=== PATIENT | male | born 1950 | race Caucasian/White ===

== ENCOUNTER 2023-07-27 19:22 | Emergency (ER) | payer MEDICARE, SELFPAY ==
[2023-07-27 19:30] VITALS: BP 114/74; PULSE 91; RESP 16; TEMP 36.7; O2SAT 95; BMI 21.8
--- NOTE | 2023-07-27 19:51 | XR_ITS ---
The [address] [address] Patient Name: ROXANN DELAROSA MRN: [id number] date: 1950 Sex: M Assigned Patient Location: ER Current Patient Location: ER Accession/Order Number: [id number] Exam Date: 07/27/2023 20:50 Report Date: 07/27/2023 21:12 At the request of: NATHAN WEST Procedure: XR acute abdomen series EXAM: XR acute abdomen series HISTORY: Constipation COMPARISON: None. TECHNIQUE: 4 AP radiographs of the chest, abdomen and pelvis FINDINGS: CHEST: No pneumothorax or large effusion. Question sequelae of pulmonary emphysema. No consolidation. Linear opacities at the lung bases may reflect atelectasis or scarring. Normal heart size. No acute osseous abnormality. ABDOMEN/PELVIS: Nonobstructive bowel gas pattern with large stool ball in the rectal vault measuring 7.8 x 8.3 cm. No intra-abdominal free air. No intra-abdominal stone or calcification. Osseous structures of the abdomen and pelvis appear intact. XR/XR acute abdomen series IMPRESSION: Large stool ball in the rectal vault with a nonobstructive bowel gas pattern. No acute cardiopulmonary process. Question sequelae of pulmonary emphysema. Electronically authenticated by: VIC BENOIT Date: 07/27/2023 21:12
--- NOTE | 2023-07-27 19:52 | ED.ABDPAIN1 ---
HPI - Abdominal Pain General Chief Complaint: Abdominal Pain Stated Complaint: CONSTIPATION Time Seen by Provider: 07/27/23 19:38 Source: patient Mode of arrival: Wheelchair Limitations: no limitations History of Present Illness HPI narrative: patient is a 73-year-old male who presents to the emergency department for concern of constipation. Patient states he has not had a bowel movement in the last two days, they did a home enema and the patient produced only small hard stool. He has not had any fevers, chills, nausea, vomiting. He reports mild cramping in the low abdomen. He denies any history of bowel obstruction that he is aware of. He denies urinary symptoms. He states he is eating and drinking slightly less today because his belly feels full. Related Data Previous Rx's Medication Instructions Recorded polyethylene glycol 3350 17 17 g PO DAILY #119 grams 07/27/23 gram/dose oral powder (Miralax) Allergies Allergy/AdvReac Type Severity Reaction Status Date / Time latex Allergy Intermediate Verified 07/27/23 19:36 Review of Systems ROS Constitutional Denies: fever or chills Cardiovascular Denies: chest pain Respiratory Denies: shortness of breath or cough Gastrointestinal Reports: abdominal pain and constipation; Denies: nausea or vomiting Musculoskeletal Denies: back pain or neck pain Integumentary/Breast Denies: rash Neurological Denies: headache Endocrine Denies: excessive urination [facility], [facility] Social History Smoking status: Never smoker Exam Narrative Exam Narrative: Gen.: Awake, alert, in no distress Head: Normocephalic, atraumatic ENT: Moist mucous membranes Respiratory: No respiratory distress, lungs clear bilaterally Cardio: Regular rate and rhythm Gastrointestinal: Abdomen is soft, nondistended and nontender to palpation Extremities: Moves extremities equally Psych: Normal mood and affect Neuro: No focal neuro deficit Skin: Warm, dry, intact Constitutional Vital Signs, click to edit/add: Last Vital Signs Temp 98.0 F 07/27/23 19:30 Pulse 91 H 07/27/23 19:30 Resp 16 07/27/23 19:30 BP 114/74 07/27/23 19:30 Pulse Ox 95 07/27/23 19:30 O2 Del Method Room Air 07/27/23 19:30 Course Vital Signs Vital signs: Vital Signs Temperature 98.0 F 07/27/23 19:30 Pulse Rate 91 H 07/27/23 19:30 Respiratory Rate 16 07/27/23 19:30 Blood Pressure 114/74 07/27/23 19:30 Pulse Oximetry 95 07/27/23 19:30 Oxygen Delivery Method Room Air 07/27/23 19:30 Temperature 98.0 F 07/27/23 19:30 Pulse Rate 91 H 07/27/23 19:30 Respiratory Rate 16 07/27/23 19:30 Blood Pressure 114/74 07/27/23 19:30 Pulse Oximetry 95 07/27/23 19:30 Oxygen Delivery Method Room Air 07/27/23 19:30 MDM - Abdominal Pain MDM Narrative Medical decision making narrative: Patient with stable vital signs in the ED, abdomen is soft and benign. Labs are unremarkable and xrays show a large fecal impaction in the rectum. Urojet used for comfort with digital disimpaction with minimal results, several small hard pieces of stool were removed and the patient attempted to have a bowel movement with no results. An enema was given by nursing staff with significant bowel movement produced at bedside. Patient is discharged home with stool softeners to follow-up with PCP. Return to the Emergency Room if symptoms change or worsen. Medical Records Attestation: I reviewed the patient's medical records. Lab Data Attestation: I reviewed the patient's lab results. Labs: Lab Results 07/27/23 Range/Units 20:08 WBC 7.8 (4.0-11.0) 10^3/uL RBC 3.93 L (4.70-6.10) 10^6/uL Hgb 10.9 L (14.0-18.0) g/dL Hct 34.7 L (42.0-54.0) % MCV 88.3 (80.0-94.0) fL MCH 27.7 (25.9-34.0) pg MCHC 31.4 (29.9-35.2) g/dL RDW 25.2 H (11.0-15.0) % Plt Count 146 L (150-450) 10^3/uL MPV 8.6 L (9.5-13.5) fL Neut % (Auto) 83.6 H (43.0-75.0) % Lymph % (Auto) 9.7 L (20.5-60.0) % [place] % (Auto) 5.9 (1.7-12.0) % Eos % (Auto) 0.4 L (0.9-7.0) % Baso % (Auto) 0.1 L (0.2-2.0) % Neut # (Auto) 6.5 (1.4-6.5) 10^3/uL Lymph # (Auto) 0.8 L (1.2-3.8) 10^3/uL [place] # (Auto) 0.5 (0.3-0.8) 10^3/uL Eos # (Auto) 0.0 (0.0-0.7) 10^3/uL Baso # (Auto) 0.0 (0.0-0.1) 10^3/uL Abs Immat Gran (auto) 0.02 (0.00-0.03) 10^3/uL Imm/Tot Granulo (auto) 0.3 (0.0-0.5) % Sodium 134 L (136-145) mmol/L Potassium 3.4 L (3.5-5.1) mmol/L Chloride 98 (98-107) mmol/L Carbon Dioxide 33.1 H (21.0-32.0) mmol/L Anion Gap 6.3 BUN 29.0 H (7.0-18.0) mg/dL Creatinine 1.23 (0.70-1.30) mg/dL Est GFR ( Amer) >60 (>=60) Est GFR (Non-Af Amer) 58 L (>=60) BUN/Creatinine Ratio 23.6 Glucose 131 H (74-106) mg/dL Calcium 9.1 (8.5-10.1) mg/dL Total Bilirubin 0.7 (0.2-1.0) mg/dL AST 18 (15-37) U/L ALT 27 (16-63) U/L Alkaline Phosphatase 79 (46-116) U/L Total Protein 7.8 (6.4-8.2) g/dL Albumin 3.5 (3.4-5.0) g/dL Globulin 4.3 g/dL Albumin/Globulin Ratio 0.8 Imaging Data Abdominal x-ray: Attestation: I have reviewed the pertinent imaging results. Radiologist's impression: Procedure: XR acute abdomen series EXAM: XR acute abdomen series HISTORY: Constipation COMPARISON: None. TECHNIQUE: 4 AP radiographs of the chest, abdomen and pelvis FINDINGS: CHEST: No pneumothorax or large effusion. Question sequelae of pulmonary emphysema. No consolidation. Linear opacities at the lung bases may reflect atelectasis or scarring. Normal heart size. No acute osseous abnormality. ABDOMEN/PELVIS: Nonobstructive bowel gas pattern with large stool ball in the rectal vault measuring 7.8 x 8.3 cm. No intra-abdominal free air. No intra-abdominal stone or calcification. Osseous structures of the abdomen and pelvis appear intact. IMPRESSION: Large stool ball in the rectal vault with a nonobstructive bowel gas pattern. No acute cardiopulmonary process. Question sequelae of pulmonary emphysema. Electronically authenticated by: VIC BENOIT Date: 07/27/2023 21:12 Discharge Plan Discharge Chief Complaint: Abdominal Pain Clinical Impression: Fecal impaction in rectum, Constipation Patient Disposition: Home, Self-Care Time of Disposition Decision: 22:00 Condition: Good Prescriptions / Home Meds: New polyethylene glycol 3350 [Miralax] 17 gram/dose powder 17 g PO DAILY Qty: 119 0RF Instructions: Constipation (ED), High Fiber Diet (ED), Fecal Impaction (ED) Stand Alone Forms: Portal Instructions Referrals: Physician,Non-Staff, MD [Primary Care Provider] - 1 week Discharge Date/Time: 07/27/23 22:20
[2023-07-27 20:18] LABS: Basophils Percent Auto 0.1 % (0.2-2.0); Eosinophils Percent Auto 0.4 % (0.9-7.0); Hematocrit 34.7 % (42.0-54.0); Hemoglobin 10.9 g/dL (14.0-18.0); Immature Granulocytes Abs Auto 0.02 10^3/uL (0.00-0.03); Immature Granulocytes Pct Auto 0.3 % (0.0-0.5); Lymphocytes Absolute Auto 0.8 10^3/uL (1.2-3.8); Lymphocytes Percent Auto 9.7 % (20.5-60.0); Mean Corpuscular HGB Conc 31.4 g/dL (29.9-35.2); Mean Corpuscular Hemoglobin 27.7 pg (25.9-34.0); Mean Corpuscular Volume 88.3 fL (80.0-94.0); Mean Platelet Volume 8.6 fL (9.5-13.5); Monocytes Absolute Auto 0.5 10^3/uL (0.3-0.8); Monocytes Percent Auto 5.9 % (1.7-12.0); Neutrophils Absolute Auto 6.5 10^3/uL (1.4-6.5); Neutrophils Percent Auto 83.6 % (43.0-75.0); Platelet Count 146 10^3/uL (150-450); Red Blood Count 3.93 10^6/uL (4.70-6.10); Red Cell Distribution Width 25.2 % (11.0-15.0); White Blood Count 7.8 10^3/uL (4.0-11.0)
[2023-07-27 20:35] LABS: Alanine Aminotransferase 27 U/L (16-63); Albumin Globulin Ratio 0.8; Albumin Level 3.5 g/dL (3.4-5.0); Alkaline Phosphatase 79 U/L (46-116); Anion Gap 6.3; Aspartate Amino Transferase 18 U/L (15-37); BUN Creatinine Ratio 23.6; Bilirubin Total 0.7 mg/dL (0.2-1.0); Calcium 9.1 mg/dL (8.5-10.1); Carbon Dioxide 33.1 mmol/L (21.0-32.0); Chloride 98 mmol/L (98-107); Estimated GFR (African America >60 (>=60); Estimated GFR (Non-African Ame 58 (>=60); Globulin 4.3 g/dL; Glucose 131 mg/dL (74-106); Potassium 3.4 mmol/L (3.5-5.1); Sodium 134 mmol/L (136-145); Total Protein 7.8 g/dL (6.4-8.2)
[2023-07-27] MEDS: LIDOCAINE 2% JELLY 20 ML UR (21:25)
== END 2023-07-27 22:20 | disposition home or self-care (01) ==
PROVIDERS: Physician Assistant; Emergency Provider Emergency Medicine
DX: K59.00 Constipation, unspecified (principal)
CPT/HCPCS: 36415; 74022; 80053; 85025; 99284

== ENCOUNTER 2024-05-06 04:03 | Inpatient (IN) | payer MEDICARE, SELFPAY ==
[2024-05-06] VITALS (36 sets, daily range): BP systolic 81–179; BP diastolic 50–113; PULSE 83–123; TEMP 36.6–37.3; O2SAT 90–97; BMI 19.9; BMI 20.7
--- NOTE | 2024-05-06 04:24 | XR_ITS ---
The [address] [address] Patient Name: ROXANN DELAROSA MRN: [id number] date: 1950 Sex: M Assigned Patient Location: ER Current Patient Location: ER Accession/Order Number: [id number] Exam Date: 05/06/2024 04:45 Report Date: 05/06/2024 05:14 At the request of: REILLY BUSH Procedure: XR chest 1V EXAMINATION: XR chest 1V HISTORY: Weakness COMPARISON: XR chest 12/26/2022 FINDINGS: LUNGS: Underexpanded lungs with mild patchy and confluent opacities within lung bases. VASCULATURE: No increased pulmonary vasculature. PLEURA: Small left pleural effusion cannot be excluded. CARDIAC: Obscured. MEDIASTINUM: No visible mass or adenopathy. BONES: No fracture or visible bone lesion. OTHER: Negative. XR/XR chest 1V IMPRESSION: 1. Low lung volume examination with mild-moderate bibasilar infiltrates versus atelectasis. 2. Loss of left lateral costophrenic angle; infiltrate/atelectasis versus pleural effusion. Electronically authenticated by: OBINNA ARORA Date: 05/06/2024 05:14
--- NOTE | 2024-05-06 04:24 | ECG_ITS ---
The [facility] Test Date: 2024-05-06 Pat Name: ROXANN DELAROSA Department: Room: - Gender: Male Patient Office Rep: : 1950 Requested By: NEO SINGH Order Number: [id number] Reading MD: ANDREI CAMPBELL Measurements Intervals [place] Rate: 121 P: 34 OK: 164 QRS: 116 QRSD: 120 T: 17 QT: 324 QTc: 396 Interpretive Statements 1120 Sinus tachycardia 1470 with occasional supraventricular premature complexes 2450 Right bundle branch block 2730 Left posterior fascicular block [address] depression, possible subendocardial injury 9150 abnormal ECG Electronically Signed On 05-06-2024 6:33:40 EDT by ANDREI CAMPBELL
--- NOTE | 2024-05-06 04:26 | ED.GENADUL1 ---
HPI HPI - General Adult General Chief complaint: Abdominal Pain Stated complaint: weakness Time Seen by Provider: 05/06/24 04:18 Source: patient Mode of arrival: ambulance Limitations: no limitations History of Present Illness HPI narrative: 74-year-old male presents to the emergency department for generalized weakness. He is a poor historian. He is accompanied by family member who gives the majority of history. She states that this weakness started last night. He tried to get out of bed to go to the bathroom and could not get up and she was trying to help him and he urinated the bed. His appetite was poor last night, he only ate about half of his dinner. He has not had a known fever. She states that he always coughs, that is no different. Related Data Previous Rx's ?Medication ?Instructions ?Recorded polyethylene glycol 3350 17 17 g PO DAILY #119 grams 07/27/23 gram/dose oral powder (Miralax) Allergies Allergy/AdvReac Type Severity Reaction Status Date / Time latex Allergy Intermediate Verified 05/06/24 04:12 Opioid HPI Opioid Management Most Recent Opioid Data: No Data to Display Review of Systems ROS Narrative A ten point review of systems is negative except as noted above. PFSH PFS Social History Smoking status: Never smoker Exam Narrative Exam Narrative: Nurses note and vital signs reviewed and patient is not hypoxic. General: The patient appears generally weak. He prefers to keep his eyes closed. Skin: Warm, dry, no pallor noted. There is no rash noted. Head: Normocephalic, atraumatic Eye: Normal conjunctiva, no drainage Ears, Nose, Mouth, and Throat: oral mucosa is somewhat dry. Nares patent. Cardiovascular: Regular Rate and Rhythm, tachycardia Respiratory: Patient is in no distress, no accessory muscle use, lungs are clear to auscultation, no wheezing, rales or rhonchi, he coughs from time to time Back: non-tender GI: Soft and nontender Musculoskeletal: The patient has no evidence of calf tenderness, no pitting edema, symmetrical pulses noted bilaterally Neurological: Awake and alert. He can tell me his name. He knows which hospital he is in and he told me it is 2022. Psychiatric: Cooperative Constitutional Vital Signs, click to edit/add: Last Vital Signs Temp 98 F 05/06/24 04:05 Pulse 112 H 05/06/24 06:10 Resp 11 L 05/06/24 06:05 BP 150/89 H 05/06/24 05:30 Pulse Ox 97 05/06/24 05:30 O2 Del Method Room Air 05/06/24 04:05 Course Vital Signs Vital signs: Vital Signs Temperature 98 F 05/06/24 04:05 Pulse Rate 123 H 05/06/24 04:05 Respiratory Rate 18 05/06/24 04:05 Blood Pressure 148/100 H 05/06/24 04:05 Pulse Oximetry 95 05/06/24 04:05 Oxygen Delivery Method Room Air 05/06/24 04:05 Temperature 98 F 05/06/24 04:05 Pulse Rate 112 H 05/06/24 06:10 Respiratory Rate 11 L 05/06/24 06:05 Blood Pressure 150/89 H 05/06/24 05:30 Pulse Oximetry 97 05/06/24 05:30 Oxygen Delivery Method Room Air 05/06/24 04:05 Medical Decision Making [facility] Narrative Medical decision making narrative: Chest x-ray per radiologist indicates that he has pneumonia. Blood cultures were obtained and he was given IV antibiotics. The patient has right lower quadrant pain and a CAT scan of his abdomen is pending and the patient is signed out to Dr. Thomas at change of shift. Differential Diagnosis Differential Diagnosis: Pneumonia, UTI, COVID, dehydration Lab Data Lab results reviewed: Yes I reviewed the patient's lab results Labs: Lab Results 05/06/24 05/06/24 05/06/24 Range/Units 04:12 04:13 04:40 WBC 8.7 (4.0-11.0) 10^3/uL RBC 3.74 L (4.70-6.10) 10^6/uL Hgb 11.2 L (14.0-18.0) g/dL Hct 35.9 L (42.0-54.0) % MCV 96.0 H (80.0-94.0) fL MCH 29.9 (25.9-34.0) pg MCHC 31.2 (29.9-35.2) g/dL RDW 15.1 H (11.0-15.0) % Plt Count 210 (150-450) 10^3/uL MPV 8.7 L (9.5-13.5) fL Neut % (Auto) 83.2 H (43.0-75.0) % Lymph % (Auto) 6.2 L (20.5-60.0) % [place] % (Auto) 9.7 (1.7-12.0) % Eos % (Auto) 0.5 L (0.9-7.0) % Baso % (Auto) 0.1 L (0.2-2.0) % Neut # (Auto) 7.2 H (1.4-6.5) 10^3/uL Lymph # (Auto) 0.5 L (1.2-3.8) 10^3/uL [place] # (Auto) 0.8 (0.3-0.8) 10^3/uL Eos # (Auto) 0.0 (0.0-0.7) 10^3/uL Baso # (Auto) 0.0 (0.0-0.1) 10^3/uL Abs Immat Gran (auto) 0.03 (0.00-0.03) 10^3/uL Imm/Tot Granulo (auto) 0.3 (0.0-0.5) % Sodium 137 (136-145) mmol/L Potassium 4.1 (3.5-5.1) mmol/L Chloride 98 (98-107) mmol/L Carbon Dioxide 30.7 (21.0-32.0) mmol/L Anion Gap 12.4 BUN 14.0 (7.0-18.0) mg/dL Creatinine 1.13 (0.70-1.30) mg/dL Est GFR ( Amer) >60 (>=60) Est GFR (Non-Af Amer) >60 (>=60) BUN/Creatinine Ratio 12.4 Glucose 189 H (74-106) mg/dL Calcium 10.2 H (8.5-10.1) mg/dL Troponin I High Sens 11.1 (4.0-76.1) pg/mL Urine Color Lt. yellow (YELLOW) Urine Clarity Clear (CLEAR) Urine pH 8.5 (5.0-9.0) Ur Specific [place] 1.020 (1.005-1.025) Urine Protein Trace (NEG/TRACE) mg/dL Urine Glucose (UA) Negative (NEGATIVE) mg/dL Urine Ketones 15 A (NEGATIVE) mg/dL Urine Occult Blood Negative (NEGATIVE) Urine Nitrite Negative (NEGATIVE) Urine Bilirubin Negative (NEGATIVE) Urine Urobilinogen 0.2 (0.2-1.0) EU/dL Ur Leukocyte Esterase Negative (NEGATIVE) Urine RBC None seen (0-2) #/HPF Urine WBC None seen (NONE SEEN) #/HPF Ur Squamous Epith Cells None seen (NONE/RARE) #/LPF Urine Crystals None seen (None Seen) #/HPF Amorphous Sediment Many Urine Bacteria None seen (NONE SEEN) #/HPF Urine Casts None seen (NONE SEEN) #/LPF Urine Mucus None seen (NONE SEEN) Ur Culture Indicated? No SARS-CoV-2 Ag (CV2AG) Negative (NEGATIVE) Imaging Data Chest x-ray: Radiologist's impression: ITS Impressions Chest X-Ray 05/06/24 04:24 IMPRESSION: 1. Low lung volume examination with mild-moderate bibasilar infiltrates versus atelectasis. 2. Loss of left lateral costophrenic angle; infiltrate/atelectasis versus pleural effusion. Electronically authenticated by: OBINNA ARORA Date: 05/06/2024 05:14 Abdomen/Pelvis CT 05/06/24 05:20 IMPRESSION: There is a mass along the mid ascending colon measuring 3.4 x 2.3 x 2.4 cm in longitudinal, transverse and AP dimensions which is highly suspicious for a malignancy. There are mild stranding densities within the pericolonic fat adjacent to this which track inferiorly along the right colonic gutter. There are a few lymph nodes adjacent to this region measuring 1.3 x 1.1 cm and 1.0 x 0.6 cm suspicious for metastatic disease. There are several noncalcified nodules within the lower chest bilaterally measuring up to 1.9 cm on the right and 1.5 cm on the left, suspicious for metastatic disease. A CT examination of the chest is recommended. Dependent on the clinical management of the patient, this could be performed as a scheduled examination There are numerous hypodense lesions scattered throughout the liver ranging in size from 0.4 cm to 4.1 cm, highly suspicious for metastatic disease. There is consolidation suggesting atelectasis and/or infiltrate within both lower lobes. The bowel gas pattern is nonobstructive with a large amount of stool within the colon. There are diverticula along the distal ascending and sigmoid colon without diverticulitis. The appendix is prominent measuring 0.9 cm in transverse dimension however there is no significant periappendiceal inflammatory reaction. There is circumferential thickening of the esophageal wall which can be associated with an esophagitis or sequelae of chronic gastroesophageal reflux. There is mild circumferential thickening of the urinary bladder wall and moderate enlargement of the prostate gland. Electronically authenticated by: BERYL MEADE Date: 05/06/2024 06:45 ECG Data Attestation: I personally reviewed and interpreted this ECG as follows: (EKG on my interpretation shows sinus tachycardia.) Discharge Plan Discharge Patient Disposition: Still a Patient
[2024-05-06 04:31] LABS: Bilirubin Urine NEGATIVE (NEGATIVE); Blood Urine NEGATIVE (NEGATIVE); Clarity Urine CLEAR (CLEAR); Color Urine LT. YELLOW (YELLOW); Glucose Urine UA NEGATIVE (NEGATIVE); Ketones Urine 15 mg/dL (NEGATIVE); Leukocyte Esterase Urine NEGATIVE (NEGATIVE); Nitrite Urine NEGATIVE (NEGATIVE); Protein Urine TRACE mg/dL (NEG/TRACE); Urobilinogen Urine 0.2 EU/dL (0.2-1.0); pH Urine 8.5 (5.0-9.0)
[2024-05-06 04:31] LABS: Basophils Percent Auto 0.1 % (0.2-2.0); Eosinophils Percent Auto 0.5 % (0.9-7.0); Hematocrit 35.9 % (42.0-54.0); Hemoglobin 11.2 g/dL (14.0-18.0); Immature Granulocytes Abs Auto 0.03 10^3/uL (0.00-0.03); Immature Granulocytes Pct Auto 0.3 % (0.0-0.5); Lymphocytes Absolute Auto 0.5 10^3/uL (1.2-3.8); Lymphocytes Percent Auto 6.2 % (20.5-60.0); Mean Corpuscular HGB Conc 31.2 g/dL (29.9-35.2); Mean Corpuscular Hemoglobin 29.9 pg (25.9-34.0); Mean Platelet Volume 8.7 fL (9.5-13.5); Monocytes Absolute Auto 0.8 10^3/uL (0.3-0.8); Monocytes Percent Auto 9.7 % (1.7-12.0); Neutrophils Absolute Auto 7.2 10^3/uL (1.4-6.5); Neutrophils Percent Auto 83.2 % (43.0-75.0); Platelet Count 210 10^3/uL (150-450); Red Blood Count 3.74 10^6/uL (4.70-6.10); Red Cell Distribution Width 15.1 % (11.0-15.0); White Blood Count 8.7 10^3/uL (4.0-11.0)
[2024-05-06 04:37] LABS: Amorphous Sediment Urine MANY; Bacteria Urine NONE SEEN #/HPF (NONE SEEN); Cast Seen? NONE SEEN #/LPF (NONE SEEN); Crystals Seen? None Seen #/HPF (None Seen); Mucus Urine NONE SEEN (NONE SEEN); RBC Urine NONE SEEN #/HPF (0-2); Squamous Epithelial Cell Urine NONE SEEN #/LPF (NONE/RARE); Urine Culture Indicated NO; WBC Urine NONE SEEN #/HPF (NONE SEEN)
[2024-05-06 04:41] LABS: Anion Gap 12.4; BUN Creatinine Ratio 12.4; Calcium 10.2 mg/dL (8.5-10.1); Carbon Dioxide 30.7 mmol/L (21.0-32.0); Chloride 98 mmol/L (98-107); Estimated GFR (African America >60 (>=60); Estimated GFR (Non-African Ame >60 (>=60); Glucose 189 mg/dL (74-106); Potassium 4.1 mmol/L (3.5-5.1); Sodium 137 mmol/L (136-145)
[2024-05-06] MEDS: 0.9 % SODIUM CHLORIDE 1,000 ML 1000 ML IV (04:46)
[2024-05-06 04:49] LABS: Troponin I High Sensitivity 11.1 pg/mL (4.0-76.1)
[2024-05-06 05:11] LABS: SARS-CoV-2 Ag NEGATIVE (NEGATIVE)
--- NOTE | 2024-05-06 05:20 | CT_ITS ---
The [address] [address] Patient Name: ROXANN DEALROSA MRN: [id number] date: 1950 Sex: M Assigned Patient Location: ER Current Patient Location: ER Accession/Order Number: [id number] Exam Date: 05/06/2024 05:45 Report Date: 05/06/2024 06:45 At the request of: REILLY BUSH Procedure: CT abdomen pelvis w con EXAM: CT abdomen pelvis w con HISTORY: Right lower quadrant pain. COMPARISON: None. TECHNIQUE: Routine CT abdomen/pelvis with intravenous contrast. FINDINGS: Lower chest: There is consolidation suggesting atelectasis and/or infiltrate within both lower lobes. There is right middle lobe and lingular atelectasis. There are several noncalcified nodules within the lower chest bilaterally measuring up to 1.9 cm on the right and 1.5 cm on the left, suspicious for metastatic disease. Liver: There are numerous hypodense lesions scattered throughout the liver ranging in size from 0.4 cm to 4.1 cm, highly suspicious for metastatic disease. Gallbladder/biliary tree: Unremarkable. Pancreas: Unremarkable. Spleen: Numerous calcified granuloma scattered throughout the spleen. Adrenal glands: Unremarkable. Kidneys: Unremarkable. Bowel: There is a mass along the mid ascending colon measuring 3.4 x 2.3 x 2.4 cm in longitudinal, transverse and AP dimensions which is highly suspicious for a malignancy. There are mild stranding densities within the pericolonic fat adjacent to this which track inferiorly along the right colonic gutter. There are a few lymph nodes adjacent to this region measuring 1.3 x 1.1 cm and 1.0 x 0.6 cm suspicious for metastatic disease. The bowel gas pattern is nonobstructive with a large amount of stool within the colon. There are diverticula along the distal ascending and sigmoid colon without diverticulitis. The appendix is prominent measuring 0.9 cm in transverse dimension however there is no significant periappendiceal inflammatory reaction. There is mild circumferential thickening of the esophageal wall which can be associated with an esophagitis or sequelae of chronic gastroesophageal reflux. The stomach is unremarkable. The small bowel is normal caliber. Vasculature: Severe atheromatous calcification along the abdominal aorta. Moderate atheromatous calcification iliac and common femoral arteries. The IVC is unremarkable. Inflammation: There is no free air or abscess. Lymphadenopathy: Couple lymph nodes adjacent to the colonic mass as described. No pathologically enlarged lymph nodes are otherwise seen. Pelvis: Mild circumferential thickening of the urinary bladder wall. There is moderate enlargement of the prostate gland. There are a few phleboliths within the pelvis. Musculoskeletal: The osseous structures are unremarkable. CT/CT abdomen pelvis w con IMPRESSION: There is a mass along the mid ascending colon measuring 3.4 x 2.3 x 2.4 cm in longitudinal, transverse and AP dimensions which is highly suspicious for a malignancy. There are mild stranding densities within the pericolonic fat adjacent to this which track inferiorly along the right colonic gutter. There are a few lymph nodes adjacent to this region measuring 1.3 x 1.1 cm and 1.0 x 0.6 cm suspicious for metastatic disease. There are several noncalcified nodules within the lower chest bilaterally measuring up to 1.9 cm on the right and 1.5 cm on the left, suspicious for metastatic disease. A CT examination of the chest is recommended. Dependent on the clinical management of the patient, this could be performed as a scheduled examination There are numerous hypodense lesions scattered throughout the liver ranging in size from 0.4 cm to 4.1 cm, highly suspicious for metastatic disease. There is consolidation suggesting atelectasis and/or infiltrate within both lower lobes. The bowel gas pattern is nonobstructive with a large amount of stool within the colon. There are diverticula along the distal ascending and sigmoid colon without diverticulitis. The appendix is prominent measuring 0.9 cm in transverse dimension however there is no significant periappendiceal inflammatory reaction. There is circumferential thickening of the esophageal wall which can be associated with an esophagitis or sequelae of chronic gastroesophageal reflux. There is mild circumferential thickening of the urinary bladder wall and moderate enlargement of the prostate gland. Electronically authenticated by: BERYL MEADE Date: 05/06/2024 06:45
[2024-05-06] MEDS: CEFTRIAXONE 1,000 MG in 0.9 % SODIUM CHLORIDE 50 ML 100 MG IV (06:13)
[2024-05-06] MEDS: AZITHROMYCIN 500 MG in 0.9 % SODIUM CHLORIDE 250 ML 250 MG IV (07:13)
[2024-05-06 08:10] LABS: Alanine Aminotransferase 70 U/L (16-63); Albumin Globulin Ratio 0.6; Albumin Level 3.1 g/dL (3.4-5.0); Alkaline Phosphatase 212 U/L (46-116); Aspartate Amino Transferase 153 U/L (15-37); Bilirubin Direct 0.1 mg/dL (0.0-0.2); Bilirubin Total 0.5 mg/dL (0.2-1.0); Globulin 5.2 g/dL; Total Protein 8.3 g/dL (6.4-8.2)
[2024-05-06] MEDS: ALBUTEROL SULFATE 2.5 MG/3 ML VIAL NEB IH ×3 (11:29→20:04)
[2024-05-06] MEDS: BUDESONIDE 0.5 MG/2 ML AMPULE NEB IH ×2 (11:30→20:04)
--- NOTE | 2024-05-06 11:31 | CM.NOTE ---
Rounds made with Dr. Nelson. Plan of care discussed with Mr. Rm per Dr. Nelson. No discharge today.
[2024-05-06] MEDS: LACTOSE -REDUCED (ENSURE ORIGINAL 237 ML LIQUID) PO (12:26)
[2024-05-06] MEDS: ENOXAPARIN SODIUM 40 MG/0.4 ML SYRINGE SUBQ (12:26)
--- NOTE | 2024-05-06 12:26 | P.HP_ITS ---
<Statement entered by Demetrius Nelson MD - 05/06/24 18:06> Patient seen and examined, agree with assessment and plan below. Presented with weakness and found pneumonia. C/o abdominal pain and found mass in colon suggestive of cancer. Started zithromax and rocephin. CT chest ordered. General surgery consulted. History of tongue cancer and follows with oncology at . Diagnosis: 1. Pneumonia 2. Colon mass 3. History of tongue cancer 4. DM2 5. HTN 6. PVD HPI H&P: HPI History of Present Illness Chief complaint: PNEUMONIA Narrative: 05/06/24 1000 This is a 74-year-old male patient who presented to the ED early this morning complaining of abdominal pain and frequent urination. The patient is a poor historian cannot give a clear course of events leading to his arrival in the ED. He reports his right lower quadrant pain is somewhat acute and he thinks present for less than 1 week. He also notes chronic constipation and recent weight loss of approximately 10 pounds. He presented to the ED for further evaluation. Workup in the ED revealed hypertension (154/97) and mild tachycardia (95-115). A CT of the abdomen revealed colonic mass along the mid ascending colon, highly suspicious for malignancy. There are also lymph nodes adjacent to this region, hypodense lesions of the liver, and noncalcified nodules of the lower chest bilaterally which are all suspicious for metastatic disease. In addition chest x-ray revealed mild to moderate bibasilar infiltrates suspicious for pneumonia. The patient is being admitted to the hospitalist service as an inpatient for bilateral pneumonia and new finding of a colonic mass requiring further workup and general surgery specialty care. At the time of my exam the patient is resting quietly in bed. He has a flat affect and difficulty giving details of his recent medical course. He was notic eably concerned about the finding of a colonic mass with possible metastatic disease. He will be seen in consult later today by Dr. Salas, general surgeon, and hopefully we can at least have a biopsy performed to definitively assess for malignancy. The pt has a frequent loose cough, but remains afebrile at this time. He reports feeling mildly SOB, especially with activity. A liver panel was added on to the ED labs d/t the finding of liver lesions and transaminitis was noted. We will also add on an ammonia level to assess for hyperammonemia. Opioid HPI Opioid Management Most Recent Opioid Data: Last Pain Scale 0 05/06/24 10:22 Last Pain Intensity 0 05/06/24 10:22 Last ORT Total Score 0 05/06/24 08:14 Last ORT Risk Category Low Risk 05/06/24 08:14 Review of Systems ROS Status of ROS 10 or more systems reviewed and unremark able except as noted in history and below [facility] Medical History (Updated 05/06/24 @ 13:23 by Manuela Lamb NP) Asthma ?J45.909 - Unspecified asthma, uncomplicated (ICD-10) Hyperlipidemia ?E78.5 - Hyperlipidemia, unspecified (ICD-10) Hypothyroidism ?E03.9 - Hypothyroidism, unspecified (ICD-10) History of tongue cancer ?Z85.810 - Personal history of malignant neoplasm of tongue (ICD-10) Type 2 diabetes mellitus with hyperglycemia ?E11.65 - Type 2 diabetes mellitus with hyperglycemia (ICD-10) PVD (peripheral vascular disease) ?I73.9 - Peripheral vascular disease, unspecified (ICD-10) Benign essential hypertension ?I10 - Essential (primary) hypertension (ICD-10) Intraparenchymal hemorrhage of brain ?I61.9 - Nontraumatic intracerebral hemorrhage, unspecified (ICD-10) Social History Smoking status: Never smoker Highest level of school completed/degree received: decline to answer Do you think of yourself as: straight/heterosexual Gender Identity: male Meds Home Medications and Allergies Home Medications ?Medication ?Instructions ?Recorded ?Confirmed ?Type aspirin 81 mg chewable tablet 1 tab PO .qd 05/06/24 05/06/24 History atorvastatin 40 mg tablet 40 mg PO .qd 05/06/24 05/06/24 History fluticasone fur. 100 mcg-umeclid 1 inh inhalation Q24H 05/06/24 05/06/24 History 62.5 mcg-vilant 25 mcg inhalat.powder (Trelegy Ellipta) levothyroxine 75 mcg tablet 75 mcg PO .qd 05/06/24 05/06/24 History Allergies Allergy/AdvReac Type Severity Reaction Status Date / Time latex Allergy Intermediate Verified 05/06/24 04:12 Exam Constitutional Vital Signs, click to edit/add: Last Vital Signs Temp 98.5 F 05/06/24 08:24 Pulse 104 H 05/06/24 12:00 Resp 12 05/06/24 08:24 BP 129/84 05/06/24 08:24 Pulse Ox 91 L 05/06/24 11:32 O2 Del Method Room Air 05/06/24 11:32 Common normals: no apparent distress, oriented x3 and alert General appearance: cooperative and frail appearing Nutritional appearance: underweight Orientation/consciousness: Yes awake HENMT Common normals: normocephalic, head/scalp atraumatic, hearing grossly normal bilaterally, external nose normal and moist oral mucous membranes Eye Common normals: PERRL, EOMs intact bilaterally, conjunctivae normal and no scleral icterus Alignment: alignment normal Eyelid: eyelids normal Neck & C-Spine Common normals: full ROM, supple and no JVD Chest Common normals: inspection of chest normal Chest: symmetrical chest wall rise Respiratory Common normals: normal respiratory effort, no retractions and no use of a ccessory muscles Auscultation: rhonchi (LLL) and wheezes (Faint, EE RLL) Cardio Common normals: no JVD, regular rate, S1 normal heart sound, S2 normal heart sound, no gallops, no clicks, no murmurs, no rub and peripheral pulses 2+ throughout Rhythm: other (Mostly regular, but frequent ectopy noted) GI Common normals: Normal to inspection, nondistended, normoactive bowel sounds present, soft to palpation, no hepatosplenomegaly, no masses and no bruits Palpation: tender (RUQ); no guarding, not rigid and no rebound tenderness present Bladder/kidney exam: bladder normal to palpation Back & Pelvis Common normals: thoracic and lumbar spine normal to inspection Extremity Common normals: normal capillary refill and no pedal edema General: normal exam except as noted; no clubbing and no cyanosis Neuro [place]alis Coma Scale: GCS not evaluated Common normals: CN's II-XII intact bilaterally, moves all extremities, no focal motor deficits and no sensory deficits noted Speech: speech normal Motor exam: strength 5/5 throughout Psych Common normals: mental status grossly normal, thought process normal and activity/motor behavior normal Results Labs Labs: Short CBC 05/06/24 Range/Units 04:13 WBC 8.7 (4.0-11.0) 10^3/uL Hgb 11.2 L (14.0-18.0) g/dL Hct 35.9 L (42.0-54.0) % Plt Count 210 (150-450) 10^3/uL BMP 05/06/24 04:13 Sodium 137 Potassium 4.1 Chloride 98 Carbon Dioxide 30.7 BUN 14.0 Creatinine 1.13 Glucose 189 H Calcium 10.2 H Liver Function 05/06/24 Range/Units 04:13 Total Bilirubin 0.5 (0.2-1.0) mg/dL Direct Bilirubin 0.1 (0.0-0.2) mg/dL AST 153 H (15-37) U/L ALT 70 H (16-63) U/L Alkaline Phosphatase 212 H (46-116) U/L Albumin 3.1 L (3.4-5.0) g/dL Urine 05/06/24 Range/Units 04:12 Urine Color Lt. yellow (YELLOW) Urine Clarity Clear (CLEAR) Urine pH 8.5 (5.0-9.0) Ur Specific [place] 1.020 (1.005-1.025) Urine Protein Trace (NEG/TRACE) mg/dL Urine Glucose (UA) Negative (NEGATIVE) mg/dL Pulse Oximetry Attestation: I have reviewed the pertinent pulse oximetry results. Imaging Chest x-ray: Attestation: I have reviewed the pertinent imaging results. Radiologist's impression: IMPRESSION: 1. Low lung volume examination with mild-moderate bibasilar infiltrates versus atelectasis. 2. Loss of left lateral costophrenic angle; infiltrate/atelectasis versus pleural effusion. CT scan - abdomen: Attestation: I have reviewed the pertinent imaging results. Radiologist's impression: IMPRESSION: There is a mass along the mid ascending colon measuring 3.4 x 2.3 x 2.4 cm in longitudinal, transverse and AP dimensions which is highly suspicious for a malignancy. There are mild stranding densities within the pericolonic fat adjacent to this which track inferiorly along the right colonic gutter. There are a few lymph nodes adjacent to this region measuring 1.3 x 1.1 cm and 1.0 x 0.6 cm suspicious for metastatic disease. There are several noncalcified nodules within the lower chest bilaterally measuring up to 1.9 cm on the right and 1.5 cm on the left, suspicious for metastatic disease. A CT examination of the chest is recommended. Dependent on the clinical management of the patient, this could be performed as a scheduled examination There are numerous hypodense lesions scattered throughout the liver ranging in size from 0.4 cm to 4.1 cm, highly suspicious for metastatic disease. There is consolidation suggesting atelectasis and/or infiltrate within both lower lobes. The bowel gas pattern is nonobstructive with a large amount of stool within the colon. There are diverticula along the distal ascending and sigmoid colon without diverticulitis. The appendix is prominent measuring 0.9 cm in transverse dimension however there is no significant periappendiceal inflammatory reaction. There is circumferential thickening of the esophageal wall which can be associated with an esophagitis or sequelae of chronic gastroesophageal reflux. There is mild circumferential thickening of the urinary bladder wall and moderate enlargement of the prostate gland. Assessment and Plan Assessment and Plan (1) Mass of colon: Assessment and Plan: Acute * Adm inpatient * We expect greater than a 2 midnight stay for specialty general surgery care (biopsy vs colon resection), pain control, and IV ABX * New finding of colon mass with suspected metastatic disease to the adjacent lymph tissue, liver and chest. * A review of historical records notes a colonoscopy in Dec 2021 only noting diverticulosis without evidence of a mass * c/s General surgery - we appreciate Dr Salas' assistance with this pt's care * We are hopeful a biopsy may be possible if not a colon resection * Consider Oncology consult - pt follows outpatient with Dr Figueroa, Oncology in [place], after a previous dx of tongue CA in 2012. Outpatient follow up with his usual provider may be preferred rather than introducing a new provider during this admission (2) Pneumonia: Assessment and Plan: Acute * BLL infiltrates noted on CXR * Pt w/ subjective SOB and productive cough, but no evidence of hypoxia or fever * IVPB Rocephin and azithromycin for CAP coverage * CT chest w/ contrast tomorrow ([address] contrast dye administration for CT abdomen) to r/o metastatic disease in the lungs/chest. * XR findings may reflect post obstructive infiltrate or simply presence of metastatic lesions rather than true infectious infiltrate (3) Metastatic cancer to liver: Assessment and Plan: Acute * Suspected - multiple non-calcified lesions suspicious for metastatic disease noted on CT abdomen imaging * Defer to outpatient oncology management after discharge (4) Transaminitis: Assessment and Plan: Acute * Suspect 2/2 liver lesions suspicious for metastatic disease * CMP daily to monitor * Add on ammonia level to ED sample - pt at risk for hyperammonemia/hepatic enceph * Hold home statin for now d/t possible hepatic toxicity (5) PVD (peripheral vascular disease): Assessment and Plan: Chronic * Continue home aspirin (6) History of tongue cancer: Assessment and Plan: Chronic * S/p partial removal in 2012 * Follows w/ Dr Figueroa at cancer center in [place] (7) Hypothyroidism: Assessment and Plan: Chronic * Continue home levothyroxine * Check TSH in AM to monitor therapeutic status (8) Hyperlipidemia: Assessment and Plan: Chronic * Hold home statin for now in setting of transaminitis (9) Asthma: Assessment and Plan: Chronic * Continue home Trelegy or pharmacy substitution per formulary
[2024-05-06] MEDS: GUAIFENESIN 600 MG TAB.ER.12H PO ×2 (12:27→20:32)
[2024-05-06] MEDS: ASPIRIN 81 MG TAB.CHEW PO (12:27)
[2024-05-06] MEDS: 0.9 % SODIUM CHLORIDE 1,000 ML 100 ML IV (12:36)
--- NOTE | 2024-05-06 13:56 | PM.GSCN ---
History of Present Illness Consult details Consult date: 05/06/24 Reason for consult: abdominal pain Requesting physician: Alan Khan Narrative: Hola Rm is a 74-year-old male with a past medical history of type 2 diabetes, previous WA without CABG or stent, tongue cancer, hyperlipidemia, and hypothyroidism who presented to the emergency room today for generalized weakness and right lower quadrant abdominal pain. His said that since last night he has had an acute decline in overall function and worsening ability to ambulate. He also had a chronic cough. In the emergency room he was underwent a chest x-ray showing low lung volume with mild-moderate bibasilar infiltrates versus atelectasis as well as loss of left lateral costophrenic angle. He was given ceftriaxone and azithromycin as well as fluids for pneumonia. He subsequently underwent an abdomen/pelvis CT showing a mass along the mid ascending colon measuring 3.4 x 2.3 x 2.4 cm highly suspicious for a malignancy with mild stranding densities within the pericolonic fat, a few lymph nodes adjacent to this region measuring 1.3 x 1.1 cm and 1.0 x 0.6 cm, several noncalcified nodules within the lower chest bilaterally measuring up to 1.9 cm on the right and 1.5 cm on the left, numerous hypodense lesions scattered throughout the liver ranging in size from 0.4 cm to 4.1 cm, all of which are highly suspicious for metastatic disease. There was also consolidation suggesting atelectasis and/or infiltrate within both lower lobes. The bowel gas pattern is nonobstructive with a large amount of stool within the colon. On examination today Mr. Rm says that he has had off-and-on right lower quadrant abdominal pain for the last couple days. He denies taking any medications to make his pain better and says that nothing is worsened his pain. He said he has had stool changes including melena for over a year. He has also had intermittent constipation and has been to this ER previously for disimpaction. His last colonoscopy was approximately 20 to 30 years ago with no FIT testing or Cologuard besides this. He says that he is stooling well now no changes in stool caliber hematochezia. His says that he has had some moderate weight loss of around 10 pounds over the last 2 years due to difficulty eating and lack of appetite. He denies a history of peptic ulcer disease although he does take a baby aspirin and his says that he has had some lightheadedness and dizziness recently. He has a history of tongue cancer treated with surgical removal, radiation, and chemotherapy at [facility] with a Dr. Olvera . This was first diagnosed in 2012 and he has had yearly examinations and scopes with his most recent scope in July 2023, all have been normal. He also has a history of multiple skin cancers with removal. He has a family history of colon cancer (mother) and lung cancer (father, who was a smoker). His primary care physician is Dr. Ramirez who he last saw on the at which time he had a normal examination. He has had no major hospitalizations or surgeries besides those for his prior cancer diagnosis, including placement of a PEG tube for feeding. He did have an WA in prior to senior care but denies having stents or CABG placed at this time, he has had no cardiology follow-up since. He has no smoking history and says that he drinks a couple of beers weekly . He denies completing any exercise regularly. Review of Systems ROS Constitutional Reports: change in weight and fatigue Ears, nose, mouth, and throat Reports: difficulty swallowing Cardiovascular Denies: chest pain or edema Respiratory Reports: shortness of breath and cough Gastrointestinal Reports: abdominal pain, nausea, vomiting, constipation, difficulty swallowing and change in stool character; Denies: coffee grounds in vomit Neurological Reports: weakness in extremities; Denies: slurred speech Endocrine Reports: fatigue Hematologic/Lymphatic Denies: enlarged lymph nodes [facility] Medical History (Updated 05/06/24 @ 13:59 by Issa Salas MD) Asthma ?J45.909 - Unspecified asthma, uncomplicated (ICD-10) Hyperlipidemia ?E78.5 - Hyperlipidemia, unspecified (ICD-10) Hypothyroidism ?E03.9 - Hypothyroidism, unspecified (ICD-10) History of tongue cancer ?Z85.810 - Personal history of malignant neoplasm of tongue (ICD-10) Type 2 diabetes mellitus with hyperglycemia ?E11.65 - Type 2 diabetes mellitus with hyperglycemia (ICD-10) PVD (peripheral vascular disease) ?I73.9 - Peripheral vascular disease, unspecified (ICD-10) Benign essential hypertension ?I10 - Essential (primary) hypertension (ICD-10) Intraparenchymal hemorrhage of brain ?I61.9 - Nontraumatic intracerebral hemorrhage, unspecified (ICD-10) Social History Smoking status: Never smoker Highest level of school completed/degree received: decline to answer Do you think of yourself as: straight/heterosexual Gender Identity: male Meds Home Medications and Allergies Home Medications ?Medication ?Instructions ?Recorded ?Confirmed ?Type aspirin 81 mg chewable tablet 1 tab PO .qd 05/06/24 05/06/24 History atorvastatin 40 mg tablet 40 mg PO .qd 05/06/24 05/06/24 History fluticasone fur. 100 mcg-umeclid 1 inh inhalation Q24H 05/06/24 05/06/24 History 62.5 mcg-vilant 25 mcg inhalat.powder (Trelegy Ellipta) levothyroxine 75 mcg tablet 75 mcg PO .qd 05/06/24 05/06/24 History Allergies Allergy/AdvReac Type Severity Reaction Status Date / Time latex Allergy Intermediate Verified 05/06/24 04:12 Exam Constitutional Vital Signs, click to edit/add: Last Vital Signs Temp 99.2 F 05/06/24 13:32 Pulse 100 H 05/06/24 13:32 Resp 16 05/06/24 13:32 BP 136/80 05/06/24 13:32 Pulse Ox 91 L 05/06/24 13:32 O2 Del Method Room Air 05/06/24 13:32 Documenting provider has reviewed patient's vital signs: yes Common normals: no apparent distress and oriented x3; negative for average body habitus (malnourished) Exam limitations: physical limitations General appearance: cooperative, ill appearing, frail appearing and appears older than stated age Nutritional appearance: thin HENMT Common normals: normocephalic and head/scalp atraumatic Eye Common normals: PERRL and EOMs intact bilaterally Neck & C-Spine Other: Postsurgical scarring submandibular bilaterally Respiratory Other: Coarse breath sounds bilaterally with diminished breath sounds in bases Cardio Common normals: regular rate and regular rhythm Other: No extremity edema GI Common normals: soft to palpation and non-tender Inspection: other (Postsurgical scar subxiphoid from prior PEG tube) Auscultation: normoactive bowel sounds Palpation: soft and no hepatosplenomegaly; non-tender, no guarding and not rigid Percussion: normal to percussion Neuro Common normals: oriented x3 Sensorium/orientation: awake and alert Speech: speech normal Gait (neuro): unable to assess gait Results Labs Labs: Abnormal lab results 05/06/24 05/06/24 Range/Units 04:12 04:13 RBC 3.74 L (4.70-6.10) 10^6/uL Hgb 11.2 L (14.0-18.0) g/dL Hct 35.9 L (42.0-54.0) % MCV 96.0 H (80.0-94.0) fL RDW 15.1 H (11.0-15.0) % MPV 8.7 L (9.5-13.5) fL Neut % (Auto) 83.2 H (43.0-75.0) % Lymph % (Auto) 6.2 L (20.5-60.0) % Eos % (Auto) 0.5 L (0.9-7.0) % Baso % (Auto) 0.1 L (0.2-2.0) % Neut # (Auto) 7.2 H (1.4-6.5) 10^3/uL Lymph # (Auto) 0.5 L (1.2-3.8) 10^3/uL Glucose 189 H (74-106) mg/dL Calcium 10.2 H (8.5-10.1) mg/dL AST 153 H (15-37) U/L ALT 70 H (16-63) U/L Alkaline Phosphatase 212 H (46-116) U/L Total Protein 8.3 H (6.4-8.2) g/dL Albumin 3.1 L (3.4-5.0) g/dL Urine Ketones 15 A (NEGATIVE) mg/dL Diabetes panel 05/06/24 Range/Units 04:13 Sodium 137 (136-145) mmol/L Potassium 4.1 (3.5-5.1) mmol/L Chloride 98 (98-107) mmol/L Carbon Dioxide 30.7 (21.0-32.0) mmol/L BUN 14.0 (7.0-18.0) mg/dL Creatinine 1.13 (0.70-1.30) mg/dL Glucose 189 H (74-106) mg/dL Calcium 10.2 H (8.5-10.1) mg/dL AST 153 H (15-37) U/L ALT 70 H (16-63) U/L Alkaline Phosphatase 212 H (46-116) U/L Total Protein 8.3 H (6.4-8.2) g/dL Albumin 3.1 L (3.4-5.0) g/dL Calcium panel 05/06/24 Range/Units 04:13 Calcium 10.2 H (8.5-10.1) mg/dL Albumin 3.1 L (3.4-5.0) g/dL Pituitary panel 05/06/24 Range/Units 04:13 Sodium 137 (136-145) mmol/L Potassium 4.1 (3.5-5.1) mmol/L Chloride 98 (98-107) mmol/L Carbon Dioxide 30.7 (21.0-32.0) mmol/L BUN 14.0 (7.0-18.0) mg/dL Creatinine 1.13 (0.70-1.30) mg/dL Glucose 189 H (74-106) mg/dL Calcium 10.2 H (8.5-10.1) mg/dL Adrenal panel 05/06/24 Range/Units 04:13 Sodium 137 (136-145) mmol/L Potassium 4.1 (3.5-5.1) mmol/L Chloride 98 (98-107) mmol/L Carbon Dioxide 30.7 (21.0-32.0) mmol/L BUN 14.0 (7.0-18.0) mg/dL Creatinine 1.13 (0.70-1.30) mg/dL Glucose 189 H (74-106) mg/dL Calcium 10.2 H (8.5-10.1) mg/dL Total Bilirubin 0.5 (0.2-1.0) mg/dL AST 153 H (15-37) U/L ALT 70 H (16-63) U/L Alkaline Phosphatase 212 H (46-116) U/L Total Protein 8.3 H (6.4-8.2) g/dL Albumin 3.1 L (3.4-5.0) g/dL All other labs normal. Imaging Chest x-ray: report reviewed Abdomen CT scan report/results: report reviewed and image reviewed Assessment and Plan Assessment and Plan (1) Mass of colon: (2) Pneumonia: (3) Metastatic cancer to liver: (4) Transaminitis: (5) PVD (peripheral vascular disease): (6) History of tongue cancer: (7) Hypothyroidism: (8) Hyperlipidemia: (9) Asthma: (10) Anemia: (11) Melena: Plan Impression: 1. Abnormal CT scan of the GI tract, probable colon cancer with metastases to the liver. 2. Anemia, likely iron deficiency. 3. Melena, rule out ulcer and gastritis. 4. Pneumonia. 5. History of tongue cancer 2013 treated with radiation and chemotherapy, prior PEG tube. 6. Family history of colon cancer. 7. Type 2 diabetes mellitus. Ordering CEA. Will need to undergo both endoscopy and colonoscopy for tissue sampling of ascending colon mass as well as to evaluate for potential sources of melena; however, this will need to be deferred to likely later this week until patient has stabilized further. Hold aspirin until scopes completed. Consulting oncology. Placing dietary consult due to deterioration in functional status and recent weight loss. Considering cardiology consultation due to prior history of WA without any cardiology follow-up after and need for surgical clearance.
[2024-05-06 14:28] LABS: Ammonia 23 umol/L (11-32)
[2024-05-07] VITALS (20 sets, daily range): BP systolic 104–181; BP diastolic 67–96; PULSE 79–103; TEMP 36.3–36.9; O2SAT 91–97
[2024-05-07] MEDS: 0.9 % SODIUM CHLORIDE 1,000 ML 100 ML IV ×2 (00:31→15:57)
[2024-05-07] MEDS: ALBUTEROL SULFATE 2.5 MG/3 ML VIAL NEB IH ×3 (04:00→20:26)
[2024-05-07 05:52] LABS: Basophils Percent Auto 0.1 % (0.2-2.0); Eosinophils Percent Auto 0.1 % (0.9-7.0); Hematocrit 33.3 % (42.0-54.0); Hemoglobin 10.3 g/dL (14.0-18.0); Immature Granulocytes Abs Auto 0.03 10^3/uL (0.00-0.03); Immature Granulocytes Pct Auto 0.4 % (0.0-0.5); Lymphocytes Absolute Auto 0.5 10^3/uL (1.2-3.8); Lymphocytes Percent Auto 6.3 % (20.5-60.0); Mean Corpuscular HGB Conc 30.9 g/dL (29.9-35.2); Mean Corpuscular Hemoglobin 29.7 pg (25.9-34.0); Mean Platelet Volume 8.6 fL (9.5-13.5); Monocytes Absolute Auto 0.8 10^3/uL (0.3-0.8); Monocytes Percent Auto 10.3 % (1.7-12.0); Neutrophils Absolute Auto 6.6 10^3/uL (1.4-6.5); Neutrophils Percent Auto 82.8 % (43.0-75.0); Platelet Count 167 10^3/uL (150-450); Red Blood Count 3.47 10^6/uL (4.70-6.10); Red Cell Distribution Width 15.1 % (11.0-15.0)
--- NOTE | 2024-05-07 06:00 | CT_ITS ---
[place] [id number] Patient Name: ROXANN DELAROSA MRN: [id number] date: 1950 Sex: M Assigned Patient Location: [place] Current Patient Location: Accession/Order Number: [id number] Exam Date: 05/07/2024 09:28 Report Date: 05/07/2024 10:45 At the request of: ELOISE PAGE Procedure: CT chest w con EXAMINATION: CT chest w con HISTORY: Suspect lung mets COMPARISON: CT abdomen and pelvis 05/06/2024. Chest x-ray 05/06/2024 TECHNIQUE: Multi-planar CT images were created with IV contrast. Axial, Coronal, and Sagittal images. Dose reduction techniques were achieved by using automated exposure control and/or adjustment of mA and/or kV according to patient size and/or use of iterative reconstruction technique. FINDINGS: LUNGS: Calcified tracheobronchial tree numerous scattered solid pulmonary nodules. Which have calcifications at the majority are noncalcified. The largest in the right lung is in the right lower lobe measuring 10.4 mm axial image #51. The largest in the left lung is in the superior segment of the left lower lobe measuring 10.2 mm, axial image 35. Partial consolidation of the right lower lobe with presence of air bronchograms PLEURA: Calcified bilateral pleural proximal suggests prior asbestos exposure VASCULATURE: Normal postcontrast opacification of the central pulmonary arterial tree RADHA: No mass or adenopathy. MEDIASTINUM: No mass or adenopathy. CARDIAC: No enlargement or pericardial effusion Coronary arteries: Severe calcifications AORTA: No aortic aneurysm or dissection. Calcific atherosclerosis CHEST WALL: No mass or axillary adenopathy. BONES: No bone lesion or fracture. LIMITED ABDOMEN: Innumerable hepatic hypodense masses OTHER: Negative. CT/CT chest w con IMPRESSION: Numerous bilateral solid pulmonary nodules measuring up to 10.4 mm. Metastatic disease is favored Electronically authenticated by: LUCRECIA DRAKE Date: 05/07/2024 10:45
[2024-05-07] MEDS: LEVOTHYROXINE SODIUM 75 MCG TABLET PO (06:12)
[2024-05-07 06:23] LABS: Alanine Aminotransferase 43 U/L (16-63); Albumin Globulin Ratio 0.5; Albumin Level 2.5 g/dL (3.4-5.0); Alkaline Phosphatase 172 U/L (46-116); Anion Gap 12.5; Aspartate Amino Transferase 66 U/L (15-37); BUN Creatinine Ratio 9.1; Bilirubin Total 0.8 mg/dL (0.2-1.0); Calcium 8.7 mg/dL (8.5-10.1); Carbon Dioxide 27.9 mmol/L (21.0-32.0); Chloride 98 mmol/L (98-107); Estimated GFR (African America >60 (>=60); Estimated GFR (Non-African Ame >60 (>=60); Globulin 5.1 g/dL; Glucose 176 mg/dL (74-106); Potassium 3.4 mmol/L (3.5-5.1); Sodium 135 mmol/L (136-145); Total Protein 7.6 g/dL (6.4-8.2)
[2024-05-07 06:28] LABS: TSH W/ REFLEX FT4 1.085 uIU/mL (0.358-3.740)
--- NOTE | 2024-05-07 09:25 | OT.DAILY ---
Occupational Therapy Daily Note OT Inpatient Daily Visit Note Start: 05/06/24 10:49 Freq: Status: Active Protocol: Document 05/07/24 08:48 [id number] (Rec: 05/07/24 08:58 [id number]) OT Visit Details Time In/Time Out Time In 08:35 Time Out 08:46 OT Treatment Plan Subjective Subjective I am feeling okay Objective Objective Pt states that he is feeling weak and slightly SOB. Pt denies pain. Remains on 2L NC. Pt agreeable to move to EOB, Mod A for transfer. Pt able to maintain balance and SHIRA while seated on EOB. Requires cues to maintain posture and educated on deep breathing. Able to maintain sitting time for 2x min before dizziness. Pt noted that he wanted to lay down and was short of breath. Pt would occasionally would not respond to questions, when question was repeated he would answer. Denies nausea. Demonstrates persistent coughing and phlegm. Pt left in bed with call light within reach. Provided with wet washcloth Pt able to wash and dry face. When prompted to wet nose due to dry skin and followed instructions. 1-3 verbal cues to complete task with accuracy. Pt left in bed, call light within reach. Continue OT POC. Assessment Assessment Pt agreeable and copoerative wit all tasks. Followed directions with prompting and motivation. OT Billing Total Treatment Time Total treatment minutes 11 Nursing Department Chairperson Timed Codes Self-Usp Management minutes ( 11 minutes) Self-Usp Management units 1
--- NOTE | 2024-05-07 11:02 | PT.DAILY ---
Physical Therapy Daily Note PT Daily Note/Assess Start: 05/07/24 10:54 Freq: Status: Active Protocol: Document 05/07/24 10:55 [email or web address] (Rec: 05/07/24 11:02 HEATH [id number]) Physical Therapy Daily Note/Assessment Time In/Time Out Time In 10:06 Time Out 10:25 Pain In Pain N/A Pain Out Pain N/A Subjective Subjective Pt sitting in BS chair upon arrival. Agrees to PT. Therapeutic Exercise Time Therapeutic Exercise Minutes (minutes) 7 Therapeutic Exercise Units 0 Therapeutic Exercise Treatment Therapeutic Exercise Treatment Seated bilat LE strengthening ex complete 10x prior to gait/ transfers. Therapeutic Activity Time Therapeutic Activity Minutes (minutes) 8 Therapeutic Activity Units 1 Therapeutic Activity Treatment Chair Transfer Ability Minimum Assist,2 Person Assist Therapeutic Activity Comments Sit>stand Florentin+2. Static standing at RW for 5 min while brief is changed, floor is cleaned from urinating while standing, and tucks pad is changed. Pt takes seated rest break. Sit>stand again Florentin+2 to RW and amb 26' with RW CGA+ 2. Returned to BS chair upon completion with call light in reach and needs met. Straws were removed from his tray as he is on restrictions per speech - cardiac care unit nurse notified of this. Total Physical Therapy Time Total Therapy Minutes 15 Total Physical Therapy Units 1 Summary Daily Note Summary Good standing tolerance and balance during brief change/ clean up - no LOB.
[2024-05-07] MEDS: BUDESONIDE 0.5 MG/2 ML AMPULE NEB IH ×2 (11:32→20:26)
[2024-05-07] MEDS: AZITHROMYCIN 500 MG in 0.9 % SODIUM CHLORIDE 250 ML 250 MG IV (11:44)
[2024-05-07] MEDS: LACTOSE -REDUCED (ENSURE ORIGINAL 237 ML LIQUID) PO ×2 (11:44→21:42)
[2024-05-07] MEDS: ENOXAPARIN SODIUM 40 MG/0.4 ML SYRINGE SUBQ (11:44)
[2024-05-07] MEDS: GUAIFENESIN 600 MG TAB.ER.12H PO ×2 (11:44→21:42)
--- NOTE | 2024-05-07 12:03 | SWNOTE1 ---
SW did review therapy notes and SNF is being recommended. Depending on pt's clinical course, will speak with family/patient about discharge planning today.
--- NOTE | 2024-05-07 12:04 | CM.NOTE ---
Rounds made with Dr. Nelson. Dr. Nelson discussed plan of care with Mr. Rm. No discharge today.
--- NOTE | 2024-05-07 12:33 | P.PN_ITS ---
<Statement entered by Demetrius Nelson MD - 05/07/24 18:35> Patient seen and examined, agree with assessment and plan below. SOB stable and mild cough. Continued pain in LLQ. Seen by surgeon and plan endoscopy later in week. Oncology consulted. Continue antibiotics. Diagnosis: 1. Pneumonia 2. Colon mass 3. History of tongue cancer 4. DM2 5. HTN 6. PVD Progress Note: Subjective Subjective Interval history: 05/07/24 1030 The patient is sitting up in a bedside chair at the time of my exam. He continues to note right upper quadrant tenderness and mild shortness of breath along with a productive cough. He was seen in consult by Dr. Salas yesterday and a colonoscopy and endoscopy are planned later this week once the patient's medical situation has been optimized. His home aspirin has been held pending these evaluations as a biopsy of his colon masses planned. The patient has a flat affect but denies any questions or concerns at this time. He will also be seen in consult by Dr Harper, oncologist, later today. The pt was seen in consult by [employer] services yesterday. Dysphagia was noted during evaluation and the pt has been placed on a pureed diet/nectar thickened liquid diet Exam Constitutional Vital Signs, click to edit/add: Last Vital Signs Temp 97.4 F L 05/07/24 12:01 Pulse 88 05/07/24 12:01 Resp 18 05/07/24 12:01 BP 104/68 05/07/24 12:01 Pulse Ox 92 L 05/07/24 12:01 O2 Del Method Room Air 05/07/24 12:01 O2 Flow Rate 2 05/07/24 11:34 Common normals: no apparent distress, oriented x3 and alert General appearance: cooperative Orientation/consciousness: Yes awake HENNE Common normals: normocephalic, head/scalp atraumatic and hearing grossly normal bilaterally Eye Common normals: PERRL, EOMs intact bilaterally, conjunctivae normal and no scleral icterus General eye: normal appearance of both eyes Chest Common normals: inspection of chest normal Chest: symmetrical chest wall rise Respiratory Common normals: normal respiratory effort and no use of accessory muscles Effort & inspection: able to speak in complete sentences Auscultation: rales (Fine, BLL, L>R) and diminished lung sounds (RLL) Cardio Common normals: regular rate, regular rhythm, S1 normal heart sound, S2 normal heart sound, no murmurs and peripheral pulses 2+ throughout GI Common normals: Normal to inspection, nondistended, normoactive bowel sounds present, soft to palpation, non-tender and no hepatosplenomegaly Bladder/kidney exam: bladder normal to palpation Extremity Common normals: normal to inspection and no calf tenderness General: no clubbing and no cyanosis Neuro Common normals: CN's II-XII intact bilaterally, moves all extremities, no focal motor deficits and no sensory deficits noted Psych Common normals: mental status grossly normal Mood and affect: flat affect Memory/cognition: memory grossly intact Progress Note: Objective Labs Labs: Short CBC 05/07/24 Range/Units 05:42 WBC 8.0 (4.0-11.0) 10^3/uL Hgb 10.3 L (14.0-18.0) g/dL Hct 33.3 L (42.0-54.0) % Plt Count 167 (150-450) 10^3/uL BMP 05/07/24 05:42 Sodium 135 L Potassium 3.4 L Chloride 98 Carbon Dioxide 27.9 BUN 9.0 Creatinine 0.99 Glucose 176 H Calcium 8.7 Liver Function 05/07/24 Range/Units 05:42 Total Bilirubin 0.8 (0.2-1.0) mg/dL AST 66 H (15-37) U/L ALT 43 (16-63) U/L Alkaline Phosphatase 172 H (46-116) U/L Albumin 2.5 L (3.4-5.0) g/dL Progress Note: A&P Assessment and Plan (1) Mass of colon: Assessment and Plan: Acute * New finding of colon mass with suspected metastatic disease to the adjacent lymph tissue, liver and chest. * A review of historical records notes a colonoscopy in Dec 2021 only noting diverticulosis without evidence of a mass * c/s General surgery - we appreciate Dr Salas' assistance with this pt's care * Endoscopy (melena)/Colonoscopy (mass biopsy) planned for later this week * Hold ASA pending biopsy * CEA ordered - result pending * Oncology consult today * We appreciate Dr Harper's assistance with this pt's care while inpatient * The pt follows outpatient with Dr Figueroa, Oncology in [place], after a previous dx of tongue CA in 2013. (2) Pneumonia: Assessment and Plan: Acute * Mild SOB persists * Nursing applied O2 supplementation overnight, but no documentation of hypoxia * Nursing to wean off if able * D/C IVPB Rocephin and azithromycin for CAP coverage * Start IVPB Zosyn for suspected aspiration PNA coverage in setting of dysphagia and RLL consolidation * CT chest w/ contrast pending today - r/o metastatic disease in the lungs/chest. * XR findings may reflect post obstructive infiltrate or simply presence of metastatic lesions rather than true infectious infiltrate (3) Anemia: Assessment and Plan: Chronic * Stable at baseline around 09-06 * Suspect 2/2 possible GIB w/ reports of melena per pt to Dr Salas (4) Melena: Assessment and Plan: Chronic * Pt reported melena to Dr Salas * Endoscopy planned later this week to assess for possible sources of bleeding * Check for FOB (5) Metastatic cancer to liver: Assessment and Plan: Acute * Suspected - multiple non-calcified lesions suspicious for metastatic disease noted on CT abdomen imaging * Defer to outpatient oncology management after discharge (6) Transaminitis: Assessment and Plan: Acute * Improving * Suspect 2/2 liver metastatic disease * CMP daily to monitor * Ammonia level WNL * Continue to hold home statin for now d/t possible hepatic toxicity (7) Severe protein-calorie malnutrition: Assessment and Plan: Acute * Weight loss of at least 10 lbs in recent weeks * Suspect 2/2 colon CA w/ widely metastatic disease * Manager Wound consult * Ensure BID pending recommendations (8) Dysphagia: Assessment and Plan: Acute on Chronic * JANE glez on 09/05 - Dysphagia noted * Pureed diet w/ nectar thickened liquids (9) PVD (peripheral vascular disease): Assessment and Plan: Chronic * Hold home aspirin pending colonoscopy and tissue biopsy (10) History of tongue cancer: Assessment and Plan: Chronic * S/p partial resection in 2013 * Follows w/ Dr Figueroa at cancer center in [place] (11) Hypothyroidism: Assessment and Plan: Chronic * Continue home levothyroxine * TSH WNL (12) Hyperlipidemia: Assessment and Plan: Chronic * Hold home statin for now in setting of transaminitis (13) Asthma: Assessment and Plan: Chronic * Continue home Trelegy or pharmacy substitution per formulary
--- NOTE | 2024-05-07 12:33 | PM.PN ---
Progress Note: Subjective Subjective Interval history: 05/07/24 1030 The patient is sitting up in a bedside chair at the time of my exam. He continues to note right upper quadrant tenderness and mild shortness of breath along with a productive cough. He was seen in consult by Dr. Salas yesterday and a colonoscopy and endoscopy are planned later this week once the patient's medical situation has been optimized. His home aspirin has been held pending these evaluations as a biopsy of his colon masses planned. The patient has a flat affect but denies any questions or concerns at this time. He will also be seen in consult by Dr Harper, oncologist, later today. The pt was seen in consult by [employer] services yesterday. Dysphagia was noted during evaluation and the pt has been placed on a pureed diet/nectar thickened liquid diet Exam Constitutional Vital Signs, click to edit/add: Last Vital Signs Temp 97.4 F L 05/07/24 12:01 Pulse 88 05/07/24 12:01 Resp 18 05/07/24 12:01 BP 104/68 05/07/24 12:01 Pulse Ox 92 L 05/07/24 12:01 O2 Del Method Room Air 05/07/24 12:01 O2 Flow Rate 2 05/07/24 11:34 Common normals: no apparent distress, oriented x3 and alert General appearance: cooperative Orientation/consciousness: Yes awake HENPA Common normals: normocephalic, head/scalp atraumatic and hearing grossly normal bilaterally Eye Common normals: PERRL, EOMs intact bilaterally, conjunctivae normal and no scleral icterus General eye: normal appearance of both eyes Chest Common normals: inspection of chest normal Chest: symmetrical chest wall rise Respiratory Common normals: normal respiratory effort and no use of accessory muscles Effort & inspection: able to speak in complete sentences Auscultation: rales (Fine, BLL, L>R) and diminished lung sounds (RLL) Cardio Common normals: regular rate, regular rhythm, S1 normal heart sound, S2 normal heart sound, no murmurs and peripheral pulses 2+ throughout GI Common normals: Normal to inspection, nondistended, normoactive bowel sounds present, soft to palpation, non-tender and no hepatosplenomegaly Bladder/kidney exam: bladder normal to palpation Extremity Common normals: normal to inspection and no calf tenderness General: no clubbing and no cyanosis Neuro Common normals: CN's II-XII intact bilaterally, moves all extremities, no focal motor deficits and no sensory deficits noted Psych Common normals: mental status grossly normal Mood and affect: flat affect Memory/cognition: memory grossly intact Progress Note: Objective Labs Labs: Short CBC 05/07/24 Range/Units 05:42 WBC 8.0 (4.0-11.0) 10^3/uL Hgb 10.3 L (14.0-18.0) g/dL Hct 33.3 L (42.0-54.0) % Plt Count 167 (150-450) 10^3/uL BMP 05/07/24 05:42 Sodium 135 L Potassium 3.4 L Chloride 98 Carbon Dioxide 27.9 BUN 9.0 Creatinine 0.99 Glucose 176 H Calcium 8.7 Liver Function 05/07/24 Range/Units 05:42 Total Bilirubin 0.8 (0.2-1.0) mg/dL AST 66 H (15-37) U/L ALT 43 (16-63) U/L Alkaline Phosphatase 172 H (46-116) U/L Albumin 2.5 L (3.4-5.0) g/dL Progress Note: A&P Assessment and Plan (1) Mass of colon: Assessment and Plan: Acute New finding of colon mass with suspected metastatic disease to the adjacent lymph tissue, liver and chest. A review of historical records notes a colonoscopy in Dec 2021 only noting diverticulosis without evidence of a mass c/s General surgery - we appreciate Dr Salas' assistance with this pt's care Endoscopy (melena)/Colonoscopy (mass biopsy) planned for later this week Hold ASA pending biopsy CEA ordered - result pending Oncology consult today We appreciate Dr Harper's assistance with this pt's care while inpatient The pt follows outpatient with Dr Figueroa, Oncology in [place], after a previous dx of tongue CA in 2012. (2) Pneumonia: Assessment and Plan: Acute Mild SOB persists Nursing applied O2 supplementation overnight, but no documentation of hypoxia Nursing to wean off if able D/C IVPB Rocephin and azithromycin for CAP coverage Start IVPB Zosyn for suspected aspiration PNA coverage in setting of dysphagia and RLL consolidation CT chest w/ contrast pending today - r/o metastatic disease in the lungs/chest. XR findings may reflect post obstructive infiltrate or simply presence of metastatic lesions rather than true infectious infiltrate (3) Anemia: Assessment and Plan: Chronic Stable at baseline around 09-06 Suspect 2/2 possible GIB w/ reports of melena per pt to Dr Salas (4) Melena: Assessment and Plan: Chronic Pt reported melena to Dr Salas Endoscopy planned later this week to assess for possible sources of bleeding Check for FOB (5) Metastatic cancer to liver: Assessment and Plan: Acute Suspected - multiple non-calcified lesions suspicious for metastatic disease noted on CT abdomen imaging Defer to outpatient oncology management after discharge (6) Transaminitis: Assessment and Plan: Acute Improving Suspect 2/2 liver metastatic disease CMP daily to monitor Ammonia level WNL Continue to hold home statin for now d/t possible hepatic toxicity (7) Severe protein-calorie malnutrition: Assessment and Plan: Acute Weight loss of at least 10 lbs in recent weeks Suspect 2/2 colon CA w/ widely metastatic disease P[employer] Installer consult Ensure BID pending recommendations (8) Dysphagia: Assessment and Plan: Acute on Chronic [employer] eval on 09/05 - Dysphagia noted Pureed diet w/ nectar thickened liquids (9) PVD (peripheral vascular disease): Assessment and Plan: Chronic Hold home aspirin pending colonoscopy and tissue biopsy (10) History of tongue cancer: Assessment and Plan: Chronic S/p partial resection in 2013 Follows w/ Dr Figueroa at cancer center in [place] (11) Hypothyroidism: Assessment and Plan: Chronic Continue home levothyroxine TSH WNL (12) Hyperlipidemia: Assessment and Plan: Chronic Hold home statin for now in setting of transaminitis (13) Asthma: Assessment and Plan: Chronic Continue home Trelegy or pharmacy substitution per formulary
--- NOTE | 2024-05-07 12:42 | SWNOTE1 ---
SW met with pt to discuss dc needs. Pt was sleeping in the chair. Pt knew he was at hospital and the month. Pt lives at home with . He voiced he does not use a walker or cane at home. SW did present the idea of pt possibly needing SNF at discharge for strengthening. Pt does admit he does feel weaker at this time. Pt is open to possibility of SNF if needed, wants to talk to his . He thinks she is coming in later, SW to check back later. Important Message from Medicare reviewed and discussed with patient. Pt. verbalized understanding and signed the form. Original given to patient and copy placed in patient?s chart.
[2024-05-07 13:25] LABS: Lactate Dehydrogenase 643 U/L (85-227); Uric Acid 3.9 mg/dL (3.5-7.2)
[2024-05-07] MEDS: CEFTRIAXONE 1,000 MG in 0.9 % SODIUM CHLORIDE 50 ML 100 MG IV (13:36)
--- NOTE | 2024-05-07 15:19 | SWNOTE1 ---
SW met with pt's in room and discussed dc plans. In the home is pt's and her son who is 16. Pt did voice he has been very weak and she is not sure how she can care for him at home. SW did discuss pt going to rehab at a nursing facility. Pt and in agreement. Pt is going to use restroom. SW explained to that we are still waiting on medical updates as well to help determine discharge plans. SW did explain that if pt does want to pursue treatment (chemo/radiation) that it will affect his options of going to facilities. She did voice understanding. SW did review list from medicare.gov. Pt's voiced they live in [place] and they live close [facility]. As of now this is where they would want him to go. SW asked permission to send referral. Pt's in agreement. Referral sent to [facility]. Referral included face sheet, ED note, H&P, provider notes, case management report, wound consult, nursing notes, diagnostic imaging, med list, and PT/OT notes.
[2024-05-07] MEDS: ONDANSETRON PF 4 MG/2 ML VIAL IV (16:51)
[2024-05-07] MEDS: PIPERACILLIN SODIUM/TAZOBACTAM 3.375 GM in 0.9 % SODIUM CHLORIDE 50 ML IV (16:51)
--- NOTE | 2024-05-07 18:02 | P.CN_ITS ---
Consult Note: HPI Data of Consult Consult date: 05/07/24 Requesting Physician: Demetrius Nelson MD Primary Care Provider: NEO SINGH Consult Narrative Reason for consult: colon mass, probable liver / lung mets Narrative: HPI H&P: HPI History of Present Illness Chief complaint: PNEUMONIA Narrative: 05/07/24 1600 PM This is a 74-year-old male patient who presented to the ED complaining of abdominal pain and frequent urination. The patient is a poor historian cannot give a clear course of events leading to his arrival in the ED. He reports his right lower quadrant pain is somewhat acute and he thinks present for less than 1 week. He also notes chronic constipation and recent weight loss of ap proximately 10 pounds. He presented to the ED for further evaluation. Workup in the ED revealed hypertension (154/97) and mild tachycardia (95-115). A CT of the abdomen revealed colonic mass along the mid ascending colon, highly suspicious for malignancy. There are also lymph nodes adjacent to this region, hypodense lesions of the liver, and noncalcified nodules of the lower chest bilaterally which are all suspicious for metastatic disease. In addition chest x-ray revealed mild to moderate bibasilar infiltrates suspicious for pneumonia. The patient is being admitted to the hospitalist service as an inpatient for bilateral pneumonia and new finding of a colonic mass requiring further workup and general surgery specialty care. We are consulted to guide next steps in work-up and treatment. At the time of my exam the patient is resting quietly in bed. He has a flat affect and difficulty giving details of his recent medical course. He was noticeably concerned about the finding of a colonic mass with possible metastatic disease. He has been seen by Dr. Salas, general surgeon, and hopefully we can at least have a biopsy performed to definitively assess for malignancy. The pt has a frequent loose cough, but remains afebrile at this time. He reports feeling mildly SOB, especially with activity. A liver panel was added d/t the finding of liver lesions and transaminitis was noted. I reviewed pt's CT scan and blood work with pt and at the bedside today. I reviewed the very high CEA, and the high suspicion of stage IV colon cancer, with lung and liver mets. I informed him that if colon cancer is confirmed with biopsy, it would not be curable. He does appear to be performing his ADLs, and I informed him that we could try palliative chemotherapy with 5-FU q2 weeks, from our [place] office, if he was interested in treatment. He wishes to be aggressive in his care. He does wish to pursue biopsy and possible treatment. I reviewed options for DNR / DNI, and at the moment, he wishes to remain full code. Of note, he does have a prior / remote hx of tongue cancer. It appears to be in remission. He would prefer to follow-up with us at [place], given geographic proximity, for colon cancer treatment if needed. We also did ask about any prior colonoscopy. He believes it has been 'quite some time' since his last colonoscopy, but cannot recall. ECOG PS 3. cc:: CC: Demetrius eNlson MD Review of Systems ROS Narrative A comprehensive 12 point review of systems was obtained and is negative other than that reported in the history of present illness. [facility] Medical History (Updated 05/07/24 @ 12:58 by Manuela Lamb NP) Asthma ?J45.909 - Unspecified asthma, uncomplicated (ICD-10) Hyperlipidemia ?E78.5 - Hyperlipidemia, unspecified (ICD-10) Hypothyroidism ?E03.9 - Hypothyroidism, unspecified (ICD-10) History of tongue cancer ?Z85.810 - Personal history of malignant neoplasm of tongue (ICD-10) Type 2 diabetes mellitus with hyperglycemia ?E11.65 - Type 2 diabetes mellitus with hyperglycemia (ICD-10) PVD (peripheral vascular disease) ?I73.9 - Peripheral vascular disease, unspecified (ICD-10) Benign essential hypertension ?I10 - Essential (primary) hypertension (ICD-10) Intraparenchymal hemorrhage of brain ?I61.9 - Nontraumatic intracerebral hemorrhage, unspecified (ICD-10) Social History Smoking status: Never smoker Highest level of school completed/degree received: decline to answer Do you think of yourself as: straight/heterosexual Gender Identity: male Meds Home Medications and Allergies Home Medications ?Medication ?Instructions ?Recorded ?Confirmed ?Type aspirin 81 mg chewable tablet 1 tab PO .qd 05/06/24 05/06/24 History atorvastatin 40 mg tablet 40 mg PO .qd 05/06/24 05/06/24 History fluticasone fur. 100 mcg-umeclid 1 inh inhalation Q24H 05/06/24 05/06/24 History 62.5 mcg-vilant 25 mcg inhalat.powder (Trelegy Ellipta) levothyroxine 75 mcg tablet 75 mcg PO .qd 05/06/24 05/06/24 History Allergies Allergy/AdvReac Type Severity Reaction Status Date / Time latex Allergy Intermediate Verified 05/06/24 04:12 Exam Narrative Exam Narrative: Common normals: no apparent distress, oriented x3 and alert General appearance: cooperative and frail appearing Nutritional appearance: underweight Orientation/consciousness: Yes awake HENMT Common normals: normocephalic, head/scalp atraumatic, hearing grossly normal bilaterally, external nose normal and moist oral mucous membranes Eye Common normals: PERRL, EOMs intact bilaterally, conjunctivae normal and no scleral icterus Alignment: alignment normal Eyelid: eyelids normal Neck & C-Spine Common normals: full ROM, supple and no JVD Chest Common normals: inspection of chest normal Chest: symmetrical chest wall rise Respiratory Common normals: normal respiratory effort, no retractions and no use of accessory muscles Auscultation: rhonchi (LLL) and wheezes (Faint, EE RLL) Cardio Common normals: no JVD, regular rate, S1 normal heart sound, S2 normal heart sound, no gallops, no clicks, no murmurs, no rub and peripheral pulses 2+ throughout Rhythm: other (Mostly regular, but frequent ectopy noted) GI Common normals: Normal to inspection, nondistended, normoactive bowel sounds present, soft to palpation, no hepatosplenomegaly, no masses and no bruits Palpation: tender (RUQ); no guarding, not rigid and no rebound tenderness present Bladder/kidney exam: bladder normal to palpation Back & Pelvis Common normals: thoracic and lumbar spine normal to inspection Extremity Common normals: normal capillary refill and no pedal edema General: normal exam except as noted; no clubbing and no cyanosis Neuro [place] Coma Scale: GCS not evaluated Common normals: CN's II-XII intact bilaterally, moves all extremities, no focal motor deficits and no sensory deficits noted Speech: speech normal Motor exam: strength 5/5 throughout Psych Common normals: mental status grossly normal, thought process normal and activity/motor behavior normal Constitutional Vital Signs, click to edit/add: Last Vital Signs Temp 98.1 F 05/07/24 16:55 Pulse 86 05/07/24 17:52 Resp 18 05/07/24 16:55 BP 148/85 H 05/07/24 16:55 Pulse Ox 91 L 05/07/24 16:55 O2 Del Method Nasal Cannula 05/07/24 16:55 O2 Flow Rate 1 05/07/24 16:55 Results Labs Labs: Short CBC 05/07/24 Range/Units 05:42 WBC 8.0 (4.0-11.0) 10^3/uL Hgb 10.3 L (14.0-18.0) g/dL Hct 33.3 L (42.0-54.0) % Plt Count 167 (150-450) 10^3/uL BMP 05/07/24 05:42 Sodium 135 L Potassium 3.4 L Chloride 98 Carbon Dioxide 27.9 BUN 9.0 Creatinine 0.99 Glucose 176 H Calcium 8.7 Liver Function 05/07/24 Range/Units 05:42 Total Bilirubin 0.8 (0.2-1.0) mg/dL AST 66 H (15-37) U/L ALT 43 (16-63) U/L Alkaline Phosphatase 172 H (46-116) U/L Albumin 2.5 L (3.4-5.0) g/dL Additional Findings Additional findings: 05/06/2024 CT/CT abdomen pelvis w con IMPRESSION: There is a mass along the mid ascending colon measuring 3.4 x 2.3 x 2.4 cm in longitudinal, transverse and AP dimensions which is highly suspicious for a malignancy. There are mild stranding densities within the pericolonic fat adjacent to this which track inferiorly along the right colonic gutter. There are a few lymph nodes adjacent to this region measuring 1.3 x 1.1 cm and 1.0 x 0.6 cm suspicious for metastatic disease. There are several noncalcified nodules within the lower chest bilaterally measuring up to 1.9 cm on the right and 1.5 cm on the left, suspicious for metastatic disease. A CT examination of the chest is recommended. Dependent on the clinical management of the patient, this could be performed as a scheduled examination There are numerous hypodense lesions scattered throughout the liver ranging in size from 0.4 cm to 4.1 cm, highly suspicious for metastatic disease. There is consolidation suggesting atelectasis and/or infiltrate within both lower lobes. The bowel gas pattern is nonobstructive with a large amount of stool within the colon. There are diverticula along the distal ascending and sigmoid colon without diverticulitis. The appendix is prominent measuring 0.9 cm in transverse dimension however there is no significant periappendiceal inflammatory reaction. There is circumferential thickening of the esophageal wall which can be associated with an esophagitis or sequelae of chronic gastroesophageal reflux. There is mild circumferential thickening of the urinary bladder wall and moderate enlargement of the prostate gland. Electronically authenticated by: BERYL MEADE Date: 05/06/2024 06:45 Assessment and Plan Assessment and Plan (1) Mass of colon: (2) Pneumonia: (3) Anemia: (4) Melena: (5) Metastatic cancer to liver: (6) Transaminitis: (7) Severe protein-calorie malnutrition: (8) Dysphagia: (9) PVD (peripheral vascular disease): (10) History of tongue cancer: (11) Hypothyroidism: (12) Hyperlipidemia: (13) Asthma: Plan Impression: # Colon mass # Liver lesions suspicious for metastatic disease # Lung mass suspicious for metastatic disease # Markedly elevated CEA # Pneumonia # Hx of tongue cancer, felt to be in remission # Anemia PLAN: - today, i had an extensive conversation with pt and at the bedside. - i discussed probable dx of stage IV colon cancer with liver and lung mets - he wishes to remain aggressive with pursuing diagnosis and possible treatment. I informed him that surgery would likely not be an option for treatment given probable stage IV disease - he notes that he wishes to pursue biopsies with surgery, Dr Salas - I informed him that if colon cancer is confirmed with biopsy, treatment would be palliative in nature. - He does appear to be performing his ADLs, and I informed him that we could try palliative chemotherapy with 5-FU q2 weeks, from our [place] office, if he was interested in treatment. - He does wish to pursue biopsy and possible treatment. I reviewed options for DNR / DNI, and at the moment, he wishes to remain full code. - I would recommend he f/u with us on 05/14 or 05/21, after colonoscopy and biopsies to discuss diagnosis and treatment options. I would recommend NGS to evaluate for MSI-high and TMB status, to see if he could be a candidate for immunotherapy. Otherwise, standard of care would be palliative 5-FU infusion q2 weeks. - Of note, he does have a prior / remote hx of tongue cancer. It appears to be in remission. - He would prefer to follow-up with us at [place], given geographic proximity, for colon cancer treatment if needed. We would be happy to see him in our [place] cancer care and infusion services. We will also facilitate palliative care with [facility] on discharge for supportive care needs. Sharon Harper MD Hematology Oncology
[2024-05-08] VITALS (21 sets, daily range): BP systolic 122–137; BP diastolic 71–85; PULSE 75–95; TEMP 36.4–37; O2SAT 88–95
[2024-05-08] MEDS: PIPERACILLIN SODIUM/TAZOBACTAM 3.375 GM in 0.9 % SODIUM CHLORIDE 50 ML IV ×3 (01:42→16:27)
[2024-05-08] MEDS: 0.9 % SODIUM CHLORIDE 1,000 ML 100 ML IV ×2 (01:42→11:45)
[2024-05-08] MEDS: ALBUTEROL SULFATE 2.5 MG/3 ML VIAL NEB IH ×4 (04:07→20:40)
[2024-05-08 05:17] LABS: Eosinophils Absolute Auto 0.1 10^3/uL (0.0-0.7); Eosinophils Percent Auto 1.5 % (0.9-7.0); Hematocrit 28.4 % (42.0-54.0); Hemoglobin 8.7 g/dL (14.0-18.0); Immature Granulocytes Abs Auto 0.02 10^3/uL (0.00-0.03); Immature Granulocytes Pct Auto 0.4 % (0.0-0.5); Lymphocytes Percent Auto 18.7 % (20.5-60.0); Mean Corpuscular HGB Conc 30.6 g/dL (29.9-35.2); Mean Corpuscular Hemoglobin 29.2 pg (25.9-34.0); Mean Corpuscular Volume 95.3 fL (80.0-94.0); Mean Platelet Volume 9.1 fL (9.5-13.5); Monocytes Absolute Auto 0.6 10^3/uL (0.3-0.8); Monocytes Percent Auto 11.2 % (1.7-12.0); Neutrophils Absolute Auto 3.5 10^3/uL (1.4-6.5); Neutrophils Percent Auto 68.2 % (43.0-75.0); Platelet Count 154 10^3/uL (150-450); Red Blood Count 2.98 10^6/uL (4.70-6.10); White Blood Count 5.2 10^3/uL (4.0-11.0)
[2024-05-08 05:35] LABS: Alanine Aminotransferase 41 U/L (16-63); Albumin Globulin Ratio 0.5; Albumin Level 2.1 g/dL (3.4-5.0); Alkaline Phosphatase 157 U/L (46-116); Anion Gap 9.6; Aspartate Amino Transferase 51 U/L (15-37); BUN Creatinine Ratio 9.7; Bilirubin Total 0.5 mg/dL (0.2-1.0); Calcium 8.2 mg/dL (8.5-10.1); Carbon Dioxide 26.9 mmol/L (21.0-32.0); Chloride 103 mmol/L (98-107); Estimated GFR (African America >60 (>=60); Estimated GFR (Non-African Ame >60 (>=60); Globulin 4.3 g/dL; Glucose 148 mg/dL (74-106); Potassium 3.5 mmol/L (3.5-5.1); Sodium 136 mmol/L (136-145); Total Protein 6.4 g/dL (6.4-8.2)
[2024-05-08] MEDS: LEVOTHYROXINE SODIUM 75 MCG TABLET PO (06:03)
[2024-05-08] MEDS: ENOXAPARIN SODIUM 40 MG/0.4 ML SYRINGE SUBQ (09:36)
[2024-05-08] MEDS: GUAIFENESIN 600 MG TAB.ER.12H PO ×2 (09:36→22:04)
--- NOTE | 2024-05-08 10:44 | REH.PTDLY ---
Physical Therapy Daily Note PT Daily Note/Assess Start: 05/07/24 10:54 Freq: Status: Active Protocol: Document 05/08/24 10:37 KIRSTEN (Rec: 05/08/24 10:44 KIRSTEN [id number]) Physical Therapy Daily Note/Assessment Time In 09:57 Time Out 10:12 Subjective Pt in bed upon arrival, can't get tv to work. Agreeable to therapy. Therapeutic Exercise Minutes (minutes) 4 Therapeutic Exercise Units 0 Therapeutic Exercise Treatment Instructed in B LE seated exs in chair 10x ea as pt is unable to sit upright unsupported bedside to perform , leans to the R with constant cues needed. Therapeutic Activity Minutes (minutes) 10 Therapeutic Activity Units 1 Bed Mobility Ability Minimum Assist Chair Transfer Ability Minimum Assist Therapeutic Activity Comments Pt able to perform transfers with Min A today. Sit to stands performed from slightly elevated bed. Once standing pt tends to lean retro with cues to lean forward to maintain balance. Pt reports he needs to use restroom and asks for urinal. Had pt return to sit for this as he is unable to maintain balance without UE support. Pt then stands again and ambulates with RW to chair 4 feet CGA/ Min A. Total Therapy Minutes 14 Total Physical Therapy Units 1 Daily Note Summary Able to transfer with 1 assist today and maintain balance with Min A as pt leans retro with standing, improved ability to maneuver RW. Continues to lean to the R when sitting unsupported. Pt will need to go to rehab upon DC for strengthening for improved independence.
--- NOTE | 2024-05-08 10:55 | SWNOTE1 ---
[facility] reviewed the referral and they are able to accept. Pt is having scopes done tomorrow. Vaishali at [facility] will likely start precert later today.
[2024-05-08] MEDS: BUDESONIDE 0.5 MG/2 ML AMPULE NEB IH ×2 (11:17→20:40)
--- NOTE | 2024-05-08 11:54 | CM.NOTE ---
Rounds made with Dr. Nelson. Dr. Nelson explains plan of care with Mr. Rm and likely need for Rehab at discharge. Sujey verbalizes agreement and would like [facility] skilled.
--- NOTE | 2024-05-08 13:27 | P.PN_ITS ---
<Statement entered by Demetrius Nelson MD - 05/08/24 18:25> Patient seen and examine, agree with assessment and plan below. States SOB improved. Still mild abdominal pain. CT chest showed multiple lesions concerning for metastasis. Will start bowel prep for EGD and colonoscopy in am. Diagnosis: 1. Pneumonia 2. Colon mass 3. History of tongue cancer 4. DM2 5. HTN 6. PVD Progress Note: Subjective Subjective Interval history: 05/07/24 1030 The patient is sitting up in a bedside chair at the time of my exam. He continues to note right upper quadrant tenderness and mild shortness of breath along with a productive cough. He was seen in consult by Dr. Salas yesterday and a colonoscopy and endoscopy are planned later this week once the patient's medical situation has been optimized. His home aspirin has been held pending these evaluations as a biopsy of his colon masses planned. The patient has a flat affect but denies any questions or concerns at this time. He will also be seen in consult by Dr Harper, oncologist, later today. The pt was seen in consult by [employer] [facility] services yesterday. Dysphagia was noted during evaluation and the pt has been placed on a pureed diet/nectar thickened liquid diet Exam Constitutional Vital Signs, click to edit/add: Last Vital Signs Temp 97.6 F 05/08/24 04:37 Pulse 84 05/08/24 11:49 Resp 18 05/08/24 04:37 BP 128/73 05/08/24 04:37 Pulse Ox 93 L 05/08/24 12:25 O2 Del Method Nasal Cannula 05/08/24 12:25 O2 Flow Rate 1 05/08/24 12:25 Common normals: no apparent distress, oriented x3 and alert Nutritional appearance: underweight Orientation/consciousness: Yes awake [facility] Common normals: normocephalic, head/scalp atraumatic and hearing grossly normal bilaterally Nose: external nose normal Eye Common normals: PERRL, EOMs intact bilaterally, conjunctivae normal and no scleral icterus General eye: normal appearance of both eyes Chest Common normals: inspection of chest normal Chest: symmetrical chest wall rise Respiratory Common normals: normal respiratory effort and no use of accessory muscles Effort & inspection: able to speak in complete sentences Auscultation: rales (Fine, BLL, L>R) and diminished lung sounds (BLL, R>L) Cardio Common normals: no JVD, regular rate, regular rhythm, S1 normal heart sound, S2 normal heart sound, no gallops, no clicks, no murmurs, no rub and peripheral pulses 2+ throughout GI Common normals: Normal to inspection, nondistended, normoactive bowel sounds present, soft to palpation, non-tender, no hepatosplenomegaly, no masses and no bruits Palpation: no guarding Bladder/kidney exam: bladder normal to palpation Back & Pelvis Common normals: thoracic and lumbar spine normal to inspection Extremity Common normals: normal to inspection and no calf tenderness General: edema (1+ bilat insteps/ankles); no clubbing and no cyanosis Neuro [place] Coma Scale: GCS not evaluated Common normals: CN's II-XII intact bilaterally, moves all extremities, no focal motor deficits and no sensory deficits noted Psych Common normals: mental status grossly normal Mood and affect: flat affect Progress Note: Objective Labs Labs: Short CBC 05/08/24 Range/Units 04:49 WBC 5.2 (4.0-11.0) 10^3/uL Hgb 8.7 L (14.0-18.0) g/dL Hct 28.4 L (42.0-54.0) % Plt Count 154 (150-450) 10^3/uL BMP 05/08/24 04:49 Sodium 136 Potassium 3.5 Chloride 103 Carbon Dioxide 26.9 BUN 9.0 Creatinine 0.93 Glucose 148 H Calcium 8.2 L Liver Function 05/08/24 Range/Units 04:49 Total Bilirubin 0.5 (0.2-1.0) mg/dL AST 51 H (15-37) U/L ALT 41 (16-63) U/L Alkaline Phosphatase 157 H (46-116) U/L Albumin 2.1 L (3.4-5.0) g/dL Imaging CT scan - chest: Attestation: I have reviewed the pertinent imaging results. Radiologist's impression: IMPRESSION: Numerous bilateral solid pulmonary nodules measuring up to 10.4 mm. Metastatic disease is favored Progress Note: A&P Assessment and Plan (1) Mass of colon: Assessment and Plan: Acute * New finding of colon mass with suspected metastatic disease to the adjacent lymph tissue, liver and chest. * A review of historical records notes a colonoscopy in Dec 2021 only noting diverticulosis without evidence of a mass * c/s General surgery - we appreciate Dr Salas' assistance with this pt's care * Endoscopy (melena)/Colonoscopy (mass biopsy) planned for tomorrow. NPO after midnight. Colon prep per Dr Salas' orders. * Continue to hold ASA pending biopsy * CEA very elevated - 21,778 * Oncology consult 05/07/24 * We appreciate Dr Harper's assistance with this pt's care while inpatient * The pt wants to pursue diagnosis and treatment with Dr Harper after discharge. Please see Oncology consult note. * Strongly suspect Stage 4 colon CA primary w/ metastatic disease to lymph, liver, and lung - Goal is palliative management (2) Pneumonia: Assessment and Plan: Acute * SOB resolved * Pt still on minimal O2 supplementation at 1 Liter * Nursing to wean off if able * Continue IVPB Zosyn for suspected aspiration PNA coverage in setting of dysphagia and RLL consolidation (see CT Chest imaging) * CT chest w/ contrast 05/07/24 * Multiple bilat nodules suspicious for metastatic disease * RLL consolidation w/ air bronchograms noted * Suspect aspiration and/or post obstructive process (3) Anemia: Assessment and Plan: Chronic * Trending down today - 8.7 * baseline around 10-11 * No evidence of active bleeding so far * Asymptomatic * Likely d/t hemodilution. Decrease IVFs to 75ml/hr today * Suspect 2/2 possible chronic GIB w/ reports of melena per pt to Dr Salas * Consider PRBC transfusion for Hgb < 7 or if significantly symptomatic (4) Melena: Assessment and Plan: Chronic * Pt reported melena to Dr Salas * Endoscopy planned later this week to assess for possible sources of bleeding * Check for FOB (5) Metastatic cancer to liver: Assessment and Plan: Acute * Suspected - multiple non-calcified lesions suspicious for metastatic disease noted on CT abdomen imaging * Defer to outpatient oncology management after discharge (6) Transaminitis: Assessment and Plan: Acute * Continues improving * Suspect 2/2 liver metastatic disease * CMP daily to monitor * Ammonia level WNL * Continue to hold home statin for now d/t possible hepatic toxicity (7) Moderate protein-calorie malnutrition: Assessment and Plan: Acute * Weight loss of at least 10 lbs in recent weeks * Suspect 2/2 colon CA w/ widely metastatic disease * [employer] consult * Continue Ensure BID per recommendations (8) Dysphagia: Assessment and Plan: Acute on Chronic * [employer] [facility] [place] on 09/05 - Dysphagia noted w/ aspiration * Pureed diet w/ nectar thickened liquids (9) PVD (peripheral vascular disease): Assessment and Plan: Chronic * Hold home aspirin pending colonoscopy and tissue biopsy (10) History of tongue cancer: Assessment and Plan: Chronic * S/p partial resection in 2012 * Follows w/ Dr Figueroa at cancer center in [place] (11) Hypothyroidism: Assessment and Plan: Chronic * Continue home levothyroxine * TSH WNL (12) Hyperlipidemia: Assessment and Plan: Chronic * Hold home statin for now in setting of transaminitis (13) Asthma: Assessment and Plan: Chronic * Continue home Trelegy or pharmacy substitution per formulary
--- NOTE | 2024-05-08 13:27 | PM.PN ---
Progress Note: Subjective Subjective Interval history: 05/07/24 1030 The patient is sitting up in a bedside chair at the time of my exam. He continues to note right upper quadrant tenderness and mild shortness of breath along with a productive cough. He was seen in consult by Dr. Salas yesterday and a colonoscopy and endoscopy are planned later this week once the patient's medical situation has been optimized. His home aspirin has been held pending these evaluations as a biopsy of his colon masses planned. The patient has a flat affect but denies any questions or concerns at this time. He will also be seen in consult by Dr Harper, oncologist, later today. The pt was seen in consult by MUSIC ASSISTANT services yesterday. Dysphagia was noted during evaluation and the pt has been placed on a pureed diet/nectar thickened liquid diet Exam Constitutional Vital Signs, click to edit/add: Last Vital Signs Temp 97.6 F 05/08/24 04:37 Pulse 84 05/08/24 11:49 Resp 18 05/08/24 04:37 BP 128/73 05/08/24 04:37 Pulse Ox 93 L 05/08/24 12:25 O2 Del Method Nasal Cannula 05/08/24 12:25 O2 Flow Rate 1 05/08/24 12:25 Common normals: no apparent distress, oriented x3 and alert Nutritional appearance: underweight Orientation/consciousness: Yes awake [facility] Common normals: normocephalic, head/scalp atraumatic and hearing grossly normal bilaterally Nose: external nose normal Eye Common normals: PERRL, EOMs intact bilaterally, conjunctivae normal and no scleral icterus General eye: normal appearance of both eyes Chest Common normals: inspection of chest normal Chest: symmetrical chest wall rise Respiratory Common normals: normal respiratory effort and no use of accessory muscles Effort & inspection: able to speak in complete sentences Auscultation: rales (Fine, BLL, L>R) and diminished lung sounds (BLL, R>L) Cardio Common normals: no JVD, regular rate, regular rhythm, S1 normal heart sound, S2 normal heart sound, no gallops, no clicks, no murmurs, no rub and peripheral pulses 2+ throughout GI Common normals: Normal to inspection, nondistended, normoactive bowel sounds present, soft to palpation, non-tender, no hepatosplenomegaly, no masses and no bruits Palpation: no guarding Bladder/kidney exam: bladder normal to palpation Back & Pelvis Common normals: thoracic and lumbar spine normal to inspection Extremity Common normals: normal to inspection and no calf tenderness General: edema (1+ bilat insteps/ankles); no clubbing and no cyanosis Neuro [place] Coma Scale: GCS not evaluated Common normals: CN's II-XII intact bilaterally, moves all extremities, no focal motor deficits and no sensory deficits noted Psych Common normals: mental status grossly normal Mood and affect: flat affect Progress Note: Objective Labs Labs: Short CBC 05/08/24 Range/Units 04:49 WBC 5.2 (4.0-11.0) 10^3/uL Hgb 8.7 L (14.0-18.0) g/dL Hct 28.4 L (42.0-54.0) % Plt Count 154 (150-450) 10^3/uL BMP 05/08/24 04:49 Sodium 136 Potassium 3.5 Chloride 103 Carbon Dioxide 26.9 BUN 9.0 Creatinine 0.93 Glucose 148 H Calcium 8.2 L Liver Function 05/08/24 Range/Units 04:49 Total Bilirubin 0.5 (0.2-1.0) mg/dL AST 51 H (15-37) U/L ALT 41 (16-63) U/L Alkaline Phosphatase 157 H (46-116) U/L Albumin 2.1 L (3.4-5.0) g/dL Imaging CT scan - chest: Attestation: I have reviewed the pertinent imaging results. Radiologist's impression: IMPRESSION: Numerous bilateral solid pulmonary nodules measuring up to 10.4 mm. Metastatic disease is favored Progress Note: A&P Assessment and Plan (1) Mass of colon: Assessment and Plan: Acute New finding of colon mass with suspected metastatic disease to the adjacent lymph tissue, liver and chest. A review of historical records notes a colonoscopy in Dec 2021 only noting diverticulosis without evidence of a mass c/s General surgery - we appreciate Dr Salas' assistance with this pt's care Endoscopy (melena)/Colonoscopy (mass biopsy) planned for tomorrow. NPO after midnight. Colon prep per Dr Salas' orders. Continue to hold ASA pending biopsy CEA very elevated - 21,[id number] Oncology consult 05/07/[address] Harper's assistance with this pt's care while inpatient The pt wants to pursue diagnosis and treatment with Dr Harper after discharge. Please see Oncology consult note. Strongly suspect Stage 4 colon CA primary w/ metastatic disease to lymph, liver, and lung - Goal is palliative management (2) Pneumonia: Assessment and Plan: Acute SOB resolved Pt still on minimal O2 supplementation at 1 Liter Nursing to wean off if able Continue IVPB Zosyn for suspected aspiration PNA coverage in setting of dysphagia and RLL consolidation (see CT Chest imaging) CT chest w/ contrast 05/07/24 Multiple bilat nodules suspicious for metastatic disease RLL consolidation w/ air bronchograms noted Suspect aspiration and/or post obstructive process (3) Anemia: Assessment and Plan: Chronic Trending down today - 8.7 baseline around 09-06 No evidence of active bleeding so far Asymptomatic Likely d/t hemodilution. Decrease IVFs to 75ml/hr today Suspect 2/2 possible chronic GIB w/ reports of melena per pt to Dr Salas Consider PRBC transfusion for Hgb < 7 or if significantly symptomatic (4) Melena: Assessment and Plan: Chronic Pt reported melena to Dr Salas Endoscopy planned later this week to assess for possible sources of bleeding Check for FOB (5) Metastatic cancer to liver: Assessment and Plan: Acute Suspected - multiple non-calcified lesions suspicious for metastatic disease noted on CT abdomen imaging Defer to outpatient oncology management after discharge (6) Transaminitis: Assessment and Plan: Acute Continues improving Suspect 2/2 liver metastatic disease CMP daily to monitor Ammonia level WNL Continue to hold home statin for now d/t possible hepatic toxicity (7) Moderate protein-calorie malnutrition: Assessment and Plan: Acute Weight loss of at least 10 lbs in recent weeks Suspect 2/2 colon CA w/ widely metastatic disease [employer] consult Continue Ensure BID per recommendations (8) Dysphagia: Assessment and Plan: Acute on Chronic MUSIC ASSISTANT eval on 09/05 - Dysphagia noted w/ aspiration Pureed diet w/ nectar thickened liquids (9) PVD (peripheral vascular disease): Assessment and Plan: Chronic Hold home aspirin pending colonoscopy and tissue biopsy (10) History of tongue cancer: Assessment and Plan: Chronic S/p partial resection in 2013 Follows w/ Dr Figueroa at cancer center in [place] (11) Hypothyroidism: Assessment and Plan: Chronic Continue home levothyroxine TSH WNL (12) Hyperlipidemia: Assessment and Plan: Chronic Hold home statin for now in setting of transaminitis (13) Asthma: Assessment and Plan: Chronic Continue home Trelegy or pharmacy substitution per formulary
--- NOTE | 2024-05-08 14:51 | OT.DAILY ---
Occupational Therapy Daily Note OT Inpatient Daily Visit Note Start: 05/06/24 10:49 Freq: Status: Active Protocol: Document 05/08/24 14:44 [id number] (Rec: 05/08/24 14:51 [id number]) OT Visit Details Time In/Time Out Time In 14:15 Time Out 14:40 OT Treatment Plan Subjective Subjective I am feeling good Objective Objective Pt was AAOx4 visiting his family. Pt agreeable to attempt to ambulate to bathroom. Mod A completing STS transfer to walker, 2-4 verbal cues for hand placement and safety precautions. Able to void 150ml. Pt was able to maintain standing w/o LOB. Mod A donning/doffing LB garments . Denies dizziness. Pt able to maintain O2 on NC. Pt requires 1-3 verbal cues when sitting back in chair. He demonstrates good hand placement. Pt left in chair, call light within reach. Family continues to visit. Continue OT POC. OT Validation Architect Timed Codes Self-Fpc Management minutes ( 25 minutes) Self-Fpc Management units 2
--- NOTE | 2024-05-08 16:13 | SWNOTE1 ---
SW sent PT/OT and progress note from today to [facility].
--- NOTE | 2024-05-08 16:17 | SWNOTE1 ---
SW received email from Vaishali at [facility] and precert has been started.
[2024-05-08] MEDS: PEG PREP PO (16:27)
--- NOTE | 2024-05-08 17:44 | PC.NURSE ---
Wali been unable to thicken bowel prep. Hand Slitter contacted pharmacy to ask for advice as well as BOX ESTIMATOR and other nurses.
[2024-05-08] MEDS: LACTOSE -REDUCED (ENSURE ORIGINAL 237 ML LIQUID) PO (22:04)
[2024-05-08] MEDS: 0.9 % SODIUM CHLORIDE 1,000 ML 75 ML IV (23:26)
[2024-05-09] VITALS (20 sets, daily range): BP systolic 118–170; BP diastolic 70–97; PULSE 74–101; TEMP 36.4–37; O2SAT 90–95
--- NOTE | 2024-05-09 | PC.NURSE ---
1000 ml tap water enema with no results. Patient tolerated well
[2024-05-09] MEDS: PIPERACILLIN SODIUM/TAZOBACTAM 3.375 GM in 0.9 % SODIUM CHLORIDE 50 ML IV ×3 (02:08→18:37)
--- NOTE | 2024-05-09 02:39 | PC.NURSE ---
1000 ml tap water enema with patient laying on left side. small amount of BM . Patient tolerated well
[2024-05-09] MEDS: HYDRALAZINE HCL 20 MG/ML VIAL 10 MG IVP (03:41)
--- NOTE | 2024-05-09 04:00 | PC.NURSE ---
Tap water enema patient tolerated well. Small amount of formed BM
[2024-05-09] MEDS: ALBUTEROL SULFATE 2.5 MG/3 ML VIAL NEB IH ×3 (04:19→21:58)
[2024-05-09 05:29] LABS: Basophils Percent Auto 0.2 % (0.2-2.0); Eosinophils Absolute Auto 0.1 10^3/uL (0.0-0.7); Eosinophils Percent Auto 1.8 % (0.9-7.0); Hematocrit 27.2 % (42.0-54.0); Hemoglobin 8.3 g/dL (14.0-18.0); Immature Granulocytes Abs Auto 0.01 10^3/uL (0.00-0.03); Immature Granulocytes Pct Auto 0.2 % (0.0-0.5); Lymphocytes Absolute Auto 0.8 10^3/uL (1.2-3.8); Lymphocytes Percent Auto 17.4 % (20.5-60.0); Mean Corpuscular HGB Conc 30.5 g/dL (29.9-35.2); Mean Corpuscular Hemoglobin 29.3 pg (25.9-34.0); Mean Corpuscular Volume 96.1 fL (80.0-94.0); Mean Platelet Volume 8.8 fL (9.5-13.5); Monocytes Absolute Auto 0.5 10^3/uL (0.3-0.8); Neutrophils Absolute Auto 3.2 10^3/uL (1.4-6.5); Neutrophils Percent Auto 69.4 % (43.0-75.0); Platelet Count 147 10^3/uL (150-450); Red Blood Count 2.83 10^6/uL (4.70-6.10); Red Cell Distribution Width 15.4 % (11.0-15.0); White Blood Count 4.6 10^3/uL (4.0-11.0)
--- NOTE | 2024-05-09 05:40 | PC.NURSE ---
Tap water enema was attempted. water and bm mixed removed. Patient c/o cramping
[2024-05-09 05:54] LABS: Alanine Aminotransferase 32 U/L (16-63); Albumin Globulin Ratio 0.5; Alkaline Phosphatase 144 U/L (46-116); Anion Gap 12.7; Aspartate Amino Transferase 31 U/L (15-37); BUN Creatinine Ratio 7.4; Bilirubin Total 0.5 mg/dL (0.2-1.0); Calcium 8.3 mg/dL (8.5-10.1); Carbon Dioxide 23.7 mmol/L (21.0-32.0); Chloride 103 mmol/L (98-107); Estimated GFR (African America >60 (>=60); Estimated GFR (Non-African Ame >60 (>=60); Globulin 4.4 g/dL; Glucose 108 mg/dL (74-106); Potassium 3.4 mmol/L (3.5-5.1); Sodium 136 mmol/L (136-145); Total Protein 6.4 g/dL (6.4-8.2)
[2024-05-09] MEDS: BUDESONIDE 0.5 MG/2 ML AMPULE NEB IH ×2 (10:41→21:58)
--- NOTE | 2024-05-09 11:49 | PM.PN ---
Progress Note: Subjective Subjective Interval history: Patient stable this am. Not able to drink bowel prep due to dysphagia and using enemas. Overall feels better and mild SOB and cough. Sputum culture showed E. coli pneumonia likely due to aspiration. Hgb slightly decreased. Scheduled for EGD and colonoscopy later this am. Mild abdominal discomfort. No chest pain or palpitations. Exam Constitutional Vital Signs, click to edit/add: Last Vital Signs Temp 98.2 F 05/09/24 03:40 Pulse 94 H 05/09/24 10:40 Resp 18 05/09/24 10:40 BP 138/78 05/09/24 05:54 Pulse Ox 92 L 05/09/24 04:19 O2 Del Method Room Air 05/09/24 10:40 O2 Flow Rate 1 05/08/24 15:17 Documenting provider has reviewed patient's vital signs: yes Common normals: no apparent distress, oriented x3 and alert HENMT Common normals: normocephalic Eye Common normals: PERRL and EOMs intact bilaterally Respiratory Common normals: normal respiratory effort and clear to auscultation bilaterally Cardio Common normals: regular rate, regular rhythm, no gallops, no murmurs and no rub GI Common normals: Normal to inspection, nondistended, normoactive bowel sounds present and non-tender Palpation: no guarding Extremity Common normals: no pedal edema Progress Note: Objective Labs Labs: Short CBC 05/09/24 Range/Units 05:08 WBC 4.6 (4.0-11.0) 10^3/uL Hgb 8.3 L (14.0-18.0) g/dL Hct 27.2 L (42.0-54.0) % Plt Count 147 L (150-450) 10^3/uL BMP 05/09/24 05:08 Sodium 136 Potassium 3.4 L Chloride 103 Carbon Dioxide 23.7 BUN 6.0 L Creatinine 0.81 Glucose 108 H Calcium 8.3 L Liver Function 05/09/24 Range/Units 05:08 Total Bilirubin 0.5 (0.2-1.0) mg/dL AST 31 (15-37) U/L ALT 32 (16-63) U/L Alkaline Phosphatase 144 H (46-116) U/L Albumin 2.0 L (3.4-5.0) g/dL Progress Note: A&P Assessment and Plan (1) Pneumonia due to E. coli: (2) Mass of colon: (3) Anemia due to blood loss, chronic: (4) Metastatic cancer to lung of unknown cell type: (5) Metastatic cancer to liver: (6) Melena: (7) Type 2 diabetes mellitus with hyperglycemia: (8) Benign essential hypertension: (9) PVD (peripheral vascular disease): (10) History of tongue cancer: (11) Dysphagia: (12) Moderate protein-calorie malnutrition: Plan Patient slowly improving. Will continue levaquin for E. coli pneumonia and stop Rocephin. Took bowel prep but poor. Surgeon had to cancel procedures due to emergency and will now have tomorrow. Continue PT/OT for weakness and will need SNF upon discharge. Monitor labs and vitals.
--- NOTE | 2024-05-09 11:53 | CM.NOTE ---
Rounds made with Dr. Nelson. No plan for discharge today.
--- NOTE | 2024-05-09 12:03 | REH.PTDLY ---
Physical Therapy Daily Note PT Daily Note/Assess Start: 05/07/24 10:54 Freq: Status: Active Protocol: Document 05/09/24 11:54 KIRSTEN (Rec: 05/09/24 12:02 KIRSTEN [id number]) Physical Therapy Daily Note/Assessment Time In 11:16 Time Out 11:30 Subjective Pt waiting on colonoscopy today. Nothing to eat so I am probably weak pt states. Therapeutic Activity Minutes (minutes) 13 Therapeutic Activity Units 1 Bed Mobility Ability Standby Assistance Chair Transfer Ability Minimum Assist Therapeutic Activity Comments Pt performs bed mobility using bed rail SBA. Sit to stand transfer Min A. Nursing in room to assist with gown and brief change. Pt able to maintain standing balance while holding onto RW and CGA. Gait training with RW CGA with nursing pushing IV pole 75 feet x 2 at slow pace with pt taking standing rest break. Total Therapy Minutes 13 Total Physical Therapy Units 1 Daily Note Summary Colonoscopy gets cancelled while in room with pt. Pt is upset by this, reports he is just going to keep getting weaker if he has to stay in this hospital any longer. Pt was able to ambulate further today, but does fatigue with this and needs CGA for safety. Pt would benefit from rehab stay upon DC to become stronger
--- NOTE | 2024-05-09 12:11 | SWNOTE1 ---
Pt is approved. Pt is not having procedure done due to doctor having an emergency. SW sent email to Vaishali at [facility] to see how long precert is good for.
[2024-05-09] MEDS: ACETAMINOPHEN 500 MG TABLET 1000 MG PO (12:13)
[2024-05-09] MEDS: ENOXAPARIN SODIUM 40 MG/0.4 ML SYRINGE SUBQ (12:13)
[2024-05-09] MEDS: GUAIFENESIN 600 MG TAB.ER.12H PO ×2 (12:13→22:29)
[2024-05-09] MEDS: 0.9 % SODIUM CHLORIDE 1,000 ML 75 ML IV (12:59)
[2024-05-09] MEDS: LACTOSE -REDUCED (ENSURE ORIGINAL 237 ML LIQUID) PO (22:30)
[2024-05-10] VITALS (9 sets, daily range): BP systolic 135–143; BP diastolic 76–88; PULSE 78–105; TEMP 36.1–36.9; O2SAT 90–96
[2024-05-10] MEDS: ACETAMINOPHEN 500 MG TABLET 1000 MG PO (01:55)
[2024-05-10] MEDS: 0.9 % SODIUM CHLORIDE 1,000 ML 75 ML IV (01:55)
[2024-05-10] MEDS: PIPERACILLIN SODIUM/TAZOBACTAM 3.375 GM in 0.9 % SODIUM CHLORIDE 50 ML IV (02:06)
[2024-05-10 05:19] LABS: Basophils Percent Auto 0.3 % (0.2-2.0); Eosinophils Absolute Auto 0.1 10^3/uL (0.0-0.7); Eosinophils Percent Auto 1.9 % (0.9-7.0); Hematocrit 27.3 % (42.0-54.0); Hemoglobin 8.6 g/dL (14.0-18.0); Immature Granulocytes Abs Auto 0.01 10^3/uL (0.00-0.03); Immature Granulocytes Pct Auto 0.3 % (0.0-0.5); Lymphocytes Absolute Auto 0.7 10^3/uL (1.2-3.8); Lymphocytes Percent Auto 18.7 % (20.5-60.0); Mean Corpuscular HGB Conc 31.5 g/dL (29.9-35.2); Mean Corpuscular Hemoglobin 29.7 pg (25.9-34.0); Mean Corpuscular Volume 94.1 fL (80.0-94.0); Mean Platelet Volume 8.9 fL (9.5-13.5); Monocytes Absolute Auto 0.4 10^3/uL (0.3-0.8); Monocytes Percent Auto 10.6 % (1.7-12.0); Neutrophils Absolute Auto 2.5 10^3/uL (1.4-6.5); Neutrophils Percent Auto 68.2 % (43.0-75.0); Platelet Count 159 10^3/uL (150-450); Red Cell Distribution Width 15.1 % (11.0-15.0); White Blood Count 3.6 10^3/uL (4.0-11.0)
[2024-05-10 05:41] LABS: Alanine Aminotransferase 28 U/L (16-63); Albumin Globulin Ratio 0.5; Albumin Level 2.1 g/dL (3.4-5.0); Alkaline Phosphatase 145 U/L (46-116); Aspartate Amino Transferase 29 U/L (15-37); BUN Creatinine Ratio 5.7; Bilirubin Total 0.5 mg/dL (0.2-1.0); Calcium 8.6 mg/dL (8.5-10.1); Carbon Dioxide 23.3 mmol/L (21.0-32.0); Chloride 103 mmol/L (98-107); Estimated GFR (African America >60 (>=60); Estimated GFR (Non-African Ame >60 (>=60); Globulin 4.4 g/dL; Glucose 82 mg/dL (74-106); Potassium 3.3 mmol/L (3.5-5.1); Sodium 137 mmol/L (136-145); Total Protein 6.5 g/dL (6.4-8.2)
--- NOTE | 2024-05-10 07:41 | PM.GSPRC ---
Date of procedure: 05/10/24 Indications for Procedure: Right colon mass/anemia/melena Pre-op diagnosis: Colon mass/anemia/melena Procedure: colonoscopy with biopsy right colon mass hepatic flexure EGD with biopsy antrum and distal esophagus and midesophagus Findings: Superficial gastritis without hemorrhage Esophagitis rule out Nelson's esophagus with erosion Erosive esophagitis at about 30 cm Hepatic flexure tumor pseudo obstructing Anesthesia: MAC Surgeon: Issa Salas Procedure Summary: PROCEDURE: The patient was taken to the Endoscopy Suite, placed in the left lateral recumbent position, given IV sedation as above. The Olympus EGD scope was advanced under direct visualization to the posterior pharynx esophagus into the stomach through the pylorus into the first second third and fourth portions of the duodenum. The duodenum was completely normal without ulcers polyps or tumors seen. The scope was withdrawn to the stomach retroflexed on itself look at the GE junction which was normal. He had some mild superficial gastritis with no ulceration or active bleeding seen. Biopsies were taken and hemostasis maintained. The scope was withdrawn to the distal esophagus where it appears that he has possibly Nelson's esophagus but definitely esophagitis and biopsies were taken and there was 1 area of erosion at the distal GE junction and in the scope was withdrawn further and in the mid esophagus evidence of erosive esophagitis and another biopsy was taken and hemostasis maintained. There were no tumors in the stomach or esophagus. 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 A rectal digital exam was performed. The sphincter tone was found to be normal. No rectal masses were appreciated. Prostate was smooth slightly enlarged without nodules. The Olympus video colonoscope was advanced under direct visualization to the rectum, sigmoid colon, descending colon, transverse colon to the hepatic flexure where a tumor was encountered compatible with CT findings. The prep was poor. It was difficult to get up to that point. Multiple biopsies were taken of the mass in the hepatic flexure. The tumor could not be traversed because I cannot find a lumen. The scope was slowly withdrawn with air being desufflated as it was withdrawn. He did have a few diverticuli seen. The patient tolerated the procedure well and went to the Recovery Area in satisfactory condition. Patient is not completely obstructed at this point. But if he begins to show signs of obstruction a palliative procedure with a ileostomy could be performed and/or colon resection depending on his medical status but his nutrition needs to be optimized and his pneumonia needs to be resolved. Otherwise there is high morbidity and mortality. Estimated blood loss (mL): 2 Specimens: Antral and esophageal biopsies Hepatic flexure tumor biopsy Complications: No Condition: stable Disposition: PACU
--- NOTE | 2024-05-10 08:51 | CM.NOTE ---
Mr. Rm in surgery during rounds. Dr. Nelson will see when recovered.
[2024-05-10] MEDS: ENOXAPARIN SODIUM 40 MG/0.4 ML SYRINGE SUBQ (09:28)
[2024-05-10] MEDS: GUAIFENESIN 600 MG TAB.ER.12H PO (09:29)
[2024-05-10] MEDS: LACTOSE -REDUCED (ENSURE ORIGINAL 237 ML LIQUID) PO (09:31)
--- NOTE | 2024-05-10 10:23 | PM.DS1 ---
DS: Providers Provider Date of admission: 05/06/24 08:10 Primary care physician: NEO SINGH Consults: 05/06/24 Consult to Dietitian Routine Reason for consultation: weight loss/ca 05/06/24 07:17 Occupational Therapy Eval and Treat Routine Reason for consultation: Weakness, unable to ambulate Physical Therapy Eval and Treat Routine Reason for consultation: Weakness, unable to ambulate Has provider been notified: No 05/06/24 08:08 Consult to General Surgeon Routine Consulting Provider: Issa Salas Reason for consultation: New colonic mass w/ mets to lymph/liver/?lung Has provider been notified: No 05/06/24 10:23 Consult to Dietitian Routine Reason for consultation: weight loss, poss colon CA Has provider been notified: No 05/06/24 12:40 Speech Therapy Eval and Treat Routine Reason for consultation: difficulty swallowing Has provider been notified: No 05/06/24 13:53 Consult to Dietitian Routine Reason for consultation: malnutrition Has provider been notified: No 05/07/24 09:11 Consult to Oncology Routine Consulting Provider: Sharon Harper Reason for consultation: New colon mass w/ likely mets to liver/lymph/lung Has provider been notified: Yes DS: Diagnosis Discharge Diagnosis (1) Pneumonia due to E. 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 74 y/o male to ER with weakness. Patient with increased weakness over past several days. Woke up and too weak to get out of bed and urinated in bed. reports not eating as much recently. To ER and afebrile and normal SpO2 on room air. UA negative. Chest x-ray with pneumonia. C/o abdominal pain and CT abdomen performed which showed large mass in ascending colon suspicious for cancer. Admitted for treatment. Hospital course: Started zithromax and rocephin for pneumonia. History of tongue cancer and prior resection of posterior tongue. Noted coughing with swallowing and speech eval performed. Recommend puree diet with nectar thickened liquids and diet changed. Concerned of aspiration pneumonia and changed antibiotics to zosyn. General surgery and oncology consulted. CT chest showed what appears to be multiple metastatic lesions. Review of chart shows colonoscopy 01/01/22 that showed diverticula but no mass. PT/OT started for weakness. Surgery planned on endoscopy. Oncology discussed chemotherapy options for colon cancer. Sputum showed E. coli pneumonia due to aspiration. PT recommended SNF for weakness. To OR for EGD and colonoscopy. EGD showed gastritis and esophagitis. Able to reach colon mass and obtain biopsies. Received insurance approval for SNF. Transferred to SNF in stable condition. Follow up with oncology to review pathology and discuss chemotherapy options. Will take augmentin x 10 days for pneumonia. Resume home medication as directed. Time Spent with Patient Time attestation: Total time spent providing and/or coordinating discharge services: Time spent: greater than 30 minutes Exam Constitutional Vital Signs, click to edit/add: Last Vital Signs Temp 96.9 F L 05/10/24 08:53 Pulse 84 05/10/24 09:52 Resp 20 05/10/24 08:53 BP 135/88 05/10/24 08:53 Pulse Ox 91 L 05/10/24 08:53 O2 Del Method Room Air 05/10/24 08:53 O2 Flow Rate 1 05/08/24 15:17 Documenting provider has reviewed patient's vital signs: yes Common normals: no apparent distress, oriented x3 and alert HENNV Common normals: normocephalic Eye Common normals: PERRL and EOMs intact bilaterally Respiratory Common normals: normal respiratory effort and clear to auscultation bilaterally Cardio Common normals: regular rate, regular rhythm, no gallops, no murmurs and no rub GI Common normals: Normal to inspection, nondistended, normoactive bowel sounds present and non-tender Extremity Common normals: no pedal edema DS: Data Data Completed and Pending Labs on day of discharge: Labs from last 24 hours 05/10/24 04:16 WBC 3.6 L RBC 2.90 L Hgb 8.6 L Hct 27.3 L MCV 94.1 H MCH 29.7 MCHC 31.5 RDW 15.1 H Plt Count 159 MPV 8.9 L Neut % (Auto) 68.2 Lymph % (Auto) 18.7 L Pershing % (Auto) 10.6 Eos % (Auto) 1.9 Baso % (Auto) 0.3 Neut # (Auto) 2.5 Lymph # (Auto) 0.7 L Pershing # (Auto) 0.4 Eos # (Auto) 0.1 Baso # (Auto) 0.0 Abs Immat Gran (auto) 0.01 Imm/Tot Granulo (auto) 0.3 Sodium 137 Potassium 3.3 L Chloride 103 Carbon Dioxide 23.3 Anion Gap 14.0 BUN 5.0 L Creatinine 0.88 Est GFR ( Amer) >60 Est GFR (Non-Af Amer) >60 BUN/Creatinine Ratio 5.7 Glucose 82 Calcium 8.6 Total Bilirubin 0.5 AST 29 ALT 28 Alkaline Phosphatase 145 H Total Protein 6.5 Albumin 2.1 L Globulin 4.4 Albumin/Globulin Ratio 0.5 Preliminary micro results at discharge 05/06/24 05:29 - Preliminary Blood NO GROWTH AT 36-48 HOURS. FINAL TO FOLLOW. 05/06/24 04:40 Blood Culture Result 1 - Preliminary Blood NO GROWTH AT 36-48 HOURS. FINAL TO FOLLOW. Discharge Plan Discharge Disposition: Xfer SNF Condition: Fair Discharge Medications: New amoxicillin-pot clavulanate 875-125 mg tablet 1 tab PO Q12H 14 Days Qty: 28 0RF omeprazole 40 mg capsule,delayed release(DR/EC) 40 mg PO DAILY Qty: 1 0RF Continued atorvastatin 40 mg tablet 40 mg PO .qd aspirin 81 mg tablet,chewable 1 tab PO .qd Trelegy Ellipta 100-62.5-25 mcg blister with device 1 inh INHALATION Q24H levothyroxine 75 mcg tablet 75 mcg PO .qd Print Language: Andorran Garbage Collector Driver/Audit Practice Intern Instructions: Discharge to [facility] skilled Forms: Portal Instructions Follow Up Appointments: - Dr Figueroa, [facility] at [facility] - new dx of colon mass w/ suspected mets to lymph/liver/lung
--- NOTE | 2024-05-10 10:23 | SWNOTE1 ---
ROBSON spoke to pt and in room. They are aware pt is approved to go to [facility] today. has brought clothes. is going to transport, she would like for pt to finish Ensure before he leaves. ROBSON spoke to pt and about follow up appointment with [facility] or Dr. Harper. voiced that pt wants to get a second opinion at [facility] with current oncologist. She has reached out to PCP as well. She does not want us to schedule follow up with Dr. Harper at this time. Once the results are back and pt gets second opinion, they will determine who pt wants to continue to follow. Fabienne the clinical secretary on med/surge is aware and will try to schedule follow up with [facility]. ROBSON notified [facility] that pt is coming anytime after 11:00. ROBSON faxed over dc med rec. ROBSON completed HENS. Pt is going to [facility] skilled.
--- NOTE | 2024-05-10 11:07 | PC.NURSE ---
Report called to Irasema at [facility]. to transfer over per car
--- NOTE | 2024-05-10 11:08 | PT.DAILY ---
Physical Therapy Daily Note PT Daily Note/Assess Start: 05/07/24 10:54 Freq: Status: Active Protocol: Document 05/10/24 11:04 HEATH (Rec: 05/10/24 11:08 HEATH [id number]) Physical Therapy Daily Note/Assessment Time In/Time Out Time In 10:15 Time Out 10:25 Pain In Pain N/A Pain Out Pain N/A Subjective Subjective Pt sitting in BS chair upon arrival. Agrees to PT. Therapeutic Exercise Time Therapeutic Exercise Minutes (minutes) 3 Therapeutic Exercise Units 0 Therapeutic Exercise Treatment Therapeutic Exercise Treatment Seated AP, LAQ, marches and add squeezes prior to gait and transfers. Therapeutic Activity Time Therapeutic Activity Minutes (minutes) 7 Therapeutic Activity Units 1 Therapeutic Activity Treatment Chair Transfer Ability Contact Guard Assist Therapeutic Activity Comments Sit>stand from BS chair CGA with increased time. Pt amb 100' with RW, CGA for safety. Increased time needed on the turn back to room. No LOB noticed. Demonstrates shuffling gait. Returned to BS chair upon completion with family present. Total Physical Therapy Time Total Therapy Minutes 10 Total Physical Therapy Units 1 Summary Daily Note Summary Improving transfer and gait ability.
[2024-05-11 14:39] LABS: H Pylori Tissue, Urease Negative
== END 2024-05-10 11:30 | DRG 374 ==
LOC: ER 06:51 → MS 08:14
PROVIDERS: Nurse Practitioner; Surgery; Admitting Provider Family Medicine; Emergency Provider Emergency Medicine; PCP Family Medicine; Visit Provider Family Medicine
PROC: 0DBL8ZX Excision of Transverse Colon, Via Natural or Artificial Opening Endoscopic, Diagnostic (ICD-10-PCS; 2024-05-10 07:30)
DX: C18.2 Malignant neoplasm of ascending colon (principal); J15.5 Pneumonia due to Escherichia coli; J69.0 Pneumonitis due to inhalation of food and vomit; C77.9 Secondary and unspecified malignant neoplasm of lymph node, unspecified; C78.7 Secondary malignant neoplasm of liver and intrahepatic bile duct; K22.10 Ulcer of esophagus without bleeding; E44.0 Moderate protein-calorie malnutrition; C78.02 Secondary malignant neoplasm of left lung; C78.01 Secondary malignant neoplasm of right lung; D50.0 Iron deficiency anemia secondary to blood loss (chronic); I10 Essential (primary) hypertension; E11.65 Type 2 diabetes mellitus with hyperglycemia; R53.1 Weakness; J45.909 Unspecified asthma, uncomplicated; K29.70 Gastritis, unspecified, without bleeding; E11.51 Type 2 diabetes mellitus with diabetic peripheral angiopathy without gangrene; E78.5 Hyperlipidemia, unspecified; E03.9 Hypothyroidism, unspecified; R13.10 Dysphagia, unspecified; K59.09 Other constipation; I25.2 Old myocardial infarction; Z80.0 Family history of malignant neoplasm of digestive organs; Z92.21 Personal history of antineoplastic chemotherapy; Z92.3 Personal history of irradiation; Z86.73 Personal history of transient ischemic attack (TIA), and cerebral infarction without residual deficits; Z85.810 Personal history of malignant neoplasm of tongue; Z79.82 Long term (current) use of aspirin; Z79.899 Other long term (current) drug therapy; Z91.040 Latex allergy status; Z79.890 Hormone replacement therapy; Z79.51 Long term (current) use of inhaled steroids; Z68.21 Body mass index [BMI] 21.0-21.9, adult; Z85.828 Personal history of other malignant neoplasm of skin; Z80.1 Family history of malignant neoplasm of trachea, bronchus and lung
CPT/HCPCS: 36415; 71045; 71260; 74177; 80048; 80053; 80076; 81001; 82140; 82378; 83615; 84443; 84484; 84550; 85025; 87040; 87070; 87077; 87150; 87186; 87205; 87811; 88305; 88312; 88342; 92526; 92610; 93005; 94640; 94761; 96365; 96366; 96367; 96372; 96375; 97161; 97165; 97530; 97535; 99285; 99999; G0328; J0360; J0456; J0696; J1650; J2405; J2543; J2704; Q9967

== ENCOUNTER 2024-05-22 18:34 | Inpatient (IN) | payer MEDICARE, SELFPAY ==
[2024-05-22] VITALS (23 sets, daily range): BP systolic 123–140; BP diastolic 84–94; PULSE 74–96; TEMP 36.9–37; O2SAT 88–100; BMI 25.8; BMI 20.9
--- NOTE | 2024-05-22 18:43 | CT_ITS ---
[address] [address] Patient Name: ROXANN DELAROSA MRN: [id number] date: 1950 Sex: M Assigned Patient Location: ED.MAIN Current Patient Location: Accession/Order Number: [id number] Exam Date: 05/22/2024 19:44 Report Date: 05/22/2024 20:33 At the request of: NATHAN WEST Procedure: CT angio chest EXAM: CT pulmonary angiogram of the chest using 99 mL of IV iodinated contrast. CT scan of the abdomen and pelvis using IV contrast. Dose reduction technique used: Automated exposure control and/or adjustment of the mA and/or kV according to patient size and/or use of iterative reconstruction technique. REASON FOR EXAM: Hypoxia, hemoptysis COMPARISON: CT scan dated 05/07/2024 FINDINGS: CHEST: No pulmonary emboli. No aortic dissection. No pneumothorax. No pleural effusion. No acute fractures. Airspace opacities in the right mid and lower lung and to a lesser extent the left lower lung. Numerous bilateral pulmonary nodules, for example a right middle lobe solid pulmonary nodule measuring 1.2 x 1.1 cm. Mildly enlarged mediastinal lymph nodes, for example a posterior paraesophageal lymph node measuring 2.4 x 1.5 cm. Coronary atherosclerotic calcifications. Centrilobular emphysema in both lungs. ABDOMEN/PELVIS: Short segment wall thickening along the ascending colon with adjacent siva metastases, the largest siva metastasis in this region measures 1.8 x 1.3 cm. Numerous hepatic metastases throughout both lobes of the liver, for example a right hepatic lesion at the level of the main portal vein between segments 5 and 6 measures 5.1 x 3.8 cm (series 7, image 31). Possible lytic lesion in the right femoral head. Distended cecum and mildly dilated small bowel diffusely. Mild small bowel wall thickening. Colonic diverticulosis. Small amount of ascites. Enlarged prostate. Negative appendix. No free intraperitoneal air. No hydronephrosis or obstructing renal or ureteral calculi. Liver, pancreas, spleen, bilateral kidneys, and bilateral adrenal glands are otherwise unremarkable. Remainder unremarkable. CT/CT angio chest IMPRESSION: 1. No pulmonary embolism. 2. Airspace opacities in the right mid and bilateral lower lung likely resents pneumonia. 3. Numerous bilateral pulmonary metastases are not significantly changed. 4. Mediastinal no metastases are not substantially changed. 5. Numerous hepatic metastases are not substantially changed. 6. Probable primary colon cancer in the ascending colon. 7. 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 8. Possible lytic lesion in the right femoral head. 9. Dilated small bowel and cecum likely from mechanical obstruction at the ascending colonic lesion. Electronically authenticated by: THERESA SOLIS Date: 05/22/2024 20:33
--- NOTE | 2024-05-22 18:44 | ECG_ITS ---
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
--- NOTE | 2024-05-22 18:45 | ED.GENADUL1 ---
HPI HPI - General Adult General Chief complaint: Shortness of Breath/Dyspnea Stated complaint: General Weakness Time Seen by Provider: 05/22/24 18:36 Source: patient Mode of arrival: Wheelchair Limitations: physical limitation History of Present Illness HPI narrative: Patient is a 74-year-old male who presents to the emergency department at the recommendation of his home health nurse for evaluation of hypoxia, hemoptysis and concern for aspiration in addition to decreased oral intake and vomiting. Patient was recently seen in this emergency department, approximately 2 weeks ago and was found to have pneumonia and imaging showed concern for metastatic liver disease and colon mass. While admitted, the patient was seen by both oncology and general surgery. He had an EGD and colonoscopy done. Related Data Home Medications ?Medication ?Instructions ?Recorded ?Confirmed aspirin 81 mg chewable tablet 1 tab PO .qd 05/06/24 05/06/24 atorvastatin 40 mg tablet 40 mg PO .qd 05/06/24 05/06/24 fluticasone fur. 100 mcg-umeclid 1 inh inhalation Q24H 05/06/24 05/06/24 62.5 mcg-vilant 25 mcg inhalat.powder (Trelegy Ellipta) levothyroxine 75 mcg tablet 75 mcg PO .qd 05/06/24 05/06/24 Previous Rx's ?Medication ?Instructions ?Recorded amoxicillin 875 mg-potassium 1 tab PO Q12H 14 days #28 tabs 05/10/24 clavulanate 125 mg tablet omeprazole 40 mg capsule,delayed 40 mg PO DAILY #1 cap 05/10/24 release Allergies Allergy/AdvReac Type Severity Reaction Status Date / Time latex Allergy Intermediate Verified 05/22/24 18:41 Opioid HPI Opioid Management Most Recent Opioid Data: Last Pain Scale 3 05/10/24 03:56 Last Pain Intensity 0 05/06/24 10:22 Last Pain Assessment 05/23/24 03:00 Last ORT Total Score 0 05/22/24 23:07 Last ORT Risk Category Low Risk 05/22/24 23:07 [facility] Medical History (Updated 05/22/24 @ 23:15 by Cate Boles RN) Tongue cancer ?C02.9 - Malignant neoplasm of tongue, unspecified (ICD-10) Anemia due to blood loss, chronic ?D50.0 - Iron deficiency anemia secondary to blood loss (chronic) (ICD-10) Moderate protein-calorie malnutrition ?E44.0 - Moderate protein-calorie malnutrition (ICD-10) Dysphagia ?R13.10 - Dysphagia, unspecified (ICD-10) History of tongue cancer ?Z85.810 - Personal history of malignant neoplasm of tongue (ICD-10) Type 2 diabetes mellitus with hyperglycemia ?E11.65 - Type 2 diabetes mellitus with hyperglycemia (ICD-10) PVD (peripheral vascular disease) ?I73.9 - Peripheral vascular disease, unspecified (ICD-10) Benign essential hypertension ?I10 - Essential (primary) hypertension (ICD-10) Mass of colon ?K63.89 - Other specified diseases of intestine (ICD-10) Pneumonia ?J18.9 - Pneumonia, unspecified organism (ICD-10) Transaminitis ?R74.01 - Elevation of levels of liver transaminase levels (ICD-10) Anemia ?D64.9 - Anemia, unspecified (ICD-10) Asthma ?J45.909 - Unspecified asthma, uncomplicated (ICD-10) Hyperlipidemia ?E78.5 - Hyperlipidemia, unspecified (ICD-10) Hypothyroidism ?E03.9 - Hypothyroidism, unspecified (ICD-10) Intraparenchymal hemorrhage of brain ?I61.9 - Nontraumatic intracerebral hemorrhage, unspecified (ICD-10) Family History (Updated 05/22/24 @ 23:17 by Cate Boles RN) Mother Family history of cancer Father Family history of cancer Sister Family history of diabetes mellitus Social History (Updated 05/22/24 @ 23:18 by Cate Boles RN) Within the past year, how often did you have a drink containing alcohol: never Score interpretation: A score less than 4 is consistent with normal alcohol consumption. Smoking status: Never smoker Non-prescribed substance use: denies use Highest level of school completed/degree received: decline to answer Are you now , , , , never or living with a partner: Do you think of yourself as: straight/heterosexual Gender Identity: male Exam Constitutional Vital Signs, click to edit/add: Last Vital Signs Temp 98.4 F 05/22/24 22:55 Pulse 65 05/23/24 02:05 Resp 18 05/22/24 22:55 BP 140/92 H 05/22/24 22:55 Pulse Ox 98 05/22/24 23:22 O2 Del Method Nasal Cannula 05/22/24 23:22 O2 Flow Rate 2 05/22/24 23:22 Course Vital Signs Vital signs: Vital Signs Pulse Oximetry 90 L 05/22/24 18:40 Temperature 98.4 F 05/22/24 22:55 Pulse Rate 65 05/23/24 02:05 Respiratory Rate 18 05/22/24 22:55 Blood Pressure 140/92 H 05/22/24 22:55 Pulse Oximetry 98 05/22/24 23:22 Oxygen Delivery Method Nasal Cannula 05/22/24 23:22 Oxygen Delivery Flow Rate 2 05/22/24 23:22 Medical Decision Making MDM Narrative Medical decision making narrative: Patient placed on a nasal cannula on arrival to the emergency department, he was given IV fluids, albuterol breathing treatment. He had no episodes of emesis in the emergency department. He has no complaints of abdominal pain or chest pain. He states he does not feel particularly short of breath in the ER tonight. Lab studies are stable although BUN is increasing and the patient is likely dehydrated. Troponin and BNP are normal. Patient was sent for CT angio of the chest as well as CT of the abdomen and pelvis. Based on his history of metastatic cancer, hypoxia and occasional hemoptysis per home health, this was performed to rule out a PE. CT of the chest shows continued multifocal pneumonia with multiple areas of metastasis. There is question from the radiologist of dilated loops of bowel and cecum which may be secondary to mechanical obstruction from the primary colon mass. Patient has no complaints of abdominal pain, he has not had any continued vomiting today. I discussed these results with Dr. Galvan who is on-call for Dr. Pike who performed the patient's initial EGD and colonoscopy. Patient was able to tolerate ice chips in the ER with no vomiting. At this point, he is not medically optimized for any kind of palliative ileostomy which was recommended by Dr. Salas' operative note on the colonoscopy findings. At this time the patient will require medical treatment for pneumonia and hypoxia and can be evaluated in the hospital. He was treated with IV Zosyn and vancomycin. Blood cultures are pending. Admitted to hospitalist for further evaluation and treatment. SUPERVISED APC VISIT, PHYSICIAN ATTESTATION: Based on the medical record the care appears appropriate. ? Medical Records Medical records reviewed: Yes I reviewed the patient's medical records Lab Data Lab results reviewed: Yes I reviewed the patient's lab results Labs: Lab Results 05/22/24 05/22/24 05/22/24 Range/Units 18:49 18:55 21:46 WBC 6.0 (4.0-11.0) 10^3/uL RBC 3.42 L (4.70-6.10) 10^6/uL Hgb 9.9 L (14.0-18.0) g/dL Hct 32.8 L (42.0-54.0) % MCV 95.9 H (80.0-94.0) fL MCH 28.9 (25.9-34.0) pg MCHC 30.2 (29.9-35.2) g/dL RDW 15.7 H (11.0-15.0) % Plt Count 266 (150-450) 10^3/uL MPV 9.4 L (9.5-13.5) fL Neut % (Auto) 63.9 (43.0-75.0) % Lymph % (Auto) 23.3 (20.5-60.0) % [place] % (Auto) 8.1 (1.7-12.0) % Eos % (Auto) 4.0 (0.9-7.0) % Baso % (Auto) 0.5 (0.2-2.0) % Neut # (Auto) 3.9 (1.4-6.5) 10^3/uL Lymph # (Auto) 1.4 (1.2-3.8) 10^3/uL [place] # (Auto) 0.5 (0.3-0.8) 10^3/uL Eos # (Auto) 0.2 (0.0-0.7) 10^3/uL Baso # (Auto) 0.0 (0.0-0.1) 10^3/uL Abs Immat Gran (auto) 0.01 (0.00-0.03) 10^3/uL Imm/Tot Granulo (auto) 0.2 (0.0-0.5) % PT 10.9 (9.0-11.6) sec INR 1.03 VBG pH 7.425 (7.330-7.430) VBG pCO2 47.5 (40.0-52.0) mmHg Sodium 135 L (136-145) mmol/L Potassium 4.3 (3.5-5.1) mmol/L Chloride 97 L (98-107) mmol/L Carbon Dioxide 31.6 (21.0-32.0) mmol/L Anion Gap 10.7 BUN 21.0 H (7.0-18.0) mg/dL Creatinine 1.37 H (0.70-1.30) mg/dL Est GFR ( Amer) >60 (>=60) Est GFR (Non-Af Amer) 51 L (>=60) BUN/Creatinine Ratio 15.3 Glucose 143 H (74-106) mg/dL Lactate 2.8 H* 2.3 H* (0.4-2.0) mmol/L Calcium 10.0 (8.5-10.1) mg/dL Total Bilirubin 0.4 (0.2-1.0) mg/dL AST 47 H (15-37) U/L ALT 35 (16-63) U/L Alkaline Phosphatase 283 H (46-116) U/L Troponin I High Sens 6.7 (4.0-76.1) pg/mL NT-Pro-B Natriuret Pep 196.0 (<=900.0) pg/mL Total Protein 8.0 (6.4-8.2) g/dL Albumin 2.9 L (3.4-5.0) g/dL Globulin 5.1 g/dL Albumin/Globulin Ratio 0.6 Procalcitonin 0.54 H (0.00-0.50) ng/mL Imaging Data CT scan - chest: Attestation: I have reviewed the pertinent imaging results. Radiologist's impression: ITS Impressions Chest CTA 05/22/24 18:43 IMPRESSION: 1. No pulmonary embolism. 2. Airspace opacities in the right mid and bilateral lower lung likely resents pneumonia. 3. Numerous bilateral pulmonary metastases are not significantly changed. 4. Mediastinal no metastases are not substantially changed. 5. Numerous hepatic metastases are not substantially changed. 6. Probable primary colon cancer in the ascending colon. 7. 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 8. Possible lytic lesion in the right femoral head. 9. Dilated small bowel and cecum likely from mechanical obstruction at the ascending colonic lesion. Electronically authenticated by: THERESA SOLIS Date: 05/22/2024 20:33 Abdomen/Pelvis CT 05/22/24 18:54 IMPRESSION: 1. No pulmonary embolism. 2. Airspace opacities in the right mid and bilateral lower lung likely resents pneumonia. 3. Numerous bilateral pulmonary metastases are not significantly changed. 4. Mediastinal no metastases are not substantially changed. 5. Numerous hepatic metastases are not substantially changed. 6. Probable primary colon cancer in the ascending colon. 7. 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 8. Possible lytic lesion in the right femoral head. 9. Dilated small bowel and cecum likely from mechanical obstruction at the ascending colonic lesion. Electronically authenticated by: THERESA SOLIS Date: 05/22/2024 20:33 ECG Data Attestation: I personally reviewed and interpreted this ECG as follows: (Normal sinus rhythm at a rate of 88, right bundle branch block with no acute ST elevation or ectopy. EKG reviewed by attending physician) Discharge Plan Discharge Chief Complaint: Shortness of Breath/Dyspnea Clinical Impression: Multifocal pneumonia, Hypoxia, Metastatic cancer Patient Disposition: Admitted As Inpatient Time of Disposition Decision: 21:06 Condition: Good Discharge Date/Time: 05/22/24 22:30
--- NOTE | 2024-05-22 18:54 | CT_ITS ---
[address] [address] Patient Name: ROXANN DELAROSA MRN: [id number] date: 1950 Sex: M Assigned Patient Location: ER Current Patient Location: Accession/Order Number: [id number] Exam Date: 05/22/2024 19:44 Report Date: 05/22/2024 20:33 At the request of: NATHAN WEST Procedure: CT abdomen pelvis w con EXAM: CT pulmonary angiogram of the chest using 99 mL of IV iodinated contrast. CT scan of the abdomen and pelvis using IV contrast. Dose reduction technique used: Automated exposure control and/or adjustment of the mA and/or kV according to patient size and/or use of iterative reconstruction technique. REASON FOR EXAM: Hypoxia, hemoptysis COMPARISON: CT scan dated 05/07/2024 FINDINGS: CHEST: No pulmonary emboli. No aortic dissection. No pneumothorax. No pleural effusion. No acute fractures. Airspace opacities in the right mid and lower lung and to a lesser extent the left lower lung. Numerous bilateral pulmonary nodules, for example a right middle lobe solid pulmonary nodule measuring 1.2 x 1.1 cm. Mildly enlarged mediastinal lymph nodes, for example a posterior paraesophageal lymph node measuring 2.4 x 1.5 cm. Coronary atherosclerotic calcifications. Centrilobular emphysema in both lungs. ABDOMEN/PELVIS: Short segment wall thickening along the ascending colon with adjacent siva metastases, the largest siva metastasis in this region measures 1.8 x 1.3 cm. Numerous hepatic metastases throughout both lobes of the liver, for example a right hepatic lesion at the level of the main portal vein between segments 5 and 6 measures 5.1 x 3.8 cm (series 7, image 31). Possible lytic lesion in the right femoral head. Distended cecum and mildly dilated small bowel diffusely. Mild small bowel wall thickening. Colonic diverticulosis. Small amount of ascites. Enlarged prostate. Negative appendix. No free intraperitoneal air. No hydronephrosis or obstructing renal or ureteral calculi. Liver, pancreas, spleen, bilateral kidneys, and bilateral adrenal glands are otherwise unremarkable. Remainder unremarkable. CT/CT abdomen pelvis w con IMPRESSION: 1. No pulmonary embolism. 2. Airspace opacities in the right mid and bilateral lower lung likely resents pneumonia. 3. Numerous bilateral pulmonary metastases are not significantly changed. 4. Mediastinal no metastases are not substantially changed. 5. Numerous hepatic metastases are not substantially changed. 6. Probable primary colon cancer in the ascending colon. 7. 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 8. Possible lytic lesion in the right femoral head. 9. Dilated small bowel and cecum likely from mechanical obstruction at the ascending colonic lesion. Electronically authenticated by: THERESA SOLIS Date: 05/22/2024 20:33
[2024-05-22] MEDS: 0.9 % SODIUM CHLORIDE 1,000 ML 999 ML IV (18:57)
--- OUTSIDE RECORDS SUMMARY | 2024-05-22 18:59 | XMS_ITS ---
Patient Summarization (C-CDA 2.1 CCD) Created on: May 22, 2024 MaileROXANN FONSECA : 1950 Sex: Male Author Organization Sample organization Care Team Providers Care Heel Stainer Name Role Phone Apollo Lopes Unavailable Unavailable Neo Singh Unavailable Unavailable Arleen Hudson R Unavailable Irina Carcamo Unavailable Unavailable Maicol Fisher Unavailable Unavailable Apollo Lopes Unavailable Unavailable Neo Singh Unavailable Unavailable Unavailable Luis Moe Unavailable MD Neo Singh Primary Care Provider MD Apollo Lopes Attending Provider [phone] MD ANDREA HAWTHORNE Attending Unavailab le SamanthaNeo [facility] Unavailable LAVERTMadison, Dr. APOLLO Bowles Referring Unavailabl e LAVERTU, Dr. APOLLO Bowles Attending [facility]availabl [facility]available WIECEK, DR DONYA Gonzalez Admitting Unavailable WIECEK, DR DONYA Gonzalez Attending Unavailable WIECEK, DR DONYA Gonzalez Consulting Unavailable SAMANTHA, DR LARSON Primary Care Unavailable KRISTAN WATSON Consulting Unavailable SAMANTHA, DR LARSON Primary Care Unavailable SAMANTHA, DR LARSON Admitting Unavailable SAMANTHA, DR LARSON Attending Unavailable SAMANTHA, DR LARSON Consulting Unavailable ZIEBER, DR OBINNA Johnson Consulting Unavailable PAPITOEREAlex, DR ABILIO Iglesias Admitting Unavailable SAMANTHA, DR LARSON Primary Care Unavailable NADEREAlex, DR ABILIO Iglesias Attending Unavailable NADEREAlex, DR ABILIO Iglesias Consulting Unavailable MOISES SCHMIDT Consulting Unavailable ABBIE NEGRON Consulting Unavailable SISTER, MARCUS Consulting Unavailable Unavailable Primary Care Provider Unavailabl e PROVIDER, UNKNOWN Attending Unavailable PROVIDER, UNKNOWN Admitting Unavailable [facility] Provider Irina Wesley MD Unavailable MD Neo Singh Primary Care Provider DO Issa Salas Attending Provider Neo Singh Primary Care Unavailable Issa Salas Admitting Unavailable Issa Salas Attending Unavailable Tiffany Escobar Attending UnavailDeven Dale Unavailable Neo Singh Primary Care Unavailable Tiffany Escobar Admitting UnavailAPOLLO Newberry Attending Unavailable NEO SINGH Primary Care Unavailable NEO SINGH Attending Unavailable NEO SINGH Attending Unavailable NEO SINGH Attending Unavailable CLAIRE LYNCH Attending Unavailable Allergies Allergy Classification Reported Allergen(s) Allergy Type Date of Onset Reaction(s) Facility (4 sources) Latex rubber gloves; Translations: [Latex Gloves] Allergy to drug (finding) MG-Otolaryngol ogy-Ulman Work Phone: (5 sources) Latex; Translations: [latex] Allergy to substance 07-13-2015 Unknown [facility] Encounters Encounter Date Encounter Type Care Provider Facility Start: 05-21-2024 End: 05-21-2024 ambulatory CLAIRE LYNCH Not Available Start: 05-10-2024 End: 05-10-2024 ambulatory MD Neo Singh Work Phone: [facility] Work Phone: Start: 05-10-2024 End: 05-10-2024 Departed Referred MD Neo Singh Work Phone: [facility] Start: 04-30-2024 End: 04-30-2024 ambulatory NEO Gonzalez SAMANTHA Not Available Start: 01-29-2024 End: 01-29-2024 ambulatory NEO Gonzalez SAMANTHA Not Available Start: 12-18-2023 ambulatory Tiffany Escobar Fa cility:[facility] Start: 10-30-2023 End: 10-30-2023 ambulatory NEO HANSENA Not Available Start: 09-19-2023 End: 09-19-2023 Office outpatient visit 15 minutes Apollo Lopes MD Work Phone: [facility] Comment on above: 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); Acquired hypothyroidism; Oropharyngeal dysphagia Start: 09-19-2023 End: 09-19-2023 ambulatory [facility] Ambulatory Start: 01-16-2023 AUDIT Neo Singh Work Phone: [facility] Work Phone: Start: 12-28-2022 End: 01-22-2023 ambulatory [facility] Treat and Transport Start: 12-28-2022 End: 12-28-2022 [facility] department [facility] Comment on above: Arrived Start: 12-26-2022 End: 12-27-[address] NEO SINGH Facility:[facility]1 Start: 12-20-2022 Rx Renewal Neo Singh Work Phone: QV-Rtfgkltgnmzaur-Bdjml donna Work Phone: Start: 12-13-2022 End: 12-15-2022 Evaluation and management of inpatient DR ABILIO KAY Facility:[facility]1 Start: 09-30-2022 End: 09-30-2022 ambulatory MD Neo Singh Work Phone: [facility] Work Phone: Start: 09-30-2022 End: 09-30-2022 Patient encounter procedure MD Neo Singh Work Phone: [facility] [address] Start: 09-21-2022 Chart Update Neo Singh Work Phone: LX-Rmsillzjqgwggn-Ecgro donna Work Phone: Start: 09-20-2022 ambulatory MD ANDREA Goodman acility:[id number] Start: 09-20-2022 Office outpatient visit 15 minutes Neo Singh Work Phone: EK-Lzkhtxbzzgyhuj-Pngzw donna Work Phone: Start: 09-20-[address] APOLLO LOPES Fa cility:[id number] Start: 03-31-2022 End: 03-31-2022 ambulatory Luis Moe Other [facility] Other Start: 03-31-2022 Office outpatient visit 15 minutes Luis Moe [facility] V[facility] Surgery Start: 12-31-2021 End: 12-31-[address] DONYA PAREDES Facility: Start: 12-27-2021 Rx Renewal Rugen M Samantha Work Phone: UN-Bfymgforiwfpmr-Jnjpk [place] [address] Work Phone: Start: 09-23-2021 Chart Update Rugen M Marbury Work Phone: VN-Zorhblvdncxbny-Wtuic donna Work Phone: Start: 09-21-2021 Office outpatient visit 15 minutes Rugen M Samantha Work Phone: LI-Xzlkfqxfnobggk-Qrtwi donna Work Phone: Start: 08-16-2021 Rx Renewal Rugen M Samantha Work Phone: PW-Wuxsflkyzknnwc-Jvwzy ban Work Phone: Start: 07-06-2021 Office outpatient visit 15 minutes Rugen M Samantha Work Phone: UT-Sxetyohhmpmztk-Gvlao donna Work Phone: Start: 08-04-2020 Patient encounter procedure Apollo Lavaleydau CI-Sitmdqmzbgsirv-Jqydi ban Work Phone: Start: 07-23-2019 Patient encounter procedure Apollo Lopes HA-Mvmmhjjkzpnzvv-Xqrir donna Work Phone: Start: 01-22-2019 Patient encounter procedure Apollo Lopes DF-Hcrntwxtqwfzls-Qfzea donna Work Phone: Start: 08-21-2018 Patient encounter procedure Apollo GOLDKV-Hzgolpmzyszekb-Ajxbi donna Work Phone: Start: 08-07-2018 Patient encounter procedure Apollo GOLDCN-Rtuypzixiuqjdw-Cflyv donna Work Phone: Start: 07-10-2018 Patient encounter procedure Apollo GOLDJN-Fsozqcesbtrihc-Ojsgh donna Work Phone: Start: 01-09-2018 Patient encounter procedure Apollo GOLDKE-Iwisezurutgzsm-Nvury donna Work Phone: Immunizations Immunization Date Immunization Notes Care Provider Fa camryn 05-04-2020 pneumococcal conjuga te vaccine, 13 valent Apollo Lopes MD Work Phone: [facility] Work Phone: 12-16-2017 Seasonal trivalent influenza vaccine, adjuvanted, preservative free Apollo Lopes MD Work Phone: [facility] Work Phone: 12-16-2017 influenza virus vaccine, unspecified formulation Apollo Lopes MD Work Phone: [facility] Work Phone: Medications Current Medications Medication Drug Class(es) Dates Sig (Normalized) Sig (Original) [id number] 200 actuat albuterol 0.09 mg/actuat metered dose inhaler (1 source) beta2-Adrenergic Agonist albuterol 90 mcg/actuation inhaler Albuterol Sulfate HFA AERS Refills: 0 Active 0 Active ascorbic acid 500 mg chewable tablet (3 sources) Vitamin C Start: 05-23-2019 take 1 tablet by mouth once daily Ascorbic Acid (Vitamin C) (Vitamin C) 500 mg Tablet,Chewable Active 500 MG PO Daily May 23, 2019 12:00am Ascorbic Acid Ac tive aspirin 81 mg chewable tablet (10 sources) Platelet Aggregation Inhibitor, Nonsteroidal Anti-inflammatory Drug Start: 06-11-2020 aspirin 81 mg chewable tablet Chew 1 tablet (81 mg) once daily. 0 06/11/2020 Active atorvastatin 40 mg oral tablet (11 sources) HMG-CoA Reductase Inhibitor Start: 06-07-2021 take 1 tablet by mouth once daily atorvastatin (Lipitor) 40 mg tablet Take 1 tablet (40 mg) by mouth once daily. 0 06/07/2021 Active carvedilol 6.25 mg oral tablet (11 sources) alpha-Adrenergic Alena, beta-Adrenergic Alena Start: 06-01-2021 take 1 tablet by mouth twice daily carvedilol (Coreg) 6.25 mg tablet Take 1 tablet (6.25 mg) by mouth 2 times a day. 0 06/01/2021 Active doxepin hydrochloride 25 mg oral capsule (5 sources) Tricyclic Antidepressant Start: 04-18-2022 take 1 capsule by mouth once daily at bedtime doxepin (SINEquan) 25 mg capsule Take 1 capsule (25 mg) by mouth once daily at bedtime. 0 04/18/2022 Active ertugliflozin 15 mg oral tablet (1 source) take 1 tablet by mouth every twenty-four hours Steglatro 15 MG 1 tablet Orally Once a day Active 30 actuat fluticasone furoate 0.1 mg/actuat / umeclidinium 0.0625 mg/actuat / vilanterol 0.025 mg/actuat dry powder inhaler (1 source) Anticholinergic, Corticosteroid, beta2-Adrenergic Agonist take 1 puff(s) by inhalation once daily Trelegy Ellipta 100-62.5-25 MCG/INH 1 puff Inhalation Once a day Active FLUTICASONE-UMECLI DIN-VILANTER INHL (1 source) FLUTICASONE-UMEC LIDIN-VILANTER INHL Trelegy Ellipta AEPB Refills: 0 Active 0 Active Kuirk-Kl-7-Dha-Epa -Phospho-Ast (2 sources) Start: 11-30-2017 take 3 capsules by mouth once daily Cmari-Ie-7-Dha-E mg-Kfjwkya-Xll Active 1 CAP PO Daily November 30, 2017 1:00am Start: 11-30-2017 take 3 capsules by mouth once daily Fdiku-Bh-9-Urc-Vvm-Qwnbvaq-Ast Active 1 CAP PO Daily November 30, 2017 12:00am levothyroxine sodium 0.075 mg oral tablet (19 sources) l-Thyroxine Start: 08-22-2018 take 75 ug by mouth once daily Levothyroxine Active 75 MCG PO Daily January 10, 2019 1:00am Start: 11-30-2017 End: 01-10-2019 take 1 tablet by mouth once daily Levothyroxine (Synthroid) 50 mcg Tablet Discontinued 50 MCG PO Daily November 30, 2017 1:00am January 10, 2019 12:01pm take 1 tablet by jacky th once daily in the morning Levothyroxine Sodium 75 MCG 1 tablet in the morning on an empty stomach Orally Once a day Active lisinopril 20 mg oral tablet (2 sources) Angiotensin Converting Enzyme Inhibitor Start: 09-08-2020 take 1 tablet by mouth once daily lisinopril 20 mg tablet Take 1 tablet (20 mg) by mouth once daily. 0 09/08/2020 Active Magnesium (3 sources) Start: 05-23-2019 take 250 mg by mouth once daily Magnesium Active 250 MG PO Daily May 23, 2019 12:00am Start: 05-23-2019 take 250 mg by mouth once thuy y Magnesium Active 250 MG PO Daily May 22, 2019 11:00pm take 1 tablet by jacky th once daily MAGNESIUM ORAL Take 1 tablet by mouth once daily. 0 Active metFORMIN hydrochloride 500 mg oral tablet (12 sources) Biguanide Start: 07-14-2023 take 1 tablet by mouth once daily metFORMIN (Glucophage) 500 mg tablet Take 1 tablet (500 mg) by mouth once daily. 0 07/14/2023 Active Start: 04-29-2014 take 1000 mg by mouth once gabe ly Metformin Active 1000 MG PO Daily November 30, 2017 1:00am Start: 04-29-2014 metFORMIN HCl - 1000 MG Oral Tablet Quantity: 60 Refills: 0 Ordered: 29-Apr-2014 DO Start : 29-Apr-2014 Active Pseudoephedrine-Guaifenesin (Mucinex D) 60-600 mg Tablet Extended Release 12 Hr (2 sources) Start: 05-21-2021 take 1 tablet by mouth every twelve hours, then take 1 tablet by mouth every twelve hours Pseudoephedrine-Guaifenesin (Mucinex D) 60-600 mg Tablet Extended Release 12 Hr Active 1 TAB PO Q12H 60 May 21, 2021 12:00am Start: 05-21-2021 take 1 tablet by jacky th every twelve hours, then take 1 tablet by mouth every twelve hours Pseudoephedrine-Guaifenesin (Mucinex D) 60-600 mg Tablet Extended Release 12 Hr Active 1 TAB PO Q12H 60 May 20, 2021 11:00pm vitamin b12 0.5 mg oral tablet (2 sources) Vitamin B12 Start: 11-30-2017 take 500 ug by mouth once daily Cyanocobalamin (Vitamin B-12) Active 500 MCG PO Daily November 30, 2017 1:00am vitamin e 90 mg oral capsule (1 source) vitamin E acetat e 134 mg (200 unit) capsule Take 1 tablet by mouth. 0 Active Completed/Discontinued Medications Medication Drug Class(es) Dates Sig (Normalized) Sig (Original) acyclovir 400 mg oral tablet (5 sources) Herpesvirus Nucleoside Analog DNA Polymerase Inhibitor, Herpes Simplex Virus Nucleoside Analog DNA Polymerase Inhibitor, Herpes Zoster Virus Nucleoside Analog DNA Polymerase Inhibitor Start: 11-19-2020 take 1 tablet by mouth four times daily Acyclovir 400 MG Oral Tablet TAKE 1 TABLET BY MOUTH 4 TIMES A DAY FOR 5 DAYS Quantity: 20 Refills: 0 Ordered: 21-Nov-2020 DO Start : 19-Nov-2020 Active Albuterol Sulfate HFA AERS (4 sources) Albuterol Sulfate HFA AERS Quantity: 0 Refills: 0 Ordered: 20-Sep-2022 DO Active fluticasone furoate 0.0275 mg/actuat metered dose nasal spray (7 sources) Corticosteroid Start: 07-06-2021 Flonase Sensimist 27.5 MCG/SPRAY Nasal Suspension USE DIRECTED. Quantity: 0 Refills: 0 Ordered: 06-Jul-2021 DO Start : 06-Jul-2021 Active Start: 05-21-2021 Fluticasone Fu roate (Flonase Sensimist) 27.5 mcg/actuation [place],Suspension Active 1 SPRAY INTRANASAL Daily May 21, 2021 12:00am into each nostril dispense one bottle 12 hr guaiFENesin 600 mg / pseudoephedrine hydrochloride 60 mg extended release oral tablet (5 sources) alpha-Adrenergic Agonist Start: 05-21-2021 take 60-600 mg by mouth every twelve hours [facility] Mucus D Extended Release 60-600 MG Oral Tablet Extended Release 12 Hour TAKE 1 TABLET BY MOUTH EVERY 12 HOURS Quantity: 72 Refills: 0 Ordered: 21-May-2021 DO Start : 21-May-2021 Active hydroCHLOROthiazide 25 mg oral tablet (6 sources) Thiazide Diuretic Start: 12-11-2020 take 1 tablet by mouth once daily hydroCHLOROthiazide 25 MG Oral Tablet TAKE 1 TABLET BY MOUTH EVERY DAY Quantity: 90 Refills: 0 Ordered: 08-Jun-2021 DO Start : 11-Dec-2020 Active ondansetron 4 mg disintegrating oral tablet (5 sources) Serotonin-3 Receptor Antagonist Start: 11-19-2020 take 1 tablet by mouth every four hours as needed Ondansetron 4 MG Oral Tablet Disintegrating DISSOLVE 1 TABLET UNDER TONGUE EVERY 4 HOURS NEEDED Quantity: 20 Refills: 0 Ordered: 21-Nov-2020 DO Start : 19-Nov-2020 Active predniSONE 20 mg oral tablet (1 source) Start: 11-19-2020 take 1 tablet by mouth three times daily predniSONE 20 MG Oral Tablet TAKE 1 TABLET BY MOUTH THREE TIMES A DAY FOR 5 DAYS Quantity: 15 Refills: 0 Ordered: 21-Nov-2020 DO Start : 19-Nov-2020 Complete 12 hr pseudoephedrine hydrochloride 120 mg extended release oral tablet (2 sources) alpha-Adrenergic Agonist Start: 05-21-2021 End: 05-21-2021 take 1 tablet by mouth every twelve hours Pseudoephedrine Hcl (Sudafed 12 Hour) 120 mg Tablet Extended Release Discontinued 120 MG PO Q12H May 21, 2021 12:00am May 21, 2021 10:49am SITagliptin 100 mg oral tablet (6 sources) Dipeptidyl Peptidase 4 Inhibitor Start: 02-15-2021 take 1 tablet by mouth once daily Januvia 100 MG Oral Tablet TAKE 1 TABLET BY MOUTH EVERY DAY Quantity: 30 Refills: 0 Ordered: 13-Jun-2021 DO Start : 15-Feb-2021 Active Trelegy Ellipta AEPB (4 sources) Trelegy Ellipta AEPB Quantity: 0 Refills: 0 Ordered: 20-Sep-2022 DO Active Payers Date Payer Category Payer Unknown [id number] 2019 Medicare HU[employer]NA MEDICARE HU[employer] GOLD CHOICE [id number] 2019-Present [address] [address] [place] [address] [id number] 2017 Self-pay [id number] 1957 Medicare [id number] 1950 Unknown [id number] .356 1950 Unknown [id number] [id number] .356 1950 Unknown [id number] [id number] .593 1950 Unknown [id number] [id number] .593 1950 Unknown [id number] [id number] .593 1950 Unknown [id number] [id number] .732 1950 Unknown [id number] [id number] .1244 1950 Unknown [id number] 2.16.840.1.228784.3.579.2 .1259 1950 Unknown [id number] [id number] .1259 1950 Unknown [id number] 2.16.840.1.469163.3.579.2 .1259 1950 Unknown [id number] 2.16.840.1.368269.3.579.2 .1259 1950 Unknown [id number] [id number] .1259 Medicare Medicare [id number] Medicare Medicare [id number] Private Health Insurance [facility] [id number] Unknown Unknown [id number] [id number] .531 Unknown [id number] .531 Plan of Treatment Date Care Activity Detail Author Start: 09-17-2024 End: 09-17-2024 Patient encounter procedure 09/17/2024 4:30 PM EDT Office Visit [facility] [address] [place] [id number] [place] [id number] [place] [address] [facility] Start: 06-20-2024 Thyroid stimulating hormone measurement TSH Level [facility] Start: 09-19-2023 FUV, Provider: Apollo Lopes, Status: Pen, Time: 4:15 PM FUV, Provider: Apollo Lopes, Status: Pen, Time: 4:15 PM KH-Wxjnzcyskzxpgd-[place] Work Phone: Start: 07-28-2023 Influenza vaccination Influenza Vaccine (#1) [facility] Start: 09-20-2022 FUV, Provider: Apollo Lopes, Status: Pen, Time: 2:40 PM FUV, Provider: Apollo Lopes, Status: Pen, Time: 2:40 PM LC-Rgrfovohpnlxmx-Nkmr [place] Work Phone: Start: 08-27-2022 Influenza [facility] Start: 12-23-2021 COVID-19 Vaccine (4 - Pfizer series) COVID-19 Vaccine (4 - Pfizer series) [facility] Start: 09-21-2021 FUV, Provider: Apollo Lopes, Status: Pen, Time: 1:40 PM FUV, Provider: Apollo Lopes, Status: Pen, Time: 1:40 PM ZK-Fqegfjdfksfrfn-Ftqi [place] Work Phone: Start: 05-04-2021 Pneumococcal Vaccine: 65+ Years (2 - PPSV23 or PCV20) Pneumococcal Vaccine: 65+ Years (2 - PPSV23 or PCV20) [facility] Start: 02-10-2017 Pneumococcal vaccination Pneumococcal Vaccine(s) (65+ yrs) (1 - PCV) [facility] Start: 02-10-2002 Measurement of occult blood in single stool specimen FIT [facility] Start: 02-10-2002 Screening for malignant neoplasm of colon CRC Screening [facility] Start: 02-10-2002 Shingles (RZV) Vaccine (1 of 2) Shingles (RZV) Vaccine (1 of 2) [facility] Start: 02-10-2002 Zoster Vaccines (1 of 2) Zoster Vaccines (1 of 2) [facility] Start: 02-10-1987 Lipid panel Cholesterol [facility] Start: 02-10-1974 DTaP/Tdap/Td Vaccines (1 - Tdap) DTaP/Tdap/Td Vaccines (1 - Tdap) [facility] Start: 02-10-1970 Diabetes mellitus screening Diabetes Screening [facility] Start: 02-10-1970 Hepatitis C screening [facility] Start: 02-10-1970 Tetanus + diphtheria + acellular pertussis vaccine (product) Tdap Booster [facility] Start: 1950 COVID-19 Vaccine (#1) COVID-19 Vaccine (#1) [facility] Start: 1950 Lipid panel Lipid Panel [facility] Start: 1950 Medicare Annual Wellness Visit Medicare Annual Wellness Visit (AWV) [facility] Start: 1950 Screening for malignant neoplasm of colon [facility] Problems Active Problems Problem Classification Problem Date Documented Da te Episodic/Chronic Acute myocardial infarction (1 source) Non-ST elevation (NSTEMI) myocardial infarction; Translations: [NON-ST ELEVATION MYOCARDIAL INFARCT] Onset: 3 Chronic Cancer of head and neck (20 sources) Malignant tumor of anterior two-thirds of tongue; Translations: [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, part unspecified] Onset: 2 07-05-2018 Chronic Cancer of head and neck (2 sources) Personal history of malignant neoplasm of unspecified site of lip, oral cavity, and pharynx; Translations: [Personal history of malignant neoplasm of tongue] Onset: 2 Episodic Cancer; other and unspecified primary (13 sources) H/O: malignant neoplasm; Translations: [Personal history of unspecified malignant neoplasm] Episodic Conditions associated with dizziness or vertigo (1 source) Lightheadedness; Translations: [Dizziness and giddiness] Episodic Coronary atherosclerosis and other heart disease (1 source) Atherosclerotic heart disease of [place] coronary artery without angina pectoris; Translations: [ASHD [place] CA W/O ANGINA PECTORIS] Onset: 3 Chronic Deficiency and other anemia (2 sources) Anemia; Translations: [Anemia, unspecified] 05-21-2021 Episodic Diabetes mellitus with complications (1 source) Type 2 diabetes mellitus with hyperglycemia; Translations: [TYPE 2 DM W/HYPERGLYCEMIA] Onset: 3 Chronic Diabetes mellitus without complication (1 source) Type 2 diabetes mellitus without complications; Translations: [TYPE 2 DM WITHOUT COMPLICATIONS] Onset: 2 Chronic Disorders of lipid metabolism (15 sources) Hypercholesterolemia; Translations: [Pure hypercholesterolemia] Onset: 2 Chronic Diverticulosis and diverticulitis (1 source) Diverticulosis of large intestine without perforation or abscess without bleeding; Translations: [DVRTCLOS LG INT NO PERF/ABSC W/O BL] Onset: 2 Chronic Menopausal disorders (1 source) Hormone replacement therapy; Translations: [HORMONE REPLACEMENT THERAPY] Onset: 3 Episodic Occlusion or stenosis of precerebral arteries (2 sources) Right carotid artery stenosis; Translations: [Occlusion and stenosis of right carotid artery] Onset: 2 Resolved: 2 Chronic Other aftercare (1 source) Other shelter (current) drug therapy; Translations: [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] Onset: 3 Episodic Other aftercare (1 source) group home (current) use of aspirin; Translations: [SHELTER CURRENT USE OF ASPIRIN] Onset: 3 Episodic Other circulatory disease (13 sources) H/O: hypertension; Translations: [Personal history of other diseases of circulatory system] Episodic Other connective tissue disease (13 sources) H/O: arthritis; Translations: [Personal history of arthritis] Episodic Other gastrointestinal disorders (14 sources) Dysphagia; Translations: [Dysphagia, unspecified] Onset: 3 08-20-2023 Episodic Other gastrointestinal disorders (13 sources) Personal history of other diseases of the digestive system; Translations: [History of gastroesophageal reflux disease] Episodic Other gastrointestinal disorders (1 source) Oropharyngeal dysphagia; Translations: [Dysphagia, oropharyngeal phase] 09-19-2023 Episodic Other injuries and conditions due to external causes (14 sources) Radiation injury; Translations: [Effects of radiation, unspecified] Onset: 3 08-20-2023 Episodic Other lower respiratory disease (13 sources) H/O: bronchitis; Translations: [Personal history of other diseases of respiratory system] Episodic Other lower respiratory disease (13 sources) Snoring; Translations: [Other respiratory abnormalities] Episodic Other lower respiratory disease (1 source) Hypoxia; Translations: [Hypoxemia] Episodic Other non-epithelial cancer of skin (3 sources) Malignant neoplasm of scalp; Translations: [Unspecified malignant neoplasm of skin of scalp and neck] Onset: 2 07-05-2018 Episodic Other nutritional; endocrine; and metabolic disorders (13 sources) H/O: diabetes mellitus; Translations: [Personal history of other endocrine, metabolic, and immunity disorders] Episodic Other screening for suspected conditions (not mental disorders or infectious disease) (3 sources) Imaging of thorax abnormal; Translations: [Nonspecific (abnormal) findings on radiological and other examination of other intrathoracic organs] Onset: 3 08-20-2023 Chronic Other screening for suspected conditions (not mental disorders or infectious disease) (14 sources) Encounter for observation for other suspected diseases and conditions ruled out; Translations: [Suspected malignancy] Onset: 3 08-20-2023 Episodic Other skin disorders (14 sources) Lesion of scalp; Translations: [Unspecified disorder of skin and subcutaneous tissue] Onset: 3 08-20-2023 Episodic Other skin disorders (14 sources) Skin lesion; Translations: [Unspecified disorder of skin and subcutaneous tissue] Onset: 3 08-20-2023 Episodic Other upper respiratory disease (10 sources) Bleeding from nose; Translations: [Epistaxis] Onset: 3 08-20-2023 Episodic Other upper respiratory disease (2 sources) Congestion of nasal sinus; Translations: [Nasal congestion] 05-21-2021 Episodic Pneumonia (except that caused by tuberculosis or sexually transmitted disease) (4 sources) Pneumonia, unspecified organism; Translations: [PNEUMONIA UNSPECIFIED ORGANISM] Onset: 3 Episodic Pneumonia (except that caused by tuberculosis or sexually transmitted disease) (1 source) Pneumonia (except that caused by tuberculosis or sexually transmitted disease); Translations: [PNEUMONIA D/T CORONAVIRUS DIS 2019] Onset: 3 Screening and history of mental health and substance abuse codes (13 sources) H/O: depression; Translations: [Personal history of other mental disorders] Episodic Secondary malignancies (1 source) Secondary malignant neoplasm of unspecified lung; Translations: [Secondary malignant neoplasm of unspecified lung] Onset: 2 Chronic Septicemia (except in labor) (1 source) Other specified sepsis; Translations: [OTHER SPECIFIED SEPSIS] Onset: 3 Episodic Shock (1 source) Severe sepsis with septic shock; Translations: [SEVERE SEPSIS WITH SEPTIC SHOCK] Onset: 3 Episodic Thyroid disorders (19 sources) Acquired hypothyroidism; Translations: [Unspecified acquired hypothyroidism] Onset: 3 05-25-2018 Chronic Thyroid disorders (13 sources) Disorder of thyroid gland; Translations: [Unspecified disorder of thyroid] Episodic Unclassified (1 source) 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, part unspecified; Translations: [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, part unspecified] Onset: 4 Viral infection (3 sources) COVID-19; Translations: [COVID-19] Onset: 3 Past or Other Problems Problem Classification Problem Date Documented Da te Episodic/Chronic Deficiency and other anemia (4 sources) Iron deficiency anemia, unspecified; Translations: [IRON DEFICIENCY ANEMIA UNSPECIFIED] Onset: 12-31-2021 Episodic Gastritis and duodenitis (1 source) Gastritis, unspecified, without bleeding; Translations: [GASTRITIS UNS WITHOUT BLEEDING] Onset: 01-10-2022 Episodic Other gastrointestinal disorders (2 sources) Dysphagia, oropharyngeal phase; Translations: [Dysphagia, oropharyngeal phase] Onset: 08-20-2023 Episodic NEGATED: Highlighted row has not occurred!Residual codes; unclassified (20 sources) Disease Episodic Procedures Date Procedure Procedure Detail Performing Clinician Start: 06-20-2023 Thyrotropin [Units/v olume] in Serum or Plasma Apollo Lopes MD Work Phone: Start: 09-30-2022 CT of chest without contrast MD Neo Singh Work Phone: History of Breast Surgery Pi erre Parker History of Circumcis ion No Clamp/Device/Dorsal Slit Older Than 28 Days Apollo Lopes History of [place] er Surgery Apollo Lopes History of Wound Car e Debridement Non-Selective Apollo Lopes Results Test Name Value Interpretation Reference Range Facility [facility] 05-10-2024 L Specimen: [id number] Received: 05/10/24 Status: MOSHE Escobar Num: [id number] Spec Type: Surgical Subm Dr: Issa Salas DO Tissues: A Stomach - Biopsy/Polyp (ANTRUM) B Esophagus Biopsy (DISTAL ESOPH) C Esophagus Biopsy (MID ESOPH) D Colon Biopsy (HEPATIC FLEXURE) Procedures: PAS - LGRN, HE/8, Gross/Micro L4/4, H PYLORI Age/ Patient Sex Location Account Attending Physician Roxann Rm 74/M LABELL [id number] Issa Salas DO SPEC NUM: [id number] RECD: 05/10/24 STATUS: MARIBELLLuan ESCOBAR NUM: [id number] NINA: 05/10/[address]: Issa Salas DO ENTERED: 05/10/[address] [facility] DR: Blake Crouch SPEC TYPE: Surgical DEPT: JANETT AGUILA ORDERED: PAS - LGRN, HE/8, Gross/Micro L4/4, H PYLORI ORDERED: PAS - LGRN, HE/8, Gross/Micro L4/4, H PYLORI Pathological Diagnosis A, antrum biopsy: -Antral to oxyntic mucosa with mild inactive chronic gastritis, including incidental rare goblet cell change without erosion or glandular atypia identified -H. pylori immunostain with appropriate control is negative for identified Helicobacter organism B, distal esophagus biopsy: -Esophageal squamous mucosa with focal erosive esophagitis -PASF special stain is positive for identified fungal elements (few spores and occasional tiny pseudohyphae) consistent with [place] esophagitis C, mid esophagus biopsy: -Benign esophageal squamous mucosa with mild squamous acanthosis and occasional lymphocytic exocytosis without eosinophilic exocytosis D, hepatic flexure colon mass biopsy: -Multiple fragments of adenomatous polyp with focal high-grade features, and is also suspicious for stromal invasion in at least 1 fragment Specimen: [id number] Received: 05/10/24 Status: MOSHE Escobar Num: [id number] Spec Type: Surgical Subm Dr: Issa Salas DO Tissues: A Stomach - Biopsy/Polyp (ANTRUM) B Esophagus Biopsy (DISTAL ESOPH) C Esophagus Biopsy (MID ESOPH) D Colon Biopsy (HEPATIC FLEXURE) Procedures: PAS - SHOAIBN, HE/8, Gross/Micro L4/4, H PYLORI Patient: Roxann Rm [id number] (Continued) Specimen: [id number] Received: 05/10/24 (Continued) Signed (signature on file) Hilda Thakkar MD 05/14/24 1657 Specimen: [id number] Received: 05/10/24 Status: MOSHE Escobar Num: [id number] Spec Type: Surgical Subm Dr: Issa Salas, Tissues: A Stomach - Biopsy/Polyp (ANTRUM) B Esophagus Biopsy (DISTAL ESOPH) C Esophagus Biopsy (MID ESOPH) D Colon Biopsy (HEPATIC FLEXURE) Procedures: KAELA ARRIAGA, ROSA/Arnulfo, Gross/Micro L4/4, H PYLORI Patient: Roxann Rm [id number] (Continued) Specimen: [id number] Received: 05/10/24 (Continued) Clinical Information Anemia, melena, right colon mass, erosive esophagitis. Gross Description Received are 4 formalin filled containers each labeled with the patient's name, date of and specific specimen site. A. Further labeled antrum are 2 reynolds mucosal tissue fragments each measuring 0.3 x 0.3 x 0.1 cm, entirely submitted in A1. B. Further labeled distal esophagus are 2 reynolds mucosal tissue fragments measuring 0.3 x 0.2 x 0.1 cm and 0.2 x 0.1 x 0.1 cm, entirely submitted in B1. C. Further labeled midesophagus is a 0.4 x 0.2 x 0.1 cm reynolds mucosal tissue fragment, entirely submitted in C1. D. Further labeled hepatic flexure are multiple reynolds mucosal tissue fragments measuring in aggregate 1.2 x 0.4 x 0.1 cm, entirely submitted in D1. CPT Codes [id number] [id number] Specimen: [id number] Received: 05/10/24 Status: MOSHE Escobar Num: [id number] Spec Type: Surgical Subm Dr: Issa Salas DO Tissues: A Stomach - Biopsy/Polyp (ANTRUM) B Esophagus Biopsy (DISTAL ESOPH) C Esophagus Biopsy (MID ESOPH) D Colon Biopsy (HEPATIC FLEXURE) Procedures: PAS - LGRN, HE/8, Gross/Micro L4/4, H PYLORI Patient: Roxann [id number] (Continued) Signed (signature on file) Alicia (more content not included)... Normal [facility] Complete Blood Count Auto Di ffon 12-18-2023 Basophils (Bld) [#/Vol] 0.0 10*3/uL Normal 0.0-0.2 [facility] Comment on above: Result Comment: PERF ORMED BY: [place] [address] PATHOLOGIST DIRECTOR OF MATERIALS MANAGEMENT PABLO ZHAO M.D. Performed By: #### C JESE TSH3, CMP #### [address] Basophils/100 WBC (Bld) 0.4 % Normal . [facility] Comment on above: Performed By: #### C JESE TSH3, CMP #### [address] Eosinophils (Bld) [#/Vol] 0.5 10*3/uL High 0.0-0.45 [facility] Comment on above: Performed By: #### C JESE TSH3, CMP #### [address] Eosinophils/100 WBC (Bld) 9.0 % Normal . [facility] Comment on above: Performed By: #### C JESE TSH3, CMP #### [address] Erythrocyte distribution width (RBC) [Ratio] 15.8 % High 12.0-14.8 [facility] Comment on above: Performed By: #### C LYNN SAWANT3, CMP #### [address] Hematocrit (Bld) [Volume fraction] 35.1 % Low 38.8-50.0 [facility] Comment on above: Performed By: #### C BC, TSH3, CMP #### [address] Hemoglobin (Bld) [Mass/Vol] 11.6 g/dL Low 13.0-17.0 [facility] Comment on above: Performed By: #### C BC, TSH3, CMP #### [address] Lymphocytes (Bld) [#/Vol] 1.3 10*3/uL Normal 1.00-4.8 [facility] Comment on above: Performed By: #### C BC, TSH3, CMP #### [address] Lymphocytes/100 WBC (Bld) 21.7 % Normal . [facility] Comment on above: Performed By: #### C BC, TSH3, CMP #### [address] MCH (RBC) [Entitic mass] 32.2 pg Normal 27.5-35.2 [facility] Comment on above: Performed By: #### C BC, TSH3, CMP #### [address] MCV (RBC) [Entitic vol] 97.0 fL Normal 83.5-101 [facility] Comment on above: Performed By: #### C BC, TSH3, CMP #### [address] Mean Corpuscular HGB Conc 33.2 g/dL Normal 32.5-35.6 [facility] Comment on above: Performed By: #### C BC, TSH3, CMP #### [address] Monocytes (Bld) [#/Vol] 0.5 10*3/uL Normal 0.0-0.8 [facility] Comment on above: Performed By: #### C BC, TSH3, CMP #### [facility] [address] Monocytes/100 WBC (Bld) 8.2 % Normal . [facility] Comment on above: Performed By: #### C BC, TSH3, CMP #### [address] Neutrophils (Bld) [#/Vol] 3.5 10*3/uL Normal 1.8-7.7 [facility] Comment on above: Performed By: #### C BC, TSH3, CMP #### [address] Neutrophils/100 WBC (Bld) 60.7 % Normal . [facility] Comment on above: Performed By: #### C BC, TSH3, CMP #### [address] NRBC% 0.0 /100{WBC} Normal 0-0.[address] [facility] Comment on above: Performed By: #### C BC, TSH3, CMP #### [address] Platelet mean volume (Bld) [Entitic vol] 7.0 fL Normal 6.6-10.1 [facility] Comment on above: Performed By: #### C BC, TSH3, CMP #### [facility] [address] [place] [address] [place] Platelets (Bld) [#/Vol] 196 10*3/uL Normal 150-450 [facility] Comment on above: Performed By: #### C BC, TSH3, CMP #### [place] [address] [place] RBC (Bld) [#/Vol] 3.61 10*6/uL Low 3.90-5.60 [facility] Comment on above: Performed By: #### C BC, TSH3, CMP #### [place] [address] [place] WBC (Bld) [#/Vol] 5.8 10*3/uL Normal 4.1-10.5 [facility] Comment on above: Performed By: #### C JESE TSH3, CMP #### [address] Diff and CBCon 09-21-2023 Acanthocytes Slight Normal [facility] Comment on above: Performed By: #### C JESE TSH3, CMP #### [address] Anisocytosis Ql (Bld) Slight Normal [facility] Comment on above: Performed By: #### C JESE TSH3, CMP #### [address] Eosinophils/100 WBC (Bld) 6 % High 1-3 [facility] Comment on above: Performed By: #### C JESE TSH3, CMP #### [address] Erythrocyte distribution width (RBC) [Ratio] 19.3 % High 12.0-14.8 [facility] Comment on above: Performed By: #### C JESE TSH3, CMP #### [address] Hematocrit (Bld) [Volume fraction] 34.2 % Low 38.8-50.0 [facility] Comment on above: Performed By: #### C EJSE TSH3, CMP #### [address] Hemoglobin (Bld) [Mass/Vol] 11.1 g/dL Low 13.0-17.0 [facility] Comment on above: Performed By: #### C JESE TSH3, CMP #### [address] Lymphocytes/100 WBC (Bld) 31 % Normal 18-42 [facility] Comment on above: Performed By: #### C JESE TSH3, CMP #### [address] MCH (RBC) [Entitic mass] 30.5 pg Normal 27.5-35.2 [facility] Comment on above: Performed By: #### C BC, TSH3, CMP #### [address] MCV (RBC) [Entitic vol] 93.9 fL Normal 83.5-101 [facility] Comment on above: Performed By: #### C BC, TSH3, CMP #### [address] Mean Corpuscular HGB Conc 32.5 g/dL Normal 32.5-35.6 [facility] Comment on above: Performed By: #### C BC, TSH3, CMP #### [address] Microcytosis Slight Normal [facility] Comment on above: Performed By: #### C BC, TSH3, CMP #### [address] Monocytes/100 WBC (Bld) 6 % Normal 2-11 [facility] Comment on above: Performed By: #### C BC, TSH3, CMP #### [address] Ovalocytes Slight Normal [facility] Comment on above: Performed By: #### C BC, TSH3, CMP #### [address] Platelet Estimate Decreased Normal Normal [facility] Comment on above: Performed By: #### C BC, TSH3, CMP #### [address] Platelet mean volume (Bld) [Entitic vol] 6.9 fL Normal 6.6-10.1 [facility] Comment on above: Performed By: #### C BC, TSH3, CMP #### [address] Platelet Morphology Normal Normal Normal [facility] Comment on above: Result Comment: PERF ORMED BY: [place] [address] PATHOLOGIST DIRECTOR OF MATERIALS MANAGEMENT PABLO ZHAO M.D. Performed By: #### C BC, TSH3, CMP #### [address] Platelets (Bld) [#/Vol] 134 10*3/uL Low 150-450 [facility] Comment on above: Performed By: #### C BC, TSH3, CMP #### [address] Poikilocytosis Slight Normal [facility] Comment on above: Performed By: #### C BC, TSH3, CMP #### [address] Polychromasia Slight Normal [facility] Comment on above: Performed By: #### C BC, TSH3, CMP #### [address] RBC (Bld) [#/Vol] 3.65 10*6/uL Low 3.90-5.60 [facility] Comment on above: Performed By: #### C BC, TSH3, CMP #### [address] Schistocytes Slight Normal [facility] Comment on above: Performed By: #### C BC, TSH3, CMP #### [address] Segmented neutrophils/100 WBC (Bld) 58 % Normal 50-70 [facility] Comment on above: Performed By: #### C BC, TSH3, CMP #### [address] WBC (Bld) [#/Vol] 3.5 10*3/uL Low 4.1-10.5 [facility] Comment on above: Performed By: #### C BC, TSH3, CMP #### [address] Complete Blood Count Auto Di ffon 06-21-2023 Basophils (Bld) [#/Vol] 0.0 10*3/uL Normal 0.0-0.2 [facility] Comment on above: Performed By: #### R ETIC, CMP, [id number], FE and TIBC, LDH, HAPT, CBC #### [address] #### CU #### [facility] , Basophils/100 WBC (Bld) 1.0 % Normal . [facility] Comment on above: Performed By: #### R ETIC, CMP, [id number], FE and TIBC, LDH, HAPT, CBC #### [place] [address] [place] #### CU #### [facility] , Eosinophils (Bld) [#/Vol] 0.3 10*3/uL Normal 0.0-0.45 [facility] Comment on above: Performed By: #### R ETIC, CMP, [id number], FE and TIBC, LDH, HAPT, CBC #### [address] #### CU #### [facility] , Eosinophils/100 WBC (Bld) 7.9 % Normal . [facility] Comment on above: Performed By: #### R ETIC, CMP, [id number], FE and TIBC, LDH, HAPT, CBC #### [place] [address] [place] #### CU #### [facility] , Erythrocyte distribution width (RBC) [Ratio] 19.1 % High 12.0-14.8 [facility] Comment on above: Performed By: #### R ETIC, CMP, [id number], FE and TIBC, LDH, HAPT, CBC #### [place] [address] [place] #### CU #### [facility] , Hematocrit (Bld) [Volume fraction] 31.5 % Low 38.8-50.0 [facility] Comment on above: Performed By: #### R ETIC, CMP, [id number], FE and TIBC, LDH, HAPT, CBC #### [place] [address] [place] #### CU #### [facility] , Hemoglobin (Bld) [Mass/Vol] 9.7 g/dL Low 13.0-17.0 [facility] Comment on above: Performed By: #### R ETIC, CMP, [id number], FE and TIBC, LDH, HAPT, CBC #### [address] #### CU #### [facility] , Lymphocytes (Bld) [#/Vol] 1.0 10*3/uL Normal 1.00-4.8 [facility] Comment on above: Performed By: #### R ETIC, CMP, [id number], FE and TIBC, LDH, HAPT, CBC #### [address] #### CU #### [facility] , Lymphocytes/100 WBC (Bld) 26.4 % Normal . [facility] Comment on above: Performed By: #### R ETIC, CMP, [id number], FE and TIBC, LDH, HAPT, CBC #### [place] [address] [place] #### CU #### [facility] , MCH (RBC) [Entitic mass] 23.9 pg Low 27.5-35.2 [facility] Comment on above: Performed By: #### R ETIC, CMP, [id number], FE and TIBC, LDH, HAPT, CBC #### [place] [address] [place] #### CU #### [facility] , MCV (RBC) [Entitic vol] 78.1 fL Low 83.5-101 [facility] Comment on above: Performed By: #### R ETIC, CMP, [id number], FE and TIBC, LDH, HAPT, CBC #### [place] [address] [place] #### CU #### [facility] , Mean Corpuscular HGB Conc 30.6 g/dL Low 32.5-35.6 [facility] Comment on above: Performed By: #### R ETIC, CMP, [id number], FE and TIBC, LDH, HAPT, CBC #### [place] [address] [place] #### CU #### [facility] , Monocytes (Bld) [#/Vol] 0.5 10*3/uL Normal 0.0-0.8 [facility] Comment on above: Performed By: #### R ETIC, CMP, [id number], FE and TIBC, LDH, HAPT, CBC #### [place] [address] [place] #### CU #### [facility] , Monocytes/100 WBC (Bld) 12.1 % Normal . [facility] Comment on above: Performed By: #### R ETIC, CMP, [id number], FE and TIBC, LDH, HAPT, CBC #### [place] [address] [place] #### CU #### [facility] , Neutrophils (Bld) [#/Vol] 2.0 10*3/uL Normal 1.8-7.7 [facility] Comment on above: Performed By: #### R ETIC, CMP, [id number], FE and TIBC, LDH, HAPT, CBC #### [place] [address] [place] #### CU #### [facility] , Neutrophils/100 WBC (Bld) 52.6 % Normal . [facility] Comment on above: Performed By: #### R ETIC, CMP, [id number], FE and TIBC, LDH, HAPT, CBC #### [address] #### CU #### [facility] , NRBC% 0.4 /100{WBC} Normal 0-0.[address] [facility] Comment on above: Performed By: #### R ETIC, CMP, [id number], FE and TIBC, LDH, HAPT, CBC #### [address] #### CU #### [facility] , Platelet mean volume (Bld) [Entitic vol] 7.1 fL Normal 6.6-10.1 [facility] Comment on above: Performed By: #### R ETIC, CMP, [id number], FE and TIBC, LDH, HAPT, CBC #### [address] #### CU #### [facility] , Platelets (Bld) [#/Vol] 191 10*3/uL Normal 150-450 [facility] Comment on above: Performed By: #### R ETIC, CMP, [id number], FE and TIBC, LDH, HAPT, CBC #### [address] #### CU #### [facility] , RBC (Bld) [#/Vol] 4.04 10*6/uL Normal 3.90-5.60 [facility] Comment on above: Performed By: #### R ETIC, CMP, [id number], FE and TIBC, LDH, HAPT, CBC #### [place] [address] [place] #### CU #### [facility] , WBC (Bld) [#/Vol] 3.8 10*3/uL Low 4.1-10.5 [facility] Comment on above: Performed By: #### R ETIC, CMP, [id number], FE and TIBC, LDH, HAPT, CBC #### [place] [address] [place] #### CU #### [facility] , Comprehensive Metabolic Pane oleg 06-21-2023 Albumin [Mass/Vol] 4.1 g/dL Normal 3.5-5.7 [facility] Comment on above: Performed By: #### R ETIC, CMP, [id number], FE and TIBC, LDH, HAPT, CBC #### [place] [address] [place] #### CU #### [facility] , Albumin/Globulin [Mass ratio] 1.3 {ratio} Normal [facility] Comment on above: Performed By: #### R ETIC, CMP, [id number], FE and TIBC, LDH, HAPT, CBC #### [place] [address] [place] #### CU #### [facility] , ALP [Catalytic activity/Vol] 69 U/L Normal 34-104 [facility] Comment on above: Performed By: #### R ETIC, CMP, [id number], FE and TIBC, LDH, HAPT, CBC #### [place] [address] [place] #### CU #### [facility] , ALT [Catalytic activity/Vol] 9 U/L Normal 7-52 [facility] Comment on above: Performed By: #### R ETIC, CMP, [id number], FE and TIBC, LDH, HAPT, CBC #### [facility] [address] [place] [address] [place] #### CU #### [facility] , Anion gap [Moles/Vol] 12.2 mmol/L Normal 6.0-15.0 [facility] Comment on above: Performed By: #### R ETIC, CMP, [id number], FE and TIBC, LDH, HAPT, CBC #### [place] [address] [place] #### CU #### [facility] , AST [Catalytic activity/Vol] 14 U/L Normal 13-39 [facility] Comment on above: Performed By: #### R ETIC, CMP, [id number], FE and TIBC, LDH, HAPT, CBC #### [place] [address] [place] #### CU #### [facility] , Bilirubin [Mass/Vol] 0.5 mg/dL Normal 0.3-1.0 [facility] Comment on above: Performed By: #### R ETIC, CMP, [id number], FE and TIBC, LDH, HAPT, CBC #### [place] [address] [place] #### CU #### [facility] , Calcium [Mass/Vol] 9.5 mg/dL Normal 8.6-10.3 [facility] Comment on above: Performed By: #### R ETIC, CMP, [id number], FE and TIBC, LDH, HAPT, CBC #### [address] #### CU #### [facility] , Chloride [Moles/Vol] 100 mmol/L Normal 98-107 [facility] Comment on above: Performed By: #### R ETIC, CMP, [id number], FE and TIBC, LDH, HAPT, CBC #### [place] [address] [place] #### CU #### [facility] , CO2 [Moles/Vol] 32.6 mmol/L High 21.0-31.0 [facility] Comment on above: Performed By: #### R ETIC, CMP, [id number], FE and TIBC, LDH, HAPT, CBC #### [place] [address] [place] #### CU #### [facility] , Creatinine [Mass/Vol] 1.03 mg/dL Normal 0.70-1.30 [facility] Comment on above: Performed By: #### R ETIC, CMP, [id number], FE and TIBC, LDH, HAPT, CBC #### [place] [address] [place] #### CU #### [facility] , Creatinine Clr Calc Pharmacy 59.93 Normal [facility] Comment on above: Performed By: #### R ETIC, CMP, [id number], FE and TIBC, LDH, HAPT, CBC #### [place] [address] [place] #### CU #### [facility] , GFR/1.73 sq M.predicted MDRD (S/P/Bld) [Vol rate/Area] mL/min/{1.73_m2} Normal [facility] Comment on above: Performed By: #### R ETIC, CMP, [id number], FE and TIBC, LDH, HAPT, CBC #### [place] [address] [place] #### CU #### [facility] , Globulin (S) [Mass/Vol] 3.1 g/dL Normal [facility] Comment on above: Performed By: #### R ETIC, CMP, [id number], FE and TIBC, LDH, HAPT, CBC #### [place] [address] [place] #### CU #### [facility] , Glucose [Mass/Vol] 127 mg/dL High 70-100 [facility] Comment on above: Result Comment: [place] Glucose Reference Range is dependent on time and content of last meal. Glucose of more than 200 mg/dL in a nonstressed, ambulatory subject supports the diagnosis of Diabetes Mellitus. ADA recommended reference range Performed By: #### R ETIC, CMP, [id number], FE and TIBC, LDH, HAPT, CBC #### [place] [address] [place] #### CU #### [facility] , Potassium [Moles/Vol] 3.8 mmol/L Normal 3.5-5.1 [facility] Comment on above: Performed By: #### R ETIC, CMP, [id number], FE and TIBC, LDH, HAPT, CBC #### [address] #### CU #### [facility] , Protein [Mass/Vol] 7.2 g/dL Normal 6.4-8.9 [facility] Comment on above: Performed By: #### R ETIC, CMP, [id number], FE and TIBC, LDH, HAPT, CBC #### [address] #### CU #### [facility] , Sodium [Moles/Vol] 141 mmol/L Normal 136-145 [facility] Comment on above: Performed By: #### R ETIC, CMP, [id number], FE and TIBC, LDH, HAPT, CBC #### [place] [address] [place] #### CU #### [facility] , Urea nitrogen [Mass/Vol] 16 mg/dL Normal 7-25 [facility] Comment on above: Performed By: #### R ETIC, CMP, [id number], FE and TIBC, LDH, HAPT, CBC #### [place] [address] [place] #### CU #### [facility] , Copperon 06-21-2023 Copper 128 ug/dL Normal 69-132 [facility] Comment on above: Result Comment: This test was developed and its performance characteristics determined by [facility]. It has not been cleared or approved by the Food and Drug Administration. Detection Limit = 5 Performed at: [facility] [address] [id number] Health Science Writer: Haja Schmitt MD, Phone: [phone] PERFORMED BY: [place] [address] PATHOLOGIST DIRECTOR OF MATERIALS MANAGEMENT PABLO ZHAO M.D. Performed By: #### C BC, TSH3, CMP #### [address] Ferritinon 06-21-2023 Ferritin [Mass/Vol] 59.0 ng/mL Normal 23.9-336.2 [facility] Comment on above: Order Comment: Comme nt on blood already drawn Result Comment: PERF ORMED BY: [place] [address] PATHOLOGIST DIRECTOR OF MATERIALS MANAGEMENT PABLO ZHAO M.D. Performed By: #### C BC, TSH3, CMP #### [address] Haptoglobinon 06-21-2023 Haptoglobin 332 mg/dL High 44-215 [facility] Comment on above: Result Comment: PERF ORMED BY: [place] [address] PATHOLOGIST DIRECTOR OF MATERIALS MANAGEMENT PABLO ZHAO M.D. Performed By: #### R ETIC, CMP, [id number], FE and TIBC, LDH, HAPT, CBC #### [address] #### CU #### [facility] , Iron and TIBC Profileon 05-28 % Iron Saturation 8.0 % Low 20-50 [facility] Comment on above: Performed By: #### C BC, TSH3, CMP #### [address] Iron [Mass/Vol] 38 ug/dL Low 50-212 [facility] Comment on above: Performed By: #### C BC, TSH3, CMP #### [address] Total Iron Binding Capacity 475 ug/dL High 255-450 [facility] Comment on above: Performed By: #### C BC, TSH3, CMP #### [address] Transferrin [Mass/Vol] 339 mg/dL Normal 203-362 [facility] Comment on above: Performed By: #### C BC, TSH3, CMP #### [address] LDH Lactate Dehydrogenaseon 06-21-2023 LDH Lactate Dehydrogenase 139 U/L Low 140-271 [facility] Comment on above: Performed By: #### R ETIC, CMP, [id number], FE and TIBC, LDH, HAPT, CBC #### [address] #### CU #### [facility] , Reticulocyte Counton 023 Reticulocyte Number 0.065 10*6/uL Normal 0.024-0.084 [facility] Comment on above: Result Comment: PERF ORMED BY: [place] [address] PATHOLOGIST DIRECTOR OF MATERIALS MANAGEMENT PABLO ZHAO M.D. Performed By: #### R ETIC, CMP, [id number], FE and TIBC, LDH, HAPT, CBC #### [address] #### CU #### [facility] , Reticulocyte Percent 1.6 % High 0.5-1.5 [facility] Comment on above: Performed By: #### R ETIC, CMP, [id number], FE and TIBC, LDH, HAPT, CBC #### [address] #### CU #### [facility] , Stool Occult Blood (Guaiac)o n 06-21-2023 Stool Occult Blood (Guaiac) Occult Blood Negative for Occult Blood by Guaiac Methodology -------- Reference range = Negative PERFORMED BY: [place] [address] PATHOLOGIST DIRECTOR OF MATERIALS MANAGEMENT PABLO ZHAO M.D. Normal [facility] Comment on above: Performed By: #### O B(GUAIAC) #### [address] Urinalysison 06-21-2023 Appearance (U) Clear Normal Clear [facility] Comment on above: Order Comment: Name Collection Type:: Voided Performed By: #### C BC, TSH3, CMP #### [address] Bilirubin,Urine Negative Normal Negative [facility] Comment on above: Order Comment: Name Collection Type:: Voided Performed By: #### C BC, TSH3, CMP #### [address] Color (U) Yellow Normal Yellow [facility] Comment on above: Order Comment: Name Collection Type:: Voided Performed By: #### C BC, TSH3, CMP #### [address] Glucose Ql (U) >=1000 High Normal [facility] Comment on above: Order Comment: Name Collection Type:: Voided Performed By: #### C BC, TSH3, CMP #### [address] Ketones Ql (U) Negative Normal Negative [facility] Comment on above: Order Comment: Name Collection Type:: Voided Performed By: #### C BC, TSH3, CMP #### [place] [address] [place] Leukocyte esterase Test strip Ql (U) Negative Normal Negative [facility] Comment on above: Order Comment: Name Collection Type:: Voided Performed By: #### C BC, TSH3, CMP #### [address] Nitrite,Urine Negative Normal Negative [facility] Comment on above: Order Comment: Name Collection Type:: Voided Performed By: #### C BC, TSH3, CMP #### [address] Occult Blood,Urine Negative Normal Negative [facility] Comment on above: Order Comment: Name Collection Type:: Voided Result Comment: PERF ORMED BY: [place] [address] PATHOLOGIST DIRECTOR OF MATERIALS MANAGEMENT PABLO ZHAO M.D. Performed By: #### C BC, TSH3, CMP #### [address] pH (U) 7.5 [pH] Normal 5.0-9.0 [facility] Comment on above: Order Comment: Name Collection Type:: Voided Performed By: #### C BC, TSH3, CMP #### [address] Protein,Urine Negative Normal Negative [facility] Comment on above: Order Comment: Name Collection Type:: Voided Performed By: #### C BC, TSH3, CMP #### [place] [address] [place] Specificy [place],Urine 1.028 Normal 1.001-1.030 [facility] Comment on above: Order Comment: Name Collection Type:: Voided Performed By: #### C BC, TSH3, CMP #### [address] Urobilinogen,Urine Normal Normal Normal [facility] Comment on above: Order Comment: Name Collection Type:: Voided Performed By: #### C BC, TSH3, CMP #### [place] [id number] [place] Vit. B12/Folate Profileon Cobalamin (Vitamin B12) [Mass/Vol] 1380 pg/mL High 180-914 [facility] Comment on above: Performed By: #### C JESE, TSH3, CMP #### [address] Folate 22.0 ng/mL Normal >5.9 [facility] Comment on above: Result Comment: Helene te reference range: >5.9 ng/ml The WHO technical consultation on folate and vitamin b12 deficiencies has determined that folate concentrations less than 4 ng/ml are considered deficient. PERFORMED BY: [place] [address] PATHOLOGIST DIRECTOR OF MATERIALS MANAGEMENT PABLO ZHAO M.D. Performed By: #### C JESE, TSH3, CMP #### [address] Complete Blood Count Auto Di ffon 06-20-2023 Basophils (Bld) [#/Vol] 0.0 10*3/uL Normal 0.0-0.2 [facility] Comment on above: Result Comment: PERF ORMED BY: [place] [address] PATHOLOGIST DIRECTOR OF MATERIALS MANAGEMENT PABLO ZHAO M.D. Performed By: #### C JESE, TSH3, CMP #### [address] Basophils/100 WBC (Bld) 0.9 % Normal . [facility] Comment on above: Performed By: #### C BC, TSH3, CMP #### [address] Eosinophils (Bld) [#/Vol] 0.4 10*3/uL Normal 0.0-0.45 [facility] Comment on above: Performed By: #### C BC, TSH3, CMP #### [address] Eosinophils/100 WBC (Bld) 9.4 % Normal . [facility] Comment on above: Performed By: #### C BC, TSH3, CMP #### [address] Erythrocyte distribution width (RBC) [Ratio] 19.1 % High 12.0-14.8 [facility] Comment on above: Performed By: #### C BC, TSH3, CMP #### [address] Hematocrit (Bld) [Volume fraction] 30.6 % Low 38.8-50.0 [facility] Comment on above: Performed By: #### C BC, TSH3, CMP #### [address] Hemoglobin (Bld) [Mass/Vol] 9.4 g/dL Low 13.0-17.0 [facility] Comment on above: Performed By: #### C BC, TSH3, CMP #### [address] Lymphocytes (Bld) [#/Vol] 1.2 10*3/uL Normal 1.00-4.8 [facility] Comment on above: Performed By: #### C BC, TSH3, CMP #### [address] Lymphocytes/100 WBC (Bld) 32.7 % Normal . [facility] Comment on above: Performed By: #### C BC, TSH3, CMP #### [address] MCH (RBC) [Entitic mass] 24.0 pg Low 27.5-35.2 [facility] Comment on above: Performed By: #### C BC, TSH3, CMP #### [address] MCV (RBC) [Entitic vol] 77.8 fL Low 83.5-101 [facility] Comment on above: Performed By: #### C BC, TSH3, CMP #### [address] Mean Corpuscular HGB Conc 30.9 g/dL Low 32.5-35.6 [facility] Comment on above: Performed By: #### C JESE TSH3, CMP #### [address] Monocytes (Bld) [#/Vol] 0.5 10*3/uL Normal 0.0-0.8 [facility] Comment on above: Performed By: #### C JESE TSH3, CMP #### [address] Monocytes/100 WBC (Bld) 12.9 % Normal . [facility] Comment on above: Performed By: #### C JESE TSH3, CMP #### [address] Neutrophils (Bld) [#/Vol] 1.7 10*3/uL Low 1.8-7.7 [facility] Comment on above: Performed By: #### Donna SAWANT TSH3, CMP #### [address] Neutrophils/100 WBC (Bld) 44.1 % Normal . [facility] Comment on above: Performed By: #### C JESE TSH3, CMP #### [address] NRBC% 0.4 /100{WBC} Normal 0-0.[address] [facility] Comment on above: Performed By: #### C JESE TSH3, CMP #### [address] Platelet mean volume (Bld) [Entitic vol] 7.1 fL Normal 6.6-10.1 [facility] Comment on above: Performed By: #### C JESE TSH3, CMP #### [address] Platelets (Bld) [#/Vol] 190 10*3/uL Normal 150-450 [facility] Comment on above: Performed By: #### C JESE TSH3, CMP #### [address] RBC (Bld) [#/Vol] 3.93 10*6/uL Normal 3.90-5.60 [facility] Comment on above: Performed By: #### C BC, TSH3, CMP #### [address] WBC (Bld) [#/Vol] 3.7 10*3/uL Low 4.1-10.5 [facility] Comment on above: Performed By: #### C BC, TSH3, CMP #### [address] Comprehensive Metabolic Pane oleg 06-20-2023 Albumin [Mass/Vol] 4.1 g/dL Normal 3.5-5.7 [facility] Comment on above: Performed By: #### C BC, TSH3, CMP #### [address] Albumin/Globulin [Mass ratio] 1.4 {ratio} Normal [facility] Comment on above: Performed By: #### C BC, TSH3, CMP #### [address] ALP [Catalytic activity/Vol] 67 U/L Normal 34-104 [facility] Comment on above: Performed By: #### C BC, TSH3, CMP #### [address] ALT [Catalytic activity/Vol] 9 U/L Normal 7-52 [facility] Comment on above: Performed By: #### C BC, TSH3, CMP #### [address] Anion gap [Moles/Vol] 10.9 mmol/L Normal 6.0-15.0 [facility] Comment on above: Performed By: #### C BC, TSH3, CMP #### [address] AST [Catalytic activity/Vol] 17 U/L Normal 13-39 [facility] Comment on above: Performed By: #### C BC, TSH3, CMP #### [facility] [address] [place] [address] [place] Bilirubin [Mass/Vol] 0.4 mg/dL Normal 0.3-1.0 [facility] Comment on above: Performed By: #### C BC, TSH3, CMP #### [facility] [address] [place] [address] [place] Calcium [Mass/Vol] 9.5 mg/dL Normal 8.6-10.3 [facility] Comment on above: Performed By: #### C BC, TSH3, CMP #### [facility] [address] [place] [address] [place] Chloride [Moles/Vol] 100 mmol/L Normal 98-107 [facility] Comment on above: Performed By: #### C BC, TSH3, CMP #### [address] CO2 [Moles/Vol] 34.2 mmol/L High 21.0-31.0 [facility] Comment on above: Performed By: #### C BC, TSH3, CMP #### [facility] [address] [place] [address] [place] Creatinine [Mass/Vol] 0.98 mg/dL Normal 0.70-1.30 [facility] Comment on above: Performed By: #### C BC, TSH3, CMP #### [facility] [address] [place] [address] [place] Creatinine Clr Calc Pharmacy 64.64 Normal [facility] Comment on above: Performed By: #### C BC, TSH3, CMP #### [facility] [address] [place] [address] [place] GFR/1.73 sq M.predicted MDRD (S/P/Bld) [Vol rate/Area] mL/min/{1.73_m2} Normal [facility] Comment on above: Performed By: #### C BC, TSH3, CMP #### [facility] [address] [place] [address] [place] Globulin (S) [Mass/Vol] 3.0 g/dL Normal [facility] Comment on above: Performed By: #### C BC, TSH3, CMP #### [address] Glucose [Mass/Vol] 149 mg/dL High 70-100 [facility] Comment on above: Result Comment: [place] Glucose Reference Range is dependent on time and content of last meal. Glucose of more than 200 mg/dL in a nonstressed, ambulatory subject supports the diagnosis of Diabetes Mellitus. ADA recommended reference range Performed By: #### C BC, TSH3, CMP #### [address] Potassium [Moles/Vol] 4.1 mmol/L Normal 3.5-5.1 [facility] Comment on above: Performed By: #### C BC, TSH3, CMP #### [address] Protein [Mass/Vol] 7.1 g/dL Normal 6.4-8.9 [facility] Comment on above: Performed By: #### C BC, TSH3, CMP #### [address] Sodium [Moles/Vol] 141 mmol/L Normal 136-145 [facility] Comment on above: Performed By: #### C BC, TSH3, CMP #### [address] Urea nitrogen [Mass/Vol] 17 mg/dL Normal 7-25 [facility] Comment on above: Performed By: #### C BC, TSH3, CMP #### [address] Thyroid Stimulating Hormoneo n 06-20-2023 TSH Qn 3.35 m[IU]/L Normal 0.45-5.33 [facility] Comment on above: Result Comment: PERF ORMED BY: [place] [address] PATHOLOGIST DIRECTOR OF MATERIALS MANAGEMENT PABLO ZHAO M.D. 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 Lowered himself to floor. History of Present Illness: Recent covid few weeks ago with prolonged hospitalization. Now home for past few weeks. Stood up quickly and felt lightheaded. Lowered himself down and now feels completely back to baseline. Denies cp, sob. Exam: General: Awake, no distress ENT: normocephalic, atraumatic Pulmonary: No respiratory distress, speaking complete sentences Cardiovascular: Well perfused Neurologic: Oriented to person, place, time and events. Moving all extremities equally. Psychiatric: Appropriate. Good insight and judgement. Medical Decision Making: Patient with episode likely orthostatic lightheadedness today. Now oriented and declines transport. Noted significant hypoxia. Patient was advised that he requires oxygen at this level and needs to go to the hospital immediately as he is at risk of acute neuro, cardiovascular or pulm decompensation, . Patient able to verbalize understanding of this concern. Able to repeat my concerns back to me and states he just doesn't want to go back to the hospital now as he was just admitted for so long earlier this month. Family in room and also attempt to persuade patient but patient continues to refuse transport. Patient willing to sign AMA form. Patient advised to come to hospital immediately if he changes his mind and contact his doctor as soon as possible. Disposition Supported by Telehealth Assessment: ET3 transport decisions: Refused transport EMS Disposition Reported: Same ET3 Encounter Completed by: Em Staples MD Normal [facility] [employer] [facility] XR CHEST 2 Von 12-26-2022 XR CHEST 2 V EXAMINATION: XR CHES T 2 V HISTORY: Pneumonia , follow-up COMPARISON: XR chest 12/13/2022 FINDINGS: LUNGS: Patchy and strandy opacities within the right lung base as well as the mid and lower left lung. Obscuration of costophrenic angles bilaterally. VASCULATURE: No increased pulmonary vasculature. PLEURA: No pneumothorax, effusion, or pleural thickening. CARDIAC: No cardiomegaly or cardiac silhouette abnormality. MEDIASTINUM: No visible mass or adenopathy. BONES: No fracture or visible bone lesion. OTHER: Negative. IMPRESSION: 1. Suspect mild-moderate bibasilar infiltrates overlying chronic COPD. 2. No convincing pleural effusion. 3. Findings persist, but have improved slightly compared to prior study. Electronically authenticated by: OBINNA ARORA Date: 2022-12-26 17:38 Normal [facility] CBC AUTO DIFFon 12-15-2022 BASO # 0.0 103/ul Normal 0.0-0.1 [facility] Comment on above: Performed By: #### I NFLUAB #### [facility] [address] [place] [address] [address] Berta Thakkar Basophils/100 WBC (Bld) 0.3 % Normal 0.2-2.0 [facility] Comment on above: Performed By: #### I NFLUAB #### [facility] [address] [place] [address] [address] Berta Thakkar EO # 0.0 103/ul Normal 0.0-0.7 [facility] Comment on above: Performed By: #### I NFLUAB #### [facility] [address] [place] [address] [address] Berta Thakkar Eosinophils/100 WBC (Bld) 0.0 % Critically low 0.9-7.0 [facility] Comment on above: Performed By: #### I NFLUAB #### [facility] [address] [place] [place] [address] [address] Berta Thakkar Erythrocyte distribution width (RBC) [Ratio] 26.2 % Critically high 11.0-15.0 [facility] Comment on above: Performed By: #### I NFLUAB #### [facility] [address] [place] [address] [address] Berta Thakkar Hematocrit (Bld) [Volume fraction] 29.3 % Critically low 42.0-54.0 [facility] Comment on above: Performed By: #### I NFLUAB #### [facility] [address] [place] [address] Dr. Berta Thakkar Hemoglobin (Bld) [Mass/Vol] 9.2 g/dL Critically low 14.0-18.0 [facility] Comment on above: Performed By: #### I NFLUAB #### [facility] [address] [place] [address] Dr. Berta Thakkar IG # 0.01 10e3/ul Normal 0.00-0.03 [facility] Comment on above: Performed By: #### I NFLUAB #### [facility] [address] [place] [address] Dr. Berta Thakkar IG % 0.3 % Normal 0.0-0.5 [facility] Comment on above: Performed By: #### I NFLUAB #### [facility] [address] [place] [address] Dr. Berta Thakkar LYMPH # 0.1 103/ul Critically low 1.2-3.8 [facility] Comment on above: Performed By: #### I NFLUAB #### [facility] [address] [place] [address] Dr. Berta Thakkar Lymphocytes/100 WBC (Bld) 3.6 % Critically low 20.5-60.0 [facility] Comment on above: Performed By: #### I NFLUAB #### [facility] [address] [place] [address] Dr. Berta Thakkar MANUAL DIFF REQ NO Normal [facility] Comment on above: Performed By: #### I NFLUAB #### [facility] [address] [place] [address] Dr. Berta Thakkar MCH (RBC) [Entitic mass] 28.0 pg Normal 25.9-34.0 [facility] Comment on above: Performed By: #### I NFLUAB #### [facility] [address] [place] [address] Dr. Berta Thakkar MCHC (RBC) [Mass/Vol] 31.4 g/dL Normal 29.9-35.2 [facility] Comment on above: Performed By: #### I NFLUAB #### [facility] [address] [place] [address] Dr. Berta Thakkar MCV (RBC) [Entitic vol] 89.3 fL Normal 80.0-94.0 [facility] Comment on above: Performed By: #### I NFLUAB #### [facility] [address] [place] [address] Dr. Berta Thakkar MONO # 0.1 103/ul Critically low 0.3-0.8 [facility] Comment on above: Performed By: #### I NFLUAB #### [facility] [address] [place] [address] Dr. Berta Thakkar Monocytes/100 WBC (Bld) 2.2 % Normal 1.7-12.0 [facility] Comment on above: Performed By: #### I NFLUAB #### [facility] [address] [place] [address] Dr. Berta Thakkar NEUT # 3.4 103/ul Normal 1.4-6.5 [facility] Comment on above: Performed By: #### I NFLUAB #### [facility] [address] [place] [address] Dr. Berta Thakkar Neutrophils/100 WBC (Bld) 93.6 % Critically high 43.0-75.0 [facility] Comment on above: Performed By: #### I NFLUAB #### [facility] [address] [place] [address] Dr. Berta Thakkar Platelet mean volume (Bld) [Entitic vol] 9.7 fL Normal 9.5-13.5 [facility] Comment on above: Performed By: #### I NFLUAB #### [facility] [address] [place] [address] Dr. Berta Thakkar PLT 77 103/ul Critically low 150-450 [facility] Comment on above: Performed By: #### I NFLUAB #### [facility] [address] [place] [address] Dr. Berta Thakkar RBC 3.28 106/ul Critically low 4.70-6.10 [facility] Comment on above: Performed By: #### I NFLUAB #### [facility] [address] [place] [address] [address] Berta Thakkar WBC 3.6 103/ul Critically low 4.0-11.0 [facility] Comment on above: Performed By: #### I NFLUAB #### [facility] [address] [place] [address] Dr. Berta Thakkar PROF 14(COMP METB)on 023 Albumin [Mass/Vol] 2.5 g/dL Critically low 3.4-5.0 [facility] Comment on above: Performed By: #### I NFLUAB #### [facility] [address] [place] [address] Dr. Berta Thakkar Albumin/Globulin [Mass ratio] 0.7 {ratio} Normal [facility] Comment on above: Performed By: #### I NFLUAB #### [facility] [address] [place] [address] Dr. Berta Thakkar ALP [Catalytic activity/Vol] 46 U/L Normal 46-116 [facility] Comment on above: Performed By: #### I NFLUAB #### [facility] [address] [place] [address] Dr. Berta Thakkar ALT [Catalytic activity/Vol] 19 U/L Normal 16-63 [facility] Comment on above: Performed By: #### I NFLUAB #### [facility] [address] [place] [address] Dr. Berta Thakkar Anion gap [Moles/Vol] 11.0 mmol/L Normal [facility] Comment on above: Performed By: #### I NFLUAB #### [facility] [address] [place] [address] Dr. Berta Thakkar AST [Catalytic activity/Vol] 33 U/L Normal 15-37 [facility] Comment on above: Performed By: #### I NFLUAB #### [facility] [address] [place] [address] Dr. Berta Thakkar Bilirubin [Mass/Vol] 0.3 mg/dL Normal 0.2-1.0 [facility] Comment on above: Performed By: #### I NFLUAB #### [facility] [address] [place] [address] Dr. Berta Thakkar Calcium [Mass/Vol] 8.6 mg/dL Normal 8.5-10.1 [facility] Comment on above: Performed By: #### I NFLUAB #### [facility] [address] [place] [address] [address] Berta Thakkar Chloride [Moles/Vol] 109 mmol/L Critically high 98-107 [facility] Comment on above: Performed By: #### I NFLUAB #### [facility] [address] [place] [address] Dr. Berta Thakkar CO2 [Moles/Vol] 26.1 mmol/L Normal 21.0-32.0 [facility] Comment on above: Performed By: #### I NFLUAB #### [facility] [address] [place] [address] Dr. Berta Thakkar Creatinine [Mass/Vol] 0.89 mg/dL Normal 0.70-1.30 [facility] Comment on above: Performed By: #### I NFLUAB #### [facility] [address] [place] [address] Dr. Berta Thakkar EGFR-AF GAMBIAN >60 Normal >=60 [facility] Comment on above: Performed By: #### I NFLUAB #### [facility] [address] [place] [address] Dr. Berta Thakkar EGFR-NON AF GAMBIAN >60 Normal >=60 [facility] Comment on above: Performed By: #### I NFLUAB #### [facility] [address] [place] [address] Dr. Berta Thakkar Globulin (S) [Mass/Vol] 3.7 g/dL Normal [facility] Comment on above: Performed By: #### I NFLUAB #### [facility] [address] [place] [address] Dr. Berta Thakkar Glucose [Mass/Vol] 188 mg/dL Critically high 74-106 [facility] Comment on above: Performed By: #### I NFLUAB #### [facility] [address] [place] [address] Dr. Berta Thakkar Potassium [Moles/Vol] 4.1 mmol/L Normal 3.5-5.1 [facility] Comment on above: Performed By: #### I NFLUAB #### [facility] [address] [place] [address] Dr. Berta Thakkar Protein [Mass/Vol] 6.2 g/dL Critically low 6.4-8.2 [facility] Comment on above: Performed By: #### I NFLUAB #### [facility] [address] [place] [address] Dr. Berta Thakkar Sodium [Moles/Vol] 142 mmol/L Normal 136-145 [facility] Comment on above: Performed By: #### I NFLUAB #### [facility] [address] [place] [address] Dr. Berta Thakkar Urea nitrogen [Mass/Vol] 31.0 mg/dL Critically high 7.0-18.0 [facility] Comment on above: Performed By: #### I NFLUAB #### [facility] [address] [place] [address] Dr. Berta Thakkar Urea nitrogen/Creatinine [Mass ratio] 34.8 mg/mg Normal [facility] Comment on above: Performed By: #### I NFLUAB #### [facility] [address] [place] [address] Dr. Berta Thakkar CBC AUTO DIFFon 12-14-2022 BASO # 0.0 103/ul Normal 0.0-0.1 [facility] Comment on above: Performed By: #### I NFLUAB #### [facility] [address] [place] [address] Dr. Berta Thakkar Basophils/100 WBC (Bld) 0.0 % Critically low 0.2-2.0 [facility] Comment on above: Performed By: #### I NFLUAB #### [facility] [address] [address] [address] Berta Thakkar EO # 0.0 103/ul Normal 0.0-0.7 [facility] Comment on above: Performed By: #### I NFLUAB #### [facility] [address] [place] [address] Dr. Berta Thakkar Eosinophils/100 WBC (Bld) 0.0 % Critically low 0.9-7.0 [facility] Comment on above: Performed By: #### I NFLUAB #### [facility] [address] [place] [address] Dr. Berta Thakkar Erythrocyte distribution width (RBC) [Ratio] 26.3 % Critically high 11.0-15.0 [facility] Comment on above: Performed By: #### I NFLUAB #### [facility] [address] [place] [address] Dr. Berta Thakkar Hematocrit (Bld) [Volume fraction] 29.7 % Critically low 42.0-54.0 [facility] Comment on above: Performed By: #### I NFLUAB #### [facility] [address] [place] [address] Dr. Berta Thakkar Hemoglobin (Bld) [Mass/Vol] 9.2 g/dL Critically low 14.0-18.0 [facility] Comment on above: Performed By: #### I NFLUAB #### [facility] [address] [place] [address] Dr. Berta Thakkar IG # 0.00 10e3/ul Normal 0.00-0.03 [facility] Comment on above: Performed By: #### I NFLUAB #### [facility] [address] [place] [address] Dr. Berta Thakkar IG % 0.0 % Normal 0.0-0.5 [facility] Comment on above: Performed By: #### I NFLUAB #### [facility] [address] [place] [address] Dr. Berta Thakkar LYMPH # 0.2 103/ul Critically low 1.2-3.8 [facility] Comment on above: Performed By: #### I NFLUAB #### [facility] [address] [address] [address] Berta Thakkar Lymphocytes/100 WBC (Bld) 5.4 % Critically low 20.5-60.0 [facility] Comment on above: Performed By: #### I NFLUAB #### [facility] [address] [place] [address] Dr. Berta Thakkar MANUAL DIFF REQ NO Normal [facility] Comment on above: Performed By: #### I NFLUAB #### [facility] [address] [address] [address] Berta Thakkar MCH (RBC) [Entitic mass] 27.8 pg Normal 25.9-34.0 [facility] Comment on above: Performed By: #### I NFLUAB #### [facility] [address] [place] [address] Dr. Berta Thakkar MCHC (RBC) [Mass/Vol] 31.0 g/dL Normal 29.9-35.2 [facility] Comment on above: Performed By: #### I NFLUAB #### [facility] [address] [place] [address] Dr. Berta Thakkar MCV (RBC) [Entitic vol] 89.7 fL Normal 80.0-94.0 [facility] Comment on above: Performed By: #### I NFLUAB #### [facility] [address] [place] [address] Dr. Berta Thakkar MONO # 0.1 103/ul Critically low 0.3-0.8 [facility] Comment on above: Performed By: #### I NFLUAB #### [facility] [address] [place] [address] Dr. Berta Thakkar Monocytes/100 WBC (Bld) 1.6 % Critically low 1.7-12.0 [facility] Comment on above: Performed By: #### I NFLUAB #### [facility] [address] [place] [address] Dr. Berta Thakkar NEUT # 3.5 103/ul Normal 1.4-6.5 [facility] Comment on above: Performed By: #### I NFLUAB #### [facility] [address] [address] [address] Berta Thakkar Neutrophils/100 WBC (Bld) 93.0 % Critically high 43.0-75.0 [facility] Comment on above: Performed By: #### I NFLUAB #### [facility] [address] [address] [address] Berta Thakkar Platelet mean volume (Bld) [Entitic vol] 9.7 fL Normal 9.5-13.5 [facility] Comment on above: Performed By: #### I NFLUAB #### [facility] [address] [place] [address] Dr. Berta Thakkar PLT 99 103/ul Critically low 150-450 [facility] Comment on above: Performed By: #### I NFLUAB #### [facility] [address] [address] [address] Berta Thakkar RBC 3.31 106/ul Critically low 4.70-6.10 [facility] Comment on above: Performed By: #### I NFLUAB #### [facility] [address] [address] [address] Berta Thakkar WBC 3.7 103/ul Critically low 4.0-11.0 [facility] Comment on above: Performed By: #### I NFLUAB #### [facility] [address] [address] [address] Berta Thakkar PROF 14(COMP METB)on 023 Albumin [Mass/Vol] 2.5 g/dL Critically low 3.4-5.0 [facility] Comment on above: Performed By: #### C MP #### [facility] [address] [place] [address] Dr. Berta Thakkar Albumin/Globulin [Mass ratio] 0.7 {ratio} Normal [facility] Comment on above: Performed By: #### C MP #### [facility] [address] [place] [address] Dr. Berta Thakkar ALP [Catalytic activity/Vol] 55 U/L Normal 46-116 [facility] Comment on above: Performed By: #### C MP #### [facility] [address] [address] [address] Berta Thakkar ALT [Catalytic activity/Vol] 24 U/L Normal 16-63 [facility] Comment on above: Performed By: #### C MP #### [facility] [address] [address] [address] Berta Thakkar Anion gap [Moles/Vol] 12.6 mmol/L Normal [facility] Comment on above: Performed By: #### C MP #### [facility] [address] [address] [address] Berta Thakkar AST [Catalytic activity/Vol] 34 U/L Normal 15-37 [facility] Comment on above: Performed By: #### C MP #### [facility] [address] [address] [address] Berta Thakkar Bilirubin [Mass/Vol] 0.3 mg/dL Normal 0.2-1.0 [facility] Comment on above: Performed By: #### C MP #### [facility] [address] [address] [address] Berta Thakkar Calcium [Mass/Vol] 8.5 mg/dL Normal 8.5-10.1 [facility] Comment on above: Performed By: #### C MP #### [facility] [address] [address] [address] Berta Thakkar Chloride [Moles/Vol] 105 mmol/L Normal 98-107 [facility] Comment on above: Performed By: #### C MP #### [facility] [address] [address] [address] Berta Thakkar CO2 [Moles/Vol] 25.5 mmol/L Normal 21.0-32.0 [facility] Comment on above: Performed By: #### C MP #### [facility] [address] [address] [address] Berta Thakkar Creatinine [Mass/Vol] 0.97 mg/dL Normal 0.70-1.30 [facility] Comment on above: Performed By: #### C MP #### [facility] [address] [address] [address] Berta Thakkar EGFR-AF GAMBIAN >60 Normal >=60 [facility] Comment on above: Performed By: #### C MP #### [facility] [address] [address] [address] Berta Thakkar EGFR-NON AF GAMBIAN >60 Normal >=60 [facility] Comment on above: Performed By: #### C MP #### [facility] [address] [address] [address] Berta Thakkar Globulin (S) [Mass/Vol] 3.7 g/dL Normal [facility] Comment on above: Performed By: #### C MP #### [facility] [address] [address] [address] Berta Thakkar Glucose [Mass/Vol] 186 mg/dL Critically high 74-106 [facility] Comment on above: Performed By: #### C MP #### [facility] [address] [address] [address] Berta Thakkar Potassium [Moles/Vol] 4.1 mmol/L Normal 3.5-5.1 [facility] Comment on above: Performed By: #### C MP #### [facility] [address] [address] [address] Berta Thakkar Protein [Mass/Vol] 6.2 g/dL Critically low 6.4-8.2 [facility] Comment on above: Performed By: #### C MP #### [facility] [address] [address] [address] Berta Thakkar Sodium [Moles/Vol] 139 mmol/L Normal 136-145 [facility] Comment on above: Performed By: #### C MP #### [facility] [address] [address] [address] Berta Thakkar Urea nitrogen [Mass/Vol] 23.0 mg/dL Critically high 7.0-18.0 [facility] Comment on above: Performed By: #### C MP #### [facility] [address] [place] [address] Dr. Berta Thakkar Urea nitrogen/Creatinine [Mass ratio] 23.7 mg/mg Normal [facility] Comment on above: Performed By: #### C MP #### [facility] [address] [place] [address] Dr. Berta Thakkar PTT HEPARIN MONITORon 2022 aPTT Coag (Bld) [Time] 96.8 s Critically high 39.5-54.2 [facility] Comment on above: Performed By: #### P T, PTT #### [facility] [address] [place] [address] Dr. Berta Thakkar TROPONIN, HIGH SENSITIVITYon 12-14-2022 HSTROP 734.6 pg/mL Critically high 4.0-76.1 [facility] Comment on above: Result Comment: CUT- OFF POINTS HAVE BEEN ESTABLISHED BASED ON THE FOURTH UNIVERSAL DEFINITIONS OF MYOCARDIAL INFARCTION. THE UPPER REFERENCE LIMIT (URL) OF TROPONIN, DEFINED THE 99TH PERCENTILE OF cTnI DISTRIBUTION IN A REFERENCE POPULATION, HAS BEEN CONFIRMED THE DECISION THRESHOLD FOR ID DIAGNOSIS. Performed By: #### I NFLUAB #### [facility] [address] [place] [address] Dr. Berta Thakkar CARDIAC PAIGE 3-6on 3 CK [Catalytic activity/Vol] 38 U/L Critically low 39-308 [facility] Comment on above: Performed By: #### I NFLUAB #### [facility] [address] [place] [address] Dr. Berta Thakkar CK [Catalytic activity/Vol] 49 U/L Normal 39-308 [facility] Comment on above: Performed By: #### C MREP #### [facility] [address] [place] [address] Dr. Berta Thakkar CK.MB [Mass/Vol] 0.38 ng/mL Normal <=3.60 [facility] Comment on above: Performed By: #### I NFLUAB #### [facility] [address] [place] [address] Dr. Berta Thakkar CK.MB [Mass/Vol] 0.73 ng/mL Normal <=3.60 [facility] Comment on above: Performed By: #### C MREP #### [facility] [address] [address] [address] Berta Thakkar HSTROP 71.8 pg/mL Normal 4.0-76.1 [facility] Comment on above: Result Comment: CUT- OFF POINTS HAVE BEEN ESTABLISHED BASED ON THE FOURTH UNIVERSAL DEFINITIONS OF MYOCARDIAL INFARCTION. THE UPPER REFERENCE LIMIT (URL) OF TROPONIN, DEFINED THE 99TH PERCENTILE OF cTnI DISTRIBUTION IN A REFERENCE POPULATION, HAS BEEN CONFIRMED THE DECISION THRESHOLD FOR ID DIAGNOSIS. Performed By: #### I NFLUAB #### [facility] [address] [address] [address] Berta Thakkar HSTROP 177.7 pg/mL Critically high 4.0-76.1 [facility] Comment on above: Result Comment: CUT- OFF POINTS HAVE BEEN ESTABLISHED BASED ON THE FOURTH UNIVERSAL DEFINITIONS OF MYOCARDIAL INFARCTION. THE UPPER REFERENCE LIMIT (URL) OF TROPONIN, DEFINED THE 99TH PERCENTILE OF cTnI DISTRIBUTION IN A REFERENCE POPULATION, HAS BEEN CONFIRMED THE DECISION THRESHOLD FOR ID DIAGNOSIS. Performed By: #### C MREP #### [facility] [address] [address] [address] Berta Thakkar CARDIAC PAIGE ADMITon 023 CK [Catalytic activity/Vol] 47 U/L Normal 39-308 [facility] Comment on above: Performed By: #### H STROPN #### [facility] [id number] Berta Thakkar CK.MB [Mass/Vol] 0.36 ng/mL Normal <=3.60 [facility] Comment on above: Performed By: #### H STROPN #### [facility] [address] [place], [place] [address] Dr. Berta Thakkar HSTROP 83.0 pg/mL Critically high 4.0-76.1 [facility] Comment on above: Result Comment: CUT- OFF POINTS HAVE BEEN ESTABLISHED BASED ON THE FOURTH UNIVERSAL DEFINITIONS OF MYOCARDIAL INFARCTION. THE UPPER REFERENCE LIMIT (URL) OF TROPONIN, DEFINED THE 99TH PERCENTILE OF cTnI DISTRIBUTION IN A REFERENCE POPULATION, HAS BEEN CONFIRMED THE DECISION THRESHOLD FOR ID DIAGNOSIS. Performed By: #### H STROPN #### [facility] [address] [address] [address] Berta Thakkar CAROL 56 ng/mL Normal 16-96 [facility] Comment on above: Performed By: #### H STROPN #### [facility] [address] [address] [address] Berta Thakkar CBC AUTO DIFFon 12-13-2022 BASO # 0.0 103/ul Normal 0.0-0.1 [facility] Comment on above: Performed By: #### I NFLUAB #### [facility] [address] [place] [address] Dr. Berta Thakkar Basophils/100 WBC (Bld) 0.2 % Normal 0.2-2.0 [facility] Comment on above: Performed By: #### I NFLUAB #### [facility] [address] [place] [address] Dr. Berta Thakkar EO # 0.0 103/ul Normal 0.0-0.7 [facility] Comment on above: Performed By: #### I NFLUAB #### [facility] [address] [place] [address] Dr. Berta Thakkar Eosinophils/100 WBC (Bld) 1.0 % Normal 0.9-7.0 [facility] Comment on above: Performed By: #### I NFLUAB #### [facility] [address] [place] [address] Dr. Berta Thakkar Erythrocyte distribution width (RBC) [Ratio] 25.6 % Critically high 11.0-15.0 [facility] Comment on above: Performed By: #### I NFLUAB #### [facility] [address] [place] [address] Dr. Berta Thakkar Hematocrit (Bld) [Volume fraction] 37.2 % Critically low 42.0-54.0 [facility] Comment on above: Performed By: #### I NFLUAB #### [facility] [address] [place] [address] Dr. Berta Thakkar Hemoglobin (Bld) [Mass/Vol] 11.6 g/dL Critically low 14.0-18.0 [facility] Comment on above: Performed By: #### I NFLUAB #### [facility] [address] [place] [address] Dr. Berta Thakkar IG # 0.02 10e3/ul Normal 0.00-0.03 [facility] Comment on above: Performed By: #### I NFLUAB #### [facility] [address] [place] [address] Dr. Berta Thakkar IG % 0.5 % Normal 0.0-0.5 [facility] Comment on above: Performed By: #### I NFLUAB #### [facility] [address] [place] [address] Dr. Berta Thakkar LYMPH # 0.5 103/ul Critically low 1.2-3.8 [facility] Comment on above: Performed By: #### I NFLUAB #### [facility] [address] [place] [address] Dr. Berta Thakkar Lymphocytes/100 WBC (Bld) 11.3 % Critically low 20.5-60.0 [facility] Comment on above: Performed By: #### I NFLUAB #### [facility] [address] [place] [address] Dr. Berta Thakkar MANUAL DIFF REQ NO Normal [facility] Comment on above: Performed By: #### I NFLUAB #### [facility] [address] [place] [address] Dr. Berta Thakkar MCH (RBC) [Entitic mass] 27.9 pg Normal 25.9-34.0 [facility] Comment on above: Performed By: #### I NFLUAB #### [facility] [address] [place] [address] Dr. Berta Thakkar MCHC (RBC) [Mass/Vol] 31.2 g/dL Normal 29.9-35.2 [facility] Comment on above: Performed By: #### I NFLUAB #### [facility] [address] [place] [address] Dr. Berta Thakkar MCV (RBC) [Entitic vol] 89.4 fL Normal 80.0-94.0 [facility] Comment on above: Performed By: #### I NFLUAB #### [facility] [address] [place] [address] Dr. Berta Thakkar MONO # 0.3 103/ul Normal 0.3-0.8 [facility] Comment on above: Performed By: #### I NFLUAB #### [facility] [address] [place] [address] Dr. Berta Thakkar Monocytes/100 WBC (Bld) 8.3 % Normal 1.7-12.0 [facility] Comment on above: Performed By: #### I NFLUAB #### [facility] [address] [place] [address] Dr. Berta Thakkar NEUT # 3.2 103/ul Normal 1.4-6.5 [facility] Comment on above: Performed By: #### I NFLUAB #### [facility] [address] [place] [address] Dr. Berta Thakkar Neutrophils/100 WBC (Bld) 78.7 % Critically high 43.0-75.0 [facility] Comment on above: Performed By: #### I NFLUAB #### [facility] [address] [place] [address] Dr. Berta Thakkar Platelet mean volume (Bld) [Entitic vol] 9.2 fL Critically low 9.5-13.5 [facility] Comment on above: Performed By: #### I NFLUAB #### [facility] [address] [place] [address] Dr. Berta Thakkar PLT 129 103/ul Critically low 150-450 [facility] Comment on above: Performed By: #### I NFLUAB #### [facility] [address] [place] [address] Dr. Berta Thakkar RBC 4.16 106/ul Critically low 4.70-6.10 [facility] Comment on above: Performed By: #### I NFLUAB #### [facility] [address] [place] [address] Dr. Berta Thakkar WBC 4.1 103/ul Normal 4.0-11.0 [facility] Comment on above: Performed By: #### I NFLUAB #### [facility] [address] [place] [address] Dr. Berta Thakkar CBC W MANUAL DIFFon 12-13-19 23 ANISOCYTOSIS 3+ Normal [facility] Comment on above: Performed By: #### C BCMAN #### [facility] [address] [place] [address] Dr. Berta Thakkar ATYPICAL LYMPH # Normal [facility] Comment on above: Performed By: #### C BCMAN #### [facility] [address] [place] [address] Dr. Berta Thakkar ATYPICAL LYMPH % Normal [facility] Comment on above: Performed By: #### C BCMAN #### [facility] [address] [place] [address] Dr. Berta Thakkar BAND # 0.7 103/ul Critically high 0.0-0.3 [facility] Comment on above: Performed By: #### C BCMAN #### [facility] [address] [place] [address] Dr. Berta Thakkar BAND % 19 % Critically high 0-5 [facility] Comment on above: Performed By: #### C BCMAN #### [facility] [address] [place] [address] Dr. Berta Thakkar BASOM # 0.00 103/ul Normal 0.00-0.10 [facility] Comment on above: Performed By: #### C BCMAN #### [facility] [address] [place] [address] Dr. Berta Thakkar BASOM % 0.0 % Critically low 0.2-2.0 [facility] Comment on above: Performed By: #### C BCMAN #### [facility] [address] [place] [address] Dr. Berta Thakkar BLAST # Normal [facility] Comment on above: Performed By: #### C BCMAN #### [facility] [address] [place] [address] Dr. Berta Thakkar BLAST % Normal [facility] Comment on above: Performed By: #### C BCKOURTNEY #### [facility] [address] [address] [address] Berta Thakkar CORRECTED WBC Normal 4.0-11.0 [facility] Comment on above: Performed By: #### C TEOFILO #### [facility] [address] [address] [address] Berta Thakkar EOS # 0.04 103/ul Normal 0.00-0.70 [facility] Comment on above: Performed By: #### C TEOFILO #### [facility] [address] [address] [address] Berta Thakkar EOS% 1.0 % Normal 0.9-7.0 [facility] Comment on above: Performed By: #### C TEOFILO #### [facility] [address] [address] [address] Berta Thakkar HCT 28.8 % Critically low 42.0-54.0 [facility] Comment on above: Performed By: #### C TEOFILO #### [facility] [address] [address] [address] Berta Thakkar HGB 9.0 g/dl Critically low 14.0-18.0 [facility] Comment on above: Performed By: #### C TEOFILO #### [facility] [address] [address] [address] Berta Thakkar LYMPHM # 0.16 103/ul Critically low 1.20-3.80 [facility] Comment on above: Performed By: #### C BCKOURTNEY #### [facility] [address] [address] [address] Berta Thakkar LYMPHM% 4.0 % Critically low 20.5-60.0 [facility] Comment on above: Performed By: #### C TEOFILO #### [facility] [address] [address] [address] Berta Thakkar MCH 27.9 pg Normal 25.9-34.0 [facility] Comment on above: Performed By: #### C TEOFILO #### [facility] [address] [address] [address] Berta Thakkar MCHC 31.3 g/dl Normal 29.9-35.2 [facility] Comment on above: Performed By: #### C TEOFILO #### [facility] [address] [place] [address] Dr. Berta Thakkar MCV 89.2 fL Normal 80.0-94.0 [facility] Comment on above: Performed By: #### C TEOFILO #### [facility] [address] [place] [address] Dr. Berta Thakkar METAMYELOCYTE # Normal [facility] Comment on above: Performed By: #### C TEOFILO #### [facility] [address] [place] [address] Dr. Berta Thakkar METAMYELOCYTE % Normal [facility] Comment on above: Performed By: #### C TEOFILO #### [facility] [address] [place] [address] Dr. Berta Thakkar MONOM# 0.04 103/ul Critically low 0.30-0.80 [facility] Comment on above: Performed By: #### C TEOFILO #### [facility] [address] [place] [address] Dr. Berta Thakkar MONOM% 1.0 % Critically low 1.7-12.0 [facility] Comment on above: Performed By: #### C TEOFILO #### [facility] [address] [place] [address] Dr. Berta Thakkar MPV 8.9 fL Critically low 9.5-13.5 [facility] Comment on above: Performed By: #### C TEOFILO #### [facility] [address] [place] [address] Dr. Berta Thakkar MYELOCYTE # Normal [facility] Comment on above: Performed By: #### C TEOFILO #### [facility] [address] [place] [address] Dr. Berta Thakkar MYELOCYTE % Normal [facility] Comment on above: Performed By: #### C TEOFILO #### [facility] [address] [place] [address] Dr. Berta Thakkar NRBC Normal [facility] Comment on above: Performed By: #### C TEOFILO #### [facility] [address] [address] [address] Berta Thakkar PLT 95 103/ul Critically low 150-450 [facility] Comment on above: Performed By: #### C TEOFILO #### [facility] [address] [place] [address] Dr. Berta Thakkar RBC 3.23 106/ul Critically low 4.70-6.10 [facility] Comment on above: Performed By: #### C TEOFILO #### [facility] [address] [place] [address] Dr. Berta Thakkar RDW 26.3 % Critically high 11.0-15.0 [facility] Comment on above: Performed By: #### C TEOFILO #### [facility] [address] [place] [address] Dr. Berta Thakkar SEG # 2.92 103/ul Normal 1.40-6.50 [facility] Comment on above: Performed By: #### C TEOFILO #### [facility] [address] [place] [address] Dr. Berta Thakkar SEG % 75.0 % Normal 43.0-75.0 [facility] Comment on above: Performed By: #### C TEOFILO #### [facility] [address] [place] [address] Dr. Berta Thakkar TOXIC GRANULATION 3+ Normal [facility] Comment on above: Performed By: #### C TEOFILO #### [facility] [address] [place] [address] Dr. Berta Thakkar WBC 3.9 103/ul Critically low 4.0-11.0 [facility] Comment on above: Performed By: #### C TEOFILO #### [facility] [address] [place] [address] Dr. Berta Thakkar CULTURE BLOODon 12-13-2022 Microscopic examination of blood, culture Culture Observations: NO GROWTH AT 5 DAYS. Normal [facility] Comment on above: Performed By: #### H STRO #### [facility] [address] [place], [place] [address] Dr. Berta Thakkar Covid-19 PCR ([place])on 11-27 SARS-CoV-2 (COVID-19) RNA VALENTINO+probe Ql (Unsp spec) Detected Abnormal NOT DETECTED [facility] Comment on above: Result Comment: When diagnostic testing is negative, the possibility of a false negative should be considered in the context of a patient's recent exposures and the presence of clinical signs and symptoms consistent with SARS-CoV-2. This test is not yet approved or cleared by the [place] FDA. When there are no FDA-approved or cleared tests available, and other criteria are met, FDA can make tests available under an emergency access mechanism called an Emergency Use Authorization (EUA). The EUA for this test is supported by the [place] of Health and Human Service's declaration that circumstances exist to justify the emergency use of in vitro diagnostics for the detection and/or diagnosis of the virus that causes COVID-19. This EUA will remain in effect for the duration of the COVID-19 declaration justifying emergency of IVDs, unless it is terminated or revoked by the FDA (after which the test may no longer be used). This test is not yet approved or cleared by the [place] FDA. When there are no FDA-approved or cleared tests available, and other criteria are met, FDA can make tests available under an emergency access mechanism called an Emergency Use Authorization (EUA). The EUA for this test is supported by the [place] of Health and Human Service's declaration that circumstances exist to justify the emergency use of in vitro diagnostics for the detection and/or diagnosis of the virus that causes COVID-19. This EUA will remain in effect for the duration of the COVID-19 declaration justifying emergency of IVDs, unless it is terminated or revoked by the FDA (after which the test may no longer be used). Previously reported as: NOT DETECTED On 12/13/2022 00:49 By [id number] Performed By: #### [facility] #### [facility] [address] [place], [place] [address] Dr. Berta Thakkar ECHO LIMITED STUDYon 023 ECHO LIMITED STUDY Patient: CINDY RM Exam Date: 12/13/2022 : 1950 Gender:M Ordering : DR ABILIO KAY . Admission #: [id number] Family : Order #: [id number] CLICK HERE TO VIEW EXAM ECHOCARDIOGRAM REPORT PROCEDURE: CARDIO PULMONARY ECHO LIMITED STUDY INDICATIONS: Elevated traponin, Hypotension, Covid positive COMPARISON: None. DESCRIPTION: Limited ECHOCARDIOGRAM Real-time transthoracic echocardiography with 2D and M-mode performed. QUALITY: Technical quality was good. LEFT VENTRICLE: Normal chamber size. Thickened septal wall. Global left ventricular systolic function is normal. LV EF: Calculated left ventricular ejection fraction is 64% DIASTOLIC: ATRIAL SEPTUM: LEFT ATRIUM: RIGHT ATRIUM: RIGHT VENTRICLE: Normal chamber size. Normal right ventricular systolic function. TRICUSPID VALVE: Normal mobility and thickness. No evidence of pulmonary hypertension. RVSP 14 mmHg MITRAL VALVE: Normal mobility and thickness. Mild mitral annular calcification. AORTIC VALVE: Normal trileaflet appearance. Mildly calcified aortic valve. Normal leaflet mobility. AORTIC ROOT: Normal diameter and appearance. PULMONIC VALVE: Normal thickness and mobility. PERICARDIUM: IVC: Collapses with inspirations. Normal size. PLEURA: CONCLUSION: 1. Normal ventricular size and systolic function. LVEF is 60 to 65%. 2. No pericardial effusion. 3. Normal right-sided pressures. 4. Limited study performed with limited Doppler interrogation of the tricuspid valve. Adult Echocardiography Procedure Report Left Ventricle LVEDD (3.7 - 5.6 cm): 3.79 cm LVESD (2.2 - 4.0 cm): 2.45 cm LVIVS thickness (0.6 - 1.2 cm): 1.42 cm LVPW thickness (0.5 - 1.0 cm): 0.90 cm LVOT Diameter 2.03 cm Left Ventricular Ejection Fraction: 60-65 % Left Atrium Left Atrium Systolic Dimension: 3.84 cm Mitral Valve Right Ventricle Aorta AO Root Diam: 3.34 cm Aortic Valve Tricuspid Valve Peak Velocity (Regurgitant Flow): 1.71 m/s Pulmonic Valve Right Atrium Dictated by: August Saunders M.D. on 12/15/2022 at 10:00 Approved by: August Saunders M.D. on 12/15/2022 at 10:13 Normal [facility] URINE PROFILEon 3 Bilirubin Ql (U) Negative Normal NEGATIVE [facility] Comment on above: Performed By: #### I NFLUAB #### [facility] [address] [place] [address] Dr. Berta Thakkar Clarity (U) CLEAR Normal CLEAR [facility] Comment on above: Performed By: #### I NFLUAB #### [facility] [address] [place] [address] Dr. Berta Thakkar Color (U) LT. YELLOW Normal YELLOW [facility] Comment on above: Performed By: #### I NFLUAB #### [facility] [address] [place] [address] Dr. Berta SHOEMAKER A micrscopic examination will be performed if indicated. Normal [facility] Comment on above: Performed By: #### I NFLUAB #### [facility] [address] [place] [address] Dr. Berta Thakkar Glucose Ql (U) 250 mg/dl Abnormal NEGATIVE [facility] Comment on above: Performed By: #### I NFLUAB #### [facility] [address] [place] [address] Dr. Berta Thakkar Hemoglobin Ql (U) Negative Normal NEGATIVE [facility] Comment on above: Performed By: #### I NFLUAB #### [facility] [address] [place] [address] Dr. Berta Thakkar Ketones Ql (U) TRACE Abnormal NEGATIVE [facility] Comment on above: Performed By: #### I NFLUAB #### [facility] [address] [place] [address] Dr. Berta Thakkar LEUKOCYTES Negative Normal NEGATIVE [facility] Comment on above: Performed By: #### I NFLUAB #### [facility] [address] [place] [address] Dr. Berta Thakkar Nitrite Ql (U) Negative Normal NEGATIVE [facility] Comment on above: Performed By: #### I NFLUAB #### [facility] [address] [place] [address] Dr. Berta Thakkar pH (U) 6.0 [pH] Normal 5-9 [facility] Comment on above: Performed By: #### I NFLUAB #### [facility] [address] [place] [address] Dr. Berta Thakkar SPEC GRAVITY 1.025 Normal 1.005-<=1.025 [facility] Comment on above: Performed By: #### I NFLUAB #### [facility] [address] [place] [address] Dr. Berta Thakkar UA PROTEIN TRACE Normal NEGATIVE/ TRACE [facility] Comment on above: Performed By: #### I NFLUAB #### [facility] [address] [place] [address] Dr. Berta Thakkar UR MICRO IND NOT INDICATED Normal [facility] Comment on above: Performed By: #### I NFLUAB #### [facility] [address] [place] [address] Dr. Berta Thakkar Urobilinogen Qn (U) 0.2 {Roro'U}/dL Normal 0.2 - 1. 0 [facility] Comment on above: Performed By: #### I NFLUAB #### [facility] [address] [place] [address] Dr. Berta Thakkar INFLUENZA A AND B [facility]on 12[facility] Comment on above: Result Comment: Nega tive for Flu A protein angiten. Infection due to Flu A cannot be ruled out. Flu A angiten in the sample may be below the detection limit of the test. Performed By: #### I NFLUAB #### [facility] [address] [place] [address] Dr. Berta Thakkar INFLUBNEGH SEE BELOW Normal [facility] Comment on above: Result Comment: Nega tive for Flu B protein antigen. Infection due to Flu B cannot be ruled out. Flu B antigen in the sample may be below the detection limit of the test. Performed By: #### I NFLUAB #### [facility] [address] [place] [address] Dr. Berta Thakkar INFLUENZA A AG Negative Normal NEGATIVE SEE COMMENT [facility] Comment on above: Performed By: #### I NFLUAB #### [facility] [address] [place] [address] Dr. Berta Thakkar INFLUENZA B AG Negative Normal NEGATIVE SEE COMMENT [facility] Comment on above: Performed By: #### I NFLUAB #### [facility] [address] [place] [address] Dr. Breta Thakkar LACTATE/LACTIC ACIDon 2022 Lactate [Moles/Vol] 1.3 mmol/L Normal 0.4-1.9 [facility] Comment on above: Performed By: #### I NFLUAB #### [facility] [address] [place] [address] Dr. Berta Thakkar Lactate [Moles/Vol] 1.6 mmol/L Normal 0.4-1.9 [facility] Comment on above: Performed By: #### I NFLUAB #### [facility] [address] [place] [address] Dr. Berta Thakkar POINT OF CARE GLUCOSEon 11-27 Glucose [Mass/Vol] 217 mg/dL Critically high 74-106 [facility] Comment on above: Performed By: #### P T, PTT #### [facility] [address] [place] [address] Dr. Berta Thakkar PROF CHEM 8 (BAS METB)on Anion gap [Moles/Vol] 12.7 mmol/L Normal [facility] Comment on above: Performed By: #### H STROPN #### [facility] [address] [place] [address] Dr. Berta Thakkar Calcium [Mass/Vol] 9.3 mg/dL Normal 8.5-10.1 [facility] Comment on above: Performed By: #### H STROPN #### [facility] [address] [place] [address] Dr. Berta Thakkar Chloride [Moles/Vol] 98 mmol/L Normal 98-107 [facility] Comment on above: Performed By: #### H STROPN #### [facility] [address] [place] [address] Dr. Berta Thakkar CO2 [Moles/Vol] 30.4 mmol/L Normal 21.0-32.0 [facility] Comment on above: Performed By: #### H STROPN #### [facility] [address] [address] [address] Berta Thakkar Creatinine [Mass/Vol] 1.27 mg/dL Normal 0.70-1.30 [facility] Comment on above: Performed By: #### H STROPN #### [facility] [address] [address] [address] Berta Thakkar EGFR-AF GAMBIAN >60 Normal >=60 [facility] Comment on above: Performed By: #### H STROPN #### [facility] [address] [address] [address] Berta Thakkar EGFR-NON AF GAMBIAN 56 mL/min/1.73m2 Critically low >=60 [facility] Comment on above: Performed By: #### H STROPN #### [facility] [address] [address] [address] Berta Thakkar Glucose [Mass/Vol] 185 mg/dL Critically high 74-106 [facility] Comment on above: Performed By: #### H STROPN #### [facility] [address] [place] [address] Dr. Berta Thakkar Potassium [Moles/Vol] 4.1 mmol/L Normal 3.5-5.1 [facility] Comment on above: Performed By: #### H STROPN #### [facility] [address] [address] [address] Berta Thakkar Sodium [Moles/Vol] 137 mmol/L Normal 136-145 [facility] Comment on above: Performed By: #### H STROPN #### [facility] [address] [address] [address] Berta Thakkar Urea nitrogen [Mass/Vol] 27.0 mg/dL Critically high 7.0-18.0 [facility] Comment on above: Performed By: #### H STROPN #### [facility] [address] [place] [address] Dr. Berta Thakkar Urea nitrogen/Creatinine [Mass ratio] 21.3 mg/mg Normal [facility] Comment on above: Performed By: #### H STROPN #### [facility] [address] [place] [address] Dr. Berta Thakkar PROTIMEon 12-13-2022 INR Coag (PPP) [Relative time] 1.10 {INR} Normal [facility] Comment on above: Performed By: #### P T, PTT #### [facility] [address] [place] [address] Dr. Berta Thakkar INR GUIDELINES SEE BELOW Normal [facility] Comment on above: Result Comment: ANTHONY RED INR: 2.0 - 3.0 CONDITIONS NOT LISTED BELOW 2.5 - 3.5 FOR PROSTHETIC HEART VALVE REPLACEMENT 2.5 - 3.5 RECURRENT THROMBOSIS Performed By: #### P T, PTT #### [facility] [address] [place] [address] Dr. Berta Thakkar PT Coag (PPP) [Time] 11.6 s Normal 9.0-11.6 [facility] Comment on above: Performed By: #### P T, PTT #### [facility] [address] [place] [address] Dr. Berta Thakkar PTTon 12-13-2022 aPTT Coag (Bld) [Time] 35.0 s Normal 22.3-36.2 [facility] Comment on above: Performed By: #### P T, PTT #### [facility] [address] [place] [address] Dr. Berta Thakkar TROPONIN, HIGH SENSITIVITYon 12-13-2022 HSTROP 1065.9 pg/mL Critically high 4.0-76.1 [facility] Comment on above: Result Comment: CUT- OFF POINTS HAVE BEEN ESTABLISHED BASED ON THE FOURTH UNIVERSAL DEFINITIONS OF MYOCARDIAL INFARCTION. THE UPPER REFERENCE LIMIT (URL) OF TROPONIN, DEFINED THE 99TH PERCENTILE OF cTnI DISTRIBUTION IN A REFERENCE POPULATION, HAS BEEN CONFIRMED THE DECISION THRESHOLD FOR ID DIAGNOSIS. Performed By: #### P T, PTT #### [facility] [address] [place] [address] Dr. Berta Thakkar HSTROP 2122.6 pg/mL Critically high 4.0-76.1 [facility] Comment on above: Result Comment: CUT- OFF POINTS HAVE BEEN ESTABLISHED BASED ON THE FOURTH UNIVERSAL DEFINITIONS OF MYOCARDIAL INFARCTION. THE UPPER REFERENCE LIMIT (URL) OF TROPONIN, DEFINED THE 99TH PERCENTILE OF cTnI DISTRIBUTION IN A REFERENCE POPULATION, HAS BEEN CONFIRMED THE DECISION THRESHOLD FOR ID DIAGNOSIS. Performed By: #### H STROPN #### [facility] [address] [address] [address] Berta Thakkar HSTROP 2303.4 pg/mL Critically high 4.0-76.1 [facility] Comment on above: Result Comment: CUT- OFF POINTS HAVE BEEN ESTABLISHED BASED ON THE FOURTH UNIVERSAL DEFINITIONS OF MYOCARDIAL INFARCTION. THE UPPER REFERENCE LIMIT (URL) OF TROPONIN, DEFINED THE 99TH PERCENTILE OF cTnI DISTRIBUTION IN A REFERENCE POPULATION, HAS BEEN CONFIRMED THE DECISION THRESHOLD FOR ID DIAGNOSIS. Performed By: #### H STROPN #### [facility] [address] [address] [address] Berta Thakkar HSTROP 1727.1 pg/mL Critically high 4.0-76.1 [facility] Comment on above: Result Comment: CUT- OFF POINTS HAVE BEEN ESTABLISHED BASED ON THE FOURTH UNIVERSAL DEFINITIONS OF MYOCARDIAL INFARCTION. THE UPPER REFERENCE LIMIT (URL) OF TROPONIN, DEFINED THE 99TH PERCENTILE OF cTnI DISTRIBUTION IN A REFERENCE POPULATION, HAS BEEN CONFIRMED THE DECISION THRESHOLD FOR ID DIAGNOSIS. Performed By: #### H STROPN #### [facility] [address] [address] [address] Berta Thakkar XR CHEST 1 Von 12-13-2022 XR CHEST 1 V EXAM: XR CHEST 1 V HISTORY: COUGH COMPARISON: Chest x-ray 08/23/2021 TECHNIQUE: Single frontal view chest x-ray FINDINGS: Moderate left and mild right lower lung opacity. No large pleural effusions, pneumothorax, or acute bony abnormality. Cardiac size is for line prominent, similar to prior exam. IMPRESSION: Moderate left and mild right lower lung opacities reflecting pneumonitis, edema, or other lung infiltrates. Correlate clinically. 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 COMPARISON: September 21, 2021 ACCESSION NUMBER(S): [id number] ORDERING CLINICIAN: ANDREA HAWTHORNE FINDINGS: Possible new 6 mm left upper lobe pulmonary nodule. Cardiomegaly with atherosclerotic aorta unchanged. IMPRESSION: Possible new 6 mm left upper lobe pulmonary nodule. CT thorax recommended given the known history of previous malignancy. Electronic result notification sent on this study at the time of final interpretation 5:26 p.m. 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 : evaluation of secondary neoplasm, pulmonary metastasis, history of oral cavity cancer Patient Discussion/Summary No evidence of any recurrence of the patient's previous a treated tongue cancer. A chest x-ray will be obtained today. Dysphagia which seems to be stable. Hypothyroidism which is being addressed with Synthroid. A TSH will be obtained today. I will see him in 1 year. Provider Impressions No evidence of any recurrence of the patient's previous a treated tongue cancer. A chest x-ray will be obtained today. Dysphagia which seems to be stable. Hypothyroidism which is being addressed with Synthroid. A TSH will be obtained today. I will see him in 1 year. Chief Complaint Follow-up status post treatment of an anterior tongue cancer History of Present IllnessThis patient had a right glossectomy and neck dissection for a T4 N2b lesion of his right anterior tongue. His surgery was on June 02, 2014. He has completed a combination chemoradiation therapy in July of 2014. He seems to be doing fairly well. He does not have any discomfort. He is eating everything by mouth. He does avoid the foods that he cannot get down. He denies any pain or discomfort. He had a PET scan in April of 2015 witch was negative. He is on Synthroid. He had a TSH August 2021 which was normal. His last chest x-ray was also in August 2021 and was negative. 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) Dysphagia (787.20) (R13.10) Effects of radiation (990) (T66.XXXA) Epistaxis (784.7) (R04.0) Observation, malignant neoplasm, suspected (V71.1) (Z03.89) Scalp lesion (709.9) (L98.9) Skin lesion of neck (709.9) (L98.9) Past Medical History History of High cholesterol (272.0) (E78.00) History of bronchitis (V12.69) (Z87.09) History of depression (V11.8) (Z86.59) History of diabetes mellitus (V12.29) (Z86.39) History of gastroesophageal reflux (GERD) (V12.79) (Z87.19) History of hypertension (V12.59) (Z86.79) Personal history of arthritis (V13.4) (Z87.39) Personal history of malignant neoplasm (V10.90) (Z85.9) History of Snoring (786.09) (R06.83) History of Thyroid trouble (246.9) (E07.9) Surgical History History of Breast Surgery History of Circumcision No Clamp/Device/Dorsal Slit Older Than 28 Days History of Gallbladder Surgery History of Wound Care Debridement Non-Selective Family History Family history of lung cancer (V16.1) (Z80.1) Family history of myocardial infarction (V17.3) (Z82.49) Family history of rheumatoid arthritis (V17.7) (Z82.61) Family history of cardiac disorder (V17.49) (Z82.49) Family history of colon cancer (V16.0) (Z80.0) Family history of diabetes mellitus (V18.0) (Z83.3) Family history of cardiac disorder (V17.49) (Z82.49) Family history of myocardial infarction (V17.3) (Z82.49) Family history of rheumatoid arthritis (V17.7) (Z82.61) Social History Alcohol use (V49.89) (Z78.9) Drinks beer Drinks wine Never smoker Retired Secondhand smoke exposure (V15.89) (Z77.22) Denied: History of Uses chewing tobacco Uses marijuana (305.20) (F12.90) Allergies Latex Gloves Recorded By: Nettie Macario; 09/20/2022 3:19:32 PM No Known Environmental Allergies Recorded By: Claire Bryan; 10/07/2014 12:15:38 PM No Known Food Allergies Recorded By: Claire Bryan; 10/07/2014 12:15:38 PM Current Meds Medication NameInstruction Albuterol Sulfate HFA AERS Atorvastatin Calcium 40 MG Oral TabletTAKE 1 TABLET BY MOUTH EVERY DAY Carvedilol 6.25 MG Oral TabletTAKE 1 TABLET BY MOUTH TWICE A DAY [facility] Aspirin Adult Low Dose 81 MG Oral Tablet ChewableTAKE 1 TABLET BY MOUTH EVERY DAY Doxepin HCl - 25 MG Oral CapsuleTAKE 1 CAPSULE BY MOUTH DAILY AT BEDTIME Levothyroxine Sodium 75 MCG Oral TabletTAKE ONE TABLET BY MOUTH ONCE DAILY ON AN EMPTY STOMACH Hope SMITH Vitals Vital Signs Recorded: 20Sep2022 03:19PMRecorded: 20Sep2022 03:18PM Tobacco Useb) No PHQ-2 #1. Over the last 2 weeks have you felt down, depressed or hopeless? (If yes, answer PHQ-9 below)No PHQ-2 #2. Over the last 2 weeks have you felt little interest or pleasure in doing things? (If yes, answer PHQ-9 below)No Falls Screening (Age 18+)b) One or more falls in the last year Pain Scale0/10 Height5 ft 7 in Udujex374 lb 9 oz BMI Owilqalnrm67.8 kg/m2 BSA Calculated1.77 Physical Exam On examination the oral cavity and oropharynx are within normal limits. He does have some surgical changes of the anterior tongue on the (more content not included)... [facility]-20-2022 XR Chest 2 Views Please click on the link to view the study images Normal [facility]Otolaryngol [facility] Work Phone: TSHon 09-20-2022 TSH Qn 1.28 m[IU]/L Normal 0.44 - 3.98 [facility] Comment on above: Result Comment: TSH testing is performed using different testing methodology at [facility] than at other system hospitals. Direct result comparisons should only be made within the same method. Performed By: #### T SH2 #### [address] [id number] TSH - Thyroid Stimulating Ho rmone, Serumon 09-20-2022 TSH Qn 1.28 m[IU]/L See Below MG-Otolaryng ol ogy-[facility] Work Phone: Comment on above: Reference Range: 0.4 4 - 3.98 TSH testing is performed using different testing methodology at [facility] than at other [facility]. Direct result comparisons should only be made within the same method. Tobacco Screening.on 022 Adult depression screening assessment No MG-Otolaryngol [facility] Work Phone: Fall risk assessment b) One or more falls in the last year [facility]Otolaryngol [facility] Work Phone: Tobacco use status CPHS b) No [facility]-Otolaryngol o[facility] Work Phone: H PYLORI TISSUEon 12-31-2021 H PYL TISSUE, UREASE Negative Normal NEGATIVE [facility] Comment on above: Performed By: #### H PYLT #### [facility] [address] [address] [address] Berta Thakkar POINT OF CARE GLUCOSEon Glucose [Mass/Vol] 149 mg/dL Critically high 74-106 [facility] Comment on above: Performed By: #### I NFLUAB #### [facility] [address] [address] [address] Berta Thakkar Complete Blood Counton 12-21 Erythrocyte distribution width (RBC) [Ratio] 18.2 % High 11.0-15.0 [facility] Comment on above: Performed By: #### C BC #### [facility] [address] [place], [place] [id number] Hematocrit (Bld) [Volume fraction] 31.4 % Low 38.5-50.0 [facility] Comment on above: Performed By: #### C BC #### [facility] [address] [place], [place] [id number] Hemoglobin (Bld) [Mass/Vol] 9.5 g/dL Low 13.0-17.1 [facility] Comment on above: Performed By: #### C BC #### [facility] [address] [place], [place] [id number] MCH (RBC) [Entitic mass] 26.3 pg Low 27.0-33.0 [facility] Comment on above: Performed By: #### C BC #### [facility] [address] [place], [place] [id number] MCHC (RBC) [Mass/Vol] 30.3 g/dL Low 32.0-36.0 [facility] Comment on above: Performed By: #### C BC #### [facility] [address] [place], [place] [id number] MCV (RBC) [Entitic vol] 87 fL Normal 80-100 [facility] Comment on above: Performed By: #### C BC #### [facility] [address] [place], [place] [id number] Platelet mean volume (Bld) [Entitic vol] 8.50 fL Normal 7.50-12.50 [facility] Comment on above: Performed By: #### C BC #### [facility] [address] [place], [place] [id number] Platelets (Bld) [#/Vol] 180 10*3/uL Normal 140-400 [facility] Comment on above: Performed By: #### C BC #### [facility] [address] [place], [place] [id number] RBC (Bld) [#/Vol] 3.61 10*6/uL Low 4.20-5.80 [facility] Comment on above: Performed By: #### C BC #### [facility] [address] [place], [place] [id number] RDW-SD 57.6 fL High 37.0-50.0 [facility] [place] [facility] Comment on above: Performed By: #### C BC #### [facility] [address] [place], [place] [id number] WBC (Bld) [#/Vol] 4.0 10*3/uL Normal 3.8-11.0 [facility] Administrator Comment on above: Performed By: #### C BC #### [facility] [address] [place], [place] [id number] Radiologyon 09-21-2021 XR Chest 2 Views Please click on the link to view the study images Normal [facility]-Otolaryngol o[facility] Work Phone: XR Chest 2 Views Normal MG-Otola ryngol ogy-[facility] Work Phone: TSH - Thyroid Stimulating Ho yessica, Serumon 09-21-2021 TSH Qn 3.49 m[IU]/L See Below MG-Otolaryng ol ogy-[place] Work Phone: Comment on above: Reference Range: 0.4 4 - 3.98 TSH testing is performed using different testing methodology at [facility] than at other [facility]. Direct result comparisons should only be made within the same method. Tobacco Screening.on Fall risk assessment b) One or more falls in the last year [facility]Otolaryngol [facility] Work Phone: Tobacco use status CPHS b) No [facility]Otolaryngol [facility] Work Phone: Tobacco Screening.on Fall risk assessment a) No falls within the last year [facility]Otolaryngol [facility] Work Phone: Tobacco use status CPHS b) No [facility]Otolaryngol [facility] Work Phone: ANES POSTPROC EVALon ANES POSTPROC EVAL HNO ID: [id number] Author: Umesh Mitchell Service: Anesthesiology Author Type: Physician Type: Anesthesia Postprocedure Evaluation Filed: 01/04/2021 10:21 AM Note Text: POST ANESTHESIA EVALUATION NOTE : 1950 Procedure Summary Date: 01/04/21 Room / Location: [address] Anesthesia Start: 924 Anesthesia Stop: 949 Procedures: PHACOEMULSIFICATION CATARACT IMPLANT INTRAOCULAR LENS W/O ENDOSCOPIC CYCLOPHOTOCOAGULATION (Right Eye) OPHTHALMIC BIOMETRY BY PARTIAL COHERENCE INTERFEROMETRY W/INTRAOCULAR LENS POWER CALCULATION (Right Eye) Diagnosis: Combined forms of age-related cataract of both eyes Surgeons: Jerri Valencia V Responsible Provider: Umesh Mitchell Anesthesia Type: MAC ASA Status: 3 Anesthesia Type: MAC Last vitals Vitals Value Taken Time BP 122/72 01/04/21 1001 Temp 36.7 ?C (98.1 ?F) 01/04/21 0951 HR SpO2 67 01/04/21 1001 Resp 14 01/04/21 1001 SpO2 97 % 01/04/21 1001 Post Anesthesia Patient Status Patient Evaluation: PACU. PACU/ICU Patient Condition: stable. Anticipated Disposition: phase 2 then home. Neurological Status: aware and responsive. Pulmonary Status: breathing comfortably on room air Airway Control: returned to baseline unsupported. Cardiovascular Status: stable. Pain Management: satisfactory to patient Postoperative Hydration: acceptable. Intraoperative Events: no significant anesthesia events Recommendation: continue current plan of care. SIGNATURE: Umesh Mitchell MD PATIENT NAME: Roxann Rm DATE: January 04, 2021 TIME: 10:21 AM CSN: [id number] [facility] ANES PRE-OPon 01-04-2021 ANES PRE-OP HNO ID: [id number] Author: Umesh Mitchell Service: Anesthesiology Author Type: Physician Type: Anesthesia Preprocedure Evaluation Filed: 01/04/2021 8:48 AM Note Text: ANESTHESIOLOGY DAY OF SURGERY NOTE : 1950 Procedure(s) (LRB): PHACOEMULSIFICATION CATARACT IMPLANT INTRAOCULAR LENS W/O ENDOSCOPIC CYCLOPHOTOCOAGULATION (Right) OPHTHALMIC BIOMETRY BY PARTIAL COHERENCE INTERFEROMETRY W/INTRAOCULAR LENS POWER CALCULATION (Right) Surgeon(s): Jerri Valencia V Estimated body mass index is 22.71 kg/m? as calculated from the following: Height as of 12/21/20: 170.2 cm (5' 7 ). Weight as of 12/21/20: 65.8 kg (145 lb). Most recent hematocrit and potassium results: No results found for this basename: HCT,HEMATOCRIT,K,POTASS IUM Relevant Problems CARDIO (+) Hypertension Other (+) Diabetes (HCC) (+) High cholesterol (+) Throat cancer (HCC) (+) Thyroid disease I - PHYSICAL EVALUATION AIRWAY Patient intubated: No. Mallampati: II. TM distance: >3 FB. Neck ROM: full. Mouth opening: adequate. Short neck: no. DENTAL Normal dental observations. Dental findings: teeth intact. Additional exam findings: no II - ANESTHESIA PLAN ASA Score: 3 Anesthetic Plan: MAC NPO Status: adequate Monitoring plan: Standard ASA. Postoperative analgesic plan: parenteral or oral opioids. Anesthetic Risks, Benefits, Alternatives, Personnel Discussed. Consent obtained from: patient.Patient / Surrogate agrees to blood products: blood products not planned Significant changes in the patient condition since the History and Physical, not otherwise documented in primary service progress note: no. Potential Anesthesia issues that may suggest increased risk of complications or contraindication to planned procedure: none. Vitals Value Taken Time BP 167/91 01/04/21 0846 Pulse 63 01/04/21 0846 Resp 16 01/04/21 0846 Temp 36.2 ?C (97.1 ?F) 01/04/21 0846 SpO2 99 % 01/04/21 0846 Facility-Administered Medications as of 01/04/2021 Medication Dose Route Frequency - [COMPLETED] tetracaine (PF) 0.5 % 2 Drop (OPTICAINE) 2 Drop LEFT EYE q 5 MIN - [COMPLETED] PHENYLephrine 2.5 % 1 Drop (AK-DILATE, TEO-SYNEPHRINE) 1 Drop LEFT EYE EVERY 5 MINUTES X 3 DOSES - [COMPLETED] tropicamide 1 % 1 Drop (MYDRIACYL) 1 Drop LEFT EYE EVERY 5 MINUTES X 3 DOSES - [COMPLETED] keTORolac 0.5 % 1 Drop (ACULAR) 1 Drop LEFT EYE q 5 MIN - [COMPLETED] Povidone-Iodine 5 % 30 mL ophth soln (BETADINE) 30 mL LEFT EYE ONCE - [COMPLETED] balanced salts 15 mL (BSS) 15 mL LEFT EYE ONCE Outpatient Medications as of 01/04/2021 Medication Sig - prednisoLONE acetate (PRED FORTE, ECONOPRED PLUS) 1 % ophthalmic suspension USE DIRECTED BY PHYSICIAN, IN OPERATIVE EYE, BEGINNING ONE DAY AFTER SURGERY - keTORolac (ACULAR) 0.5 % ophthalmic solution USE DIRECTED BY PHYSICIAN, IN OPERATIVE EYE, BEGINNING ONE DAY AFTER SURGERY - atorvastatin (LIPITOR) 40 mg tablet Take 40 mg by mouth once daily. - carvedilol (COREG) 6.25 mg tablet Take 6.25 mg by mouth twice daily. - hydroCHLOROthiazide (HYDRODIURIL, ESIDRIX) 25 mg tablet Take 25 mg by mouth once daily. - lisinopril (ZESTRIL, PRINIVIL) 20 mg tablet Take 20 mg by mouth once daily. I have interviewed and examined the patient. I have reviewed the medical record and/or the pre-anesthesia evaluation, pertinent labs, and test results. This contains updated information obtained within 48 hours of Surgery/Procedure. SIGNATURE: Umesh Mitchell MD PATIENT NAME: Roxann Rm DATE: January 04, 2021 TIME: 8:48 AM CSN: [id number] Normal [facility] OPERATIVE NOon 01-04-2021 OPERATIVE NO HNO ID: [id number] Author: Jerri Valencia V Service: Ophthalmology Author Type: Physician Type: Operative Report Filed: 01/04/2021 9:50 AM Note Text: OPERATIVE REPORT DATE OF SERVICE: January 04, 2021 PRIMARY SURGEONS: Jerri Valencia MD WINDOWS 7 DEPLOYMENT LEAD: None Procedure(s) (LRB): PHACOEMULSIFICATION CATARACT IMPLANT INTRAOCULAR LENS W/O ENDOSCOPIC CYCLOPHOTOCOAGULATION (Right) OPHTHALMIC BIOMETRY BY PARTIAL COHERENCE INTERFEROMETRY W/INTRAOCULAR LENS POWER CALCULATION (Right) PREOPERATIVE DIAGNOSIS: Combined cataract and regular astigmatism POSTOPERATIVE DIAGNOSIS: Combined cataract, regular astigmatism, presbyopia. OPERATIVE INDICATIONS: BAT 20/400 ANESTHESIA: Topical with monitored anesthesia care. OPERATIVE PROCEDURE: The patient was admitted to the operating suite where an IV and BP, EKG, and O2 monitors were placed. Nasal oxygen was administered. The operative eye was confirmed, marked, then pretreated with 2.5% tropicamide, 1% phenylephrine, and ciprofloxacin eye drops. Tetracaine drops were placed in the eye, then the patient was positioned seated on the side of the bed. With the patient fixing on a distant target, we placed munoz at the 3 and 9 o?clock position at the surgical limbus using a purple surgical marker. After repositioning the patient in the supine position, topical lidocaine gel 2% was placed in a small ribbon in the lower cul-de-sac. The patient was then prepped and draped in the usual sterile fashion for intraocular surgery. After a time-out confirming correct patient, correct eye, correct operation, presence of allergies, and correct implant, an eyelid speculum was placed. Under the operating microscope a beveled clear corneal incision was created temporally with a [place] blade then a 2.4 mm keratome. The anterior chamber was reformed with Viscoat, after which the anterior capsule was opened centrally. Using the Utrata forceps a continuous curvilinear capsulorrhexis of approximately 5.5 mm round was created. Gentle hydrodissection was accomplished using preservative-free lidocaine on a 27-gauge canula. Using the Rafael phacoemulsification unit with the Kelman curved tip, the anterior chamber was entered and the nucleus was removed while it was in the bag. The epinuclear ring was dissected into several segments, then removed using the phacoemulsification unit set to the desired aspiration flow rate and ultrasound parameters. Great care was taken not to violate the posterior capsule. The silicone-tipped I and A instrument was used to remove the cortex and buff off any remaining cataractous material from the posterior capsule. The capsular bag was then reformed with Discovisc and a 21.5 SA6AT4 cylindrical power toric AcrySof lens was inserted through the lips of the wound into the capsular bag. The intraocular lens was then rotated to an axis of 6 degrees, using the previously placed scleral ink markings as a guide. The axis determination was dictated by the preoperative vector analysis. Using the I and A instrument, the Discovisc was removed from the anterior chamber and capsular bag, and the implant was centered. Cefuroxime 1mg in 0.1 mL normal saline was introduced into the anterior chamber through the clear corneal incision using a 30 gauge cannula. The wound was checked and found to be watertight. At the end of the procedure, the cornea was clear, the anterior chamber was deep and clear, the pupil was round, the implant was centered and at the appropriate rotational axis within the capsular bag, and the posterior capsule was intact. The eyelid speculum was removed and timolol and Maxitrol eye drops were administered. A shield was affixed over the eye and the patient was sent to the recovery room, leaving the operating room in excellent condition. ESTIMATED BLOOD LOSS: <1mL SPECIMEN: None FINDINGS: Age-related cataract, zonular insufficiency superiorly COMPLICATIONS: None Incision/Procedure Start Time: 9:38 AM Incision Close/Procedure End Time: 9:47 AM - Comanage with Dr Johanne Olivares; [facility] POD #1 Jerri VALENCIA MD Normal [facility] Other 07-23-2019 XR Chest 2 views Please click on the link to view the study images Normal MG-Otolaryngol [employer] Work Phone: XR Chest 2 views Interpreted by: PIPE JAMES07/24/19 07:51MRN: [id number] Name: ROXANN RM JR STUDY:TH CHEST 2 VIEW PA AND LAT; 07/23/2019 12:50 pm INDICATION:hx head and neck cancer; assess for pulm mets. COMPARISON:07/10/2018 and 07/04/2017 ORDERING CLINICIAN:APOLLO LOPES TECHNIQUE:2 radiographs of the chest were performed. FINDINGS:There are low lung volumes. The heart is of normal size and contour.The pulmonary vessels are within normal limits and stable. A faintnodular density overlies the right lung base measuring 1 cm diameterwhich is remained stable from studies dating back to 07/04/2017 andcould reflect nipple shadow. There is otherwise no airspaceconsolidation, pleural effusion, or pneumothorax. The osseousstructures are demineralized though intact and stable. IMPRESSION:No sign of acute cardiopulmonary disease or interval change from07/10/2018. 1 cm nodular density overlies the right lung base and isremain stable in the interval. This appearance could be related tonipple shadow. The interval stability from 2017 suggests benignetiology.Electron ically signed by: PIPE JAMES 07/24/19 07:51 Normal [facility]-Otolaryngol ogy[facility] Work Phone: TSH - Thyroid Stimulating Ho rmone, Serumon 07-23-2019 TSH Qn 3.90 {mIU/L} See Below MG-Otolaryng ol ogy-[facility] Work Phone: Comment on above: Reference Range: 0.4 4 - 3.98 TSH testing is performed using different testing methodology at [facility] than at other [facility]. Direct result comparisons should only be made within the same method.. Patients receiving more than 5 mg/day of biotin may have interference in test results. A sample should be taken no sooner than eight hours after previous dose. Contact [phone] for additional information. Social History Date Type Detail Facility Start: 09-19-2023 Drinks beer Drinks beer [facility]Otolary ngology[facility] Work Phone: Start: 09-19-2023 Sex Assigned At [employer] Other Start: 09-19-2023 Tobacco use and exposure Smokeless tobacco non-user [facility] Work Phone: Start: 09-09-2023 End: 09-19-2023 Exposure to SARS-CoV-2 (event) Not sure [facility] Start: 06-16-2022 End: 06-16-2022 Tobacco smoking status ILIS Never smoked tobacco (finding) [facility] Start: 1950 Sex Assigned At Male [facility] Start: 1950 Sex Assigned At Not on file [facility] Tobacco smoking status ILIS Tobacco smoking consumption unknown [facility] NEGATED: Highlighted row - - PQ-Gpwnfuhkgbiajj[facility] Work Phone: Vital Signs Date Time Vital Sign Value Performing Clinician Facility 09-19-2023 16:16-0400 Body height 170.2 cm Apollo Lopes MD Work Phone: [facility] 09-19-2023 16:16-0400 Body mass index (BMI) [Ratio] 22.24 kg/m2 Apollo Lopes MD Work Phone: [facility] 09-19-2023 16:16-0400 Body weight 64.41 kg Apollo Lopes MD Work Phone: [facility] 12-28-2022 21:00-0500 Diastolic blood pressure 67 mm[Hg] Et3 [employer] 12-28-2022 21:00-0500 Heart rate 68 /min Et3 [employer] 12-28-2022 21:00-0500 Respiratory rate 18 /min Et3 [facility] [employer] 12-28-2022 21:00-0500 SaO2% (BldA) [Mass fraction] 76 % Et3 [employer] 12-28-2022 21:00-0500 Systolic blood pressure 112 mm[Hg] Et3 [facility] [employer] 09-20-2022 15:19-0400 0 1 [employer] Work Phone: RY-Bsfweprreudssp-[place] Work Phone: Comment on above: [employer] 09-20-2022 15:18-0400 Body height 170.18 cm [employer] Work Phone: NA-Gwzhyfdfafumbj-Ub [place] Work Phone: 09-20-2022 15:18-0400 Body mass index (BMI) [Ratio] 22.8 kg/m2 [employer] Work Phone: RC-Tzankxixxuqbxq-Aa [place] Work Phone: 09-20-2022 15:18-0400 Body surface area Derived from formula 1.77 m2 [employer] Work Phone: LP-Knzhiebdnxvlhl-Qr [place] Work Phone: 09-20-2022 15:18-0400 Body weight 66.03 kg [employer] Work Phone: DQ-Csknizzopsjmui-Yf [place] Work Phone: 03-31-2022 10:30-0400 Body height 170.18 cm Luis Moe Other [employer] Other 05-05-2022 10:30-0400 Body mass index (BMI) [Ratio] 22.71 kg/m2 Luis Moe Other [employer] Other 03-31-2022 10:30-0400 Body weight 65.77 kg Luis Moe Other [employer] Other 09-21-2021 13:36-0400 Body height 170.18 cm [employer] Work Phone: FR-Otbzgolpvumdoc-Zn [place] Work Phone: 09-21-2021 13:36-0400 Body mass index (BMI) [Ratio] 23.95 kg/m2 [employer] Samantha Work Phone: IJ-Ovmnnaniquwcim-Zm [place] Work Phone: 09-21-2021 13:36-0400 Body surface area Derived from formula 1.8 m2 [employer] Work Phone: IT-Uxfmjwqgnrnfum-Wv [place] Work Phone: 09-21-2021 13:36-0400 Body temperature 96.8 [degF] [employer] Gonzalez Samantha Work Phone: SD-Fpxzwzjpscdbqy-Kb [place] Work Phone: 09-21-2021 13:36-0400 Body weight 69.36 kg [employer] Gonzalez Samantha Work Phone: VN-Fhrdrpbydcwcug-Gl [place] Work Phone: 07-06-2021 15:59-0400 Body height 170.18 cm [employer] [place] Work Phone: HM-Fxcnjydylwxnpp-Lk [place] Work Phone: 07-06-2021 15:59-0400 Body mass index (BMI) [Ratio] 23.81 kg/m2 [employer] Work Phone: NU-Dyyiickdeqsorg-Rk [place] Work Phone: 07-06-2021 15:59-0400 Body surface area Derived from formula 1.8 m2 [employer] Gonzalez Marbury Work Phone: DR-Exgkpjnkvxjmrm-Jx [employer] Work Phone: 07-06-2021 15:59-0400 Body temperature 97.3 [degF] [employer] Work Phone: UD-Eryhmbyjuswkav-Nz [employer]ra Work Phone: 07-06-2021 15:59-0400 Body weight 68.95 kg [employer] Gonzalez You[employer] Work Phone: PD-Jpbarklgdgxssj-Rj [employer]Cell[facility]ra Work Phone: Functional Status Date Assessment Result Facility NEGATED: Highlighted row Functional performance Functional status health issues are not documented Disease GL-Jjpundcjjyrqao-K [employer] Work Phone: Mental Status Date Assessment Result Facility NEGATED: Highlighted row Cognitive function [Interpretation] Cognitive status health issues are not documented Disease UP-Mrebcdzomvezsi-H [place] Work Phone: Clinical Notes 06-02-2014 to 09-19-2023 Apollo Lopes MD - 09/19/2023 4:15 PM Em Zuniga MD - 12/28/2022 8:54 PM EST Note Date & Type Note Facility 09-19-2023 History of Present illness Narrative Provider Impressions No evidence of any recurrence of the patient's previous a treated tongue cancer. Dysphagia which seems to be stable. Hypothyroidism which is being addressed with Synthroid. I will see him in 1 year. Chief Complaint Follow-up status post treatment of an anterior tongue cancer History of Present Illness This patient had a right glossectomy and neck dissection for a T4 N2b lesion of his right anterior tongue. His surgery was on June 02, 2014. He has completed a combination chemoradiation therapy in July of 2014. He seems to be doing fairly well. He does not have any discomfort. He is eating everything by mouth. He does avoid the foods that he cannot get down. He does not believe that this is any worse. He denies any pain or discomfort. He had a PET scan in April of 2015 witch was negative. He is on Synthroid. He had a TSH in May 2023 which was normal. His last chest x-ray was also in November 2022 showed some COPD and possible aspiration. Physical Exam On examination the oral cavity and oropharynx are within normal limits. He does have some surgical changes of the anterior tongue on the right. There is good mobility of the tongue. There is good mandibular excursion. Palpation of the neck does not show any worrisome masses or adenopathies. A flexible laryngoscopy was carried out. Under topical Xylocaine and Teo-Synephrine the scope was introduced through the nostril. The nasopharynx, base of tongue, hypopharynx, and larynx are visualized. The vocal cords are normally mobile. The area looks fairly dry today. There is no evidence of any mucosal lesions. documented in this encounter [facility] Work Phone: 12-28-2022 History of Present illness Narrative Images from the original note were not included. EMERGENCY TRIAGE, TREAT AND TRANSPORT (ET3) DOCUMENTATION OF TELEHEALTH VISIT Date / Time: 12/28/20222099 Name: Roxann Rm : 1950 SSN: (Not on file) EMS Agency: [facility] [x] Verbal consent obtained [] Implied consent - patient with potential emergency medical condition requiring assessment of capacity to refuse treatment and/or transport VITAL SIGNS: see flowsheet documentation Reason for Telehealth Visit: Chief Complaint Patient presents with Weak felt lightheaded just after standing up. Lowered himself to floor. History of Present Illness: Recent covid few weeks ago with prolonged hospitalization. Now home for past few weeks. Stood up quickly and felt lightheaded. Lowered himself down and now feels completely back to baseline. Denies cp, sob. Exam: General: Awake, no distress ENT: normocephalic, atraumatic Pulmonary: No respiratory distress, speaking complete sentences Cardiovascular: Well perfused Neurologic: Oriented to person, place, time and events. Moving all extremities equally. Psychiatric: Appropriate. Good insight and judgement. Medical Decision Making: Patient with episode likely orthostatic lightheadedness today. Now oriented and declines transport. Noted significant hypoxia. Patient was advised that he requires oxygen at this level and needs to go to the hospital immediately as he is at risk of acute neuro, cardiovascular or pulm decompensation, . Patient able to verbalize understanding of this concern. Able to repeat my concerns back to me and states he just doesn't want to go back to the hospital now as he was just admitted for so long earlier this month. Family in room and also attempt to persuade patient but patient continues to refuse transport. Patient willing to sign AMA form. Patient advised to come to hospital immediately if he changes his mind and contact his doctor as soon as possible. Disposition Supported by Telehealth Assessment: ET3 transport decisions: Refused transport EMS Disposition Reported: Same ET3 Encounter Completed by: Em Staples MD documented in this encounter [facility] 03-31-2022 Evaluation note Encounter Date Diagnosis Assessment Notes March, Asymptomatic stenosis of right carotid artery (ICD-10 - I65.21) I did review the duplex results with the patient today in the office. Based on the new carotid interpretation criteria set forth by the IAC, the patient does not have any significant stenoses at this time. Therefore there is no indication to continue surveillance. I recommend discharge from the office. This is not to say that the patient does not have plaque. He does have plaque that is but is less than 50%. Therefore I would recommend continuing aspirin and statin therapy for life. He does not need any further surveillance of his carotid arteries. [facility] Other 02-04-2022 NoteOPERATIVE NOTE PREOPERATIVE DIAGNOSIS: Anemia. POSTOPERATIVE DIAGNOSIS: Gastritis, sigmoid diverticulosis. PROCEDURE PERFORMED: EGD with biopsy x1 from the antrum of the stomach, colonoscopy. SURGEON: Donya Paredes M.D. ANESTHESIA: Monitored anesthesia care. DISPOSITION: To [facility] in fair condition. PROCEDURE: Patient was brought in to the endoscopy suite, was placed in the left lateral decubitus position. He was sedated by the anesthesiologist. Bite block was placed in his mouth. Gastroscope was lubricated, advanced through the bite block, into the oropharynx and down the esophagus. There was no evidence of any strictures or lesions. Upon entering the stomach, the gastric mucosa was moderately inflamed. The endoscope was advanced through the pylorus and into the duodenum. The duodenal bulb and sweep appeared normal. The scope was then removed. The biopsy from the antrum of the stomach was obtained. There was no evidence of any gastric or esophageal varices. Next, the operating cart was turned. A digital rectal exam was performed that showed no evidence of any mass, hemorrhoids or fissures. The colonoscope was lubricated and introduced into the anus and advanced slowly. In the sigmoid colon, he had diverticulosis. There was no evidence of diverticulitis. The colonoscope continued to be advanced until reaching the cecum. The cecal markings were identified. The scope was then removed. It was retroflexed in the rectum. Patient tolerated the procedure without any difficulty. He should have a repeat colonoscopy in five years. [facility] Signed and Approved by: DR DONYA PAREDES . 01/08/2022 14:40:00[facility]02-04-2022 NoteOPERATIVE NOTE PREOPERATIVE DIAGNOSIS: Anemia. POSTOPERATIVE DIAGNOSIS: Gastritis, sigmoid diverticulosis. PROCEDURE PERFORMED: EGD with biopsy x1 from the antrum of the stomach, colonoscopy. SURGEON: Donya Paredes M.D. ANESTHESIA: Monitored anesthesia care. DISPOSITION: To [facility] in fair condition. PROCEDURE: Patient was brought in to the endoscopy suite, was placed in the left lateral decubitus position. He was sedated by the anesthesiologist. Bite block was placed in his mouth. Gastroscope was lubricated, advanced through the bite block, into the oropharynx and down the esophagus. There was no evidence of any strictures or lesions. Upon entering the stomach, the gastric mucosa was moderately inflamed. The endoscope was advanced through the pylorus and into the duodenum. The duodenal bulb and sweep appeared normal. The scope was then removed. The biopsy from the antrum of the stomach was obtained. There was no evidence of any gastric or esophageal varices. Next, the operating cart was turned. A digital rectal exam was performed that showed no evidence of any mass, hemorrhoids or fissures. The colonoscope was lubricated and introduced into the anus and advanced slowly. In the sigmoid colon, he had diverticulosis. There was no evidence of diverticulitis. The colonoscope continued to be advanced until reaching the cecum. The cecal markings were identified. The scope was then removed. It was retroflexed in the rectum. Patient tolerated the procedure without any difficulty. He should have a repeat colonoscopy in five years.[facility] NoteHNO ID: [id number] Author: Dayday Priest (Od) Hong Service: ? Author Type: MAIL ORDER SORTER Type: Progress Notes Filed: 01/05/2021 10:27 AM Note Text: ASSESSMENT/PLAN: 1. Pseudophakia of both eyes - ICD9: V43.1, ICD10: Z96.1 (primary diagnosis) Doing well surgically 1 day post-op Right eye with moderate corneal edema Doing well 2 weeks post-op Left eye SHOOT for PLANO Both eyes T4 TORIC Right eye and IQ IOL Left eye The patient was instructed to.... 1. Use the Prednisolone Acetate 4 times a day for 10 days after surgery, and then taper the Prednisolone Acetate over 15 days (decreasing by 1 drop every 5 days). 2. Use the Ketorolac 4 times a day for 10 days after surgery, and then taper the Ketorolac over 15 days (decreasing by 1 drop every 5 days). Wear the eye shield at night over the operative eye while sleeping, refrain from rubbing or touching the eye, wear dark sunglasses while outside, to not get any tap water in the eye or to swim, not wear any eye makeup (if applicable), and refrain from heavy lifting for a total of TEN DAYS after surgery. The signs and symptoms of a retinal tear/detachment (flashes, floaters, or change in peripheral vision) were reviewed with the patient as well as the signs and symptoms of infection (decreased vision, red eye, painful eye, or eyelid swelling). Call or return to our office immediately if any of these symptoms are present. Signs and symptoms of infection in the operative eye can include the following: - Increased pain - Increased redness - Increased light sensitivity - A sudden decrease in vision Signs and symptoms of retinal detachment can include the following: - Increasing floaters (spider web like) - Continuous or very bright flashes - Curtain or veil across the vision Please call our office if any of these symptoms occur at option #4. These are possible signs of retinal detachment and may require immediate medical attention. 2. 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 I have seen and examined this patient. I also have reviewed and agree with the assessment and plan as stated above and agree with all of its relevant components. Dayday Hong, OD January 05, 2021 10:24 [facility]01-26-2021 NoteHNO ID: [id number] Author: Jerri Valencia V Service: ? Author Type: Physician Type: Progress Notes Filed: 12/22/2020 9:37 AM Note Text: The documentation for this note was completed by Argentina Lynch, ALINA acting as a scribe for Jerri VALENCIA MD. 12/22/2020 9:36 AM. Post-op day #1 status-post cataract extraction with intraocular lens insertion, left eye. Doing well. Written instructions detailing the following given: - Prednisolone Acetate 1% 1 drop six times a day x 5d, then qid - Ketorolac 0.5% 1 drop four times a day - Eye shield at bedtime for 1 week - Signs and symptoms of retinal detachment and infection reviewed - Follow up with Dr Olivares on 12/28 as scheduled. The documentation recorded by the scribe accurately reflects the service I personally performed and the decisions made by me. I have confirmed and edited as necessary the relevant ophthalmic history, ROS, and the exam findings as obtained by others. I have seen and examined Roxann Rm. I also have reviewed and agree with the assessment and plan as stated above and agree with all of its relevant components. Jerri VALENCIA MD December 22, 2020 9:36 [facility]07-07-2014 History of Present illness NarrativeThis patient had a right glossectomy and neck dissection for a T4 N2b lesion of his right anterior tongue. His surgery was on June 02, 2014. He has completed a combination chemoradiation therapy in July of 2014. He seems to be doing fairly well. He does not have any discomfort. He is eating everything by mouth. He does avoid the foods that he cannot get down. He denies any pain or discomfort.He had a PET scan in April of 2015 witch was negative. He is on Synthroid. He had a repeat TSH in September 2020 was normal. His last chest x-ray was also in August 2020 and was negative. He is here today a little early for his appointment because he has had some issues with bring him some clots of back in his throat mainly in the morning. He does have some slight throat soreness.[facility] Work Phone: 1(143) 124-821007-07-2014 History of Present illness NarrativeThileni patient had a right glossectomy and neck dissection for a T4 N2b lesion of his right anterior tongue. His surgery was on June 02, 2014. He has completed a combination chemoradiation therapy in July of 2014. He seems to be doing fairly well. He does not have any discomfort. He is eating everything by mouth. He does avoid the foods that he cannot get down. He denies any pain or discomfort.He had a PET scan in April of 2015 witch was negative. He is on Synthroid. He had a repeat TSH in September 2020 was normal. His last chest x-ray was also in August 2020 and was negative.[facility] Work Phone: [phone]) 385-555807-07-2014 History of Present illness NarrativeThileni patient had a right glossectomy and neck dissection for a T4 N2b lesion of his right anterior tongue. His surgery was on June 02, 2014. He has completed a combination chemoradiation therapy in July of 2014. He seems to be doing fairly well. He does not have any discomfort. He is eating everything by mouth. He does avoid the foods that he cannot get down. He denies any pain or discomfort.He had a PET scan in April of 2015 witch was negative. He is on Synthroid. He had a TSH August 2021which was normal. His last chest x-ray was also in August 2021 and was negative.[facility] Work Phone: Evaluation noteNo assessment information available [facility] Work Phone: Evaluation note* Diagnosis Lightheaded- Primary Dizziness and giddiness Hypoxia Hypoxemia [facility] 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)- Primary 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, part unspecified Acquired hypothyroidism Unspecified hypothyroidism Oropharyngeal dysphagia Dysphagia, oropharyngeal phase documented in this encounter [facility] Work Phone: History general Narrative - Reported* Type Description Date Medical History DM 2 Medical History Hx of skin cancer Medical History hyperlipidemia Medical History hypertension Medical History tongue cancer Surgical History Right knee arthroscopy Surgical History rotator cuff repair Surgical History tongue resection [facility] Other Family History No Family History Records Found aunt Name Dates Details Family history of cardiac di sorder(V17.49, Z82.49) Status:Active Family history of myocardial infarction(V17.3, Z82.49) Status:Active Family history of rheumatoid arthritis(V17.7, Z82.61) Status:Active Mother Name Dates Details Family history of lung cance r(V16.1, Z80.1) Status:Active Family history of myocardial infarction(V17.3, Z82.49) Status:Active Family history of rheumatoid arthritis(V17.7, Z82.61) Status:Active Father Name Dates Details Family history of cardiac di sorder(V17.49, Z82.49) Status:Active Family history of colon canc er(V16.0, Z80.0) Status:Active Sister Name Dates Details Family history of diabetes m ellitus(V18.0, Z83.3) Status:Active aunt Name Dates Details Family history of cardiac di sorder(V17.49, Z82.49) Status:Active Family history of myocardial infarction(V17.3, Z82.49) Status:Active Family history of rheumatoid arthritis(V17.7, Z82.61) Status:Active Mother Name Dates Details Family history of lung cance r(V16.1, Z80.1) Status:Active Family history of myocardial infarction(V17.3, Z82.49) Status:Active Family history of rheumatoid arthritis(V17.7, Z82.61) Status:Active Father Name Dates Details Family history of cardiac di sorder(V17.49, Z82.49) Status:Active Family history of colon canc er(V16.0, Z80.0) Status:Active Sister Name Dates Details Family history of diabetes m ellitus(V18.0, Z83.3) Status:Active aunt Name Dates Details Family history of cardiac di sorder(V17.49, Z82.49) Status:Active Family history of myocardial infarction(V17.3, Z82.49) Status:Active Family history of rheumatoid arthritis(V17.7, Z82.61) Status:Active Mother Name Dates Details Family history of lung cance r(V16.1, Z80.1) Status:Active Family history of myocardial infarction(V17.3, Z82.49) Status:Active Family history of rheumatoid arthritis(V17.7, Z82.61) Status:Active Father Name Dates Details Family history of cardiac di sorder(V17.49, Z82.49) Status:Active Family history of colon canc er(V16.0, Z80.0) Status:Active Sister Name Dates Details Family history of diabetes m ellitus(V18.0, Z83.3) Status:Active aunt Name Dates Details Family history of cardiac di sorder(V17.49, Z82.49) Status:Active Family history of myocardial infarction(V17.3, Z82.49) Status:Active Family history of rheumatoid arthritis(V17.7, Z82.61) Status:Active Mother Name Dates Details Family history of lung cance r(V16.1, Z80.1) Status:Active Family history of myocardial infarction(V17.3, Z82.49) Status:Active Family history of rheumatoid arthritis(V17.7, Z82.61) Status:Active Father Name Dates Details Family history of cardiac di sorder(V17.49, Z82.49) Status:Active Family history of colon canc er(V16.0, Z80.0) Status:Active Sister Name Dates Details Family history of diabetes m ellitus(V18.0, Z83.3) Status:Active Unknown Family Member Name Dates Details Family history of lung cance r: Mother(V16.1, Z80.1) Status:Active Family history of diabetes m ellitus: Sister(V18.0, Z83.3) Status:Active Family history of cardiac di sorder: Father, Aunt(V17.49, Z82.49) Status:Active Family history of myocardial infarction: Mother, Aunt(V17.3, Z82.49) Status:Active Family history of rheumatoid arthritis: Mother, Aunt(V17.7, Z82.61) Status:Active Family history of colon canc er: Father(V16.0, Z80.0) Status:Active Unknown Family Member Name Dates Details Family history of lung cance r: Mother(V16.1, Z80.1) Status:Active Family history of diabetes m ellitus: Sister(V18.0, Z83.3) Status:Active Family history of cardiac di sorder: Father, Aunt(V17.49, Z82.49) Status:Active Family history of myocardial infarction: Mother, Aunt(V17.3, Z82.49) Status:Active Family history of rheumatoid arthritis: Mother, Aunt(V17.7, Z82.61) Status:Active Family history of colon canc er: Father(V16.0, Z80.0) Status:Active Unknown Family Member Name Dates Details Family history of lung cance r: Mother(V16.1, Z80.1) Status:Active Family history of diabetes m ellitus: Sister(V18.0, Z83.3) Status:Active Family history of cardiac di sorder: Father, Aunt(V17.49, Z82.49) Status:Active Family history of myocardial infarction: Mother, Aunt(V17.3, Z82.49) Status:Active Family history of rheumatoid arthritis: Mother, Aunt(V17.7, Z82.61) Status:Active Family history of colon canc er: Father(V16.0, Z80.0) Status:Active Unknown Family Member Name Dates Details Family history of lung cance r: Mother(V16.1, Z80.1) Status:Active Family history of diabetes m ellitus: Sister(V18.0, Z83.3) Status:Active Family history of cardiac di sorder: Father, Aunt(V17.49, Z82.49) Status:Active Family history of myocardial infarction: Mother, Aunt(V17.3, Z82.49) Status:Active Family history of rheumatoid arthritis: Mother, Aunt(V17.7, Z82.61) Status:Active Family history of colon canc er: Father(V16.0, Z80.0) Status:Active Unknown Family Member Name Dates Details Family history of lung cance r: Mother(V16.1, Z80.1) Status:Active Family history of diabetes m ellitus: Sister(V18.0, Z83.3) Status:Active Family history of cardiac di sorder: Father, Aunt(V17.49, Z82.49) Status:Active Family history of myocardial infarction: Mother, Aunt(V17.3, Z82.49) Status:Active Family history of rheumatoid arthritis: Mother, Aunt(V17.7, Z82.61) Status:Active Family history of colon canc er: Father(V16.0, Z80.0) Status:Active Unknown Family Member Name Dates Details Family history of lung cance r: Mother(V16.1, Z80.1) Status:Active Family history of diabetes m ellitus: Sister(V18.0, Z83.3) Status:Active Family history of cardiac di sorder: Father, Aunt(V17.49, Z82.49) Status:Active Family history of myocardial infarction: Mother, Aunt(V17.3, Z82.49) Status:Active Family history of rheumatoid arthritis: Mother, Aunt(V17.7, Z82.61) Status:Active Family history of colon canc er: Father(V16.0, Z80.0) Status:Active Unknown Family Member Name Dates Details Family history of lung cance r: Mother(V16.1, Z80.1) Status:Active Family history of diabetes m ellitus: Sister(V18.0, Z83.3) Status:Active Family history of cardiac di sorder: Father, Aunt(V17.49, Z82.49) Status:Active Family history of myocardial infarction: Mother, Aunt(V17.3, Z82.49) Status:Active Family history of rheumatoid arthritis: Mother, Aunt(V17.7, Z82.61) Status:Active Family history of colon canc er: Father(V16.0, Z80.0) Status:Active Unknown Family Member Name Dates Details Family history of lung cance r: Mother(V16.1, Z80.1) Status:Active Family history of diabetes m ellitus: Sister(V18.0, Z83.3) Status:Active Family history of cardiac di sorder: Father, Aunt(V17.49, Z82.49) Status:Active Family history of myocardial infarction: Mother, Aunt(V17.3, Z82.49) Status:Active Family history of rheumatoid arthritis: Mother, Aunt(V17.7, Z82.61) Status:Active Family history of colon canc er: Father(V16.0, Z80.0) Status:Active Unknown Family Member Name Dates Details Family history of rheumatoid arthritis: Mother, Aunt(V17.7, Z82.61) Status:Active Family history of myocardial infarction: Mother, Aunt(V17.3, Z82.49) Status:Active Family history of cardiac di sorder: Father, Aunt(V17.49, Z82.49) Status:Active Family history of diabetes m ellitus: Sister(V18.0, Z83.3) Status:Active Family history of lung cance r: Mother(V16.1, Z80.1) Status:Active Family history of colon canc er: Father(V16.0, Z80.0) Status:Active Relationship Condition Age at Onset Recorded Date/T familia father Unknown family member Unknown Not Specified Unknown Chief Complaint Follow-up status post treatment of an anterior tongue cancerFollow-up status post treatment of an anterior tongue cancerFollow-up status post treatment of an anterior tongue cancer Summary Purpose Advance Directives No Advanced Directives Records Found Advance Directive Response Recorded Date/ Time Advance Directives No November 28, 2017 10:50am Advance Directive Response Recorded Date/ Time Advance Directives No November 28, 2017 11:50am Chief Complaint and Reason for Visit Chief Complaint r93.89 Chief Complaint Unknown Additional Source Comments (unrecognized sect ion and content) No Status Records FoundNo Status Records FoundNo Status Records FoundNo Status Records FoundNo Status Records FoundNo Status Records FoundNo Status Records FoundNo Status Records FoundNo Status Records Found INFORMATION SOURCE (unrecogn ized section and content) DATE CREATED AUTHOR 12/21/2021 [facility] DATE CREATED AUTHOR AUTHOR'S ORGANIZ ATCHRIS 12/22/2021 [facility] DATE CREATED AUTHOR AUTHOR'S ORGANIZ ATION 09/21/2022 [facility] DATE CREATED AUTHOR AUTHOR'S ORGANIZ ATION 10/11/2022 [facility] DATE CREATED AUTHOR AUTHOR'S ORGANIZ ATION 12/29/2022 [facility] DATE CREATED AUTHOR AUTHOR'S ORGANIZ ATION 01/22/2023 [facility] DATE CREATED AUTHOR AUTHOR'S ORGANIZ ATION 05/16/2024 [facility] DATE CREATED AUTHOR AUTHOR'S ORGANIZ ATION 05/18/2024 [facility] tals Ambulatory DATE CREATED AUTHOR AUTHOR'S ORGANIZ ATION 05/22/2024 [facility] dical Specialists EPIC REASON FOR VISIT (unrecogniz ed section and content) Reason Comments Weak Reason Comments Follow-up Care Teams (unrecognized sec tion and content) Team Status: Active Member Role Status Dates Neo Singh MD Primary Care Provider Active Team Status: Inactive Member Role Status Dates Neo Singh MD Primary Care Provider Active S tart: May 10, 2024 End: May 10, 2024 Issa Salas DO Attending Provider Active Start: May 10, 2024 End: May 10, 2024 Team Status: Inactive Member Role Status Dates Neo Singh MD Primary Care Provider Active Apollo Lopes MD Attending Provider Active Heel 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 This clinical summary was aggregated from multiple sources. Caution should be exercised in using it in the provision of clinical care. This summary normalizes information from multiple sources, and as a consequence, information in this document may materially change the coding, format and clinical context of patient data. In addition, data may be omitted in some cases. CLINICAL DECISIONS SHOULD BE BASED ON THE PRIMARY CLINICAL RECORDS. [employer] [facility]. provides no warranty or guarantee of the accuracy or completeness of information in this document.
[2024-05-22 19:03] LABS: PCO2 VBG 47.5 mmHg (40.0-52.0); pH VBG 7.425 (7.330-7.430)
[2024-05-22 19:05] LABS: Basophils Percent Auto 0.5 % (0.2-2.0); Eosinophils Absolute Auto 0.2 10^3/uL (0.0-0.7); Hematocrit 32.8 % (42.0-54.0); Hemoglobin 9.9 g/dL (14.0-18.0); Immature Granulocytes Abs Auto 0.01 10^3/uL (0.00-0.03); Immature Granulocytes Pct Auto 0.2 % (0.0-0.5); Lymphocytes Absolute Auto 1.4 10^3/uL (1.2-3.8); Lymphocytes Percent Auto 23.3 % (20.5-60.0); Mean Corpuscular HGB Conc 30.2 g/dL (29.9-35.2); Mean Corpuscular Hemoglobin 28.9 pg (25.9-34.0); Mean Corpuscular Volume 95.9 fL (80.0-94.0); Mean Platelet Volume 9.4 fL (9.5-13.5); Monocytes Absolute Auto 0.5 10^3/uL (0.3-0.8); Monocytes Percent Auto 8.1 % (1.7-12.0); Neutrophils Absolute Auto 3.9 10^3/uL (1.4-6.5); Neutrophils Percent Auto 63.9 % (43.0-75.0); Platelet Count 266 10^3/uL (150-450); Red Blood Count 3.42 10^6/uL (4.70-6.10); Red Cell Distribution Width 15.7 % (11.0-15.0)
[2024-05-22 19:19] LABS: INR 1.03; Prothrombin Time 10.9 sec (9.0-11.6)
[2024-05-22] MEDS: ALBUTEROL SULFATE 2.5 MG/3 ML VIAL NEB IH (19:19)
[2024-05-22 19:22] LABS: Alanine Aminotransferase 35 U/L (16-63); Albumin Globulin Ratio 0.6; Albumin Level 2.9 g/dL (3.4-5.0); Alkaline Phosphatase 283 U/L (46-116); Anion Gap 10.7; Aspartate Amino Transferase 47 U/L (15-37); BUN Creatinine Ratio 15.3; Bilirubin Total 0.4 mg/dL (0.2-1.0); Carbon Dioxide 31.6 mmol/L (21.0-32.0); Chloride 97 mmol/L (98-107); Estimated GFR (African America >60 (>=60); Estimated GFR (Non-African Ame 51 (>=60); Globulin 5.1 g/dL; Glucose 143 mg/dL (74-106); Potassium 4.3 mmol/L (3.5-5.1); Sodium 135 mmol/L (136-145)
[2024-05-22 19:29] LABS: Lactate/Lactic Acid 2.8 mmol/L (0.4-2.0); Troponin I High Sensitivity 6.7 pg/mL (4.0-76.1)
[2024-05-22 19:32] LABS: PROCALCITONIN 0.54 ng/mL (0.00-0.50)
[2024-05-22] MEDS: PIPERACILLIN SODIUM/TAZOBACTAM 3.375 GM in 0.9 % SODIUM CHLORIDE 50 ML IV (21:54)
[2024-05-22] MEDS: VANCOMYCIN HCL 1,250 MG in 0.9 % SODIUM CHLORIDE 500 ML 250 MG IV (22:18)
[2024-05-22 22:24] LABS: Lactate/Lactic Acid 2.3 mmol/L (0.4-2.0)
--- OUTSIDE RECORDS SUMMARY | 2024-05-22 22:36 | XMS_ITS ---
Patient Summarization (C-CDA 2.1 CCD) Created on: May 22, 2024 MaileROXANN FONSECA : 1950 Sex: Male Author Organization Sample organization Care Team Providers Care Fisher Quahog Name Role Phone Apollo Lopes Unavailable Unavailable Neo Singh Unavailable Unavailable Arleen Hudson R Unavailable Irina Carcamo Unavailable Unavailable Maicol Fisher Unavailable Unavailable Apollo Lopes Unavailable Unavailable Neo Singh Unavailable Unavailable Unavailable Luis Moe Unavailable MD Neo Singh Primary Care Provider MD Apollo Lopes Attending Provider [phone] MD ANDREA HAWTHORNE Attending Unavailab le [facility]anthaNeo [facility] Unavailable LAVERTMadison, Dr. APOLLO Bowles Referring Unavailabl e LAVERTU, Dr. APOLLO Bowles Attending [facility]availabl [facility] WIECEK, DR DONYA [...] PROVIDER, UNKNOWN Admitting Unavailable [facility] Irina Wesley MD Unavailable MD Neo Singh Primary Care Provider DO Issa Salas Attending Provider [phone] Neo Singh Primary Care Unavailable Issa Salas [...] [Latex Gloves] Allergy to drug (finding) MG-Otolaryngol ogy-Gray Work Phone: (5 sources) Latex; Translations: [latex] Allergy to substance 07-13-2015 Unknown [facility] Encounters Encounter Date Encounter Type Care Provider Facility Start: 05-21-2024 End: 05-21-2024 ambulatory CLAIRE LYNCH Not Available Start: 05-10-2024 End: 05-10-2024 ambulatory MD Neo Singh Work Phone: [facility] Work Phone: Start: 05-10-2024 End: 05-10-2024 Departed Referred MD Neo Singh Work Phone: [facility] Start: 04-30-2024 End: 04-30-2024 ambulatory NEO Gonzalez SAMANTHA Not Available Start: 01-29-2024 End: 01-29-2024 ambulatory NEO Gonzalez SAMANTHA Not Available Start: 12-18-2023 ambulatory Tiffany Escobar Fa cility:[facility] Start: 10-30-2023 End: 10-30-2023 ambulatory NEO HANSENA Not Available Start: 09-19-2023 End: 09-19-2023 Office outpatient visit 15 minutes Apollo Lopes MD Work Phone: [facility] Comment on above: 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); Acquired hypothyroidism; Oropharyngeal dysphagia Start: 09-19-2023 End: 09-19-2023 ambulatory [facility] Start: 01-16-2023 AUDIT Neo Singh Work Phone: [facility] [place] [address] Work Phone: Start: 12-28-2022 End: 01-22-2023 ambulatory [facility] Triage, Treat and Transport Start: 12-28-2022 End: 12-28-2022 Emergency department [facility] Comment on above: Arrived Start: 12-26-2022 End: 12-27-[address] NEO SINGH Facility:H1 Start: 12-20-2022 Rx Renewal Neo Singh Work Phone: LF-Rueeluxeuweuzk-Knjeu donna Work Phone: Start: 12-13-2022 End: 12-15-2022 Evaluation and management of inpatient DR ABILIO KAY Facility:H1 Start: 09-30-2022 End: 09-30-2022 ambulatory MD Neo Singh Work Phone: [facility] Work Phone: Start: 09-30-2022 End: 09-30-2022 Patient encounter procedure MD Neo Singh Work Phone: [facility]-CT [address] Start: 09-21-2022 Chart Update Neo Singh Work Phone: [facility]Epannjkhxuurfe-Vppxr donna Work Phone: Start: 09-20-2022 ambulatory MD ANDREA Goodman acility:[id number] Start: 09-20-2022 Office outpatient visit 15 minutes Neo Singh Work Phone: LG-Icmbvvcqdifloj-Tykth donna Work Phone: Start: 09-20-[address] APOLLO LOPES Fa cility:[id number] Start: 03-31-2022 End: 03-31-2022 ambulatory Luis Moe Other [facility] [employer] Other Start: 03-31-2022 Office outpatient visit 15 minutes Luis Moe [facility] Vascular Surgery Start: 12-31-2021 End: 12-31-[address] DONYA PAREDES Facility: Start: 12-27-2021 Rx Renewal Rugen M Samantha Work Phone: YX-Eufmtrpogjtgjh-Ggwkt [place] [address] Work Phone: Start: 09-23-2021 Chart Update Rugen M Davenport Work Phone: NB-Yhoelvxqthkuum-Dffgj donna Work Phone: Start: 09-21-2021 Office outpatient visit 15 minutes Rugen M Samantha Work Phone: ED-Uyvrqbvtegvtay-Kevij donna Work Phone: Start: 08-16-2021 Rx Renewal Rugen M Samantha Work Phone: OR-Mmgvzbbargcsom-Yxbhj ban Work Phone: Start: 07-06-2021 Office outpatient visit 15 minutes Rugen M Samantha Work Phone: QJ-Hjgckdxnklwfcx-Hvspv donna Work Phone: Start: 08-04-2020 Patient encounter procedure Apollo Lavaleydau YK-Ognlaaynvjahoy-Iahci ban Work Phone: Start: 07-23-2019 Patient encounter procedure Apollo Lopes AP-Jxkwjpjvblojir-Eoima donna Work Phone: Start: 01-22-2019 Patient encounter procedure Apollo Lopes PG-Kjhrnzkqrhvfok-Quahw donna Work Phone: Start: 08-21-2018 Patient encounter procedure Apollo GOLDFB-Mdoduzzlgwwbqz-Qhlcn donna Work Phone: Start: 08-07-2018 Patient encounter procedure Apollo GOLDQX-Swvzldbvwacofd-Gjjjl donna Work Phone: Start: 07-10-2018 Patient encounter procedure Apollo GOLDPS-Epekloolsmgkhc-Oeygt donna Work Phone: Start: 01-09-2018 Patient encounter procedure Apollo GOLDQT-Iqtjbdxxqynqdt-Sxcds donna Work Phone: Immunizations Immunization Date Immunization Notes Care Provider Fa camryn 05-04-2020 pneumococcal conjuga te vaccine, 13 valent Apollo Lopes MD Work Phone: [facility] Work Phone: 12-16-2017 Seasonal trivalent influenza vaccine, adjuvanted, preservative free Apollo Lopes MD Work Phone: [facility] Work Phone: 12-16-2017 influenza virus vaccine, unspecified formulation Apollo Lopes MD Work Phone: [facility] Work Phone: Medications Current Medications Medication Drug Class(es) Dates Sig (Normalized) Sig (Original) [id number] 200 actuat albuterol 0.09 mg/actuat metered dose [...] Ellipta AEPB Refills: 0 Active 0 Active Hqwlo-Zp-6-Dha-Epa -Phospho-Ast (2 sources) Start: 11-30-2017 take 3 capsules by mouth once daily Mnzpc-Fc-3-Dha-E eo-Ovadqxw-Clj Active 1 CAP PO Daily November 30, 2017 1:00am Start: 11-30-2017 take 3 capsules by mouth once daily Rrhca-Zm-0-Ndr-Hre-Zewxnhl-Ast Active 1 CAP PO Daily November 30, [...] Fluticasone Fu roate (Flonase Sensimist) 27.5 mcg/actuation [place],Suspension Active 1 SPRAY INTRANASAL Daily May 21, [...] Active Payers Date Payer Category Payer Unknown [id number] 2019 Medicare HUMANA MEDICARE HU[employer]NA GOLD CHOICE [id number] 2019-Present [address] [address] [place] [address] [id number] 2017 Self-pay [id number] 1959 Medicare [id number] 1950 Unknown [id number] 2.16.840.1.345022.3.579.2 .356 1950 Unknown [id number] 2.16.840.1.234265.3.579.2 .356 1950 Unknown [id number] 2.16.840.1.370019.3.579.2 .593 1950 Unknown [id number] 2.16.840.1.590204.3.579.2 .593 1950 Unknown [id number] 2.16.840.1.268052.3.579.2 .593 1950 Unknown [id number] 2.16.840.1.939118.3.579.2 .732 1950 Unknown [id number] 2.16.840.1.677516.3.579.2 .1244 1950 Unknown [id number] 2.16.840.1.036483.3.579.2 .1259 1950 Unknown [id number] 2.16.840.1.041303.3.579.2 .1259 1950 Unknown [id number] 2.16.840.1.302541.3.579.2 .1259 1950 Unknown [id number] 2.16.840.1.392899.3.579.2 .1259 1950 Unknown [id number] 2.16.840.1.768185.3.579.2 .1259 Medicare Medicare [id number] Medicare Medicare [id number] Private Health Insurance [facility] [id number] Unknown Unknown [id number] [id number] .531 Unknown [id number] 2.16.840.1.720393.3.579.2 .531 Plan of Treatment Date Care Activity Detail Author Start: 09-17-2024 End: 09-17-2024 Patient encounter procedure 09/17/2024 4:30 PM EDT Office Visit [facility] [address] [place] [phone] [place] [address] [place] [address] [facility] Start: 06-20-2024 Thyroid stimulating hormone measurement TSH Level [facility] Start: 09-19-2023 FUV, Provider: Apollo Lopes, Status: Pen, Time: 4:15 PM FUV, Provider: Apollo Lopes, Status: Pen, Time: 4:15 PM AW-Zplplmhunyqsvs-Bgkx [place] Work Phone: Start: 07-28-2023 Influenza vaccination Influenza Vaccine (#1) [facility] Start: 09-20-2022 FUV, Provider: Apollo Lopes, Status: Pen, Time: 2:40 PM FUV, Provider: Apollo Lopes, Status: Pen, Time: 2:40 PM PI-Arbdgytylblbda-Fqgm [place] Work Phone: Start: 08-27-2022 Influenza vaccination Influenza Vaccine (#[facility]) [facility] Start: 12-23-2021 COVID-19 Vaccine (4 - Pfizer series) COVID-19 Vaccine (4 - Pfizer series) [facility] Start: 09-21-2021 FUV, Provider: Apollo Lopes, Status: Pen, Time: 1:40 PM FUV, Provider: Apollo Lopes, Status: Pen, Time: 1:40 PM TC-Nnmmbkpbtjbfaw-Xyji [place] Work Phone: Start: 05-04-2021 Pneumococcal Vaccine: 65+ Years (2 - PPSV23 or PCV20) Pneumococcal Vaccine: 65+ Years (2 - PPSV23 or PCV20) [facility] Start: 02-10-2017 Pneumococcal vaccination Pneumococcal Vaccine(s) (65+ yrs) (1 - PCV) [facility] Start: 02-10-2002 Measurement of occult blood in single stool specimen FIT [facility] Start: 02-10-2002 Screening for malignant neoplasm of colon CRC Screening [facility] Start: 02-10-2002 Shingles (RZV) Vaccine (1 of 2) Shingles (RZV) Vaccine (1 of 2) [facility] Start: 02-10-2002 Zoster Vaccines (1 of 2) Zoster Vaccines (1 of 2) [facility] Start: 02-10-1987 Lipid panel Cholesterol [facility] Start: 02-10-1974 DTaP/Tdap/Td Vaccines (1 - Tdap) DTaP/Tdap/Td Vaccines (1 - Tdap) [facility] Start: 02-10-1970 Diabetes mellitus screening Diabetes Screening [facility] Start: 02-10-1970 Hepatitis C screening [facility] Start: 02-10-1970 Tetanus + diphtheria + acellular pertussis vaccine (product) Tdap Booster [facility] Start: 1950 COVID-19 Vaccine (#1) COVID-19 Vaccine (#1) [facility] Start: 1950 Lipid panel Lipid Panel [facility] Start: 1950 Medicare Annual Wellness Visit Medicare Annual Wellness Visit (AWV) [facility] Start: 1950 Screening for malignant neoplasm of [...] disease (1 source) Atherosclerotic heart disease of [place] coronary artery without angina pectoris; Translations: [ASHD CAHUILLA CA W/O ANGINA PECTORIS] Onset: 3 Chronic [...] 2 Chronic Other aftercare (1 source) Other mcfp (current) drug therapy; Translations: [OTH EXCHANGE TROUBLE SHOOTER CURRENT DRUG THERAPY] Onset: 3 Episodic Other aftercare (1 source) skilled nursing (current) use of aspirin; Translations: [RETIREMENT CURRENT USE OF ASPIRIN] Onset: 3 Episodic [...] Test Name Value Interpretation Reference Range Facility [facility] 05-10-2024 L Specimen: [id number] Received: 05/10/24 Status: MOSHE Escobar Num: [id number] Spec Type: Surgical Subm Dr: Issa Salas DO Tissues: A Stomach - Biopsy/Polyp (ANTRUM) B Esophagus Biopsy (DISTAL ESOPH) C Esophagus Biopsy (MID ESOPH) D Colon Biopsy (HEPATIC FLEXURE) Procedures: PAS - LGRN, HE/8, Gross/Micro L4/4, H PYLORI Age/ Patient Sex Location Account Attending Physician Roxann Rm 74/M LABELL [id number] Issa Salas DO SPEC NUM: [id number] RECD: 05/10/24 STATUS: MARIBELLLuan ESCOBAR NUM: [id number] NINA: 05/10/[address]: Issa Salas DO ENTERED: 05/10/24 [facility] DR: Blake Crouch SPEC TYPE: Surgical DEPT: [...] invasion in at least 1 fragment Specimen: [id number] Received: 05/10/24 Status: MOSHE Escobar Num: [id number] Spec Type: Surgical Subm Dr: Issa Salas DO Tissues: A Stomach - Biopsy/Polyp (ANTRUM) B Esophagus Biopsy (DISTAL ESOPH) C Esophagus Biopsy (MID ESOPH) D Colon Biopsy (HEPATIC FLEXURE) Procedures: PAS - SHOAIBN, HE/8, Gross/Micro L4/4, H PYLORI Patient: Roxann Rm [id number] (Continued) Specimen: [id number] Received: 05/10/24 (Continued) Signed (signature on file) Hilda Thakkar MD 05/14/24 1657 Specimen: [id number] Received: 05/10/24 Status: MOSHE Escobar Num: [id number] Spec Type: Surgical Subm Dr: Issa Salas, Tissues: A Stomach - Biopsy/Polyp (ANTRUM) B Esophagus Biopsy (DISTAL ESOPH) C Esophagus Biopsy (MID ESOPH) D Colon Biopsy (HEPATIC FLEXURE) Procedures: KAELA ARRIAGA, ROSA/Arnulfo, Gross/Micro L4/4, H PYLORI Patient: Roxann Rm [id number] (Continued) Specimen: [id number] Received: 05/10/24 (Continued) Clinical Information Anemia, melena, [...] cm, entirely submitted in D1. CPT Codes [id number] Specimen: [id number] Received: 05/10/24 Status: MOSHE Escobar Num: [id number] Spec Type: Surgical Subm Dr: Issa Salas DO Tissues: A Stomach - Biopsy/Polyp (ANTRUM) B Esophagus Biopsy (DISTAL ESOPH) C Esophagus Biopsy (MID ESOPH) D Colon Biopsy (HEPATIC FLEXURE) Procedures: PAS - LGRN, HE/8, Gross/Micro L4/4, H PYLORI Patient: Roxann [id number] (Continued) Signed (signature on file) Alicia (more content not included)... Normal [facility] Complete Blood Count Auto Di ffon 12-18-2023 Basophils (Bld) [#/Vol] 0.0 10*3/uL Normal 0.0-0.2 [facility] Comment on above: Result Comment: PERF ORMED BY: [place] [address] PATHOLOGIST CARD CLEANER PABLO ZHAO M.D. Performed By: #### C JESE TSH3, CMP #### [address] Basophils/100 WBC (Bld) 0.4 % Normal . [facility] Comment on above: Performed By: #### C JESE TSH3, CMP #### [address] Eosinophils (Bld) [#/Vol] 0.5 10*3/uL High 0.0-0.45 [facility] Comment on above: Performed By: #### C JESE TSH3, CMP #### [address] Eosinophils/100 WBC (Bld) 9.0 % Normal . [facility] Comment on above: Performed By: #### C JESE TSH3, CMP #### [address] Erythrocyte distribution width (RBC) [Ratio] 15.8 % High 12.0-14.8 [facility] Comment on above: Performed By: #### C LYNN SAWANT3, CMP #### [address] Hematocrit (Bld) [Volume fraction] 35.1 % Low 38.8-50.0 [facility] Comment on above: Performed By: #### C BC, TSH3, CMP #### [address] Hemoglobin (Bld) [Mass/Vol] 11.6 g/dL Low 13.0-17.0 [facility] Comment on above: Performed By: #### C BC, TSH3, CMP #### [address] Lymphocytes (Bld) [#/Vol] 1.3 10*3/uL Normal 1.00-4.8 [facility] Comment on above: Performed By: #### C BC, TSH3, CMP #### [address] Lymphocytes/100 WBC (Bld) 21.7 % Normal . [facility] Comment on above: Performed By: #### C BC, TSH3, CMP #### [address] MCH (RBC) [Entitic mass] 32.2 pg Normal 27.5-35.2 [facility] Comment on above: Performed By: #### C BC, TSH3, CMP #### [address] MCV (RBC) [Entitic vol] 97.0 fL Normal 83.5-101 [facility] Comment on above: Performed By: #### C BC, TSH3, CMP #### [address] Mean Corpuscular HGB Conc 33.2 g/dL Normal 32.5-35.6 [facility] Comment on above: Performed By: #### C BC, TSH3, CMP #### [address] Monocytes (Bld) [#/Vol] 0.5 10*3/uL Normal 0.0-0.8 [facility] Comment on above: Performed By: #### C BC, TSH3, CMP #### [facility] [address] Monocytes/100 WBC (Bld) 8.2 % Normal . [facility] Comment on above: Performed By: #### C BC, TSH3, CMP #### [address] Neutrophils (Bld) [#/Vol] 3.5 10*3/uL Normal 1.8-7.7 [facility] Comment on above: Performed By: #### C BC, TSH3, CMP #### [address] Neutrophils/100 WBC (Bld) 60.7 % Normal . [facility] Comment on above: Performed By: #### C BC, TSH3, CMP #### [address] NRBC% 0.0 /100{WBC} Normal 0-0.5 [facility] Comment on above: Performed By: #### C BC, TSH3, CMP #### [address] Platelet mean volume (Bld) [Entitic vol] 7.0 fL Normal 6.6-10.1 [facility] Comment on above: Performed By: #### C BC, TSH3, CMP #### [facility] [address] [place] [address] [place] Platelets (Bld) [#/Vol] 196 10*3/uL Normal 150-450 [facility] Comment on above: Performed By: #### C BC, TSH3, CMP #### [place] [address] [place] RBC (Bld) [#/Vol] 3.61 10*6/uL Low 3.90-5.60 [facility] Comment on above: Performed By: #### C BC, TSH3, CMP #### [place] [address] [place] WBC (Bld) [#/Vol] 5.8 10*3/uL Normal 4.1-10.5 [facility] Comment on above: Performed By: #### C JESE TSH3, CMP #### [address] Diff and CBCon 09-21-2023 Acanthocytes Slight Normal [facility] Comment on above: Performed By: #### C JESE TSH3, CMP #### [address] Anisocytosis Ql (Bld) Slight Normal [facility] Comment on above: Performed By: #### C JESE TSH3, CMP #### [address] Eosinophils/100 WBC (Bld) 6 % High 1-3 [facility] Comment on above: Performed By: #### C JESE TSH3, CMP #### [address] Erythrocyte distribution width (RBC) [Ratio] 19.3 % High 12.0-14.8 [facility] Comment on above: Performed By: #### C JESE TSH3, CMP #### [address] Hematocrit (Bld) [Volume fraction] 34.2 % Low 38.8-50.0 [facility] Comment on above: Performed By: #### C JESE TSH3, CMP #### [address] Hemoglobin (Bld) [Mass/Vol] 11.1 g/dL Low 13.0-17.0 [facility] Comment on above: Performed By: #### C JESE TSH3, CMP #### [address] Lymphocytes/100 WBC (Bld) 31 % Normal 18-42 [facility] Comment on above: Performed By: #### C JESE TSH3, CMP #### [address] MCH (RBC) [Entitic mass] 30.5 pg Normal 27.5-35.2 [facility] Comment on above: Performed By: #### C BC, TSH3, CMP #### [address] MCV (RBC) [Entitic vol] 93.9 fL Normal 83.5-101 [facility] Comment on above: Performed By: #### C BC, TSH3, CMP #### [address] Mean Corpuscular HGB Conc 32.5 g/dL Normal 32.5-35.6 [facility] Comment on above: Performed By: #### C BC, TSH3, CMP #### [address] Microcytosis Slight Normal [facility] Comment on above: Performed By: #### C BC, TSH3, CMP #### [address] Monocytes/100 WBC (Bld) 6 % Normal 2-11 [facility] Comment on above: Performed By: #### C BC, TSH3, CMP #### [address] Ovalocytes Slight Normal [facility] Comment on above: Performed By: #### C BC, TSH3, CMP #### [address] Platelet Estimate Decreased Normal Normal [facility] Comment on above: Performed By: #### C BC, TSH3, CMP #### [address] Platelet mean volume (Bld) [Entitic vol] 6.9 fL Normal 6.6-10.1 [facility] Comment on above: Performed By: #### C BC, TSH3, CMP #### [address] Platelet Morphology Normal Normal Normal [facility] Comment on above: Result Comment: PERF ORMED BY: [place] [address] PATHOLOGIST CARD CLEANER PABLO ZHAO M.D. Performed By: #### C BC, TSH3, CMP #### [address] Platelets (Bld) [#/Vol] 134 10*3/uL Low 150-450 [facility] Comment on above: Performed By: #### C BC, TSH3, CMP #### [address] Poikilocytosis Slight Normal [facility] Comment on above: Performed By: #### C BC, TSH3, CMP #### [address] Polychromasia Slight Normal [facility] Comment on above: Performed By: #### C BC, TSH3, CMP #### [address] RBC (Bld) [#/Vol] 3.65 10*6/uL Low 3.90-5.60 [facility] Comment on above: Performed By: #### C BC, TSH3, CMP #### [address] Schistocytes Slight Normal [facility] Comment on above: Performed By: #### C BC, TSH3, CMP #### [address] Segmented neutrophils/100 WBC (Bld) 58 % Normal 50-70 [facility] Comment on above: Performed By: #### C BC, TSH3, CMP #### [address] WBC (Bld) [#/Vol] 3.5 10*3/uL Low 4.1-10.5 [facility] Comment on above: Performed By: #### C BC, TSH3, CMP #### [address] Complete Blood Count Auto Di ffon 06-21-2023 Basophils (Bld) [#/Vol] 0.0 10*3/uL Normal 0.0-0.2 [facility] Comment on above: Performed By: #### R ETIC, CMP, [id number], FE and TIBC, LDH, HAPT, CBC #### [address] #### CU #### [facility] , Basophils/100 WBC (Bld) 1.0 % Normal . [facility] Comment on above: Performed By: #### R ETIC, CMP, [id number], FE and TIBC, LDH, HAPT, CBC #### [place] [address] [place] #### CU #### [facility] , Eosinophils (Bld) [#/Vol] 0.3 10*3/uL Normal 0.0-0.45 [facility] Comment on above: Performed By: #### R ETIC, CMP, [id number], FE and TIBC, LDH, HAPT, CBC #### [address] #### CU #### [facility] , Eosinophils/100 WBC (Bld) 7.9 % Normal . [facility] Comment on above: Performed By: #### R ETIC, CMP, [id number], FE and TIBC, LDH, HAPT, CBC #### [place] [address] [place] #### CU #### [facility] , Erythrocyte distribution width (RBC) [Ratio] 19.1 % High 12.0-14.8 [facility] Comment on above: Performed By: #### R ETIC, CMP, [id number], FE and TIBC, LDH, HAPT, CBC #### [place] [address] [place] #### CU #### [facility] , Hematocrit (Bld) [Volume fraction] 31.5 % Low 38.8-50.0 [facility] Comment on above: Performed By: #### R ETIC, CMP, [id number], FE and TIBC, LDH, HAPT, CBC #### [place] [address] [place] #### CU #### [facility] , Hemoglobin (Bld) [Mass/Vol] 9.7 g/dL Low 13.0-17.0 [facility] Comment on above: Performed By: #### R ETIC, CMP, [id number], FE and TIBC, LDH, HAPT, CBC #### [address] #### CU #### [facility] , Lymphocytes (Bld) [#/Vol] 1.0 10*3/uL Normal 1.00-4.8 [facility] Comment on above: Performed By: #### R ETIC, CMP, [id number], FE and TIBC, LDH, HAPT, CBC #### [address] #### CU #### [facility] , Lymphocytes/100 WBC (Bld) 26.4 % Normal . [facility] Comment on above: Performed By: #### R ETIC, CMP, [id number], FE and TIBC, LDH, HAPT, CBC #### [place] [address] [place] #### CU #### [facility] , MCH (RBC) [Entitic mass] 23.9 pg Low 27.5-35.2 [facility] Comment on above: Performed By: #### R ETIC, CMP, [id number], FE and TIBC, LDH, HAPT, CBC #### [place] [address] [place] #### CU #### [facility] , MCV (RBC) [Entitic vol] 78.1 fL Low 83.5-101 [facility] Comment on above: Performed By: #### R ETIC, CMP, [id number], FE and TIBC, LDH, HAPT, CBC #### [place] [address] [place] #### CU #### [facility] , Mean Corpuscular HGB Conc 30.6 g/dL Low 32.5-35.6 [facility] Comment on above: Performed By: #### R ETIC, CMP, [id number], FE and TIBC, LDH, HAPT, CBC #### [place] [address] [place] #### CU #### [facility] , Monocytes (Bld) [#/Vol] 0.5 10*3/uL Normal 0.0-0.8 [facility] Comment on above: Performed By: #### R ETIC, CMP, [id number], FE and TIBC, LDH, HAPT, CBC #### [place] [address] [place] #### CU #### [facility] , Monocytes/100 WBC (Bld) 12.1 % Normal . [facility] Comment on above: Performed By: #### R ETIC, CMP, [id number], FE and TIBC, LDH, HAPT, CBC #### [place] [address] [place] #### CU #### [facility] , Neutrophils (Bld) [#/Vol] 2.0 10*3/uL Normal 1.8-7.7 [facility] Comment on above: Performed By: #### R ETIC, CMP, [id number], FE and TIBC, LDH, HAPT, CBC #### [place] [address] [place] #### CU #### [facility] , Neutrophils/100 WBC (Bld) 52.6 % Normal . [facility] Comment on above: Performed By: #### R ETIC, CMP, [id number], FE and TIBC, LDH, HAPT, CBC #### [address] #### CU #### [facility] , NRBC% 0.4 /100{WBC} Normal 0-0.5 [facility] Comment on above: Performed By: #### R ETIC, CMP, [id number], FE and TIBC, LDH, HAPT, CBC #### [address] #### CU #### [facility] , Platelet mean volume (Bld) [Entitic vol] 7.1 fL Normal 6.6-10.1 [facility] Comment on above: Performed By: #### R ETIC, CMP, [id number], FE and TIBC, LDH, HAPT, CBC #### [address] #### CU #### [facility] , Platelets (Bld) [#/Vol] 191 10*3/uL Normal 150-450 [facility] Comment on above: Performed By: #### R ETIC, CMP, [id number], FE and TIBC, LDH, HAPT, CBC #### [address] #### CU #### [facility] , RBC (Bld) [#/Vol] 4.04 10*6/uL Normal 3.90-5.60 [facility] Comment on above: Performed By: #### R ETIC, CMP, [id number], FE and TIBC, LDH, HAPT, CBC #### [place] [address] [place] #### CU #### [facility] , WBC (Bld) [#/Vol] 3.8 10*3/uL Low 4.1-10.5 [facility] Comment on above: Performed By: #### R ETIC, CMP, [id number], FE and TIBC, LDH, HAPT, CBC #### [place] [address] [place] #### CU #### [facility] , Comprehensive Metabolic Pane oleg 06-21-2023 Albumin [Mass/Vol] 4.1 g/dL Normal 3.5-5.7 [facility] Comment on above: Performed By: #### R ETIC, CMP, [id number], FE and TIBC, LDH, HAPT, CBC #### [place] [address] [place] #### CU #### [facility] , Albumin/Globulin [Mass ratio] 1.3 {ratio} Normal [facility] Comment on above: Performed By: #### R ETIC, CMP, [id number], FE and TIBC, LDH, HAPT, CBC #### [place] [address] [place] #### CU #### [facility] , ALP [Catalytic activity/Vol] 69 U/L Normal 34-104 [facility] Comment on above: Performed By: #### R ETIC, CMP, [id number], FE and TIBC, LDH, HAPT, CBC #### [place] [address] [place] #### CU #### [facility] , ALT [Catalytic activity/Vol] 9 U/L Normal 7-52 [facility] Comment on above: Performed By: #### R ETIC, CMP, [id number], FE and TIBC, LDH, HAPT, CBC #### [facility] [address] [place] [address] [place] #### CU #### [facility] , Anion gap [Moles/Vol] 12.2 mmol/L Normal 6.0-15.0 [facility] Comment on above: Performed By: #### R ETIC, CMP, [id number], FE and TIBC, LDH, HAPT, CBC #### [place] [address] [place] #### CU #### [facility] , AST [Catalytic activity/Vol] 14 U/L Normal 13-39 [facility] Comment on above: Performed By: #### R ETIC, CMP, [id number], FE and TIBC, LDH, HAPT, CBC #### [place] [address] [place] #### CU #### [facility] , Bilirubin [Mass/Vol] 0.5 mg/dL Normal 0.3-1.0 [facility] Comment on above: Performed By: #### R ETIC, CMP, [id number], FE and TIBC, LDH, HAPT, CBC #### [place] [address] [place] #### CU #### [facility] , Calcium [Mass/Vol] 9.5 mg/dL Normal 8.6-10.3 [facility] Comment on above: Performed By: #### R ETIC, CMP, [id number], FE and TIBC, LDH, HAPT, CBC #### [address] #### CU #### [facility] , Chloride [Moles/Vol] 100 mmol/L Normal 98-107 [facility] Comment on above: Performed By: #### R ETIC, CMP, [id number], FE and TIBC, LDH, HAPT, CBC #### [place] [address] [place] #### CU #### [facility] , CO2 [Moles/Vol] 32.6 mmol/L High 21.0-31.0 [facility] Comment on above: Performed By: #### R ETIC, CMP, [id number], FE and TIBC, LDH, HAPT, CBC #### [place] [address] [place] #### CU #### [facility] , Creatinine [Mass/Vol] 1.03 mg/dL Normal 0.70-1.30 [facility] Comment on above: Performed By: #### R ETIC, CMP, [id number], FE and TIBC, LDH, HAPT, CBC #### [place] [address] [place] #### CU #### [facility] , Creatinine Clr Calc Pharmacy 59.93 Normal [facility] Comment on above: Performed By: #### R ETIC, CMP, [id number], FE and TIBC, LDH, HAPT, CBC #### [place] [address] [place] #### CU #### [facility] , GFR/1.73 sq M.predicted MDRD (S/P/Bld) [Vol rate/Area] mL/min/{1.73_m2} Normal [facility] Comment on above: Performed By: #### R ETIC, CMP, [id number], FE and TIBC, LDH, HAPT, CBC #### [place] [address] [place] #### CU #### [facility] , Globulin (S) [Mass/Vol] 3.1 g/dL Normal [facility] Comment on above: Performed By: #### R ETIC, CMP, [id number], FE and TIBC, LDH, HAPT, CBC #### [place] [address] [place] #### CU #### [facility] , Glucose [Mass/Vol] 127 mg/dL High 70-100 [facility] Comment on above: Result Comment: [place] Glucose Reference Range is dependent on time and content of last meal. Glucose of more than 200 mg/dL in a nonstressed, ambulatory subject supports the diagnosis of Diabetes Mellitus. ADA recommended reference range Performed By: #### R ETIC, CMP, [id number], FE and TIBC, LDH, HAPT, CBC #### [place] [address] [place] #### CU #### [facility] , Potassium [Moles/Vol] 3.8 mmol/L Normal 3.5-5.1 [facility] Comment on above: Performed By: #### R ETIC, CMP, [id number], FE and TIBC, LDH, HAPT, CBC #### [address] #### CU #### [facility] , Protein [Mass/Vol] 7.2 g/dL Normal 6.4-8.9 [facility] Comment on above: Performed By: #### R ETIC, CMP, [id number], FE and TIBC, LDH, HAPT, CBC #### [address] #### CU #### [facility] , Sodium [Moles/Vol] 141 mmol/L Normal 136-145 [facility] Comment on above: Performed By: #### R ETIC, CMP, [id number], FE and TIBC, LDH, HAPT, CBC #### [place] [address] [place] #### CU #### [facility] , Urea nitrogen [Mass/Vol] 16 mg/dL Normal 7-25 [facility] Comment on above: Performed By: #### R ETIC, CMP, [id number], FE and TIBC, LDH, HAPT, CBC #### [place] [address] [place] #### CU #### [facility] , Copperon 06-21-2023 Copper 128 ug/dL Normal 69-132 [facility] Comment on above: Result Comment: This test was developed and its performance characteristics determined by [facility]. It has not been cleared or approved by the Food and Drug Administration. Detection Limit = 5 Performed at: [facility] [id number] Emergency Medical Services Coordinator: Haja Schmitt MD, Phone: [phone] PERFORMED BY: [place] [address] PATHOLOGIST CARD CLEANER PABLO ZHAO M.D. Performed By: #### C BC, TSH3, CMP #### [address] Ferritinon 06-21-2023 Ferritin [Mass/Vol] 59.0 ng/mL Normal 23.9-336.[address] [facility] Comment on above: Order Comment: Comme nt on blood already drawn Result Comment: PERF ORMED BY: [place] [address] PATHOLOGIST CARD CLEANER PABLO ZHAO M.D. Performed By: #### C BC, TSH3, CMP #### [address] Haptoglobinon 06-21-2023 Haptoglobin 332 mg/dL High 44-215 [facility] Comment on above: Result Comment: PERF ORMED BY: [place] [address] PATHOLOGIST CARD CLEANER PABLO ZHAO M.D. Performed By: #### R ETIC, CMP, [id number], FE and TIBC, LDH, HAPT, CBC #### [address] #### CU #### [facility] , Iron and TIBC Profileon 05-28 % Iron Saturation 8.0 % Low 20-50 [facility] Comment on above: Performed By: #### C BC, TSH3, CMP #### [address] Iron [Mass/Vol] 38 ug/dL Low 50-212 The [facility] Comment on above: Performed By: #### C BC, TSH3, CMP #### [address] Total Iron Binding Capacity 475 ug/dL High 255-450 [facility] Comment on above: Performed By: #### C BC, TSH3, CMP #### [address] Transferrin [Mass/Vol] 339 mg/dL Normal 203-362 [facility] Comment on above: Performed By: #### C BC, TSH3, CMP #### [address] LDH Lactate Dehydrogenaseon 06-21-2023 LDH Lactate Dehydrogenase 139 U/L Low 140-271 [facility] Comment on above: Performed By: #### R ETIC, CMP, [id number], FE and TIBC, LDH, HAPT, CBC #### [address] #### CU #### [facility] , Reticulocyte Counton 023 Reticulocyte Number 0.065 10*6/uL Normal 0.024-0.084 [facility] Comment on above: Result Comment: PERF ORMED BY: [place] [address] PATHOLOGIST CARD CLEANER PABLO ZHAO M.D. Performed By: #### R ETIC, CMP, [id number], FE and TIBC, LDH, HAPT, CBC #### [address] #### CU #### [facility] , Reticulocyte Percent 1.6 % High 0.5-1.5 [facility] Comment on above: Performed By: #### R ETIC, CMP, [id number], FE and TIBC, LDH, HAPT, CBC #### [address] #### CU #### [facility] , Stool Occult Blood (Guaiac)o n 06-21-2023 Stool Occult Blood (Guaiac) Occult Blood Negative for Occult Blood by Guaiac Methodology -------- Reference range = Negative PERFORMED BY: [place] [address] PATHOLOGIST CARD CLEANER PABLO ZHAO M.D. Normal [facility] Comment on above: Performed By: #### O B(GUAIAC) #### [address] Urinalysison 06-21-2023 Appearance (U) Clear Normal Clear [facility] Comment on above: Order Comment: Name Collection Type:: Voided Performed By: #### C BC, TSH3, CMP #### [address] Bilirubin,Urine Negative Normal Negative The [facility] Comment on above: Order Comment: Name Collection Type:: Voided Performed By: #### C BC, TSH3, CMP #### [address] Color (U) Yellow Normal Yellow [facility] Comment on above: Order Comment: Name Collection Type:: Voided Performed By: #### C BC, TSH3, CMP #### [address] Glucose Ql (U) >=1000 High Normal [facility] Comment on above: Order Comment: Name Collection Type:: Voided Performed By: #### C BC, TSH3, CMP #### [address] Ketones Ql (U) Negative Normal Negative [facility] Comment on above: Order Comment: Name Collection Type:: Voided Performed By: #### C BC, TSH3, CMP #### [place] [address] [place] Leukocyte esterase Test strip Ql (U) Negative Normal Negative [facility] Comment on above: Order Comment: Name Collection Type:: Voided Performed By: #### C BC, TSH3, CMP #### [address] Nitrite,Urine Negative Normal Negative [facility] Comment on above: Order Comment: Name Collection Type:: Voided Performed By: #### C BC, TSH3, CMP #### [address] Occult Blood,Urine Negative Normal Negative [facility] Comment on above: Order Comment: Name Collection Type:: Voided Result Comment: PERF ORMED BY: [place] [address] PATHOLOGIST CARD CLEANER PABLO ZHAO M.D. Performed By: #### C BC, TSH3, CMP #### [address] pH (U) 7.5 [pH] Normal 5.0-9.0 [facility] Comment on above: Order Comment: Name Collection Type:: Voided Performed By: #### C BC, TSH3, CMP #### [address] Protein,Urine Negative Normal Negative [facility] Comment on above: Order Comment: Name Collection Type:: Voided Performed By: #### C BC, TSH3, CMP #### [place] [address] [place] Specificy [place],Urine 1.028 Normal 1.001-1.030 [facility] Comment on above: Order Comment: Name Collection Type:: Voided Performed By: #### C BC, TSH3, CMP #### [address] Urobilinogen,Urine Normal Normal Normal [facility] Comment on above: Order Comment: Name Collection Type:: Voided Performed By: #### C BC, TSH3, CMP #### [place] [id number] [place] Vit. B12/Folate Profileon Cobalamin (Vitamin B12) [Mass/Vol] 1380 pg/mL High 180-914 [facility] Comment on above: Performed By: #### C JESE, TSH3, CMP #### [address] Folate 22.0 ng/mL Normal >5.9 [facility] Comment on above: Result Comment: Helene te reference range: >5.9 ng/ml The WHO technical consultation on folate and vitamin b12 deficiencies has determined that folate concentrations less than 4 ng/ml are considered deficient. PERFORMED BY: [place] [address] PATHOLOGIST CARD CLEANER PABLO ZHAO M.D. Performed By: #### C JESE, TSH3, CMP #### [address] Complete Blood Count Auto Di ffon 06-20-2023 Basophils (Bld) [#/Vol] 0.0 10*3/uL Normal 0.0-0.2 [facility] Comment on above: Result Comment: PERF ORMED BY: [place] [address] PATHOLOGIST CARD CLEANER PABLO ZHAO M.D. Performed By: #### C JESE, TSH3, CMP #### [address] Basophils/100 WBC (Bld) 0.9 % Normal . [facility] Comment on above: Performed By: #### C BC, TSH3, CMP #### [address] Eosinophils (Bld) [#/Vol] 0.4 10*3/uL Normal 0.0-0.45 [facility] Comment on above: Performed By: #### C BC, TSH3, CMP #### [address] Eosinophils/100 WBC (Bld) 9.4 % Normal . [facility] Comment on above: Performed By: #### C BC, TSH3, CMP #### [address] Erythrocyte distribution width (RBC) [Ratio] 19.1 % High 12.0-14.8 [facility] Comment on above: Performed By: #### C BC, TSH3, CMP #### [address] Hematocrit (Bld) [Volume fraction] 30.6 % Low 38.8-50.0 [facility] Comment on above: Performed By: #### C BC, TSH3, CMP #### [address] Hemoglobin (Bld) [Mass/Vol] 9.4 g/dL Low 13.0-17.0 [facility] Comment on above: Performed By: #### C BC, TSH3, CMP #### [address] Lymphocytes (Bld) [#/Vol] 1.2 10*3/uL Normal 1.00-4.8 [facility] Comment on above: Performed By: #### C BC, TSH3, CMP #### [address] Lymphocytes/100 WBC (Bld) 32.7 % Normal . [facility] Comment on above: Performed By: #### C BC, TSH3, CMP #### [address] MCH (RBC) [Entitic mass] 24.0 pg Low 27.5-35.2 [facility] Comment on above: Performed By: #### C BC, TSH3, CMP #### [address] MCV (RBC) [Entitic vol] 77.8 fL Low 83.5-101 [facility] Comment on above: Performed By: #### C BC, TSH3, CMP #### [address] Mean Corpuscular HGB Conc 30.9 g/dL Low 32.5-35.6 [facility] Comment on above: Performed By: #### C JESE TSH3, CMP #### [address] Monocytes (Bld) [#/Vol] 0.5 10*3/uL Normal 0.0-0.8 [facility] Comment on above: Performed By: #### C JESE TSH3, CMP #### [address] Monocytes/100 WBC (Bld) 12.9 % Normal . [facility] Comment on above: Performed By: #### C JESE TSH3, CMP #### [address] Neutrophils (Bld) [#/Vol] 1.7 10*3/uL Low 1.8-7.7 [facility] Comment on above: Performed By: #### Donna SAWANT TSH3, CMP #### [address] Neutrophils/100 WBC (Bld) 44.1 % Normal . [facility] Comment on above: Performed By: #### C JESE TSH3, CMP #### [address] NRBC% 0.4 /100{WBC} Normal 0-0.5 [facility] Comment on above: Performed By: #### C JESE TSH3, CMP #### [address] Platelet mean volume (Bld) [Entitic vol] 7.1 fL Normal 6.6-10.1 [facility] Comment on above: Performed By: #### C JESE TSH3, CMP #### [address] Platelets (Bld) [#/Vol] 190 10*3/uL Normal 150-450 [facility] Comment on above: Performed By: #### C JESE TSH3, CMP #### [address] RBC (Bld) [#/Vol] 3.93 10*6/uL Normal 3.90-5.60 [facility] Comment on above: Performed By: #### C BC, TSH3, CMP #### [address] WBC (Bld) [#/Vol] 3.7 10*3/uL Low 4.1-10.5 [facility] Comment on above: Performed By: #### C BC, TSH3, CMP #### [address] Comprehensive Metabolic Pane oleg 06-20-2023 Albumin [Mass/Vol] 4.1 g/dL Normal 3.5-5.7 [facility] Comment on above: Performed By: #### C BC, TSH3, CMP #### [address] Albumin/Globulin [Mass ratio] 1.4 {ratio} Normal [facility] Comment on above: Performed By: #### C BC, TSH3, CMP #### [address] ALP [Catalytic activity/Vol] 67 U/L Normal 34-104 [facility] Comment on above: Performed By: #### C BC, TSH3, CMP #### [address] ALT [Catalytic activity/Vol] 9 U/L Normal 7-52 [facility] Comment on above: Performed By: #### C BC, TSH3, CMP #### [address] Anion gap [Moles/Vol] 10.9 mmol/L Normal 6.0-15.0 [facility] Comment on above: Performed By: #### C BC, TSH3, CMP #### [address] AST [Catalytic activity/Vol] 17 U/L Normal 13-39 [facility] Comment on above: Performed By: #### C BC, TSH3, CMP #### [facility] [address] [place] [address] [place] Bilirubin [Mass/Vol] 0.4 mg/dL Normal 0.3-1.0 [facility] Comment on above: Performed By: #### C BC, TSH3, CMP #### [facility] [address] [place] [address] [place] Calcium [Mass/Vol] 9.5 mg/dL Normal 8.6-10.3 [facility] Comment on above: Performed By: #### C BC, TSH3, CMP #### [facility] [address] [place] [address] [place] Chloride [Moles/Vol] 100 mmol/L Normal 98-107 [facility] Comment on above: Performed By: #### C BC, TSH3, CMP #### [address] CO2 [Moles/Vol] 34.2 mmol/L High 21.0-31.0 [facility] Comment on above: Performed By: #### C BC, TSH3, CMP #### [facility] [address] [place] [address] [place] Creatinine [Mass/Vol] 0.98 mg/dL Normal 0.70-1.30 [facility] Comment on above: Performed By: #### C BC, TSH3, CMP #### [facility] [address] [place] [address] [place] Creatinine Clr Calc Pharmacy 64.64 Normal [facility] Comment on above: Performed By: #### C BC, TSH3, CMP #### [facility] [address] [place] [address] [place] GFR/1.73 sq M.predicted MDRD (S/P/Bld) [Vol rate/Area] mL/min/{1.73_m2} Normal [facility] Comment on above: Performed By: #### C BC, TSH3, CMP #### [facility] [address] [place] [address] [place] Globulin (S) [Mass/Vol] 3.0 g/dL Normal [facility] Comment on above: Performed By: #### C BC, TSH3, CMP #### [address] Glucose [Mass/Vol] 149 mg/dL High 70-100 [facility] Comment on above: Result Comment: [place] Glucose Reference Range is dependent on time and content of last meal. Glucose of more than 200 mg/dL in a nonstressed, ambulatory subject supports the diagnosis of Diabetes Mellitus. ADA recommended reference range Performed By: #### C BC, TSH3, CMP #### [address] Potassium [Moles/Vol] 4.1 mmol/L Normal 3.5-5.1 [facility] Comment on above: Performed By: #### C BC, TSH3, CMP #### [address] Protein [Mass/Vol] 7.1 g/dL Normal 6.4-8.9 [facility] Comment on above: Performed By: #### C BC, TSH3, CMP #### [address] Sodium [Moles/Vol] 141 mmol/L Normal 136-145 [facility] Comment on above: Performed By: #### C BC, TSH3, CMP #### [address] Urea nitrogen [Mass/Vol] 17 mg/dL Normal 7-25 [facility] Comment on above: Performed By: #### C BC, TSH3, CMP #### [address] Thyroid Stimulating Hormoneo n 06-20-2023 TSH Qn 3.35 m[IU]/L Normal 0.45-5.33 [facility] Comment on above: Result Comment: PERF ORMED BY: [place] [address] PATHOLOGIST CARD CLEANER PABLO ZHAO M.D. Performed By: #### C BC, TSH3, CMP #### [address] [place] [address] [facility] Progress Noteson 12-28-2022 Clinic Clerk Authentication Interface Message Text EMERGENCY TRIAGE, TREAT AND TRANSPORT (ET3) DOCUMENTATION OF TELEHEALTH VISIT Date / Time: 12/28/20222099 Name: Roxann Rm : 1950 SSN: (Not on file) EMS Agency: [facility] [x] Verbal consent obtained [] Implied [...] Completed by: Em Staples MD Normal [facility] XR CHEST 2 Von 12-26-2022 XR [...] OBINNA ARORA Date: 2022-12-26 17:38 Normal [facility] CBC AUTO DIFFon 12-15-2022 BASO # 0.0 103/ul Normal 0.0-0.1 [facility] Comment on above: Performed By: #### I NFLUAB #### [facility] [address] [place] [address] [address] Berta Thakkar Basophils/100 WBC (Bld) 0.3 % Normal 0.2-2.0 [facility] Comment on above: Performed By: #### I NFLUAB #### [facility] [address] [place] [address] [address] Berta Thakkar EO # 0.0 103/ul Normal 0.0-0.7 [facility] Comment on above: Performed By: #### I NFLUAB #### [facility] [address] [place] [address] [address] Berta Thakkar Eosinophils/100 WBC (Bld) 0.0 % Critically low 0.9-7.0 [facility] Comment on above: Performed By: #### I NFLUAB #### [facility] [address] [place] [address] [address] Berta Thakkar Erythrocyte distribution width (RBC) [Ratio] 26.2 % Critically high 11.0-15.0 [facility] Comment on above: Performed By: #### I NFLUAB #### [facility] [address] [place] [address] [address] Berta Thakkar Hematocrit (Bld) [Volume fraction] 29.3 % Critically low 42.0-54.0 [facility] Comment on above: Performed By: #### I NFLUAB #### [facility] [address] [place] [address] Dr. Berta Thakkar Hemoglobin (Bld) [Mass/Vol] 9.2 g/dL Critically low 14.0-18.0 [facility] Comment on above: Performed By: #### I NFLUAB #### [facility] [address] [place] [address] Dr. Berta Thakkar IG # 0.01 10e3/ul Normal 0.00-0.03 [facility] Comment on above: Performed By: #### I NFLUAB #### [facility] [address] [place] [address] Dr. Berta Thakkar IG % 0.3 % Normal 0.0-0.5 [facility] Comment on above: Performed By: #### I NFLUAB #### [facility] [address] [place] [address] Dr. Berta Thakkar LYMPH # 0.1 103/ul Critically low 1.2-3.8 [facility] Comment on above: Performed By: #### I NFLUAB #### [facility] [address] [place] [address] Dr. Berta Thakkar Lymphocytes/100 WBC (Bld) 3.6 % Critically low 20.5-60.0 [facility] Comment on above: Performed By: #### I NFLUAB #### [facility] [address] [place] [address] Dr. Berta Thakkar MANUAL DIFF REQ NO Normal [facility] Comment on above: Performed By: #### I NFLUAB #### [facility] [address] [place] [address] Dr. Berta Thakkar MCH (RBC) [Entitic mass] 28.0 pg Normal 25.9-34.0 [facility] Comment on above: Performed By: #### I NFLUAB #### [facility] [address] [place] [address] Dr. Berta Thakkar MCHC (RBC) [Mass/Vol] 31.4 g/dL Normal 29.9-35.2 [facility] Comment on above: Performed By: #### I NFLUAB #### [facility] [facility] [address] [place] [address] Dr. Berta Thakkar MCV (RBC) [Entitic vol] 89.3 fL Normal 80.0-94.0 [facility] Comment on above: Performed By: #### I NFLUAB #### [facility] [address] [place] [address] Dr. Berta Thakkar MONO # 0.1 103/ul Critically low 0.3-0.8 [facility] Comment on above: Performed By: #### I NFLUAB #### [facility] [address] [place] [address] Dr. Berta Thakkar Monocytes/100 WBC (Bld) 2.2 % Normal 1.7-12.0 [facility] Comment on above: Performed By: #### I NFLUAB #### [facility] [address] [place] [address] Dr. Berta Thakkar NEUT # 3.4 103/ul Normal 1.4-6.5 [facility] Comment on above: Performed By: #### I NFLUAB #### [facility] [address] [place] [address] Dr. Berta Thakkar Neutrophils/100 WBC (Bld) 93.6 % Critically high 43.0-75.0 [facility] Comment on above: Performed By: #### I NFLUAB #### [facility] [address] [place] [address] Dr. Berta Thakkar Platelet mean volume (Bld) [Entitic vol] 9.7 fL Normal 9.5-13.5 [facility] Comment on above: Performed By: #### I NFLUAB #### [facility] [address] [place] [address] Dr. Berta Thakkar PLT 77 103/ul Critically low 150-450 [facility] Comment on above: Performed By: #### I NFLUAB #### [facility] [address] [place] [address] Dr. Berta Thakkar RBC 3.28 106/ul Critically low 4.70-6.[address] [facility] Comment on above: Performed By: #### I NFLUAB #### [facility] [address] [address] [address] Berta Thakkar WBC 3.6 103/ul Critically low 4.0-11.0 [facility] Comment on above: Performed By: #### I NFLUAB #### [facility] [address] [place] [address] Dr. Berta Thakkar PROF 14(COMP METB)on 023 Albumin [Mass/Vol] 2.5 g/dL Critically low 3.4-5.0 [facility] Comment on above: Performed By: #### I NFLUAB #### [facility] [address] [place] [address] Dr. Berta Thakkar Albumin/Globulin [Mass ratio] 0.7 {ratio} Normal [facility] Comment on above: Performed By: #### I NFLUAB #### [facility] [address] [place] [address] Dr. Berta Thakkar ALP [Catalytic activity/Vol] 46 U/L Normal 46-116 [facility] Comment on above: Performed By: #### I NFLUAB #### [facility] [address] [place] [address] Dr. Berta Thakkar ALT [Catalytic activity/Vol] 19 U/L Normal 16-63 [facility] Comment on above: Performed By: #### I NFLUAB #### [facility] [address] [place] [address] Dr. Berta Thakkar Anion gap [Moles/Vol] 11.0 mmol/L Normal [facility] Comment on above: Performed By: #### I NFLUAB #### [facility] [address] [place] [address] Dr. Berta Thakkar AST [Catalytic activity/Vol] 33 U/L Normal 15-37 [facility] Comment on above: Performed By: #### I NFLUAB #### [facility] [address] [place] [address] Dr. Berta Thakkar Bilirubin [Mass/Vol] 0.3 mg/dL Normal 0.2-1.0 [facility] Comment on above: Performed By: #### I NFLUAB #### [facility] [address] [place] [address] Dr. Berta Thakkar Calcium [Mass/Vol] 8.6 mg/dL Normal 8.5-10.1 [facility] Comment on above: Performed By: #### I NFLUAB #### [facility] [address] [address] [address] Berta Thakkar Chloride [Moles/Vol] 109 mmol/L Critically high 98-107 [facility] Comment on above: Performed By: #### I NFLUAB #### [facility] [address] [place] [address] Dr. Berta Thakkar CO2 [Moles/Vol] 26.1 mmol/L Normal 21.0-32.0 [facility] Comment on above: Performed By: #### I NFLUAB #### [facility] [address] [place] [address] Dr. Berta Thakkar Creatinine [Mass/Vol] 0.89 mg/dL Normal 0.70-1.30 [facility] Comment on above: Performed By: #### I NFLUAB #### [facility] [address] [place] [address] Dr. Berta Thakkar EGFR-AF COMORAN >60 Normal >=60 [facility] Comment on above: Performed By: #### I NFLUAB #### [facility] [address] [place] [address] Dr. Berta Thakkar EGFR-NON AF COMORAN >60 Normal >=60 [facility] Comment on above: Performed By: #### I NFLUAB #### [facility] [address] [place] [address] Dr. Berta Thakkar Globulin (S) [Mass/Vol] 3.7 g/dL Normal [facility] Comment on above: Performed By: #### I NFLUAB #### [facility] [address] [place] [address] Dr. Berta Thakkar Glucose [Mass/Vol] 188 mg/dL Critically high 74-106 [facility] Comment on above: Performed By: #### I NFLUAB #### [facility] [address] [place] [address] Dr. Berta Thakkar Potassium [Moles/Vol] 4.1 mmol/L Normal 3.5-5.1 [facility] Comment on above: Performed By: #### I NFLUAB #### [facility] [address] [place] [address] Dr. Berta Thakkar Protein [Mass/Vol] 6.2 g/dL Critically low 6.4-8.2 [facility] Comment on above: Performed By: #### I NFLUAB #### [facility] [address] [place] [address] Dr. Berta Thakkar Sodium [Moles/Vol] 142 mmol/L Normal 136-145 [facility] Comment on above: Performed By: #### I NFLUAB #### [facility] [address] [place] [address] Dr. Berta Thakkar Urea nitrogen [Mass/Vol] 31.0 mg/dL Critically high 7.0-18.0 [facility] Comment on above: Performed By: #### I NFLUAB #### [facility] [address] [place] [address] Dr. Berta Thakkar Urea nitrogen/Creatinine [Mass ratio] 34.8 mg/mg Normal [facility] Comment on above: Performed By: #### I NFLUAB #### [facility] [address] [place] [address] Dr. Berta Thakkar CBC AUTO DIFFon 12-14-2022 BASO # 0.0 103/ul Normal 0.0-0.1 [facility] Comment on above: Performed By: #### I NFLUAB #### [facility] [address] [place] [address] Dr. Berta Thakkar Basophils/100 WBC (Bld) 0.0 % Critically low 0.2-2.0 [facility] Comment on above: Performed By: #### I NFLUAB #### [facility] [address] [address] [address] Berta Thakkar EO # 0.0 103/ul Normal 0.0-0.7 [facility] Comment on above: Performed By: #### I NFLUAB #### [facility] [address] [place] [address] Dr. Berta Thakkar Eosinophils/100 WBC (Bld) 0.0 % Critically low 0.9-7.0 [facility] Comment on above: Performed By: #### I NFLUAB #### [facility] [address] [place] [address] Dr. Berta Thakkar Erythrocyte distribution width (RBC) [Ratio] 26.3 % Critically high 11.0-15.0 [facility] Comment on above: Performed By: #### I NFLUAB #### [facility] [address] [place] [address] Dr. Berta Thakkar Hematocrit (Bld) [Volume fraction] 29.7 % Critically low 42.0-54.0 [facility] Comment on above: Performed By: #### I NFLUAB #### [facility] [address] [place] [address] Dr. Berta Thakkar Hemoglobin (Bld) [Mass/Vol] 9.2 g/dL Critically low 14.0-18.0 [facility] Comment on above: Performed By: #### I NFLUAB #### [facility] [address] [place] [address] Dr. Berta Thakkar IG # 0.00 10e3/ul Normal 0.00-0.03 [facility] Comment on above: Performed By: #### I NFLUAB #### [facility] [address] [place] [address] Dr. Berta Thakkar IG % 0.0 % Normal 0.0-0.5 [facility] Comment on above: Performed By: #### I NFLUAB #### [facility] [address] [place] [address] Dr. Berta Thakkar LYMPH # 0.2 103/ul Critically low 1.2-3.8 [facility] Comment on above: Performed By: #### I NFLUAB #### [facility] [address] [address] [address] Berta Thakkar Lymphocytes/100 WBC (Bld) 5.4 % Critically low 20.5-60.0 [facility] Comment on above: Performed By: #### I NFLUAB #### [facility] [address] [place] [address] Dr. Berta Thakkar MANUAL DIFF REQ NO Normal [facility] Comment on above: Performed By: #### I NFLUAB #### [facility] [address] [address] [address] Berta Thakkar MCH (RBC) [Entitic mass] 27.8 pg Normal 25.9-34.0 [facility] Comment on above: Performed By: #### I NFLUAB #### [facility] [address] [place] [address] Dr. Berta Thakkar MCHC (RBC) [Mass/Vol] 31.0 g/dL Normal 29.9-35.2 [facility] Comment on above: Performed By: #### I NFLUAB #### [facility] [address] [place] [address] Dr. Berta hTakkar MCV (RBC) [Entitic vol] 89.7 fL Normal 80.0-94.0 [facility] Comment on above: Performed By: #### I NFLUAB #### [facility] [address] [place] [address] Dr. Berta Thakkar MONO # 0.1 103/ul Critically low 0.3-0.8 [facility] Comment on above: Performed By: #### I NFLUAB #### [facility] [address] [place] [address] Dr. Berta Thakkar Monocytes/100 WBC (Bld) 1.6 % Critically low 1.7-12.0 [facility] Comment on above: Performed By: #### I NFLUAB #### [facility] [address] [place] [address] Dr. Berta Thakkar NEUT # 3.5 103/ul Normal 1.4-6.5 [facility] Comment on above: Performed By: #### I NFLUAB #### [facility] [address] [address] [address] Berta Thakkar Neutrophils/100 WBC (Bld) 93.0 % Critically high 43.0-75.0 [facility] Comment on above: Performed By: #### I NFLUAB #### [facility] [address] [address] [address] Berta Thakkar Platelet mean volume (Bld) [Entitic vol] 9.7 fL Normal 9.5-13.5 [facility] Comment on above: Performed By: #### I NFLUAB #### [facility] [address] [place] [address] Dr. Berta Thakkar PLT 99 103/ul Critically low 150-450 [facility] Comment on above: Performed By: #### I NFLUAB #### [facility] [address] [address] [address] Berta Thakkar RBC 3.31 106/ul Critically low 4.70-6.[address] [facility] Comment on above: Performed By: #### I NFLUAB #### [facility] [address] [address] [address] Berta Thakkar WBC 3.7 103/ul Critically low 4.0-11.0 [facility] Comment on above: Performed By: #### I NFLUAB #### [facility] [address] [address] [address] Berta Thakkar PROF 14(COMP METB)on 023 Albumin [Mass/Vol] 2.5 g/dL Critically low 3.4-5.0 [facility] Comment on above: Performed By: #### C MP #### [facility] [address] [place] [address] Dr. Berta Thakkar Albumin/Globulin [Mass ratio] 0.7 {ratio} Normal [facility] Comment on above: Performed By: #### C MP #### [facility] [address] [place] [address] Dr. Berta Thakkar ALP [Catalytic activity/Vol] 55 U/L Normal 46-116 [facility] Comment on above: Performed By: #### C MP #### [facility] [address] [address] [address] Berta Thakkar ALT [Catalytic activity/Vol] 24 U/L Normal 16-63 [facility] Comment on above: Performed By: #### C MP #### [facility] [address] [address] [address] Berta Thakkar Anion gap [Moles/Vol] 12.6 mmol/L Normal [facility] Comment on above: Performed By: #### C MP #### [facility] [address] [address] [address] Berta Thakkar AST [Catalytic activity/Vol] 34 U/L Normal 15-37 [facility] Comment on above: Performed By: #### C MP #### [facility] [address] [address] [address] Berta Thakkar Bilirubin [Mass/Vol] 0.3 mg/dL Normal 0.2-1.0 [facility] Comment on above: Performed By: #### C MP #### [facility] [address] [address] [address] Berta Thakkar Calcium [Mass/Vol] 8.5 mg/dL Normal 8.5-10.1 [facility] Comment on above: Performed By: #### C MP #### [facility] [address] [address] [address] Berta Thakkar Chloride [Moles/Vol] 105 mmol/L Normal 98-107 [facility] Comment on above: Performed By: #### C MP #### [facility] [address] [address] [address] Berta Thakkar CO2 [Moles/Vol] 25.5 mmol/L Normal 21.0-32.0 [facility] Comment on above: Performed By: #### C MP #### [facility] [address] [address] [address] Berta Thakkar Creatinine [Mass/Vol] 0.97 mg/dL Normal 0.70-1.30 [facility] Comment on above: Performed By: #### C MP #### [facility] [address] [address] [address] Berta Thakkar EGFR-AF COMORAN >60 Normal >=60 [facility] Comment on above: Performed By: #### C MP #### [facility] [address] [address] [address] Berta Thakkar EGFR-NON AF COMORAN >60 Normal >=60 [facility] Comment on above: Performed By: #### C MP #### [facility] [address] [address] [address] Berta Thakkar Globulin (S) [Mass/Vol] 3.7 g/dL Normal [facility] Comment on above: Performed By: #### C MP #### [facility] [address] [address] [address] Berta Thakkar Glucose [Mass/Vol] 186 mg/dL Critically high 74-106 [facility] Comment on above: Performed By: #### C MP #### [facility] [address] [address] [address] Berta Thakkar Potassium [Moles/Vol] 4.1 mmol/L Normal 3.5-5.1 [facility] Comment on above: Performed By: #### C MP #### [facility] [address] [address] [address] Berta Thakkar Protein [Mass/Vol] 6.2 g/dL Critically low 6.4-8.2 [facility] Comment on above: Performed By: #### C MP #### [facility] [address] [address] [address] Berta Thakkar Sodium [Moles/Vol] 139 mmol/L Normal 136-145 [facility] Comment on above: Performed By: #### C MP #### [facility] [address] [address] [address] Berta Thakkar Urea nitrogen [Mass/Vol] 23.0 mg/dL Critically high 7.0-18.0 [facility] Comment on above: Performed By: #### C MP #### [facility] [address] [place] [address] Dr. Berta Thakkar Urea nitrogen/Creatinine [Mass ratio] 23.7 mg/mg Normal [facility] Comment on above: Performed By: #### C MP #### [facility] [address] [place] [address] Dr. Berta Thakkar PTT HEPARIN MONITORon 2022 aPTT Coag (Bld) [Time] 96.8 s Critically high 39.5-54.2 [facility] Comment on above: Performed By: #### P T, PTT #### [facility] [address] [place] [address] Dr. Berta Thakkar TROPONIN, HIGH SENSITIVITYon 12-14-2022 HSTROP 734.6 pg/mL Critically high 4.0-76.1 [facility] Comment on above: Result Comment: CUT- OFF POINTS HAVE BEEN ESTABLISHED BASED ON THE FOURTH UNIVERSAL DEFINITIONS OF MYOCARDIAL INFARCTION. THE UPPER REFERENCE LIMIT (URL) OF TROPONIN, DEFINED THE 99TH PERCENTILE OF cTnI DISTRIBUTION IN A REFERENCE POPULATION, HAS BEEN CONFIRMED THE DECISION THRESHOLD FOR NE DIAGNOSIS. Performed By: #### I NFLUAB #### [facility] [address] [place] [address] Dr. Berta Thakkar CARDIAC PAIGE 3-6on 3 CK [Catalytic activity/Vol] 38 U/L Critically low 39-308 [facility] Comment on above: Performed By: #### I NFLUAB #### [facility] [address] [place] [address] Dr. Berta Thakkar CK [Catalytic activity/Vol] 49 U/L Normal 39-308 [facility] Comment on above: Performed By: #### C MREP #### [facility] [address] [place] [address] Dr. Berta Thakkar CK.MB [Mass/Vol] 0.38 ng/mL Normal <=3.60 [facility] Comment on above: Performed By: #### I NFLUAB #### [facility] [address] [place] [address] Dr. Berta Thakkar CK.MB [Mass/Vol] 0.73 ng/mL Normal <=3.60 [facility] Comment on above: Performed By: #### C MREP #### [facility] [address] [address] [address] Berta Thakkar HSTROP 71.8 pg/mL Normal 4.0-76.1 [facility] Comment on above: Result Comment: CUT- OFF POINTS HAVE BEEN ESTABLISHED BASED ON THE FOURTH UNIVERSAL DEFINITIONS OF MYOCARDIAL INFARCTION. THE UPPER REFERENCE LIMIT (URL) OF TROPONIN, DEFINED THE 99TH PERCENTILE OF cTnI DISTRIBUTION IN A REFERENCE POPULATION, HAS BEEN CONFIRMED THE DECISION THRESHOLD FOR NE DIAGNOSIS. Performed By: #### I NFLUAB #### [facility] [address] [address] [address] Berta Thakkar HSTROP 177.7 pg/mL Critically high 4.0-76.1 [facility] Comment on above: Result Comment: CUT- OFF POINTS HAVE BEEN ESTABLISHED BASED ON THE FOURTH UNIVERSAL DEFINITIONS OF MYOCARDIAL INFARCTION. THE UPPER REFERENCE LIMIT (URL) OF TROPONIN, DEFINED THE 99TH PERCENTILE OF cTnI DISTRIBUTION IN A REFERENCE POPULATION, HAS BEEN CONFIRMED THE DECISION THRESHOLD FOR NE DIAGNOSIS. Performed By: #### C MREP #### [facility] [address] [address] [address] Berta Thakkar CARDIAC PAIGE ADMITon 023 CK [Catalytic activity/Vol] 47 U/L Normal 39-308 [facility] Comment on above: Performed By: #### H STROPN #### [facility] [address] [id number] [address] Berta Thakkar CK.MB [Mass/Vol] 0.36 ng/mL Normal <=3.60 [facility] Comment on above: Performed By: #### H STROPN #### [facility] [address] [place], [place] [address] Dr. Berta Thakkar HSTROP 83.0 pg/mL Critically high 4.0-76.1 [facility] Comment on above: Result Comment: CUT- OFF POINTS HAVE BEEN ESTABLISHED BASED ON THE FOURTH UNIVERSAL DEFINITIONS OF MYOCARDIAL INFARCTION. THE UPPER REFERENCE LIMIT (URL) OF TROPONIN, DEFINED THE 99TH PERCENTILE OF cTnI DISTRIBUTION IN A REFERENCE POPULATION, HAS BEEN CONFIRMED THE DECISION THRESHOLD FOR NE DIAGNOSIS. Performed By: #### H STROPN #### [facility] [address] [address] [address] Berta Thakkar CAROL 56 ng/mL Normal 16-96 [facility] Comment on above: Performed By: #### H STROPN #### [facility] [address] [address] [address] Berta Thakkar CBC AUTO DIFFon 12-13-2022 BASO # 0.0 103/ul Normal 0.0-0.1 [facility] Comment on above: Performed By: #### I NFLUAB #### [facility] [address] [place] [address] Dr. Berta Thakkar Basophils/100 WBC (Bld) 0.2 % Normal 0.2-2.0 [facility] Comment on above: Performed By: #### I NFLUAB #### [facility] [address] [place] [address] Dr. Berta Thakkar EO # 0.0 103/ul Normal 0.0-0.7 [facility] Comment on above: Performed By: #### I NFLUAB #### [facility] [address] [place] [address] Dr. Berta Thakkar Eosinophils/100 WBC (Bld) 1.0 % Normal 0.9-7.0 [facility] Comment on above: Performed By: #### I NFLUAB #### [facility] [address] [place] [address] Dr. Berta Thakkar Erythrocyte distribution width (RBC) [Ratio] 25.6 % Critically high 11.0-15.0 [facility] Comment on above: Performed By: #### I NFLUAB #### [facility] [address] [place] [address] Dr. Berta Thakkar Hematocrit (Bld) [Volume fraction] 37.2 % Critically low 42.0-54.0 [facility] Comment on above: Performed By: #### I NFLUAB #### [facility] [address] [place] [address] Dr. Berta Thakkar Hemoglobin (Bld) [Mass/Vol] 11.6 g/dL Critically low 14.0-18.0 [facility] Comment on above: Performed By: #### I NFLUAB #### [facility] [address] [place] [address] Dr. Berta Thakkar IG # 0.02 10e3/ul Normal 0.00-0.03 [facility] Comment on above: Performed By: #### I NFLUAB #### [facility] [address] [place] [address] Dr. Berta Thakkar IG % 0.5 % Normal 0.0-0.5 [facility] Comment on above: Performed By: #### I NFLUAB #### [facility] [address] [place] [address] Dr. Berta Thakkar LYMPH # 0.5 103/ul Critically low 1.2-3.8 [facility] Comment on above: Performed By: #### I NFLUAB #### [facility] [address] [place] [address] Dr. Berta Thakkar Lymphocytes/100 WBC (Bld) 11.3 % Critically low 20.5-60.0 [facility] Comment on above: Performed By: #### I NFLUAB #### [facility] [address] [place] [address] Dr. Berta Thakkar MANUAL DIFF REQ NO Normal [facility] Comment on above: Performed By: #### I NFLUAB #### [facility] [address] [place] [address] Dr. Berta Thakkar MCH (RBC) [Entitic mass] 27.9 pg Normal 25.9-34.0 [facility] Comment on above: Performed By: #### I NFLUAB #### [facility] [address] [place] [address] Dr. Berta Thakkar MCHC (RBC) [Mass/Vol] 31.2 g/dL Normal 29.9-35.2 [facility] Comment on above: Performed By: #### I NFLUAB #### [facility] [address] [place] [address] Dr. Berta Thakkar MCV (RBC) [Entitic vol] 89.4 fL Normal 80.0-94.0 [facility] Comment on above: Performed By: #### I NFLUAB #### [facility] [address] [place] [address] Dr. Berta Thakkar MONO # 0.3 103/ul Normal 0.3-0.8 [facility] Comment on above: Performed By: #### I NFLUAB #### [facility] [address] [place] [address] Dr. Berta Thakkar Monocytes/100 WBC (Bld) 8.3 % Normal 1.7-12.0 [facility] Comment on above: Performed By: #### I NFLUAB #### [facility] [address] [place] [address] Dr. Berta Thakkar NEUT # 3.2 103/ul Normal 1.4-6.5 [facility] Comment on above: Performed By: #### I NFLUAB #### [facility] [address] [place] [address] Dr. Berta Thakkar Neutrophils/100 WBC (Bld) 78.7 % Critically high 43.0-75.0 [facility] Comment on above: Performed By: #### I NFLUAB #### [facility] [address] [place] [address] Dr. Berta Thakkar Platelet mean volume (Bld) [Entitic vol] 9.2 fL Critically low 9.5-13.5 [facility] Comment on above: Performed By: #### I NFLUAB #### [facility] [address] [place] [address] Dr. Berta Thakkar PLT 129 103/ul Critically low 150-450 [facility] Comment on above: Performed By: #### I NFLUAB #### [facility] [address] [place] [address] Dr. Berta Thakkar RBC 4.16 106/ul Critically low 4.70-6.10 [facility] Comment on above: Performed By: #### I NFLUAB #### [facility] [address] [place] [address] Dr. Berta Thakkar WBC 4.1 103/ul Normal 4.0-11.0 [facility] Comment on above: Performed By: #### I NFLUAB #### [facility] [address] [place] [address] Dr. Berta Thakkar CBC W MANUAL DIFFon 12-13-19 23 ANISOCYTOSIS 3+ Normal [facility] Comment on above: Performed By: #### C BCMAN #### [facility] [address] [place] [address] Dr. Berta Thakkar ATYPICAL LYMPH # Normal [facility] Comment on above: Performed By: #### C BCMAN #### [facility] [address] [place] [address] Dr. Berta Thakkar ATYPICAL LYMPH % Normal [facility] Comment on above: Performed By: #### C BCMAN #### [facility] [address] [place] [address] Dr. Berta Thakkar BAND # 0.7 103/ul Critically high 0.0-0.[address] [facility] Comment on above: Performed By: #### C BCMAN #### [facility] [address] [place] [address] Dr. Berta Thakkar BAND % 19 % Critically high 0-5 [facility] Comment on above: Performed By: #### C BCMAN #### [facility] [address] [place] [address] Dr. Berta Thakkar BASOM # 0.00 103/ul Normal 0.00-0.10 [facility] Comment on above: Performed By: #### C BCMAN #### [facility] [address] [place] [address] Dr. Berta Thakkar BASOM % 0.0 % Critically low 0.2-2.0 [facility] Comment on above: Performed By: #### C BCMAN #### [facility] [address] [place] [address] Dr. Berta Thakkar BLAST # Normal [facility] Comment on above: Performed By: #### C BCMAN #### [facility] [address] [place] [address] Dr. Berta Thakkar BLAST % Normal [facility] Comment on above: Performed By: #### C BCKOURTNEY #### [facility] [address] [address] [address] Berta Thakkar CORRECTED WBC Normal 4.0-11.0 [facility] Comment on above: Performed By: #### C TEOFILO #### [facility] [address] [address] [address] Berta Thakkar EOS # 0.04 103/ul Normal 0.00-0.70 [facility] Comment on above: Performed By: #### C TEOFILO #### [facility] [address] [address] [address] Berta Thakkar EOS% 1.0 % Normal 0.9-7.0 [facility] Comment on above: Performed By: #### C TEOFILO #### [facility] [address] [address] [address] Berta Thakkar HCT 28.8 % Critically low 42.0-54.0 [facility] Comment on above: Performed By: #### C TEOFILO #### [facility] [address] [address] [address] Berta Thakkar HGB 9.0 g/dl Critically low 14.0-18.0 [facility] Comment on above: Performed By: #### C TEOFILO #### [facility] [address] [address] [address] Berta Thakkar LYMPHM # 0.16 103/ul Critically low 1.20-3.80 [facility] Comment on above: Performed By: #### C BCKOURTNEY #### [facility] [address] [address] [address] Berta Thakkar LYMPHM% 4.0 % Critically low 20.5-60.0 [facility] Comment on above: Performed By: #### C TEOFILO #### [facility] [address] [address] [address] Berta Thakkar MCH 27.9 pg Normal 25.9-34.0 [facility] Comment on above: Performed By: #### C TEOFILO #### [facility] [address] [address] [address] Berta Thakkar MCHC 31.3 g/dl Normal 29.9-35.2 [facility] Comment on above: Performed By: #### C TEOFILO #### [facility] [address] [place] [address] Dr. Berta Thakkar MCV 89.2 fL Normal 80.0-94.0 [facility] Comment on above: Performed By: #### C TEOFILO #### [facility] [address] [place] [address] Dr. Berta Thakkar METAMYELOCYTE # Normal [facility] Comment on above: Performed By: #### C TEOFILO #### [facility] [address] [place] [address] Dr. Berta Thakkar METAMYELOCYTE % Normal [facility] Comment on above: Performed By: #### C TEOFILO #### [facility] [address] [place] [address] Dr. Berta Thakkar MONOM# 0.04 103/ul Critically low 0.30-0.[address] [facility] Comment on above: Performed By: #### C TEOFILO #### [facility] [address] [place] [address] Dr. Berta Thakkar MONOM% 1.0 % Critically low 1.7-12.0 [facility] Comment on above: Performed By: #### C TEOFILO #### [facility] [address] [place] [address] Dr. Berta Thakkar MPV 8.9 fL Critically low 9.5-13.5 [facility] Comment on above: Performed By: #### C TEOFILO #### [facility] [address] [place] [address] Dr. Berta Thakkar MYELOCYTE # Normal [facility] Comment on above: Performed By: #### C TEOFILO #### [facility] [address] [place] [address] Dr. Berta Thakkar MYELOCYTE % Normal [facility] Comment on above: Performed By: #### C TEOFILO #### [facility] [address] [place] [address] Dr. Berta Thakkar NRBC Normal [facility] Comment on above: Performed By: #### C TEOFILO #### [facility] [address] [address] [address] Berta Thakkar PLT 95 103/ul Critically low 150-450 [facility] Comment on above: Performed By: #### C TEOFILO #### [facility] [address] [place] [address] Dr. Berta Thakkar RBC 3.23 106/ul Critically low 4.70-6.[address] [facility] Comment on above: Performed By: #### C TEOFILO #### [facility] [address] [place] [address] Dr. Berta Thakkar RDW 26.3 % Critically high 11.0-15.[address] [facility] Comment on above: Performed By: #### C TEOFILO #### [facility] [address] [place] [address] Dr. Berta Thakkar SEG # 2.92 103/ul Normal 1.40-6.50 [facility] Comment on above: Performed By: #### C TEOFILO #### [facility] [address] [place] [address] Dr. Berta Thakkar SEG % 75.0 % Normal 43.0-75.0 [facility] Comment on above: Performed By: #### C TEOFILO #### [facility] [address] [place] [address] Dr. Berta Thakkar TOXIC GRANULATION 3+ Normal [facility] Comment on above: Performed By: #### C TEOFILO #### [facility] [address] [place] [address] Dr. Berta Thakkar WBC 3.9 103/ul Critically low 4.0-11.0 [facility] Comment on above: Performed By: #### C TEOFILO #### [facility] [address] [place] [address] Dr. Berta Thakkar CULTURE BLOODon 12-13-2022 Microscopic examination of blood, culture Culture Observations: NO GROWTH AT 5 DAYS. Normal [facility] Comment on above: Performed By: #### H STRO #### [facility] [address] [place], [place] [address] Dr. Berta Thakkar Covid-19 PCR ([facility])on 11-27 SARS-CoV-2 (COVID-19) RNA VALENTINO+probe Ql (Unsp spec) Detected Abnormal NOT DETECTED [facility] Comment on above: Result Comment: When [...] for this test is supported by the [employer] of Health and Human Service's declaration that [...] for this test is supported by the [place] of Health and Human Service's declaration that [...] 00:49 By MH01 Performed By: #### [facility] #### [facility] [address] [place], [place] [address] Dr. Berta Thakkar ECHO LIMITED STUDYon 023 ECHO LIMITED STUDY Patient: CINDY RM Exam Date: 12/13/2022 : 1950 Gender:M Ordering : DR ABILIO KAY . Admission #: [id number] Family : Order #: [id number] CLICK HERE TO VIEW EXAM ECHOCARDIOGRAM REPORT [...] Saunders M.D. on 12/15/2022 at 10:13 Normal [facility] URINE PROFILEon 3 Bilirubin Ql (U) Negative Normal NEGATIVE [facility] Comment on above: Performed By: #### I NFLUAB #### [facility] [address] [place] [address] Dr. Berta Thakkar Clarity (U) CLEAR Normal CLEAR [facility] Comment on above: Performed By: #### I NFLUAB #### [facility] [address] [place] [address] Dr. Berta Thakkar Color (U) LT. YELLOW Normal YELLOW [facility] Comment on above: Performed By: #### I NFLUAB #### [facility] [address] [place] [address] Dr. Berta SHOEMAKER A micrscopic examination will be performed if indicated. Normal [facility] Comment on above: Performed By: #### I NFLUAB #### [facility] [address] [place] [address] Dr. Berta Thakkar Glucose Ql (U) 250 mg/dl Abnormal NEGATIVE [facility] Comment on above: Performed By: #### I NFLUAB #### [facility] [address] [place] [address] Dr. Berta Thakkar Hemoglobin Ql (U) Negative Normal NEGATIVE [facility] Comment on above: Performed By: #### I NFLUAB #### [facility] [address] [place] [address] Dr. Berta Thakkar Ketones Ql (U) TRACE Abnormal NEGATIVE [facility] Comment on above: Performed By: #### I NFLUAB #### [facility] [address] [place] [address] Dr. Berta Thakkar LEUKOCYTES Negative Normal NEGATIVE [facility] Comment on above: Performed By: #### I NFLUAB #### [facility] [address] [place] [address] Dr. Berta Thakkar Nitrite Ql (U) Negative Normal NEGATIVE [facility] Comment on above: Performed By: #### I NFLUAB #### [facility] [address] [place] [address] Dr. Berta Thakkar pH (U) 6.0 [pH] Normal 5-9 [facility] Comment on above: Performed By: #### I NFLUAB #### [facility] [address] [place] [address] Dr. Berta Thakkar SPEC GRAVITY 1.025 Normal 1.005-<=1.[address] [facility] Comment on above: Performed By: #### I NFLUAB #### [facility] [address] [place] [address] Dr. Berta Thakkar UA PROTEIN TRACE Normal NEGATIVE/ TRACE [facility] Comment on above: Performed By: #### I NFLUAB #### [facility] [address] [place] [address] Dr. Berta Thakkar UR MICRO IND NOT INDICATED Normal [facility] Comment on above: Performed By: #### I NFLUAB #### [facility] [address] [place] [address] Dr. Berta Thakkar Urobilinogen Qn (U) 0.2 {Roro'U}/dL Normal 0.2 - 1. 0 [facility] Comment on above: Performed By: #### I NFLUAB #### [facility] [address] [place] [address] Dr. Berta Thakkar INFLUENZA A AND B AGon 12-13 [facility] BEL[facility] Normal [facility] Comment on above: Result Comment: Nega tive for Flu A protein angiten. Infection due to Flu A cannot be ruled out. Flu A angiten in the sample may be below the detection limit of the test. Performed By: #### I NFLUAB #### [facility] [address] [place] [address] Dr. Berta Thakkar INFLUBNEGH SEE BELOW Normal [facility] Comment on above: Result Comment: Nega tive for Flu B protein antigen. Infection due to Flu B cannot be ruled out. Flu B antigen in the sample may be below the detection limit of the test. Performed By: #### I NFLUAB #### [facility] [address] [place] [address] Dr. Berta Thakkar INFLUENZA A AG Negative Normal NEGATIVE SEE COMMENT [facility] Comment on above: Performed By: #### I NFLUAB #### [facility] [address] [place] [address] Dr. Berta Thakkar INFLUENZA B AG Negative Normal NEGATIVE SEE COMMENT [facility] Comment on above: Performed By: #### I NFLUAB #### [facility] [address] [place] [address] Dr. Berta Thakkar LACTATE/LACTIC ACIDon 2022 Lactate [Moles/Vol] 1.3 mmol/L Normal 0.4-1.9 [facility] Comment on above: Performed By: #### I NFLUAB #### [facility] [address] [place] [address] Dr. Berta Thakkar Lactate [Moles/Vol] 1.6 mmol/L Normal 0.4-1.9 [facility] Comment on above: Performed By: #### I NFLUAB #### [facility] [address] [place] [address] Dr. Berta Thakkar POINT OF CARE GLUCOSEon 11-27 Glucose [Mass/Vol] 217 mg/dL Critically high 74-106 [facility] Comment on above: Performed By: #### P T, PTT #### [facility] [address] [place] [address] Dr. Berta Thakkar PROF CHEM 8 (BAS METB)on Anion gap [Moles/Vol] 12.7 mmol/L Normal [facility] Comment on above: Performed By: #### H STROPN #### [facility] [address] [place] [address] Dr. Berta Thakkar Calcium [Mass/Vol] 9.3 mg/dL Normal 8.5-10.1 [facility] Comment on above: Performed By: #### H STROPN #### [facility] [address] [place] [address] Dr. Berta Thakkar Chloride [Moles/Vol] 98 mmol/L Normal 98-107 [facility] Comment on above: Performed By: #### H STROPN #### [facility] [address] [place] [address] Dr. Berta Thakkar CO2 [Moles/Vol] 30.4 mmol/L Normal 21.0-32.0 [facility] Comment on above: Performed By: #### H STROPN #### [facility] [address] [address] [address] Berta Thakkar Creatinine [Mass/Vol] 1.27 mg/dL Normal 0.70-1.30 [facility] Comment on above: Performed By: #### H STROPN #### [facility] [address] [address] [address] Berta Thakkar EGFR-AF COMORAN >60 Normal >=60 [facility] Comment on above: Performed By: #### H STROPN #### [facility] [address] [address] [address] Berta Thakkar EGFR-NON AF COMORAN 56 mL/min/1.73m2 Critically low >=60 [facility] Comment on above: Performed By: #### H STROPN #### [facility] [address] [address] [address] Berta Thakkar Glucose [Mass/Vol] 185 mg/dL Critically high 74-106 [facility] Comment on above: Performed By: #### H STROPN #### [facility] [address] [place] [address] Dr. Berta Thakkar Potassium [Moles/Vol] 4.1 mmol/L Normal 3.5-5.1 [facility] Comment on above: Performed By: #### H STROPN #### [facility] [address] [address] [address] Berta Thakkar Sodium [Moles/Vol] 137 mmol/L Normal 136-145 [facility] Comment on above: Performed By: #### H STROPN #### [facility] [address] [address] [address] Berta Thakkar Urea nitrogen [Mass/Vol] 27.0 mg/dL Critically high 7.0-18.0 [facility] Comment on above: Performed By: #### H STROPN #### [facility] [address] [place] [address] Dr. Berta Thakkar Urea nitrogen/Creatinine [Mass ratio] 21.3 mg/mg Normal [facility] Comment on above: Performed By: #### H STROPN #### [facility] [address] [place] [address] Dr. Berta Thakkar PROTIMEon 12-13-2022 INR Coag (PPP) [Relative time] 1.10 {INR} Normal [facility] Comment on above: Performed By: #### P T, PTT #### [facility] [address] [place] [address] Dr. Berta Thakkar INR GUIDELINES SEE BELOW Normal [facility] Comment on above: Result Comment: ANTHONY RED INR: 2.0 - 3.0 CONDITIONS NOT LISTED BELOW 2.5 - 3.5 FOR PROSTHETIC HEART VALVE REPLACEMENT 2.5 - 3.5 RECURRENT THROMBOSIS Performed By: #### P T, PTT #### [facility] [address] [place] [address] Dr. Berta Thakkar PT Coag (PPP) [Time] 11.6 s Normal 9.0-11.6 [facility] Comment on above: Performed By: #### P T, PTT #### [facility] [address] [place] [address] Dr. Berta Thakkar PTTon 12-13-2022 aPTT Coag (Bld) [Time] 35.0 s Normal 22.3-36.2 [facility] Comment on above: Performed By: #### P T, PTT #### [facility] [address] [place] [address] Dr. Berta Thakkar TROPONIN, HIGH SENSITIVITYon 12-13-2022 HSTROP 1065.9 pg/mL Critically high 4.0-76.1 [facility] Comment on above: Result Comment: CUT- OFF POINTS HAVE BEEN ESTABLISHED BASED ON THE FOURTH UNIVERSAL DEFINITIONS OF MYOCARDIAL INFARCTION. THE UPPER REFERENCE LIMIT (URL) OF TROPONIN, DEFINED THE 99TH PERCENTILE OF cTnI DISTRIBUTION IN A REFERENCE POPULATION, HAS BEEN CONFIRMED THE DECISION THRESHOLD FOR NE DIAGNOSIS. Performed By: #### P T, PTT #### [facility] [address] [place] [address] Dr. Berta Thakkar HSTROP 2122.6 pg/mL Critically high 4.0-76.1 [facility] Comment on above: Result Comment: CUT- OFF POINTS HAVE BEEN ESTABLISHED BASED ON THE FOURTH UNIVERSAL DEFINITIONS OF MYOCARDIAL INFARCTION. THE UPPER REFERENCE LIMIT (URL) OF TROPONIN, DEFINED THE 99TH PERCENTILE OF cTnI DISTRIBUTION IN A REFERENCE POPULATION, HAS BEEN CONFIRMED THE DECISION THRESHOLD FOR NE DIAGNOSIS. Performed By: #### H STROPN #### [facility] [address] [address] [address] Berta Thakkar HSTROP 2303.4 pg/mL Critically high 4.0-76.1 [facility] Comment on above: Result Comment: CUT- OFF POINTS HAVE BEEN ESTABLISHED BASED ON THE FOURTH UNIVERSAL DEFINITIONS OF MYOCARDIAL INFARCTION. THE UPPER REFERENCE LIMIT (URL) OF TROPONIN, DEFINED THE 99TH PERCENTILE OF cTnI DISTRIBUTION IN A REFERENCE POPULATION, HAS BEEN CONFIRMED THE DECISION THRESHOLD FOR NE DIAGNOSIS. Performed By: #### H STROPN #### [facility] [address] [address] [address] Berta Thakkar HSTROP 1727.1 pg/mL Critically high 4.0-76.1 [facility] Comment on above: Result Comment: CUT- OFF POINTS HAVE BEEN ESTABLISHED BASED ON THE FOURTH UNIVERSAL DEFINITIONS OF MYOCARDIAL INFARCTION. THE UPPER REFERENCE LIMIT (URL) OF TROPONIN, DEFINED THE 99TH PERCENTILE OF cTnI DISTRIBUTION IN A REFERENCE POPULATION, HAS BEEN CONFIRMED THE DECISION THRESHOLD FOR NE DIAGNOSIS. Performed By: #### H STROPN #### [facility] [address] [address] [address] 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 COMPARISON: September 21, 2021 ACCESSION NUMBER(S): [id number] ORDERING CLINICIAN: ANDREA HAWTHORNE FINDINGS: Possible new 6 mm left upper lobe pulmonary nodule. Cardiomegaly with atherosclerotic aorta unchanged. IMPRESSION: Possible new 6 mm left upper lobe pulmonary nodule. CT thorax recommended given the known history of previous malignancy. Electronic result notification sent on this study at the time of final interpretation 5:26 p.m. September 21, 2022 Electronically signed by: BERYL ANTUNEZ MD [facility] Established Visit (Otolaryng ology)on 09-20-2022 Established [...] year Pain Scale0/10 Height5 ft 7 in Uikhfr545 lb 9 oz BMI Qoptowhphk57.8 kg/m2 BSA Calculated1.77 Physical Exam On examination the oral cavity and oropharynx are within normal limits. He does have some surgical changes of the anterior tongue on the (more content not included)... [facility] 09-20-2022 XR Chest 2 Views Please click on the link to view the study images Normal [facility] Work Phone: TSHon 09-20-2022 TSH Qn 1.28 m[IU]/L Normal 0.44 - 3.98 [facility] Comment on above: Result Comment: TSH testing is performed using different testing methodology at [facility] than at other system hospitals. Direct result comparisons should only be made within the same method. Performed By: #### T SH2 #### [address] [id number] TSH - Thyroid Stimulating Ho rmone, Serumon 09-20-2022 TSH Qn 1.28 m[IU]/L See Below [facility] Work Phone: Comment on above: Reference Range: 0.4 4 - 3.98 TSH testing is performed using different testing methodology at [facility] than at other [facility] hospitals. Direct result comparisons should only be made within the same method. Tobacco Screening.on 022 Adult depression screening assessment No [facility]-Otolaryngol o[facility] Work Phone: Fall risk assessment b) One or more falls in the last year [facility]-Otolaryngol ogy-[facility] Work Phone: Tobacco use status CPHS b) No [facility]-Otolaryngol [facility] Work Phone: H PYLORI TISSUEon 12-31-2021 H PYL TISSUE, UREASE Negative Normal NEGATIVE [facility] Comment on above: Performed By: #### H PYLT #### [facility] [address] [address] [address] Berta Thakkar POINT OF CARE GLUCOSEon Glucose [Mass/Vol] 149 mg/dL Critically high 74-106 [facility] Comment on above: Performed By: #### I NFLUAB #### [facility] [address] [address] [address] Berta Thakkar Complete Blood Counton 12-21 Erythrocyte distribution width (RBC) [Ratio] 18.2 % High 11.0-15.0 [facility] Comment on above: Performed By: #### C BC #### [facility] [address], [place] [id number] Hematocrit (Bld) [Volume fraction] 31.4 % Low 38.5-50.0 [facility] Comment on above: Performed By: #### C BC #### [facility] [address], [place] [id number] Hemoglobin (Bld) [Mass/Vol] 9.5 g/dL Low 13.0-17.1 [facility] Comment on above: Performed By: #### C BC #### [facility] [address], [place] [id number] MCH (RBC) [Entitic mass] 26.3 pg Low 27.0-33.0 [facility] Comment on above: Performed By: #### C BC #### [facility] [address], [place] [id number] MCHC (RBC) [Mass/Vol] 30.3 g/dL Low 32.0-36.0 [facility] Comment on above: Performed By: #### C BC #### [facility] [address], [place] [id number] MCV (RBC) [Entitic vol] 87 fL Normal 80-100 [facility] Comment on above: Performed By: #### C BC #### [facility] [address], [place] [id number] Platelet mean volume (Bld) [Entitic vol] 8.50 fL Normal 7.50-12.50 [facility] Comment on above: Performed By: #### C BC #### [facility] [address], [place] [id number] Platelets (Bld) [#/Vol] 180 10*3/uL Normal 140-400 [facility] Comment on above: Performed By: #### C BC #### [facility] [address], [place] [id number] RBC (Bld) [#/Vol] 3.61 10*6/uL Low 4.20-5.80 [facility] Specialist Comment on above: Performed By: #### C BC #### [facility] [address], [place] [id number] RDW-SD 57.6 fL High 37.0-50.0 [facility] [place] [facility] Comment on above: Performed By: #### C BC #### [facility] [address], [place] [id number] WBC (Bld) [#/Vol] 4.0 10*3/uL Normal 3.8-11.0 [facility] Certified Medical Coder Comment on above: Performed By: #### C BC #### [facility] [address], [place] [id number] Radiologyon 09-21-2021 XR Chest 2 Views Please click on the link to view the study images Normal [facility]tol[facility]ol [facility] Work Phone: XR Chest 2 Views Normal MG-Otola ryngol ogy-[place] Work Phone: TSH - Thyroid Stimulating Ho yessica, Serumon 09-21-2021 TSH Qn 3.49 m[IU]/L See Below MG-Otolaryng ol ogy-[facility] Work Phone: Comment on above: Reference Range: 0.4 4 - 3.98 TSH testing is performed using different testing methodology at [facility] than at other [facility]. Direct result comparisons should only be made within the same method. Tobacco Screening.on Fall risk assessment b) One or more falls in the last year [facility]-Otolaryngol o[facility] Work Phone: Tobacco use status CPHS b) No [facility]-Otolaryngol o[facility] Work Phone: Tobacco Screening.on Fall risk assessment a) No falls within the last year [facility]-Otolaryngol o[facility] Work Phone: Tobacco use status CPHS b) No [facility]Otolaryngol [facility] Work Phone: ANES POSTPROC EVALon ANES POSTPROC EVAL HNO ID: [id number] Author: Umesh Mitchell Service: Anesthesiology Author Type: Physician Type: Anesthesia Postprocedure Evaluation Filed: 01/04/2021 10:21 AM Note Text: POST ANESTHESIA EVALUATION NOTE : 1950 Procedure Summary Date: 01/04/21 Room / Location: [address] Anesthesia Start: 924 Anesthesia Stop: 949 [...] January 04, 2021 TIME: 10:21 AM CSN: [id number] [facility] ANES PRE-OPon 01-04-2021 ANES PRE-OP HNO ID: [id number] Author: Umesh Mitchell Service: Anesthesiology Author Type: [...] January 04, 2021 TIME: 8:48 AM CSN: [id number] Normal [facility] OPERATIVE NOon 01-04-2021 OPERATIVE NO HNO ID: [id number] Author: Jerri Valencia V Service: Ophthalmology Author Type: Physician Type: Operative Report Filed: 01/04/2021 9:50 AM Note Text: OPERATIVE REPORT DATE OF SERVICE: January 04, 2021 PRIMARY SURGEONS: Jerri Valencia MD LEARNING STRATEGIST: None Procedure(s) (LRB): PHACOEMULSIFICATION CATARACT IMPLANT INTRAOCULAR [...] corneal incision was created temporally with a [place] blade then a 2.4 mm keratome. The [...] AM - Comanage with Dr Johanne Olivares; [facility] P[facility] #1 Jerri VALENCIA MD Normal [facility] Other 07-23-2019 XR Chest 2 views Please click on the link to view the study images Normal MG-Otolaryngol [employer] Work Phone: XR Chest 2 views Interpreted by: PIPE JAMES07/24/19 07:51MRN: [id number] Name: ROXANN RM JR STUDY:TH CHEST 2 [...] by: PIPE JAMES 07/24/19 07:51 Normal [facility]tol[facility]ol [facility] Work Phone: TSH - Thyroid Stimulating Ho rmone, Serumon 07-23-2019 TSH Qn 3.90 {mIU/L} See Below MG-Otolaryng ol ogy-[facility] Work Phone: Comment on above: Reference Range: 0.4 4 - 3.98 TSH testing is performed using different testing methodology at [facility] than at other [facility]. Direct result comparisons should only be made within the same method.. Patients receiving more than 5 mg/day of biotin may have interference in test results. A sample should be taken no sooner than eight hours after previous dose. Contact [phone] for additional information. Social History Date Type Detail Facility Start: 09-19-2023 Drinks beer Drinks beer MG-Otolary ngology-[facility] Work Phone: Start: 09-19-2023 Sex Assigned At [employer] Other Start: 09-19-2023 Tobacco use and exposure Smokeless tobacco non-user [facility] Work Phone: Start: 09-09-2023 End: 09-19-2023 Exposure to SARS-CoV-2 (event) Not sure [facility] Start: 06-16-2022 End: 06-16-2022 Tobacco smoking status PAIS Never smoked tobacco (finding) [facility] Start: 1950 Sex Assigned At Male [facility] Start: 1950 Sex Assigned At Not on file [facility] Tobacco smoking status PAIS Tobacco smoking consumption unknown [facility] NEGATED: Highlighted row - - EU-Mkjltajjfaawib[facility] Work Phone: Vital Signs Date Time Vital Sign Value Performing Clinician Facility 09-19-2023 16:16-0400 Body height 170.2 cm Apollo Lopes MD Work Phone: [facility] 09-19-2023 16:16-0400 Body mass index (BMI) [Ratio] 22.24 kg/m2 Apollo Lopes MD Work Phone: [facility] 09-19-2023 16:16-0400 Body weight 64.41 kg Apollo Lopes MD Work Phone: [facility] 12-28-2022 21:00-0500 Diastolic blood pressure 67 mm[Hg] Et3 [employer] 12-28-2022 21:00-0500 Heart rate 68 /min Et3 [employer] 12-28-2022 21:00-0500 Respiratory rate 18 /min Et3 [facility] [employer] 12-28-2022 21:00-0500 SaO2% (BldA) [Mass fraction] 76 % [facility] [employer] 12-28-2022 21:00-0500 Systolic blood pressure 112 mm[Hg] Et3 [facility] [employer] 09-20-2022 15:19-0400 0 1 [employer] Work Phone: YM-Luzsdfgpmkfyro-Jj [place] Work Phone: Comment on above: [employer] 09-20-2022 15:18-0400 Body height 170.18 cm [employer] Work Phone: HX-Zxmfvnnrmcyfed-Ry [place] Work Phone: 09-20-2022 15:18-0400 Body mass index (BMI) [Ratio] 22.8 kg/m2 [employer] Work Phone: IW-Naqyqleclgydgi-Oy [place] Work Phone: 09-20-2022 15:18-0400 Body surface area Derived from formula 1.77 m2 [employer] Work Phone: FW-Aprdqkvxijhupv-Hv [place] Work Phone: 09-20-2022 15:18-0400 Body weight 66.03 kg [employer] Work Phone: AX-Ryrfkenpsrklcp-Tc [place] Work Phone: 03-31-2022 10:30-0400 Body height 170.18 cm Luis Moe Other [employer] Other 05-05-2022 10:30-0400 Body mass index (BMI) [Ratio] 22.71 kg/m2 Luis Moe Other [employer] Other 03-31-2022 10:30-0400 Body weight 65.77 kg Luis Moe Other [employer] Other 09-21-2021 13:36-0400 Body height 170.18 cm [employer] Work Phone: OH-Mlhylrilunmktj-Bh [place] Work Phone: 09-21-2021 13:36-0400 Body mass index (BMI) [Ratio] 23.95 kg/m2 [employer] Work Phone: TP-Cojpqgzyilvwar-Au [place] Work Phone: 09-21-2021 13:36-0400 Body surface area Derived from formula 1.8 m2 [employer]antha Work Phone: KP-Xcydsqgiuznmfu-Yk [place] Work Phone: 09-21-2021 13:36-0400 Body temperature 96.8 [degF] [employer] Work Phone: NI-Whelzhammwwiqw-Jo [place] Work Phone: 09-21-2021 13:36-0400 Body weight 69.36 kg [employer] Gonzalez Samantha Work Phone: UD-Qkpssqeslofzap-Qy [place] Work Phone: 07-06-2021 15:59-0400 Body height 170.18 cm [employer] [place] Work Phone: FD-Gwbqtdilsoqqyn-De [place] Work Phone: 07-06-2021 15:59-0400 Body mass index (BMI) [Ratio] 23.81 kg/m2 [employer] Work Phone: RU-Sbaaeqexvvervb-Ql [place] Work Phone: 07-06-2021 15:59-0400 Body surface area Derived from formula 1.8 m2 [employer] Gonzalez [place] Work Phone: BT-Kdtvvomlfbiadd-Na stZentyal Work Phone: 07-06-2021 15:59-0400 Body temperature 97.3 [degF] [employer] Work Phone: HX-Fjgrhurmpxjiud-Ki stZentyal Work Phone: 07-06-2021 15:59-0400 Body weight 68.95 kg [employer] Gonzalez [employer] Work Phone: MZ-Djqbswmhdphjfs-Nk stZentyal Work Phone: Functional Status Date Assessment Result Facility NEGATED: Highlighted row Functional performance Functional status health issues are not documented Disease SU-Nhsllnysksbkbb-L estZentyal Work Phone: Mental Status Date Assessment Result Facility NEGATED: Highlighted row Cognitive function [Interpretation] Cognitive status health issues are not documented Disease UG-Uecitbpbytkutj-Y [place] Work Phone: Clinical Notes 06-02-2014 to [...] any mucosal lesions. documented in this encounter [facility] Work Phone: 12-28-2022 History of Present illness Narrative Images from the original note were not included. EMERGENCY TRIAGE, TREAT AND TRANSPORT (ET3) DOCUMENTATION OF TELEHEALTH VISIT Date / Time: 12/28/20222099 Name: Roxann Rm : 1950 SSN: (Not on file) EMS Agency: [facility] [x] Verbal consent obtained [] Implied [...] Em Staples MD documented in this encounter [facility] 03-31-2022 Evaluation note Encounter Date Diagnosis Assessment [...] any further surveillance of his carotid arteries. [employer] Other 02-04-2022 NoteOPERATIVE NOTE PREOPERATIVE DIAGNOSIS: Anemia. POSTOPERATIVE DIAGNOSIS: Gastritis, sigmoid diverticulosis. PROCEDURE PERFORMED: EGD with biopsy x1 from the antrum of the stomach, colonoscopy. SURGEON: Donya Paredes M.D. ANESTHESIA: Monitored anesthesia care. DISPOSITION: [facility] fair condition. PROCEDURE: Patient was brought [...] have a repeat colonoscopy in five years. [facility] Signed and Approved by: DR DONYA PAREDES . 01/08/2022 14:40:00[facility]02-04-2022 NoteOPERATIVE NOTE PREOPERATIVE DIAGNOSIS: Anemia. POSTOPERATIVE DIAGNOSIS: Gastritis, sigmoid diverticulosis. PROCEDURE PERFORMED: EGD with biopsy x1 from the antrum of the stomach, colonoscopy. SURGEON: Donya Paredes M.D. ANESTHESIA: Monitored anesthesia care. DISPOSITION: To [facility] in fair condition. PROCEDURE: Patient was brought [...] have a repeat colonoscopy in five years.[id number] NoteHNO ID: [id number] Author: Dyaday Priest (Od) Hong Service: ? Author Type: COPPER TAPPER Type: Progress Notes Filed: 01/05/2021 10:27 AM [...] Dayday Hong, OD January 05, 2021 10:24 [facility]01-26-2021 NoteHNO ID: [id number] Author: Jerri Valencia V Service: ? Author [...] Jerri VALENCIA MD December 22, 2020 9:36 [facility]07-07-2014 History of Present illness NarrativeThis patient had [...] morning. He does have some slight throat soreness.XQ-Gfdqwkrdssqwkd-Phighxqk Work Phone: 1(153) 520-905307-07-2014 History of Present illness NarrativeThileni patient had [...] was also in August 2020 and was negative.[facility] Work Phone: 1(910) 315-828907-07-2014 History of Present illness NarrativeThileni patient had [...] was also in August 2021 and was negative.OM-Lpiesuplqogrbu-Vdaahjzn Work Phone: Evaluation noteNo assessment information available [facility] Work Phone: Evaluation note* Diagnosis Lightheaded- Primary Dizziness and giddiness Hypoxia Hypoxemia [facility] 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)- Primary 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, part unspecified Acquired hypothyroidism Unspecified hypothyroidism Oropharyngeal dysphagia Dysphagia, oropharyngeal phase documented in this encounter [facility] Work Phone: History general Narrative - Reported* Type Description Date Medical History DM 2 Medical History Hx of skin cancer Medical History hyperlipidemia Medical History hypertension Medical History tongue cancer Surgical History Right knee arthroscopy Surgical History rotator cuff repair Surgical History tongue resection [employer] Other Family History No Family History Records [...] section and content) DATE CREATED AUTHOR 12/21/2021 [facility] DATE CREATED AUTHOR AUTHOR'S ORGANIZ ATCHRIS 12/22/2021 [facility] dical Specialist DATE CREATED AUTHOR AUTHOR'S ORGANIZ ATION 09/21/2022 [employer] DATE CREATED AUTHOR AUTHOR'S ORGANIZ ATION 10/11/2022 [facility] DATE CREATED AUTHOR AUTHOR'S ORGANIZ ATION 12/29/2022 [facility] DATE CREATED AUTHOR AUTHOR'S ORGANIZ ATION 01/22/2023 [facility] DATE CREATED AUTHOR AUTHOR'S ORGANIZ ATION 05/16/2024 [facility] DATE CREATED AUTHOR AUTHOR'S ORGANIZ ATION 05/18/2024 [facility] DATE CREATED AUTHOR AUTHOR'S ORGANIZ ATION 05/22/2024 [facility] dical Specialists EPIC REASON FOR VISIT (unrecogniz [...] Active Apollo Lopes MD Attending Provider Active Fisher Quahog Relationship Specialty Start Date End Date Neo Singh MD [address] [facility] [address] [place] [id number] PCP - General 05/15/14 Irina Wesley MD [address] [facility] [address] [place] [address] Referring Physician Otolaryngology 09/18/23 Goals [...] BE BASED ON THE PRIMARY CLINICAL RECORDS. [facility]. provides no warranty or guarantee of the accuracy or completeness of information in this document.
[2024-05-22] MEDS: 0.9 % SODIUM CHLORIDE 1,000 ML 125 ML IV (23:45)
[2024-05-23] VITALS (19 sets, daily range): BP systolic 127–172; BP diastolic 72–99; PULSE 65–95; TEMP 36.7–36.9; O2SAT 90–96
[2024-05-23] MEDS: PIPERACILLIN SODIUM/TAZOBACTAM 3.375 GM in 0.9 % SODIUM CHLORIDE 50 ML IV ×3 (04:58→22:14)
[2024-05-23 05:45] LABS: Basophils Percent Auto 0.3 % (0.2-2.0); Eosinophils Absolute Auto 0.1 10^3/uL (0.0-0.7); Eosinophils Percent Auto 2.8 % (0.9-7.0); Hematocrit 29.3 % (42.0-54.0); Hemoglobin 8.7 g/dL (14.0-18.0); Immature Granulocytes Abs Auto 0.01 10^3/uL (0.00-0.03); Immature Granulocytes Pct Auto 0.3 % (0.0-0.5); Lymphocytes Absolute Auto 0.6 10^3/uL (1.2-3.8); Lymphocytes Percent Auto 15.8 % (20.5-60.0); Mean Corpuscular HGB Conc 29.7 g/dL (29.9-35.2); Mean Corpuscular Hemoglobin 28.3 pg (25.9-34.0); Mean Corpuscular Volume 95.4 fL (80.0-94.0); Mean Platelet Volume 9.4 fL (9.5-13.5); Monocytes Absolute Auto 0.3 10^3/uL (0.3-0.8); Monocytes Percent Auto 8.5 % (1.7-12.0); Neutrophils Absolute Auto 2.9 10^3/uL (1.4-6.5); Neutrophils Percent Auto 72.3 % (43.0-75.0); Platelet Count 236 10^3/uL (150-450); Red Blood Count 3.07 10^6/uL (4.70-6.10); Red Cell Distribution Width 15.8 % (11.0-15.0)
[2024-05-23 06:12] LABS: Alanine Aminotransferase 28 U/L (16-63); Albumin Globulin Ratio 0.5; Albumin Level 2.3 g/dL (3.4-5.0); Alkaline Phosphatase 223 U/L (46-116); Anion Gap 11.9; Aspartate Amino Transferase 54 U/L (15-37); BUN Creatinine Ratio 15.5; Bilirubin Total 0.4 mg/dL (0.2-1.0); Calcium 8.4 mg/dL (8.5-10.1); Chloride 102 mmol/L (98-107); Estimated GFR (African America >60 (>=60); Estimated GFR (Non-African Ame >60 (>=60); Globulin 4.2 g/dL; Glucose 117 mg/dL (74-106); Potassium 3.9 mmol/L (3.5-5.1); Sodium 139 mmol/L (136-145); Total Protein 6.5 g/dL (6.4-8.2)
[2024-05-23] MEDS: 0.9 % SODIUM CHLORIDE 1,000 ML 125 ML IV ×2 (08:05→17:42)
[2024-05-23] MEDS: ENOXAPARIN SODIUM 40 MG/0.4 ML SYRINGE SUBQ (08:05)
--- NOTE | 2024-05-23 10:38 | XR_ITS ---
The [address] [address] Patient Name: ROXANN DELAROSA MRN: [id number] date: 1950 Sex: M Assigned Patient Location: [place] Current Patient Location: [place] Accession/Order Number: [id number] Exam Date: 05/23/2024 12:25 Report Date: 05/23/2024 15:02 At the request of: ELOISE PAGE Procedure: XR acute abdomen series EXAMINATION: XR acute abdomen series HISTORY: r/o complete bowel obstruction COMPARISON: 07/27/2023, CT 05/22/2024 FINDINGS: LUNGS: Bibasilar infiltrates right greater than left, increased from the prior exam. Aortic atherosclerosis MEDIASTINUM: No abnormal widening. BOWEL GAS PATTERN: Scattered air-fluid levels. Air is seen extending down to the rectum. FREE AIR: None. CALCIFICATIONS: None significant. BONES: No fracture or visible bone lesion. OTHER: Negative. XR/XR acute abdomen series IMPRESSION: Right basilar infiltrate, atelectasis favored Air-fluid levels with an overall nonobstructive bowel gas pattern Electronically authenticated by: LUCRECIA DRAKE Date: 05/23/2024 15:02
--- NOTE | 2024-05-23 10:39 | SWNOTE1 ---
ROBSON met with pt to discuss dc needs. Pt lives at home with his . Pt uses a walker at home and he does have home health coming in, but not sure name of company. Pt was at [facility] not long ago. He voiced he was not there long, maybe a week. When talking with pt, ROBSON is not sure if he signed himself out or if his insurance cut him. Pt's goal is to return home at discharge with . ROBSON to check therapy notes. ROBSON reached out to Vaishali at [facility] to see what company pt went home with. She emailed ROBSON back and pt has [facility] [employer] [facility] [employer]. Updates sent to [facility] including face sheet, ER note, and H&P.
--- NOTE | 2024-05-23 10:45 | SWNOTE1 ---
Important Message from Medicare reviewed and discussed with patient. Pt. verbalized understanding and signed the form. Original given to patient and copy placed in patient?s chart.
--- NOTE | 2024-05-23 11:16 | CM.NOTE ---
Rounds made with Dr. Clarke. Dr. Clarke reviewed labs & plan of care with Hola. Plan is IV Antibiotics, Wean O2. Hola verbalized understanding. No discharge planned today
--- NOTE | 2024-05-23 12:21 | P.HP_ITS ---
<Statement entered by Lakhwinder Clarke MD - 05/23/24 23:04> This documentation has been reviewed and approved. Pt seen and examined. 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 Workup in the ED revealed hypoxia on arrival (88% on room air), macrocytic anemia (Hgb 8.7), lactic acidosis (2.8), and elevated procalcitonin (0.54). A CT of the chest revealed no PE or dissection, but did note a right mid and lower opacity which is suspicious for aspiration pneumonia, and possible small left lower lobe infiltrate as well. A CT of the abdomen pelvis confirmed previously seen colonic mass with metastatic disease to the liver, lungs, and abdominal lymph nodes, with a new foci noted in the right femoral head. Mechanical obstruction of the colon from his mass is suspected due to a dilated small bowel and cecum. He was admitted last night to the hospitalist service as an inpatient for multifocal pneumonia suspected due to aspiration, acute respirat ory failure, dehydration, and suspected colonic obstruction. At the time of my exam the patient is awake and alert and resting in bed. He denies any significant abdominal pain but does note recurrent vomiting that started 2 days ago. He denies diarrhea, fever or chills, or any obvious aspiration event. He reports that he was following his dysphagia diet at home. His last bowel movement was believed to be on Monday (3 days ago). Of note, pathology report from biopsies performed during endoscopy/colonoscopy on 05/10/2024 is reviewed in the chart. Candidal esophagitis is noted, along with l ikely colon cancer with high-grade features of an adenomatous polyp. We cannot find any evidence that the patient was treated after discharge on 05/10/2024 for his esophageal candidiasis and we will initiate treatment today with a planned 14-day course. Opioid HPI Opioid Management Most Recent Pain and Opioid Data: Last Pain Scale 3 05/10/24 03:56 Last Pain Intensity 0 05/06/24 10:22 Last Pain Assessment 05/23/24 12:26 Last ORT Total Score 0 05/22/24 23:07 Last ORT Risk Category Low Risk 05/22/24 23:07 Review of Systems ROS Status of ROS 10 or more systems reviewed and unremark able except as noted in history and below [facility] Medical History (Updated 05/23/24 @ 13:17 by Manuela Lamb NP) Esophagitis determined by endoscopy ?K20.90 - Esophagitis, unspecified without bleeding (ICD-10) Mass of colon ?K63.89 - Other specified diseases of intestine (ICD-10) Metastatic colon cancer to liver ?C18.9 - Malignant neoplasm of colon, unspecified (ICD-10) ?C78.7 - Secondary malignant neoplasm of liver and intrahepatic bile duct (IC D-10) Metastatic cancer to lung of unknown cell type ?C78.00 - Secondary malignant neoplasm of unspecified lung (ICD-10) Anemia due to blood loss, chronic ?D50.0 - Iron deficiency anemia secondary to blood loss (chronic) (ICD-10) Moderate protein-calorie malnutrition ?E44.0 - Moderate protein-calorie malnutrition (ICD-10) Dysphagia ?R13.10 - Dysphagia, unspecified (ICD-10) History of tongue cancer ?Z85.810 - Personal history of malignant neoplasm of tongue (ICD-10) Type 2 diabetes mellitus with hyperglycemia ?E11.65 - Type 2 diabetes mellitus with hyperglycemia (ICD-10) PVD (peripheral vascular disease) ?I73.9 - Peripheral vascular disease, unspecified (ICD-10) Benign essential hypertension ?I10 - Essential (primary) hypertension (ICD-10) Transaminitis ?R74.01 - Elevation of levels of liver transaminase levels (ICD-10) Anemia ?D64.9 - Anemia, unspecified (ICD-10) Asthma ?J45.909 - Unspecified asthma, uncomplicated (ICD-10) Hyperlipidemia ?E78.5 - Hyperlipidemia, unspecified (ICD-10) Hypothyroidism ?E03.9 - Hypothyroidism, unspecified (ICD-10) Intraparenchymal hemorrhage of brain ?I61.9 - Nontraumatic intracerebral hemorrhage, unspecified (ICD-10) Family History (Updated 05/22/24 @ 23:17 by Cate Boles RN) Mother Family history of cancer Father Family history of cancer Sister Family history of diabetes mellitus Social History (Updated 05/22/24 @ 23:18 by Cate Boles RN) Within the past year, how often did you have a drink containing alcohol: never Score interpretation: A score less than 4 is consistent with normal alcohol consumption. Smoking status: Never smoker Non-prescribed substance use: denies use Highest level of school completed/degree received: decline to answer Are you now , , , , never or living with a partner: Do you think of yourself as: straight/heterosexual Gender Identity: male Meds Home Medications and Allergies Home Medications ?Medication ?Instructions ?Recorded ?Confirmed ?Type aspirin 81 mg chewable tablet 1 tab PO .qd 05/06/24 05/06/24 History atorvastatin 40 mg tablet 40 mg PO .qd 05/06/24 05/06/24 History fluticasone fur. 100 mcg-umeclid 1 inh inhalation Q24H 05/06/24 05/06/24 History 62.5 mcg-vilant 25 mcg inhalat.powder (Trelegy Ellipta) levothyroxine 75 mcg tablet 75 mcg PO .qd 05/06/24 05/06/24 History amoxicillin 875 mg-potassium 1 tab PO Q12H 14 days #28 tabs 05/10/24 Rx clavulanate 125 mg tablet omeprazole 40 mg capsule,delayed 40 mg PO DAILY #1 cap 05/10/24 Rx release Allergies Allergy/AdvReac Type Severity Reaction Status Date / Time latex Allergy Intermediate Verified 05/22/24 18:41 Exam Constitutional Vital Signs, click to edit/add: Last Vital Signs Temp 98.3 F 05/23/24 08:08 Pulse 68 05/23/24 12:00 Resp 18 05/23/24 08:08 BP 127/77 05/23/24 08:08 Pulse Ox 96 05/23/24 10:08 O2 Del Method Nasal Cannula 05/23/24 10:08 O2 Flow Rate 1 05/23/24 10:08 Common normals: no apparent distress, oriented x3 and alert General appearance: cooperative Orientation/consciousness: Yes awake HENMT Common normals: normocephalic, head/scalp atraumatic, hearing grossly normal bilaterally and external nose normal Mouth: oral and palatal mucosa abnormal (Dry) and tongue abnormal (Hx of partial resection) Teeth and gingiva: edentulous Eye Common normals: PERRL, EOMs intact bilaterally, conjunctivae normal and no scleral icterus Alignment: alignment normal Eyelid: eyelids normal Neck & C-Spine Common normals: full ROM, supple and no JVD Chest Common normals: inspection of chest normal Chest: symmetrical chest wall rise Respiratory Common normals: normal respiratory effort, no retractions and no use of accessory muscles Effort & inspection: able to speak in complete sentences Cardio Common normals: no JVD, regular rate, regular rhythm, S1 normal heart sound, S2 normal heart sound, no gallops, no clicks, no murmurs, no rub and peripheral pulses 2+ throughout GI Common normals: Normal to inspection, nondistended, normoactive bowel sounds present, soft to palpation, non-tender, no hepatosplenomegaly, no masses and no bruits Bladder/kidney exam: bladder normal to palpation Back & Pelvis Common normals: thoracic and lumbar spine normal to inspection Extremity Common normals: normal capillary refill and no pedal edema General: normal exam except as noted; no clubbing and no cyanosis Neuro [place] Coma Scale: GCS not evaluated Common normals: CN's II-XII intact bilaterally, moves all extremities, no focal motor deficits and no sensory deficits noted Speech: speech normal Motor exam: strength 5/5 throughout Psych Common normals: mental status grossly normal, thought process normal, affect normal and activity/motor behavior normal Results Labs Labs: Short CBC 05/22/24 05/23/24 Range/Units 18:49 05:12 WBC 6.0 4.0 (4.0-11.0) 10^3/uL Hgb 9.9 L 8.7 L (14.0-18.0) g/dL Hct 32.8 L 29.3 L (42.0-54.0) % Plt Count 266 236 (150-450) 10^3/uL BMP 05/22/24 05/23/24 18:49 05:12 Sodium 135 L 139 Potassium 4.3 3.9 Chloride 97 L 102 Carbon Dioxide 31.6 29.0 BUN 21.0 H 16.0 Creatinine 1.37 H 1.03 Glucose 143 H 117 H Calcium 10.0 8.4 L Liver Function 05/22/24 05/23/24 Range/Units 18:49 05:12 Total Bilirubin 0.4 0.4 (0.2-1.0) mg/dL AST 47 H 54 H (15-37) U/L ALT 35 28 (16-63) U/L Alkaline Phosphatase 283 H 223 H (46-116) U/L Albumin 2.9 L 2.3 L (3.4-5.0) g/dL ABG ABG results: 05/22/24 18:55 VBG pH 7.425 VBG pCO2 47.5 Pulse Oximetry Attestation: I have reviewed the pertinent pulse oximetry results. Imaging CTA Chest/CT Abdomen and Pelvis: Attestation: I have reviewed the pertinent imaging results. Radiologist's impression: IMPRESSION: 1. No pulmonary embolism. 2. Airspace opacities in the right mid and bilateral lower lung likely resents pneumonia. 3. Numerous bilateral pulmonary metastases are not significantly changed. 4. Mediastinal no metastases are not substantially changed. 5. Numerous hepatic metastases are not substantially changed. 6. Probable primary colon cancer in the ascending colon. 7. 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 8. Possible lytic lesion in the right femoral head. 9. Dilated small bowel and cecum likely from mechanical obstruction at the ascending colonic lesion. Assessment and Plan Assessment and Plan (1) Aspiration pneumonia: Assessment and Plan: Acute * Adm inpatient * We expect greater than a 2 midnight stay for medically necessary hospital care including: IVPB antibiotics, IVFs, O2 supplementation, close nursing monitoring for emesis/aspiration/hypoxia, specialty surgical care * Per CTA chest, RML and RLL infiltrate suspicious for aspiration, possible small LLL infiltrate as well * IVPB Zosyn and Vanco for broad gram neg and pos coverage in an immunocompro mised pt * Sputum culture if able to obtain to direct deescalation of ABX * O2 supplementation as needed to keep sats above 90% * NS IVF at 125/hr * BC x 2 pending * Daily CBC, CMP, PCT (2) Acute respiratory failure with hypoxia: Assessment and Plan: Acute * 2/2 multifocal aspiration pneumonia * O2 sats 88% on RA on arrival to the ED * Currently requiring 1-2 liters to maintain O2 sats * Titrate supplementation to keep sats above 90% * Hemoptysis reported - sputum pending (3) Bowel obstruction: Assessment and Plan: Acute * Per CT abdomen/pelvis, large colonic mass likely causing complete obstruction now w/ dilated sm bowel and cecum * NPO * Consider NGT if vomiting recurs - currently denies N/V * IVF as above for hydration while NPO * Repeat Acute abdomen series imaging to confirm complete obstruction if possible * C/S Surgery for possible diverting ileostomy once the pt is medically optimized (4) Dehydration: Assessment and Plan: Acute * 2/2 persistent vomiting and overall deconditioned state w/ poor oral intake and dysphagia * NS IVF as above * Improving on labs this morning * CMP daily (5) Lactic acidosis: Assessment and Plan: Acute * 2/2 acute infection and dehydration * Improved but not resolved w/ IVF * Repeat lactic acid in AM (6) Esophageal candidiasis: Assessment and Plan: Acute * Found via endoscopy w/ biopsy on 05/10/24 * Pathology resulted after the pt was discharged and it does not appear that treatment was initiated at the SNF * Start Diflucan IVPB 400 mg daily x 14 days (7) Macrocytic anemia: Assessment and Plan: Chronic * Stable since last admission * Check Vit B12 level * CBC daily to monitor (8) Metastatic colon cancer to liver: Assessment and Plan: Chronic * Metastases to liver, lung, abd lymph nodes, and now bones * Following outpatient with Dr Harper, but has not had an appointment yet since discharge on 05/10/24 * Defer to outpatient management with chemotherapy - Palliative care only (not curative) per Dr Harper's note. (9) Metastatic cancer to lung of unknown cell type: Assessment and Plan: Chronic * See colon CA above (10) Dysphagia: Assessment and Plan: Chronic * 2/2 to hx of tongue CA s/p partial tongue resection and overall weakness * Diagnosed by AUTOMOTIVE LEASING SALES REPRESENTATIVE on last admission - pureed food w/ nectar thick liquids recommended * Pt reports he was following this diet at home prior to readmission (11) Moderate protein-calorie malnutrition: Assessment and Plan: Chronic * Pt NPO for now * Consider TPN pending clinical course (12) Type 2 diabetes mellitus with hyperglycemia: Assessment and Plan: Chronic * ACHS glucometer checks * Med dose SSI for glucose correction (13) Asthma: Assessment and Plan: Chronic * Substitute duoneb prn treatments and scheduled pulmicort nebs for home Trelegy Ellipta
[2024-05-23 14:37] LABS: Bilirubin Urine NEGATIVE (NEGATIVE); Blood Urine NEGATIVE (NEGATIVE); Clarity Urine CLEAR (CLEAR); Color Urine LT. YELLOW (YELLOW); Glucose Urine UA NEGATIVE (NEGATIVE); Ketones Urine NEGATIVE (NEGATIVE); Leukocyte Esterase Urine NEGATIVE (NEGATIVE); Nitrite Urine NEGATIVE (NEGATIVE); Protein Urine NEGATIVE (NEG/TRACE); Urobilinogen Urine 0.2 EU/dL (0.2-1.0)
[2024-05-23 14:56] LABS: Urine Microscopic Indicated NO
--- NOTE | 2024-05-23 15:12 | SWNOTE1 ---
Updates sent to [facility].
[2024-05-23 17:22] LABS: Glucometer 102 mg/dL (74-106)
[2024-05-23] MEDS: FLUCONAZOLE IN NACL,ISO-OSM 200 MG/100 ML PIGGYBACK 100 MG IV ×2 (17:42)
[2024-05-23] MEDS: PANTOPRAZOLE SODIUM 40 MG VIAL IV (17:42)
[2024-05-23 20:29] LABS: Glucometer 87 mg/dL (74-106)
[2024-05-23] MEDS: IPRATROPIUM/ALBUTEROL SULFATE 3 ML AMPUL.NEB IH (20:46)
[2024-05-23] MEDS: BUDESONIDE 0.5 MG/2 ML AMPULE NEB IH (20:46)
[2024-05-23] MEDS: VANCOMYCIN HCL 750 MG in 0.9 % SODIUM CHLORIDE 250 ML 250 MG IV (21:09)
[2024-05-24] VITALS (22 sets, daily range): BP systolic 113–171; BP diastolic 66–90; PULSE 67–97; TEMP 36.6–36.9; O2SAT 91–95
[2024-05-24] MEDS: PIPERACILLIN SODIUM/TAZOBACTAM 3.375 GM in 0.9 % SODIUM CHLORIDE 50 ML IV ×3 (04:43→21:34)
[2024-05-24] MEDS: 0.9 % SODIUM CHLORIDE 1,000 ML 125 ML IV (04:44)
[2024-05-24] MEDS: PANTOPRAZOLE SODIUM 40 MG VIAL IV ×2 (04:52→16:34)
[2024-05-24 06:07] LABS: PROCALCITONIN 0.42 ng/mL (0.00-0.50)
[2024-05-24 08:13] LABS: Basophils Percent Auto 0.6 % (0.2-2.0); Eosinophils Absolute Auto 0.1 10^3/uL (0.0-0.7); Eosinophils Percent Auto 2.2 % (0.9-7.0); Hematocrit 30.5 % (42.0-54.0); Hemoglobin 9.4 g/dL (14.0-18.0); Immature Granulocytes Abs Auto 0.01 10^3/uL (0.00-0.03); Immature Granulocytes Pct Auto 0.3 % (0.0-0.5); Lymphocytes Absolute Auto 0.5 10^3/uL (1.2-3.8); Lymphocytes Percent Auto 16.3 % (20.5-60.0); Mean Corpuscular HGB Conc 30.8 g/dL (29.9-35.2); Mean Corpuscular Hemoglobin 28.6 pg (25.9-34.0); Mean Corpuscular Volume 92.7 fL (80.0-94.0); Mean Platelet Volume 9.6 fL (9.5-13.5); Monocytes Absolute Auto 0.4 10^3/uL (0.3-0.8); Neutrophils Absolute Auto 2.2 10^3/uL (1.4-6.5); Neutrophils Percent Auto 69.6 % (43.0-75.0); Platelet Count 252 10^3/uL (150-450); Red Blood Count 3.29 10^6/uL (4.70-6.10); Red Cell Distribution Width 15.6 % (11.0-15.0); White Blood Count 3.2 10^3/uL (4.0-11.0)
[2024-05-24 08:20] LABS: Alanine Aminotransferase 29 U/L (16-63); Albumin Globulin Ratio 0.6; Albumin Level 2.6 g/dL (3.4-5.0); Alkaline Phosphatase 236 U/L (46-116); Anion Gap 15.3; Aspartate Amino Transferase 55 U/L (15-37); BUN Creatinine Ratio 8.1; Bilirubin Total 0.4 mg/dL (0.2-1.0); Calcium 8.7 mg/dL (8.5-10.1); Carbon Dioxide 27.1 mmol/L (21.0-32.0); Chloride 101 mmol/L (98-107); Estimated GFR (African America >60 (>=60); Estimated GFR (Non-African Ame >60 (>=60); Globulin 4.6 g/dL; Glucose 106 mg/dL (74-106); Potassium 3.4 mmol/L (3.5-5.1); Sodium 140 mmol/L (136-145); Total Protein 7.2 g/dL (6.4-8.2)
[2024-05-24] MEDS: VANCOMYCIN HCL 750 MG in 0.9 % SODIUM CHLORIDE 250 ML 250 MG IV ×2 (09:22→21:34)
[2024-05-24] MEDS: ENOXAPARIN SODIUM 40 MG/0.4 ML SYRINGE SUBQ (09:23)
[2024-05-24] MEDS: IPRATROPIUM/ALBUTEROL SULFATE 3 ML AMPUL.NEB IH ×2 (09:42→20:38)
[2024-05-24] MEDS: BUDESONIDE 0.5 MG/2 ML AMPULE NEB IH ×2 (09:43→20:38)
--- NOTE | 2024-05-24 09:49 | PC.NURSE ---
PICC line call made 05/24/24 [id number] MM
--- NOTE | 2024-05-24 10:20 | PT.DAILY ---
Physical Therapy Daily Note PT Daily Note/Assess Start: 05/23/24 14:44 Freq: Status: Active Protocol: Document 05/24/24 09:25 FRANK (Rec: 05/24/24 10:20 FRANK [id number]) Physical Therapy Daily Note/Assessment Time In/Time Out Time In 09:25 Time Out 09:45 Subjective Subjective Patient reports feeling better today. Denies major complaints. Agrees to get up with PT. Therapeutic Activity Time Therapeutic Activity Minutes (minutes) 15 Therapeutic Activity Units 1 Therapeutic Activity Treatment Bed Mobility Ability Modified Independent Chair Transfer Ability Standby Assistance Therapeutic Activity Comments Gait 55' with RW SBA, assistance for IV follow. Patient demonstrates good balance and safety with bed mobility, transfers, and gait this AM. Total Physical Therapy Time Total Therapy Minutes 15 Total Physical Therapy Units 1 Summary Daily Note Summary Improved balance and gait distance this AM. Patient will benefit from PT at discharge to continue to work on strength and endurance.
--- NOTE | 2024-05-24 10:36 | DIETREC ---
TPN recommendation: Clinimix E 04/15 @ 75 mL/hour continuous to provide 1584 kcal, 90 gm PRO in 1800 mL TV.
--- NOTE | 2024-05-24 11:03 | P.PN_ITS ---
<Statement entered by Lakhwinder Clarke MD - 05/24/24 11:38> Patient was seen and evaluated at the bedside independently of nurse petitioner. Reviewed notes from nurse practitioner. Agree with input and findings. This documentation has been reviewed and approved. Progress Note: Subjective Subjective Interval history: 05/23/24 0890 The pt is resting in bed after just returning from the bathroom. He reports a large, firm stool this morning. He is hungry and wanting to eat. Unfortunat brandee, he was evaluated by SHIELD OPERATOR yesterday afternoon and significant dysphagia w/ aspiration is suspected. A modified barium swallow study has been ordered for today to further evaluate his swallowing and final diet recommendations from SHIELD OPERATOR are still pending. In the meantime, we will order a PICC line to be placed and the pt will be started on TPN as he has protein calorie malnutrition and is losing weight. A feeding tube placement may need to be considered pending the results of the barium swallow study. Otherwise, the pt is improving and was weaned off of O2 supplementation overnight. Reports feeling a little better today. Exam Constitutional Vital Signs, click to edit/add: Last Vital Signs Temp 98.4 F 05/24/24 08:02 Pulse 76 05/24/24 10:00 Resp 18 05/24/24 08:02 BP 149/82 H 05/24/24 08:02 Pulse Ox 95 05/24/24 09:48 O2 Del Method Room Air 05/24/24 09:48 O2 Flow Rate 1 05/23/24 10:08 Common normals: no apparent distress, oriented x3 and alert General appearance: cooperative Orientation/consciousness: Yes awake [facility] Common normals: normocephalic, head/scalp atraumatic and hearing grossly normal bilaterally Eye Common normals: PERRL, EOMs intact bilaterally, conjunctivae normal and no scleral icterus General eye: normal appearance of both eyes Chest Common normals: inspection of chest normal Chest: symmetrical chest wall rise Respiratory Common normals: normal respiratory effort, no use of accessory muscles and clear to auscultation bilaterally Effort & inspection: able to speak in complete sentences Cardio Common normals: regular rate, regular rhythm, S1 normal heart sound, S2 normal heart sound and peripheral pulses 2+ throughout Heart sounds: murmur (HSM 2/6) GI Common normals: Normal to inspection, nondistended, normoactive bowel sounds pre sent, soft to palpation, non-tender and no hepatosplenomegaly Bladder/kidney exam: bladder normal to palpation Extremity Common normals: normal to inspection and no calf tenderness General: edema (Trace bilat insteps); no clubbing and no cyanosis Neuro Common normals: CN's II-XII intact bilaterally, moves all extremities, no focal motor deficits and no sensory deficits noted Psych Common normals: mental status grossly normal Progress Note: Objective Labs Labs: Short CBC 05/24/24 Range/Units 04:50 WBC 3.2 L (4.0-11.0) 10^3/uL Hgb 9.4 L (14.0-18.0) g/dL Hct 30.5 L (42.0-54.0) % Plt Count 252 (150-450) 10^3/uL BMP 05/24/24 04:50 Sodium 140 Potassium 3.4 L Chloride 101 Carbon Dioxide 27.1 BUN 7.0 Creatinine 0.86 Glucose 106 Calcium 8.7 Liver Function 05/24/24 Range/Units 04:50 Total Bilirubin 0.4 (0.2-1.0) mg/dL AST 55 H (15-37) U/L ALT 29 (16-63) U/L Alkaline Phosphatase 236 H (46-116) U/L Albumin 2.6 L (3.4-5.0) g/dL Urine 05/23/24 Range/Units 14:08 Urine Color Lt. yellow (YELLOW) Urine Clarity Clear (CLEAR) Urine pH 6.0 (5.0-9.0) Ur Specific [place] 1.010 (1.005-1.025) Urine Protein Negative (NEG/TRACE) mg/dL Urine Glucose (UA) Negative (NEGATIVE) mg/dL Progress Note: A&P Assessment and Plan (1) Aspiration pneumonia: Assessment and Plan: Acute * Improving * Pt weaned off of O2 supplementation overnight * Procal dropped below sepsis threshold to 0.42 today * Continue IVPB Zosyn and Vanco for broad gram neg and pos coverage in an immunocompromised pt * Sputum culture sent this morning * O2 supplementation as needed to keep sats above 90% * Reduce NS IVF to 85/hr for more gentle hydration in setting of rising BNP level and trace peripheral edema * BC x 2 still pending * Daily CBC, CMP, PCT (2) Acute respiratory failure with hypoxia: Assessment and Plan: Acute * Resolving * Pt weaned off of O2 supplementation overnight * Hemoptysis reported - sputum pending (3) Bowel obstruction: Assessment and Plan: Acute * Per CT abdomen/pelvis, large colonic mass likely causing complete obstruction now w/ dilated sm bowel and cecum * C/S Surgery for possible diverting ileostomy once the pt is medically optimized * Dr Galvan discussed the CT imaging findings with attending physician Dr Clarke. He does not believe the pt has a complete obstruction. Does not recommend surgical intervention at this time * Acute abdomen X-ray obtained yesterday and it revealed a non-obstructive pattern consistent w/ Dr Galvan's evaluation (4) Dehydration: Assessment and Plan: Acute * Resolving * Continue NS IVF as above * CMP daily (5) Lactic acidosis: Assessment and Plan: Acute * Resolved (6) Esophageal candidiasis: Assessment and Plan: Acute * Found via endoscopy w/ biopsy on 05/10/24 * Pathology resulted after the pt was discharged and it does not appear that treatment was initiated at the SNF * Continue Diflucan IVPB 400 mg daily x 14 days (7) Dysphagia: Assessment and Plan: Chronic * 2/2 to hx of tongue CA s/p partial tongue resection and overall weakness * Diagnosed by SHIELD OPERATOR on last admission - pureed food w/ nectar thick liquids recommended * Suspect acute worsening based on repeat SHIELD OPERATOR eval 05/23/24 * Modified barium swallow study planned for today * Consider PEG tube placement pending results (8) Moderate protein-calorie malnutrition: Assessment and Plan: Chronic * PICC placement ordered today * TPN ordered per special order jeweler recommendations (9) Macrocytic anemia: Assessment and Plan: Chronic * Remains stable - slightly improved today * Vit B12 level WNL * CBC daily to monitor (10) Metastatic colon cancer to liver: Assessment and Plan: Chronic * Metastases to liver, lung, abd lymph nodes, and now bones * Following outpatient with Dr Harper, but has not had an appointment yet since discharge on 05/10/24 * Defer to outpatient management with chemotherapy - Palliative care only (not curative) per Dr Harper's note. * Oncology clinic to set up an appointment (11) Metastatic cancer to lung of unknown cell type: Assessment and Plan: Chronic * See colon CA above (12) Type 2 diabetes mellitus with hyperglycemia: Assessment and Plan: Chronic * ACHS glucometer checks * Med dose SSI for glucose correction (13) Asthma: Assessment and Plan: Chronic * Substitute scheduled and prn duoneb treatments and scheduled pulmicort nebs for home Trelegy Ellipta
--- NOTE | 2024-05-24 11:03 | PM.PN ---
Progress Note: Subjective Subjective Interval history: 05/23/24 0890 The pt is resting in bed after just returning from the bathroom. He reports a large, firm stool this morning. He is hungry and wanting to eat. Unfortunately, he was evaluated by [facility] yesterday afternoon and significant dysphagia w/ aspiration is suspected. A modified barium swallow study has been ordered for today to further evaluate his swallowing and final diet recommendations from [facility] are still pending. In the meantime, we will order a PICC line to be placed and the pt will be started on TPN as he has protein calorie malnutrition and is losing weight. A feeding tube placement may need to be considered pending the results of the barium swallow study. Otherwise, the pt is improving and was weaned off of O2 supplementation overnight. Reports feeling a little better today. Exam Constitutional Vital Signs, click to edit/add: Last Vital Signs Temp 98.4 F 05/24/24 08:02 Pulse 76 05/24/24 10:00 Resp 18 05/24/24 08:02 BP 149/82 H 05/24/24 08:02 Pulse Ox 95 05/24/24 09:48 O2 Del Method Room Air 05/24/24 09:48 O2 Flow Rate 1 05/23/24 10:08 Common normals: no apparent distress, oriented x3 and alert General appearance: cooperative Orientation/consciousness: Yes awake [place] Common normals: normocephalic, head/scalp atraumatic and hearing grossly normal bilaterally Eye Common normals: PERRL, EOMs intact bilaterally, conjunctivae normal and no scleral icterus General eye: normal appearance of both eyes Chest Common normals: inspection of chest normal Chest: symmetrical chest wall rise Respiratory Common normals: normal respiratory effort, no use of accessory muscles and clear to auscultation bilaterally Effort & inspection: able to speak in complete sentences Cardio Common normals: regular rate, regular rhythm, S1 normal heart sound, S2 normal heart sound and peripheral pulses 2+ throughout Heart sounds: murmur (HSM 2/6) GI Common normals: Normal to inspection, nondistended, normoactive bowel sounds present, soft to palpation, non-tender and no hepatosplenomegaly Bladder/kidney exam: bladder normal to palpation Extremity Common normals: normal to inspection and no calf tenderness General: edema (Trace bilat insteps); no clubbing and no cyanosis Neuro Common normals: CN's II-XII intact bilaterally, moves all extremities, no focal motor deficits and no sensory deficits noted Psych Common normals: mental status grossly normal Progress Note: Objective Labs Labs: Short CBC 05/24/24 Range/Units 04:50 WBC 3.2 L (4.0-11.0) 10^3/uL Hgb 9.4 L (14.0-18.0) g/dL Hct 30.5 L (42.0-54.0) % Plt Count 252 (150-450) 10^3/uL BMP 05/24/24 04:50 Sodium 140 Potassium 3.4 L Chloride 101 Carbon Dioxide 27.1 BUN 7.0 Creatinine 0.86 Glucose 106 Calcium 8.7 Liver Function 05/24/24 Range/Units 04:50 Total Bilirubin 0.4 (0.2-1.0) mg/dL AST 55 H (15-37) U/L ALT 29 (16-63) U/L Alkaline Phosphatase 236 H (46-116) U/L Albumin 2.6 L (3.4-5.0) g/dL Urine 05/23/24 Range/Units 14:08 Urine Color Lt. yellow (YELLOW) Urine Clarity Clear (CLEAR) Urine pH 6.0 (5.0-9.0) Ur Specific [place] 1.010 (1.005-1.025) Urine Protein Negative (NEG/TRACE) mg/dL Urine Glucose (UA) Negative (NEGATIVE) mg/dL Progress Note: A&P Assessment and Plan (1) Aspiration pneumonia: Assessment and Plan: Acute Improving Pt weaned off of O2 supplementation overnight Procal dropped below sepsis threshold to 0.42 today Continue IVPB Zosyn and Vanco for broad gram neg and pos coverage in an immunocompromised pt Sputum culture sent this morning O2 supplementation as needed to keep sats above 90% Reduce NS IVF to 85/hr for more gentle hydration in setting of rising BNP level and trace peripheral edema BC x 2 still pending Daily CBC, CMP, PCT (2) Acute respiratory failure with hypoxia: Assessment and Plan: Acute Resolving Pt weaned off of O2 supplementation overnight Hemoptysis reported - sputum pending (3) Bowel obstruction: Assessment and Plan: Acute Per CT abdomen/pelvis, large colonic mass likely causing complete obstruction now w/ dilated sm bowel and cecum C/S Surgery for possible diverting ileostomy once the pt is medically optimized Dr Galvan discussed the CT imaging findings with attending physician Dr Clarke. He does not believe the pt has a complete obstruction. Does not recommend surgical intervention at this time Acute abdomen X-ray obtained yesterday and it revealed a non-obstructive pattern consistent w/ Dr Galvan's evaluation (4) Dehydration: Assessment and Plan: Acute Resolving Continue NS IVF as above CMP daily (5) Lactic acidosis: Assessment and Plan: Acute Resolved (6) Esophageal candidiasis: Assessment and Plan: Acute Found via endoscopy w/ biopsy on 05/10/24 Pathology resulted after the pt was discharged and it does not appear that treatment was initiated at the SNF Continue Diflucan IVPB 400 mg daily x 14 days (7) Dysphagia: Assessment and Plan: Chronic 2/2 to hx of tongue CA s/p partial tongue resection and overall weakness Diagnosed by [facility] on last admission - pureed food w/ nectar thick liquids recommended Suspect acute worsening based on repeat [employer] [facility] eval 05/23/24 Modified barium swallow study planned for today Consider PEG tube placement pending results (8) Moderate protein-calorie malnutrition: Assessment and Plan: Chronic PICC placement ordered today TPN ordered per senior controls engineer recommendations (9) Macrocytic anemia: Assessment and Plan: Chronic Remains stable - slightly improved today Vit B12 level WNL CBC daily to monitor (10) Metastatic colon cancer to liver: Assessment and Plan: Chronic Metastases to liver, lung, abd lymph nodes, and now bones Following outpatient with Dr Harper, but has not had an appointment yet since discharge on 05/10/24 Defer to outpatient management with chemotherapy - Palliative care only (not curative) per Dr Harper's note. 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
[2024-05-24 11:24] LABS: Glucometer 109 mg/dL (74-106)
--- NOTE | 2024-05-24 11:50 | SWNOTE1 ---
Nurse Practitioner called to see if HH can do TPN. SW called [facility] and they are able to accommodate if needed. SW let SEISMOGRAPH OPERATOR HELPER know.
--- NOTE | 2024-05-24 12:04 | SWNOTE1 ---
ROBSON did speak with Evelia from [facility] , she is a dog day care attendant. ROBSON updated her with the potential of TPN, feeding tube, and the plan for a modified barium swallow study. ROBSON will updated [facility] on Monday after weekend in regards to discharge plans.
--- NOTE | 2024-05-24 12:05 | CM.NOTE ---
Rounds made with Dr. Clarke. Dr. Clarke reviewed test results and plan of care with Hola. Hola verbalized understanding. No discharge for today.
[2024-05-24] MEDS: MULTIVIT INFUSN,ADULT 4,VIT K 10 ML in AA 5 %/CALCIUM/LYTES/DEXT 20 % 1,000 ML 75 ML IV (15:24)
[2024-05-24] MEDS: 0.9 % SODIUM CHLORIDE 250 ML 10 ML IV (15:27)
[2024-05-24 16:14] LABS: Glucometer 153 mg/dL (74-106)
[2024-05-24] MEDS: FLUCONAZOLE IN NACL,ISO-OSM 200 MG/100 ML PIGGYBACK 100 MG IV ×2 (16:34→17:34)
[2024-05-24] MEDS: HYDRALAZINE HCL 20 MG/ML VIAL 10 MG IVP (18:14)
[2024-05-24 20:28] LABS: Glucometer 292 mg/dL (74-106)
[2024-05-24] MEDS: INSULIN ASPART 300 UNIT/3 ML PEN SUBQ (21:39)
[2024-05-25] VITALS (18 sets, daily range): BP systolic 89–171; BP diastolic 47–98; PULSE 61–89; TEMP 36.3–36.8; O2SAT 91–99
[2024-05-25] MEDS: HYDRALAZINE HCL 20 MG/ML VIAL 10 MG IVP ×2 (01:33→21:58)
[2024-05-25] MEDS: PANTOPRAZOLE SODIUM 40 MG VIAL IV (04:15)
[2024-05-25] MEDS: MULTIVIT INFUSN,ADULT 4,VIT K 10 ML in AA 5 %/CALCIUM/LYTES/DEXT 20 % 1,000 ML 75 ML IV ×2 (04:15→15:26)
[2024-05-25] MEDS: PIPERACILLIN SODIUM/TAZOBACTAM 3.375 GM in 0.9 % SODIUM CHLORIDE 50 ML IV ×3 (04:19→21:59)
[2024-05-25] MEDS: KETOROLAC TROMETHAMINE 30 MG/ML VIAL IVP (05:34)
[2024-05-25 06:50] LABS: Basophils Percent Auto 0.5 % (0.2-2.0); Eosinophils Absolute Auto 0.1 10^3/uL (0.0-0.7); Eosinophils Percent Auto 2.5 % (0.9-7.0); Hematocrit 28.4 % (42.0-54.0); Hemoglobin 8.8 g/dL (14.0-18.0); Immature Granulocytes Abs Auto 0.01 10^3/uL (0.00-0.03); Immature Granulocytes Pct Auto 0.3 % (0.0-0.5); Lymphocytes Absolute Auto 0.7 10^3/uL (1.2-3.8); Lymphocytes Percent Auto 18.1 % (20.5-60.0); Mean Corpuscular Hemoglobin 28.9 pg (25.9-34.0); Mean Corpuscular Volume 93.4 fL (80.0-94.0); Mean Platelet Volume 9.6 fL (9.5-13.5); Monocytes Absolute Auto 0.5 10^3/uL (0.3-0.8); Monocytes Percent Auto 13.7 % (1.7-12.0); Neutrophils Absolute Auto 2.4 10^3/uL (1.4-6.5); Neutrophils Percent Auto 64.9 % (43.0-75.0); Platelet Count 248 10^3/uL (150-450); Red Blood Count 3.04 10^6/uL (4.70-6.10); Red Cell Distribution Width 15.5 % (11.0-15.0); White Blood Count 3.7 10^3/uL (4.0-11.0)
[2024-05-25 07:10] LABS: Alanine Aminotransferase 25 U/L (16-63); Albumin Globulin Ratio 0.5; Albumin Level 2.4 g/dL (3.4-5.0); Alkaline Phosphatase 199 U/L (46-116); Anion Gap 10.8; Aspartate Amino Transferase 38 U/L (15-37); BUN Creatinine Ratio 12.7; Bilirubin Total 0.4 mg/dL (0.2-1.0); Calcium 8.8 mg/dL (8.5-10.1); Carbon Dioxide 30.4 mmol/L (21.0-32.0); Chloride 100 mmol/L (98-107); Estimated GFR (African America >60 (>=60); Estimated GFR (Non-African Ame >60 (>=60); Globulin 4.5 g/dL; Glucose 254 mg/dL (74-106); Potassium 3.2 mmol/L (3.5-5.1); Sodium 138 mmol/L (136-145); Total Protein 6.9 g/dL (6.4-8.2)
[2024-05-25 07:34] LABS: PROCALCITONIN 0.45 ng/mL (0.00-0.50)
[2024-05-25 07:34] LABS: Glucometer 289 mg/dL (74-106)
[2024-05-25 07:54] LABS: Vancomycin Trough 14.8 ug/mL (5.0-20.0)
[2024-05-25] MEDS: INSULIN ASPART 300 UNIT/3 ML PEN SUBQ ×4 (07:59→22:00)
[2024-05-25] MEDS: VANCOMYCIN HCL 750 MG in 0.9 % SODIUM CHLORIDE 250 ML 250 MG IV (08:57)
[2024-05-25] MEDS: ENOXAPARIN SODIUM 40 MG/0.4 ML SYRINGE SUBQ (09:02)
[2024-05-25] MEDS: IPRATROPIUM/ALBUTEROL SULFATE 3 ML AMPUL.NEB IH ×2 (09:20→20:05)
[2024-05-25] MEDS: BUDESONIDE 0.5 MG/2 ML AMPULE NEB IH ×2 (09:20→20:05)
--- NOTE | 2024-05-25 10:30 | PT.DAILY ---
Physical Therapy Daily Note PT Daily Note/Assess Start: 05/23/24 14:44 Freq: Status: Active Protocol: Document 05/25/24 10:09 [id number] (Rec: 05/25/24 10:30 [id number] Laptop) Physical Therapy Daily Note/Assessment Time In/Time Out Time In 09:01 Time Out 09:18 Pain In Pain Level 3 Pain Out Pain Level 1 Subjective Subjective Patient reports cramping to L calf and top of foot. Patient received in bed in R side lying position. States he would like to use the bathroom. Agreeable to work with physical therapy. Therapeutic Activity Time Therapeutic Activity Minutes (minutes) 17 Therapeutic Activity Units 1 Therapeutic Activity Treatment Bed Mobility Ability Modified Independent Chair Transfer Ability Contact Guard Assist Therapeutic Activity Comments Max A to blayne safety socks prior to participating with physical therapy. R side lying to sit CGA +1. Patient sat EOB ~1 minute due to increased RIGOBERTO LE pain from circulation issues. Sit to stand X 2 CGA to perform lateral side stepping to R toward HOB. STS to RW CGA, ambulated 12' to bathroom. Stood while urinating with 1 UE on RW, pivot to L and walked ~3' to sink. Independent in washing hands at sink. Ambulated ~20' to chair at bedside for seated therapeutic rest break. STS to RW, CGA and ambulated ~110' and returned to chair at bedside in care of respiratory therapist. Patient demonstrated flexed knees and R step to gait pattern when ambulating. Total Physical Therapy Time Total Therapy Minutes 17 Total Physical Therapy Units 1 Summary Daily Note Summary Patient demonstrates increased ambulation distance this date with postural deviation of flexed knees and R step to gait. Able to laterally side step with CGA. Patient would benefit from HH upon DC to address strength and endurance .
[2024-05-25 11:49] LABS: Glucometer 218 mg/dL (74-106)
--- NOTE | 2024-05-25 11:56 | PC.NURSE ---
[facility] notified and message left on voicemail for order for consult per Dr Sam
[2024-05-25] MEDS: FLUCONAZOLE 100 MG TABLET 400 MG PO (12:22)
--- NOTE | 2024-05-25 14:15 | P.IMPN_ITS ---
Progress Note: A&P Assessment and Plan (1) Aspiration pneumonia: Assessment and Plan: On IV Zosyn. Improving. No respiratory distress or symptoms. On room air. Continue with same. Follow-up cultures Qualifiers: Aspiration pneumonia type: due to gastric secretions Laterality: right Lung location: lower lobe of lung Qualified Code(s): J69.0 - Pneumonitis due to inhalation of food and vomit (2) Acute respiratory failure with hypoxia: Assessment and Plan: Room air now. Continue with IV Zosyn. (3) Dysphagia: Assessment and Plan: Oropharyngeal dysphagia with high risk of aspiration. Patient was made n.p.o. and initially plan was to proceed with peg tube. However, patient is refusing PEG tube. He initially agreed to comfort care measures only and asked for hospice consult but then change his mind. I had a detailed discussion with him and provided him extensive education on the risk of aspiration and he stated that he understood the risk and would like to start oral feeding. I will start him on pur?ed diet as he was previously on pur?ed diet. Monitor closely for aspiration. Qualifiers: Dysphagia type: oropharyngeal phase Qualified Code(s): R13.12 - Dysphagia, oropharyngeal phase (4) Esophageal candidiasis: Assessment and Plan: Patient was previously on IV fluconazole. Can change to oral Diflucan (5) Metastatic colon cancer to liver: Assessment and Plan: Metastasis to multiple organs. Outpatient follow-up with Oncology (6) Type 2 diabetes mellitus with hyperglycemia: Assessment and Plan: Continue sliding scale insulin while inpatient. Qualifiers: Diabetes mellitus nursing home insulin use: without nursing home use Qualified Code(s): E11.65 - Type 2 diabetes mellitus with hyperglycemia (7) Asthma: Assessment and Plan: DuoNebs as needed. Qualifiers: Asthma severity: mild Asthma persistence: intermittent Asthma complication type: uncomplicated Qualified Code(s): J45.20 - Mild intermittent asthma, uncomplicated (8) Hyperlipidemia: Assessment and Plan: Continue with lipid. Qualifiers: Hyperlipidemia type: unspecified Qualified Code(s): E78.5 - Hyperlipidemia, unspecified (9) Hypothyroidism: Assessment and Plan: Continue with levothyroxine Qualifiers: Hypothyroidism type: unspecified Qualified Code(s): E03.9 - Hypothyroidism, unspecified (10) Severe malnutrition: Assessment and Plan: Severe malnutrition secondary to colon cancer/multiple metastasis/oropharyngeal dysphagia resulting in poor oral intake, dehydration, weight loss, no subcutaneous fat, muscle mass. Started on TPN and initially the plan was to proceed with PEG tube placement for his oropharyngeal dysphagia. However, patient changed his mind and would like to start oral feeding and refusing to consider PEG tube. Plan Restart oral feeding. Continue with IV antibiotics. Monitor for aspiration. If tolerates p.o. diet, will discharge on oral antibiotic to finish treatment course for pneumonia. Internal Medicine - PN: Subj Subjective Interval history: Seen and examined. No overnight events. On TPN now. Detailed discussion with the patient. He does not want Feeding tube and would like to continue with oral diet. He is also not very keen on TPN. He initially had agreed to consulting hospice but then changed his mind. His currently NPO. Has no active complaints to offer. Exam Constitutional Vital Signs, click to edit/add: Last Vital Signs Temp 97.4 F L 05/25/24 06:00 Pulse 74 05/25/24 14:00 Resp 18 05/25/24 06:00 BP 89/47 L 05/25/24 06:00 Pulse Ox 96 05/25/24 09:25 O2 Del Method Room Air 05/25/24 09:25 O2 Flow Rate 1 05/23/24 10:08 General appearance: cooperative, comfortable and frail appearing Respiratory Common normals: normal respiratory effort, no use of accessory muscles and clear to auscultation bilaterally Effort & inspection: able to speak in complete sentences Cardio Common normals: regular rate, regular rhythm, S1 normal heart sound and S2 normal heart sound GI Common normals: Normal to inspection, nondistended, normoactive bowel sounds present, soft to palpation and non-tender Extremity Common normals: normal to inspection and full ROM Neuro Common normals: oriented x3, moves all extremities and no focal motor deficits Sensorium/orientation: awake and alert Psych Common normals: mental status grossly normal, thought process normal, denies homicidal ideation and denies suicidal ideation Internal Medicine - PN: Obj Da Labs Labs: Laboratory Results - last 24 hr 05/24/24 05/24/24 05/25/24 16:13 20:27 05:30 WBC 3.7 L RBC 3.04 L Hgb 8.8 L Hct 28.4 L MCV 93.4 MCH 28.9 MCHC 31.0 RDW 15.5 H Plt Count 248 MPV 9.6 Neut % (Auto) 64.9 Lymph % (Auto) 18.1 L [place] % (Auto) 13.7 H Eos % (Auto) 2.5 Baso % (Auto) 0.5 Neut # (Auto) 2.4 Lymph # (Auto) 0.7 L [place] # (Auto) 0.5 Eos # (Auto) 0.1 Baso # (Auto) 0.0 Abs Immat Gran (auto) 0.01 Imm/Tot Granulo (auto) 0.3 Sodium 138 Potassium 3.2 L Chloride 100 Carbon Dioxide 30.4 Anion Gap 10.8 BUN 13.0 Creatinine 1.02 Est GFR ( Amer) >60 Est GFR (Non-Af Amer) >60 BUN/Creatinine Ratio 12.7 Glucose 254 H Calcium 8.8 Total Bilirubin 0.4 AST 38 H ALT 25 Alkaline Phosphatase 199 H NT-Pro-B Natriuret Pep 960.0 H Total Protein 6.9 Albumin 2.4 L Globulin 4.5 Albumin/Globulin Ratio 0.5 Procalcitonin 0.45 Vancomycin Trough POC Glucose 153 H 292 H 05/25/24 05/25/24 05/25/24 06:55 07:34 11:48 WBC RBC Hgb Hct MCV MCH MCHC RDW Plt Count MPV Neut % (Auto) Lymph % (Auto) [place] % (Auto) Eos % (Auto) Baso % (Auto) Neut # (Auto) Lymph # (Auto) [place] # (Auto) Eos # (Auto) Baso # (Auto) Abs Immat Gran (auto) Imm/Tot Granulo (auto) Sodium Potassium Chloride Carbon Dioxide Anion Gap BUN Creatinine Est GFR ( Amer) Est GFR (Non-Af Amer) BUN/Creatinine Ratio Glucose Calcium Total Bilirubin AST ALT Alkaline Phosphatase NT-Pro-B Natriuret Pep Total Protein Albumin Globulin Albumin/Globulin Ratio Procalcitonin Vancomycin Trough 14.8 POC Glucose 289 H 218 H
--- NOTE | 2024-05-25 14:26 | PM.CSD1 ---
Advance Care Planning Advance Care Planning Discussion Advance care planning discussion summary: 74-year-old male with extensive past medical history originally presented to the hospital with shortness of breath secondary to aspiration pneumonia, currently receiving TPN for malnutrition and is strictly n.p.o. because of oropharyngeal dysphagia. Patient's was also present into the room during our discussion. I had a detailed discussion with him regarding CODE STATUS, goals of care and comfort care measures. I explained to him his risk of aspiration even with PEG tube placement. I also explained to him and provided education on him on metastatic colon cancer and his prognosis given his age and poor nutritional status. He initially agreed to hospice and DNR comfort care measures only but then backtracked and change his mind. He would like to be a full code. He is refusing to have PEG tube placement but would like to restart feeding orally. He was explained detail the risk of aspiration because of his oropharyngeal dysphagia. He is insisting and would like to try oral diet again. I spent over 30 minutes with him regarding advance care planning that is separate from his routine care as a hospital follow-up. Advance care planning discussion participants: patient and other family member ()
[2024-05-25] MEDS: 0.9 % SODIUM CHLORIDE 250 ML 10 ML IV (15:26)
[2024-05-25 16:27] LABS: Glucometer 295 mg/dL (74-106)
[2024-05-25 21:39] LABS: Glucometer 228 mg/dL (74-106)
[2024-05-26] VITALS (9 sets, daily range): BP systolic 102; BP diastolic 55; PULSE 70–81; TEMP 36.7; O2SAT 93–100
[2024-05-26 05:31] LABS: Basophils Percent Auto 0.7 % (0.2-2.0); Eosinophils Absolute Auto 0.2 10^3/uL (0.0-0.7); Eosinophils Percent Auto 4.2 % (0.9-7.0); Hemoglobin 8.5 g/dL (14.0-18.0); Immature Granulocytes Abs Auto 0.02 10^3/uL (0.00-0.03); Immature Granulocytes Pct Auto 0.5 % (0.0-0.5); Lymphocytes Absolute Auto 0.9 10^3/uL (1.2-3.8); Mean Corpuscular HGB Conc 30.4 g/dL (29.9-35.2); Mean Corpuscular Hemoglobin 28.4 pg (25.9-34.0); Mean Corpuscular Volume 93.6 fL (80.0-94.0); Mean Platelet Volume 8.7 fL (9.5-13.5); Monocytes Absolute Auto 0.4 10^3/uL (0.3-0.8); Neutrophils Absolute Auto 2.8 10^3/uL (1.4-6.5); Neutrophils Percent Auto 64.6 % (43.0-75.0); Platelet Count 207 10^3/uL (150-450); Red Blood Count 2.99 10^6/uL (4.70-6.10); Red Cell Distribution Width 15.5 % (11.0-15.0); White Blood Count 4.3 10^3/uL (4.0-11.0)
[2024-05-26] MEDS: MULTIVIT INFUSN,ADULT 4,VIT K 10 ML in AA 5 %/CALCIUM/LYTES/DEXT 20 % 1,000 ML 75 ML IV (05:33)
[2024-05-26] MEDS: LEVOTHYROXINE SODIUM 75 MCG TABLET PO (05:34)
[2024-05-26] MEDS: PIPERACILLIN SODIUM/TAZOBACTAM 3.375 GM in 0.9 % SODIUM CHLORIDE 50 ML IV (05:34)
[2024-05-26 05:51] LABS: Alanine Aminotransferase 23 U/L (16-63); Albumin Globulin Ratio 0.5; Albumin Level 2.3 g/dL (3.4-5.0); Alkaline Phosphatase 210 U/L (46-116); Aspartate Amino Transferase 43 U/L (15-37); BUN Creatinine Ratio 21.6; Bilirubin Total 0.2 mg/dL (0.2-1.0); Calcium 8.9 mg/dL (8.5-10.1); Carbon Dioxide 29.8 mmol/L (21.0-32.0); Chloride 102 mmol/L (98-107); Estimated GFR (African America >60 (>=60); Estimated GFR (Non-African Ame >60 (>=60); Globulin 4.5 g/dL; Glucose 181 mg/dL (74-106); Potassium 3.8 mmol/L (3.5-5.1); Sodium 139 mmol/L (136-145); Total Protein 6.8 g/dL (6.4-8.2)
[2024-05-26] MEDS: METFORMIN HCL 500 MG TABLET PO (09:26)
[2024-05-26] MEDS: ATORVASTATIN CALCIUM 40 MG TABLET PO (09:26)
[2024-05-26] MEDS: ASPIRIN 81 MG TAB.CHEW PO (09:26)
[2024-05-26] MEDS: FLUCONAZOLE 100 MG TABLET 400 MG PO (09:26)
[2024-05-26] MEDS: ENOXAPARIN SODIUM 40 MG/0.4 ML SYRINGE SUBQ (09:26)
[2024-05-26] MEDS: BUDESONIDE 0.5 MG/2 ML AMPULE NEB IH (09:56)
[2024-05-26] MEDS: IPRATROPIUM/ALBUTEROL SULFATE 3 ML AMPUL.NEB IH (09:57)
--- NOTE | 2024-05-26 10:58 | P.DS_ITS ---
DS: Providers Provider Date of admission: 05/22/24 22:30 Primary care physician: NEO RAMIREZ Admitting clinician: Lakhwinder Clarke Attending physician on admission: Lakhwinder Clarke Consults: 05/22/24 Consult to Dietitian Routine Reason for consultation: poor appetite Has provider been notified: No 05/23/24 12:22 Occupational Therapy Eval and Treat Routine Reason for consultation: Gen weakness Has provider been notified: No Physical Therapy Eval and Treat Routine Reason for consultation: Gen weakness Has provider been notified: No 05/23/24 15:17 Speech Therapy Eval and Treat Routine Reason for consultation: Suspected aspiration on pureed diet w/ nectar thickened liquids Has provider been notified: No 05/24/24 07:00 Consult to General Surgeon Routine Consulting Provider: Issa Galvan Reason for consultation: Bowel obstruction from colonic mass. ??Ileostomy Has provider been notified: No 05/24/24 09:39 Consult to Dietitian Routine Reason for consultation: TPN Has provider been notified: No Attending physician on discharge: Shaikh Cecy Discharging clinician: Shaikh Cecy Anticipated date of discharge: 05/26/24 DS: Diagnosis Discharge Diagnosis (1) Aspiration pneumonia: Assessment and plan: On room air. No respiratory symptoms. Will discharge on oral Augmentin. Qualifiers: Aspiration pneumonia type: due to gastric secretions Laterality: right Lung location: lower lobe of lung Qualified Code(s): J69.0 - Pneumonitis due to inhalation of food and vomit (2) Acute respiratory failure with hypoxia: Assessment and plan: Resolved. On room air now. (3) Dysphagia: Assessment and plan: Due to prior history of glossectomy, worsening. Patient refusing PEG tube placement. We currently. Discussion about risk of aspiration with oral feeding. Patient verbalized understanding and understands the risk. His diet was resumed yesterday and he has been eating pur?ed diet with nectar thickened liquid with no overt signs or symptoms of aspiration. Qualifiers: Dysphagia type: oropharyngeal phase Qualified Code(s): R13.12 - Dysphagia, oropharyngeal phase (4) Esophageal candidiasis: Assessment and plan: Will discharge on oral fluconazole to complete his treatment course of esophageal candidiasis (5) Metastatic colon cancer to liver: Assessment and plan: Outpatient follow-up with Oncology (6) Type 2 diabetes mellitus with hyperglycemia: Assessment and plan: Continue with metformin Qualifiers: Diabetes mellitus intermediate insulin use: without terminal computer operator use Qualified Code(s): E11.65 - Type 2 diabetes mellitus with hyperglycemia (7) Asthma: Assessment and plan: Stable. No evidence of bronchospasm. Qualifiers: Asthma severity: mild Asthma persistence: intermittent Asthma complication type: uncomplicated Qualified Code(s): J45.20 - Mild intermittent asthma, uncomplicated (8) Hyperlipidemia: Assessment and plan: Continue with Lipitor Qualifiers: Hyperlipidemia type: unspecified Qualified Code(s): E78.5 - Hyperlipidemia, unspecified (9) Hypothyroidism: Assessment and plan: Continue with Synthyroid Qualifiers: Hypothyroidism type: unspecified Qualified Code(s): E03.9 - Hypothyroidism, unspecified (10) Severe malnutrition: Assessment and plan: Poor nutritional status because of oropharyngeal dysphagia/metastatic colon cancer/age and frailty. will Benefit from outpatient evaluation by nutrition DS: Summary Hospital Course Hospital Course: 74-year-old male presented to the hospital for hypoxia/cough with concern for aspiration and was admitted for acute respiratory failure with hypoxia secondary to aspiration pneumonia. He was treated with IV Zosyn and IV vancomycin. Vancomycin was later on discontinued because of negative blood cultures and sputum cultures. Patient had a swallow evaluation that was concerning for worsening oropharyngeal dysphagia for which a video/barium swallow evaluation was planned. Patient was made n.p.o. and he was started on TPN to provide him adequate nutrition. However patient later on decided that he would not want PEG tube placement and continued to eat orally. He was explained detail the risk of aspiration with his dysphagia and he verbalized understanding and accepted the risk associated with continued oral feeding. His diet was advanced to pur?ed with nectar thickened liquid. He is able to tolerate oral diet without overt signs and symptoms of aspiration. Patient is stable for discharge on oral antibiotic. Patient was instructed to follow-up with PCP in 1 to 2 weeks Status at Discharge Functional status at discharge: independent ambulation Overall status at discharge: patient is back to baseline Time Spent with Patient Time attestation: Total time spent providing and/or coordinating discharge services: Time spent: greater than 30 minutes Exam Constitutional Vital Signs, click to edit/add: Last Vital Signs Temp 98.1 F 05/26/24 05:43 Pulse 72 05/26/24 10:00 Resp 16 05/26/24 10:00 BP 102/55 05/26/24 05:43 Pulse Ox 100 05/26/24 10:00 O2 Del Method Room Air 05/26/24 10:00 O2 Flow Rate 1 05/23/24 10:08 General appearance: cooperative, comfortable and frail appearing Respiratory Common normals: normal respiratory effort, no use of accessory muscles and clear to auscultation bilaterally Effort & inspection: able to speak in complete sentences Cardio Common normals: regular rate, regular rhythm, S1 normal heart sound and S2 normal heart sound GI Common normals: Normal to inspection, nondistended, normoactive bowel sounds present, soft to palpation and non-tender Extremity Common normals: normal to inspection and full ROM Neuro Common normals: oriented x3, moves all extremities and no focal motor deficits Sensorium/orientation: awake and alert Psych Common normals: mental status grossly normal, thought process normal, denies homicidal ideation and denies suicidal ideation DS: Data Data Completed and Pending Labs on day of discharge: Labs from last 24 hours 05/26/24 05/25/24 05/25/24 05:13 21:37 16:26 WBC 4.3 RBC 2.99 L Hgb 8.5 L Hct 28.0 L MCV 93.6 MCH 28.4 MCHC 30.4 RDW 15.5 H Plt Count 207 MPV 8.7 L Neut % (Auto) 64.6 Lymph % (Auto) 20.0 L [place] % (Auto) 10.0 Eos % (Auto) 4.2 Baso % (Auto) 0.7 Neut # (Auto) 2.8 Lymph # (Auto) 0.9 L [place] # (Auto) 0.4 Eos # (Auto) 0.2 Baso # (Auto) 0.0 Abs Immat Gran (auto) 0.02 Imm/Tot Granulo (auto) 0.5 Sodium 139 Potassium 3.8 Chloride 102 Carbon Dioxide 29.8 Anion Gap 11.0 BUN 24.0 H Creatinine 1.11 Est GFR ( Amer) >60 Est GFR (Non-Af Amer) >60 BUN/Creatinine Ratio 21.6 Glucose 181 H Calcium 8.9 Total Bilirubin 0.2 AST 43 H ALT 23 Alkaline Phosphatase 210 H NT-Pro-B Natriuret Pep 501.0 Total Protein 6.8 Albumin 2.3 L Globulin 4.5 Albumin/Globulin Ratio 0.5 POC Glucose 228 H 295 H 05/25/24 11:48 WBC RBC Hgb Hct MCV MCH MCHC RDW Plt Count MPV Neut % (Auto) Lymph % (Auto) [place] % (Auto) Eos % (Auto) Baso % (Auto) Neut # (Auto) Lymph # (Auto) [place] # (Auto) Eos # (Auto) Baso # (Auto) Abs Immat Gran (auto) Imm/Tot Granulo (auto) Sodium Potassium Chloride Carbon Dioxide Anion Gap BUN Creatinine Est GFR ( Amer) Est GFR (Non-Af Amer) BUN/Creatinine Ratio Glucose Calcium Total Bilirubin AST ALT Alkaline Phosphatase NT-Pro-B Natriuret Pep Total Protein Albumin Globulin Albumin/Globulin Ratio POC Glucose 218 H Preliminary micro results at discharge 05/24/24 12:45 Sputum Culture - Preliminary Sputum - Expectorated Sputum 05/22/24 18:49 - Preliminary Blood NO GROWTH AT 36-48 HOURS. FINAL TO FOLLOW. 05/22/24 18:43 Blood Culture Result 1 - Preliminary Blood NO GROWTH AT 36-48 HOURS. FINAL TO FOLLOW. Discharge Plan Discharge Disposition: Home Health Service Condition: Good Discharge Medications: New clindamycin HCl 300 mg capsule 300 mg PO Q8H 7 Days Qty: 21 0RF fluconazole 200 mg tablet 400 mg PO DAILY 12 Days Qty: 24 0RF Continued dicyclomine 20 mg tablet 20 mg PO TIDWM furosemide 20 mg tablet 20 mg PO Q48H hydralazine 10 mg tablet 10 mg PO Q6H PRN (Reason: hypertension) metformin 500 mg tablet 500 mg PO DAILY ondansetron HCl 4 mg tablet 4 mg PO Q6H PRN (Reason: nausea and vomiting) omeprazole 40 mg capsule,delayed release(DR/EC) 40 mg PO BID atorvastatin 40 mg tablet 40 mg PO .qd aspirin 81 mg tablet,chewable 1 tab PO .qd Trelegy Ellipta 100-62.5-25 mcg blister with device 1 inh INHALATION Q24H levothyroxine 75 mcg tablet 75 mcg PO .qd Discontinued amoxicillin-pot clavulanate 875-125 mg tablet 1 tab PO Q12H 14 Days Qty: 28 0RF Patient Comments: 05/16/24-05/31/24 Activity: increase activity as tolerated Diet: advance to your usual diet Print Language: Hebrew Patient Instructions: Aspiration Pneumonia (DC) Forms: Portal Instructions Follow Up Appointments: Call Dr Ramirez [phone] on monday to schedule follow up appointment for one week
--- NOTE | 2024-05-27 10:57 | SWNOTE1 ---
Pt was discharged on 05/26/24. ROBSON sent over dc summary and progress notes from 05/25/24 and dc med rec to [facility].
--- NOTE | 2024-05-27 12:29 | CM.DCFOLLOWU ---
Person spoke with: patient How are you feeling? not well, fell last night (did not hit his head), helped him up How is your pain? throat is not feeling well Did you understand your discharge instructions? yes Do you have any questions about your discharge instructions? no Were you given any prescriptions at discharge? yes Were you able to get your prescriptions filled? yes Do you understand how to take your medications as ordered? yes Do you have any questions about your follow up appointment and do you plan to keep your follow up appointment? no questions, called and scheduled follow up. Is there anything else that you would like to discuss? Advised pt to be careful ambulating at home. Also let pt know that dc information was sent to [facility] and they should be contacting pt soon. Questions/Comments/Concerns/Other:none
== END 2024-05-26 14:26 | disposition home health service (06) | DRG 177 ==
LOC: ER 21:49 → MS 22:33
PROVIDERS: Nurse Practitioner; Physician Assistant; Registered Nurse; Admitting Provider Internal Medicine; Emergency Provider Emergency Medicine; PCP Family Medicine; Visit Provider Internal Medicine
DX: J69.0 Pneumonitis due to inhalation of food and vomit (principal); E43 Unspecified severe protein-calorie malnutrition; J96.01 Acute respiratory failure with hypoxia; C18.9 Malignant neoplasm of colon, unspecified; C78.7 Secondary malignant neoplasm of liver and intrahepatic bile duct; C78.00 Secondary malignant neoplasm of unspecified lung; C77.2 Secondary and unspecified malignant neoplasm of intra-abdominal lymph nodes; B37.81 Candidal esophagitis; E87.21 Acute metabolic acidosis; C79.51 Secondary malignant neoplasm of bone; E86.0 Dehydration; D53.9 Nutritional anemia, unspecified; E11.65 Type 2 diabetes mellitus with hyperglycemia; J44.9 Chronic obstructive pulmonary disease, unspecified; J45.20 Mild intermittent asthma, uncomplicated; R13.12 Dysphagia, oropharyngeal phase; E78.5 Hyperlipidemia, unspecified; E11.51 Type 2 diabetes mellitus with diabetic peripheral angiopathy without gangrene; K21.9 Gastro-esophageal reflux disease without esophagitis; E03.9 Hypothyroidism, unspecified; I10 Essential (primary) hypertension; Z85.810 Personal history of malignant neoplasm of tongue; Z79.82 Long term (current) use of aspirin; Z79.899 Other long term (current) drug therapy; Z79.890 Hormone replacement therapy; Z68.20 Body mass index [BMI] 20.0-20.9, adult
CPT/HCPCS: 36415; 36569; 36592; 71275; 74022; 74177; 80053; 80202; 81003; 82607; 82800; 82948; 83605; 83880; 84145; 84484; 85025; 85610; 87040; 87070; 87106; 87205; 92526; 92610; 93005; 94640; 94761; 96361; 96365; 96366; 96367; 96368; 96372; 96375; 96376; 97161; 97165; 97530; 97535; 99285; C1887; J0360; J1650; J1885; J2543; J3370; Q9967

== ENCOUNTER 2024-06-19 01:54 | Inpatient (IN) | payer MEDICARE, SELFPAY ==
[2024-06-19] VITALS (68 sets, daily range): BP systolic 93–196; BP diastolic 64–123; PULSE 67–122; TEMP 36.3–37.2; O2SAT 74–99; BMI 15.5; BMI 18.7
--- NOTE | 2024-06-19 02:01 | XR_ITS ---
The [address] [address] Patient Name: ROXANN DELAROSA MRN: [id number] date: 1950 Sex: M Assigned Patient Location: ER Current Patient Location: ER Accession/Order Number: [id number] Exam Date: 06/19/2024 02:08 Report Date: 06/19/2024 02:32 At the request of: REILLY BUSH Procedure: XR chest 1V EXAM: XR chest 1V HISTORY: SOB COMPARISON: 05/06/2024 TECHNIQUE: One view chest FINDINGS: There is right lower lobe consolidation, likely reflecting pneumonia. The left lung is clear. The heart size is normal. There is no effusion or pneumothorax. XR/XR chest 1V IMPRESSION: Right lower lobe pneumonia. Recommend follow-up imaging to ensure resolution. Electronically authenticated by: ABBIE FRYE Date: 06/19/2024 02:32
--- NOTE | 2024-06-19 02:01 | ECG_ITS ---
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
--- OUTSIDE RECORDS SUMMARY | 2024-06-19 02:04 | XMS_ITS | CCD ---
Author Organization [facility] CliniSymd Care Team Providers Care User Experience Lead Name Role Phone Apollo Lopes Unavailable Unavailable Neo Singh Unavailable Unavailable Arleen Hudson Unavailable Irina Carcamo Unavailable Unavailable Maicol Fisher Unavailable Unavailable Apollo Lopes Unavailable Unavailable Neo Singh Unavailable Unavailable Unavailable Luis Moe Unavailable [phone] MD Neo Singh Primary Care Provider MD Apollo Lopes Attending Provider MD ANDREA HAWTHORNE Attending Unavailab le [facility] Unavailable LAVERTMadison, Dr. APOLLO Bowles Referring Unavailabl e LAVERTMadison, Dr. APOLLO Bowles Attending [facility]availabl e [facility] Unavailable WIECEK, DR DONYA Gonzalez Admitting Unavailable WIECEK, DR DONYA Gonzalez Attending Unavailable WIECERick, DR DONYA Gonzalez Consulting Unavailable SAMANTHA, DR [...] PROVIDER, UNKNOWN Admitting Unavailable Neo Singh MD Primary Care Provider [phone] Irina Wesley MD Unavailable [phone] MD Neo Singh Primary Care Provider [phone] DO Issa Salas Attending Provider APOLLO LOPES Attending Unavailable NEO SINGH Primary Care Unavailable NEO SINGH Attending Unavailable NEO SINGH Attending Unavailable NEO SINGH Attending Unavailable CLAIRE LYNCH Attending Unavailable MER CHEN Attending Unavailable MD Deven Landin Other Provider Unavailable MD Tiffany Escobar Attending Provider Issa Salas Admitting Unavailable Issa Salas Attending Unavailable Neo Singh Primary Care Unavailable Neo Singh Primary Care Unavailable Deven Landin Consulting Unavailable Tiffany Escobar Admitting UnavailTiffany Taylor Attending Unavailronaldo lyman Allergies Allergy Classification Reported Allergen(s) Allergy Type Date of Onset Reaction(s) Facility (4 sources) Latex rubber gloves; Translations: [Latex Gloves] Allergy to drug (finding) [place] [facility] [place] Work Phone: (5 sources) Latex; Translations: [latex] Allergy to substance 07-13-2015 Unknown [facility] Medications Current Medications Medication Drug Class(es) Dates Sig (Normalized) Sig (Original) [id number] actuat albuterol 0.09 mg/actuat metered dose inhaler (1 source) beta2-Adrenergic Agonist albuterol 90 mcg/actuation inhaler Albuterol Sulfate HFA AERS Refills: 0 Active 0 Active ascorbic acid 500 mg chewable tablet (4 sources) Vitamin C Start: 05-23-2019 take 1 tablet by mouth once daily Ascorbic Acid (Vitamin C) (Vitamin C) 500 mg Tablet,Chewable Active 500 MG PO Daily May 23, 2019 12:00am Ascorbic Acid Ac tive aspirin 81 mg delayed release oral tablet (11 sources) Platelet Aggregation Inhibitor, Nonsteroidal Anti-inflammatory Drug Start: 06-05-2024 take 81 mg by mouth once daily Aspirin Active 81 MG PO Daily June 05, 2024 12:00am Start: 06-11-2020 aspirin 81 mg chewable tablet Chew 1 tablet (81 mg) once daily. 0 06/11/2020 Active atorvastatin 40 mg oral tablet (12 sources) HMG-CoA Reductase Inhibitor Start: 06-05-2024 take 40 mg by mouth once daily Atorvastatin Active 40 MG PO Daily June 05, 2024 12:00am Start: 06-07-2021 take 1 tablet by jacky th once daily atorvastatin (Lipitor) 40 mg tablet Take 1 tablet (40 mg) by mouth once daily. 0 06/07/2021 Active carvedilol 6.25 mg oral tablet (11 sources) alpha-Adrenergic Alena, beta-Adrenergic Alena Start: 06-01-2021 take 1 tablet by mouth twice daily carvedilol (Coreg) 6.25 mg tablet Take 1 tablet (6.25 mg) by mouth 2 times a day. 0 06/01/2021 Active dicyclomine hydrochloride 20 mg oral tablet (1 source) Anticholinergic Start: 06-05-2024 take 20 mg by mouth three times daily Dicyclomine Active 20 MG PO Three times daily June 05, 2024 12:00am doxepin hydrochloride 25 mg oral capsule (5 [...] Active FLUTICASONE-UMECLI DIN-VILANTER INHL (1 source) FLUTICASONE-UMEC L IDIN-VILANTER INHL Trelegy Ellipta AEPB Refills: 0 Active 0 Active furosemide 20 mg oral tablet (1 source) Loop Diuretic Start: 06-05-2024 Furosemide Active 20 MG PO Every 48 hours June 05, 2024 12:00am hydrALAZINE hydrochloride 10 mg oral tablet (1 source) Arteriolar Vasodilator Start: 06-05-2024 take 10 mg by mouth four times daily Hydralazine Active 10 MG PO Four times daily June 05, 2024 12:00am levothyroxine sodium 0.075 mg oral tablet (20 sources) l-Thyroxine Start: 08-22-2018 take 75 ug [...] by mouth once daily. 0 09/08/2020 Active metFORMIN hydrochloride 1000 mg oral tablet (14 sources) Biguanide Start: 06-05-2024 take 500 mg by mouth once daily Metformin Active 500 MG PO Daily June 05, 2024 1:42pm Start: 07-14-2023 take 1 tablet by jacky th once daily metFORMIN (Glucophage) 500 mg tablet Take 1 tablet (500 mg) by mouth once daily. 0 07/14/2023 Active Start: 04-29-2014 End: 06-05-2024 take 1000 mg by mouth once daily Metformin Discontinued 1000 MG PO Daily November 30, 2017 1:00am June 05, 2024 1:44pm Start: 04-29-2014 metFORMIN HCl - 1000 MG Oral Tablet Quantity: 60 Refills: 0 Ordered: 29-Apr-2014 DO Start : 29-Apr-2014 Active omeprazole 40 mg delayed release oral capsule (1 source) Proton Pump Inhibitor Start: 06-05-2024 take 40 mg by mouth once daily Omeprazole Active 40 MG PO Daily June 05, 2024 12:00am vitamin b12 0.5 mg oral tablet (3 sources) Vitamin B12 Start: 11-30-2017 take 500 [...] furoate 0.0275 mg/actuat metered dose nasal spray (8 sources) Corticosteroid Start: 07-06-2021 Flonase Sensimist 27.5 MCG/SPRAY Nasal Suspension USE DIRECTED. Quantity: 0 Refills: 0 Ordered: 06-Jul-2021 DO Start : 06-Jul-2021 Active Start: 05-21-2021 Fluticasone Fu roate (Flonase Sensimist) 27.5 mcg/actuation [place],Suspension Active 1 SPRAY INTRANASAL Daily May 21, [...] Ordered: 08-Jun-2021 DO Start : 11-Dec-2020 Active Hovwy-Oz-4-Dha-Epa-Alia spho-Ast (3 sources) Start: 11-30-2017 End: 06-05-2024 take 3 capsules by mouth once daily Zdlfw-Sa-7-Dha-Epa-Ph ospho-Ast Discontinued 1 CAP PO Daily November 30, 2017 1:00am June 05, 2024 1:43pm Start: 11-30-2017 take 3 capsules by mouth once daily Ewvxt-Bi-3-Xun-Vtq-Eerfqgq-Ast Active 1 CAP PO Daily November 30, 2017 1:00am Start: 11-30-2017 take 3 capsules by mouth once daily Zmjex-Cr-9-Yeo-Xfh-Ytswdiy-Ast Active 1 CAP PO Daily November 30, 2017 12:00am Magnesium (4 sources) Start: 05-23-2019 End: 06-05-2024 take 250 mg by mouth once daily Magnesium Discontinued 250 MG PO Daily May 23, 2019 12:00am June 05, 2024 1:43pm Start: 05-23-2019 take 250 mg by mouth once thuy y Magnesium Active 250 MG PO Daily May 23, 2019 12:00am Start: 05-23-2019 take 250 mg by mouth once thuy y Magnesium Active 250 MG PO Daily May 22, 2019 11:00pm take 1 tablet by jacky th once daily MAGNESIUM ORAL Take 1 tablet by mouth once daily. 0 Active ondansetron 4 mg disintegrating oral tablet [...] hydrochloride 120 mg extended release oral tablet (3 sources) alpha-Adrenergic Agonist Start: 05-21-2021 End: 05-21-2021 take 1 tablet by mouth every twelve hours Pseudoephedrine Hcl (Sudafed 12 Hour) 120 mg Tablet Extended Release Discontinued 120 MG PO Q12H May 21, 2021 12:00am May 21, 2021 10:49am Pseudoephedrine-Guaif enesin (Mucinex D) 60-600 mg Tablet Extended Release 12 Hr (3 sources) Start: 05-21-2021 End: 06-05-2024 take 1 tablet by mouth every twelve hours, then take 1 tablet by mouth every twelve hours Pseudoephedrine-Guai fenesin (Mucinex D) 60-600 mg Tablet Extended Release 12 Hr Discontinued 1 TAB PO Q12H May 21, 2021 12:00am June 05, 2024 1:43pm Start: 05-21-2021 take 1 tablet by jacky [...] PO Q12H 60 May 20, 2021 11:00pm SITagliptin 100 mg oral tablet (6 sources) Dipeptidyl Peptidase 4 Inhibitor Start: 02-15-2021 take 1 tablet by mouth once daily Januvia 100 MG Oral Tablet TAKE 1 TABLET BY MOUTH EVERY DAY Quantity: 30 Refills: 0 Ordered: 13-Jun-2021 DO Start : 15-Feb-2021 Active Trelegy Ellipta AEPB (4 sources) Trelegy Ellipta AEPB Quantity: 0 Refills: 0 Ordered: 20-Sep-2022 DO Active Problems Active Problems Problem Classification Problem Date Documented Da te Episodic/Chronic Acute myocardial infarction (1 source) Non-ST elevation (NSTEMI) myocardial infarction; Translations: [NON-ST ELEVATION MYOCARDIAL INFARCT] Onset: 3 Chronic Cancer of colon (3 sources) Malignant tumor of colon; Translations: [Malignant neoplasm of colon, unspecified] Onset: 4 06-05-2024 Chronic Cancer of head and neck (20 [...] disease (1 source) Atherosclerotic heart disease of [place] coronary artery without angina pectoris; Translations: [ASHD [place] W/O ANGINA PECTORIS] Onset: 3 Chronic Deficiency and other anemia (3 sources) Anemia; Translations: [Anemia, unspecified] 05-21-2021 Episodic Deficiency and other anemia (1 source) Anemia, unspecified; Translations: [Anemia, unspecified] 06-05-2024 Episodic Diabetes mellitus with complications (1 source) [...] 2 Chronic Other aftercare (1 source) 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; Translations: [OTH SENIOR CARE CURRENT DRUG THERAPY] Onset: 3 Episodic Other aftercare (1 source) custodial (current) use of aspirin; Translations: [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] Onset: 3 Episodic [...] [Hypoxemia] Episodic Other non-epithelial cancer of skin (5 sources) Malignant neoplasm of scalp; Translations: [Unspecified [...] 3 08-20-2023 Episodic Other upper respiratory disease (3 sources) Congestion of nasal sinus; Translations: [Nasal congestion] 05-21-2021 Episodic Other upper respiratory disease (1 source) Nasal congestion; Translations: [Other disease of nasal cavity and sinuses] 06-05-2024 Episodic Pneumonia (except that caused by tuberculosis [...] neoplasm of unspecified lung] Onset: 2 Chronic Secondary malignancies (1 source) Secondary malignant neoplasm of liver; Translations: [Secondary malignant neoplasm of liver and intrahepatic bile duct] 06-05-2024 Chronic Secondary malignancies (2 sources) Secondary malignant neoplasm of liver and intrahepatic bile duct; Translations: [Malignant neoplasm of liver, secondary] Onset: 4 06-05-2024 Chronic Septicemia (except in labor) (1 source) Other specified sepsis; Translations: [OTHER SPECIFIED SEPSIS] Onset: 3 Episodic Shock (1 source) Severe sepsis with septic shock; Translations: [SEVERE SEPSIS WITH SEPTIC SHOCK] Onset: 3 Episodic Thyroid disorders (20 sources) Acquired hypothyroidism; Translations: [Unspecified acquired hypothyroidism] Onset: 3 05-25-2018 Chronic Thyroid disorders (13 sources) Disorder of thyroid gland; Translations: [Unspecified disorder of thyroid] Episodic Viral infection (3 sources) COVID-19; Translations: [COVID-19] [...] occurred!Residual codes; unclassified (20 sources) Disease Episodic Results Test Name Value Interpretation Reference Range Facility AFP Tumor Marker, Serumon AFP Tumor Marker, Serum 2.3 ng/mL Normal 0.0-8.4 [facility] Comment on above: Result Comment: [employer] Electrochemiluminescence Immunoassay (ECLIA) Values obtained with different assay methods or kits cannot be used interchangeably. Results cannot be interpreted as absolute evidence of the presence or absence of malignant disease. This test is not interpretable in females. Performed at: [facility] [id number] Forestry Extension Specialist: Ross Ramirez PhD, Phone: [phone] Performed By: #### C BC, CMP, CEA ####[address]#### AFPTM, CA19 ####[facility] , Carbohydrate Antigen 19-9on 06-10-2024 Carbohydrate Antigen 19-9 71 High 0-35 [facility] Comment on above: Result Comment: [employer] Electrochemiluminescence Immunoassay (ECLIA) Values obtained with different assay methods or kits cannot be used interchangeably. Results cannot be interpreted as absolute evidence of the presence or absence of malignant disease. Performed at: [facility] [id number] Forestry Extension Specialist: Ross Ramirez PhD, Phone: [phone] PERFORMED BY: [place] [address] PATHOLOGIST MANAGER BAR PABLO ZHAO M.D. Performed By: #### C BC, CMP, CEA ####[address]#### AFPTM, CA19 ####[facility] , Complete Blood Count Auto Di ffon 06-10-2024 Basophils (Bld) [#/Vol] 0.0 10*3/uL Normal 0.0-0.2 [facility] Comment on above: Result Comment: PERF ORMED BY: [facility] [place] [address] PATHOLOGIST MANAGER BAR PABLO ZHAO M.D. Performed By: #### C BC, CMP, CEA ####[address]#### AFPTM, CA19 ####[facility] , Basophils/100 WBC (Bld) 0.3 % Normal . T elida [facility] Comment on above: Performed By: #### C BC, CMP, CEA ####[address]#### AFPTM, CA19 ####[facility] , Eosinophils (Bld) [#/Vol] 0.1 10*3/uL Normal 0.0-0.45 [facility] Comment on above: Performed By: #### C BC, CMP, CEA ####[address]#### AFPTM, CA19 ####[facility] , Eosinophils/100 WBC (Bld) 2.2 % Normal . [facility] Comment on above: Performed By: #### C BC, CMP, CEA ####[place] [address] [place]#### AFPTM, CA19 ####[facility] , Erythrocyte distribution width (RBC) [Ratio] 16.5 % High 12.0-14.8 [facility] Comment on above: Performed By: #### C BC, CMP, CEA ####[address] [place] [address] [place]#### AFPTM, CA19 ####[facility] , Hematocrit (Bld) [Volume fraction] 29.5 % Low 38.8-50.0 [facility] Comment on above: Performed By: #### C BC, CMP, CEA ####[address]#### AFPTM, CA19 ####[facility] , Hemoglobin (Bld) [Mass/Vol] 9.5 g/dL Low 13.0-17.0 [facility] Comment on above: Performed By: #### C BC, CMP, CEA ####[address]#### AFPTM, CA19 ####[facility] , Lymphocytes (Bld) [#/Vol] 0.8 10*3/uL Low 1.00-4.8 [facility] Comment on above: Performed By: #### C BC, CMP, CEA ####[address]#### AFPTM, CA19 ####[facility] , Lymphocytes/100 WBC (Bld) 14.7 % Normal . [facility] Comment on above: Performed By: #### C BC, CMP, CEA ####[address]#### AFPTM, CA19 ####[facility] , MCH (RBC) [Entitic mass] 28.4 pg Normal 27.5-35.2 [facility] Comment on above: Performed By: #### C BC, CMP, CEA ####[address]#### AFPTM, CA19 ####[facility] , MCV (RBC) [Entitic vol] 88.3 fL Normal 83.5-101 [facility] Comment on above: Performed By: #### C BC, CMP, CEA ####[place] [address] [place]#### AFPTM, CA19 ####[facility] , Mean Corpuscular HGB Conc 32.2 g/dL Low 32.5-35.6 [facility] Comment on above: Performed By: #### C BC, CMP, CEA ####[place] [address] [place]#### AFPTM, CA19 ####[facility] , Monocytes (Bld) [#/Vol] 0.4 10*3/uL Normal 0.0-0.8 [facility] Comment on above: Performed By: #### C BC, CMP, CEA ####[place] [address] [place]#### AFPTM, CA19 ####[facility] , Monocytes/100 WBC (Bld) 7.4 % Normal . T elida [facility] Comment on above: Performed By: #### C BC, CMP, CEA ####[place] [address] [place]#### AFPTM, CA19 ####[facility] , Neutrophils (Bld) [#/Vol] 4.1 10*3/uL Normal 1.8-7.7 [facility] Comment on above: Performed By: #### C BC, CMP, CEA ####[place] [address] [place]#### AFPTM, CA19 ####[facility] , Neutrophils/100 WBC (Bld) 75.4 % Normal . [facility] Comment on above: Performed By: #### C BC, CMP, CEA ####[place] [address] [place]#### AFPTM, CA19 ####[facility] , NRBC% 0.1 /100{WBC} Normal 0-0.5 [facility] Comment on above: Performed By: #### C BC, CMP, CEA ####[place] [address] [place]#### AFPTM, CA19 ####[facility] , Platelet mean volume (Bld) [Entitic vol] 7.6 fL Normal 6.6-10.1 [facility] Comment on above: Performed By: #### C BC, CMP, CEA ####[place] [address] [place]#### AFPTM, CA19 ####[facility] , Platelets (Bld) [#/Vol] 313 10*3/uL Normal 150-450 [facility] Comment on above: Performed By: #### C BC, CMP, CEA ####[place] [address] [place]#### AFPTM, CA19 ####[facility] , RBC (Bld) [#/Vol] 3.35 10*6/uL Low 3.90-5.60 [facility] Comment on above: Performed By: #### C BC, CMP, CEA ####[address]#### AFPTM, CA19 ####[facility] , WBC (Bld) [#/Vol] 5.5 10*3/uL Normal 4.1-10.5 [facility] Comment on above: Performed By: #### C BC, CMP, CEA ####[place] [address] [place]#### AFPTM, CA19 ####[facility] , Comprehensive Metabolic Pane reid 06-10-2024 Albumin [Mass/Vol] 3.5 g/dL Normal 3.5-5.7 [facility] Comment on above: Performed By: #### C BC, CMP, CEA ####[place] [address] [place]#### AFPTM, CA19 ####[facility] , Albumin/Globulin [Mass ratio] 0.9 {ratio} Normal [facility] Comment on above: Performed By: #### C BC, CMP, CEA ####[place] [address] [place]#### AFPTM, CA19 ####[facility] , ALP [Catalytic activity/Vol] 431 U/L High 34-104 [facility] Comment on above: Performed By: #### C BC, CMP, CEA ####[place] [address] [place]#### AFPTM, CA19 ####[facility] , ALT [Catalytic activity/Vol] 63 U/L High 7-52 [facility] Comment on above: Performed By: #### C BC, CMP, CEA ####[place] [address] [place]#### AFPTM, CA19 ####[facility] , Anion gap [Moles/Vol] 13.3 mmol/L Normal 6.0-15.0 [facility] Comment on above: Performed By: #### C BC, CMP, CEA ####[place] [address] [place]#### AFPTM, CA19 ####[facility] , AST [Catalytic activity/Vol] 68 U/L High 13-39 [facility] Comment on above: Performed By: #### C BC, CMP, CEA ####[place] [address] [place]#### AFPTM, CA19 ####[facility] , Bilirubin [Mass/Vol] 0.3 mg/dL Normal 0.3-1.0 [facility] Comment on above: Performed By: #### C BC, CMP, CEA ####[place] [address] [place]#### AFPTM, CA19 ####[facility] , Calcium [Mass/Vol] 9.2 mg/dL Normal 8.6-10.3 [facility] Comment on above: Performed By: #### C BC, CMP, CEA ####[place] [address] [place]#### AFPTM, CA19 ####[facility] , Chloride [Moles/Vol] 96 mmol/L Low 98-107 [facility] Comment on above: Performed By: #### C BC, CMP, CEA ####[address]#### AFPTM, CA19 ####[facility] , CO2 [Moles/Vol] 33.8 mmol/L High 21.0-31.0 [facility] Comment on above: Performed By: #### C BC, CMP, CEA ####[place] [address] [place]#### AFPTM, CA19 ####[facility] , Creatinine [Mass/Vol] 0.97 mg/dL Normal 0.70-1.30 [facility] Comment on above: Performed By: #### C BC, CMP, CEA ####[place] [address] [place]#### AFPTM, CA19 ####[facility] , Creatinine Clr Calc Pharmacy 53.88 Normal [facility] Comment on above: Result Comment: PERF ORMED BY: [facility] [address] [place] [address] PATHOLOGIST MANAGER BAR PABLO ZHAO M.D. Performed By: #### C BC, CMP, CEA ####[place] [address] [place]#### AFPTM, CA19 ####[facility] , GFR/1.73 sq M.predicted MDRD (S/P/Bld) [Vol rate/Area] mL/min/{1.73_m2} Normal [facility] Comment on above: Performed By: #### C BC, CMP, CEA ####[place] [address] [place]#### AFPTM, CA19 ####[facility] , Globulin (S) [Mass/Vol] 3.8 g/dL Normal T he [facility] Comment on above: Performed By: #### C BC, CMP, CEA ####[place] [address] [place]#### AFPTM, CA19 ####[facility] , Glucose [Mass/Vol] 125 mg/dL High 70-100 [facility] Comment on above: Result Comment: [place] Glucose Reference Range is dependent on time and content of last meal. Glucose of more than 200 mg/dL in a nonstressed, ambulatory subject supports the diagnosis of Diabetes Mellitus. ADA recommended reference range Performed By: #### C BC, CMP, CEA ####[place] [address] [place]#### AFPTM, CA19 ####[facility] , Potassium [Moles/Vol] 4.1 mmol/L Normal 3.5-5.1 [facility] Comment on above: Performed By: #### C BC, CMP, CEA ####[place] [address] [place]#### AFPTM, CA19 ####[facility] , Protein [Mass/Vol] 7.3 g/dL Normal 6.4-8.9 [facility] Comment on above: Performed By: #### C BC, CMP, CEA ####[place] [address] [place]#### AFPTM, CA19 ####[facility] , Sodium [Moles/Vol] 139 mmol/L Normal 136-145 [facility] Comment on above: Performed By: #### C BC, CMP, CEA ####[facility]#### AFPTM, CA19 ####[facility] , Urea nitrogen [Mass/Vol] 20 mg/dL Normal 7-25 [facility] Comment on above: Performed By: #### C BC, CMP, CEA ####[facility] [place] [id number] [facility]#### AFPTM, CA19 ####[facility] , Glucose Poct Glucometerson 0 06-10-2024 Glucose [Mass/Vol] 132 mg/dL Normal [facility] Comment on above: Result Comment: [place] Glucose Reference Range is dependent on time and content of last meal. Glucose of more than 200 mg/dL in a nonstressed, ambulatory subject supports the diagnosis of Diabetes Mellitus. PERFORMED BY: [place] [address] PATHOLOGIST MANAGER BAR PABLO ZHAO M.D. Performed By: #### G LULS ####Point of Care testing, PET tumor init tx strat sb-m [facility] 06-10-2024 PET tumor init tx strat sb-mt [facility] [place] [address] Nuclear Medicine Report Signed Patient: Roxann Rm MR#: [id number] : 1950 Acct:[id number] Age/Sex: 74 / M ADM Date: 06/10/24 Loc: Room: Type: [facility] RCR Attending Dr: Tiffany Escobar MD Copies to: MD Tiffany Springer MD Ordering Provider: Tiffany Escobar MD Date of Service: 06/10/24 PET/PET tumor init tx strat sb-mt: C78.7 - Secondary malignant neoplasm of liver and intrahe... PET/CT WITH FUSION CLINICAL DATA: Cancer of the tongue and colon. Metastatic disease to the liver. COMPARISON: CT 05/22/2024 chest, abdomen or pelvis Following the intravenous administration of 12.5 mCi of FDG, SPECT imaging in 3 planes was performed from the top of the head through the groin. Patient's blood glucose level at the time of injection was 136 mg/dL. Spiral unenhanced CT was also performed for anatomic localization. The PET and CT images were fused. HEAD/NECK: There are postoperative changes involving the floor of the mouth and tongue on the right as well as the neck. There is is mild asymmetric increased FDG uptake at the left neck however it does appear to elongate and may be along the course of the carotid artery on that side. There is carotid artery plaque superior to it on the left and to a lesser extent on the right. There are no other suspected enlarged or hypermetabolic cervical lymph nodes. CHEST: There are several scattered foci of increased FDG uptake within the lungs that correlates with pulmonary nodularity. There is a lesion at the right middle lobe with SUV of 3.3 and the right posterior costophrenic angle with SUV of 4.2. The other lesions have SUV under 2, however this is probably still significant given their size. In addition, there are hypermetabolic mediastinal lymph nodes with SUV measurements up to 4.6 in the subcarinal region. There are also hilar nodes bilaterally that are mildly FDG avid. Reticular nodular changes and honeycombing is again noted at the bases. Calcified pleural plaque is also incidentally noted. ABDOMEN/PELVIS: There are several hypermetabolic hepatic lesions. Uptake at the larger lesions is peripheral. Standard uptake values are in the 6 and 7 range. There are corresponding hypodense m etastatic lesions on CT. There is no adrenal nodularity or increased FDG uptake. There is disproportionate increased FDG uptake at the hepatic flexure with SUV of 6.2. This correlates with the area of concern on patient's outside CT and may be the reported primary colon cancer. Medial to the colon in this area there is some stranding and what a small lymph node with increased FDG uptake and SUV of 2.9, probably metastatic. No other hypermetabolic abdominal or pelvic lymphadenopathy is identified. There is physiologic uptake involving the urinary tract and some additional segments of bowel. A lytic lesion is seen at the right femoral head that is no associated FDG uptake. PET/PET tumor init tx strat sb-mt IMPRESSION: POSTOPERATIVE CHANGES INVOLVING THE RIGHT NECK. SLIGHT INCREASED UPTAKE AT THE LEFT NECK THAT MAY BE ASSOCIATED WITH THE CAROTID ARTERY. MULTIPLE FDG AVID PULMONARY NODULES WELL MEDIASTINAL AND HILAR LYMPH NODES. DIFFUSE HEPATIC METASTATIC DISEASE. DISPROPORTIONATE FDG UPTAKE AT THE HEPATIC FLEXURE WITH AN ADJACENT LYMPH NODE. THIS CORRELATES WITH THE AREA OF CONCERN ON THE PREVIOUS OUTSIDE ABDOMINAL CT AND ALSO LIKELY THE REPORTED COLON NEOPLASM. Impression dictated by: Claire Beaver M.D.06/10/2024 4:33 PM Dictation Location: [facility]- Transcribed By: [facility] 06/10/24 1633 Dictated By: Claire Beaver MD 06/10/24 1600 Signed By: 06/10/24 1633 Normal [facility] SURGICAL PATHOLOGY REFERENCE LAB CONSULTon 06-10-2024 CASE REPORT Normal [facility] Comment on above: Order Comment: Speci men Type: FORMALIN-FIXED PARAFFIN-EMBEDDED TISSUE SPECIMEN Ordering Facility: [facility] Address: [address] [place], [place] [address] Result Comment: Surg ica Pathology Report Case: [id number] Authorizing Provider: Kulwinder Thakkar MD Collected: 06/10/2024 10:06 AM Ordering Location: [facility] Received: 06/10/2024 10:02 AM [facility] Pathologist: Jennifer Zapata MD Specimen: Slide(s), 10 SLIDES([id number]) Performed By: #### L [id number] #### [facility] CLIA [id number] [address] [place] [address] STATES OF [facility] CLINICAL HISTORY CONSULT REQUESTED [facility] Comment on above: Order Comment: Speci men Type: FORMALIN-FIXED PARAFFIN-EMBEDDED TISSUE SPECIMEN Ordering Facility: [facility] Address: [address] [place] [phone] Performed By: #### L [id number] #### [facility] CLIA [id number] [address] [place] [address] [place] DIAGNOSIS COMMENT [facility] Comment on above: Order Comment: Speci men Type: FORMALIN-FIXED PARAFFIN-EMBEDDED TISSUE SPECIMEN Ordering Facility: [facility] Address: [address] [place] [phone] Result Comment: Adolfo k you for allowing us the opportunity to review this case in consultation representing the upper and lower gastrointestinal tract biopsies from this 74-year-old man with a clinical history of erosive esophagitis, anemia, and melena. Colonoscopy was notable for a hepatic flexure mass. Sections of the gastric antral biopsy (part A) demonstrate fragments of antral and oxyntic-type mucosa with expansion of the lamina propria by a chronic inflammatory infiltrate. No neutrophil mediation epithelial injury is seen. Focally, an area of intestinal metaplasia is present. Review of the provided Helicobacter pylori immunohistochemical stain is negative for Helicobacter pylori organisms. Sections of the distal esophagus (part B) demonstrate hyperplastic squamous esophageal mucosa with neutrophilic inflammation and associated epithelial injury, consistent with an active esophagitis. A detached fragment of fibrinopurulent debris is present, consistent with adjacent mucosal ulceration. Review of the provided PAS stain demonstrates scattered fungal yeast forms within the focus of fibrinopurulent debris that could be compatible with Marbella species. No pseudohyphae or infiltration of the squamous esophageal epithelium is noted. Sections of the hepatic flexure mass (part D) demonstrate fragments of dysplastic colonic mucosa characterized by columnar epithelial cells with elongated, hyperchromatic and pseudostratified nuclei that involve the base of the crypts as well as the overlying surface. Areas of increased cytoarchitectural atypia with glandular crowding and increased cytologic atypia with nuclear rounding and loss of nuclear polarity are present. While the majority of the findings are consistent with high-grade dysplasia, focally we appreciate individual infiltrating cells within the lamina propria. While we generally avoid use of the term intramucosal adenocarcinoma in the colon and rectum, in this case, the presence of single individual infiltrating cells in the lamina propria crosses our diagnostic threshold for this diagnosis. As this is a biopsy of a mass lesion, the histologic features would be suspicious for an unsampled invasive process. Correlation with the patient's clinical history, laboratory studies, and imaging findings is recommended. Thank you for sending this case in consultation. Please do not hesitate to contact the GI consultation service at [phone] with questions or if additional follow up information becomes available. This case was reviewed in conjunction with the GI pathology fellow, Meena Ojeda MD. Performed By: #### L [id number] #### [facility] CLIA [id number] [address] [place] [address] [place] FINAL DIAGNOSIS Normal [facility] Comment on above: Order Comment: Speci men Type: FORMALIN-FIXED PARAFFIN-EMBEDDED TISSUE SPECIMEN Ordering Facility: [facility] Address: [address] [place], [place] [address] Result Comment: 1. S tomach, antrum, biopsy (A1-1, A1-2, H. pylori): - Gastric antral and oxyntic-type mucosa with chronic inactive gastritis and intestinal metaplasia. - Negative for Helicobacter pylori organisms. 2. Esophagus, distal, biopsy (B1-1, B1-2, PAS): - Active esophagitis with fibrinopurulent debris. - Fungal yeast forms identified within the fibrinopurulent debris. 3. Esophagus, mid, biopsy (C1-1, C1-2): - Squamous esophageal mucosa with reactive epithelial changes. 4. 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 RS/AURORA 06/11/2024 Performed By: #### L [id number] #### [facility] CLIA [id number] [address] [place] [address] [place] FINAL PERFORMING LAB Normal [facility] Comment on above: Order Comment: Speci men Type: FORMALIN-FIXED PARAFFIN-EMBEDDED TISSUE SPECIMEN Ordering Facility: [facility] Address: [address] [place], [place] [address] Result Comment: Diag nostic interpretation performed at [facility], [address] [place] [address] CLIA# [id number] Wool Hat Finisher: Sav Crowley M.D. Performed By: #### L [id number] #### [facility] CLIA [id number] [address] [place] [address] [place] Reid 05-10-2024 L Specimen: [id number] Received: 05/10/24 Status: MOSHE Escobar Num: [id number] Spec Type: Surgical Subm Dr: Issa Salas DO Tissues: A Stomach - Biopsy/Polyp (ANTRUM) B Esophagus Biopsy (DISTAL ESOPH) C Esophagus Biopsy (MID ESOPH) D Colon Biopsy (HEPATIC FLEXURE) Procedures: PAS - LGRN, HE/8, Gross/Micro L4/4, H PYLORI, IHC First AB Age/ Patient Sex Location Account Attending Physician MailealfredoRoxann 74/M LABE[facility] [id number] Issa Salas DO SPEC NUM: [id number] RECD: 05/10/24 STATUS: MARIBELLLuan ESCOBAR NUM: [id number] NINA: 05/10/[address] [facility] [address]: Issa Salas DO ENTERED: 05/10/[address] [facility] DR: Blake Crouch SPEC TYPE: Surgical DEPT: JANETT AGUILA ORDERED: PAS - LGRN, HE/8, Gross/Micro L4/4, H PYLORI, IHC First AB ORDERED: PAS - LGRN, HE/8, Gross/Micro L4/4, H PYLORI, IHC First AB Supplemental Report Addendum 1 Entered: 06/12/24 Supplemental for findings of consultation report from CC: A, gastric antrum biopsy: -Gastric antral and oxyntic type mucosa with chronic inactive gastritis and intestinal metaplasia -Negative for Helicobacter pylori organisms B, distal esophagus biopsy: -Active esophagitis with fibrinopurulent debris -Fungal yeast forms identified within the fibrinopurulent debris C, mid esophagus biopsy: -Squamous esophageal mucosa with reactive epithelial changes D, hepatic flexure colon mass biopsy -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, see comment Specimen: [id number] Received: 05/10/24 Status: MARIBELLLuan Escobar Num: [id number] Spec Type: Surgical Subm Dr: Issa Salas DO Tissues: A Stomach - Biopsy/Polyp (ANTRUM) B Esophagus Biopsy (DISTAL ESOPH) C Esophagus Biopsy (MID ESOPH) D Colon Biopsy (HEPATIC FLEXURE) Procedures: PAS - LGRN, HE/8, Gross/Micro L4/4, H PYLORI, IHC First AB Patient: SujeyRoxann [id number] (Continued) Specimen: [id number] Received: 05/10/24 (Continued) Supplemental Report (Continued) Signed (signature on file) Hilda Thakkar MD 05/14/24 1657 Specimen: [id number] Received: 05/10/24 Status: MOSHE Escobar Num: [id number] Spec Type: Surgical Subm Dr: Issa Salas DO Tissues: A Stomach - Biopsy/Polyp (ANTRUM) B Esophagus Biopsy (DISTAL ESOPH) C Esophagus Biopsy (MID ESOPH) D Colon Biopsy (HEPATIC FLEXURE) Procedures: PAS - LGRN, HE/8, Gross/Micro L4/4, H PYLORI, IHC First AB Patient: Roxann Rm [id number] (Continued) Specimen: [id number] Received: 05/10/24-1305 (Continued) Supplemental Report (Continued) Addendum Signed (signature on file) Kulwinder-Memo Thakkar MD 06/12/24 1313 Pathological Diagnosis A, antrum biopsy: -Antral to [...] stromal invasion in at least 1 fragment Clinical Information Anemia, melena, right colon mass, erosive esophagitis. Gross Description Received are 4 formalin filled containers each labeled with the patient's name, date of and specific specimen site. A. Further labeled antrum are 2 reynolds mucosal tissue fragments each measuring 0.3 x 0.3 x 0.1 cm, entirely submitted in A1. Specimen: [id number] Received: 05/10/24 Status: MOSHE Nietoelvia Num: [id number] Spec Type: Surgical Subm Dr: Issa Salas, Tissues: A Stomach - Biopsy/Polyp (ANTRUM) B Esophagus Biopsy (DISTAL ESOPH) C Esophagus Biopsy (MID ESOPH) D Colon (more content not included)... Normal [facility] Automated basophil %Ordered By: Tiffany Escobar on 12-18-2023 Basophils/100 WBC (Bld) 0.4 % Normal . [facility] Comment on above: Performed By: #### C BC ####[place] [id number] [address] Automated basophil countOrde red By: Tiffany Escobar on 12-18-2023 Basophils (Bld) [#/Vol] 0.0 10*3/uL Normal 0.0-0.2 [facility] Comment on above: Result Comment: PERF ORMED BY: [facility] [address] [place] [id number] PATHOLOGIST MANAGER BAR PABLO ZHAO M.D. Performed By: #### C BC ####[place] [id number] [address] Automated blood monocyte cou ntOrdered By: lubna Ha-Kymari on 12-18-2023 Monocytes (Bld) [#/Vol] 0.5 10*3/uL Normal 0.0-0.8 [facility] Comment on above: Performed By: #### C BC ####[address] Automated eosinophil %Ordere d By: [facility] Adrian-Kymari on 12-18-2023 Eosinophils/100 WBC (Bld) 9.0 % Normal . [facility] Comment on above: Performed By: #### C BC ####[address] Automated eosinophil countOr dered By: [facility] Jose Juanari on 12-18-2023 Eosinophils (Bld) [#/Vol] 0.5 10*3/uL High 0.0-0.45 [facility] Comment on above: Performed By: #### C BC ####[address] Automated monocyte %Ordered By: [facility] 12-[facility]-2023 Monocytes/100 WBC (Bld) 8.2 % Normal . [facility] Comment on above: Performed By: #### C BC ####[address] Automated neutrophil %Ordere d By: [facility] on 12-18-2023 Neutrophils/100 WBC (Bld) 60.7 % Normal . [facility] Comment on above: Performed By: #### C BC ####[place] [id number] [facility] Complete Blood Count Auto Di ffon 12-18-2023 Mean Corpuscular HGB Conc 33.2 g/dL Normal 32.5-35.6 [facility] Comment on above: Performed By: #### C BC ####[place] [id number] [facility] NRBC% 0.0 /100{WBC} Normal 0-0.5 [facility] Comment on above: Performed By: #### C BC ####[place] [id number] [facility] Erythrocyte distribution wid th [Ratio] by Automated countOrdered By: lubna Maloney on 12-18-2023 Erythrocyte distribution width (RBC) [Ratio] 15.8 % High 12.0-14.8 [facility] Comment on above: Performed By: #### C BC ####[address] Erythrocytes [#/volume] in B lood by Automated countOrdered By: lubna Escobar on 12-18-2023 RBC (Bld) [#/Vol] 3.61 10*6/uL Low 3.90-5.60 [facility] Comment on above: Performed By: #### C BC ####[address] Hematocrit [Volume Fraction] of Blood by Automated countOrdered By: lubna Maloney on 12-18-2023 Hematocrit (Bld) [Volume fraction] 35.1 % Low 38.8-50.0 [facility] Comment on above: Performed By: #### C BC ####[address] Hemoglobin [Mass/volume] in BloodOrdered By: lubna Escobar on 12-18-2023 Hemoglobin (Bld) [Mass/Vol] 11.6 g/dL Low 13.0-17.0 [facility] Comment on above: Performed By: #### C BC ####[address] Leukocytes [#/volume] correc emilio for nucleated erythrocytes in Blood by Automated counOrdered By: lubna Escobar on 12-18-2023 WBC corrected for nucl RBC Auto (Bld) [#/Vol] 5.8 10*3/uL 4.1-10.5 [facility] Leukocytes [#/volume] in Blo od by Automated countOrdered By: lubna Escobar on 12-18-2023 WBC (Bld) [#/Vol] 5.8 10*3/uL Normal 4.1-10.5 [facility] Comment on above: Performed By: #### C BC ####[address] Lymphocytes [#/volume] in Bl ood by Automated countOrdered By: lubna Escobar on 12-18-2023 Lymphocytes (Bld) [#/Vol] 1.3 10*3/uL Normal 1.00-4.8 [facility] Comment on above: Performed By: #### C BC ####[address] Lymphocytes/100 leukocytes i n Blood by Automated countOrdered By: lubna Escobar on 12-18-2023 Lymphocytes/100 WBC (Bld) 21.7 % Normal . [facility] Comment on above: Performed By: #### C BC ####[address] MCH [Entitic mass] by Automa emilio countOrdered By: lubna Escobar on 12-18-2023 MCH (RBC) [Entitic mass] 32.2 pg Normal 27.5-35.2 [facility] Comment on above: Performed By: #### C BC ####[address] MCHC Auto (RBC) [Mass/Vol]Or dered By: Tiffany Escobar on 12-18-2023 MCHC (RBC) [Mass/Vol] 33.2 g/dL 32.5-35.6 [facility] MCV [Entitic volume] by Auto mated countOrdered By: lubna Escobar on 12-18-2023 MCV (RBC) [Entitic vol] 97.0 fL Normal 83.5-101 [facility] Comment on above: Performed By: #### C BC ####[address] Neutrophils [#/volume] in Bl ood by Automated countOrdered By: lubna Escobar on 12-18-2023 Neutrophils (Bld) [#/Vol] 3.5 10*3/uL Normal 1.8-7.7 [facility] Comment on above: Performed By: #### C BC ####[address] Nucleated erythrocytes [Pres ence] in Blood by Automated countOrdered By: [facility] Luz on 12-18-2023 Nucleated RBC Auto Ql (Bld) 0.0 /100{WBC} 0-0.5 [facility] Platelet mean volume [Entiti c volume] in Blood by Automated countOrdered By: lubna VtWill on 12-18-2023 Platelet mean volume (Bld) [Entitic vol] 7.0 fL Normal 6.6-10.1 [facility] Comment on above: Performed By: #### C BC ####[place] [id number] [facility] Platelets [#/volume] in Bloo d by Automated countOrdered By: [facility] on 12-18-2023 Platelets (Bld) [#/Vol] 196 10*3/uL Normal 150-450 [facility] Comment on above: Performed By: #### C BC ####[address] Acanthocytes [Presence] in B lood by Light microscopyOrdered By: lubna Escobar on 09-21-2023 Acanthocytes LM Ql (Bld) Slight [facility] Anisocytosis [Presence] in B lood by Light microscopyOrdered By: [facility] HospitalHaider on 09-21-2023 Anisocytosis Ql (Bld) Slight Normal [facility] Comment on above: Performed By: #### D IFF CBC ####[place] [id number] [facility] Diff and CBCon 09-21-2023 Acanthocytes Slight Normal [facility] Comment on above: Performed By: #### D IFF CBC ####[place] [address] [place] Erythrocyte distribution width (RBC) [Ratio] 19.3 % High 12.0-14.8 [facility] Comment on above: Performed By: #### D IFF CBC ####[address] Hematocrit (Bld) [Volume fraction] 34.2 % Low 38.8-50.0 [facility] Comment on above: Performed By: #### D IFF CBC ####[address] Hemoglobin (Bld) [Mass/Vol] 11.1 g/dL Low 13.0-17.0 [facility] Comment on above: Performed By: #### D IFF CBC ####[address] MCH (RBC) [Entitic mass] 30.5 pg Normal 27.5-35.2 [facility] Comment on above: Performed By: #### D IFF CBC ####[address] MCV (RBC) [Entitic vol] 93.9 fL Normal 83.5-101 [facility] Comment on above: Performed By: #### D IFF CBC ####[address] Mean Corpuscular HGB Conc 32.5 g/dL Normal 32.5-35.6 [facility] Comment on above: Performed By: #### D IFF CBC ####[address] Microcytosis Slight Normal [facility] Comment on above: Performed By: #### D IFF CBC ####[address] Ovalocytes Slight Normal [facility] Comment on above: Performed By: #### D IFF CBC ####[address] Platelet Estimate Decreased Normal Normal [facility] Comment on above: Performed By: #### D IFF CBC ####[address] [address] [facility] Platelet mean volume (Bld) [Entitic vol] 6.9 fL Normal 6.6-10.1 [facility] Comment on above: Performed By: #### D IFF CBC ####[place] [id number] [facility] Platelet Morphology Normal Normal Normal [facility] Comment on above: Result Comment: PERF ORMED BY: [facility] [address] [place] [address] PATHOLOGIST MANAGER BAR PABLO ZHAO M.D. Performed By: #### D IFF CBC ####[place] [id number] [facility] Platelets (Bld) [#/Vol] 134 10*3/uL Low 150-450 [facility] Comment on above: Performed By: #### D IFF CBC ####[place] [id number] [facility] Poikilocytosis Slight Normal [facility] Comment on above: Performed By: #### D IFF CBC ####[place] [id number] [facility] Polychromasia Slight Normal [facility] Comment on above: Performed By: #### D IFF CBC ####[place] [id number] [facility] RBC (Bld) [#/Vol] 3.65 10*6/uL Low 3.90-5.60 [facility] Comment on above: Performed By: #### D IFF CBC ####[place] [id number] [facility] Schistocytes Slight Normal [facility] Comment on above: Performed By: #### D IFF CBC ####[place] [id number] [facility] WBC (Bld) [#/Vol] 3.5 10*3/uL Low 4.1-10.5 [facility] Comment on above: Performed By: #### D IFF CBC ####[place] [id number] [place] [address] [facility] Eosinophils/100 leukocytes i n Blood by Manual countOrdered By: Tiffany Escobar on 09-21-2023 Eosinophils/100 WBC (Bld) 6 % High 1-3 [facility] Comment on above: Performed By: #### D IFF CBC ####[place] [id number] [place] [address] [facility] Lymphocytes/100 leukocytes i n Blood by Manual countOrdered By: Tiffany Ha-Haider on 09-21-2023 Lymphocytes/100 WBC (Bld) 31 % Normal 18-42 [facility] Comment on above: Performed By: #### D IFF CBC ####[place] [id number] [place] [address] [facility] Manual blood segmented neutr ophils/100 leukocytesOrdered By: Tiffany Escobar on 09-21-2023 Segmented neutrophils/100 WBC (Bld) 58 % Normal 50-70 [facility] Comment on above: Performed By: #### D IFF CBC ####[address] [address] [facility] Microcytes LM Ql (Bld)Ordere d By: Tiffany Escobar on 09-21-2023 Microcytes Ql (Bld) Slight [facility] Monocytes/100 leukocytes in Blood by Manual countOrdered By: Tiffany Escobar on 09-21-2023 Monocytes/100 WBC (Bld) 6 % Normal 2-11 [facility] Comment on above: Performed By: #### D IFF CBC ####[place] [id number] [place] [address] [facility] Ovalocyte detectionOrdered B y: Tiffany Escobar on 09-21-2023 Ovalocytes LM Ql (Bld) Slight [facility] Platelet adequacy [Presence] in Blood by Light microscopyOrdered By: Tiffany Maloney on 09-21-2023 Platelets LM Ql (Bld) Decreased Normal [facility] Platelet morphology finding [Identifier] in BloodOrdered By: Tiffany Escobar on 09-21-2023 Platelet morphology finding Nom (Bld) Normal Normal [facility] Poikilocytosis [Presence] in Blood by Light microscopyOrdered By: Tiffany Escobar on 09-21-2023 Poikilocytosis LM Ql (Bld) Slight [facility] Polychromasia [Presence] in Blood by Light microscopyOrdered By: Tiffany Escobar on 09-21-2023 Polychromasia LM Ql (Bld) Slight [facility] RBC morphologyOrdered By: Wanda Escobar on 09-21-2023 RBC morphology finding Nom (Bld) N/A [facility] Schistocytes [Presence] in B lood by Light microscopyOrdered By: Tiffany Escobar on 09-21-2023 Schistocytes LM Ql (Bld) [facility] Absolute reticulocyte countO rdered By: Tfifany Escobar on 06-21-2023 Reticulocytes (Bld) [#/Vol] 0.065 10*6/uL 0.024-0.08 4 [facility] Alanine aminotransferase [En zymatic activity/volume] in Serum or PlasmaOrdered By: Tiffany Escobar on 06-21-2023 ALT [Catalytic activity/Vol] 9 U/L Normal 7-52 [facility] Comment on above: Performed By: #### C MP, LDH, FE and TIBC, [id number], CBC, RETIC, HAPT #### [facility] [address] [place] [address] #### CU #### [facility] , Albumin [Mass/volume] in Ser um or Plasma by Bromocresol green (BCG) dye binding methoOrdered By: Tiffany Escobar on 06-21-2023 Albumin BCG dye [Mass/Vol] 4.1 g/dL 3.5-5.7 [facility] Alkaline phosphatase [Enzyma tic activity/volume] in Serum or PlasmaOrdered By: Tiffany Escobar on 06-21-2023 ALP [Catalytic activity/Vol] 69 U/L Normal 34-104 [facility] Comment on above: Performed By: #### C MP, LDH, FE and TIBC, [id number], CBC, RETIC, HAPT #### [facility] [address] [place] [address] [place] #### CU #### [facility] , Aspartate aminotransferase [ Enzymatic activity/volume] in Serum or PlasmaOrdered By: Tiffany Escobar on 06-21-2023 AST [Catalytic activity/Vol] 14 U/L Normal 13-39 [facility] Comment on above: Performed By: #### C MP, LDH, FE and TIBC, [id number], CBC, RETIC, HAPT #### [facility] [address] [place] [address] [place] #### CU #### [facility] , Basophil percentageOrdered B y: Tiffany Escobar on 06-21-2023 Basophil percentage 128 ug/dL 69-132 [facility] Comment on above: This test was develo ped and its performance characteristicsdetermined by mobifriends. It has not been cleared orapproved by the Food and Drug Administration. Detection Limit = 5Performed at: [facility] [employer] [id number] Director: Haja Schmitt MD, Phone: [phone] Bilirubin Test strip Ql (U)O rdered By: Tiffany Escobar on 06-21-2023 Bilirubin Ql (U) Negative Negative [facility] Bilirubin.total [Mass/volume ] in Serum or PlasmaOrdered By: Tiffany Escobar on 06-21-2023 Bilirubin [Mass/Vol] 0.5 mg/dL Normal 0.3-1.0 [facility] Comment on above: Performed By: #### C MP, LDH, FE and TIBC, [id number], CBC, RETIC, HAPT #### [facility] [address] [place] [address] [place] #### CU #### [facility] , Calcium [Mass/volume] in Ser um or PlasmaOrdered By: Tiffany Escobar on 06-21-2023 Calcium [Mass/Vol] 9.5 mg/dL Normal 8.6-10.3 [facility] Comment on above: Performed By: #### C MP, LDH, FE and TIBC, [id number], CBC, RETIC, HAPT #### [address] #### CU #### [facility] , Carbon dioxide, total [Moles /volume] in Serum or PlasmaOrdered By: Tiffany Maloney on 06-21-2023 CO2 [Moles/Vol] 32.6 mmol/L High 21.0-31.0 [facility] Comment on above: Performed By: #### C MP, LDH, FE and TIBC, [id number], CBC, RETIC, HAPT #### [address] #### CU #### [facility] , Chloride [Moles/volume] in S vic or PlasmaOrdered By: lubna Escobar on 06-21-2023 Chloride [Moles/Vol] 100 mmol/L Normal 98-107 [facility] Comment on above: Performed By: #### C MP, LDH, FE and TIBC, [id number], CBC, RETIC, HAPT #### [address] #### CU #### [facility] , Color of Urine by AutoOrdere d By: lubna Escobar on 06-21-2023 Color (U) Yellow Normal Yellow [facility] Comment on above: Order Comment: Name Collection Type:: Voided Performed By: #### U A ####[address] Complete Blood Count Auto Di ffon 06-21-2023 Basophils (Bld) [#/Vol] 0.0 10*3/uL Normal 0.0-0.2 [facility] Comment on above: Performed By: #### C MP, LDH, FE and TIBC, [id number], CBC, RETIC, HAPT #### [address] #### CU #### [facility] , Basophils/100 WBC (Bld) 1.0 % Normal . [facility] [place] [facility] Comment on above: Performed By: #### C MP, LDH, FE and TIBC, [id number], CBC, RETIC, HAPT #### [place] [address] [place] #### CU #### [facility] , Eosinophils (Bld) [#/Vol] 0.3 10*3/uL Normal 0.0-0.45 [facility] Comment on above: Performed By: #### C MP, LDH, FE and TIBC, [id number], CBC, RETIC, HAPT #### [place] [address] [place] #### CU #### [facility] , Eosinophils/100 WBC (Bld) 7.9 % Normal . [facility] Comment on above: Performed By: #### C MP, LDH, FE and TIBC, [id number], CBC, RETIC, HAPT #### [address] #### CU #### [facility] , Erythrocyte distribution width (RBC) [Ratio] 19.1 % High 12.0-14.8 [facility] Comment on above: Performed By: #### C MP, LDH, FE and TIBC, [id number], CBC, RETIC, HAPT #### [place] [address] [place] #### CU #### [facility] , Hematocrit (Bld) [Volume fraction] 31.5 % Low 38.8-50.0 [facility] Comment on above: Performed By: #### C MP, LDH, FE and TIBC, [id number], CBC, RETIC, HAPT #### [place] [address] [place] #### CU #### [facility] , Hemoglobin (Bld) [Mass/Vol] 9.7 g/dL Low 13.0-17.0 [facility] Comment on above: Performed By: #### C MP, LDH, FE and TIBC, [id number], CBC, RETIC, HAPT #### [place] [address] [place] #### CU #### [facility] , Lymphocytes (Bld) [#/Vol] 1.0 10*3/uL Normal 1.00-4.8 [facility] Comment on above: Performed By: #### C MP, LDH, FE and TIBC, [id number], CBC, RETIC, HAPT #### [place] [address] [place] #### CU #### [facility] , Lymphocytes/100 WBC (Bld) 26.4 % Normal . [facility] Comment on above: Performed By: #### C MP, LDH, FE and TIBC, [id number], CBC, RETIC, HAPT #### [place] [address] [place] #### CU #### [facility] , MCH (RBC) [Entitic mass] 23.9 pg Low 27.5-35.2 [facility] Comment on above: Performed By: #### C MP, LDH, FE and TIBC, [id number], CBC, RETIC, HAPT #### [place] [address] [place] #### CU #### [facility] , MCV (RBC) [Entitic vol] 78.1 fL Low 83.5-101 [facility] Comment on above: Performed By: #### C MP, LDH, FE and TIBC, [id number], CBC, RETIC, HAPT #### [address] [address] [place] #### CU #### [facility] , Mean Corpuscular HGB Conc 30.6 g/dL Low 32.5-35.6 [facility] Comment on above: Performed By: #### C MP, LDH, FE and TIBC, [id number], CBC, RETIC, HAPT #### [place] [address] [place] #### CU #### [facility] , Monocytes (Bld) [#/Vol] 0.5 10*3/uL Normal 0.0-0.8 [facility] Comment on above: Performed By: #### C MP, LDH, FE and TIBC, [id number], CBC, RETIC, HAPT #### [address] #### CU #### [facility] , Monocytes/100 WBC (Bld) 12.1 % Normal . T [facility] Comment on above: Performed By: #### C MP, LDH, FE and TIBC, [id number], CBC, RETIC, HAPT #### [place] [address] [place] #### CU #### [facility] , Neutrophils (Bld) [#/Vol] 2.0 10*3/uL Normal 1.8-7.7 [facility] Comment on above: Performed By: #### C MP, LDH, FE and TIBC, [id number], CBC, RETIC, HAPT #### [place] [address] [place] #### CU #### [facility] , Neutrophils/100 WBC (Bld) 52.6 % Normal . [facility] Comment on above: Performed By: #### C MP, LDH, FE and TIBC, [id number], CBC, RETIC, HAPT #### [place] [address] [place] #### CU #### [facility] , NRBC% 0.4 /100{WBC} Normal 0-0.5 [facility] Comment on above: Performed By: #### C MP, LDH, FE and TIBC, [id number], CBC, RETIC, HAPT #### [address] #### CU #### [facility] , Platelet mean volume (Bld) [Entitic vol] 7.1 fL Normal 6.6-10.1 [facility] Comment on above: Performed By: #### C MP, LDH, FE and TIBC, [id number], CBC, RETIC, HAPT #### [place] [address] [place] #### CU #### [facility] , Platelets (Bld) [#/Vol] 191 10*3/uL Normal 150-450 [facility] Comment on above: Performed By: #### C MP, LDH, FE and TIBC, [id number], CBC, RETIC, HAPT #### [place] [address] [place] #### CU #### [facility] , RBC (Bld) [#/Vol] 4.04 10*6/uL Normal 3.90-5.60 [facility] Comment on above: Performed By: #### C MP, LDH, FE and TIBC, [id number], CBC, RETIC, HAPT #### [place] [address] [place] #### CU #### [facility] , WBC (Bld) [#/Vol] 3.8 10*3/uL Low 4.1-10.5 [facility] Comment on above: Performed By: #### C MP, LDH, FE and TIBC, [id number], CBC, RETIC, HAPT #### [place] [address] [place] #### CU #### [facility] , Comprehensive Metabolic Pane reid 06-21-2023 Albumin [Mass/Vol] 4.1 g/dL Normal 3.5-5.7 [facility] Comment on above: Performed By: #### C MP, LDH, FE and TIBC, [id number], CBC, RETIC, HAPT #### [place] [address] [place] #### CU #### [facility] , Creatinine Clr Calc Pharmacy 59.93 Normal [facility] Comment on above: Performed By: #### C MP, LDH, FE and TIBC, [id number], CBC, RETIC, HAPT #### [address] #### CU #### [facility] , GFR/1.73 sq M.predicted MDRD (S/P/Bld) [Vol rate/Area] mL/min/{1.73_m2} Normal [facility] Comment on above: Performed By: #### C MP, LDH, FE and TIBC, [id number], CBC, RETIC, HAPT #### [place] [address] [place] #### CU #### [facility] , Copperon 06-21-2023 Copper 128 ug/dL Normal 69-132 [facility] Comment on above: Result Comment: This test was developed and its performance characteristics determined by [facility]. It has not been cleared or approved by the Food and Drug Administration. Detection Limit = 5 Performed at: [address] [id number] [employer] Specialist: Haja Schmitt MD, Phone: [phone] PERFORMED BY: [place] [address] PATHOLOGIST MANAGER BAR PABLO ZHAO M.D. Performed By: #### C MP, LDH, FE and TIBC, [id number], CBC, RETIC, HAPT #### [address] [place] [address] [place] #### CU #### [facility] , Creatinine [Mass/volume] in Serum or PlasmaOrdered By: Tiffany Escobar on 06-21-2023 Creatinine [Mass/Vol] 1.03 mg/dL Normal 0.70-1.30 [facility] Comment on above: Performed By: #### C MP, LDH, FE and TIBC, [id number], CBC, RETIC, HAPT #### [facility] [address] [place] [address] [place] #### CU #### [facility] , Fecal occult blood detection by immunochemistryOrdered By: Tiffany Escobar on 06-21-2023 Hemoglobin.gastrointest inal Ql (Stl) [facility] Ferritin [Mass/volume] in Se rum or PlasmaOrdered By: Tiffany Escobar on 06-21-2023 Ferritin [Mass/Vol] 59.0 ng/mL Normal 23.9-336.2 [facility] Comment on above: Order Comment: Comme nt on blood already drawn Result Comment: PERF ORMED BY: [place] [address] PATHOLOGIST MANAGER BAR PABLO ZHAO M.D. Performed By: #### C MP, LDH, FE and TIBC, [id number], CBC, RETIC, HAPT #### [facility] [address] [place] [address] [place] #### CU #### [facility] , Folate [Mass/volume] in Seru m or PlasmaOrdered By: Tiffany Escobar on 06-21-2023 Folate [Mass/Vol] 22.0 ng/mL >5.9 [facility] Comment on above: Folate reference ran ge: >5.9 ng/mlThe WHO technical consultation on folate and vitamin [id number] has determined that folate concentrations lessthan 4 ng/ml are considered deficient. Glucose [Mass/volume] in Ser um or PlasmaOrdered By: Tiffany Escobar on 06-21-2023 Glucose [Mass/Vol] 127 mg/dL High 70-100 [facility] Comment on above: ADA recommended refe rence rangeRandom Glucose Reference Range is dependent on time and content of last meal. Glucose of more than 200 mg/dL in a nonstressed, ambulatory subject supports the diagnosis of Diabetes Mellitus. Result Comment: [place] om Glucose Reference Range is dependent on time and content of last meal. Glucose of more than 200 mg/dL in a nonstressed, ambulatory subject supports the diagnosis of Diabetes Mellitus. ADA recommended reference range Performed By: #### C MP, LDH, FE and TIBC, [id number], CBC, RETIC, HAPT #### [address] #### CU #### [facility] , Haptoglobinon 06-21-2023 Haptoglobin 332 mg/dL High 44-215 [facility] Comment on above: Result Comment: PERF ORMED BY: [place] [address] PATHOLOGIST MANAGER BAR PABLO ZHAO M.D. Performed By: #### C MP, LDH, FE and TIBC, [id number], CBC, RETIC, HAPT #### [address] #### CU #### [facility] , Haptoglobin [Mass/volume] in Serum or PlasmaOrdered By: d Al-Marrawi on 06-21-2023 Haptoglobin [Mass/Vol] 332 mg/dL High 44-215 [facility] Iron [Mass/volume] in Serum or PlasmaOrdered By: d Al-Marrawi on 06-21-2023 Iron [Mass/Vol] 38 ug/dL Low 50-212 [facility] Comment on above: Performed By: #### C MP, LDH, FE and TIBC, [id number], CBC, RETIC, HAPT #### [place] [address] [place] #### CU #### [facility] , Iron and TIBC Profileon 05-28 % Iron Saturation 8.0 % Low 20-50 [facility] Comment on above: Performed By: #### C MP, LDH, FE and TIBC, [id number], CBC, RETIC, HAPT #### [facility] [address] [place] [address] [place] #### CU #### [facility] , Total Iron Binding Capacity 475 ug/dL High 255-450 [facility] Comment on above: Performed By: #### C MP, LDH, FE and TIBC, [id number], CBC, RETIC, HAPT #### [facility] [address] [place] [address] [place] #### CU #### [facility] , Iron binding capacity [Mass/ volume] in Serum or PlasmaOrdered By: Tiffany Escobar on 06-21-2023 Iron binding capacity [Mass/Vol] 475 ug/dL High 255-450 [facility] Iron saturation [Mass Fracti on] in Serum or PlasmaOrdered By: lubna Ha-Haider on 06-21-2023 Iron saturation [Mass fraction] 8.0 % Low 20-50 [facility] Ketones Auto test strip (U) [Mass/Vol]Ordered By: lubna Ha-Haider on 06-21-2023 Ketones (U) [Mass/Vol] Negative Negative [facility] LDH Lactate Dehydrogenaseon 06-21-2023 LDH Lactate Dehydrogenase 139 U/L Low 140-271 [facility] Comment on above: Performed By: #### C MP, LDH, FE and TIBC, [id number], CBC, RETIC, HAPT #### [facility] [address] [place] [address] [place] #### CU #### [facility] , Lactate dehydrogenase [Enzym atic activity/volume] in Serum or Plasma by Lactate to pyOrdered By: Tiffany aH-Haider on 06-21-2023 LDH Lactate to pyruvate reaction [Catalytic activity/Vol] 139 U/L Low 140-271 [facility] Nitrite Test strip Ql (U)Ord ered By: Tiffany Escobar on 06-21-2023 Nitrite Ql (U) Negative Negative [facility] No Panel InformationOrdered By: Tiffany Escobar on 06-21-2023 Estimated GFR (CKD-EPI) > 60.0 mL/Min [facility] Creatinine Clearance (Chem 59.93 [facility] Potassium [Moles/volume] in Serum or PlasmaOrdered By: Tiffany Escobar on 06-21-2023 Potassium [Moles/Vol] 3.8 mmol/L Normal 3.5-5.1 [facility] Comment on above: Performed By: #### C MP, LDH, FE and TIBC, [id number], CBC, RETIC, HAPT #### [facility] [address] [place] [address] #### CU #### [facility] , Protein Auto test strip (U) [Mass/Vol]Ordered By: Tiffany JamieNeelimasue on 06-21-2023 Protein (U) [Mass/Vol] Negative Negative [facility] Protein [Mass/volume] in Ser um or PlasmaOrdered By: lubna Dominiksue on 06-21-2023 Protein [Mass/Vol] 7.2 g/dL Normal 6.4-8.9 [facility] Comment on above: Performed By: #### C MP, LDH, FE and TIBC, [id number], CBC, RETIC, HAPT #### [facility] [address] [place] [address] [place] #### CU #### [facility] , Reticulocyte Counton 023 Reticulocyte Number 0.065 10*6/uL Normal 0.024-0 .08 4 [facility] Comment on above: Result Comment: PERF ORMED BY: [place] [address] PATHOLOGIST MANAGER BAR PABLO ZHAO M.D. Performed By: #### C MP, LDH, FE and TIBC, [id number], CBC, RETIC, HAPT #### [facility] [address] [place] [address] [place] #### CU #### [facility] , Reticulocyte Percent 1.6 % High 0.5-1.5 [facility] Comment on above: Performed By: #### C MP, LDH, FE and TIBC, [id number], CBC, RETIC, HAPT #### [facility] [address] [place] [address] [place] #### CU #### [facility] , Reticulocytes/100 RBC Auto ( Bld)Ordered By: lbuna Escobar on 06-21-2023 Reticulocytes/100 RBC (Bld) 1.6 % High 0.5-1.5 [facility] Serum globulin measurement b y calculation (mass/volume)Ordered By: lubna Maloney on 06-21-2023 Globulin (S) [Mass/Vol] 3.1 g/dL Normal [facility] Comment on above: Performed By: #### C MP, LDH, FE and TIBC, [id number], CBC, RETIC, HAPT #### [facility] [address] [place] [address] [place] #### CU #### [facility] , Serum or plasma albumin/glob ulin mass ratioOrdered By: lubna Escobar on 06-21-2023 Albumin/Globulin [Mass ratio] 1.3 {ratio} Normal [facility] Comment on above: Performed By: #### C MP, LDH, FE and TIBC, [id number], CBC, RETIC, HAPT #### [facility] [address] [place] [address] [place] #### CU #### [facility] , Serum or plasma anion gap de terminationOrdered By: lubna Escobar on 06-21-2023 Anion gap [Moles/Vol] 12.2 mmol/L Normal 6.0-15.0 [facility] Comment on above: Performed By: #### C MP, LDH, FE and TIBC, [id number], CBC, RETIC, HAPT #### [facility] [address] #### CU #### [facility] , Sodium [Moles/volume] in Ser um or PlasmaOrdered By: Tiffany Escobar on 06-21-2023 Sodium [Moles/Vol] 141 mmol/L Normal 136-145 [facility] Comment on above: Performed By: #### C MP, LDH, FE and TIBC, [id number], CBC, RETIC, HAPT #### [facility] [address] #### CU #### [facility] , Specific gravity Auto test s trip (U) [Rel density]Ordered By: Tiffany Escobar on 06-21-2023 Specific gravity (U) [Rel density] 1.028 1.001-1.03 0 [facility] Stool Occult Blood (Guaiac)o n 06-21-2023 Stool Occult Blood (Guaiac) Occult Blood Negative for Occult Blood by Guaiac Methodology ---- Reference range = Negative PERFORMED BY: [place] [address] PATHOLOGIST MANAGER BAR PABLO ZHAO M.D. Normal [facility] Comment on above: Performed By: #### O B(GUAIAC) ####[place] [id number] [address] Transferrin [Mass/volume] in Serum or PlasmaOrdered By: Tiffany Escobar on 06-21-2023 Transferrin [Mass/Vol] 339 mg/dL Normal 203-362 [facility] Comment on above: Performed By: #### C MP, LDH, FE and TIBC, [id number], CBC, RETIC, HAPT #### [facility] [address] [place] [address] #### CU #### [facility] , Urea nitrogen [Mass/volume] in Serum or PlasmaOrdered By: Tiffany Escobar on 06-21-2023 Urea nitrogen [Mass/Vol] 16 mg/dL Normal 7-25 [facility] Comment on above: Performed By: #### C MP, LDH, FE and TIBC, [id number], CBC, RETIC, HAPT #### [facility] [address] #### CU #### [facility] , Urinalysison 06-21-2023 Appearance (U) Clear Normal Clear [facility] Comment on above: Order Comment: Name Collection Type:: Voided Performed By: #### U A ####[address] Bilirubin,Urine Negative Normal Negative [facility] Comment on above: Order Comment: Name Collection Type:: Voided Performed By: #### U A ####[address] Glucose Ql (U) >=1000 High Normal [facility] Comment on above: Order Comment: Name Collection Type:: Voided Performed By: #### U A ####[address] Ketones Ql (U) Negative Normal Negative [facility] Comment on above: Order Comment: Name Collection Type:: Voided Performed By: #### U A ####[address] Leukocyte esterase Test strip Ql (U) Negative Normal Negative [facility] Comment on above: Order Comment: Name Collection Type:: Voided Performed By: #### U A ####[address] Nitrite,Urine Negative Normal Negative [facility] Comment on above: Order Comment: Name Collection Type:: Voided Performed By: #### U A ####[place] [id number] [facility] Occult Blood,Urine Negative Normal Negative [facility] Comment on above: Order Comment: Name Collection Type:: Voided Result Comment: PERF ORMED BY: [facility] [address] [address] PATHOLOGIST MANAGER BAR PABLO ZHAO M.D. Performed By: #### U A ####[address] Protein,Urine Negative Normal Negative [facility] Comment on above: Order Comment: Name Collection Type:: Voided Performed By: #### U A ####[address] Specificy [place],Urine 1.028 Normal 1.00 1-1.03 0 [facility] Comment on above: Order Comment: Name Collection Type:: Voided Performed By: #### U A ####[address] Urobilinogen,Urine Normal Normal Normal [facility] Comment on above: Order Comment: Name Collection Type:: Voided Performed By: #### U A ####[address] Urine clarity by refractomet ry automatedOrdered By: Tiffany Escobar on 06-21-2023 Clarity Refractometry automated (U) Clear Clear [facility] Urine glucose measurement by automated test strip (mass/volume)Ordered By: Tiffany Escobar on 06-21-2023 Glucose Auto test strip (U) [Mass/Vol] >=1000 mg/dL High Normal [facility] Urine hemoglobin detection b y automated test stripOrdered By: Tiffany Escobar on 06-21-2023 Hemoglobin Auto test strip Ql (U) Negative Negative [facility] Urine leukocyte esterase det ection by automated test stripOrdered By: Tiffany Maloney on 06-21-2023 Leukocyte esterase Auto test strip Ql (U) Negative Negative [facility] Urine pH measurement by auto mated test stripOrdered By: Tfifany Escobar on 06-21-2023 pH (U) 7.5 [pH] Normal 5.0-9.0 [facility] Comment on above: Order Comment: Name Collection Type:: Voided Performed By: #### U A ####[facility] [id number] Urobilinogen Auto test strip (U) [Mass/Vol]Ordered By: lubna Escobar on 06-21-2023 Urobilinogen (U) [Mass/Vol] Normal mg/dL Normal [facility] Vit. B12/Folate Profileon Folate 22.0 ng/mL Normal >5.9 [facility] Comment on above: Result Comment: Helene te reference range: >5.9 ng/ml The WHO technical consultation on folate and vitamin b12 deficiencies has determined that folate concentrations less than 4 ng/ml are considered deficient. PERFORMED BY: [place] [address] PATHOLOGIST MANAGER BAR PABLO ZHAO M.D. Performed By: #### C MP, LDH, FE and TIBC, [id number], CBC, RETIC, HAPT #### [facility] [address] #### CU #### [facility] , Vitamin B12 ser/plasOrdered By: Tiffany Escobar on 06-21-2023 Cobalamin (Vitamin B12) [Mass/Vol] 1380 pg/mL High 180-914 [facility] Comment on above: Performed By: #### C MP, LDH, FE and TIBC, [id number], CBC, RETIC, HAPT #### [address] #### CU #### [facility] , Complete Blood Count Auto Di ffon 06-20-2023 Basophils (Bld) [#/Vol] 0.0 10*3/uL Normal 0.0-0.2 [facility] Comment on above: Result Comment: PERF ORMED BY: [place] [address] PATHOLOGIST MANAGER BAR PABLO ZHAO M.D. Performed By: #### C MP, LDH, FE and TIBC, [id number], CBC, RETIC, HAPT #### [address] #### CU #### [facility] , Basophils/100 WBC (Bld) 0.9 % Normal . Luan marrero [facility] Comment on above: Performed By: #### C MP, LDH, FE and TIBC, [id number], CBC, RETIC, HAPT #### [address] #### CU #### [facility] , Eosinophils (Bld) [#/Vol] 0.4 10*3/uL Normal 0.0-0.45 [facility] Comment on above: Performed By: #### C MP, LDH, FE and TIBC, [id number], CBC, RETIC, HAPT #### [address] #### CU #### [facility] , Eosinophils/100 WBC (Bld) 9.4 % Normal . [facility] Comment on above: Performed By: #### C MP, LDH, FE and TIBC, [id number], CBC, RETIC, HAPT #### [place] [address] [place] #### CU #### [facility] , Erythrocyte distribution width (RBC) [Ratio] 19.1 % High 12.0-14.8 [facility] Comment on above: Performed By: #### C MP, LDH, FE and TIBC, [id number], CBC, RETIC, HAPT #### [place] [address] [place] #### CU #### [facility] , Hematocrit (Bld) [Volume fraction] 30.6 % Low 38.8-50.0 [facility] Comment on above: Performed By: #### C MP, LDH, FE and TIBC, [id number], CBC, RETIC, HAPT #### [place] [address] [place] #### CU #### [facility] , Hemoglobin (Bld) [Mass/Vol] 9.4 g/dL Low 13.0-17.0 [facility] Comment on above: Performed By: #### C MP, LDH, FE and TIBC, [id number], CBC, RETIC, HAPT #### [address] #### CU #### [facility] , Lymphocytes (Bld) [#/Vol] 1.2 10*3/uL Normal 1.00-4.8 [facility] Comment on above: Performed By: #### C MP, LDH, FE and TIBC, [id number], CBC, RETIC, HAPT #### [address] #### CU #### [facility] , Lymphocytes/100 WBC (Bld) 32.7 % Normal . [facility] Comment on above: Performed By: #### C MP, LDH, FE and TIBC, [id number], CBC, RETIC, HAPT #### [address] #### CU #### [facility] , MCH (RBC) [Entitic mass] 24.0 pg Low 27.5-35.2 [facility] Comment on above: Performed By: #### C MP, LDH, FE and TIBC, [id number], CBC, RETIC, HAPT #### [place] [address] [place] #### CU #### [facility] , MCV (RBC) [Entitic vol] 77.8 fL Low 83.5-101 [facility] Comment on above: Performed By: #### C MP, LDH, FE and TIBC, [id number], CBC, RETIC, HAPT #### [place] [address] [place] #### CU #### [facility] , Mean Corpuscular HGB Conc 30.9 g/dL Low 32.5-35.6 [facility] Comment on above: Performed By: #### C MP, LDH, FE and TIBC, [id number], CBC, RETIC, HAPT #### [place] [address] [place] #### CU #### [facility] , Monocytes (Bld) [#/Vol] 0.5 10*3/uL Normal 0.0-0.8 [facility] Comment on above: Performed By: #### C MP, LDH, FE and TIBC, [id number], CBC, RETIC, HAPT #### [place] [address] [place] #### CU #### [facility] , Monocytes/100 WBC (Bld) 12.9 % Normal . [facility] Comment on above: Performed By: #### C MP, LDH, FE and TIBC, [id number], CBC, RETIC, HAPT #### [place] [address] [place] #### CU #### [facility] , Neutrophils (Bld) [#/Vol] 1.7 10*3/uL Low 1.8-7.7 [facility] Comment on above: Performed By: #### C MP, LDH, FE and TIBC, [id number], CBC, RETIC, HAPT #### [place] [address] [place] #### CU #### [facility] , Neutrophils/100 WBC (Bld) 44.1 % Normal . [facility] Comment on above: Performed By: #### C MP, LDH, FE and TIBC, [id number], CBC, RETIC, HAPT #### [place] [address] [place] #### CU #### [facility] , NRBC% 0.4 /100{WBC} Normal 0-0.5 [facility] Comment on above: Performed By: #### C MP, LDH, FE and TIBC, [id number], CBC, RETIC, HAPT #### [place] [address] [place] #### CU #### [facility] , Platelet mean volume (Bld) [Entitic vol] 7.1 fL Normal 6.6-10.1 [facility] Comment on above: Performed By: #### C MP, LDH, FE and TIBC, [id number], CBC, RETIC, HAPT #### [place] [address] [place] #### CU #### [facility] , Platelets (Bld) [#/Vol] 190 10*3/uL Normal 150-450 [facility] Comment on above: Performed By: #### C MP, LDH, FE and TIBC, [id number], CBC, RETIC, HAPT #### [place] [address] [place] #### CU #### [facility] , RBC (Bld) [#/Vol] 3.93 10*6/uL Normal 3.90-5.60 [facility] Comment on above: Performed By: #### C MP, LDH, FE and TIBC, [id number], CBC, RETIC, HAPT #### [place] [address] [place] #### CU #### [facility] , WBC (Bld) [#/Vol] 3.7 10*3/uL Low 4.1-10.5 [facility] Comment on above: Performed By: #### C MP, LDH, FE and TIBC, [id number], CBC, RETIC, HAPT #### [place] [address] [place] #### CU #### [facility] , Comprehensive Metabolic Pane reid 06-20-2023 Albumin [Mass/Vol] 4.1 g/dL Normal 3.5-5.7 [facility] Comment on above: Performed By: #### C MP, LDH, FE and TIBC, [id number], CBC, RETIC, HAPT #### [place] [address] [place] #### CU #### [facility] , Albumin/Globulin [Mass ratio] 1.4 {ratio} Normal [facility] Comment on above: Performed By: #### C MP, LDH, FE and TIBC, [id number], CBC, RETIC, HAPT #### [place] [address] [place] #### CU #### [facility] , ALP [Catalytic activity/Vol] 67 U/L Normal 34-104 [facility] Comment on above: Performed By: #### C MP, LDH, FE and TIBC, [id number], CBC, RETIC, HAPT #### [place] [address] [place] #### CU #### [facility] , ALT [Catalytic activity/Vol] 9 U/L Normal 7-52 [facility] Comment on above: Performed By: #### C MP, LDH, FE and TIBC, [id number], CBC, RETIC, HAPT #### [place] [address] [place] #### CU #### [facility] , Anion gap [Moles/Vol] 10.9 mmol/L Normal 6.0-15.0 [facility] Comment on above: Performed By: #### C MP, LDH, FE and TIBC, [id number], CBC, RETIC, HAPT #### [address] [address] [place] #### CU #### [facility] , AST [Catalytic activity/Vol] 17 U/L Normal 13-39 [facility] Comment on above: Performed By: #### C MP, LDH, FE and TIBC, [id number], CBC, RETIC, HAPT #### [place] [address] [place] #### CU #### [facility] , Bilirubin [Mass/Vol] 0.4 mg/dL Normal 0.3-1.0 [facility] Comment on above: Performed By: #### C MP, LDH, FE and TIBC, [id number], CBC, RETIC, HAPT #### [address] #### CU #### [facility] , Calcium [Mass/Vol] 9.5 mg/dL Normal 8.6-10.3 [facility] Comment on above: Performed By: #### C MP, LDH, FE and TIBC, [id number], CBC, RETIC, HAPT #### [place] [address] [place] #### CU #### [facility] , Chloride [Moles/Vol] 100 mmol/L Normal 98-107 [facility] Comment on above: Performed By: #### C MP, LDH, FE and TIBC, [id number], CBC, RETIC, HAPT #### [place] [address] [place] #### CU #### [facility] , CO2 [Moles/Vol] 34.2 mmol/L High 21.0-31.0 [facility] Comment on above: Performed By: #### C MP, LDH, FE and TIBC, [id number], CBC, RETIC, HAPT #### [place] [address] [place] #### CU #### [facility] , Creatinine [Mass/Vol] 0.98 mg/dL Normal 0.70-1.30 [facility] Comment on above: Performed By: #### C MP, LDH, FE and TIBC, [id number], CBC, RETIC, HAPT #### [place] [address] [place] #### CU #### [facility] , Creatinine Clr Calc Pharmacy 64.64 Normal [facility] Comment on above: Performed By: #### C MP, LDH, FE and TIBC, [id number], CBC, RETIC, HAPT #### [place] [address] [place] #### CU #### [facility] , GFR/1.73 sq M.predicted MDRD (S/P/Bld) [Vol rate/Area] mL/min/{1.73_m2} Normal [facility] Comment on above: Performed By: #### C MP, LDH, FE and TIBC, [id number], CBC, RETIC, HAPT #### [place] [address] [place] #### CU #### [facility] , Globulin (S) [Mass/Vol] 3.0 g/dL Normal T [facility] Comment on above: Performed By: #### C MP, LDH, FE and TIBC, [id number], CBC, RETIC, HAPT #### [place] [address] [place] #### CU #### [facility] , Glucose [Mass/Vol] 149 mg/dL High 70-100 [facility] Comment on above: Result Comment: [place] Glucose Reference Range is dependent on time and content of last meal. Glucose of more than 200 mg/dL in a nonstressed, ambulatory subject supports the diagnosis of Diabetes Mellitus. ADA recommended reference range Performed By: #### C MP, LDH, FE and TIBC, [id number], CBC, RETIC, HAPT #### [place] [address] [place] #### CU #### [facility] , Potassium [Moles/Vol] 4.1 mmol/L Normal 3.5-5.1 [facility] Comment on above: Performed By: #### C MP, LDH, FE and TIBC, [id number], CBC, RETIC, HAPT #### [place] [address] [place] #### CU #### [facility] , Protein [Mass/Vol] 7.1 g/dL Normal 6.4-8.9 [facility] Comment on above: Performed By: #### C MP, LDH, FE and TIBC, [id number], CBC, RETIC, HAPT #### [address] #### CU #### [facility] , Sodium [Moles/Vol] 141 mmol/L Normal 136-145 [facility] Comment on above: Performed By: #### C MP, LDH, FE and TIBC, [id number], CBC, RETIC, HAPT #### [place] [address] [place] #### CU #### [facility] , Urea nitrogen [Mass/Vol] 17 mg/dL Normal 7-25 [facility] Comment on above: Performed By: #### C MP, LDH, FE and TIBC, [id number], CBC, RETIC, HAPT #### [place] [address] [place] #### CU #### [facility] , Thyrotropin [Units/volume] i n Serum or PlasmaOrdered By: Tanvi Alonso on 06-20-2023 TSH Qn 3.35 m[IU]/L Normal 0.45-5.33 [facility] Comment on above: Result Comment: PERF ORMED BY: [place] [address] PATHOLOGIST MANAGER BAR PABLO ZHAO M.D. Performed By: #### C MP, LDH, FE and TIBC, [id number], CBC, RETIC, HAPT #### [facility] [address] #### CU #### [facility] , Progress Noteson 12-28-2022 Circulation Representative Authentication Interface Message Text EMERGENCY TRIAGE, TREAT AND TRANSPORT (ET3) DOCUMENTATION OF TELEHEALTH VISIT Date / Time: 12/28/20222099 Name: Roxann Rm : 1950 SSN: (Not on file) EMS Agency: [facility] [x] Verbal consent obtained [] [...] Completed by: Em Staples MD Normal [facility] XR CHEST 2 Von 12-26-2022 XR [...] OBINNA ARORA Date: 2022-12-26 17:38 Normal [facility] CBC AUTO DIFFon 12-15-2022 BASO # 0.0 103/ul Normal 0.0-0.1 [facility] Comment on above: Performed By: #### I NFLUAB #### [facility] [address] [address] [address] Berta Thakkar Basophils/100 WBC (Bld) 0.3 % Normal 0.2-2.0 [facility] Comment on above: Performed By: #### I NFLUAB #### [facility] [address] [address] [address] Berta Thakkar EO # 0.0 103/ul Normal 0.0-0.7 [facility] Comment on above: Performed By: #### I NFLUAB #### [facility] [address] [address] [address] Berta Thakkar Eosinophils/100 WBC (Bld) 0.0 % Critically low 0.9-7.0 [facility] Comment on above: Performed By: #### I NFLUAB #### [facility] [address] [address] [address] Berta Thakkar Erythrocyte distribution width (RBC) [Ratio] 26.2 % Critically high 11.0-15.0 [facility] Comment on above: Performed By: #### I NFLUAB #### [facility] [address] [place] [address] Dr. Berta Thakkar Hematocrit (Bld) [Volume fraction] 29.3 % Critically low 42.0-54.0 [facility] Comment on above: Performed By: #### I NFLUAB #### [facility] [address] [place] [address] Dr. Berta Thakkar Hemoglobin (Bld) [Mass/Vol] 9.2 g/dL Critically low 14.0-18.0 [facility] Comment on above: Performed By: #### I NFLUAB #### [facility] [address] [place] [address] Dr. Berta Thakkar IG # 0.01 10e3/ul Normal 0.00-0.03 [facility] Comment on above: Performed By: #### I NFLUAB #### [facility] [address] [place] [address] Dr. Berta Thakkar IG % 0.3 % Normal 0.0-0.5 [facility] Comment on above: Performed By: #### I NFLUAB #### [facility] [address] [place] [address] Dr. Berta Thakkar LYMPH # 0.1 103/ul Critically low 1.2-3.8 [facility] Comment on above: Performed By: #### I NFLUAB #### [facility] [address] [place] [address] Dr. Berta Thakkar Lymphocytes/100 WBC (Bld) 3.6 % Critically low 20.5-60.0 [facility] Comment on above: Performed By: #### I NFLUAB #### [facility] [address] [place] [address] Dr. Berta Thakkar MANUAL DIFF REQ NO Normal [facility] Comment on above: Performed By: #### I NFLUAB #### [facility] [address] [place] [address] Dr. Berta Thakkar MCH (RBC) [Entitic mass] 28.0 pg Normal 25.9-34.0 [facility] Comment on above: Performed By: #### I NFLUAB #### [facility] [address] [place] [address] Dr. Berta Thakkar MCHC (RBC) [Mass/Vol] 31.4 g/dL Normal 29.9-35.2 [facility] Comment on above: Performed By: #### I NFLUAB #### [facility] [address] [place] [address] Dr. Berta Thakkar MCV (RBC) [Entitic vol] 89.3 fL Normal 80.0-94.0 [facility] Comment on above: Performed By: #### I NFLUAB #### [facility] [address] [place] [address] Dr. Berta Thakkar MONO # 0.1 103/ul Critically low 0.3-0.8 [facility] Comment on above: Performed By: #### I NFLUAB #### [facility] [address] [place] [address] Dr. Berta Thakkar Monocytes/100 WBC (Bld) 2.2 % Normal 1.7-12.0 [facility] Comment on above: Performed By: #### I NFLUAB #### [facility] [address] [place] [address] Dr. Berta Thakkar NEUT # 3.4 103/ul Normal 1.4-6.5 [facility] Comment on above: Performed By: #### I NFLUAB #### [facility] [address] [place] [address] Dr. Berta Thakkar Neutrophils/100 WBC (Bld) 93.6 % Critically high 43.0-75.0 [facility] Comment on above: Performed By: #### I NFLUAB #### [facility] [address] [place] [address] Dr. Berta Thakkar Platelet mean volume (Bld) [Entitic vol] 9.7 fL Normal 9.5-13.5 [facility] Comment on above: Performed By: #### I NFLUAB #### [facility] [address] [address] [address] Berta Thakkar PLT 77 103/ul Critically low 150-450 [facility] Comment on above: Performed By: #### I NFLUAB #### [facility] [address] [address] [address] Berta Thakkar RBC 3.28 106/ul Critically low 4.70-6.10 [facility] Comment on above: Performed By: #### I NFLUAB #### [facility] [address] [address] [address] Berta Thakkar WBC 3.6 103/ul Critically low 4.0-11.0 [facility] Comment on above: Performed By: #### I NFLUAB #### [facility] [address] [place] [address] Dr. Berta Thakkar PROF 14(COMP METB)on 023 Albumin [Mass/Vol] 2.5 g/dL Critically low 3.4-5.0 [facility] Comment on above: Performed By: #### I NFLUAB #### [facility] [address] [place] [address] Dr. Berta Thakkar Albumin/Globulin [Mass ratio] 0.7 {ratio} Normal [facility] Comment on above: Performed By: #### I NFLUAB #### [facility] [address] [place] [address] Dr. Berta Thakkar ALP [Catalytic activity/Vol] 46 U/L Normal 46-116 [facility] Comment on above: Performed By: #### I NFLUAB #### [facility] [address] [place] [address] Dr. Berta Thakkar ALT [Catalytic activity/Vol] 19 U/L Normal 16-63 [facility] Comment on above: Performed By: #### I NFLUAB #### [facility] [address] [place] [address] Dr. Berta Thakkar Anion gap [Moles/Vol] 11.0 mmol/L Normal [facility] Comment on above: Performed By: #### I NFLUAB #### [facility] [address] [address] [address] Berta Thakkar AST [Catalytic activity/Vol] 33 U/L Normal 15-37 [facility] Comment on above: Performed By: #### I NFLUAB #### [facility] [address] [place] [address] Dr. Berta Thakkar Bilirubin [Mass/Vol] 0.3 mg/dL Normal 0.2-1.0 [facility] Comment on above: Performed By: #### I NFLUAB #### [facility] [address] [place] [address] Dr. Berta Thakkar Calcium [Mass/Vol] 8.6 mg/dL Normal 8.5-10.1 [facility] Comment on above: Performed By: #### I NFLUAB #### [facility] [address] [place] [address] Dr. Berta Thakkar Chloride [Moles/Vol] 109 mmol/L Critically high 98-107 [facility] Comment on above: Performed By: #### I NFLUAB #### [facility] [address] [place] [address] Dr. Berta Thakkar CO2 [Moles/Vol] 26.1 mmol/L Normal 21.0-32.0 [facility] Comment on above: Performed By: #### I NFLUAB #### [facility] [address] [place] [address] Dr. Berta Thakkar Creatinine [Mass/Vol] 0.89 mg/dL Normal 0.70-1.30 [facility] Comment on above: Performed By: #### I NFLUAB #### [facility] [address] [place] [address] Dr. Berta Thakkar EGFR-AF SLOVENIAN >60 Normal >=60 [facility] Comment on above: Performed By: #### I NFLUAB #### [facility] [address] [place] [address] Dr. Berta Thakkar EGFR-NON AF SLOVENIAN >60 Normal >=60 [facility] Comment on above: Performed By: #### I NFLUAB #### [facility] [address] [place] [address] Dr. Berta Thakkar Globulin (S) [Mass/Vol] 3.7 g/dL Normal [facility] Comment on above: Performed By: #### I NFLUAB #### [facility] [address] [address] [address] Berta Thakkar Glucose [Mass/Vol] 188 mg/dL Critically high 74-106 [facility] Comment on above: Performed By: #### I NFLUAB #### [facility] [address] [address] [address] Berta Thakkar Potassium [Moles/Vol] 4.1 mmol/L Normal 3.5-5.1 [facility] Comment on above: Performed By: #### I NFLUAB #### [facility] [address] [place] [address] Dr. Berta Thakkar Protein [Mass/Vol] 6.2 g/dL Critically low 6.4-8.2 [facility] Comment on above: Performed By: #### I NFLUAB #### [facility] [address] [place] [address] Dr. Berta Thakkar Sodium [Moles/Vol] 142 mmol/L Normal 136-145 [facility] Comment on above: Performed By: #### I NFLUAB #### [facility] [address] [place] [address] Dr. Berta Thakkar Urea nitrogen [Mass/Vol] 31.0 mg/dL Critically high 7.0-18.0 [facility] Comment on above: Performed By: #### I NFLUAB #### [facility] [address] [place] [address] Dr. Berta Thakkar Urea nitrogen/Creatinine [Mass ratio] 34.8 mg/mg Normal [facility] Comment on above: Performed By: #### I NFLUAB #### [facility] [address] [place] [address] Dr. Berta Thakkar CBC AUTO DIFFon 12-14-2022 BASO # 0.0 103/ul Normal 0.0-0.1 [facility] Comment on above: Performed By: #### I NFLUAB #### [facility] [address] [address] [address] Berta Thakkar Basophils/100 WBC (Bld) 0.0 % Critically low 0.2-2.0 [facility] Comment on above: Performed By: #### I NFLUAB #### [facility] [address] [address] [address] Berta Thakkar EO # 0.0 103/ul Normal 0.0-0.7 [facility] Comment on above: Performed By: #### I NFLUAB #### [facility] [address] [place] [address] Dr. Berta Thakkar Eosinophils/100 WBC (Bld) 0.0 % Critically low 0.9-7.0 [facility] Comment on above: Performed By: #### I NFLUAB #### [facility] [address] [place] [address] Dr. Berta Thakkar Erythrocyte distribution width (RBC) [Ratio] 26.3 % Critically high 11.0-15.0 [facility] Comment on above: Performed By: #### I NFLUAB #### [facility] [address] [place] [address] Dr. Berta Thakkar Hematocrit (Bld) [Volume fraction] 29.7 % Critically low 42.0-54.0 [facility] Comment on above: Performed By: #### I NFLUAB #### [facility] [address] [place] [address] Dr. Berta Thakkar Hemoglobin (Bld) [Mass/Vol] 9.2 g/dL Critically low 14.0-18.0 [facility] Comment on above: Performed By: #### I NFLUAB #### [facility] [address] [place] [address] Dr. Berta Thakkar IG # 0.00 10e3/ul Normal 0.00-0.03 [facility] Comment on above: Performed By: #### I NFLUAB #### [facility] [address] [place] [address] Dr. Berta Thakkar IG % 0.0 % Normal 0.0-0.5 [facility] Comment on above: Performed By: #### I NFLUAB #### [facility] [address] [address] [address] Berta Thakkar LYMPH # 0.2 103/ul Critically low 1.2-3.8 [facility] Comment on above: Performed By: #### I NFLUAB #### [facility] [address] [address] [address] Berta Thakkar Lymphocytes/100 WBC (Bld) 5.4 % Critically low 20.5-60.0 [facility] Comment on above: Performed By: #### I NFLUAB #### [facility] [address] [address] [address] Berta Thakkar MANUAL DIFF REQ NO Normal [facility] Comment on above: Performed By: #### I NFLUAB #### [facility] [address] [address] [address] Berta Thakkar MCH (RBC) [Entitic mass] 27.8 pg Normal 25.9-34.0 [facility] Comment on above: Performed By: #### I NFLUAB #### [facility] [address] [address] [address] Berta Thakkar MCHC (RBC) [Mass/Vol] 31.0 g/dL Normal 29.9-35.2 [facility] Comment on above: Performed By: #### I NFLUAB #### [facility] [address] [address] [address] Berta Thakkar MCV (RBC) [Entitic vol] 89.7 fL Normal 80.0-94.0 [facility] Comment on above: Performed By: #### I NFLUAB #### [facility] [address] [address] [address] Berta Thakkar MONO # 0.1 103/ul Critically low 0.3-0.8 [facility] Comment on above: Performed By: #### I NFLUAB #### [facility] [address] [address] [address] Berta Thakkar Monocytes/100 WBC (Bld) 1.6 % Critically low 1.7-12.0 [facility] Comment on above: Performed By: #### I NFLUAB #### [facility] [address] [place] [address] Dr. Berta Thakkar NEUT # 3.5 103/ul Normal 1.4-6.5 [facility] Comment on above: Performed By: #### I NFLUAB #### [facility] [address] [place] [address] Dr. Berta Thakkar Neutrophils/100 WBC (Bld) 93.0 % Critically high 43.0-75.0 [facility] Comment on above: Performed By: #### I NFLUAB #### [facility] [address] [place] [address] Dr. Berta Thakkar Platelet mean volume (Bld) [Entitic vol] 9.7 fL Normal 9.5-13.5 [facility] Comment on above: Performed By: #### I NFLUAB #### [facility] [address] [place] [address] Dr. Berta Thakkar PLT 99 103/ul Critically low 150-450 [facility] Comment on above: Performed By: #### I NFLUAB #### [facility] [address] [place] [address] Dr. Berta Thakkar RBC 3.31 106/ul Critically low 4.70-6.10 [facility] Comment on above: Performed By: #### I NFLUAB #### [facility] [address] [place] [address] Dr. Berta Thakkar WBC 3.7 103/ul Critically low 4.0-11.0 [facility] Comment on above: Performed By: #### I NFLUAB #### [facility] [address] [place] [address] Dr. Berta Thakkar PROF 14(COMP METB)on 023 Albumin [Mass/Vol] 2.5 g/dL Critically low 3.4-5.0 [facility] Comment on above: Performed By: #### C MP #### [facility] [address] [place] [address] Dr. Berta Thakkar Albumin/Globulin [Mass ratio] 0.7 {ratio} Normal [facility] Comment on above: Performed By: #### C MP #### [facility] [address] [place] [address] Dr. Berta Thakkar ALP [Catalytic activity/Vol] 55 U/L Normal 46-116 [facility] Comment on above: Performed By: #### C MP #### [facility] [address] [address] [address] Berta Thakkar ALT [Catalytic activity/Vol] 24 U/L Normal 16-63 [facility] Comment on above: Performed By: #### C MP #### [facility] [address] [place] [address] Dr. Berta Thakkar Anion gap [Moles/Vol] 12.6 mmol/L Normal [facility] Comment on above: Performed By: #### C MP #### [facility] [address] [place] [address] Dr. Berta Thakkar AST [Catalytic activity/Vol] 34 U/L Normal 15-37 [facility] Comment on above: Performed By: #### C MP #### [facility] Laboratory [address] [place] [address] Dr. Berta Thakkar Bilirubin [Mass/Vol] 0.3 mg/dL Normal 0.2-1.0 [facility] Comment on above: Performed By: #### C MP #### [facility] [address] [place] [address] Dr. Berta Thakkar Calcium [Mass/Vol] 8.5 mg/dL Normal 8.5-10.1 [facility] Comment on above: Performed By: #### C MP #### [facility] [address] [place] [address] Dr. Berta Thakkar Chloride [Moles/Vol] 105 mmol/L Normal 98-107 [facility] Comment on above: Performed By: #### C MP #### [facility] [address] [place] [address] Dr. Berta Thakkar CO2 [Moles/Vol] 25.5 mmol/L Normal 21.0-32.0 [facility] Comment on above: Performed By: #### C MP #### [facility] [address] [address] [address] Berta Thakkar Creatinine [Mass/Vol] 0.97 mg/dL Normal 0.70-1.30 [facility] Comment on above: Performed By: #### C MP #### [facility] [address] [address] [address] Berta Thakkar EGFR-AF SLOVENIAN >60 Normal >=60 [facility] Comment on above: Performed By: #### C MP #### [facility] [address] [address] [address] Berta Thakkar EGFR-NON AF SLOVENIAN >60 Normal >=60 [facility] Comment on above: Performed By: #### C MP #### [facility] [address] [place] [address] Dr. Berta Thakkar Globulin (S) [Mass/Vol] 3.7 g/dL Normal [facility] Comment on above: Performed By: #### C MP #### [facility] [address] [place] [address] Dr. Berta Thakkar Glucose [Mass/Vol] 186 mg/dL Critically high 74-106 [facility] Comment on above: Performed By: #### C MP #### [facility] [address] [place] [address] Dr. Berta Thakkar Potassium [Moles/Vol] 4.1 mmol/L Normal 3.5-5.1 [facility] Comment on above: Performed By: #### C MP #### [facility] [address] [place] [address] Dr. Berta Thakkar Protein [Mass/Vol] 6.2 g/dL Critically low 6.4-8.2 [facility] Comment on above: Performed By: #### C MP #### [facility] [address] [address] [address] Berta Thakkar Sodium [Moles/Vol] 139 mmol/L Normal 136-145 [facility] Comment on above: Performed By: #### C MP #### [facility] [address] [address] [address] Berta Thakkar Urea nitrogen [Mass/Vol] 23.0 mg/dL Critically high 7.0-18.0 [facility] Comment on above: Performed By: #### C MP #### [facility] [address] [address] [address] Berta Thakkar Urea nitrogen/Creatinine [Mass ratio] 23.7 mg/mg Normal [facility] Comment on above: Performed By: #### C MP #### [facility] [address] [address] [address] Berta Thakkar PTT HEPARIN MONITORon 2022 aPTT Coag (Bld) [Time] 96.8 s Critically high 39.5-54. 2 [facility] Comment on above: Performed By: #### P T, PTT #### [facility] [address] [place] [address] Dr. Berta Thakkar TROPONIN, HIGH SENSITIVITYon 12-14-2022 HSTROP 734.6 pg/mL Critically high 4.0-76.1 [facility] Comment on above: Result Comment: CUT- OFF POINTS HAVE BEEN ESTABLISHED BASED ON THE FOURTH UNIVERSAL DEFINITIONS OF MYOCARDIAL INFARCTION. THE UPPER REFERENCE LIMIT (URL) OF TROPONIN, DEFINED THE 99TH PERCENTILE OF cTnI DISTRIBUTION IN A REFERENCE POPULATION, HAS BEEN CONFIRMED THE DECISION THRESHOLD FOR SC DIAGNOSIS. Performed By: #### I NFLUAB #### [facility] [address] [place] [address] Dr. Berta Thakkar CARDIAC PAIGE 3-6on 3 CK [Catalytic activity/Vol] 49 U/L Normal 39-308 [facility] Comment on above: Performed By: #### C MREP #### [facility] [address] [place] [address] Dr. Berta Thakkar CK.MB [Mass/Vol] 0.73 ng/mL Normal <=3.60 [facility] Comment on above: Performed By: #### C MREP #### [facility] [address] [place] [address] Dr. Berta Thakkar HSTROP 177.7 pg/mL Critically high 4.0-76.1 [facility] Comment on above: Result Comment: CUT- OFF POINTS HAVE BEEN ESTABLISHED BASED ON THE FOURTH UNIVERSAL DEFINITIONS OF MYOCARDIAL INFARCTION. THE UPPER REFERENCE LIMIT (URL) OF TROPONIN, DEFINED THE 99TH PERCENTILE OF cTnI DISTRIBUTION IN A REFERENCE POPULATION, HAS BEEN CONFIRMED THE DECISION THRESHOLD FOR SC DIAGNOSIS. Performed By: #### C MREP #### [facility] [address] [address] [address] Berta Thakkar CK [Catalytic activity/Vol] 38 U/L Critically low 39-308 [facility] Comment on above: Performed By: #### I NFLUAB #### [facility] [address] [address] [address] Berta Thakkar CK.MB [Mass/Vol] 0.38 ng/mL Normal <=3.60 [facility] Comment on above: Performed By: #### I NFLUAB #### [facility] [address] [place] [address] Dr. Berta Thakkar HSTROP 71.8 pg/mL Normal 4.0-76.1 [facility] Comment on above: Result Comment: CUT- OFF POINTS HAVE BEEN ESTABLISHED BASED ON THE FOURTH UNIVERSAL DEFINITIONS OF MYOCARDIAL INFARCTION. THE UPPER REFERENCE LIMIT (URL) OF TROPONIN, DEFINED THE 99TH PERCENTILE OF cTnI DISTRIBUTION IN A REFERENCE POPULATION, HAS BEEN CONFIRMED THE DECISION THRESHOLD FOR SC DIAGNOSIS. Performed By: #### I NFLUAB #### [facility] [address] [place] [address] Dr. Berta Thakkar CARDIAC PAIGE ADMITon 023 CK [Catalytic activity/Vol] 47 U/L Normal 39-308 [facility] Comment on above: Performed By: #### H STROPN #### [facility] [address] [address] [address] Berta Thakkar CK.MB [Mass/Vol] 0.36 ng/mL Normal <=3.60 [facility] Comment on above: Performed By: #### H STROPN #### [facility] [address] [address] [address] Berta Thakkar HSTROP 83.0 pg/mL Critically high 4.0-76.1 [facility] Comment on above: Result Comment: CUT- OFF POINTS HAVE BEEN ESTABLISHED BASED ON THE FOURTH UNIVERSAL DEFINITIONS OF MYOCARDIAL INFARCTION. THE UPPER REFERENCE LIMIT (URL) OF TROPONIN, DEFINED THE 99TH PERCENTILE OF cTnI DISTRIBUTION IN A REFERENCE POPULATION, HAS BEEN CONFIRMED THE DECISION THRESHOLD FOR SC DIAGNOSIS. Performed By: #### H STROPN #### [facility] [address] [place] [address] Dr. Berta Thakkar CAROL 56 ng/mL Normal 16-96 [facility] Comment on above: Performed By: #### H STROPN #### [facility] [address] [place] [address] Dr. Berta Thakkar CBC AUTO DIFFon 12-13-2022 BASO # 0.0 103/ul Normal 0.0-0.1 [facility] Comment on above: Performed By: #### I NFLUAB #### [facility] [address] [place] [address] Dr. Berta Thakkar Basophils/100 WBC (Bld) 0.2 % Normal 0.2-2.0 [facility] Comment on above: Performed By: #### I NFLUAB #### [facility] [address] [place] [address] Dr. Berta Thakkar EO # 0.0 103/ul Normal 0.0-0.7 [facility] Comment on above: Performed By: #### I NFLUAB #### [facility] [address] [place] [address] Dr. Berta Thakkar Eosinophils/100 WBC (Bld) 1.0 % Normal 0.9-7.0 [facility] Comment on above: Performed By: #### I NFLUAB #### [facility] [address] [place] [address] Dr. Berta Thakkar Erythrocyte distribution width (RBC) [Ratio] 25.6 % Critically high 11.0-15.0 [facility] Comment on above: Performed By: #### I NFLUAB #### [facility] [address] [place] [address] Dr. Berta Thakkar Hematocrit (Bld) [Volume fraction] 37.2 % Critically low 42.0-54.0 [facility] Comment on above: Performed By: #### I NFLUAB #### [facility] [address] [place] [address] Dr. Berta Thakkar Hemoglobin (Bld) [Mass/Vol] 11.6 g/dL Critically low 14.0-18.0 [facility] Comment on above: Performed By: #### I NFLUAB #### [facility] [address] [place] [address] Dr. Berta Thakkar IG # 0.02 10e3/ul Normal 0.00-0.03 [facility] Comment on above: Performed By: #### I NFLUAB #### [facility] [address] [place] [address] Dr. Berta Thakkar IG % 0.5 % Normal 0.0-0.5 [facility] Comment on above: Performed By: #### I NFLUAB #### [facility] [address] [place] [address] Dr. Berta Thakkar LYMPH # 0.5 103/ul Critically low 1.2-3.8 [facility] Comment on above: Performed By: #### I NFLUAB #### [facility] [address] [place] [address] Dr. Berta Thakkar Lymphocytes/100 WBC (Bld) 11.3 % Critically low 20.5-60.0 [facility] Comment on above: Performed By: #### I NFLUAB #### [facility] [address] [place] [address] Dr. Berta Thakkar MANUAL DIFF REQ NO Normal [facility] Comment on above: Performed By: #### I NFLUAB #### [facility] [address] [place] [address] Dr. Berta Thakkar MCH (RBC) [Entitic mass] 27.9 pg Normal 25.9-34.0 [facility] Comment on above: Performed By: #### I NFLUAB #### [facility] [address] [place] [address] Dr. Berta Thakkar MCHC (RBC) [Mass/Vol] 31.2 g/dL Normal 29.9-35.2 [facility] Comment on above: Performed By: #### I NFLUAB #### [facility] [address] [place] [address] Dr. Berta Thakkar MCV (RBC) [Entitic vol] 89.4 fL Normal 80.0-94.0 [facility] Comment on above: Performed By: #### I NFLUAB #### [facility] [address] [place] [address] Dr. Berta Thakkar MONO # 0.3 103/ul Normal 0.3-0.8 [facility] Comment on above: Performed By: #### I NFLUAB #### [facility] [address] [place] [address] Dr. Berta Thakkar Monocytes/100 WBC (Bld) 8.3 % Normal 1.7-12.0 [facility] Comment on above: Performed By: #### I NFLUAB #### [facility] [address] [place] [address] Dr. Berta Thakkar NEUT # 3.2 103/ul Normal 1.4-6.5 [facility] Comment on above: Performed By: #### I NFLUAB #### [facility] [address] [place] [address] Dr. Berta Thakkar Neutrophils/100 WBC (Bld) 78.7 % Critically high 43.0-75.0 [facility] Comment on above: Performed By: #### I NFLUAB #### [facility] [address] [place] [address] Dr. Berta Thakkar Platelet mean volume (Bld) [Entitic vol] 9.2 fL Critically low 9.5-13.5 [facility] Comment on above: Performed By: #### I NFLUAB #### [facility] [address] [place] [address] Dr. Berta Thakkar PLT 129 103/ul Critically low 150-450 [facility] Comment on above: Performed By: #### I NFLUAB #### [facility] [address] [place] [address] Dr. Berta Thakkar RBC 4.16 106/ul Critically low 4.70-6.10 [facility] Comment on above: Performed By: #### I NFLUAB #### [facility] [address] [place] [address] Dr. Berta Thakkar WBC 4.1 103/ul Normal 4.0-11.0 [facility] Comment on above: Performed By: #### I NFLUAB #### [facility] [address] [place] [address] Dr. Berta Thakkar CBC W MANUAL DIFFon 12-13-19 23 ANISOCYTOSIS 3+ Normal [facility] Comment on above: Performed By: #### C BCMAN #### [facility] [address] [place] [address] Dr. Berta Thakkar ATYPICAL LYMPH # Normal [facility] Comment on above: Performed By: #### C BCKOURTNEY #### [facility] [address] [place] [address] Dr. Berta Thakkar ATYPICAL LYMPH % Normal [facility] Comment on above: Performed By: #### C BCMAN #### [facility] [address] [place] [address] Dr. Berta Thakkar BAND # 0.7 103/ul Critically high 0.0-0.3 [facility] Comment on above: Performed By: #### C BCMAN #### [facility] [address] [place] [address] Dr. Berta Thakkar BAND % 19 % Critically high 0-5 [facility] Comment on above: Performed By: #### C BCMAN #### [facility] [address] [place] [address] Dr. Berta Thakkar BASOM # 0.00 103/ul Normal 0.00-0.10 [facility] Comment on above: Performed By: #### C BCMAN #### [facility] [address] [place] [address] Dr. Berta Thakkar BASOM % 0.0 % Critically low 0.2-2.0 [facility] Comment on above: Performed By: #### C BCMAN #### [facility] [address] [address] [address] Berta Thakkar BLAST # Normal [facility] Comment on above: Performed By: #### C BCMAN #### [facility] [address] [place] [address] Dr. Berta Thakkar BLAST % Normal [facility] Comment on above: Performed By: #### C BCMAN #### [facility] [address] [place] [address] Dr. Berta Thakkar CORRECTED WBC Normal 4.0-11.0 [facility] Comment on above: Performed By: #### C BCMAN #### [facility] [address] [place] [address] Dr. Berta Thakkar EOS # 0.04 103/ul Normal 0.00-0.70 [facility] Comment on above: Performed By: #### C BCMAN #### [facility] [address] [place] [address] Dr. Berta Thakkar EOS% 1.0 % Normal 0.9-7.0 [facility] Comment on above: Performed By: #### C BCMAN #### [facility] [address] [place] [address] Dr. Berta Thakkar HCT 28.8 % Critically low 42.0-54.0 [facility] Comment on above: Performed By: #### C BCMAN #### [facility] [address] [place] [address] Dr. Berta Thakkar HGB 9.0 g/dl Critically low 14.0-18.0 [facility] Comment on above: Performed By: #### C BCMAN #### [facility] [address] [place] [address] Dr. Berta Thakkar LYMPHM # 0.16 103/ul Critically low 1.20-3.80 [facility] Comment on above: Performed By: #### C BCMAN #### [facility] [address] [place] [address] Dr. Berta Thakkar LYMPHM% 4.0 % Critically low 20.5-60.0 [facility] Comment on above: Performed By: #### C TEOFILO #### [facility] [address] [place] [address] Dr. Berta Thakkar MCH 27.9 pg Normal 25.9-34.0 [facility] Comment on above: Performed By: #### C TEOFILO #### [facility] [address] [place] [address] Dr. Berta Thakkar MCHC 31.3 g/dl Normal 29.9-35.2 [facility] Comment on above: Performed By: #### C TEOFILO #### [facility] [address] [place] [address] Dr. Berta Thakkar MCV 89.2 fL Normal 80.0-94.0 [facility] Comment on above: Performed By: #### C TEOFILO #### [facility] [address] [place] [address] Dr. Berta Thakkar METAMYELOCYTE # Normal [facility] Comment on above: Performed By: #### C TEOFILO #### [facility] [address] [place] [address] Dr. Berta Thakkar METAMYELOCYTE % Normal [facility] Comment on above: Performed By: #### C TEOFILO #### [facility] [address] [place] [address] Dr. Berta Thakkar MONOM# 0.04 103/ul Critically low 0.30-0.80 [facility] Comment on above: Performed By: #### C TEOFILO #### [facility] [address] [place] [address] Dr. Berta Thakkar MONOM% 1.0 % Critically low 1.7-12.0 [facility] Comment on above: Performed By: #### C TEOFILO #### [facility] [address] [place] [address] Dr. Berta Thakkar MPV 8.9 fL Critically low 9.5-13.5 [facility] Comment on above: Performed By: #### C TEOFILO #### [facility] [address] [place] [address] Dr. Berta Thakkar MYELOCYTE # Normal [facility] Comment on above: Performed By: #### C TEOFILO #### [facility] [address] [address] [address] Berta Thakkar MYELOCYTE % Normal [facility] Comment on above: Performed By: #### C TEOFILO #### [facility] [address] [address] [address] Berta Thakkar NRBC Normal [facility] Comment on above: Performed By: #### C TEOFILO #### [facility] [address] [address] [address] Berta Thakkar PLT 95 103/ul Critically low 150-450 [facility] Comment on above: Performed By: #### C TEOFILO #### [facility] [address] [address] [address] Berta Thakkar RBC 3.23 106/ul Critically low 4.70-6.10 [facility] Comment on above: Performed By: #### C TEOFILO #### [facility] [address] [address] [address] Berta Thakkar RDW 26.3 % Critically high 11.0-15.0 [facility] Comment on above: Performed By: #### C TEOFILO #### [facility] [address] [address] [address] Berta Thakkar SEG # 2.92 103/ul Normal 1.40-6.50 [facility] Comment on above: Performed By: #### C TEOFILO #### [facility] [address] [address] [address] Berta Thakkar SEG % 75.0 % Normal 43.0-75.0 [facility] Comment on above: Performed By: #### C TEOFILO #### [facility] [address] [address] [address] Berta Thakkar TOXIC GRANULATION 3+ Normal [facility] Comment on above: Performed By: #### C TEOFILO #### [facility] [address] [address] [address] Berta hTakkar WBC 3.9 103/ul Critically low 4.0-11.0 [facility] Comment on above: Performed By: #### C BCMAN #### [facility] [address] [address] [address] Berta Thakkar CULTURE BLOODon 12-13-2022 Microscopic examination of blood, culture Culture Observations: NO GROWTH AT 5 DAYS. Normal [facility] Comment on above: Performed By: #### H STROPN #### [facility] [address] [address] [address] Berta Thakkar Microscopic examination of blood, culture Culture Observations: NO GROWTH AT 5 DAYS. Normal [facility] Comment on above: Performed By: #### H STROPN #### [facility] [address] [address] [address] Berta Thakkar Covid-19 PCR ([facility])on 11-27 SARS-CoV-2 (COVID-19) RNA VALENTINO+probe Ql (Unsp spec) Detected Abnormal NOT DETECTED [facility] Comment on above: Result Comment: When diagnostic [...] for this test is supported by the [place] of Health and Human Service's declaration that [...] for this test is supported by the [employer]Th Grade [employer] of Health and Human Service's declaration that [...] as: NOT DETECTED On 12/13/2022 00:49 By [facility] Performed By: #### C [facility] #### [facility] [address] [address] [address] Berta Thakkar ECHO LIMITED STUDYon 023 ECHO LIMITED STUDY Patient: CINDY RM Exam Date: 12/13/2022 : 1950 Gender:M Ordering : DR ABILIO KAY . Admission #: [id number] Family : Order #: [id number] CLICK HERE TO VIEW EXAM ECHOCARDIOGRAM REPORT [...] Saunders M.D. on 12/15/2022 at 10:13 Normal [facility] ER URINE PROFILEon 3 Bilirubin Ql (U) Negative Normal NEGATIVE [facility] Comment on above: Performed By: #### I NFLUAB #### [facility] [address] [place] [address] Dr. Berta Thakkar Clarity (U) CLEAR Normal CLEAR [facility] Comment on above: Performed By: #### I NFLUAB #### [facility] [address] [place] [address] Dr. Berta Thakkar Color (U) LT. YELLOW Normal YELLOW [facility] Comment on above: Performed By: #### I NFLUAB #### [facility] [address] [place] [address] Dr. Berta Thakkar ERUSANDRA A micrscopic examina tion will be performed if indicated. Normal [facility] Comment on above: Performed By: #### I NFLUAB #### [facility] [address] [place] [address] Dr. Berta Thakkar Glucose Ql (U) 250 mg/dl Abnormal NEGATIVE [facility] Comment on above: Performed By: #### I NFLUAB #### [facility] [address] [place] [address] Dr. Berta Thakkar Hemoglobin Ql (U) Negative Normal NEGATIVE [facility] Comment on above: Performed By: #### I NFLUAB #### [facility] [address] [place] [address] Dr. Berta Thakkar Ketones Ql (U) TRACE Abnormal NEGATIVE [facility] Comment on above: Performed By: #### I NFLUAB #### [facility] [address] [place] [address] Dr. Berta Thakkar LEUKOCYTES Negative Normal NEGATIVE [facility] Comment on above: Performed By: #### I NFLUAB #### [facility] [address] [place] [address] Dr. Berta Thakkar Nitrite Ql (U) Negative Normal NEGATIVE [facility] Comment on above: Performed By: #### I NFLUAB #### [facility] [address] [place] [address] Dr. Berta Thakkar pH (U) 6.0 [pH] Normal 5-9 [facility] Comment on above: Performed By: #### I NFLUAB #### [facility] [address] [place] [address] Dr. Berta Thakkar SPEC GRAVITY 1.025 Normal 1.005-<=1. 025 [facility] Comment on above: Performed By: #### I NFLUAB #### [facility] [address] [place] [address] Dr. Berta Thakkar UA PROTEIN TRACE Normal NEGATIVE/ TRACE [facility] Comment on above: Performed By: #### I NFLUAB #### [facility] [address] [place] [address] Dr. Berta Thakkar UR MICRO IND NOT INDICATED Normal [facility] Comment on above: Performed By: #### I NFLUAB #### [facility] [address] [place] [address] Dr. Berta Thakkar Urobilinogen Qn (U) 0.2 {Roro'U}/dL Normal 0.2 - 1. 0 [facility] Comment on above: Performed By: #### I NFLUAB #### [facility] [address] [place] [address] Dr. Berta Thakkar INFLUENZA A AND B AGon 12-13 INFLUANEGH SEE BELOW Normal [facility] Comment on above: Result Comment: Nega tive for Flu A protein angiten. Infection due to Flu A cannot be ruled out. Flu A angiten in the sample may be below the detection limit of the test. Performed By: #### I NFLUAB #### [facility] [address] [place] [address] Dr. Berta Thakkar [facility] SEE BELOW [facility] Comment on above: Result Comment: Nega tive for Flu B protein antigen. Infection due to Flu B cannot be ruled out. Flu B antigen in the sample may be below the detection limit of the test. Performed By: #### I NFLUAB #### [facility] [address] [place] [address] Dr. Berta Thakkar INFLUENZA A AG Negative Normal NEGATIVE SEE COMMENT [facility] Comment on above: Performed By: #### I NFLUAB #### [facility] [address] [place] [address] Dr. Berta Thakkar INFLUENZA B AG Negative Normal NEGATIVE SEE COMMENT [facility] Comment on above: Performed By: #### I NFLUAB #### [facility] [address] [place] [address] Dr. Berta Thakkar LACTATE/LACTIC ACIDon 2022 Lactate [Moles/Vol] 1.6 mmol/L Normal 0.4-1.9 [facility] Comment on above: Performed By: #### I NFLUAB #### [facility] [address] [place] [address] Dr. Berta Thakkar Lactate [Moles/Vol] 1.3 mmol/L Normal 0.4-1.9 [facility] Comment on above: Performed By: #### I NFLUAB #### [facility] [address] [place] [address] Dr. Berta Thakkar POINT OF CARE GLUCOSEon 11-27 Glucose [Mass/Vol] 217 mg/dL Critically high 74-106 [facility] Comment on above: Performed By: #### P T, PTT #### [facility] [address] [place] [address] Dr. Breta Thakkar PROF CHEM 8 (BAS METB)on Anion gap [Moles/Vol] 12.7 mmol/L Normal [facility] Comment on above: Performed By: #### H STROPN #### [facility] [address] [address] [address] Berta Thakkar Calcium [Mass/Vol] 9.3 mg/dL Normal 8.5-10.1 [facility] Comment on above: Performed By: #### H STROPN #### [facility] [address] [address] [address] Berta Thakkar Chloride [Moles/Vol] 98 mmol/L Normal 98-107 [facility] Comment on above: Performed By: #### H STROPN #### [facility] [address] [address] [address] Berta Thakkar CO2 [Moles/Vol] 30.4 mmol/L Normal 21.0-32.0 [facility] Comment on above: Performed By: #### H STROPN #### [facility] [address] [address] [address] Berta Thakkar Creatinine [Mass/Vol] 1.27 mg/dL Normal 0.70-1.30 [facility] Comment on above: Performed By: #### H STROPN #### [facility] [address] [address] [address] Berta Thakkar EGFR-AF SLOVENIAN >60 Normal >=60 [facility] Comment on above: Performed By: #### H STROPN #### [facility] [address] [address] [address] Berta Thakkar EGFR-NON AF SLOVENIAN 56 mL/min/1.73m2 Critically low >=60 [facility] Comment on above: Performed By: #### H STROPN #### [facility] [address] [address] [address] Berta Thakkar Glucose [Mass/Vol] 185 mg/dL Critically high 74-106 [facility] Comment on above: Performed By: #### H STROPN #### [facility] [address] [address] [address] Berta Thakkar Potassium [Moles/Vol] 4.1 mmol/L Normal 3.5-5.1 [facility] Comment on above: Performed By: #### H STROPN #### [facility] [address] [place] [address] Dr. Berta Thakkar Sodium [Moles/Vol] 137 mmol/L Normal 136-145 [facility] Comment on above: Performed By: #### H STROPN #### [facility] [address] [place] [address] Dr. Berta Thakkar Urea nitrogen [Mass/Vol] 27.0 mg/dL Critically high 7.0-18.0 [facility] Comment on above: Performed By: #### H STROPN #### [facility] [address] [place] [address] Dr. Berta Thakkar Urea nitrogen/Creatinine [Mass ratio] 21.3 mg/mg Normal [facility] Comment on above: Performed By: #### H STROPN #### [facility] [address] [place] [address] Dr. Berta Thakkar PROTIMEon 12-13-2022 INR Coag (PPP) [Relative time] 1.10 {INR} Normal [facility] Comment on above: Performed By: #### P T, PTT #### [facility] [address] [place] [address] Dr. Berta Thakkar INR GUIDELINES SEE BELOW Normal [facility] Comment on above: Result Comment: ANTHONY RED INR: 2.0 - 3.0 CONDITIONS NOT LISTED BELOW 2.5 - 3.5 FOR PROSTHETIC HEART VALVE REPLACEMENT 2.5 - 3.5 RECURRENT THROMBOSIS Performed By: #### P T, PTT #### [facility] [address] [place] [address] Dr. Berta Thakkar PT Coag (PPP) [Time] 11.6 s Normal 9.0-11.6 [facility] Comment on above: Performed By: #### P T, PTT #### [facility] [address] [place] [address] Dr. Berta Thakkar PTTon 12-13-2022 aPTT Coag (Bld) [Time] 35.0 s Normal 22.3-36.2 [facility] Comment on above: Performed By: #### P T, PTT #### [facility] [address] [place] [address] Dr. Berta Thakkar TROPONIN, HIGH SENSITIVITYon 12-13-2022 HSTROP 1727.1 pg/mL Critically high 4.0-76.1 [facility] Comment on above: Result Comment: CUT- OFF POINTS HAVE BEEN ESTABLISHED BASED ON THE FOURTH UNIVERSAL DEFINITIONS OF MYOCARDIAL INFARCTION. THE UPPER REFERENCE LIMIT (URL) OF TROPONIN, DEFINED THE 99TH PERCENTILE OF cTnI DISTRIBUTION IN A REFERENCE POPULATION, HAS BEEN CONFIRMED THE DECISION THRESHOLD FOR SC DIAGNOSIS. Performed By: #### H STROPN #### [facility] [address] [address] [address] Berta Thakkar HSTROP 2303.4 pg/mL Critically high 4.0-76.1 [facility] Comment on above: Result Comment: CUT- OFF POINTS HAVE BEEN ESTABLISHED BASED ON THE FOURTH UNIVERSAL DEFINITIONS OF MYOCARDIAL INFARCTION. THE UPPER REFERENCE LIMIT (URL) OF TROPONIN, DEFINED THE 99TH PERCENTILE OF cTnI DISTRIBUTION IN A REFERENCE POPULATION, HAS BEEN CONFIRMED THE DECISION THRESHOLD FOR SC DIAGNOSIS. Performed By: #### H STROPN #### [facility] [address] [address] [address] Berta Thakkar HSTROP 2122.6 pg/mL Critically high 4.0-76.1 [facility] Comment on above: Result Comment: CUT- OFF POINTS HAVE BEEN ESTABLISHED BASED ON THE FOURTH UNIVERSAL DEFINITIONS OF MYOCARDIAL INFARCTION. THE UPPER REFERENCE LIMIT (URL) OF TROPONIN, DEFINED THE 99TH PERCENTILE OF cTnI DISTRIBUTION IN A REFERENCE POPULATION, HAS BEEN CONFIRMED THE DECISION THRESHOLD FOR SC DIAGNOSIS. Performed By: #### H STROPN #### [facility] [address] [address] [address] Berta Thakkar HSTROP 1065.9 pg/mL Critically high 4.0-76.1 [facility] Comment on above: Result Comment: CUT- OFF POINTS HAVE BEEN ESTABLISHED BASED ON THE FOURTH UNIVERSAL DEFINITIONS OF MYOCARDIAL INFARCTION. THE UPPER REFERENCE LIMIT (URL) OF TROPONIN, DEFINED THE 99TH PERCENTILE OF cTnI DISTRIBUTION IN A REFERENCE POPULATION, HAS BEEN CONFIRMED THE DECISION THRESHOLD FOR SC DIAGNOSIS. Performed By: #### P T, PTT #### [facility] [address] [address] [address] 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 COMPARISON: September 21, 2021 ACCESSION NUMBER(S): [id number] ORDERING CLINICIAN: ANDREA HAWTHORNE FINDINGS: Possible new 6 mm left upper lobe pulmonary nodule. Cardiomegaly with atherosclerotic aorta unchanged. IMPRESSION: Possible new 6 mm left upper lobe pulmonary nodule. CT thorax recommended given the known history of previous malignancy. Electronic result notification sent on this study at the time of final interpretation 5:26 p.m. September 21, 2022 Electronically signed by: BERYL ANTUNEZ MD Normal [facility] Established Visit (Otolaryng ology)on 09-20-2022 Established Visit [...] ONCE DAILY ON AN EMPTY STOMACH [place] AEPB Vitals Vital Signs Recorded: 20Sep2022 03:19PMRecorded: 20Sep2022 [...] year Pain Scale0/10 Height5 ft 7 in Foqivu177 lb 9 oz BMI Dxftigsfvv90.8 kg/m2 BSA Calculated1.77 Physical Exam On examination the oral cavity and oropharynx are within normal limits. He does have some surgical changes of the anterior tongue on the (more content not included)... Normal [facility] [facility] 09-20-2022 XR Chest 2 Views Please click on the link to view the study images Normal [employer] Work Phone: TSHon 09-20-2022 TSH Qn 1.28 m[IU]/L Normal 0.44 - 3.98 [facility] Comment on above: Result Comment: TSH testing is performed using different testing methodology at [facility] than at other [facility]. Direct result comparisons should only be made within the same method. Performed By: #### T SH2 #### [address] [id number] TSH - Thyroid Stimulating Ho yessica Serumon 09-20-2022 TSH Qn 1.28 m[IU]/L See Below [employer] Work Phone: Comment on above: Reference Range: 0.4 4 - 3.98 TSH testing is performed using different testing methodology at [facility] than at other [facility]. Direct result comparisons should only be made within the same method. Tobacco Screening.on 022 Adult depression screening assessment No [employer] Work Phone: Fall risk assessment b) One or more fall s in the last year [employer] Work Phone: Tobacco use status [facility] b) No M [employer] Work Phone: H PYLORI TISSUEon 02-04-2022 H PYL TISSUE, UREASE Negative Normal NEGATIVE [facility] Comment on above: Performed By: #### H PYLT #### [facility] [address] [address] [address] Berta Thakkar POINT OF CARE GLUCOSEon Glucose [Mass/Vol] 149 mg/dL Critically high 74-106 [facility] Comment on above: Performed By: #### I NFLUAB #### [facility] [address] [address] [address] Berta Thakkar Complete Blood Counton 12-21 Erythrocyte distribution width (RBC) [Ratio] 18.2 % High 11.0-15.0 [facility] Comment on above: Performed By: #### C BC #### [facility] [address], [place] [id number] Hematocrit (Bld) [Volume fraction] 31.4 % Low 38.5-50.0 [facility] Specialist Comment on above: Performed By: #### C BC #### [facility] [address], [place] [id number] Hemoglobin (Bld) [Mass/Vol] 9.5 g/dL Low 13.0-17.1 [facility] Comment on above: Performed By: #### C BC #### [facility] [address], [place] [id number] MCH (RBC) [Entitic mass] 26.3 pg Low 27.0-33.0 [facility] Comment on above: Performed By: #### C BC #### [facility] [address], [place] [id number] MCHC (RBC) [Mass/Vol] 30.3 g/dL Low 32.0-36.0 [facility] Comment on above: Performed By: #### C BC #### [facility] [address], [place] [id number] MCV (RBC) [Entitic vol] 87 fL Normal 80-100 N [facility] Comment on above: Performed By: #### C BC #### [facility] [address], [place] [id number] Platelet mean volume (Bld) [Entitic vol] 8.50 fL Normal 7.50-12.50 [facility] Clinical Statistics Manager Comment on above: Performed By: #### C BC #### [facility] [address], [place] [id number] Platelets (Bld) [#/Vol] 180 10*3/uL Normal 140-400 [facility] Clinical Statistics Manager Comment on above: Performed By: #### C BC #### [facility] [address], [place] [id number] RBC (Bld) [#/Vol] 3.61 10*6/uL Low 4.20-5.80 [facility] Specialist Comment on above: Performed By: #### C BC #### [facility] [address], [place] [id number] RDW-SD 57.6 fL High 37.0-50.0 [facility] Clinical Statistics Manager Comment on above: Performed By: #### C BC #### [facility] [address], [place] [id number] WBC (Bld) [#/Vol] 4.0 10*3/uL Normal 3.8-11.0 [facility] Comment on above: Performed By: #### C BC #### [facility] [address], [place] [id number] Radiologyon 09-21-2021 XR Chest 2 Views [facility] Work Phone: XR Chest 2 Views Please click on the link to view the study images Normal MG-Otolaryng oly-[facility] Work Phone: TSH - Thyroid Stimulating Ho rmone, Serumon 09-21-2021 TSH Qn 3.49 m[IU]/L See Below MG-Otolaryng [facility] Work Phone: Comment on above: Reference Range: 0.4 4 - 3.98 TSH testing is performed using different testing methodology at [facility] than at other [facility]. Direct result comparisons should only be made within the same method. Tobacco Screening.on 021 Fall risk assessment b) One or more fall s in the last year MG-Otolaryng ology-[employer] Work Phone: Tobacco use status [facility] b) No M Wilfrido-Sandip [employer]ake [employer] Work Phone: Tobacco Screening.on 021 Fall risk assessment a) No falls within the last year -[employer]ex [employer]zJake seals Work Phone: Tobacco use status [facility] b) No M [employer] Work Phone: Estimated glomerular filtrat ion rate (GFR) non- Americanon 05-18-2021 GFR/1.73 sq M.predicted among non-blacks MDRD (S/P/Bld) [Vol rate/Area] 52 mL/Min [facility] - Hematology and Cell countson 05-18-2021 Nucleated RBC/100 WBC (Bld) [Ratio] 0.2 % 0-0.5 [facility] No Panel Informationon 05-18 Estimated GFR () > 60 mL/Min [facility] Comment on above: GFR estimated refere nce range: According to KDOQI guidelines, <60 ml/min/1.73m2 is sufficient to diagnose a patient with chronic kidney disease. Laboratory - Hematology and Cell countson 05-19-2020 WBC (Bld) [#/Vol] 3.4 10*3/uL Low 4.5-11.0 [facility] Otheron 07-23-2019 XR Chest 2 views Interpreted by: JEAN JAMES07/24/19 07:51MRN: [id number] Name: ROXANN RM JR STUDY:TH CHEST 2 [...] shadow. The interval stability from 2017 suggests benignetiology.Electronic ally signed by: PIPE JAMES 07/24/19 07:51 Normal -[employer]tol[employer] Work Phone: XR Chest 2 views Please click on the link to view the study images Normal -Otolaryn [employer] Work Phone: TSH - Thyroid Stimulating Ho yessica, Yoelon 07-23-2019 TSH Qn 3.90 {mIU/L} See Below [employer] de PacientesOtolaryn [employer] Work Phone: Comment on above: Reference Range: 0.4 4 - 3.98 TSH testing is performed using different testing methodology at [facility] than at other [facility] hospitals. Direct result comparisons should only be made within the same method.. Patients receiving more than 5 mg/day of biotin may have interference in test results. A sample should be taken no sooner than eight hours after previous dose. Contact [phone] for additional information. Vital Signs Date Time Vital Sign Value Performing Clinician Facility 06-05-2024 13:37-0400 Body temperature 98.3 [degF] MD Neo Singh Work Phone: [facility] 06-05-2024 13:37-0400 Body weight 55.33 kg MD Neo Singh Work Phone: [facility] 06-05-2024 13:37-0400 Diastolic blood pressure 73 mm[Hg] MD Neo Singh Work Phone: [facility] 06-05-2024 13:37-0400 Heart rate 71 /min MD Neo Singh Work Phone: [facility] 06-05-2024 13:37-0400 Respiratory rate 20 /min MD Neo Singh Work Phone: [facility] 06-05-2024 13:37-0400 SaO2% (BldA) [Mass fraction] 95 % MD Neo Singh Work Phone: [facility] 06-05-2024 13:37-0400 Systolic blood pressure 109 mm[Hg] MD Noe Singh Work Phone: [facility] 09-19-2023 16:16-0400 Body height 170.2 cm Apollo Lopes MD Work Phone: [facility] 09-19-2023 16:16-0400 Body mass index (BMI) [Ratio] 22.24 kg/m2 Apollo Lopes MD Work Phone: [facility] 09-19-2023 16:16-0400 Body weight 64.41 kg Apollo Lopes MD Work Phone: [facility] 06-21-2023 14:46-0400 Body height 170.99 cm MD Neo Singh Work Phone: [facility] 06-21-2023 14:46-0400 Body temperature 98.2 [degF] MD Neo Singh Work Phone: [facility] 06-21-2023 14:46-0400 Diastolic blood pressure 78 mm[Hg] MD Neo Singh Work Phone: [facility] 06-21-2023 14:46-0400 Heart rate 79 /min MD Neo Singh Work Phone: [facility] 06-21-2023 14:46-0400 Respiratory rate 20 /min MD Neo Singh Work Phone: [facility] 06-21-2023 14:46-0400 SaO2% (BldA) [Mass fraction] 96 % MD Neo Singh Work Phone: [facility] 06-21-2023 14:46-0400 Systolic blood pressure 137 mm[Hg] MD Neo Singh Work Phone: [facility] 12-28-2022 21:00-0500 Diastolic blood pressure 67 mm[Hg] Et3 [facility] 12-28-2022 21:00-0500 Heart rate 68 /min [facility] 12-28-2022 21:00-0500 Respiratory rate 18 /min [facility] 12-28-2022 21:00-0500 SaO2% (BldA) [Mass fraction] 76 % [facility] 12-28-2022 21:00-0500 Systolic blood pressure 112 mm[Hg] Et3 [facility] [employer] 09-20-2022 15:19-0400 0 1 Neo Singh Work Phone: DM-Stdiezvxxhyrmn-Zp [address] Work Phone: Comment on above: [employer] 09-20-2022 15:18-0400 Body height 170.18 cm Neo Gaylea Work Phone: QW-Xwjexzawwikiey-Qs [place] Work Phone: 09-20-2022 15:18-0400 Body mass index (BMI) [Ratio] 22.8 kg/m2 Neo Gaylea Work Phone: WP-Tkpivwbkymldjn-Cm [place] Work Phone: 09-20-2022 15:18-0400 Body surface area Derived from formula 1.77 m2 Neo Gaylea Work Phone: XD-Irvmngliaagbrk-Sm [address] Work Phone: 09-20-2022 15:18-0400 Body weight 66.03 kg Neo Gaylea Work Phone: LO-Peuylvgiamykgl-Zv [address] Work Phone: 03-31-2022 10:30-0400 Body height 170.18 cm Luis Moe Other [employer] Other 03-31-2022 10:30-0400 Body mass index (BMI) [Ratio] 22.71 kg/m2 Luis Moe Other [employer] Other 03-31-2022 10:30-0400 Body weight 65.77 kg Luis Moe Other [employer] Other 09-21-2021 13:36-0400 Body height 170.18 cm Neo Gonzalez Samantha Work Phone: XS-Ksboosccunmzlp-Nn [place] Work Phone: 09-21-2021 13:36-0400 Body mass index (BMI) [Ratio] 23.95 kg/m2 Neo Gonzalez Samantha Work Phone: FI-Wnbvlstqflcdkn-Gy [address] Work Phone: 09-21-2021 13:36-0400 Body surface area Derived from formula 1.8 m2 Ludmilaen Carlos [facility] Work Phone: OO-Jbanzlirnutuab-Zh [address] Work Phone: 09-21-2021 13:36-0400 Body temperature 96.8 [degF] Rugmurray Gonzalez Samantha Work Phone: KR-Rdtwcyuvrbhwxm-Gx [place] Work Phone: 09-21-2021 13:36-0400 Body weight 69.36 kg Rugmurray Gonzalez [facility] Work Phone: YT-Qqpdxheheqbvuz-Kf [address] Work Phone: 07-06-2021 15:59-0400 Body height 170.18 cm Rugmurray Gonzalez Samantha Work Phone: CF-Hzkpetknuywois-Jb [address] Work Phone: 07-06-2021 15:59-0400 Body mass index (BMI) [Ratio] 23.81 kg/m2 Neo Singh Work Phone: UI-Utidvpngxmwekg-Ds [address] Work Phone: 07-06-2021 15:59-0400 Body surface area Derived from formula 1.8 m2 Neo Singh Work Phone: AI-Ktxuexmekgctzm-Ao [place] Work Phone: 07-06-2021 15:59-0400 Body temperature 97.3 [degF] Neo Singh Work Phone: EK-Dzubtbeyywvdfq-Wj [place] Work Phone: 07-06-2021 15:59-0400 Body weight 68.95 kg Neo Singh Work Phone: KP-Rkgyghxvhgbxqq-Xx [place] Work Phone: Encounters Encounter Date Encounter Type Care Provider Facility Start: 06-10-2024 ambulatory Neo Singh Facility:[facility] Start: 06-10-2024 Encounter for other specified special examinations Mhlubna Escobar [facility] Start: 06-05-2024 End: 06-05-2024 ambulatory MD Neo Singh Work Phone: [facility] Work Phone: Start: 06-05-2024 End: 06-05-2024 Patient encounter procedure MD Neo Singh Work Phone: [facility] Ambulatory Work Phone: Start: 06-05-2024 Registered Recurring MD Neo Singh Work Phone: [facility] Acute Work Phone: Start: 05-29-2024 End: 05-29-2024 ambulatory MER CHEN Not Available Start: 05-21-2024 End: 05-21-2024 ambulatory CLAIRE LYNCH Not Available Start: 05-10-2024 End: 05-10-2024 ambulatory MD Neo Singh Work Phone: [facility] Work Phone: Start: 05-10-2024 End: 05-10-2024 Departed Referred MD Neo Singh Work Phone: [facility] Start: 04-30-2024 End: 04-30-2024 ambulatory NEO SINGH Not Available Start: 01-29-2024 End: 01-29-2024 ambulatory NEO SINGH Not Available Start: 10-30-2023 End: 10-30-2023 ambulatory NEO SINGH Not Available Start: 09-19-2023 End: 09-19-2023 Office outpatient visit 15 minutes Apollo Lopes MD Work Phone: [facility] Comment on above: 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); Acquired hypothyroidism; Oropharyngeal dysphagia Start: 09-19-2023 End: 09-19-2023 ambulatory [facility] Start: 01-16-2023 AUDIT Neo Singh Work Phone: QJ-Fwceakygacqnit-Odnto [address] Work Phone: Start: 12-28-2022 End: 01-22-2023 ambulatory [facility] Start: 12-28-2022 End: 12-28-2022 Emergency department patient visit [facility] Comment on above: Arrived Start: 12-26-2022 End: 12-27-[address] NEO SINGH Facility:[facility] Start: 12-20-2022 Rx Renewal Neo Singh Work Phone: LA-Munhinkfmxtiao-Sdmmn ake Work Phone: Start: 12-13-2022 End: 12-15-2022 Evaluation and management of inpatient DR ABILIO KAY Facility:[facility] Start: 09-30-2022 End: 09-30-2022 ambulatory MD Neo Singh Work Phone: [facility] Work Phone: Start: 09-30-2022 End: 09-30-2022 Patient encounter procedure MD Neo Singh Work Phone: [facility] [address] Start: 09-21-2022 Chart Update Neo Singh Work Phone: UJ-Nswfapwxmrygvh-Tpkrh donna Work Phone: Start: 09-20-2022 ambulatory MD ANDREA Goodman acility:[id number] Start: 09-20-2022 Office outpatient vi sit 15 minutes Neo Singh Work Phone: OY-Jdaoovdqnfceob-Ydbrj donna Work Phone: Start: 09-20-[address] APOLLO LOPES Fa cility:[id number] Start: 03-31-2022 End: 03-31-2022 ambulatory Luis Moe Other [employer] Other Start: 03-31-2022 Office outpatient vi sit 15 minutes Luis Moe [facility] V[facility] Surgery Start: 12-31-2021 End: 12-31-[address] DONYA PAREDES Facility:[facility] Start: 12-27-2021 Rx Renewal Neo Singh Work Phone: AO-Tswvdahhcjiveu-Skkvb [address] Work Phone: Start: 09-23-2021 Chart Update Neo Singh Work Phone: KJ-Rkfdibpjzvifcz-Xxeqv donna Work Phone: Start: 09-21-2021 Office outpatient vi sit 15 minutes Neo Singh Work Phone: EA-Juphzgzxipkfbi-Jwrsj donna Work Phone: Start: 08-16-2021 Rx Renewal Neo Singh Work Phone: KB-Fvxrazundzmchl-Tdzom ban Work Phone: Start: 07-06-2021 Office outpatient vi sit 15 minutes Neo Singh Work Phone: OM-Haxqbuhjzdejfz-Vlzjt donna Work Phone: Start: 08-04-2020 Patient encounter procedure Apollo Lavertu HG-Batchxgnstjmym-Asffq ban Work Phone: Start: 07-23-2019 Patient encounter procedure Apollo Lavertu TZ-Hxcxcproiovgsr-Amtim donna Work Phone: Start: 01-22-2019 Patient encounter procedure Apollo Lavertu KL-Oolstxbmowcftk-Ohiur donna Work Phone: Start: 08-21-2018 Patient encounter procedure Apollo Lavertu HN-Kmuucijmoawlsn-Pmjuj donna Work Phone: Start: 08-07-2018 Patient encounter procedure Apollo Lavertu KM-Jvbkcmblwrzjau-Cbqpo donna Work Phone: Start: 07-10-2018 Patient encounter procedure Apollo Lavertu TV-Axtnokzrjygwkr-Srfzh donna Work Phone: Start: 01-09-2018 Patient encounter procedure Apollo Lavertu DH-Xlyvncfvenlffx-Xfnxr donna Work Phone: Procedures Date Procedure Procedure Detail Performing Clinician Start: 06-10-2024 Carcinoembryonic antigen cea Issa Salas Comment on above: Result Comment: Cody ha tumor marker results determined by assays using different manufacturers or methods may not be comparable. [facility] radiology resident and method: PARISA UNICEL DXI, 2 SITE IMMUNOENZYMATIC ?SANDWICH? ASSAY. PERFORMED BY: [address] [place] [address] PATHOLOGIST MANAGER BAR PABLO ZHAO M.D. Performed By: #### C BC, CMP, CEA ####[place] [id number] [place] [id number] [facility]#### AFPTM, CA19 ####[facility] , Start: 06-21-2023 Screening for occult blood in feces MD Neo Singh Work Phone: Start: 06-20-2023 Thyrotropin [Units/v olume] in Serum or Plasma Apollo Lopes MD Work Phone: Start: 09-30-2022 CT of chest without contrast MD Neo Singh Work Phone: Start: 05-21-2021 CT of thorax with contrast MD Neo Singh Work Phone: History of Breast Surgery Pi didi Lopes History of Circumcis ion No Clamp/Device/Dorsal Slit Older Than 28 Days Apollo Lopes History of Gallbladd er Surgery Apollo Lopes History of Wound Car e Debridement Non-Selective Apollo Lopes Plan of Treatment Date Care Activity Detail Author Start: 09-17-2024 End: 09-17-2024 Patient encounter procedure 09/17/2024 4:30 PM EDT Office Visit [facility] [address] [place] [address] [place] [address] [place] [address] [facility] Start: 06-20-2024 Thyroid stimulating hormone measurement TSH Level [facility] Start: 06-05-2024 Patient referral [facility] Work Phone: Start: 09-19-2023 FUV, Provider: Apollo Lopes, Status: Pen, Time: 4:15 PM FUV, Provider: Apollo Lopes, Status: Pen, Time: 4:15 PM OZ-Tdrchxbuoodlfe-Ajcn lake Work Phone: Start: 07-28-2023 Influenza vaccination Influenza Vaccine (#1) [facility] Start: 09-20-2022 FUV, Provider: Apollo Lopes, Status: Pen, Time: 2:40 PM FUV, Provider: Apollo Lopes, Status: Pen, Time: 2:40 PM UO-Uqtlyvtqrpxtfi-Ffrq [place] Work Phone: Start: 08-27-2022 Influenza vaccination Influenza Vaccine (#1) [facility] Start: 12-23-2021 COVID-19 Vaccine (4 - Pfizer series) COVID-19 Vaccine (4 - Pfizer series) [facility] Start: 09-21-2021 FUV, Provider: Apollo Lopes, Status: Pen, Time: 1:40 PM FUV, Provider: Apollo Lopes, Status: Pen, Time: 1:40 PM PC-Yvsnyantworxmv-Opld [place] Work Phone: Start: 05-04-2021 Pneumococcal Vaccine: 65+ Years (2 - PPSV23 or PCV20) Pneumococcal Vaccine: 65+ Years (2 - PPSV23 or PCV20) [facility] Start: 02-10-2017 Pneumococcal vaccination Pneumococcal Vaccine(s) (65+ yrs) (1 - PCV) [facility] Start: 02-10-2002 Measurement of occult blood in single stool specimen FIT [facility] Start: 02-10-2002 Screening for malignant neoplasm of colon CRC Screening [facility] Start: 02-10-2002 Shingles (RZV) Vaccine (1 of 2) Shingles (RZV) Vaccine (1 of 2) [facility] Start: 02-10-2002 Zoster Vaccines (1 of 2) Zoster Vaccines (1 of 2) [facility] Start: 02-10-1987 Lipid panel Cholesterol [facility] Start: 02-10-1974 DTaP/Tdap/Td Vaccines (1 - Tdap) DTaP/Tdap/Td Vaccines (1 - Tdap) [facility] Start: 02-10-1970 Diabetes mellitus screening Diabetes Screening [facility] Start: 02-10-1970 Hepatitis C screening [facility] Start: 02-10-1970 Tetanus + diphtheria + acellular pertussis vaccine (product) Tdap Booster [facility] Start: 1950 COVID-19 Vaccine (#1) COVID-19 Vaccine (#[facility]) [facility] Start: 1950 Lipid panel Lipid Panel [facility] Start: 1950 Medicare Annual Wellness Visit Medicare Annual Wellness Visit (AWV) [facility] Start: 1950 Screening for malignant neoplasm of colon [facility] Bvrvy-6-uuhhlzanvdg. tumo r marker [Mass/volume] in Serum or Plasma [facility] Cancer Ag 19-9 [Units/volume] in Serum or Plasma [facility] Comprehensive metabo lic 1999 panel - Serum or Plasma [facility] Comprehensive metabo lic 1999 panel - Serum or Plasma [facility] CT guided biopsy [facility] Patient referral [facility] Work Phone: [facility] Immunizations Immunization Date Immunization Notes Care Provider Fa cility 05-04-2020 pneumococcal conjuga te vaccine, 13 valent Apollo Lopes MD Work Phone: [facility] Work Phone: 12-16-2017 Seasonal trivalent influenza vaccine, adjuvanted, preservative free Apollo Lopes MD Work Phone: [facility] Work Phone: 12-16-2017 influenza virus vaccine, unspecified formulation Apollo Lopes MD Work Phone: [facility] Work Phone: Payers Date Payer Category Payer Self-pay [id number] 2022 Unknown [id number] 2019 Medicare HUMANA MEDICARE HUMANA GOLD CHOICE [id number] 2019-Present [address] [address] [place] [address] [id number] 1959 Medicare [id number] 1952 Unknown [id number] 2.16.840.1.201559.3.579.2 .356 1952 Unknown [id number] 2.16.840.1.148510.3.579.2 .356 1952 Unknown [id number] 2.16.840.1.996953.3.579.2 .593 1952 Unknown [id number] 2.16.840.1.069077.3.579.2 .593 1952 Unknown [id number] 2.16.840.1.666138.3.579.2 .593 1952 Unknown [id number] 2.16.840.1.481878.3.579.2 .732 1952 Unknown [id number] 2.16.840.1.754221.3.579.2 .1244 1952 Unknown [id number] 2.16.840.1.508471.3.579.2 .1259 1952 Unknown [id number] 2.16.840.1.925794.3.579.2 .1259 1952 Unknown [id number] 2.16.840.1.764575.3.579.2 .1259 1952 Unknown [id number] 2.16.840.1.246132.3.579.2 .1259 1952 Unknown [id number] 2.16.840.1.372973.3.579.2 .1259 1952 Unknown [id number] 2.16.840.1.744141.3.579.2 .1259 Medicare Medicare [id number] Medicare Medicare [id number] Private Health Insurance [facility] [id number] Unknown Unknown [id number] 2.16.840.1.650757.3.579.2 .531 Unknown [id number] 2.16.840.1.059509.3.579.2 .531 Social History Date Type Detail Facility Start: 09-19-2023 Drinks [facility] Start: 09-19-2023 Sex Assigned At [employer] Other Start: 06-16-2022 End: 06-16-2022 Tobacco smoking status TXIS Never smoked tobacco (finding) [facility] Start: 1950 Sex Assigned At Male [facility] Tobacco smoking status [facility] Tobacco smoking consumption unknown [facility] Start: 1950 Sex Assigned At Not on file [facility] Start: 09-19-2023 Tobacco use and exposure Smokeless tobacco non-user [facility] Work Phone: Start: 09-09-2023 End: 09-19-2023 Exposure to SARS-CoV-2 (event) Not sure [facility] NEGATED: Highlighted row - - FA-Cnytkwxkxmlvbi-[facility]w [facility] [place] Work Phone: Functional Status Date Assessment Result Facility NEGATED: Highlighted row Functional performance Functional status health issues are not documented Disease GJ-Xnxrobokqfusmj-P [place] Work Phone: Mental Status Date Assessment Result Facility NEGATED: Highlighted row Cognitive function [Interpretation] Cognitive status health issues are not documented Disease QI-Oylwkdvejupiee-D [place] Work Phone: Clinical Notes 06-02-2014 to [...] any mucosal lesions. documented in this encounter [facility] Work Phone: 12-28-2022 History of Present illness Narrative Images from the original note were not included. EMERGENCY TRIAGE, TREAT AND TRANSPORT (ET3) DOCUMENTATION OF TELEHEALTH VISIT Date / Time: 12/28/20222099 Name: Roxann Rm : 1950 SSN: (Not on file) EMS Agency: [facility] [x] Verbal consent obtained [] [...] Em Staples MD documented in this encounter [facility] 03-31-2022 Evaluation note Encounter Date Diagnosis Assessment [...] any further surveillance of his carotid arteries. [employer] Other 02-04-2022 NoteOPERATIVE NOTE PREOPERATIVE DIAGNOSIS: Anemia. POSTOPERATIVE DIAGNOSIS: Gastritis, sigmoid diverticulosis. PROCEDURE PERFORMED: EGD with biopsy x1 from the antrum of the stomach, colonoscopy. SURGEON: Donya Paredes M.D. ANESTHESIA: Monitored anesthesia care. [facility] PROCEDURE: Patient was brought [...] have a repeat colonoscopy in five years. [facility] Signed and Approved by: DR DONYA PAREDES . 01/08/2022 14:40:00[facility]02-04-2022 NoteOPERATIVE NOTE PREOPERATIVE DIAGNOSIS: Anemia. POSTOPERATIVE DIAGNOSIS: Gastritis, sigmoid diverticulosis. PROCEDURE PERFORMED: EGD with biopsy x1 from the antrum of the stomach, colonoscopy. SURGEON: Donya Paredes M.D. ANESTHESIA: Monitored anesthesia care. DISPOSITION: To [facility]. PROCEDURE: Patient was brought in to [...] have a repeat colonoscopy in five years.[id number] History of Present illness NarrativeThileni patient had [...] morning. He does have some slight throat soreness.NS-Ehqgwfvevbiezv-Woezmjjy Work Phone: 1(919) 754-197307-07-2014 History of Present illness NarrativeThis patient had [...] was also in August 2020 and was negative.FQ-Vqbrouwsvfdorf-Uqedzqej Work Phone: 1(977) 797-704907-07-2014 History of Present illness NarrativeThis patient had [...] was also in August 2021 and was negative.VF-Btrdrtklkshzdd-Aoieyzqy Work Phone: Evaluation noteNo assessment information available [facility] Work Phone: Evaluation note* Diagnosis Lightheaded- Primary Dizziness and giddiness Hypoxia Hypoxemia [facility] 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)- Primary 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, part unspecified Acquired hypothyroidism Unspecified hypothyroidism Oropharyngeal dysphagia Dysphagia, oropharyngeal phase documented in this encounter [facility] Work Phone: Evaluation note* Diagnosis Onset Date Resolution Status Sinus congestion acute Anemia chronic Hypothyroid chronic Skin cancer of scalp chronic 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 resolved Colon cancer acute 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 resolved [facility] Work Phone: History general Narrative - Reported* Type Description Date Medical History DM 2 Medical History Hx of skin cancer Medical History hyperlipidemia Medical History hypertension Medical History tongue cancer Surgical History Right knee arthroscopy Surgical History rotator cuff repair Surgical History tongue resection [employer] Other Hospital Discharge instructionsAmbulatory Orders* Oncology Histology Time Frame: 1 Day, Location: Determined By Patient [facility] Work Phone: Progress note Author Tiffany Escobar [facility] June 05, 2024 2:41pm Note Date/Time June 05, 2024 1:33 pm [facility] [place] [address] Cancer Center Note Signed Patient: Roxann Rm MR#: [id number] : 1950 Acct:[id number] Age/Sex: 74 / M Type: REG AMB Date of Service: 06/05/24 Copies to: Neo Singh MD~ Assessment & Plan A/P (1) Colon cancer: (2) Metastasis to liver: (3) 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: Plan (1) 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 1. 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 Hecontinues follow up with Dr. Lopes on an annual basis. His next follow up will be in August 2022; no evidence of recurrence on exam inOcto2020 and chest x ray was negative for evidence of recurrence. He had Chest CT done in April 2021 for chronic cough, concern for aspiration with some findings of interstitial changes; but no evidence of recurrence. 2. Macrocytic anemia of unclear etiology patient did not tolerate oral iron in the past as it caused him constipation with black stool. He is also mildly leukopenic and mildly not neutropenic with ANC 1.7 and WBC of 3.7 but is a platelet is normal. He is taking 500 mg of B12 daily. The plan is will check the following now: Iron studies, B12, folate, copper level, reticulocyte count, LDH and check occult blood in the stool and urinalysis micro and if they are unremarkable then we will follow his CBC with differential every 3 months and see him back in 1 year. We will call him with abnormal results and any further testing needed based on the results of the current labs or future labs and for any further plan of care for his anemia and mild leukopenia. Differential diagnosis could be nutritional deficiency versus blood loss versus MDS. 3. Now new right mid ascending colon mass that is at least high-grade adenomatous polyp on colonoscopy done on 05/10/2024. CAT scan is suspicious for metastatic disease to the liver and lymph node around the right colon as well asto the lower lungs. Please see the HPI above for complete details of the new right colon mass with pictures consistent with metastatic disease to the liver lung and lymph nodes. Plan: I offered him to repeat colonoscopy by colorectal surgery at at however he said that he is having problems drinking that: Clean cell because of his lung cancer and he has to be a thick liquid. Colonoscopy was done with enemas at [facility]. I would say at this point will refer him to colorectal surgeon but we will try to see if we can get an answer by doing a liver CT-guided biopsy by IR to confirm this is metastatic disease to the liver from colon cancer. We need to send that to NGS. We also need to send for MSI status. Will also have the path from the colonoscopy done on 05/10/2024 reviewed by [facility] pathology. Will also do PET CT scan as soon as possible. Will also do CEA, alpha-fetoprotein and CA 19-9. Have him come back in 3 weeks for the results. I discussed with him that he might need chemotherapy but is not sure about chemotherapy at this point. He can be offered FOLFOX, for possible Avastin or even just 5-FU every 2 weeks. Orders: Orders PET tumor init tx strat sb-mt 3 Days C02.3 - 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, part unspecified, C18.9 - Malignant neoplasm of colon, unspecified, C78.7 - Secondary malignant neoplasm of liver and intrahepatic bileduct, Z01.89 - Encounter for other specified special examinations Carcinoembryonic Antigen 3 Days C02.3 - Malignant neoplasm of anterior two- thirds of tongue, part unspecified, C18.9 - Malignant neoplasm of colon, unspecified, C78.7 - Secondary malignant neoplasm of liver and intrahepatic bileduct, Z01.89 - Encounter for other specified special examinations AFP Tumor Marker, Serum 3 Days C02.3 - Malignant neoplasm of anterior two- thirdsof tongue, part unspecified, C18.9 - Malignant neoplasm of colon, unspecified, C78.7 - Secondary malignant neoplasm of liver and intrahepatic bile duct, Z01.89- Encounter for other specified special examinations Carbohydrate Antigen 19-9 3 Days C02.3 - Malignant neoplasm of anterior two- thirds of tongue, part unspecified, C18.9 - Malignant neoplasm of colon, unspecified, C78.7 - Secondary malignant neoplasm of liver and intrahepatic bileduct, Z01.89 - Encounter for other specified special examinations Complete Blood Count Auto Diff 3 Days C02.3 - 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, part unspecified, C18.9 - Malignant neoplasm of colon, unspecified, C78.7 - Secondary malignant neoplasm of liver and intrahepatic bileduct, Z01.89 - Encounter for other specified special examinations Comprehensive Metabolic Panel 3 Days C02.3 - 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, part unspecified, C18.9 - Malignant neoplasm of colon, unspecified, C78.7 - Secondary malignant neoplasm of liver and intrahepatic bileduct, Z01.89 - Encounter for other specified special examinations CT guided biopsy 3 Days C02.3 - 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, part unspecified, C18.9 - Malignant neoplasm of colon, unspecified, C78.7 - Secondary malignant neoplasm of liver and intrahepatic bile duct, Z01.89- Encounter for other specified special examinations Referrals Referral to Colorectal Surgery C02.3 - 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, part unspecified, C18.9 - Malignant neoplasm of colon, unspecified, C78.7 - Secondary malignant neoplasm of liver and intrahepatic bile duct,Z01.89 - Encounter for other specified special examinations Medications: Discontinued pseudoephedrine-guaifenesin 60-600 mg ER (Mucinex D) Discontinued Reason: Patient no longer taking 1 tab PO Q12H 60 tabs 0RF Patient Instructions: PET scan cea,ca19-9,afp IR CT bx of liver lesion NGS testing on path consult colorectal surgery to repeat colonoscopy in 3 weeks return in 3 weeks CHEMO PLAN No Active Chemotherapy History of Present Illness HPI Chief Complaint: Patient is here for a 1 year follow up for tongue cancer. He was also just diagnosed with right mid ascending colon mass that is per colonoscopy with biopsy high grade adenomatour polyp at least. HPI: 06/16/2022: Here for annual follow; completed therapy approximately 8 years ago. He still has occasional cough with phlegm production; occasionally gets a blood streak in his sputum, but reports that this has been ongoing for quite some timeand his ENT surgeon Dr. Lopes is aware. He apparently had a cough and associated wheezing at his follow-up visit last April [address] a [address] chest, which was subsequently negative for malignancy. He continues to follow up with Dr. Lopes annually?next appointment in August 2022. At his last appointment on 09/22/2021; chest x-ray was negative for evidence of recurrence. He also gets a scope once a year. He denies headaches, fever/chills, night sweats, lymphadenopathy, weight loss, changes in appetite, abdominal pain, dysphagia, cough, chest pain or shortness of breath. 06/20/23: Patient is here for 1 year follow-up for his history of tongue cancer. He completed his cancer treatment 9 years ago. He continues to have this chronic intermittent cough with occasional blood tinged phlegm of a small amount. He was evaluated by CT of the chest and 09/30/2022 and was not concerning for metastatic disease. He sees Dr. Lopes every August and he was seen in 2021 and was unremarkable and was not concerning for recurrent disease by flex rhino laryngoscopy. His labs at this time revealed worsening anemia with hemoglobin of 9.4 and borderline leukopenia with a WBC of 3.7 but with normal platelet count of 190. His TSH is normal. Patient complains of fatigue and similar chronic cough like before with some dyspnea with exertion which could be relatedto his anemia but no chest pain. He denies any new masses in his mouth or any new complaints otherwise. 06/05/24: Patient is here for 1 year follow-up for his history of tongue cancer. He completed his cancer treatment 10 years ago. He was evaluated by CT of the chest and 09/30/2022 and was not concerning for metastatic disease. He sees Dr. Lopes every August and he was seen in 2021 and was unremarkable and was not concerning for recurrent disease by flex rhino laryngoscopy. He presented to the emergency room at [facility] for abdominal pain and frequent urination. Workup as inpatient revealed colonic mass along the mid ascending colon measuring 3.4 cm highly suspicious for malignancy on the CAT scan of the abdomen. There are some lymph nodes adjacent to this region as well. There were some hypodense lesions of the liver and noncalcified nodules of the lower chest bilaterally which are suspicious for metastatic disease. He did have a pneumonia or findings suspicious for pneumonia on the chest x-ray as well and treated at that point for pneumonia He was also evaluated recently for anemia with diagnostic EGD and Colonoscopy done on 05/10/24. findings highly concerning as pathology revealed gastritis, esophagitis with yeast infection and at least high grade adenomatous polyp in the right mid colon. CT scans of abd was done in April 2024 which revealed 3.4 cm right colon mass with couple of surrounding lymph nodes. There are some lungnodules that are concerning for metastatic disease as well on the CT scans. in April 2024. His labs were concerning for transaminitis as well. With the presence of the above findings and concern for possible metastatic disease General surgery there were consulted and patient underwent colonoscopy on 05/10/2024 which revealed a colonic mass in the mid ascending colon pathology of which revealed at least high-grade adenomatous polyp as per biopsy. CAT scan of abdomen and pelvis mass on the mid ascending colon measuring 3.4 x 2.3 x 2.4 cm highly suspicious for malignancy. There is or mild stranding densities within the pericolonic fat adjacent to this which track inferiorly through the right colonic gutter. There are a few lymph nodes adjacent to this area measuring 1.3 x 1.1 cm and 1.0 x 0.6 cm suspicious for metastatic disease. There are several noncalcified nodules within the lower chest bilaterally measuring up to 1.9 cm on the right and 1.5 cm in the left suspicious for metastatic disease. CAT scan of the chest was recommended. There are numerous hypodense lesions scattered throughout the liver ranging in size from 0.4 cm to 4.1 cm highly suspicious for metastatic disease. There are consolidation suggesting of atelectasis and pneumonia in both lower lobes as well. The bowel gas pattern was nonobstructive with a large amount of stool within the colon. Patient has also diverticulosis without diverticulitis. And he has mild circumferential thickening of the urinary bladder wall and moderate enlargement of the prostate gland as well. Therefore patient is seeing medical oncology daily not just for the yearly surveillance for the history of tongue cancer in 2012 but also for the new rightmid ascending colon mass with surrounding fluid and several liver lesions and bilateral lung nodules suspicious for metastatic disease. The biopsy however did not reveal invasive carcinoma. Patient with prior colonoscopy was 20 to 30 years ago. He was evaluated by general surgery at [facility]. The patient wanted autumn treated for this cancer even if it stage IV colon cancer with possible liver and lung mets and pericolonic lymph nodes. If this is confirmed stage IV then surgery would not be an option. He was seen by oncology as inpatient here at [facility] and they recommended can try 5-FU every 2 weeks. And once confirmed of invasive cancer then NGS and MSI status need to be checked. He wasseen by Dr. Harper medical oncologist at [facility]. Rest of the review of systems negative. Intake Vitals/Pain Assessment 06/05/24 13:37 Weight 55.338 kg BP 109/73 Blood Pressure Location Lt brachial Position Sitting Temp 98.3 F Temp Source Temporal Pulse 71 Pulse Source NIBP Respiration 20 Pulse Oximetry (%) 95 Oxygen Delivery Method room air Are you having pain? No Intake Visit Reasons: 1 year follow up, tongue cance Accompanied by: Spouse Allergies latex Allergy (Verified 06/21/23 14:46) Rash - Last Reconciled 06/05/24 by Chante Lange ascorbic acid (vitamin C) (Vitamin C) 500 mg PO DAILY aspirin 81 mg PO DAILY atorvastatin 40 mg PO DAILY cyanocobalamin (vitamin B-12) 500 mcg PO DAILY dicyclomine 20 mg PO TID fluticasone furoate 27.5 mcg/actuation (Flonase Sensimist) 1 spray intranasal DAILY furosemide 20 mg PO Q48HR hydralazine 10 mg PO QID levothyroxine 75 mcg PO DAILY metformin 500 mg PO DAILY omeprazole 40 mg PO DAILY Gastrointestinal Is the patient taking opioids for pain control?: No Bowel Protocol for Opioids Given: No Bowel Pattern: Regular Bowel Movement Aid(s): None Falls Fall Precaution Measures Taken: Patient in chair Nurse's Note: Patient is here for a one year follow up, previously seen by Taisha Carvalho and Gracia.Patient's brought in imaging reports today from [facility]. [facility] Medical History Medical History (Updated 06/05/24 @ 14:34 by Tiffany Escobar MD) Metastasis to liver Colon cancer Family History Family History (Updated 03/31/22 @ 09:41 by Provider Conversion) Father Family/Other Legacy FamHx Problem: 1 sister is Mother Social History Social History Smoking status: Never smoker Review of Systems ROS Details: All systems reviewed & no additional complaints except as documented General: Patient denied fevers, chills, rigors, weight loss or loss of appetite. Head: Patient denied any headaches or vision changes Thoracic: Patient denied any shortness of breath or cough or hemoptysis Cardiovascular patient denies any chest pain or leg edema GI: Patient denies any nausea vomiting rectal bleed diarrhea : Patient denied gross hematuria. Hematology: Patient denied any bleeding from any source. No easy bruising. Lymphatic: No enlarged LAP anywhere. Skin: Normal skin exam no rashes or suspicious lesions. Neurological patient denies any headache or dizziness or focal weakness or sensory changes. Physical Exam EXAM HEENT normocephalic atraumatic pupils are equal and round. Prior hemiglossectomynoted. Cobblestoning on the oropharynx noted. Neck supple without thyromegaly or any cervical lymphadenopathy. Chest clear to auscultation bilaterally without wheezing crackles or rhonchi Heart regular rate and rhythm S1-S2 without murmurs gallop or rub Abdomen soft nontender not distended without hepatosplenomegaly or masses clinically Extremities no edema of the lower extremities Skin without any suspicious rashes Lymphatic system no lymphadenopathy in the cervical area axillary areas or inguinal areas bilaterally Neurological exam patient is cooperative alert and oriented x3 no focal deficits. [facility] - [facility] RESULTS No Data to Display Dictated By: Tiffany Escobar MD DD/ [id number] Signed By: <Electronically signed by Tiffany Escobar MD> 06/05/24 1441 [facility] Work Phone: Family History No Family History Records Found [...] Unknown family member Unknown Not Specified Unknown Relationship Condition Age at Onset Recorded Date/T familia father Unknown family member Unknown mother Unknown Chief Complaint Follow-up status post treatment [...] Visit Chief Complaint r93.89 Chief Complaint Unknown Chief Complaint Unknown Tongue Cancer Reason for Visit Sinus congestion Anemia Hypothyroid Skin cancer of scalp 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 Colon cancer Metastasis to liver 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 Additional Source Comments (unrecognized sect ion and content) No Status Records FoundNo Status Records FoundNo Status Records FoundNo Status Records FoundNo Status Records FoundNo Status Records FoundNo Status Records FoundNo Status Records FoundNo Status Records Found INFORMATION SOURCE (unrecogn ized section and content) DATE CREATED AUTHOR 12/22/2021 [facility] DATE CREATED AUTHOR AUTHOR'S ORGANIZ ATION 09/21/2022 [employer] DATE CREATED AUTHOR AUTHOR'S ORGANIZ ATION 10/11/2022 [facility] DATE CREATED AUTHOR AUTHOR'S ORGANIZ ATION 12/29/2022 [facility] DATE CREATED AUTHOR AUTHOR'S ORGANIZ ATION 01/22/2023 [facility] DATE CREATED AUTHOR AUTHOR'S ORGANIZ ATION 05/18/2024 [facility] DATE CREATED AUTHOR AUTHOR'S ORGANIZ ATION 05/30/2024 [facility] DATE CREATED AUTHOR AUTHOR'S ORGANIZ ATION 06/15/2024 [facility] DATE CREATED AUTHOR AUTHOR'S ORGANIZ ATION 06/16/2024 [facility] REASON FOR VISIT (unrecogniz ed section and [...] Active Apollo Lopes MD Attending Provider Active User Experience Lead Relationship Specialty Start Date End Date Neo Singh MD [address] [place] [address] PCP - General 05/15/14 Irina Wesley MD [address] [place] [address] Referring Physician Otolaryngology 09/18/23 Team Status: Active Member Role Status Dates Deven Landin MD Other Provider Active Start: May 272023 Neo Singh MD Primary Care Provider Active S tart: June 05, 2024 Tiffany Escobar MD Attending Provider Active Start: June 05, 2024 Team Status: Inactive Member Role Status Dates Neo Singh MD Primary Care Provider Active S tart: June 05, 2024 End: June 05, 2024 Tiffany Escobar MD Attending Provider Active Start: June 05, 2024 End: June 05, 2024 Goals (unrecognized section and content) Goals may [...] BE BASED ON THE PRIMARY CLINICAL RECORDS. [employer] provides no warranty or guarantee of the accuracy or completeness of information in this document.
[2024-06-19 02:21] LABS: Basophils Percent Auto 0.2 % (0.2-2.0); Eosinophils Percent Auto 0.2 % (0.9-7.0); Hematocrit 36.4 % (42.0-54.0); Hemoglobin 11.4 g/dL (14.0-18.0); Immature Granulocytes Abs Auto 0.01 10^3/uL (0.00-0.03); Immature Granulocytes Pct Auto 0.2 % (0.0-0.5); Lymphocytes Absolute Auto 0.7 10^3/uL (1.2-3.8); Lymphocytes Percent Auto 14.1 % (20.5-60.0); Mean Corpuscular HGB Conc 31.3 g/dL (29.9-35.2); Mean Corpuscular Volume 89.4 fL (80.0-94.0); Mean Platelet Volume 9.3 fL (9.5-13.5); Monocytes Absolute Auto 0.4 10^3/uL (0.3-0.8); Monocytes Percent Auto 9.4 % (1.7-12.0); Neutrophils Absolute Auto 3.6 10^3/uL (1.4-6.5); Neutrophils Percent Auto 75.9 % (43.0-75.0); Platelet Count 229 10^3/uL (150-450); Red Blood Count 4.07 10^6/uL (4.70-6.10); Red Cell Distribution Width 16.1 % (11.0-15.0); White Blood Count 4.7 10^3/uL (4.0-11.0)
--- NOTE | 2024-06-19 02:30 | ED.GENADUL1 ---
HPI HPI - General Adult General Chief complaint: Shortness of Breath/Dyspnea Stated complaint: SOB Time Seen by Provider: 06/19/24 01:59 Source: other Source information: EMS Mode of arrival: ambulance History of Present Illness HPI narrative: 74-year-old male presents for generalized weakness. The patient is unable to provide any history. Initially the paramedics gave the history and then later the came and she gave additional history. He was scheduled for a colonoscopy today and was doing the prep yesterday and as the day went on he was having large amounts of diarrhea and became increasingly weak. It got to the point where he could not walk and he seemed to be having shortness of breath. Paramedics were called and they transported him here. They reported an O2 sat of 80% and gave him an aerosol treatment and placed him on oxygen. Upon arrival and his O2 sat was in the upper 90s and he could not give us any history. His reports that he was recently in this hospital, about a month ago, and had aspiration pneumonia. Related Data Home Medications ?Medication ?Instructions ?Recorded ?Confirmed aspirin 81 mg chewable tablet 1 tab PO .qd 05/06/24 05/23/24 atorvastatin 40 mg tablet 40 mg PO .qd 05/06/24 05/23/24 fluticasone fur. 100 mcg-umeclid 1 inh inhalation Q24H 05/06/24 05/23/24 62.5 mcg-vilant 25 mcg inhalat.powder (Trelegy Ellipta) levothyroxine 75 mcg tablet 75 mcg PO .qd 05/06/24 05/23/24 dicyclomine 20 mg tablet 20 mg PO TIDWM 05/23/24 05/23/24 furosemide 20 mg tablet 20 mg PO Q48H 05/23/24 05/23/24 hydralazine 10 mg tablet 10 mg PO Q6H PRN hypertension 05/23/24 05/23/24 metformin 500 mg tablet 500 mg PO DAILY 05/23/24 05/23/24 omeprazole 40 mg capsule,delayed 40 mg PO BID 05/23/24 05/23/24 release ondansetron HCl 4 mg tablet 4 mg PO Q6H PRN nausea and vomiting 05/23/24 05/23/24 Previous Rx's ?Medication ?Instructions ?Recorded clindamycin HCl 300 mg capsule 300 mg PO Q8H 7 days #21 caps 05/26/24 fluconazole 200 mg tablet 400 mg (2 x 200 mg) PO DAILY 12 05/26/24 days #24 tabs Allergies Allergy/AdvReac Type Severity Reaction Status Date / Time latex Allergy Intermediate Verified 05/22/24 18:41 Opioid HPI Opioid Management Most Recent Opioid Data: Last Pain Scale 0 05/25/24 23:25 Last Pain Intensity 3 05/25/24 10:09 Last ORT Total Score 0 05/22/24 23:07 Last ORT Risk Category Low Risk 05/22/24 23:07 Review of Systems ROS Narrative Not obtainable, [facility]verbal [facility] History (Updated 06/19/24 @ 03:04 by Alan Khan MD) Severe malnutrition ?E43 - Unspecified severe protein-calorie malnutrition (ICD-10) Esophageal candidiasis ?B37.81 - Candidal esophagitis (ICD-10) Aspiration pneumonia ?J69.0 - Pneumonitis due to inhalation of food and vomit (ICD-10) Macrocytic anemia ?D53.9 - Nutritional anemia, unspecified (ICD-10) Esophagitis determined by endoscopy ?K20.90 - Esophagitis, unspecified without bleeding (ICD-10) Mass of colon ?K63.89 - Other specified diseases of intestine (ICD-10) Metastatic colon cancer to liver ?C18.9 - Malignant neoplasm of colon, unspecified (ICD-10) ?C78.7 - Secondary malignant neoplasm of liver and intrahepatic bile duct (ICD-10) Metastatic cancer to lung of unknown cell type ?C78.00 - Secondary malignant neoplasm of unspecified lung (ICD-10) Anemia due to blood loss, chronic ?D50.0 - Iron deficiency anemia secondary to blood loss (chronic) (ICD-10) Moderate protein-calorie malnutrition ?E44.0 - Moderate protein-calorie malnutrition (ICD-10) Dysphagia ?R13.10 - Dysphagia, unspecified (ICD-10) History of tongue cancer ?Z85.810 - Personal history of malignant neoplasm of tongue (ICD-10) Type 2 diabetes mellitus with hyperglycemia ?E11.65 - Type 2 diabetes mellitus with hyperglycemia (ICD-10) PVD (peripheral vascular disease) ?I73.9 - Peripheral vascular disease, unspecified (ICD-10) Benign essential hypertension ?I10 - Essential (primary) hypertension (ICD-10) Transaminitis ?R74.01 - Elevation of levels of liver transaminase levels (ICD-10) Anemia ?D64.9 - Anemia, unspecified (ICD-10) Asthma ?J45.909 - Unspecified asthma, uncomplicated (ICD-10) Hyperlipidemia ?E78.5 - Hyperlipidemia, unspecified (ICD-10) Hypothyroidism ?E03.9 - Hypothyroidism, unspecified (ICD-10) Intraparenchymal hemorrhage of brain ?I61.9 - Nontraumatic intracerebral hemorrhage, unspecified (ICD-10) Family History (Updated 05/22/24 @ 23:17 by Cate Boles RN) Mother Family history of cancer Father Family history of cancer Sister Family history of diabetes mellitus Social History (Updated 05/22/24 @ 23:18 by Cate Boles RN) Within the past year, how often did you have a drink containing alcohol: never Score interpretation: A score less than 4 is consistent with normal alcohol consumption. Smoking status: Never smoker Non-prescribed substance use: denies use Highest level of school completed/degree received: decline to answer Are you now , , , , never or living with a partner: Do you think of yourself as: straight/heterosexual Gender Identity: male Exam Narrative Exam Narrative: Nurses note and vital signs reviewed and patient is not hypoxic. General: The patient is not in respiratory distress but appears generally weak. Skin: Warm, dry, no pallor noted. There is faint rash across his anterior torso Head: Normocephalic, atraumatic Eye: Normal conjunctiva, no drainage Ears, Nose, Mouth, and Throat: oral mucosa is quite dry. Nares patent. Cardiovascular: Regular Rate and Rhythm, tachycardic Respiratory: Breath sounds are equal bilaterally with good air movement. Back: non-tender GI: Soft and nontender Musculoskeletal: The patient has no evidence of calf tenderness, no pitting edema, symmetrical pulses noted bilaterally Neurological: He is awake and blinking but he is nonverbal. He does not seem to follow commands. Psychiatric: Cannot be assessed Constitutional Vital Signs, click to edit/add: Last Vital Signs Temp 99.0 F 06/19/24 01:55 Pulse 122 H 06/19/24 01:55 Resp 19 06/19/24 01:55 BP 179/115 H 06/19/24 01:55 Pulse Ox 95 06/19/24 02:18 O2 Del Method Nasal Cannula 06/19/24 02:18 O2 Flow Rate 3 06/19/24 02:18 Course Vital Signs Vital signs: Vital Signs Temperature 99.0 F 06/19/24 01:55 Pulse Rate 122 H 06/19/24 01:55 Respiratory Rate 19 06/19/24 01:55 Blood Pressure 179/115 H 06/19/24 01:55 Pulse Oximetry 99 06/19/24 01:55 Oxygen Delivery Method Nonrebreather 06/19/24 01:55 Oxygen Delivery Flow Rate 15 06/19/24 01:55 Temperature 99.0 F 06/19/24 01:55 Pulse Rate 122 H 06/19/24 01:55 Respiratory Rate 19 06/19/24 01:55 Blood Pressure 179/115 H 06/19/24 01:55 Pulse Oximetry 95 06/19/24 02:18 Oxygen Delivery Method Nasal Cannula 06/19/24 02:18 Oxygen Delivery Flow Rate 3 06/19/24 02:18 Medical Decision Making MDM Narrative Medical decision making narrative: Radiologist has read his x-ray as having right lower lobe pneumonia. Blood cultures were obtained and he was given IV antibiotics. Clindamycin was added with a concern of aspiration. Lactic acid is pending at the time of this dictation. Findings are discussed with his . Differential Diagnosis Differential Diagnosis: Pneumonia, dehydration Lab Data Lab results reviewed: Yes I reviewed the patient's lab results Labs: Lab Results 06/19/24 Range/Units 02:05 WBC 4.7 (4.0-11.0) 10^3/uL RBC 4.07 L (4.70-6.10) 10^6/uL Hgb 11.4 L (14.0-18.0) g/dL Hct 36.4 L (42.0-54.0) % MCV 89.4 (80.0-94.0) fL MCH 28.0 (25.9-34.0) pg MCHC 31.3 (29.9-35.2) g/dL RDW 16.1 H (11.0-15.0) % Plt Count 229 (150-450) 10^3/uL MPV 9.3 L (9.5-13.5) fL Neut % (Auto) 75.9 H (43.0-75.0) % Lymph % (Auto) 14.1 L (20.5-60.0) % [place] % (Auto) 9.4 (1.7-12.0) % Eos % (Auto) 0.2 L (0.9-7.0) % Baso % (Auto) 0.2 (0.2-2.0) % Neut # (Auto) 3.6 (1.4-6.5) 10^3/uL Lymph # (Auto) 0.7 L (1.2-3.8) 10^3/uL [place] # (Auto) 0.4 (0.3-0.8) 10^3/uL Eos # (Auto) 0.0 (0.0-0.7) 10^3/uL Baso # (Auto) 0.0 (0.0-0.1) 10^3/uL Abs Immat Gran (auto) 0.01 (0.00-0.03) 10^3/uL Imm/Tot Granulo (auto) 0.2 (0.0-0.5) % Sodium 130 L (136-145) mmol/L Potassium 4.6 (3.5-5.1) mmol/L Chloride 91 L (98-107) mmol/L Carbon Dioxide 30.4 (21.0-32.0) mmol/L Anion Gap 13.2 BUN 23.0 H (7.0-18.0) mg/dL Creatinine 1.08 (0.70-1.30) mg/dL Est GFR ( Amer) >60 (>=60) Est GFR (Non-Af Amer) >60 (>=60) BUN/Creatinine Ratio 21.3 Glucose 153 H (74-106) mg/dL Calcium 9.9 (8.5-10.1) mg/dL Troponin I High Sens 7.4 (4.0-76.1) pg/mL Imaging Data Chest x-ray: Radiologist's impression: ITS Impressions Chest X-Ray 06/19/24 02:01 IMPRESSION: Right lower lobe pneumonia. Recommend follow-up imaging to ensure resolution. Electronically authenticated by: ABBIE FRYE Date: 06/19/2024 02:32 ECG Data Attestation: I personally reviewed and interpreted this ECG as follows: (EKG on my interpretation shows sinus tachycardia with a rate of 122.) Discharge Plan Discharge Chief Complaint: Shortness of Breath/Dyspnea Clinical Impression: Pneumonia Patient Disposition: Admitted As Inpatient Time of Disposition Decision: 03:04 Condition: Fair
[2024-06-19 02:39] LABS: Anion Gap 13.2; BUN Creatinine Ratio 21.3; Calcium 9.9 mg/dL (8.5-10.1); Carbon Dioxide 30.4 mmol/L (21.0-32.0); Chloride 91 mmol/L (98-107); Estimated GFR (African America >60 (>=60); Estimated GFR (Non-African Ame >60 (>=60); Glucose 153 mg/dL (74-106); Potassium 4.6 mmol/L (3.5-5.1); Sodium 130 mmol/L (136-145); Troponin I High Sensitivity 7.4 pg/mL (4.0-76.1)
[2024-06-19] MEDS: CEFTRIAXONE 1,000 MG in 0.9 % SODIUM CHLORIDE 50 ML 100 MG IV (03:03)
[2024-06-19] MEDS: 0.9 % SODIUM CHLORIDE 1,000 ML 125 ML IV ×3 (03:05→23:52)
[2024-06-19] MEDS: AZITHROMYCIN 500 MG in 0.9 % SODIUM CHLORIDE 250 ML 250 MG IV (03:06)
[2024-06-19 03:07] LABS: Lactate/Lactic Acid 1.9 mmol/L (0.4-2.0)
[2024-06-19] MEDS: CLINDAMYCIN PHOSPHATE/D5W 900 MG/50 ML PIGGYBACK 100 MG IV (03:24)
--- OUTSIDE RECORDS SUMMARY | 2024-06-19 03:39 | XMS_ITS | CCD ---
Author Organization [facility] CliniSydc Care Team Providers Care Sample Stitcher Name Role Phone Apollo Lopes Unavailable Unavailable Neo Singh Unavailable Unavailable Arleen Hudson Unavailable Irina Carcamo Unavailable Unavailable Maicol Fisher Unavailable Unavailable Apollo Lopes Unavailable Unavailable Neo Singh Unavailable Unavailable Unavailable Luis Moe Unavailable MD Neo Singh Primary Care Provider MD Apollo Lopes Attending Provider [phone] MD ANDREA HAWTHORNE Attending Unavailab le Neo [facility] Unavailable LAVERTMadison, Dr. APOLLO Bowles Referring Unavailabl e LAVERTMadison, Dr. APOLLO Bowles Attending Unavailabl e [facility] Unavailable WIECEK, DR DONYA [...] Unavailable Neo Singh MD Primary Care Provider [phone] Irina Wesley MD Unavailable [phone] MD Neo Singh Primary Care Provider DO Issa Salas Attending Provider [phone] APOLLO LOPES Attending Unavailable NEO SINGH Primary Care Unavailable NEO SINGH Attending Unavailable NEO SINGH Attending Unavailable NEO SINGH Attending Unavailable CLAIRE LYNCH Attending Unavailable MER CHEN Attending Unavailable MD Deven Landin Other Provider Unavailable MD Tiffany Escobar Attending Provider [phone] Issa Salas Admitting Unavailable Issa Salas Attending Unavailable Neo Singh Primary Care Unavailable Neo Singh Primary Care Unavailable Deven Landin Consulting Unavailable Tiffany Escobar Admitting UnavailTiffany Taylor Attending Unavailronaldo lyman Allergies Allergy Classification Reported Allergen(s) Allergy Type Date of Onset Reaction(s) Facility (4 sources) Latex rubber gloves; Translations: [Latex Gloves] Allergy to drug (finding) MG-Otolaryngol [facility] Work Phone: (5 sources) Latex; Translations: [latex] Allergy to substance 07-13-2015 Unknown [facility] Medications Current Medications Medication Drug Class(es) Dates Sig (Normalized) Sig (Original) [id number] 200 actuat albuterol 0.09 mg/actuat metered dose [...] Fluticasone Fu roate (Flonase Sensimist) 27.5 mcg/actuation [place],Suspension Active 1 SPRAY INTRANASAL Daily May 21, [...] Ordered: 08-Jun-2021 DO Start : 11-Dec-2020 Active Mytld-Mh-9-Dha-Epa-Alia spho-Ast (3 sources) Start: 11-30-2017 End: 06-05-2024 take 3 capsules by mouth once daily Tjpvy-Op-9-Dha-Epa-Ph ospho-Ast Discontinued 1 CAP PO Daily November 30, 2017 1:00am June 05, 2024 1:43pm Start: 11-30-2017 take 3 capsules by mouth once daily Eueeu-Va-5-Phr-Apo-Lfucmyx-Ast Active 1 CAP PO Daily November 30, 2017 1:00am Start: 11-30-2017 take 3 capsules by mouth once daily Ywawi-Wc-4-Kni-Trq-Msuabsa-Ast Active 1 CAP PO Daily November 30, [...] 05-23-2019 take 250 mg by mouth once thyu y Magnesium Active 250 MG PO Daily [...] disease (1 source) Atherosclerotic heart disease of [place] coronary artery without angina pectoris; Translations: [ASHD [place] W/O ANGINA PECTORIS] Onset: 3 Chronic [...] 2 Chronic Other aftercare (1 source) Other roasterman (current) drug therapy; Translations: [OTH [facility] CURRENT DRUG THERAPY] Onset: 3 Episodic Other aftercare (1 source) USP (current) use of aspirin; Translations: [FORMULA CHECKER CURRENT USE OF ASPIRIN] Onset: 3 Episodic [...] Marker, Serum 2.3 ng/mL Normal 0.0-8.4 [facility] Comment on above: Result Comment: [facility] Electrochemiluminescence Immunoassay (ECLIA) Values obtained with different assay methods or kits cannot be used interchangeably. Results cannot be interpreted as absolute evidence of the presence or absence of malignant disease. This test is not interpretable in females. Performed at: [facility] [id number] Cutting Inspector: Ross Ramirez PhD, Phone: [phone] Performed By: #### C BC, CMP, CEA ####[address]#### AFPTM, CA19 ####[facility] , Carbohydrate Antigen 19-9on 06-10-2024 Carbohydrate Antigen 19-9 71 High 0-35 [facility] Comment on above: Result Comment: [employer] Electrochemiluminescence Immunoassay (ECLIA) Values obtained with different assay methods or kits cannot be used interchangeably. Results cannot be interpreted as absolute evidence of the presence or absence of malignant disease. Performed at: [facility] [id number] Cutting Inspector: Ross Ramirez PhD, Phone: [phone] PERFORMED BY: [place] [address] PATHOLOGIST SPOT WELDER PABLO ZHAO M.D. Performed By: #### C BC, CMP, CEA ####[address]#### AFPTM, CA19 ####[facility] , Complete Blood Count Auto Di ffon 06-10-2024 Basophils (Bld) [#/Vol] 0.0 10*3/uL Normal 0.0-0.2 [facility] Comment on above: Result Comment: PERF ORMED BY: [facility] [place] [address] PATHOLOGIST SPOT WELDER PABLO ZHAO M.D. Performed By: #### C BC, CMP, CEA ####[address]#### AFPTM, CA19 ####[facility] , Basophils/100 WBC (Bld) 0.3 % Normal . T elida [facility] Comment on above: Performed By: #### C BC, CMP, CEA ####[address]#### AFPTM, CA19 ####[facility] , Eosinophils (Bld) [#/Vol] 0.1 10*3/uL Normal 0.0-0.45 [facility] Comment on above: Performed By: #### C BC, CMP, CEA ####[address]#### AFPTM, CA19 ####[facility] , Eosinophils/100 WBC (Bld) 2.2 % Normal . [facility] Comment on above: Performed By: #### C BC, CMP, CEA ####[place] [address] [place]#### AFPTM, CA19 ####[facility] , Erythrocyte distribution width (RBC) [Ratio] 16.5 % High 12.0-14.8 [facility] Comment on above: Performed By: #### C BC, CMP, CEA ####[address] [place] [address] [place]#### AFPTM, CA19 ####[facility] , Hematocrit (Bld) [Volume fraction] 29.5 % Low 38.8-50.0 [facility] Comment on above: Performed By: #### C BC, CMP, CEA ####[address]#### AFPTM, CA19 ####[facility] , Hemoglobin (Bld) [Mass/Vol] 9.5 g/dL Low 13.0-17.0 [facility] Comment on above: Performed By: #### C BC, CMP, CEA ####[address]#### AFPTM, CA19 ####[facility] , Lymphocytes (Bld) [#/Vol] 0.8 10*3/uL Low 1.00-4.8 [facility] Comment on above: Performed By: #### C BC, CMP, CEA ####[address]#### AFPTM, CA19 ####[facility] , Lymphocytes/100 WBC (Bld) 14.7 % Normal . [facility] Comment on above: Performed By: #### C BC, CMP, CEA ####[address]#### AFPTM, CA19 ####[facility] , MCH (RBC) [Entitic mass] 28.4 pg Normal 27.5-35.2 [facility] Comment on above: Performed By: #### C BC, CMP, CEA ####[address]#### AFPTM, CA19 ####[facility] , MCV (RBC) [Entitic vol] 88.3 fL Normal 83.5-101 [facility] Comment on above: Performed By: #### C BC, CMP, CEA ####[place] [address] [place]#### AFPTM, CA19 ####[facility] , Mean Corpuscular HGB Conc 32.2 g/dL Low 32.5-35.6 [facility] Comment on above: Performed By: #### C BC, CMP, CEA ####[place] [address] [place]#### AFPTM, CA19 ####[facility] , Monocytes (Bld) [#/Vol] 0.4 10*3/uL Normal 0.0-0.8 [facility] Comment on above: Performed By: #### C BC, CMP, CEA ####[place] [address] [place]#### AFPTM, CA19 ####[facility] , Monocytes/100 WBC (Bld) 7.4 % Normal . T elida [facility] Comment on above: Performed By: #### C BC, CMP, CEA ####[place] [address] [place]#### AFPTM, CA19 ####[facility] , Neutrophils (Bld) [#/Vol] 4.1 10*3/uL Normal 1.8-7.7 [facility] Comment on above: Performed By: #### C BC, CMP, CEA ####[place] [address] [place]#### AFPTM, CA19 ####[facility] , Neutrophils/100 WBC (Bld) 75.4 % Normal . [facility] Comment on above: Performed By: #### C BC, CMP, CEA ####[place] [address] [place]#### AFPTM, CA19 ####[facility] , NRBC% 0.1 /100{WBC} Normal 0-0.5 [facility] Comment on above: Performed By: #### C BC, CMP, CEA ####[place] [address] [place]#### AFPTM, CA19 ####[facility] , Platelet mean volume (Bld) [Entitic vol] 7.6 fL Normal 6.6-10.1 [facility] Comment on above: Performed By: #### C BC, CMP, CEA ####[place] [address] [place]#### AFPTM, CA19 ####[facility] , Platelets (Bld) [#/Vol] 313 10*3/uL Normal 150-450 [facility] Comment on above: Performed By: #### C BC, CMP, CEA ####[place] [address] [place]#### AFPTM, CA19 ####[facility] , RBC (Bld) [#/Vol] 3.35 10*6/uL Low 3.90-5.60 [facility] Comment on above: Performed By: #### C BC, CMP, CEA ####[address]#### AFPTM, CA19 ####[facility] , WBC (Bld) [#/Vol] 5.5 10*3/uL Normal 4.1-10.5 [facility] Comment on above: Performed By: #### C BC, CMP, CEA ####[place] [address] [place]#### AFPTM, CA19 ####[facility] , Comprehensive Metabolic Pane reid 06-10-2024 Albumin [Mass/Vol] 3.5 g/dL Normal 3.5-5.7 [facility] Comment on above: Performed By: #### C BC, CMP, CEA ####[place] [address] [place]#### AFPTM, CA19 ####[facility] , Albumin/Globulin [Mass ratio] 0.9 {ratio} Normal [facility] Comment on above: Performed By: #### C BC, CMP, CEA ####[place] [address] [place]#### AFPTM, CA19 ####[facility] , ALP [Catalytic activity/Vol] 431 U/L High 34-104 [facility] Comment on above: Performed By: #### C BC, CMP, CEA ####[place] [address] [place]#### AFPTM, CA19 ####[facility] , ALT [Catalytic activity/Vol] 63 U/L High 7-52 [facility] Comment on above: Performed By: #### C BC, CMP, CEA ####[place] [address] [place]#### AFPTM, CA19 ####[facility] , Anion gap [Moles/Vol] 13.3 mmol/L Normal 6.0-15.0 [facility] Comment on above: Performed By: #### C BC, CMP, CEA ####[place] [address] [place]#### AFPTM, CA19 ####[facility] , AST [Catalytic activity/Vol] 68 U/L High 13-39 [facility] Comment on above: Performed By: #### C BC, CMP, CEA ####[place] [address] [place]#### AFPTM, CA19 ####[facility] , Bilirubin [Mass/Vol] 0.3 mg/dL Normal 0.3-1.0 [facility] Comment on above: Performed By: #### C BC, CMP, CEA ####[place] [address] [place]#### AFPTM, CA19 ####[facility] , Calcium [Mass/Vol] 9.2 mg/dL Normal 8.6-10.3 [facility] Comment on above: Performed By: #### C BC, CMP, CEA ####[place] [address] [place]#### AFPTM, CA19 ####[facility] , Chloride [Moles/Vol] 96 mmol/L Low 98-107 [facility] Comment on above: Performed By: #### C BC, CMP, CEA ####[address]#### AFPTM, CA19 ####[facility] , CO2 [Moles/Vol] 33.8 mmol/L High 21.0-31.0 [facility] Comment on above: Performed By: #### C BC, CMP, CEA ####[place] [address] [place]#### AFPTM, CA19 ####[facility] , Creatinine [Mass/Vol] 0.97 mg/dL Normal 0.70-1.30 [facility] Comment on above: Performed By: #### C BC, CMP, CEA ####[place] [address] [place]#### AFPTM, CA19 ####[facility] , Creatinine Clr Calc Pharmacy 53.88 Normal [facility] Comment on above: Result Comment: PERF ORMED BY: [facility] [address] [place] [address] PATHOLOGIST SPOT WELDER PABLO ZHAO M.D. Performed By: #### C BC, CMP, CEA ####[place] [address] [place]#### AFPTM, CA19 ####[facility] , GFR/1.73 sq M.predicted MDRD (S/P/Bld) [Vol rate/Area] mL/min/{1.73_m2} Normal [facility] Comment on above: Performed By: #### C BC, CMP, CEA ####[place] [address] [place]#### AFPTM, CA19 ####[facility] , Globulin (S) [Mass/Vol] 3.8 g/dL Normal T he [facility] Comment on above: Performed By: #### C BC, CMP, CEA ####[place] [address] [place]#### AFPTM, CA19 ####[facility] , Glucose [Mass/Vol] 125 mg/dL High 70-100 [facility] Comment on above: Result Comment: [place] Glucose Reference Range is dependent on time and content of last meal. Glucose of more than 200 mg/dL in a nonstressed, ambulatory subject supports the diagnosis of Diabetes Mellitus. ADA recommended reference range Performed By: #### C BC, CMP, CEA ####[place] [address] [place]#### AFPTM, CA19 ####[facility] , Potassium [Moles/Vol] 4.1 mmol/L Normal 3.5-5.1 [facility] Comment on above: Performed By: #### C BC, CMP, CEA ####[place] [address] [place]#### AFPTM, CA19 ####[facility] , Protein [Mass/Vol] 7.3 g/dL Normal 6.4-8.9 [facility] Comment on above: Performed By: #### C BC, CMP, CEA ####[place] [address] [place]#### AFPTM, CA19 ####[facility] , Sodium [Moles/Vol] 139 mmol/L Normal 136-145 [facility] Comment on above: Performed By: #### C BC, CMP, CEA ####[facility]#### AFPTM, CA19 ####[facility] , Urea nitrogen [Mass/Vol] 20 mg/dL Normal 7-25 [facility] Comment on above: Performed By: #### C BC, CMP, CEA ####[facility] [place] [id number] [facility]#### AFPTM, CA19 ####[facility] , Glucose Poct Glucometerson 0 06-10-2024 Glucose [Mass/Vol] 132 mg/dL Normal [facility] Comment on above: Result Comment: [place] Glucose Reference Range is dependent on time and content of last meal. Glucose of more than 200 mg/dL in a nonstressed, ambulatory subject supports the diagnosis of Diabetes Mellitus. PERFORMED BY: [place] [address] PATHOLOGIST SPOT WELDER PABLO ZHAO M.D. Performed By: #### G LULS ####Point of Care testing, PET tumor init tx strat sb-m [facility] 06-10-2024 PET tumor init tx strat sb-mt [facility] [place] [address] Nuclear Medicine Report Signed Patient: Roxann Rm MR#: [id number] : 1950 Acct:[id number] Age/Sex: 74 / M ADM Date: 06/10/24 Loc: Room: Type: [facility] RCR Attending Dr: Tiffany Escobar MD Copies [...] Claire Beaver M.D.06/10/2024 4:33 PM Dictation Location: [facility]- Transcribed By: [facility] 06/10/24 1633 Dictated By: Claire Beaver MD 06/10/24 1600 Signed By: 06/10/24 1633 Normal [facility] SURGICAL PATHOLOGY REFERENCE LAB CONSULTon 06-10-2024 CASE REPORT Normal [facility] Comment on above: Order Comment: Speci men Type: FORMALIN-FIXED PARAFFIN-EMBEDDED TISSUE SPECIMEN Ordering Facility: [facility] Address: [address] [place], [place] [phone] Result Comment: Surg ica Pathology Report Case: [id number] Authorizing Provider: Kulwinder Thakkar MD Collected: 06/10/2024 10:06 AM Ordering Location: [facility] Received: 06/10/2024 10:02 AM [facility] Pathologist: Jennifer Zapata MD Specimen: Slide(s), 10 SLIDES([id number]) Performed By: #### L [id number] #### [facility] CLIA [id number] [address] [place] [address] STATES OF [facility] CLINICAL HISTORY CONSULT REQUESTED Normal C [facility]On [facility] Comment on above: Order Comment: Speci men Type: FORMALIN-FIXED PARAFFIN-EMBEDDED TISSUE SPECIMEN Ordering Facility: [facility] Address: [address] [place] [phone] Performed By: #### L [id number] #### [facility] CLIA [id number] [address] [place] [address] STATES [place] DIAGNOSIS COMMENT Normal [facility] Comment on above: Order Comment: Speci men Type: FORMALIN-FIXED PARAFFIN-EMBEDDED TISSUE SPECIMEN Ordering Facility: [facility] Address: [address] [place] [phone] Result Comment: Adolfo k you for allowing [...] to contact the GI consultation service at [phone] with questions or if additional follow up information becomes available. This case was reviewed in conjunction with the GI pathology fellow, Meena Ojeda MD. Performed By: #### L [id number] #### [facility] CLIA [id number] [address] [place] [address] [place] FINAL DIAGNOSIS Normal [facility] Comment on above: Order Comment: Speci men Type: FORMALIN-FIXED PARAFFIN-EMBEDDED TISSUE SPECIMEN Ordering Facility: [facility] Address: [address] [place], [place] [address] Result Comment: 1. S tomach, antrum, biopsy [...] comment. RS/AURORA 06/11/2024 Performed By: #### L [id number] #### [facility] CLIA [id number] [address] [place] [address] [place] FINAL PERFORMING LAB Normal [facility] Comment on above: Order Comment: Speci men Type: FORMALIN-FIXED PARAFFIN-EMBEDDED TISSUE SPECIMEN Ordering Facility: [facility] Address: [address] [place], [place] [phone] Result Comment: Diag nostic interpretation performed at [facility], [address] [place] [address] CLIA# [id number] Blind Stitch Machine Operator: Sav Crowley M.D. Performed By: #### L [id number] #### [facility] CLIA [id number] [address] [place] [address] [place] Reid 05-10-2024 L Specimen: [id number] Received: 05/10/24 Status: MOSHE Escobar Num: [id number] Spec Type: Surgical Subm Dr: Issa Salas DO Tissues: A Stomach - Biopsy/Polyp (ANTRUM) B Esophagus Biopsy (DISTAL ESOPH) C Esophagus Biopsy (MID ESOPH) D Colon Biopsy (HEPATIC FLEXURE) Procedures: PAS - LGRN, HE/8, Gross/Micro L4/4, H PYLORI, IHC First AB Age/ Patient Sex Location Account Attending Physician MailealfredoRoxann 74/M LABELL [id number] Issa Salas DO SPEC NUM: [id number] RECD: 05/10/24 STATUS: MARIBELLLuan ESCOBAR NUM: [id number] NINA: 05/10/24 [facility] DR: Issa Salas DO ENTERED: 05/10/[address] [facility] DR: Blake Crouch SPEC TYPE: Surgical DEPT: [...] at least intramucosal carcinoma, see comment Specimen: [id number] Received: 05/10/24 Status: MARIBELLLuan Escobar Num: [id number] Spec Type: Surgical Subm Dr: Issa Salas DO Tissues: A Stomach - Biopsy/Polyp (ANTRUM) B Esophagus Biopsy (DISTAL ESOPH) C Esophagus Biopsy (MID ESOPH) D Colon Biopsy (HEPATIC FLEXURE) Procedures: PAS - LGRN, HE/8, Gross/Micro L4/4, H PYLORI, IHC First AB Patient: SujeyRoxann [id number] (Continued) Specimen: [id number] Received: 05/10/24 (Continued) Supplemental Report (Continued) Signed (signature on file) Hilda Thakkar MD 05/14/24 1657 Specimen: [id number] Received: 05/10/24 Status: MOSHE Escobar Num: [id number] Spec Type: Surgical Subm Dr: Issa Salas DO Tissues: A Stomach - Biopsy/Polyp (ANTRUM) B Esophagus Biopsy (DISTAL ESOPH) C Esophagus Biopsy (MID ESOPH) D Colon Biopsy (HEPATIC FLEXURE) Procedures: PAS - LGRN, HE/8, Gross/Micro L4/4, H PYLORI, IHC First AB Patient: Roxann Rm [id number] (Continued) Specimen: [id number] Received: 05/10/24-1305 (Continued) Supplemental Report (Continued) Addendum [...] 0.1 cm, entirely submitted in A1. Specimen: [id number] Received: 05/10/24 Status: MOSHE Nietoelvia Num: [id number] Spec Type: Surgical Subm Dr: Issa Salas, Tissues: A Stomach - Biopsy/Polyp (ANTRUM) B Esophagus Biopsy (DISTAL ESOPH) C Esophagus Biopsy (MID ESOPH) D Colon (more content not included)... Normal [facility] Automated basophil %Ordered By: Tiffany Escobar on 12-18-2023 Basophils/100 WBC (Bld) 0.4 % Normal . [facility] Comment on above: Performed By: #### C BC ####[place] [address] [address] Automated basophil countOrde red By: Tiffany Escobar on 12-18-2023 Basophils (Bld) [#/Vol] 0.0 10*3/uL Normal 0.0-0.2 [facility] Comment on above: Result Comment: PERF ORMED BY: [facility] [address] [place] [id number] PATHOLOGIST SPOT WELDER PABLO ZHAO M.D. Performed By: #### C BC ####[place] [address] [address] Automated blood monocyte cou ntOrdered By: lubna Ha-Kymari on 12-18-2023 Monocytes (Bld) [#/Vol] 0.5 10*3/uL Normal 0.0-0.8 [facility] Comment on above: Performed By: #### C BC ####[address] Automated eosinophil %Ordere d By: [facility] Adrian-Kymari on 12-18-2023 Eosinophils/100 WBC (Bld) 9.0 % Normal . [facility] Comment on above: Performed By: #### C BC ####[address] Automated eosinophil countOr dered By: [facility] Jose Juanari on 12-18-2023 Eosinophils (Bld) [#/Vol] 0.5 10*3/uL High 0.0-0.45 [facility] Comment on above: Performed By: #### C BC ####[address] Automated monocyte %Ordered By: [facility]ick[facility] on 12-18-2023 Monocytes/100 WBC (Bld) 8.2 % Normal . [facility] Comment on above: Performed By: #### C BC ####[address] Automated neutrophil %Ordere d By: [facility] Center[facility]erick[facility] on 12-18-2023 Neutrophils/100 WBC (Bld) 60.7 % Normal . [facility] Comment on above: Performed By: #### C BC ####[place] [id number] [facility] Complete Blood Count Auto Di ffon 12-18-2023 Mean Corpuscular HGB Conc 33.2 g/dL Normal 32.5-35.6 [facility] Comment on above: Performed By: #### C BC ####[place] [id number] [facility] NRBC% 0.0 /100{WBC} Normal 0-0.5 [facility] Comment on above: Performed By: #### C BC ####[place] [id number] [facility] Erythrocyte distribution wid th [Ratio] by Automated countOrdered By: lubna Maloney on 12-18-2023 Erythrocyte distribution width (RBC) [Ratio] 15.8 % High 12.0-14.8 [facility] Comment on above: Performed By: #### C BC ####[address] Erythrocytes [#/volume] in B lood by Automated countOrdered By: lubna Escobar on 12-18-2023 RBC (Bld) [#/Vol] 3.61 10*6/uL Low 3.90-5.60 [facility] Comment on above: Performed By: #### C BC ####[address] Hematocrit [Volume Fraction] of Blood by Automated countOrdered By: lubna Maloney on 12-18-2023 Hematocrit (Bld) [Volume fraction] 35.1 % Low 38.8-50.0 [facility] Comment on above: Performed By: #### C BC ####[address] Hemoglobin [Mass/volume] in BloodOrdered By: lubna Escobar on 12-18-2023 Hemoglobin (Bld) [Mass/Vol] 11.6 g/dL Low 13.0-17.0 [facility] Comment on above: Performed By: #### C BC ####[address] Leukocytes [#/volume] correc emilio for nucleated erythrocytes in Blood by Automated counOrdered By: lubna Escobar on 12-18-2023 WBC corrected for nucl RBC Auto (Bld) [#/Vol] 5.8 10*3/uL 4.1-10.5 [facility] Leukocytes [#/volume] in Blo od by Automated countOrdered By: lubna Escobar on 12-18-2023 WBC (Bld) [#/Vol] 5.8 10*3/uL Normal 4.1-10.5 [facility] Comment on above: Performed By: #### C BC ####[address] Lymphocytes [#/volume] in Bl ood by Automated countOrdered By: lubna Escobar on 12-18-2023 Lymphocytes (Bld) [#/Vol] 1.3 10*3/uL Normal 1.00-4.8 [facility] Comment on above: Performed By: #### C BC ####[address] Lymphocytes/100 leukocytes i n Blood by Automated countOrdered By: lubna Escobar on 12-18-2023 Lymphocytes/100 WBC (Bld) 21.7 % Normal . [facility] Comment on above: Performed By: #### C BC ####[address] MCH [Entitic mass] by Automa emilio countOrdered By: lubna Escobar on 12-18-2023 MCH (RBC) [Entitic mass] 32.2 pg Normal 27.5-35.2 [facility] Comment on above: Performed By: #### C BC ####[address] MCHC Auto (RBC) [Mass/Vol]Or dered By: Tiffany Escobar on 12-18-2023 MCHC (RBC) [Mass/Vol] 33.2 g/dL 32.5-35.6 [facility] MCV [Entitic volume] by Auto mated countOrdered By: lubna Escobar on 12-18-2023 MCV (RBC) [Entitic vol] 97.0 fL Normal 83.5-[address] [facility] Comment on above: Performed By: #### C BC ####[address] Neutrophils [#/volume] in Bl ood by Automated countOrdered By: lubna Escobar on 12-18-2023 Neutrophils (Bld) [#/Vol] 3.5 10*3/uL Normal 1.8-7.7 [facility] Comment on above: Performed By: #### C BC ####[address] Nucleated erythrocytes [Pres ence] in Blood by Automated countOrdered By: [facility] Luz on 12-18-2023 Nucleated RBC Auto Ql (Bld) 0.0 /100{WBC} 0-0.5 [facility] Platelet mean volume [Entiti c volume] in Blood by Automated countOrdered By: lubna IlWill on 12-18-2023 Platelet mean volume (Bld) [Entitic vol] 7.0 fL Normal 6.6-10.1 [facility] Comment on above: Performed By: #### C BC ####[place] [id number] [facility] Platelets [#/volume] in Bloo d by Automated countOrdered By: [facility] CenterWill on 12-18-2023 Platelets (Bld) [#/Vol] 196 10*3/uL Normal 150-450 [facility] Comment on above: Performed By: #### C BC ####[address] Acanthocytes [Presence] in B lood by Light microscopyOrdered By: lubna Escobar on 09-21-2023 Acanthocytes LM Ql (Bld) Slight [facility] Anisocytosis [Presence] in B lood by Light microscopyOrdered By: [facility] on 09-[facility]-2023 Anisocytosis Ql (Bld) Slight Normal [facility] Comment on above: Performed By: #### D IFF CBC ####[place] [id number] [facility] Diff and CBCon 09-21-2023 Acanthocytes Slight Normal [facility] Comment on above: Performed By: #### D IFF CBC ####[place] [address] [place] Erythrocyte distribution width (RBC) [Ratio] 19.3 % High 12.0-14.8 [facility] Comment on above: Performed By: #### D IFF CBC ####[address] Hematocrit (Bld) [Volume fraction] 34.2 % Low 38.8-50.0 [facility] Comment on above: Performed By: #### D IFF CBC ####[address] Hemoglobin (Bld) [Mass/Vol] 11.1 g/dL Low 13.0-17.0 [facility] Comment on above: Performed By: #### D IFF CBC ####[address] MCH (RBC) [Entitic mass] 30.5 pg Normal 27.5-35.2 [facility] Comment on above: Performed By: #### D IFF CBC ####[address] MCV (RBC) [Entitic vol] 93.9 fL Normal 83.5-101 T [facility] Comment on above: Performed By: #### D IFF CBC ####[address] Mean Corpuscular HGB Conc 32.5 g/dL Normal 32.5-35.6 [facility] Comment on above: Performed By: #### D IFF CBC ####[address] Microcytosis Slight Normal [facility] Comment on above: Performed By: #### D IFF CBC ####[address] Ovalocytes Slight Normal [facility] Comment on above: Performed By: #### D IFF CBC ####[address] Platelet Estimate Decreased Normal Normal [facility] Comment on above: Performed By: #### D IFF CBC ####[address] [facility] Platelet mean volume (Bld) [Entitic vol] 6.9 fL Normal 6.6-10.1 [facility] Comment on above: Performed By: #### D IFF CBC ####[place] [id number] [facility] Platelet Morphology Normal Normal Normal [facility] Comment on above: Result Comment: PERF ORMED BY: [facility] [address] [place] [address] PATHOLOGIST SPOT WELDER PABLO ZHAO M.D. Performed By: #### D IFF CBC ####[place] [id number] [facility] Platelets (Bld) [#/Vol] 134 10*3/uL Low 150-450 [facility] Comment on above: Performed By: #### D IFF CBC ####[place] [id number] [facility] Poikilocytosis Slight Normal [facility] Comment on above: Performed By: #### D IFF CBC ####[place] [id number] [facility] Polychromasia Slight Normal [facility] Comment on above: Performed By: #### D IFF CBC ####[place] [id number] [facility] RBC (Bld) [#/Vol] 3.65 10*6/uL Low 3.90-5.60 [facility] Comment on above: Performed By: #### D IFF CBC ####[place] [id number] [facility] Schistocytes Slight Normal [facility] Comment on above: Performed By: #### D IFF CBC ####[place] [id number] [facility] WBC (Bld) [#/Vol] 3.5 10*3/uL Low 4.1-10.5 [facility] Comment on above: Performed By: #### D IFF CBC ####[facility] [id number] [place] [address] [facility] Eosinophils/100 leukocytes i n Blood by Manual countOrdered By: Tiffany Escobar on 09-21-2023 Eosinophils/100 WBC (Bld) 6 % High 1-3 [facility] Comment on above: Performed By: #### D IFF CBC ####[facility] [id number] [place] [address] [facility] Lymphocytes/100 leukocytes i n Blood by Manual countOrdered By: Tiffany Ha-Haider on 09-21-2023 Lymphocytes/100 WBC (Bld) 31 % Normal 18-42 [facility] Comment on above: Performed By: #### D IFF CBC ####[facility] [id number] [place] [address] [facility] Manual blood segmented neutr ophils/100 leukocytesOrdered By: Tiffany Escobar on 09-21-2023 Segmented neutrophils/100 WBC (Bld) 58 % Normal 50-70 [facility] Comment on above: Performed By: #### D IFF CBC ####[address] [facility] Microcytes LM Ql (Bld)Ordere d By: Tiffany Escobar on 09-21-2023 Microcytes Ql (Bld) Slight [facility] Monocytes/100 leukocytes in Blood by Manual countOrdered By: Tiffany Escobar on 09-21-2023 Monocytes/100 WBC (Bld) 6 % Normal 2-[address] [facility] Comment on above: Performed By: #### D IFF CBC ####[facility] [id number] [place] [address] [facility] Ovalocyte detectionOrdered B y: Tiffany Escobar on 09-21-2023 Ovalocytes LM Ql (Bld) Slight [facility] Platelet adequacy [Presence] in Blood by Light microscopyOrdered By: Tiffany Maloney on 09-21-2023 Platelets LM Ql (Bld) Decreased Normal [facility] Platelet morphology finding [Identifier] in BloodOrdered By: Tiffany Escobar on 09-21-2023 Platelet morphology finding Nom (Bld) Normal Normal [facility] Poikilocytosis [Presence] in Blood by Light microscopyOrdered By: Tiffany Escobar on 09-21-2023 Poikilocytosis LM Ql (Bld) Slight [facility] Polychromasia [Presence] in Blood by Light microscopyOrdered By: Tiffany Escobar on 09-21-2023 Polychromasia LM Ql (Bld) Slight [facility] RBC morphologyOrdered By: Wanda Escobar on 09-21-2023 RBC morphology finding Nom (Bld) N/A [facility] Schistocytes [Presence] in B lood by Light microscopyOrdered By: Tiffany Escobar on 09-21-2023 Schistocytes LM Ql (Bld) [facility] Absolute reticulocyte countO rdered By: Tiffany Escobar on 06-21-2023 Reticulocytes (Bld) [#/Vol] 0.065 10*6/uL 0.024-0.08 4 [facility] Alanine aminotransferase [En zymatic activity/volume] in Serum or PlasmaOrdered By: Tiffany Escobar on 06-21-2023 ALT [Catalytic activity/Vol] 9 U/L Normal 7-52 [facility] Comment on above: Performed By: #### C MP, LDH, FE and TIBC, [id number], CBC, RETIC, HAPT #### [facility] [address] [place] [address] #### CU #### [facility] , Albumin [Mass/volume] in Ser um or Plasma by Bromocresol green (BCG) dye binding methoOrdered By: Tiffany Escobar on 06-21-2023 Albumin BCG dye [Mass/Vol] 4.1 g/dL 3.5-5.7 [facility] Alkaline phosphatase [Enzyma tic activity/volume] in Serum or PlasmaOrdered By: Tiffany Escobar on 06-21-2023 ALP [Catalytic activity/Vol] 69 U/L Normal 34-104 [facility] Comment on above: Performed By: #### C MP, LDH, FE and TIBC, [id number], CBC, RETIC, HAPT #### [facility] [address] [place] [address] [place] #### CU #### [facility] , Aspartate aminotransferase [ Enzymatic activity/volume] in Serum or PlasmaOrdered By: Tiffany Escobar on 06-21-2023 AST [Catalytic activity/Vol] 14 U/L Normal 13-39 [facility] Comment on above: Performed By: #### C MP, LDH, FE and TIBC, [id number], CBC, RETIC, HAPT #### [facility] [address] [place] [address] [place] #### CU #### [facility] , Basophil percentageOrdered B y: Tiffany Escobar on 06-21-2023 Basophil percentage 128 ug/dL 69-132 [facility] Comment on above: This test was develo ped and its performance characteristicsdetermined by [employer]. It has not been cleared orapproved by the Food and Drug Administration. Detection Limit = 5Performed at: [facility] [address] [id number] Director: Haja Schmitt MD, Phone: [phone] Bilirubin Test strip Ql (U)O rdered By: Tiffany Escobar on 06-21-2023 Bilirubin Ql (U) Negative Negative [facility] Bilirubin.total [Mass/volume ] in Serum or PlasmaOrdered By: Tiffany Escobar on 06-21-2023 Bilirubin [Mass/Vol] 0.5 mg/dL Normal 0.3-1.0 [facility] Comment on above: Performed By: #### C MP, LDH, FE and TIBC, [id number], CBC, RETIC, HAPT #### [facility] [address] [place] [address] [place] #### CU #### [facility] , Calcium [Mass/volume] in Ser um or PlasmaOrdered By: Tiffany Escobar on 06-21-2023 Calcium [Mass/Vol] 9.5 mg/dL Normal 8.6-10.3 [facility] Comment on above: Performed By: #### C MP, LDH, FE and TIBC, [id number], CBC, RETIC, HAPT #### [address] #### CU #### [facility] , Carbon dioxide, total [Moles /volume] in Serum or PlasmaOrdered By: Tiffany Maloney on 06-21-2023 CO2 [Moles/Vol] 32.6 mmol/L High 21.0-31.0 [facility] Comment on above: Performed By: #### C MP, LDH, FE and TIBC, [id number], CBC, RETIC, HAPT #### [address] #### CU #### [facility] , Chloride [Moles/volume] in S vic or PlasmaOrdered By: lubna Escobar on 06-21-2023 Chloride [Moles/Vol] 100 mmol/L Normal 98-107 [facility] Comment on above: Performed By: #### C MP, LDH, FE and TIBC, [id number], CBC, RETIC, HAPT #### [address] #### CU #### [facility] , Color of Urine by AutoOrdere d By: lubna Escobar on 06-21-2023 Color (U) Yellow Normal Yellow [facility] Comment on above: Order Comment: Name Collection Type:: Voided Performed By: #### U A ####[address] Complete Blood Count Auto Di ffon 06-21-2023 Basophils (Bld) [#/Vol] 0.0 10*3/uL Normal 0.0-0.2 [facility] Comment on above: Performed By: #### C MP, LDH, FE and TIBC, [id number], CBC, RETIC, HAPT #### [address] #### CU #### [facility] , Basophils/100 WBC (Bld) 1.0 % Normal . [place] [facility] Comment on above: Performed By: #### C MP, LDH, FE and TIBC, [id number], CBC, RETIC, HAPT #### [place] [address] [place] #### CU #### [facility] , Eosinophils (Bld) [#/Vol] 0.3 10*3/uL Normal 0.0-0.45 [facility] Comment on above: Performed By: #### C MP, LDH, FE and TIBC, [id number], CBC, RETIC, HAPT #### [place] [address] [place] #### CU #### [facility] , Eosinophils/100 WBC (Bld) 7.9 % Normal . [facility] Comment on above: Performed By: #### C MP, LDH, FE and TIBC, [id number], CBC, RETIC, HAPT #### [address] #### CU #### [facility] , Erythrocyte distribution width (RBC) [Ratio] 19.1 % High 12.0-14.8 [facility] Comment on above: Performed By: #### C MP, LDH, FE and TIBC, [id number], CBC, RETIC, HAPT #### [place] [address] [place] #### CU #### [facility] , Hematocrit (Bld) [Volume fraction] 31.5 % Low 38.8-50.0 [facility] Comment on above: Performed By: #### C MP, LDH, FE and TIBC, [id number], CBC, RETIC, HAPT #### [place] [address] [place] #### CU #### [facility] , Hemoglobin (Bld) [Mass/Vol] 9.7 g/dL Low 13.0-17.0 [facility] Comment on above: Performed By: #### C MP, LDH, FE and TIBC, [id number], CBC, RETIC, HAPT #### [place] [address] [place] #### CU #### [facility] , Lymphocytes (Bld) [#/Vol] 1.0 10*3/uL Normal 1.00-4.8 [facility] Comment on above: Performed By: #### C MP, LDH, FE and TIBC, [id number], CBC, RETIC, HAPT #### [place] [address] [place] #### CU #### [facility] , Lymphocytes/100 WBC (Bld) 26.4 % Normal . [facility] Comment on above: Performed By: #### C MP, LDH, FE and TIBC, [id number], CBC, RETIC, HAPT #### [place] [address] [place] #### CU #### [facility] , MCH (RBC) [Entitic mass] 23.9 pg Low 27.5-35.2 [facility] Comment on above: Performed By: #### C MP, LDH, FE and TIBC, [id number], CBC, RETIC, HAPT #### [place] [address] [place] #### CU #### [facility] , MCV (RBC) [Entitic vol] 78.1 fL Low 83.5-101 [facility] Comment on above: Performed By: #### C MP, LDH, FE and TIBC, [id number], CBC, RETIC, HAPT #### [address] [address] [place] #### CU #### [facility] , Mean Corpuscular HGB Conc 30.6 g/dL Low 32.5-35.6 [facility] Comment on above: Performed By: #### C MP, LDH, FE and TIBC, [id number], CBC, RETIC, HAPT #### [place] [address] [place] #### CU #### [facility] , Monocytes (Bld) [#/Vol] 0.5 10*3/uL Normal 0.0-0.8 [facility] Comment on above: Performed By: #### C MP, LDH, FE and TIBC, [id number], CBC, RETIC, HAPT #### [address] #### CU #### [facility] , Monocytes/100 WBC (Bld) 12.1 % Normal . T he [facility] Comment on above: Performed By: #### C MP, LDH, FE and TIBC, [id number], CBC, RETIC, HAPT #### [place] [address] [place] #### CU #### [facility] , Neutrophils (Bld) [#/Vol] 2.0 10*3/uL Normal 1.8-7.7 [facility] Comment on above: Performed By: #### C MP, LDH, FE and TIBC, [id number], CBC, RETIC, HAPT #### [place] [address] [place] #### CU #### [facility] , Neutrophils/100 WBC (Bld) 52.6 % Normal . [facility] Comment on above: Performed By: #### C MP, LDH, FE and TIBC, [id number], CBC, RETIC, HAPT #### [place] [address] [place] #### CU #### [facility] , NRBC% 0.4 /100{WBC} Normal 0-0.5 [facility] Comment on above: Performed By: #### C MP, LDH, FE and TIBC, [id number], CBC, RETIC, HAPT #### [address] #### CU #### [facility] , Platelet mean volume (Bld) [Entitic vol] 7.1 fL Normal 6.6-10.1 [facility] Comment on above: Performed By: #### C MP, LDH, FE and TIBC, [id number], CBC, RETIC, HAPT #### [place] [address] [place] #### CU #### [facility] , Platelets (Bld) [#/Vol] 191 10*3/uL Normal 150-450 [facility] Comment on above: Performed By: #### C MP, LDH, FE and TIBC, [id number], CBC, RETIC, HAPT #### [place] [address] [place] #### CU #### [facility] , RBC (Bld) [#/Vol] 4.04 10*6/uL Normal 3.90-5.60 [facility] Comment on above: Performed By: #### C MP, LDH, FE and TIBC, [id number], CBC, RETIC, HAPT #### [place] [address] [place] #### CU #### [facility] , WBC (Bld) [#/Vol] 3.8 10*3/uL Low 4.1-10.5 [facility] Comment on above: Performed By: #### C MP, LDH, FE and TIBC, [id number], CBC, RETIC, HAPT #### [place] [address] [place] #### CU #### [facility] , Comprehensive Metabolic Pane reid 06-21-2023 Albumin [Mass/Vol] 4.1 g/dL Normal 3.5-5.7 [facility] Comment on above: Performed By: #### C MP, LDH, FE and TIBC, [id number], CBC, RETIC, HAPT #### [place] [address] [place] #### CU #### [facility] , Creatinine Clr Calc Pharmacy 59.93 Normal [facility] Comment on above: Performed By: #### C MP, LDH, FE and TIBC, [id number], CBC, RETIC, HAPT #### [address] #### CU #### [facility] , GFR/1.73 sq M.predicted MDRD (S/P/Bld) [Vol rate/Area] mL/min/{1.73_m2} Normal [facility] Comment on above: Performed By: #### C MP, LDH, FE and TIBC, [id number], CBC, RETIC, HAPT #### [place] [address] [place] #### CU #### [facility] , Copperon 06-21-2023 Copper 128 ug/dL Normal 69-132 [facility] Comment on above: Result Comment: This test was developed and its performance characteristics determined by [employer]. It has not been cleared or approved by the Food and Drug Administration. Detection Limit = 5 Performed at: [address] [id number] Cutting Inspector: Haja Schmitt MD, Phone: [phone] PERFORMED BY: [place] [address] PATHOLOGIST SPOT WELDER PABLO ZHAO M.D. Performed By: #### C MP, LDH, FE and TIBC, [id number], CBC, RETIC, HAPT #### [address] [place] [address] [place] #### CU #### [facility] , Creatinine [Mass/volume] in Serum or PlasmaOrdered By: Tiffany Escobar on 06-21-2023 Creatinine [Mass/Vol] 1.03 mg/dL Normal 0.70-1.30 [facility] Comment on above: Performed By: #### C MP, LDH, FE and TIBC, [id number], CBC, RETIC, HAPT #### [facility] [address] [place] [address] [place] #### CU #### [facility] , Fecal occult blood detection by immunochemistryOrdered By: Tiffany Escobar on 06-21-2023 Hemoglobin.gastrointest inal Ql (Stl) [facility] Ferritin [Mass/volume] in Se rum or PlasmaOrdered By: Tiffany Escobar on 06-21-2023 Ferritin [Mass/Vol] 59.0 ng/mL Normal 23.9-336.2 [facility] Comment on above: Order Comment: Comme nt on blood already drawn Result Comment: PERF ORMED BY: [place] [address] PATHOLOGIST SPOT WELDER PABLO ZHAO M.D. Performed By: #### C MP, LDH, FE and TIBC, [id number], CBC, RETIC, HAPT #### [facility] [address] [place] [address] [place] #### CU #### [facility] , Folate [Mass/volume] in Seru m or PlasmaOrdered By: Tiffany Escobar on 06-21-2023 Folate [Mass/Vol] 22.0 ng/mL >5.9 [facility] Comment on above: Folate reference ran ge: >5.9 ng/mlThe WHO technical consultation on folate and vitamin [id number] has determined that folate concentrations lessthan 4 ng/ml are considered deficient. Glucose [Mass/volume] in Ser um or PlasmaOrdered By: Tiffany Escobar on 06-21-2023 Glucose [Mass/Vol] 127 mg/dL High 70-100 [facility] Comment on above: ADA recommended refe rence rangeRandom Glucose Reference Range is dependent on time and content of last meal. Glucose of more than 200 mg/dL in a nonstressed, ambulatory subject supports the diagnosis of Diabetes Mellitus. Result Comment: [place] om Glucose Reference Range is dependent on time and content of last meal. Glucose of more than 200 mg/dL in a nonstressed, ambulatory subject supports the diagnosis of Diabetes Mellitus. ADA recommended reference range Performed By: #### C MP, LDH, FE and TIBC, [id number], CBC, RETIC, HAPT #### [address] #### CU #### [facility] , Haptoglobinon 06-21-2023 Haptoglobin 332 mg/dL High 44-215 [facility] Comment on above: Result Comment: PERF ORMED BY: [place] [address] PATHOLOGIST SPOT WELDER PABLO ZHAO M.D. Performed By: #### C MP, LDH, FE and TIBC, [id number], CBC, RETIC, HAPT #### [address] #### CU #### [facility] , Haptoglobin [Mass/volume] in Serum or PlasmaOrdered By: d Al-Marrawi on 06-21-2023 Haptoglobin [Mass/Vol] 332 mg/dL High 44-215 [facility] Iron [Mass/volume] in Serum or PlasmaOrdered By: d Al-Marrawi on 06-21-2023 Iron [Mass/Vol] 38 ug/dL Low 50-212 [facility] Comment on above: Performed By: #### C MP, LDH, FE and TIBC, [id number], CBC, RETIC, HAPT #### [place] [address] [place] #### CU #### [facility] , Iron and TIBC Profileon 05-28 % Iron Saturation 8.0 % Low 20-50 [facility] Comment on above: Performed By: #### C MP, LDH, FE and TIBC, [id number], CBC, RETIC, HAPT #### [facility] [address] [place] [address] [place] #### CU #### [facility] , Total Iron Binding Capacity 475 ug/dL High 255-450 [facility] Comment on above: Performed By: #### C MP, LDH, FE and TIBC, [id number], CBC, RETIC, HAPT #### [facility] [address] [place] [address] [place] #### CU #### [facility] , Iron binding capacity [Mass/ volume] in Serum or PlasmaOrdered By: Tiffany Escobar on 06-21-2023 Iron binding capacity [Mass/Vol] 475 ug/dL High 255-450 [facility] Iron saturation [Mass Fracti on] in Serum or PlasmaOrdered By: lubna Ha-Haider on 06-21-2023 Iron saturation [Mass fraction] 8.0 % Low 20-50 [facility] Ketones Auto test strip (U) [Mass/Vol]Ordered By: lubna Ha-Haider on 06-21-2023 Ketones (U) [Mass/Vol] Negative Negative [facility] LDH Lactate Dehydrogenaseon 06-21-2023 LDH Lactate Dehydrogenase 139 U/L Low 140-271 [facility] Comment on above: Performed By: #### C MP, LDH, FE and TIBC, [id number], CBC, RETIC, HAPT #### [facility] [address] [place] [address] [place] #### CU #### [facility] , Lactate dehydrogenase [Enzym atic activity/volume] in Serum or Plasma by Lactate to pyOrdered By: Tiffany Ha-Haider on 06-21-2023 LDH Lactate to pyruvate reaction [Catalytic activity/Vol] 139 U/L Low 140-271 [facility] Nitrite Test strip Ql (U)Ord ered By: Tiffany Escobar on 06-21-2023 Nitrite Ql (U) Negative Negative [facility] No Panel InformationOrdered By: Tiffany Escobar on 06-21-2023 Estimated GFR (CKD-EPI) > 60.0 mL/Min [facility] Creatinine Clearance (Chem 59.93 [facility] Potassium [Moles/volume] in Serum or PlasmaOrdered By: Tiffany Escobar on 06-21-2023 Potassium [Moles/Vol] 3.8 mmol/L Normal 3.5-5.1 [facility] Comment on above: Performed By: #### C MP, LDH, FE and TIBC, [id number], CBC, RETIC, HAPT #### [facility] [address] [place] [address] #### CU #### [facility] , Protein Auto test strip (U) [Mass/Vol]Ordered By: Tiffany JamieNeelimasue on 06-21-2023 Protein (U) [Mass/Vol] Negative Negative [facility] Protein [Mass/volume] in Ser um or PlasmaOrdered By: lubna Dominiksue on 06-21-2023 Protein [Mass/Vol] 7.2 g/dL Normal 6.4-8.9 [facility] Comment on above: Performed By: #### C MP, LDH, FE and TIBC, [id number], CBC, RETIC, HAPT #### [facility] [address] [place] [address] [place] #### CU #### [facility] , Reticulocyte Counton 023 Reticulocyte Number 0.065 10*6/uL Normal 0.024-0 .08 4 [facility] Comment on above: Result Comment: PERF ORMED BY: [place] [address] PATHOLOGIST SPOT WELDER PABLO ZHAO M.D. Performed By: #### C MP, LDH, FE and TIBC, [id number], CBC, RETIC, HAPT #### [facility] [address] [place] [address] [place] #### CU #### [facility] , Reticulocyte Percent 1.6 % High 0.5-1.5 [facility] Comment on above: Performed By: #### C MP, LDH, FE and TIBC, [id number], CBC, RETIC, HAPT #### [facility] [address] [place] [address] [place] #### CU #### [facility] , Reticulocytes/100 RBC Auto ( Bld)Ordered By: lubna Escobar on 06-21-2023 Reticulocytes/100 RBC (Bld) 1.6 % High 0.5-1.5 [facility] Serum globulin measurement b y calculation (mass/volume)Ordered By: lubna Maloney on 06-21-2023 Globulin (S) [Mass/Vol] 3.1 g/dL Normal [facility] Comment on above: Performed By: #### C MP, LDH, FE and TIBC, [id number], CBC, RETIC, HAPT #### [facility] [address] [place] [address] [place] #### CU #### [facility] , Serum or plasma albumin/glob ulin mass ratioOrdered By: lubna Escobar on 06-21-2023 Albumin/Globulin [Mass ratio] 1.3 {ratio} Normal [facility] Comment on above: Performed By: #### C MP, LDH, FE and TIBC, [id number], CBC, RETIC, HAPT #### [facility] [address] [place] [address] [place] #### CU #### [facility] , Serum or plasma anion gap de terminationOrdered By: lubna Escobar on 06-21-2023 Anion gap [Moles/Vol] 12.2 mmol/L Normal 6.0-15.0 [facility] Comment on above: Performed By: #### C MP, LDH, FE and TIBC, [id number], CBC, RETIC, HAPT #### [facility] [address] #### CU #### [facility] , Sodium [Moles/volume] in Ser um or PlasmaOrdered By: Tiffany Escobar on 06-21-2023 Sodium [Moles/Vol] 141 mmol/L Normal 136-145 [facility] Comment on above: Performed By: #### C MP, LDH, FE and TIBC, [id number], CBC, RETIC, HAPT #### [facility] [address] #### CU #### [facility] , Specific gravity Auto test s trip (U) [Rel density]Ordered By: Tiffany Escobar on 06-21-2023 Specific gravity (U) [Rel density] 1.028 1.001-1.03 0 [facility] Stool Occult Blood (Guaiac)o n 06-21-2023 Stool Occult Blood (Guaiac) Occult Blood Negative for Occult Blood by Guaiac Methodology ---- Reference range = Negative PERFORMED BY: [place] [address] PATHOLOGIST SPOT WELDER PABLO ZHAO M.D. Normal [facility] Comment on above: Performed By: #### O B(GUAIAC) ####[place] [id number] [address] Transferrin [Mass/volume] in Serum or PlasmaOrdered By: Tiffany Escobar on 06-21-2023 Transferrin [Mass/Vol] 339 mg/dL Normal 203-362 [facility] Comment on above: Performed By: #### C MP, LDH, FE and TIBC, [id number], CBC, RETIC, HAPT #### [facility] [address] [place] [address] #### CU #### [facility] , Urea nitrogen [Mass/volume] in Serum or PlasmaOrdered By: Tiffany Escobar on 06-21-2023 Urea nitrogen [Mass/Vol] 16 mg/dL Normal 7-25 [facility] Comment on above: Performed By: #### C MP, LDH, FE and TIBC, [id number], CBC, RETIC, HAPT #### [facility] [address] #### CU #### [facility] , Urinalysison 06-21-2023 Appearance (U) Clear Normal Clear [facility] Comment on above: Order Comment: Name Collection Type:: Voided Performed By: #### U A ####[address] Bilirubin,Urine Negative Normal Negative [facility] Comment on above: Order Comment: Name Collection Type:: Voided Performed By: #### U A ####[address] Glucose Ql (U) >=1000 High Normal [facility] Comment on above: Order Comment: Name Collection Type:: Voided Performed By: #### U A ####[address] Ketones Ql (U) Negative Normal Negative [facility] Comment on above: Order Comment: Name Collection Type:: Voided Performed By: #### U A ####[address] Leukocyte esterase Test strip Ql (U) Negative Normal Negative [facility] Comment on above: Order Comment: Name Collection Type:: Voided Performed By: #### U A ####[address] Nitrite,Urine Negative Normal Negative [facility] Comment on above: Order Comment: Name Collection Type:: Voided Performed By: #### U A ####[place] [id number] [facility] Occult Blood,Urine Negative Normal Negative [facility] Comment on above: Order Comment: Name Collection Type:: Voided Result Comment: PERF ORMED BY: [facility] [address] [place] [address] PATHOLOGIST SPOT WELDER PABLO ZHAO M.D. Performed By: #### U A ####[address] Protein,Urine Negative Normal Negative [facility] Comment on above: Order Comment: Name Collection Type:: Voided Performed By: #### U A ####[address] Specificy [place],Urine 1.028 Normal 1.00 1-1.03 0 [facility] Comment on above: Order Comment: Name Collection Type:: Voided Performed By: #### U A ####[address] Urobilinogen,Urine Normal Normal Normal [facility] Comment on above: Order Comment: Name Collection Type:: Voided Performed By: #### U A ####[address] Urine clarity by refractomet ry automatedOrdered By: Tiffany Escobar on 06-21-2023 Clarity Refractometry automated (U) Clear Clear [facility] Urine glucose measurement by automated test strip (mass/volume)Ordered By: Tiffany Escobar on 06-21-2023 Glucose Auto test strip (U) [Mass/Vol] >=1000 mg/dL High Normal [facility] Urine hemoglobin detection b y automated test stripOrdered By: Tiffany Escobar on 06-21-2023 Hemoglobin Auto test strip Ql (U) Negative Negative [facility] Urine leukocyte esterase det ection by automated test stripOrdered By: Tiffany Maloney on 06-21-2023 Leukocyte esterase Auto test strip Ql (U) Negative Negative [facility] Urine pH measurement by auto mated test stripOrdered By: Tiffany Escobar on 06-21-2023 pH (U) 7.5 [pH] Normal 5.0-9.0 [facility] Comment on above: Order Comment: Name Collection Type:: Voided Performed By: #### U A ####[facility] [address] Urobilinogen Auto test strip (U) [Mass/Vol]Ordered By: lubna Escobar on 06-21-2023 Urobilinogen (U) [Mass/Vol] Normal mg/dL Normal [facility] Vit. B12/Folate Profileon Folate 22.0 ng/mL Normal >5.9 [facility] Comment on above: Result Comment: Helene te reference range: >5.9 ng/ml The WHO technical consultation on folate and vitamin b12 deficiencies has determined that folate concentrations less than 4 ng/ml are considered deficient. PERFORMED BY: [place] [address] PATHOLOGIST SPOT WELDER PABLO ZHAO M.D. Performed By: #### C MP, LDH, FE and TIBC, [id number], CBC, RETIC, HAPT #### [facility] [address] #### CU #### [facility] , Vitamin B12 ser/plasOrdered By: Tiffany Escobar on 06-21-2023 Cobalamin (Vitamin B12) [Mass/Vol] 1380 pg/mL High 180-914 [facility] Comment on above: Performed By: #### C MP, LDH, FE and TIBC, [id number], CBC, RETIC, HAPT #### [address] #### CU #### [facility] , Complete Blood Count Auto Di ffon 06-20-2023 Basophils (Bld) [#/Vol] 0.0 10*3/uL Normal 0.0-0.2 [facility] Comment on above: Result Comment: PERF ORMED BY: [place] [address] PATHOLOGIST SPOT WELDER PABLO ZHAO M.D. Performed By: #### C MP, LDH, FE and TIBC, [id number], CBC, RETIC, HAPT #### [address] #### CU #### [facility] , Basophils/100 WBC (Bld) 0.9 % Normal . Luan marrero [facility] Comment on above: Performed By: #### C MP, LDH, FE and TIBC, [id number], CBC, RETIC, HAPT #### [address] #### CU #### [facility] , Eosinophils (Bld) [#/Vol] 0.4 10*3/uL Normal 0.0-0.45 [facility] Comment on above: Performed By: #### C MP, LDH, FE and TIBC, [id number], CBC, RETIC, HAPT #### [address] #### CU #### [facility] , Eosinophils/100 WBC (Bld) 9.4 % Normal . [facility] Comment on above: Performed By: #### C MP, LDH, FE and TIBC, [id number], CBC, RETIC, HAPT #### [place] [address] [place] #### CU #### [facility] , Erythrocyte distribution width (RBC) [Ratio] 19.1 % High 12.0-14.8 [facility] Comment on above: Performed By: #### C MP, LDH, FE and TIBC, [id number], CBC, RETIC, HAPT #### [place] [address] [place] #### CU #### [facility] , Hematocrit (Bld) [Volume fraction] 30.6 % Low 38.8-50.0 [facility] Comment on above: Performed By: #### C MP, LDH, FE and TIBC, [id number], CBC, RETIC, HAPT #### [place] [address] [place] #### CU #### [facility] , Hemoglobin (Bld) [Mass/Vol] 9.4 g/dL Low 13.0-17.0 [facility] Comment on above: Performed By: #### C MP, LDH, FE and TIBC, [id number], CBC, RETIC, HAPT #### [address] #### CU #### [facility] , Lymphocytes (Bld) [#/Vol] 1.2 10*3/uL Normal 1.00-4.8 [facility] Comment on above: Performed By: #### C MP, LDH, FE and TIBC, [id number], CBC, RETIC, HAPT #### [address] #### CU #### [facility] , Lymphocytes/100 WBC (Bld) 32.7 % Normal . [facility] Comment on above: Performed By: #### C MP, LDH, FE and TIBC, [id number], CBC, RETIC, HAPT #### [address] #### CU #### [facility] , MCH (RBC) [Entitic mass] 24.0 pg Low 27.5-35.2 [facility] Comment on above: Performed By: #### C MP, LDH, FE and TIBC, [id number], CBC, RETIC, HAPT #### [place] [address] [place] #### CU #### [facility] , MCV (RBC) [Entitic vol] 77.8 fL Low 83.5-101 T he [facility] Comment on above: Performed By: #### C MP, LDH, FE and TIBC, [id number], CBC, RETIC, HAPT #### [place] [address] [place] #### CU #### [facility] , Mean Corpuscular HGB Conc 30.9 g/dL Low 32.5-35.6 [facility] Comment on above: Performed By: #### C MP, LDH, FE and TIBC, [id number], CBC, RETIC, HAPT #### [place] [address] [place] #### CU #### [facility] , Monocytes (Bld) [#/Vol] 0.5 10*3/uL Normal 0.0-0.8 [facility] Comment on above: Performed By: #### C MP, LDH, FE and TIBC, [id number], CBC, RETIC, HAPT #### [place] [address] [place] #### CU #### [facility] , Monocytes/100 WBC (Bld) 12.9 % Normal . T elida [facility] Comment on above: Performed By: #### C MP, LDH, FE and TIBC, [id number], CBC, RETIC, HAPT #### [place] [address] [place] #### CU #### [facility] , Neutrophils (Bld) [#/Vol] 1.7 10*3/uL Low 1.8-7.7 [facility] Comment on above: Performed By: #### C MP, LDH, FE and TIBC, [id number], CBC, RETIC, HAPT #### [place] [address] [place] #### CU #### [facility] , Neutrophils/100 WBC (Bld) 44.1 % Normal . [facility] Comment on above: Performed By: #### C MP, LDH, FE and TIBC, [id number], CBC, RETIC, HAPT #### [place] [address] [place] #### CU #### [facility] , NRBC% 0.4 /100{WBC} Normal 0-0.5 [facility] Comment on above: Performed By: #### C MP, LDH, FE and TIBC, [id number], CBC, RETIC, HAPT #### [place] [address] [place] #### CU #### [facility] , Platelet mean volume (Bld) [Entitic vol] 7.1 fL Normal 6.6-10.1 [facility] Comment on above: Performed By: #### C MP, LDH, FE and TIBC, [id number], CBC, RETIC, HAPT #### [place] [address] [place] #### CU #### [facility] , Platelets (Bld) [#/Vol] 190 10*3/uL Normal 150-450 [facility] Comment on above: Performed By: #### C MP, LDH, FE and TIBC, [id number], CBC, RETIC, HAPT #### [place] [address] [place] #### CU #### [facility] , RBC (Bld) [#/Vol] 3.93 10*6/uL Normal 3.90-5.60 [facility] Comment on above: Performed By: #### C MP, LDH, FE and TIBC, [id number], CBC, RETIC, HAPT #### [place] [address] [place] #### CU #### [facility] , WBC (Bld) [#/Vol] 3.7 10*3/uL Low 4.1-10.5 [facility] Comment on above: Performed By: #### C MP, LDH, FE and TIBC, [id number], CBC, RETIC, HAPT #### [place] [address] [place] #### CU #### [facility] , Comprehensive Metabolic Pane reid 06-20-2023 Albumin [Mass/Vol] 4.1 g/dL Normal 3.5-5.7 [facility] Comment on above: Performed By: #### C MP, LDH, FE and TIBC, [id number], CBC, RETIC, HAPT #### [place] [address] [place] #### CU #### [facility] , Albumin/Globulin [Mass ratio] 1.4 {ratio} Normal [facility] Comment on above: Performed By: #### C MP, LDH, FE and TIBC, [id number], CBC, RETIC, HAPT #### [place] [address] [place] #### CU #### [facility] , ALP [Catalytic activity/Vol] 67 U/L Normal 34-104 [facility] Comment on above: Performed By: #### C MP, LDH, FE and TIBC, [id number], CBC, RETIC, HAPT #### [place] [address] [place] #### CU #### [facility] , ALT [Catalytic activity/Vol] 9 U/L Normal 7-52 [facility] Comment on above: Performed By: #### C MP, LDH, FE and TIBC, [id number], CBC, RETIC, HAPT #### [place] [address] [place] #### CU #### [facility] , Anion gap [Moles/Vol] 10.9 mmol/L Normal 6.0-15.0 [facility] Comment on above: Performed By: #### C MP, LDH, FE and TIBC, [id number], CBC, RETIC, HAPT #### [address] [address] [place] #### CU #### [facility] , AST [Catalytic activity/Vol] 17 U/L Normal 13-39 [facility] Comment on above: Performed By: #### C MP, LDH, FE and TIBC, [id number], CBC, RETIC, HAPT #### [place] [address] [place] #### CU #### [facility] , Bilirubin [Mass/Vol] 0.4 mg/dL Normal 0.3-1.0 [facility] Comment on above: Performed By: #### C MP, LDH, FE and TIBC, [id number], CBC, RETIC, HAPT #### [address] #### CU #### [facility] , Calcium [Mass/Vol] 9.5 mg/dL Normal 8.6-10.3 [facility] Comment on above: Performed By: #### C MP, LDH, FE and TIBC, [id number], CBC, RETIC, HAPT #### [place] [address] [place] #### CU #### [facility] , Chloride [Moles/Vol] 100 mmol/L Normal 98-107 [facility] Comment on above: Performed By: #### C MP, LDH, FE and TIBC, [id number], CBC, RETIC, HAPT #### [place] [address] [place] #### CU #### [facility] , CO2 [Moles/Vol] 34.2 mmol/L High 21.0-31.0 [facility] Comment on above: Performed By: #### C MP, LDH, FE and TIBC, [id number], CBC, RETIC, HAPT #### [place] [address] [place] #### CU #### [facility] , Creatinine [Mass/Vol] 0.98 mg/dL Normal 0.70-1.30 [facility] Comment on above: Performed By: #### C MP, LDH, FE and TIBC, [id number], CBC, RETIC, HAPT #### [place] [address] [place] #### CU #### [facility] , Creatinine Clr Calc Pharmacy 64.64 Normal [facility] Comment on above: Performed By: #### C MP, LDH, FE and TIBC, [id number], CBC, RETIC, HAPT #### [place] [address] [place] #### CU #### [facility] , GFR/1.73 sq M.predicted MDRD (S/P/Bld) [Vol rate/Area] mL/min/{1.73_m2} Normal [facility] Comment on above: Performed By: #### C MP, LDH, FE and TIBC, [id number], CBC, RETIC, HAPT #### [place] [address] [place] #### CU #### [facility] , Globulin (S) [Mass/Vol] 3.0 g/dL Normal T he [facility] Comment on above: Performed By: #### C MP, LDH, FE and TIBC, [id number], CBC, RETIC, HAPT #### [place] [address] [place] #### CU #### [facility] , Glucose [Mass/Vol] 149 mg/dL High 70-100 [facility] Comment on above: Result Comment: [place] Glucose Reference Range is dependent on time and content of last meal. Glucose of more than 200 mg/dL in a nonstressed, ambulatory subject supports the diagnosis of Diabetes Mellitus. ADA recommended reference range Performed By: #### C MP, LDH, FE and TIBC, [id number], CBC, RETIC, HAPT #### [place] [address] [place] #### CU #### [facility] , Potassium [Moles/Vol] 4.1 mmol/L Normal 3.5-5.1 [facility] Comment on above: Performed By: #### C MP, LDH, FE and TIBC, [id number], CBC, RETIC, HAPT #### [place] [address] [place] #### CU #### [facility] , Protein [Mass/Vol] 7.1 g/dL Normal 6.4-8.9 [facility] Comment on above: Performed By: #### C MP, LDH, FE and TIBC, [id number], CBC, RETIC, HAPT #### [address] #### CU #### [facility] , Sodium [Moles/Vol] 141 mmol/L Normal 136-145 [facility] Comment on above: Performed By: #### C MP, LDH, FE and TIBC, [id number], CBC, RETIC, HAPT #### [place] [address] [place] #### CU #### [facility] , Urea nitrogen [Mass/Vol] 17 mg/dL Normal 7-25 [facility] Comment on above: Performed By: #### C MP, LDH, FE and TIBC, [id number], CBC, RETIC, HAPT #### [place] [address] [place] #### CU #### [facility] , Thyrotropin [Units/volume] i n Serum or PlasmaOrdered By: Tanvi Alonso on 06-20-2023 TSH Qn 3.35 m[IU]/L Normal 0.45-5.33 [facility] Comment on above: Result Comment: PERF ORMED BY: [place] [address] PATHOLOGIST SPOT WELDER PABLO ZHAO M.D. 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 Authentication Interface Message Text EMERGENCY TRIAGE, TREAT AND TRANSPORT (ET3) DOCUMENTATION OF TELEHEALTH VISIT Date / Time: 12/28/20222099 Name: Roxann Rm : 1950 SSN: (Not on file) EMS Agency: [facility] [x] Verbal consent obtained [] [...] Completed by: Em Staples MD Normal [facility] XR CHEST 2 Von 12-26-2022 XR [...] OBINNA ARORA Date: 2022-12-26 17:38 Normal The [facility] CBC AUTO DIFFon 12-15-2022 BASO # 0.0 103/ul Normal 0.0-0.1 [facility] Comment on above: Performed By: #### I NFLUAB #### [facility] [address] [place] [address] [address] Berta Thakkar Basophils/100 WBC (Bld) 0.3 % Normal 0.2-2.0 [facility] Comment on above: Performed By: #### I NFLUAB #### [facility] [address] [place] [address] [address] Berta Thakkar EO # 0.0 103/ul Normal 0.0-0.7 [facility] Comment on above: Performed By: #### I NFLUAB #### [facility] [address] [place] [address] [address] Berta Thakkar Eosinophils/100 WBC (Bld) 0.0 % Critically low 0.9-7.0 [facility] Comment on above: Performed By: #### I NFLUAB #### [facility] [address] [place] [address] [address] Berta Thakkar Erythrocyte distribution width (RBC) [Ratio] 26.2 % Critically high 11.0-15.0 [facility] Comment on above: Performed By: #### I NFLUAB #### [facility] [address] [place] [address] Dr. Berta Thakkar Hematocrit (Bld) [Volume fraction] 29.3 % Critically low 42.0-54.0 [facility] Comment on above: Performed By: #### I NFLUAB #### [facility] [address] [place] [address] Dr. Berta Thakkar Hemoglobin (Bld) [Mass/Vol] 9.2 g/dL Critically low 14.0-18.0 [facility] Comment on above: Performed By: #### I NFLUAB #### [facility] [address] [place] [address] Dr. Berta Thakkar IG # 0.01 10e3/ul Normal 0.00-0.03 [facility] Comment on above: Performed By: #### I NFLUAB #### [facility] [address] [place] [address] Dr. Berta Thakkar IG % 0.3 % Normal 0.0-0.5 [facility] Comment on above: Performed By: #### I NFLUAB #### [facility] [address] [place] [address] Dr. Berta Thakkar LYMPH # 0.1 103/ul Critically low 1.2-3.8 [facility] Comment on above: Performed By: #### I NFLUAB #### [facility] [address] [place] [address] Dr. Berta Thakkar Lymphocytes/100 WBC (Bld) 3.6 % Critically low 20.5-60.0 [facility] Comment on above: Performed By: #### I NFLUAB #### [facility] [address] [place] [address] Dr. Berta Tahkkar MANUAL DIFF REQ NO Normal [facility] Comment on above: Performed By: #### I NFLUAB #### [facility] [address] [place] [address] Dr. Berta Thakkar MCH (RBC) [Entitic mass] 28.0 pg Normal 25.9-34.0 [facility] Comment on above: Performed By: #### I NFLUAB #### [facility] [address] [place] [address] Dr. Berta Thakkar MCHC (RBC) [Mass/Vol] 31.4 g/dL Normal 29.9-35.2 [facility] Comment on above: Performed By: #### I NFLUAB #### [facility] [address] [place] [address] Dr. Berta Thakkar MCV (RBC) [Entitic vol] 89.3 fL Normal 80.0-94.0 [facility] Comment on above: Performed By: #### I NFLUAB #### [facility] [address] [place] [address] Dr. Berta Thakkar MONO # 0.1 103/ul Critically low 0.3-0.8 [facility] Comment on above: Performed By: #### I NFLUAB #### [facility] [address] [place] [address] Dr. Berta Thakkar Monocytes/100 WBC (Bld) 2.2 % Normal 1.7-12.0 [facility] Comment on above: Performed By: #### I NFLUAB #### [facility] [address] [place] [address] Dr. Berta Thakkar NEUT # 3.4 103/ul Normal 1.4-6.5 [facility] Comment on above: Performed By: #### I NFLUAB #### [facility] [address] [place] [address] Dr. Berta Thakkar Neutrophils/100 WBC (Bld) 93.6 % Critically high 43.0-75.0 [facility] Comment on above: Performed By: #### I NFLUAB #### [facility] [address] [place] [address] Dr. Berta Thakkar Platelet mean volume (Bld) [Entitic vol] 9.7 fL Normal 9.5-13.5 [facility] Comment on above: Performed By: #### I NFLUAB #### [facility] [address] [address] [address] Berta Thakkar PLT 77 103/ul Critically low 150-450 [facility] Comment on above: Performed By: #### I NFLUAB #### [facility] [address] [address] [address] Berta Thakkar RBC 3.28 106/ul Critically low 4.70-6.10 [facility] Comment on above: Performed By: #### I NFLUAB #### [facility] [address] [address] [address] Berta Thakkar WBC 3.6 103/ul Critically low 4.0-11.0 [facility] Comment on above: Performed By: #### I NFLUAB #### [facility] [address] [place] [address] Dr. Berta Thakkar PROF 14(COMP METB)on 023 Albumin [Mass/Vol] 2.5 g/dL Critically low 3.4-5.0 [facility] Comment on above: Performed By: #### I NFLUAB #### [facility] [address] [place] [address] Dr. Berta Thakkar Albumin/Globulin [Mass ratio] 0.7 {ratio} Normal [facility] Comment on above: Performed By: #### I NFLUAB #### [facility] [address] [place] [address] Dr. Berta Thakkar ALP [Catalytic activity/Vol] 46 U/L Normal 46-116 [facility] Comment on above: Performed By: #### I NFLUAB #### [facility] [address] [place] [address] Dr. Berta Thakkar ALT [Catalytic activity/Vol] 19 U/L Normal 16-63 [facility] Comment on above: Performed By: #### I NFLUAB #### [facility] [address] [place] [address] Dr. Berta Thakkar Anion gap [Moles/Vol] 11.0 mmol/L Normal [facility] Comment on above: Performed By: #### I NFLUAB #### [facility] [address] [address] [address] Berta Thakkar AST [Catalytic activity/Vol] 33 U/L Normal 15-37 [facility] Comment on above: Performed By: #### I NFLUAB #### [facility] [address] [place] [address] Dr. Berta Thakkar Bilirubin [Mass/Vol] 0.3 mg/dL Normal 0.2-1.0 [facility] Comment on above: Performed By: #### I NFLUAB #### [facility] [address] [place] [address] Dr. Berta Thakkar Calcium [Mass/Vol] 8.6 mg/dL Normal 8.5-10.1 [facility] Comment on above: Performed By: #### I NFLUAB #### [facility] [address] [place] [address] Dr. Berta Thakkar Chloride [Moles/Vol] 109 mmol/L Critically high 98-107 [facility] Comment on above: Performed By: #### I NFLUAB #### [facility] [address] [place] [address] Dr. Berta Thakkar CO2 [Moles/Vol] 26.1 mmol/L Normal 21.0-32.0 [facility] Comment on above: Performed By: #### I NFLUAB #### [facility] [address] [place] [address] Dr. Berta Thakkar Creatinine [Mass/Vol] 0.89 mg/dL Normal 0.70-1.30 [facility] Comment on above: Performed By: #### I NFLUAB #### [facility] [address] [place] [address] Dr. Berta Thakkar EGFR-AF DOMINICAN >60 Normal >=60 [facility] Comment on above: Performed By: #### I NFLUAB #### [facility] [address] [place] [address] Dr. Berta Thakkar EGFR-NON AF DOMINICAN >60 Normal >=60 [facility] Comment on above: Performed By: #### I NFLUAB #### [facility] [address] [place] [address] Dr. Berta Thakkar Globulin (S) [Mass/Vol] 3.7 g/dL Normal [facility] Comment on above: Performed By: #### I NFLUAB #### [facility] [address] [address] [address] Berta Thakkar Glucose [Mass/Vol] 188 mg/dL Critically high 74-106 [facility] Comment on above: Performed By: #### I NFLUAB #### [facility] [address] [address] [address] Berta Thakkar Potassium [Moles/Vol] 4.1 mmol/L Normal 3.5-5.1 [facility] Comment on above: Performed By: #### I NFLUAB #### [facility] [address] [place] [address] Dr. Berta Thakkar Protein [Mass/Vol] 6.2 g/dL Critically low 6.4-8.2 [facility] Comment on above: Performed By: #### I NFLUAB #### [facility] [address] [place] [address] Dr. Berta Thakkar Sodium [Moles/Vol] 142 mmol/L Normal 136-145 [facility] Comment on above: Performed By: #### I NFLUAB #### [facility] [address] [place] [address] Dr. Berta Thakkar Urea nitrogen [Mass/Vol] 31.0 mg/dL Critically high 7.0-18.0 [facility] Comment on above: Performed By: #### I NFLUAB #### [facility] [address] [place] [address] Dr. eBrta Thakkar Urea nitrogen/Creatinine [Mass ratio] 34.8 mg/mg Normal [facility] Comment on above: Performed By: #### I NFLUAB #### [facility] [address] [place] [address] Dr. Berta Thakkar CBC AUTO DIFFon 12-14-2022 BASO # 0.0 103/ul Normal 0.0-0.1 [facility] Comment on above: Performed By: #### I NFLUAB #### [facility] [address] [address] [address] Berta Thakkar Basophils/100 WBC (Bld) 0.0 % Critically low 0.2-2.0 [facility] Comment on above: Performed By: #### I NFLUAB #### [facility] [address] [address] [address] Berta Thakkar EO # 0.0 103/ul Normal 0.0-0.7 [facility] Comment on above: Performed By: #### I NFLUAB #### [facility] [address] [place] [address] Dr. Berta Thakkar Eosinophils/100 WBC (Bld) 0.0 % Critically low 0.9-7.0 [facility] Comment on above: Performed By: #### I NFLUAB #### [facility] [address] [place] [address] Dr. Berta Thakkar Erythrocyte distribution width (RBC) [Ratio] 26.3 % Critically high 11.0-15.0 [facility] Comment on above: Performed By: #### I NFLUAB #### [facility] [address] [place] [address] Dr. Berta Thakkar Hematocrit (Bld) [Volume fraction] 29.7 % Critically low 42.0-54.0 [facility] Comment on above: Performed By: #### I NFLUAB #### [facility] [address] [place] [address] Dr. Berta Thakkar Hemoglobin (Bld) [Mass/Vol] 9.2 g/dL Critically low 14.0-18.0 [facility] Comment on above: Performed By: #### I NFLUAB #### [facility] [address] [place] [address] Dr. Berta Thakkar IG # 0.00 10e3/ul Normal 0.00-0.03 [facility] Comment on above: Performed By: #### I NFLUAB #### [facility] [address] [place] [address] Dr. Berta Thakkar IG % 0.0 % Normal 0.0-0.5 [facility] Comment on above: Performed By: #### I NFLUAB #### [facility] [address] [address] [address] Berta Thakkar LYMPH # 0.2 103/ul Critically low 1.2-3.8 [facility] Comment on above: Performed By: #### I NFLUAB #### [facility] [address] [address] [address] Berta Thakkar Lymphocytes/100 WBC (Bld) 5.4 % Critically low 20.5-60.0 [facility] Comment on above: Performed By: #### I NFLUAB #### [facility] [address] [address] [address] Berta Thakkar MANUAL DIFF REQ NO Normal [facility] Comment on above: Performed By: #### I NFLUAB #### [facility] [address] [address] [address] Berta Thakkar MCH (RBC) [Entitic mass] 27.8 pg Normal 25.9-34.0 [facility] Comment on above: Performed By: #### I NFLUAB #### [facility] [address] [address] [address] Berta Thakkar MCHC (RBC) [Mass/Vol] 31.0 g/dL Normal 29.9-35.2 [facility] Comment on above: Performed By: #### I NFLUAB #### [facility] [address] [address] [address] Berta Thakkar MCV (RBC) [Entitic vol] 89.7 fL Normal 80.0-94.0 [facility] Comment on above: Performed By: #### I NFLUAB #### [facility] [address] [address] [address] Berta Thakkar MONO # 0.1 103/ul Critically low 0.3-0.8 [facility] Comment on above: Performed By: #### I NFLUAB #### [facility] [address] [address] [address] Berta Thakkar Monocytes/100 WBC (Bld) 1.6 % Critically low 1.7-12.0 [facility] Comment on above: Performed By: #### I NFLUAB #### [facility] [address] [place] [address] Dr. Berta Thakkar NEUT # 3.5 103/ul Normal 1.4-6.5 [facility] Comment on above: Performed By: #### I NFLUAB #### [facility] [address] [place] [address] Dr. Berta Thakkar Neutrophils/100 WBC (Bld) 93.0 % Critically high 43.0-75.0 [facility] Comment on above: Performed By: #### I NFLUAB #### [facility] [address] [place] [address] Dr. Berta Thakkar Platelet mean volume (Bld) [Entitic vol] 9.7 fL Normal 9.5-13.5 [facility] Comment on above: Performed By: #### I NFLUAB #### [facility] [address] [place] [address] Dr. Berta Thakkar PLT 99 103/ul Critically low 150-450 [facility] Comment on above: Performed By: #### I NFLUAB #### [facility] [address] [place] [address] Dr. Berta Thakkar RBC 3.31 106/ul Critically low 4.70-6.10 [facility] Comment on above: Performed By: #### I NFLUAB #### [facility] [address] [place] [address] Dr. Berta Thakkar WBC 3.7 103/ul Critically low 4.0-11.0 [facility] Comment on above: Performed By: #### I NFLUAB #### [facility] [address] [place] [address] Dr. Berta Thakkar PROF 14(COMP METB)on 023 Albumin [Mass/Vol] 2.5 g/dL Critically low 3.4-5.0 [facility] Comment on above: Performed By: #### C MP #### [facility] [address] [place] [address] Dr. Berta Thakkar Albumin/Globulin [Mass ratio] 0.7 {ratio} Normal [facility] Comment on above: Performed By: #### C MP #### [facility] [address] [place] [address] Dr. Berta Thakkar ALP [Catalytic activity/Vol] 55 U/L Normal 46-116 [facility] Comment on above: Performed By: #### C MP #### [facility] [address] [address] [address] Berta Thakkar ALT [Catalytic activity/Vol] 24 U/L Normal 16-63 [facility] Comment on above: Performed By: #### C MP #### [facility] [address] [place] [address] Dr. Berta Thakkar Anion gap [Moles/Vol] 12.6 mmol/L Normal [facility] Comment on above: Performed By: #### C MP #### [facility] [address] [place] [address] Dr. Berta Thakkar AST [Catalytic activity/Vol] 34 U/L Normal 15-37 [facility] Comment on above: Performed By: #### C MP #### [facility] [address] [place] [address] Dr. Berta Thakkar Bilirubin [Mass/Vol] 0.3 mg/dL Normal 0.2-1.0 [facility] Comment on above: Performed By: #### C MP #### [facility] [address] [place] [address] Dr. Berta Thakkar Calcium [Mass/Vol] 8.5 mg/dL Normal 8.5-10.1 [facility] Comment on above: Performed By: #### C MP #### [facility] [address] [place] [address] Dr. Berta Thakkar Chloride [Moles/Vol] 105 mmol/L Normal 98-107 [facility] Comment on above: Performed By: #### C MP #### [facility] [address] [place] [address] Dr. Berta Thakkar CO2 [Moles/Vol] 25.5 mmol/L Normal 21.0-32.0 [facility] Comment on above: Performed By: #### C MP #### [facility] [address] [address] [address] Berta Thakkar Creatinine [Mass/Vol] 0.97 mg/dL Normal 0.70-1.30 [facility] Comment on above: Performed By: #### C MP #### [facility] [address] [address] [address] Berta Thakkar EGFR-AF DOMINICAN >60 Normal >=60 [facility] Comment on above: Performed By: #### C MP #### [facility] [address] [address] [address] Berta Thakkar EGFR-NON AF DOMINICAN >60 Normal >=60 [facility] Comment on above: Performed By: #### C MP #### [facility] [address] [place] [address] Dr. Berta Thakkar Globulin (S) [Mass/Vol] 3.7 g/dL Normal [facility] Comment on above: Performed By: #### C MP #### [facility] [address] [place] [address] Dr. Berta Thakkar Glucose [Mass/Vol] 186 mg/dL Critically high 74-106 [facility] Comment on above: Performed By: #### C MP #### [facility] [address] [place] [address] Dr. Berta Thakkar Potassium [Moles/Vol] 4.1 mmol/L Normal 3.5-5.1 [facility] Comment on above: Performed By: #### C MP #### [facility] [address] [place] [address] Dr. Berta Thakkar Protein [Mass/Vol] 6.2 g/dL Critically low 6.4-8.2 [facility] Comment on above: Performed By: #### C MP #### [facility] [address] [address] [address] Berta Thakkar Sodium [Moles/Vol] 139 mmol/L Normal 136-145 [facility] Comment on above: Performed By: #### C MP #### [facility] [address] [address] [address] Berta Thakkar Urea nitrogen [Mass/Vol] 23.0 mg/dL Critically high 7.0-18.0 [facility] Comment on above: Performed By: #### C MP #### [facility] [address] [address] [address] Berta Thakkar Urea nitrogen/Creatinine [Mass ratio] 23.7 mg/mg Normal [facility] Comment on above: Performed By: #### C MP #### [facility] [address] [address] [address] Berta Thakkar PTT HEPARIN MONITORon 2022 aPTT Coag (Bld) [Time] 96.8 s Critically high 39.5-54. 2 [facility] Comment on above: Performed By: #### P T, PTT #### [facility] [address] [place] [address] Dr. Berta Thakkar TROPONIN, HIGH SENSITIVITYon 12-14-2022 HSTROP 734.6 pg/mL Critically high 4.0-76.1 [facility] Comment on above: Result Comment: CUT- OFF POINTS HAVE BEEN ESTABLISHED BASED ON THE FOURTH UNIVERSAL DEFINITIONS OF MYOCARDIAL INFARCTION. THE UPPER REFERENCE LIMIT (URL) OF TROPONIN, DEFINED THE 99TH PERCENTILE OF cTnI DISTRIBUTION IN A REFERENCE POPULATION, HAS BEEN CONFIRMED THE DECISION THRESHOLD FOR [place] DIAGNOSIS. Performed By: #### I NFLUAB #### [facility] [address] [place] [address] Dr. Berta Thakkar CARDIAC PAIGE 3-6on 3 CK [Catalytic activity/Vol] 49 U/L Normal 39-308 [facility] Comment on above: Performed By: #### C MREP #### [facility] [address] [place] [address] Dr. Berta Thakkar CK.MB [Mass/Vol] 0.73 ng/mL Normal <=3.60 [facility] Comment on above: Performed By: #### C MREP #### [facility] [address] [place] [address] Dr. Berta Thakkar HSTROP 177.7 pg/mL Critically high 4.0-76.1 [facility] Comment on above: Result Comment: CUT- OFF POINTS HAVE BEEN ESTABLISHED BASED ON THE FOURTH UNIVERSAL DEFINITIONS OF MYOCARDIAL INFARCTION. THE UPPER REFERENCE LIMIT (URL) OF TROPONIN, DEFINED THE 99TH PERCENTILE OF cTnI DISTRIBUTION IN A REFERENCE POPULATION, HAS BEEN CONFIRMED THE DECISION THRESHOLD FOR MT DIAGNOSIS. Performed By: #### C MREP #### [facility] [address] [address] [address] Berta Thakkar CK [Catalytic activity/Vol] 38 U/L Critically low 39-308 [facility] Comment on above: Performed By: #### I NFLUAB #### [facility] [address] [address] [address] Berta Thakkar CK.MB [Mass/Vol] 0.38 ng/mL Normal <=3.60 [facility] Comment on above: Performed By: #### I NFLUAB #### [facility] [address] [place] [address] Dr. Berta Thakkar HSTROP 71.8 pg/mL Normal 4.0-76.1 [facility] Comment on above: Result Comment: CUT- OFF POINTS HAVE BEEN ESTABLISHED BASED ON THE FOURTH UNIVERSAL DEFINITIONS OF MYOCARDIAL INFARCTION. THE UPPER REFERENCE LIMIT (URL) OF TROPONIN, DEFINED THE 99TH PERCENTILE OF cTnI DISTRIBUTION IN A REFERENCE POPULATION, HAS BEEN CONFIRMED THE DECISION THRESHOLD FOR MT DIAGNOSIS. Performed By: #### I NFLUAB #### [facility] [address] [place] [address] Dr. Berta Thakkar CARDIAC PAIGE ADMITon 023 CK [Catalytic activity/Vol] 47 U/L Normal 39-308 [facility] Comment on above: Performed By: #### H STROPN #### [facility] [address] [address] [address] Berta Thakkar CK.MB [Mass/Vol] 0.36 ng/mL Normal <=3.60 [facility] Comment on above: Performed By: #### H STROPN #### [facility] [address] [address] [address] Berta Thakkar HSTROP 83.0 pg/mL Critically high 4.0-76.1 [facility] Comment on above: Result Comment: CUT- OFF POINTS HAVE BEEN ESTABLISHED BASED ON THE FOURTH UNIVERSAL DEFINITIONS OF MYOCARDIAL INFARCTION. THE UPPER REFERENCE LIMIT (URL) OF TROPONIN, DEFINED THE 99TH PERCENTILE OF cTnI DISTRIBUTION IN A REFERENCE POPULATION, HAS BEEN CONFIRMED THE DECISION THRESHOLD FOR MT DIAGNOSIS. Performed By: #### H STROPN #### [facility] [address] [place] [address] Dr. Berta Thakkar CAROL 56 ng/mL Normal 16-96 [facility] Comment on above: Performed By: #### H STROPN #### [facility] [address] [place] [address] Dr. Berta Thakkar CBC AUTO DIFFon 12-13-2022 BASO # 0.0 103/ul Normal 0.0-0.1 [facility] Comment on above: Performed By: #### I NFLUAB #### [facility] [address] [place] [address] Dr. Berta Thakkar Basophils/100 WBC (Bld) 0.2 % Normal 0.2-2.0 [facility] Comment on above: Performed By: #### I NFLUAB #### [facility] [address] [place] [address] Dr. Berta Thakkar EO # 0.0 103/ul Normal 0.0-0.7 [facility] Comment on above: Performed By: #### I NFLUAB #### [facility] [address] [place] [address] Dr. Berta Thakkar Eosinophils/100 WBC (Bld) 1.0 % Normal 0.9-7.0 [facility] Comment on above: Performed By: #### I NFLUAB #### [facility] [address] [place] [address] Dr. Berta Thakkar Erythrocyte distribution width (RBC) [Ratio] 25.6 % Critically high 11.0-15.0 [facility] Comment on above: Performed By: #### I NFLUAB #### [facility] [address] [place] [address] Dr. Berta Thakkar Hematocrit (Bld) [Volume fraction] 37.2 % Critically low 42.0-54.0 [facility] Comment on above: Performed By: #### I NFLUAB #### [facility] [address] [place] [address] Dr. Berta Thakkar Hemoglobin (Bld) [Mass/Vol] 11.6 g/dL Critically low 14.0-18.0 [facility] Comment on above: Performed By: #### I NFLUAB #### [facility] [address] [place] [address] Dr. Berta Thakkar IG # 0.02 10e3/ul Normal 0.00-0.03 [facility] Comment on above: Performed By: #### I NFLUAB #### [facility] [address] [place] [address] Dr. Berta Thakkar IG % 0.5 % Normal 0.0-0.5 [facility] Comment on above: Performed By: #### I NFLUAB #### [facility] [address] [place] [address] Dr. Berta Thakkar LYMPH # 0.5 103/ul Critically low 1.2-3.8 [facility] Comment on above: Performed By: #### I NFLUAB #### [facility] [address] [place] [address] Dr. Berta Thakkar Lymphocytes/100 WBC (Bld) 11.3 % Critically low 20.5-60.0 [facility] Comment on above: Performed By: #### I NFLUAB #### [facility] [address] [place] [address] Dr. Berta Thakkar MANUAL DIFF REQ NO Normal [facility] [place] Comment on above: Performed By: #### I NFLUAB #### [facility] [address] [place] [address] Dr. Berta Thakkar MCH (RBC) [Entitic mass] 27.9 pg Normal 25.9-34.0 [facility] Comment on above: Performed By: #### I NFLUAB #### [facility] [address] [place] [address] Dr. Berta Thakkar MCHC (RBC) [Mass/Vol] 31.2 g/dL Normal 29.9-35.2 [facility] Comment on above: Performed By: #### I NFLUAB #### [facility] [address] [place] [address] Dr. Berta Thakkar MCV (RBC) [Entitic vol] 89.4 fL Normal 80.0-94.0 [facility] Comment on above: Performed By: #### I NFLUAB #### [facility] [address] [place] [address] Dr. Berta Thakkar MONO # 0.3 103/ul Normal 0.3-0.8 [facility] Comment on above: Performed By: #### I NFLUAB #### [facility] [address] [place] [address] Dr. Berta Thakkar Monocytes/100 WBC (Bld) 8.3 % Normal 1.7-12.0 [facility] Comment on above: Performed By: #### I NFLUAB #### [facility] [address] [place] [address] Dr. Berta Thakkar NEUT # 3.2 103/ul Normal 1.4-6.5 [facility] Comment on above: Performed By: #### I NFLUAB #### [facility] [address] [place] [address] Dr. Berta Thakkar Neutrophils/100 WBC (Bld) 78.7 % Critically high 43.0-75.0 [facility] Comment on above: Performed By: #### I NFLUAB #### [facility] [address] [place] [address] Dr. Berta Thakkar Platelet mean volume (Bld) [Entitic vol] 9.2 fL Critically low 9.5-13.5 [facility] Comment on above: Performed By: #### I NFLUAB #### [facility] [address] [place] [address] Dr. Berta Thakkar PLT 129 103/ul Critically low 150-450 [facility] Comment on above: Performed By: #### I NFLUAB #### [facility] [address] [place] [address] Dr. Berta Thakkar RBC 4.16 106/ul Critically low 4.70-6.10 [facility] [place] Comment on above: Performed By: #### I NFLUAB #### [facility] [address] [place] [address] Dr. Berta Thakkar WBC 4.1 103/ul Normal 4.0-11.0 [facility] Comment on above: Performed By: #### I NFLUAB #### [facility] [address] [place] [address] Dr. Berta Thakkar CBC W MANUAL DIFFon 12-13-19 23 ANISOCYTOSIS 3+ Normal [facility] Comment on above: Performed By: #### C BCMAN #### [facility] [address] [place] [address] Dr. Berta Thakkar ATYPICAL LYMPH # Normal [facility] Comment on above: Performed By: #### C BCKOURTNEY #### [facility] [address] [place] [address] Dr. Berta Thakkar ATYPICAL LYMPH % Normal [facility] Comment on above: Performed By: #### C BCMAN #### [facility] [address] [place] [address] Dr. Berta Thakkar BAND # 0.7 103/ul Critically high 0.0-0.3 [facility] [place] Comment on above: Performed By: #### C BCMAN #### [facility] [address] [place] [address] Dr. Berta Thakkar BAND % 19 % Critically high 0-5 [facility] [place] Comment on above: Performed By: #### C BCMAN #### [facility] [address] [place] [address] Dr. Berta Thakkar BASOM # 0.00 103/ul Normal 0.00-0.10 [facility] Comment on above: Performed By: #### C BCMAN #### [facility] [address] [place] [address] Dr. Berta Thakkar BASOM % 0.0 % Critically low 0.2-2.0 [facility] Comment on above: Performed By: #### C BCMAN #### [facility] [address] [address] [address] Berta Thakkar BLAST # Normal [facility] Comment on above: Performed By: #### C BCMAN #### [facility] [address] [place] [address] Dr. Berta Thakkar BLAST % Normal [facility] Comment on above: Performed By: #### C BCMAN #### [facility] [address] [place] [address] Dr. Berta Thakkar CORRECTED WBC Normal 4.0-11.0 [facility] Comment on above: Performed By: #### C BCMAN #### [facility] [address] [place] [address] Dr. Berta Thakakr EOS # 0.04 103/ul Normal 0.00-0.70 [facility] Comment on above: Performed By: #### C BCMAN #### [facility] [address] [place] [address] Dr. Berta Thakkar EOS% 1.0 % Normal 0.9-7.0 [facility] Comment on above: Performed By: #### C BCMAN #### [facility] [address] [place] [address] Dr. Berta Thakkar HCT 28.8 % Critically low 42.0-54.0 [facility] Comment on above: Performed By: #### C BCMAN #### [facility] [address] [place] [address] Dr. Berta Thakkar HGB 9.0 g/dl Critically low 14.0-18.0 [facility] Comment on above: Performed By: #### C BCMAN #### [facility] [address] [place] [address] Dr. Berta Thakkar LYMPHM # 0.16 103/ul Critically low 1.20-3.80 [facility] Comment on above: Performed By: #### C BCMAN #### [facility] [address] [place] [address] Dr. Berta Thakkar LYMPHM% 4.0 % Critically low 20.5-60.0 [facility] Comment on above: Performed By: #### C TEOFILO #### [facility] [address] [place] [address] Dr. Berta Thakkar MCH 27.9 pg Normal 25.9-34.0 [facility] Comment on above: Performed By: #### C TEOFILO #### [facility] [address] [place] [address] Dr. Berta Thakkar MCHC 31.3 g/dl Normal 29.9-35.2 [facility] Comment on above: Performed By: #### C TEOFILO #### [facility] [address] [place] [address] Dr. Berta Thakkar MCV 89.2 fL Normal 80.0-94.0 [facility] Comment on above: Performed By: #### C TEOFILO #### [facility] [address] [place] [address] Dr. Berta Thakkar METAMYELOCYTE # Normal [facility] [place] Comment on above: Performed By: #### C TEOFILO #### [facility] [address] [place] [address] Dr. Berta Thakkar METAMYELOCYTE % Normal [facility] [place] Comment on above: Performed By: #### C TEOFILO #### [facility] [address] [place] [address] Dr. Berta Thakkar MONOM# 0.04 103/ul Critically low 0.30-0.80 [facility] [place] Comment on above: Performed By: #### C TEOFILO #### [facility] [address] [place] [address] Dr. Berta Thakkar MONOM% 1.0 % Critically low 1.7-12.0 [facility] Comment on above: Performed By: #### C TEOFILO #### [facility] [address] [place] [address] Dr. Berta Thakkar MPV 8.9 fL Critically low 9.5-13.5 [facility] Comment on above: Performed By: #### C TEOFILO #### [facility] [address] [place] [address] Dr. Berta Thakkar MYELOCYTE # Normal [facility] Comment on above: Performed By: #### C TEOFILO #### [facility] [address] [address] [address] Berta Thakkar MYELOCYTE % Normal [facility] Comment on above: Performed By: #### C TEOFILO #### [facility] [address] [address] [address] Berta Thakkar NRBC Normal [facility] Comment on above: Performed By: #### C TEOFILO #### [facility] [address] [address] [address] Berta Thakkar PLT 95 103/ul Critically low 150-450 [facility] Comment on above: Performed By: #### C TEOFILO #### [facility] [address] [address] [address] Berta Thakkar RBC 3.23 106/ul Critically low 4.70-6.10 [facility] Comment on above: Performed By: #### C TEOFILO #### [facility] [address] [address] [address] Berta Thakkar RDW 26.3 % Critically high 11.0-15.0 [facility] Comment on above: Performed By: #### C TEOFILO #### [facility] [address] [address] [address] Berta Thakkar SEG # 2.92 103/ul Normal 1.40-6.50 [facility] Comment on above: Performed By: #### C TEOFILO #### [facility] [address] [address] [address] Berta Thakkar SEG % 75.0 % Normal 43.0-75.0 [facility] Comment on above: Performed By: #### C TEOFILO #### [facility] [address] [address] [address] Berta Thakkar TOXIC GRANULATION 3+ Normal [facility] Comment on above: Performed By: #### C TEOFILO #### [facility] [address] [address] [address] Berta Thakkar WBC 3.9 103/ul Critically low 4.0-11.0 [facility] Comment on above: Performed By: #### C BCMAN #### [facility] [address] [address] [address] Berta Thakkar CULTURE BLOODon 12-13-2022 Microscopic examination of blood, culture Culture Observations: NO GROWTH AT 5 DAYS. Normal [facility] Comment on above: Performed By: #### H STROPN #### [facility] [address] [address] [address] Berta Thakkar Microscopic examination of blood, culture Culture Observations: NO GROWTH AT 5 DAYS. Normal [facility] Comment on above: Performed By: #### H STROPN #### [facility] [address] [address] [address] Berta Thakkar Covid-19 PCR ([facility])on 11-27 SARS-CoV-2 (COVID-19) RNA VALENTINO+probe Ql (Unsp spec) Detected Abnormal NOT DETECTED [facility] Comment on above: Result Comment: [...] for this test is supported by the [place] of Health and Human Service's declaration that [...] for this test is supported by the [place] of Health and Human Service's declaration that [...] as: NOT DETECTED On 12/13/2022 00:49 By [facility] Performed By: #### C [facility] #### [facility] [address] [address] [address] Berta Thakkar ECHO LIMITED STUDYon 023 ECHO LIMITED STUDY Patient: CINDY RM Exam Date: 12/13/2022 : 1950 Gender:M Ordering : DR ABILIO KAY . Admission #: [id number] Family : Order #: [id number] CLICK HERE TO VIEW EXAM ECHOCARDIOGRAM REPORT [...] M.D. on 12/15/2022 at 10:13 Normal [facility] ER URINE PROFILEon 3 Bilirubin Ql (U) Negative Normal NEGATIVE [facility] Comment on above: Performed By: #### I NFLUAB #### [facility] [address] [place] [address] Dr. Berta Thakkar Clarity (U) CLEAR Normal CLEAR [facility] Comment on above: Performed By: #### I NFLUAB #### [facility] [address] [place] [address] Dr. Berta Thakkar Color (U) LT. YELLOW Normal YELLOW [facility] Comment on above: Performed By: #### I NFLUAB #### [facility] [address] [place] [address] Dr. Berta Thakkar ERUSANDRA A micrscopic examina tion will be performed if indicated. Normal [facility] Comment on above: Performed By: #### I NFLUAB #### [facility] [address] [place] [address] Dr. Berta Thakkar Glucose Ql (U) 250 mg/dl Abnormal NEGATIVE [facility] Comment on above: Performed By: #### I NFLUAB #### [facility] [address] [place] [address] Dr. Berta Thakkar Hemoglobin Ql (U) Negative Normal NEGATIVE [facility] Comment on above: Performed By: #### I NFLUAB #### [facility] [address] [place] [address] Dr. Berta Thakkar Ketones Ql (U) TRACE Abnormal NEGATIVE [facility] Comment on above: Performed By: #### I NFLUAB #### [facility] [address] [place] [address] Dr. Berta Thakkar LEUKOCYTES Negative Normal NEGATIVE [facility] Comment on above: Performed By: #### I NFLUAB #### [facility] [address] [place] [address] Dr. Berta Thakkar Nitrite Ql (U) Negative Normal NEGATIVE [facility] Comment on above: Performed By: #### I NFLUAB #### [facility] [address] [place] [address] Dr. Berta Thakkar pH (U) 6.0 [pH] Normal 5-9 [facility] Comment on above: Performed By: #### I NFLUAB #### [facility] [address] [place] [address] Dr. Berta Thakkar SPEC GRAVITY 1.025 Normal 1.005-<=1. 025 [facility] Comment on above: Performed By: #### I NFLUAB #### [facility] [address] [place] [address] Dr. Berta Thakkar UA PROTEIN TRACE Normal NEGATIVE/ TRACE [facility] Comment on above: Performed By: #### I NFLUAB #### [facility] [address] [place] [address] Dr. Berta Thakkar UR MICRO IND NOT INDICATED Normal [facility] Comment on above: Performed By: #### I NFLUAB #### [facility] [address] [place] [address] Dr. Berta Thakkar Urobilinogen Qn (U) 0.2 {Roro'U}/dL Normal 0.2 - 1. 0 [facility] Comment on above: Performed By: #### I NFLUAB #### [facility] [address] [place] [address] Dr. Berta Thakkar INFLUENZA A AND B AGon 12-13 INFLUANEGH SEE BELOW Normal [facility] Comment on above: Result Comment: Nega tive for Flu A protein angiten. Infection due to Flu A cannot be ruled out. Flu A angiten in the sample may be below the detection limit of the test. Performed By: #### I NFLUAB #### [facility] [address] [place] [address] Dr. Berta Thakkar [facility] SEE BELOW [facility] Comment on above: Result Comment: Nega tive for Flu B protein antigen. Infection due to Flu B cannot be ruled out. Flu B antigen in the sample may be below the detection limit of the test. Performed By: #### I NFLUAB #### [facility] [address] [place] [address] Dr. Berta Thakkar INFLUENZA A AG Negative Normal NEGATIVE SEE COMMENT [facility] Comment on above: Performed By: #### I NFLUAB #### [facility] [address] [place] [address] Dr. Berta Thakkar INFLUENZA B AG Negative Normal NEGATIVE SEE COMMENT [facility] Comment on above: Performed By: #### I NFLUAB #### [facility] [address] [place] [address] Dr. Berta Thakkar LACTATE/LACTIC ACIDon 2022 Lactate [Moles/Vol] 1.6 mmol/L Normal 0.4-1.9 [facility] Comment on above: Performed By: #### I NFLUAB #### [facility] [address] [place] [address] Dr. Berta Thakkar Lactate [Moles/Vol] 1.3 mmol/L Normal 0.4-1.9 [facility] Comment on above: Performed By: #### I NFLUAB #### [facility] [address] [place] [address] Dr. Berta Thakkar POINT OF CARE GLUCOSEon 11-27 Glucose [Mass/Vol] 217 mg/dL Critically high 74-106 [facility] Comment on above: Performed By: #### P T, PTT #### [facility] [address] [place] [address] Dr. Berta Thakkar PROF CHEM 8 (BAS METB)on Anion gap [Moles/Vol] 12.7 mmol/L Normal [facility] Comment on above: Performed By: #### H STROPN #### [facility] [address] [address] [address] Berta Thakkar Calcium [Mass/Vol] 9.3 mg/dL Normal 8.5-10.1 [facility] Comment on above: Performed By: #### H STROPN #### [facility] [address] [address] [address] Berta Thakkar Chloride [Moles/Vol] 98 mmol/L Normal 98-107 [facility] Comment on above: Performed By: #### H STROPN #### [facility] [address] [address] [address] Berta Thakkar CO2 [Moles/Vol] 30.4 mmol/L Normal 21.0-32.0 [facility] Comment on above: Performed By: #### H STROPN #### [facility] [address] [address] [address] Berta Thakkar Creatinine [Mass/Vol] 1.27 mg/dL Normal 0.70-1.30 [facility] Comment on above: Performed By: #### H STROPN #### [facility] [address] [address] [address] Berta Thakkar EGFR-AF DOMINICAN >60 Normal >=60 [facility] Comment on above: Performed By: #### H STROPN #### [facility] [address] [address] [address] Berta Thakkar EGFR-NON AF DOMINICAN 56 mL/min/1.73m2 Critically low >=60 [facility] Comment on above: Performed By: #### H STROPN #### [facility] [address] [address] [address] Berta Thakkar Glucose [Mass/Vol] 185 mg/dL Critically high 74-106 [facility] Comment on above: Performed By: #### H STROPN #### [facility] [address] [address] [address] Berta Thakkar Potassium [Moles/Vol] 4.1 mmol/L Normal 3.5-5.1 [facility] Comment on above: Performed By: #### H STROPN #### [facility] [address] [place] [address] Dr. Berta Thakkar Sodium [Moles/Vol] 137 mmol/L Normal 136-145 [facility] Comment on above: Performed By: #### H STROPN #### [facility] [address] [place] [address] Dr. Berta Thakkar Urea nitrogen [Mass/Vol] 27.0 mg/dL Critically high 7.0-18.0 [facility] Comment on above: Performed By: #### H STROPN #### [facility] [address] [place] [address] Dr. Berta Thakkar Urea nitrogen/Creatinine [Mass ratio] 21.3 mg/mg Normal [facility] Comment on above: Performed By: #### H STROPN #### [facility] [address] [place] [address] Dr. Berta Thakkar PROTIMEon 12-13-2022 INR Coag (PPP) [Relative time] 1.10 {INR} Normal [facility] Comment on above: Performed By: #### P T, PTT #### [facility] [address] [place] [address] Dr. Berta Thakkar INR GUIDELINES SEE BELOW Normal [facility] Comment on above: Result Comment: ANTHONY RED INR: 2.0 - 3.0 CONDITIONS NOT LISTED BELOW 2.5 - 3.5 FOR PROSTHETIC HEART VALVE REPLACEMENT 2.5 - 3.5 RECURRENT THROMBOSIS Performed By: #### P T, PTT #### [facility] [address] [place] [address] Dr. Berta Thakkar PT Coag (PPP) [Time] 11.6 s Normal 9.0-11.6 [facility] Comment on above: Performed By: #### P T, PTT #### [facility] [address] [place] [address] Dr. Berta Thakkar PTTon 12-13-2022 aPTT Coag (Bld) [Time] 35.0 s Normal 22.3-36.2 [facility] Comment on above: Performed By: #### P T, PTT #### [facility] [address] [place] [address] Dr. Berta Thakkar TROPONIN, HIGH SENSITIVITYon 12-13-2022 HSTROP 1727.1 pg/mL Critically high 4.0-76.1 [facility] Comment on above: Result Comment: CUT- OFF POINTS HAVE BEEN ESTABLISHED BASED ON THE FOURTH UNIVERSAL DEFINITIONS OF MYOCARDIAL INFARCTION. THE UPPER REFERENCE LIMIT (URL) OF TROPONIN, DEFINED THE 99TH PERCENTILE OF cTnI DISTRIBUTION IN A REFERENCE POPULATION, HAS BEEN CONFIRMED THE DECISION THRESHOLD FOR [place] DIAGNOSIS. Performed By: #### H STROPN #### [facility] [address] [address] [address] Berta Thakkar HSTROP 2303.4 pg/mL Critically high 4.0-76.1 [facility] Comment on above: Result Comment: CUT- OFF POINTS HAVE BEEN ESTABLISHED BASED ON THE FOURTH UNIVERSAL DEFINITIONS OF MYOCARDIAL INFARCTION. THE UPPER REFERENCE LIMIT (URL) OF TROPONIN, DEFINED THE 99TH PERCENTILE OF cTnI DISTRIBUTION IN A REFERENCE POPULATION, HAS BEEN CONFIRMED THE DECISION THRESHOLD FOR [place] DIAGNOSIS. Performed By: #### H STROPN #### [facility] [address] [address] [address] Berta Thakkar HSTROP 2122.6 pg/mL Critically high 4.0-76.1 [facility] Comment on above: Result Comment: CUT- OFF POINTS HAVE BEEN ESTABLISHED BASED ON THE FOURTH UNIVERSAL DEFINITIONS OF MYOCARDIAL INFARCTION. THE UPPER REFERENCE LIMIT (URL) OF TROPONIN, DEFINED THE 99TH PERCENTILE OF cTnI DISTRIBUTION IN A REFERENCE POPULATION, HAS BEEN CONFIRMED THE DECISION THRESHOLD FOR MT DIAGNOSIS. Performed By: #### H STROPN #### [facility] [address] [address] [address] Berta Thakkar HSTROP 1065.9 pg/mL Critically high 4.0-76.1 [facility] Comment on above: Result Comment: CUT- OFF POINTS HAVE BEEN ESTABLISHED BASED ON THE FOURTH UNIVERSAL DEFINITIONS OF MYOCARDIAL INFARCTION. THE UPPER REFERENCE LIMIT (URL) OF TROPONIN, DEFINED THE 99TH PERCENTILE OF cTnI DISTRIBUTION IN A REFERENCE POPULATION, HAS BEEN CONFIRMED THE DECISION THRESHOLD FOR MT DIAGNOSIS. Performed By: #### P T, PTT #### [facility] [address] [address] [address] 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 COMPARISON: September 21, 2021 ACCESSION NUMBER(S): [id number] ORDERING CLINICIAN: ANDREA HAWTHORNE FINDINGS: Possible new [...] Electronically signed by: BERYL ANTUNEZ MD Normal [facility] Established Visit (Otolaryng ology)on 09-20-2022 Established Visit [...] year Pain Scale0/10 Height5 ft 7 in Hubivf922 lb 9 oz BMI Sboxqbbsgq08.8 kg/m2 BSA Calculated1.77 Physical Exam On examination the oral cavity and oropharynx are within normal limits. He does have some surgical changes of the anterior tongue on the (more content not included)... Normal [employer] Radiologyon 09-20-2022 XR Chest 2 Views Please click on the link to view the study images Normal [employer] Work Phone: TSHon 09-20-2022 TSH Qn 1.28 m[IU]/L Normal 0.44 - 3.98 [facility] Comment on above: Result Comment: TSH testing is performed using different testing methodology at [facility] than at other [facility]. Direct result comparisons should only be made within the same method. Performed By: #### T SH2 #### [address] [id number] TSH - Thyroid Stimulating Ho yessica Serumon 09-20-2022 TSH Qn 1.28 m[IU]/L See Below [employer] Work Phone: Comment on above: Reference Range: 0.4 4 - 3.98 TSH testing is performed using different testing methodology at [facility] than at other [facility]. Direct result comparisons should only be made within the same method. Tobacco Screening.on 022 Adult depression screening assessment No [employer] Work Phone: Fall risk assessment b) One or more fall s in the last year [employer] Work Phone: Tobacco use status [facility] b) No M [employer] Work Phone: H PYLORI TISSUEon 02-04-2022 H PYL TISSUE, UREASE Negative Normal NEGATIVE [facility] Comment on above: Performed By: #### H PYLT #### [facility] [address] [address] [address] Berta Thakkar POINT OF CARE GLUCOSEon Glucose [Mass/Vol] 149 mg/dL Critically high 74-106 T [facility] Comment on above: Performed By: #### I NFLUAB #### [facility] [address] [address] [address] Berta Thakkar Complete Blood Counton 12-21 Erythrocyte distribution width (RBC) [Ratio] 18.2 % High 11.0-15.0 [facility] Comment on above: Performed By: #### C BC #### [facility] [address] [place], [place] [id number] Hematocrit (Bld) [Volume fraction] 31.4 % Low 38.5-50.0 [place] Specialist Comment on above: Performed By: #### C BC #### [facility] [address] [place], [place] [id number] Hemoglobin (Bld) [Mass/Vol] 9.5 g/dL Low 13.0-17.1 [facility] Comment on above: Performed By: #### C BC #### [facility] [address] [place], [place] [id number] MCH (RBC) [Entitic mass] 26.3 pg Low 27.0-33.0 [facility] Comment on above: Performed By: #### C BC #### [facility] [address] [place], [place] [id number] MCHC (RBC) [Mass/Vol] 30.3 g/dL Low 32.0-36.0 [facility] Comment on above: Performed By: #### C BC #### [facility] [address] [place], [place] [id number] MCV (RBC) [Entitic vol] 87 fL Normal 80-100 [facility] Comment on above: Performed By: #### C BC #### [facility] [address] [place], [place] [id number] Platelet mean volume (Bld) [Entitic vol] 8.50 fL Normal 7.50-12.50 [facility] Manager Graphic Comment on above: Performed By: #### C BC #### [facility] [address] [place], [place] [id number] Platelets (Bld) [#/Vol] 180 10*3/uL Normal 140-400 [facility] Manager Graphic Comment on above: Performed By: #### C BC #### [facility] [address] [place], [place] [id number] RBC (Bld) [#/Vol] 3.61 10*6/uL Low 4.20-5.80 [facility] Specialist Comment on above: Performed By: #### C BC #### [facility] [address] [place], [place] [id number] RDW-SD 57.6 fL High 37.0-50.0 [facility] Manager Graphic Comment on above: Performed By: #### C BC #### [facility] [address] [place], [place] [id number] WBC (Bld) [#/Vol] 4.0 10*3/uL Normal 3.8-11.0 [facility] Comment on above: Performed By: #### C BC #### [facility] [address] [place], [place] [id number] Radiologyon 09-21-2021 XR Chest 2 Views [facility] Work Phone: XR Chest 2 Views Please click on the link to view the study images Normal MG-Otolaryng oly-[facility] Work Phone: TSH - Thyroid Stimulating Ho rmone, Serumon 09-21-2021 TSH Qn 3.49 m[IU]/L See Below MG-[facility]tolaryng [facility] Work Phone: Comment on above: Reference Range: 0.4 4 - 3.98 TSH testing is performed using different testing methodology at [facility] than at other [facility]. Direct result comparisons should only be made within the same method. Tobacco Screening.on 021 Fall risk assessment b) One or more fall s in the last year MG-Otolaryng ology-[employer] Work Phone: Tobacco use status [facility] b) No M Wilfrido-Sandip [employer] LaterJake [employer] Work Phone: Tobacco Screening.on 021 Fall risk assessment a) No falls within the last year -[employer] MetrekarejerryBill Me LaterJake seals Work Phone: Tobacco use status [facility] b) No M Wilfrido-Sandip seals Work Phone: Estimated glomerular filtrat ion rate (GFR) non- Americanon 05-18-2021 GFR/1.73 sq M.predicted among non-blacks MDRD (S/P/Bld) [Vol rate/Area] 52 mL/Min [facility] Laboratory - Hematology and Cell countson 05-18-2021 Nucleated RBC/100 WBC (Bld) [Ratio] 0.2 % 0-0.5 [facility] No Panel Informationon 05-18 Estimated GFR () > 60 mL/Min [facility] Comment on above: GFR estimated refere nce range: According to KDOQI guidelines, <60 ml/min/1.73m2 is sufficient to diagnose a patient with chronic kidney disease. Laboratory - Hematology and Cell countson 05-19-2020 WBC (Bld) [#/Vol] 3.4 10*3/uL Low 4.5-11.0 [facility] Otheron 07-23-2019 XR Chest 2 views Interpreted by: JEAN JAMES07/24/19 07:51MRN: [id number] Name: ROXANN RM JR STUDY:TH CHEST 2 [...] by: PIPE JAMES 07/24/19 07:51 Normal -[employer]tol[employer] Work Phone: XR Chest 2 views Please click on the link to view the study images Normal -Otolaryn [employer] Work Phone: TSH - Thyroid Stimulating Ho yessica, Yoelon 07-23-2019 TSH Qn 3.90 {mIU/L} See Below [employer]tolaryn [employer] Work Phone: Comment on above: Reference Range: 0.4 4 - 3.98 TSH testing is performed using different testing methodology at [facility] than at other [facility]. Direct result comparisons should only be made within the same method.. Patients receiving more than 5 mg/day of biotin may have interference in test results. A sample should be taken no sooner than eight hours after previous dose. Contact [phone] for additional information. Vital Signs Date Time Vital Sign Value Performing Clinician Facility 06-05-2024 13:37-0400 Body temperature 98.3 [degF] MD Neo Singh Work Phone: [facility] 06-05-2024 13:37-0400 Body weight 55.33 kg MD Neo Singh Work Phone: [facility] 06-05-2024 13:37-0400 Diastolic blood pressure 73 mm[Hg] MD Neo Singh Work Phone: [facility] 06-05-2024 13:37-0400 Heart rate 71 /min MD Neo Singh Work Phone: [facility] 06-05-2024 13:37-0400 Respiratory rate 20 /min MD Neo Singh Work Phone: [facility] 06-05-2024 13:37-0400 SaO2% (BldA) [Mass fraction] 95 % MD Neo Singh Work Phone: [facility] 06-05-2024 13:37-0400 Systolic blood pressure 109 mm[Hg] MD Neo Singh Work Phone: [facility] 09-19-2023 16:16-0400 Body height 170.2 cm Apollo Lopes MD Work Phone: [facility] 09-19-2023 16:16-0400 Body mass index (BMI) [Ratio] 22.24 kg/m2 Apollo Lopes MD Work Phone: [facility] 09-19-2023 16:16-0400 Body weight 64.41 kg Apollo Lopes MD Work Phone: [facility] 06-21-2023 14:46-0400 Body height 170.99 cm MD Neo Singh Work Phone: [facility] 06-21-2023 14:46-0400 Body temperature 98.2 [degF] MD Neo Singh Work Phone: [facility] 06-21-2023 14:46-0400 Diastolic blood pressure 78 mm[Hg] MD Neo Singh Work Phone: [facility] 06-21-2023 14:46-0400 Heart rate 79 /min MD Neo Singh Work Phone: [facility] 06-21-2023 14:46-0400 Respiratory rate 20 /min MD Neo Singh Work Phone: [facility] 06-21-2023 14:46-0400 SaO2% (BldA) [Mass fraction] 96 % MD Neo Singh Work Phone: [facility] 06-21-2023 14:46-0400 Systolic blood pressure 137 mm[Hg] MD Neo Singh Work Phone: [facility] 12-28-2022 21:00-0500 Diastolic blood pressure 67 mm[Hg] [facility] [employer] 12-28-2022 21:00-0500 Heart rate 68 /min [facility] [employer] 12-28-2022 21:00-0500 Respiratory rate 18 /min [facility] [employer] 12-28-2022 21:00-0500 SaO2% (BldA) [Mass fraction] 76 % [facility] 21:00-0500 Systolic blood pressure 112 mm[Hg] Et3 [facility] SOLAR 09-20-2022 15:19-0400 0 1 Neo Singh Work Phone: WS-Sqhfoetflkyphy-Eu [address] Work Phone: Comment on above: [employer] 09-20-2022 15:18-0400 Body height 170.18 cm Neo Gaylea Work Phone: MU-Mhdvghxcsxbwjv-Pi [address] Work Phone: 09-20-2022 15:18-0400 Body mass index (BMI) [Ratio] 22.8 kg/m2 Neo Gaylea Work Phone: JS-Filscuvmdxielf-Jt [address] Work Phone: 09-20-2022 15:18-0400 Body surface area Derived from formula 1.77 m2 Neo Gaylea Work Phone: QW-Mdkulkikiressl-Du [address] Work Phone: 09-20-2022 15:18-0400 Body weight 66.03 kg Neo Gaylea Work Phone: OX-Gguqehepasqzep-Ks [address] Work Phone: 03-31-2022 10:30-0400 Body height 170.18 cm Luis Moe Other [employer] Other 03-31-2022 10:30-0400 Body mass index (BMI) [Ratio] 22.71 kg/m2 Luis Moe Other [employer] Other 03-31-2022 10:30-0400 Body weight 65.77 kg Luis Moe Other [employer] Other 09-21-2021 13:36-0400 Body height 170.18 cm Neo Gonzalez Samantha Work Phone: HR-Cnaxzeoonhofgx-Is [address] Work Phone: 09-21-2021 13:36-0400 Body mass index (BMI) [Ratio] 23.95 kg/m2 Neo Gonzalez Samantha Work Phone: JE-Lsfefamqbgzqvi-Un [address] Work Phone: 09-21-2021 13:36-0400 Body surface area Derived from formula 1.8 m2 Ludmilaen Carlos Whittier Work Phone: VC-Smjztzlqssccbg-Eu [address] Work Phone: 09-21-2021 13:36-0400 Body temperature 96.8 [degF] Rugmurray Gonzalez Samantha Work Phone: YH-Kuivusuorxfomp-Ah [address] Work Phone: 09-21-2021 13:36-0400 Body weight 69.36 kg Rugmurray Gonzalez Whittier Work Phone: AX-Jgmaewokwzxshl-Ne [address] Work Phone: 07-06-2021 15:59-0400 Body height 170.18 cm Rugmurray Gonzalez Samantha Work Phone: QJ-Soknnvfbyuqgum-Oy [address] Work Phone: 07-06-2021 15:59-0400 Body mass index (BMI) [Ratio] 23.81 kg/m2 Neo Singh Work Phone: DQ-Ekimqfbdormfve-Au [address] Work Phone: 07-06-2021 15:59-0400 Body surface area Derived from formula 1.8 m2 Neo Singh Work Phone: UK-Mzlwnvepgxyckm-Gj [address] Work Phone: 07-06-2021 15:59-0400 Body temperature 97.3 [degF] Neo Singh Work Phone: BH-Zkmrffzzlhvbst-Qc [address] Work Phone: 07-06-2021 15:59-0400 Body weight 68.95 kg Neo Singh Work Phone: JC-Wtcgbpblsnogjj-Tf [address] Work Phone: Encounters Encounter Date Encounter Type Care Provider Facility Start: 06-10-2024 ambulatory Neo Singh Facility:[facility] Start: 06-10-2024 Encounter for other specified special examinations Mhlubna Escobar [facility] Start: 06-05-2024 End: 06-05-2024 ambulatory MD Neo Singh Work Phone: [facility] Work Phone: Start: 06-05-2024 End: 06-05-2024 Patient encounter procedure MD Neo Singh Work Phone: [facility] Ambulatory Work Phone: Start: 06-05-2024 Registered Recurring MD Neo Singh Work Phone: [facility] Acute Work Phone: Start: 05-29-2024 End: 05-29-2024 ambulatory MER CHEN Not Available Start: 05-21-2024 End: 05-21-2024 ambulatory CLAIRE LYNCH Not Available Start: 05-10-2024 End: 05-10-2024 ambulatory MD Neo Singh Work Phone: [facility] Work Phone: Start: 05-10-2024 End: 05-10-2024 Departed Referred MD Neo Singh Work Phone: [facility]-LAB Path [facility] Start: 04-30-2024 End: 04-30-2024 ambulatory NEO SINGH Not Available Start: 01-29-2024 End: 01-29-2024 ambulatory NEO SINGH Not Available Start: 10-30-2023 End: 10-30-2023 ambulatory NEO SINGH Not Available Start: 09-19-2023 End: 09-19-2023 Office outpatient visit 15 minutes Apollo Lopes MD Work Phone: 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); Acquired hypothyroidism; Oropharyngeal dysphagia Start: 09-19-2023 End: 09-19-2023 ambulatory [facility] Ambulatory Start: 01-16-2023 AUDIT Neo Singh Work Phone: IR-Freactreocziys-Jznmj [address] Work Phone: Start: 12-28-2022 End: 01-22-2023 ambulatory [facility] Start: 12-28-2022 End: 12-28-2022 Emergency department patient visit [facility] Triage, Treat and Transport Comment on above: Arrived Start: 12-26-2022 End: 12-27-[address] NEO SINGH Facility:[facility]1 Start: 12-20-2022 Rx Renewal Neo Singh Work Phone: ZO-Tojdzsdhovjylw-Dnjyf ake Work Phone: Start: 12-13-2022 End: 12-15-2022 Evaluation and management of inpatient DR ABILIO KAY Facility:[facility]1 Start: 09-30-2022 End: 09-30-2022 ambulatory MD Neo Singh Work Phone: [facility] Work Phone: Start: 09-30-2022 End: 09-30-2022 Patient encounter procedure MD Neo Singh Work Phone: [facility]-CT [address] Start: 09-21-2022 Chart Update Neo Singh Work Phone: AH-Fcjrjaorjadsus-Gntze donna Work Phone: Start: 09-20-2022 ambulatory MD ANDREA Goodman acility:[id number] Start: 09-20-2022 Office outpatient vi sit 15 minutes Neo Singh Work Phone: PD-Lgusxescmcfvgd-Rllpu donna Work Phone: Start: 09-20-[address] APOLLO LOPES Fa cility:[id number] Start: 03-31-2022 End: 03-31-2022 ambulatory Luis Moe Other [employer] Other Start: 03-31-2022 Office outpatient vi sit 15 minutes Luis Moe [facility] Vascular Surgery Start: 12-31-2021 End: 12-31-[address] DONYA PAREDES Facility:H1 Start: 12-27-2021 Rx Renewal Neo Singh Work Phone: VX-Ixoaiuzaqjsxrb-Qiyqp [address] Work Phone: Start: 09-23-2021 Chart Update Neo Singh Work Phone: MF-Dkcunpfkzqiwnv-Gttbl donna Work Phone: Start: 09-21-2021 Office outpatient vi sit 15 minutes Neo Singh Work Phone: PV-Uxlbawhcsffvyj-Ymuey donna Work Phone: Start: 08-16-2021 Rx Renewal Neo Singh Work Phone: VV-Wkrzluhcxiciug-Gecnl ban Work Phone: Start: 07-06-2021 Office outpatient vi sit 15 minutes Neo Singh Work Phone: EM-Fhtceovrwyubfr-Efqdw donna Work Phone: Start: 08-04-2020 Patient encounter procedure Apollo Lavertu UI-Phmmtbseliguvg-Xrdkj ban Work Phone: Start: 07-23-2019 Patient encounter procedure Apollo Lavertu IG-Pcasxpichnlnhy-Rygtv donna Work Phone: Start: 01-22-2019 Patient encounter procedure Apollo Lavertu WH-Xkulqjxkxlkgft-Zhhay donna Work Phone: Start: 08-21-2018 Patient encounter procedure Apollo Lavertu KV-Gcwslguussbdld-Eipwh donna Work Phone: Start: 08-07-2018 Patient encounter procedure Apollo Lavertu DN-Smvijnlxwpcfnq-Vpgfk donna Work Phone: Start: 07-10-2018 Patient encounter procedure Apollo Lavertu AC-Olvblmfzfxkadx-Yeipn donna Work Phone: Start: 01-09-2018 Patient encounter procedure Apollo Lavertu BE-Pnemguvorwyqmq-Fmaol donna Work Phone: Procedures Date Procedure Procedure Detail Performing Clinician Start: 06-10-2024 Carcinoembryonic antigen cea Issa Salas Comment on above: Result Comment: Cody ha tumor marker results determined by assays using different manufacturers or methods may not be comparable. [facility] wafer fab operator and method: PARISA UNICEL DXI, 2 SITE IMMUNOENZYMATIC ?SANDWICH? ASSAY. PERFORMED BY: [address] [place] [address] PATHOLOGIST SPOT WELDER PABLO ZHAO M.D. Performed By: #### C BC, CMP, CEA ####[facility] [id number] [facility]#### AFPTM, CA19 ####[facility] , Start: 06-21-2023 Screening [...] procedure 09/17/2024 4:30 PM EDT Office Visit [facility] [address] [place] [address] [place] [address] [place] [address] [facility] Start: 06-20-2024 Thyroid stimulating hormone measurement TSH Level [facility] Start: 06-05-2024 Patient referral [facility] Work Phone: Start: 09-19-2023 FUV, Provider: Apollo Lopes, Status: Pen, Time: 4:15 PM FUV, Provider: Apollo Lopes, Status: Pen, Time: 4:15 PM MA-Dxormqtchkyuhc-[place]tuc [place] Work Phone: Start: 07-28-2023 Influenza vaccination Influenza Vaccine (#1) [facility] Start: 09-20-2022 FUV, Provider: Apollo Lopes, Status: Pen, Time: 2:40 PM FUV, Provider: Apollo Lopes, Status: Pen, Time: 2:40 PM CZ-Ppuvuuagmetkdk-Syga [place] Work Phone: Start: 08-27-2022 Influenza vaccination Influenza Vaccine (#1) [facility] Start: 12-23-2021 COVID-19 Vaccine (4 - Pfizer series) COVID-19 Vaccine (4 - Pfizer series) [facility] Start: 09-21-2021 FUV, Provider: Apollo Lopes, Status: Pen, Time: 1:40 PM FUV, Provider: Apollo Lopes, Status: Pen, Time: 1:40 PM QU-Evasouqeobdnnx-Gbvj lake Work Phone: Start: 05-04-2021 Pneumococcal Vaccine: 65+ Years (2 - PPSV23 or PCV20) Pneumococcal Vaccine: 65+ Years (2 - PPSV23 or PCV20) [facility] Start: 02-10-2017 Pneumococcal vaccination Pneumococcal Vaccine(s) (65+ yrs) (1 - PCV) [facility] Start: 02-10-2002 Measurement of occult blood in single stool specimen FIT [facility] Start: 02-10-2002 Screening for malignant neoplasm of colon CRC Screening [facility] Start: 02-10-2002 Shingles (RZV) Vaccine (1 of 2) Shingles (RZV) Vaccine (1 of 2) [facility] Start: 02-10-2002 Zoster Vaccines (1 of 2) Zoster Vaccines (1 of 2) [facility] Start: 02-10-1987 Lipid panel Cholesterol [facility] Start: 02-10-1974 DTaP/Tdap/Td Vaccines (1 - Tdap) DTaP/Tdap/Td Vaccines (1 - Tdap) [facility] Start: 02-10-1970 Diabetes mellitus screening Diabetes Screening [facility] Start: 02-10-1970 Hepatitis C screening [facility] Start: 02-10-1970 Tetanus + diphtheria + acellular pertussis vaccine (product) Tdap Booster [facility] Start: 1950 COVID-19 Vaccine (#1) COVID-19 Vaccine (#1) [facility] Start: 1950 Lipid panel Lipid Panel [facility] Start: 1950 Medicare Annual Wellness Visit Medicare Annual Wellness Visit (AWV) [facility] Start: 1950 Screening for malignant neoplasm of colon [facility] Qndso-2-egiqzbrrhdr. tumo r marker [Mass/volume] in Serum or Plasma [facility] Cancer Ag 19-9 [Units/volume] in Serum or Plasma [facility] Comprehensive metabo lic 1999 panel - Serum or Plasma [facility] Comprehensive metabo lic 1999 panel - Serum or Plasma [facility] CT guided biopsy [facility] Patient referral [facility] Work Phone: [facility] Immunizations Immunization Date Immunization Notes Care Provider Fa cility 05-04-2020 pneumococcal conjuga te vaccine, 13 valent Apollo Lopes MD Work Phone: [facility] Work Phone: 12-16-2017 Seasonal trivalent influenza vaccine, adjuvanted, preservative free Apollo Lopes MD Work Phone: [facility] Work Phone: 12-16-2017 influenza virus vaccine, unspecified formulation Apollo Lopes MD Work Phone: [facility] Work Phone: Payers Date Payer Category Payer Self-pay [id number] 2022 Unknown [id number] 2019 Medicare HU[employer]NA MEDICARE [employer] GOLD CHOICE [id number] 2019-Present [address] [address] [place] [address] [id number] 1959 Medicare [id number] 1952 Unknown [id number] 2.16.840.1.372438.3.579.2 .356 1952 Unknown [id number] 2.16.840.1.972232.3.579.2 .356 1952 Unknown [id number] 2.16.840.1.727510.3.579.2 .593 1952 Unknown [id number] 2.16.840.1.629305.3.579.2 .593 1952 Unknown [id number] 2.16.840.1.211820.3.579.2 .593 1952 Unknown [id number] 2.16.840.1.621233.3.579.2 .732 1952 Unknown [id number] 2.16.840.1.316714.3.579.2 .1244 1952 Unknown [id number] 2.16.840.1.789281.3.579.2 .1259 1952 Unknown [id number] 2.16.840.1.908104.3.579.2 .1259 1952 Unknown [id number] 2.16.840.1.828580.3.579.2 .1259 1952 Unknown [id number] 2.16.840.1.019026.3.579.2 .1259 1952 Unknown [id number] 2.16.840.1.341536.3.579.2 .1259 1952 Unknown [id number] 2.16.840.1.913157.3.579.2 .1259 Medicare Medicare [id number] Medicare Medicare [id number] Private Health Insurance [facility] [id number] Unknown Unknown [id number] 2.16.840.1.319880.3.579.2 .531 Unknown [id number] 2.16.840.1.372967.3.579.2 .531 Social History Date Type Detail Facility Start: 09-19-2023 Drinks beer [facility]inks [facility]: Start: 09-19-2023 Sex Assigned At [employer] Other Start: 06-16-2022 End: 06-16-2022 Tobacco smoking status WIIS Never smoked tobacco (finding) [facility] Start: 1950 Sex Assigned At Male [facility] Tobacco smoking status [facility] Tobacco smoking consumption unknown [facility] Start: 1950 Sex Assigned At Not on file [facility] Start: 09-19-2023 Tobacco use and exposure Smokeless tobacco non-user [facility] Work Phone: Start: 09-09-2023 End: 09-19-2023 Exposure to SARS-CoV-2 (event) Not sure [facility] NEGATED: Highlighted row - - QD-Lzerxeybpwzbgk-Gk [facility] Work Phone: Functional Status Date Assessment Result Facility NEGATED: Highlighted row Functional performance Functional status health issues are not documented Disease QA-Ovlkkjrmfnktqc-Q [place] Work Phone: Mental Status Date Assessment Result Facility NEGATED: Highlighted row Cognitive function [Interpretation] Cognitive status health issues are not documented Disease QU-Rinncmpsnoecdw-C [place] Work Phone: Clinical Notes 06-02-2014 to [...] any mucosal lesions. documented in this encounter [facility] Work Phone: 12-28-2022 History of Present illness Narrative Images from the original note were not included. EMERGENCY TRIAGE, TREAT AND TRANSPORT (ET3) DOCUMENTATION OF TELEHEALTH VISIT Date / Time: 12/28/20222099 Name: Roxann Rm : 1950 SSN: (Not on file) EMS Agency: [facility] [x] Verbal consent obtained [] [...] Em Staples MD documented in this encounter [facility] 03-31-2022 Evaluation note Encounter Date Diagnosis Assessment [...] any further surveillance of his carotid arteries. [facility] Other 02-04-2022 NoteOPERATIVE NOTE PREOPERATIVE DIAGNOSIS: Anemia. POSTOPERATIVE DIAGNOSIS: Gastritis, sigmoid diverticulosis. PROCEDURE PERFORMED: EGD with biopsy x1 from the antrum of the stomach, colonoscopy. SURGEON: Donya Paredes M.D. ANESTHESIA: Monitored anesthesia care. DISPOSITION: To [facility] in fair condition. PROCEDURE: Patient was brought [...] have a repeat colonoscopy in five years. [facility] Signed and Approved by: DR DONYA PAREDES . 01/08/2022 14:40:00[facility]02-04-2022 NoteOPERATIVE NOTE PREOPERATIVE DIAGNOSIS: Anemia. POSTOPERATIVE DIAGNOSIS: Gastritis, sigmoid diverticulosis. PROCEDURE PERFORMED: EGD with biopsy x1 from the antrum of the stomach, colonoscopy. SURGEON: Donya Paredes M.D. ANESTHESIA: Monitored anesthesia care. DISPOSITION: To [facility] in [facility] condition. PROCEDURE: Patient was brought [...] have a repeat colonoscopy in five years.[id number] History of Present illness NarrativeThileni patient had [...] morning. He does have some slight throat soreness.SW-Cspojunqfptblg-Frzznxqv Work Phone: [phone] 773-474407-07-2014 History of Present illness NarrativeThis patient had [...] was also in August 2020 and was negative.ZN-Uxbqsmcpbedzaq-Bgctabpi Work Phone: 1([phone]) 735-271207-07-2014 History of Present illness NarrativeThis patient had [...] was also in August 2021 and was negative.NX-Kyyeuiprjijkzz-Zmaakkcu Work Phone: Evaluation noteNo assessment information available [facility] Work Phone: Evaluation note* Diagnosis Lightheaded- Primary Dizziness and giddiness Hypoxia Hypoxemia [facility] 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)- Primary 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, part unspecified Acquired hypothyroidism Unspecified hypothyroidism Oropharyngeal dysphagia Dysphagia, oropharyngeal phase documented in this encounter [facility] Work Phone: Evaluation note* Diagnosis Onset Date Resolution Status Sinus congestion acute Anemia chronic Hypothyroid chronic Skin cancer of scalp chronic 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 resolved Colon cancer acute 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 resolved [facility] Work Phone: History general Narrative - Reported* Type Description Date Medical History DM 2 Medical History Hx of skin cancer Medical History hyperlipidemia Medical History hypertension Medical History tongue cancer Surgical History Right knee arthroscopy Surgical History rotator cuff repair Surgical History tongue resection [facility] Other Hospital Discharge instructionsAmbulatory Orders* Oncology Histology Time Frame: 1 Day, Location: Determined By Patient [facility] Work Phone: Progress note Author Tiffany Escobar [facility] June 05, 2024 2:41pm Note Date/Time June 05, 2024 1:33 pm [facility] [place] [address] Cancer Center Note Signed Patient: Roxann Rm MR#: [id number] : 1950 Acct:[id number] Age/Sex: 74 / M Type: REG AMB [...] liquid. Colonoscopy was done with enemas at [facility]. I would say at this point will [...] the colonoscopy done on 05/10/2024 reviewed by [facility] pathology. Will also do PET [...] He presented to the emergency room at [facility] for abdominal pain and frequent urination. Workup [...] He was evaluated by general surgery at [facility]. The patient wanted autumn treated for this cancer even if it stage IV colon cancer with possible liver and lung mets and pericolonic lymph nodes. If this is confirmed stage IV then surgery would not be an option. He was seen by oncology as inpatient here at [facility] and they recommended can try 5-FU every 2 weeks. And once confirmed of invasive cancer then NGS and MSI status need to be checked. He wasseen by Dr. Harper medical oncologist at [facility]. Rest of the review of systems negative. [...] Gracia.Patient's brought in imaging reports today from [facility]. [facility] Medical History Medical History (Updated 06/05/24 @ [...] signed by Tiffany Escobar MD> 06/05/24 1441 [facility] Work Phone: Family History No Family History [...] section and content) DATE CREATED AUTHOR 12/22/2021 [facility] DATE CREATED AUTHOR AUTHOR'S ORGANIZ ATION 09/21/2022 [employer] DATE CREATED AUTHOR AUTHOR'S ORGANIZ ATION 10/11/2022 [facility] DATE CREATED AUTHOR AUTHOR'S ORGANIZ ATION 12/29/2022 [facility] DATE CREATED AUTHOR AUTHOR'S ORGANIZ ATION 01/22/2023 [facility] DATE CREATED AUTHOR AUTHOR'S ORGANIZ ATION 05/18/2024 [facility] DATE CREATED AUTHOR AUTHOR'S ORGANIZ ATION 05/30/2024 [facility] DATE CREATED AUTHOR AUTHOR'S ORGANIZ ATION 06/15/2024 [facility] DATE CREATED AUTHOR AUTHOR'S ORGANIZ ATION 06/16/2024 [facility] REASON FOR VISIT (unrecogniz ed [...] Active Apollo Lopes MD Attending Provider Active Sample Stitcher Relationship Specialty Start Date End Date Neo Singh MD [address] [place] [address] PCP - General 05/15/14 Irina Wesley MD [address] [place] [address] Referring Physician Otolaryngology 09/18/23 Team Status: Active [...] BE BASED ON THE PRIMARY CLINICAL RECORDS. [employer] provides no warranty or guarantee of the accuracy or completeness of information in this document.
[2024-06-19 03:45] LABS: Alanine Aminotransferase 159 U/L (16-63); Albumin Globulin Ratio 0.5; Alkaline Phosphatase 743 U/L (46-116); Aspartate Amino Transferase 165 U/L (15-37); Bilirubin Direct 0.2 mg/dL (0.0-0.2); Bilirubin Total 0.5 mg/dL (0.2-1.0)
[2024-06-19 07:43] LABS: Glucometer 218 mg/dL (74-106)
[2024-06-19] MEDS: INSULIN ASPART 300 UNIT/3 ML PEN SUBQ ×4 (07:56→21:25)
--- NOTE | 2024-06-19 08:18 | P.HP_ITS ---
HPI H&P: HPI History of Present Illness Chief complaint: SOB Narrative: This is a 74-year-old male patient with a past medical history of colon cancer with metastatic disease to the liver, lungs, and abdominal lymph nodes, history of tongue cancer s/p partial tongue resection, dysphagia, Type II DM, GERD, hypothyroidism, HTN, and COPD; who presented to the ED with weakness and cough after doing a bowel prep for a colonoscopy.. Patient cannot give a good history so I have gotten history from patient's . Patient was last admitted to our hospital 05/23-05/26/24 for aspiration pneumonia, colon cancer with mets. There was discussion about PEG tube but patient ultimately refused. He was discharged home on pureed food with nectar thick liquids. Since that admission reports they have been following with Dr. Escobar, oncology who just did a PET scan at [facility] on 06/10/24. He was set to have a colonoscopy by Dr. Toya Marcus at [facility] () today. He has a liver biopsy scheduled [facility] 06/24/24 [facility] Patient has been offered on several occasions options for hospice or palliative care. He continues to lose weight, getting weaker and is becoming more reliant on his for at home care. She says things are getting difficult. They do have home health but he cannot sleep in their bed, he cannot ambulate well. Yesterday seemed to take a turn for the worst when he started taking bowel prep for colonoscopy so came to the ER at [place]. ER findings: wbc's 4.3, hemoglobin 11.4, sodium 134, Cr 0.92, lactate 1.9, ALT 119, AST 119, alk phos 585, ammonia 57; normal trop and proBNP, albumin 2.2, CXR showed RLL pneumonia Patient was given rocephin, clindamycin, and azithromycin for aspiration pneumonia. Patient also hypoxic, 94%? so oxygen placed. This morning on exam, patient is difficult to arouse but after his came he was alert and mumbling to questions. She denies any current issues. productive cough requiring suctioning. I spent about 30 minutes with and patient and case management present discussing hospice and palliative care options. He plans to think about it. Opioid HPI Opioid Management Most Recent Pain and Opioid Data: Last Pain Scale 0 05/25/24 23:25 Last Pain Intensity 3 05/25/24 10:09 Last Pain Assessment 06/19/24 11:00 Last ORT Total Score 0 06/19/24 04:14 Last ORT Risk Category Low Risk 06/19/24 04:14 Review of Systems ROS Status of ROS unobtainable due to medical condition [facility] History (Updated 06/19/24 @ 13:03 by Debo Treadwell DO) Severe malnutrition ?E43 - Unspecified severe protein-calorie malnutrition (ICD-10) Esophageal candidiasis ?B37.81 - Candidal esophagitis (ICD-10) Aspiration pneumonia ?J69.0 - Pneumonitis due to inhalation of food and vomit (ICD-10) Macrocytic anemia ?D53.9 - Nutritional anemia, unspecified (ICD-10) Esophagitis determined by endoscopy ?K20.90 - Esophagitis, unspecified without bleeding (ICD-10) Mass of colon ?K63.89 - Other specified diseases of intestine (ICD-10) Metastatic colon cancer to liver ?C18.9 - Malignant neoplasm of colon, unspecified (ICD-10) ?C78.7 - Secondary malignant neoplasm of liver and intrahepatic bile duct (ICD-10) Metastatic cancer to lung of unknown cell type ?C78.00 - Secondary malignant neoplasm of unspecified lung (ICD-10) Anemia due to blood loss, chronic ?D50.0 - Iron deficiency anemia secondary to blood loss (chronic) (ICD-10) Moderate protein-calorie malnutrition ?E44.0 - Moderate protein-calorie malnutrition (ICD-10) Dysphagia ?R13.10 - Dysphagia, unspecified (ICD-10) History of tongue cancer ?Z85.810 - Personal history of malignant neoplasm of tongue (ICD-10) Type 2 diabetes mellitus with hyperglycemia ?E11.65 - Type 2 diabetes mellitus with hyperglycemia (ICD-10) PVD (peripheral vascular disease) ?I73.9 - Peripheral vascular disease, unspecified (ICD-10) Benign essential hypertension ?I10 - Essential (primary) hypertension (ICD-10) Transaminitis ?R74.01 - Elevation of levels of liver transaminase levels (ICD-10) Anemia ?D64.9 - Anemia, unspecified (ICD-10) Asthma ?J45.909 - Unspecified asthma, uncomplicated (ICD-10) Hyperlipidemia ?E78.5 - Hyperlipidemia, unspecified (ICD-10) Hypothyroidism ?E03.9 - Hypothyroidism, unspecified (ICD-10) Intraparenchymal hemorrhage of brain ?I61.9 - Nontraumatic intracerebral hemorrhage, unspecified (ICD-10) Family History Mother Family history of cancer Father Family history of cancer Sister Family history of diabetes mellitus Social History Within the past year, how often did you have a drink containing alcohol: never Score interpretation: A score less than 4 is consistent with normal alcohol consumption. Smoking status: Never smoker Non-prescribed substance use: denies use Highest level of school completed/degree received: decline to answer Are you now , , , , never or living with a partner: Do you think of yourself as: straight/heterosexual Gender Identity: male Meds Home Medications and Allergies Home Medications ?Medication ?Instructions ?Recorded ?Confirmed ?Type aspirin 81 mg chewable tablet 1 tab PO .qd 05/06/24 06/19/24 History atorvastatin 40 mg tablet 40 mg PO .qd 05/06/24 06/19/24 History fluticasone fur. 100 mcg-umeclid 1 inh inhalation Q24H 05/06/24 06/19/24 History 62.5 mcg-vilant 25 mcg inhalat.powder (Trelegy Ellipta) levothyroxine 75 mcg tablet 75 mcg PO .qd 05/06/24 06/19/24 History dicyclomine 20 mg tablet 20 mg PO TIDWM 05/23/24 06/19/24 History furosemide 20 mg tablet 20 mg PO Q48H 05/23/24 05/23/24 History hydralazine 10 mg tablet 10 mg PO Q6H PRN hypertension 05/23/24 06/19/24 History metformin 500 mg tablet 500 mg PO DAILY 05/23/24 06/19/24 History omeprazole 40 mg capsule,delayed 40 mg PO BID 05/23/24 06/19/24 History release ondansetron HCl 4 mg tablet 4 mg PO Q6H PRN nausea and vomiting 05/23/24 06/19/24 History Allergies Allergy/AdvReac Type Severity Reaction Status Date / Time latex Allergy Intermediate Verified 05/22/24 18:41 Exam Narrative Exam Narrative: General: Patient is alert, but difficult to understand when asked questions he mumbles yeah , cachexia, looks much older than stated age Skin: no visible rashes, or ulcers Head: atraumatic, acephalic Eyes: PERRLA, no nystagmus present, conjunctiva clear, no scleral icterus Ears: normal gross auditory acuity Nose: symmetric, no discharge, no maxillary or frontal sinus tenderness Mouth/Throat: no erythema, exudate, dry mucus membranes Heart: Normal rate and rhythm, no murmurs/rubs/gallops Lungs: audible wheezes, crackles lower lobes Abdomen: Normal audible bowel sounds, no distension, No palpable masses, no organomegaly, no rebound/guarding/ or rigidity Musculoskeletal: muscle atrophy noted, ROM is limited due to being in hospital bed, no swelling bilateral lower extremities Constitutional Vital Signs, click to edit/add: Last Vital Signs Temp 98.6 F 06/19/24 04:07 Pulse 85 06/19/24 08:00 Resp 20 06/19/24 08:00 BP 148/101 H 06/19/24 04:34 Pulse Ox 95 06/19/24 04:34 O2 Del Method Nasal Cannula 06/19/24 04:34 O2 Flow Rate 3 06/19/24 04:34 Results Labs Labs: Short CBC 06/19/24 Range/Units 02:05 WBC 4.7 (4.0-11.0) 10^3/uL Hgb 11.4 L (14.0-18.0) g/dL Hct 36.4 L (42.0-54.0) % Plt Count 229 (150-450) 10^3/uL BMP 06/19/24 02:05 Sodium 130 L Potassium 4.6 Chloride 91 L Carbon Dioxide 30.4 BUN 23.0 H Creatinine 1.08 Glucose 153 H Calcium 9.9 Liver Function 06/19/24 Range/Units 02:05 Total Bilirubin 0.5 (0.2-1.0) mg/dL Direct Bilirubin 0.2 (0.0-0.2) mg/dL AST 165 H (15-37) U/L ALT 159 H (16-63) U/L Alkaline Phosphatase 743 H (46-116) U/L Albumin 3.0 L (3.4-5.0) g/dL Assessment and Plan Assessment and Plan (1) Aspiration pneumonia: Assessment and Plan: most likely source of pneumonia as patient with history of dysphagia, coughing and presence in RLL. Will stop antibiotics currently prescribed and place on Zosyn to cover pathogens. Less likely MRSA as no history. Awaiting blood and urine cultures. Will continue current recommended diet of puree and nectar thick liquids, PEG tube mentioned last visit. I have also ordered sputum culture, history of esophagitis by burton Qualifiers: Aspiration pneumonia type: due to gastric secretions Laterality: right Lung location: lower lobe of lung Qualified Code(s): J69.0 - Pneumonitis due to inhalation of food and vomit (2) Hypoxia: Assessment and Plan: from #1, lowest documented is 94% but patient presented on O2 from EMS, currently on 2 L NC (3) Dysphagia: Assessment and Plan: causing #1 from prior tongue cancer surgery and espophagitis. Qualifiers: Dysphagia type: oropharyngeal phase Qualified Code(s): R13.12 - Dys phagia, oropharyngeal phase (4) Transaminitis: Assessment and Plan: LFT's higher than last admission, I ordered US RUQ: compatible with diffuse hepatic metastatic disease similar to the prior study. Also 1.7 cm enlarged common bile duct. Per he is scheduled for liver biopsy on 06/24/24, so this is currently being worked up by oncology. ammonia level normal (5) Severe malnutrition: Assessment and Plan: low albumin, weight loss from cancer, dysphagia (6) Metastatic colon cancer to liver: Assessment and Plan: CT from 05/22/24: 3.Numerous bilateral pulmonary metastases are not significantly changed. 4. Mediastinal, no metastases are not substantially changed. 5. Numerous hepatic metastases are not substantially changed. 6. Probable primary colon cancer in the ascending colon. 7. 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 8. Possible lytic lesion in the right femoral head. 9. Dilated small bowel and cecum likely from mechanical obstruction at the ascending colonic lesion. Biopsy from 06/11/24 hepatic flexure mass showed high-grad dysplasia, intramucosal adenocarcinoma of the colon and rectum with invasive process (7) Type 2 diabetes mellitus with hyperglycemia: Assessment and Plan: SSI as needed. Qualifiers: Diabetes mellitus penitentiary insulin use: without superintendent marine oil [employer] use Qualified Code(s): E11.65 - Type 2 diabetes mellitus with hyperglycemia (8) PVD (peripheral vascular disease): Assessment and Plan: continue aspirin and atorvastatin (9) Benign essential hypertension: Assessment and Plan: continue hydralazine as needed. (10) Asthma: Assessment and Plan: continue trelegy Qualifiers: Asthma severity: mild Asthma persistence: intermittent Asthma complication type: uncomplicated Qualified Code(s): J45.20 - Mild intermittent asthma, uncomplicated (11) Hyperlipidemia: Assessment and Plan: continue atorvastatin Qualifiers: Hyperlipidemia type: unspecified Qualified Code(s): E78.5 - Hyperlipidemia, unspecified (12) Hypothyroidism: Assessment and Plan: continue levothyroxine Qualifiers: Hypothyroidism type: unspecified Qualified Code(s): E03.9 - Hypothyroidism, unspecified (13) GERD with esophagitis: Assessment and Plan: continue omeprazole Qualifiers: Esophagitis bleeding: unspecified whether hemorrhage Qualified Code(s): K21.00 - Gastro-esophageal reflux disease with esophagitis, without bleeding Plan patient is a full code Lovenox for DVT prophylaxis With patient's fragility, cachexia and tumor burden with significant metastasis, he has a very poor prognosis and treatment would not be curative. I have discussed palliative and hospice care with family and patient and currently they wish to proceed with any an all medical treatment necessary. He is inpatient and expected to cross 2 midnights. I will call and discuss his case with his oncologist. He may be best served to transfer to [facility] where his oncology team can care for him.
--- NOTE | 2024-06-19 08:33 | US_ITS ---
The [address] [address] Patient Name: ROXANN DELAROSA MRN: [id number] date: 1950 Sex: M Assigned Patient Location: ICU Current Patient Location: ICU Accession/Order Number: [id number] Exam Date: 06/19/2024 09:02 Report Date: 06/19/2024 09:58 At the request of: UNIQUE GARCIA Procedure: US right upper quadrant EXAM: US right upper quadrant HISTORY: Transaminitis, does have history of colon mets COMPARISON: CT abdomen and CT pelvis studies dated 05/22/2024 TECHNIQUE: Ultrasound study of the right upper quadrant of the abdomen was performed. FINDINGS: Scattered somewhat ill-defined areas of intermediate echogenicity throughout the liver measuring up to 5.5 x 5.2 x 5.0 cm compatible with diffuse hepatic metastatic disease similar to the prior study. No obvious dilated intrahepatic bile ducts. Liver appears of the within upper limits of normal for size. In the gallbladder there are 2 small echodensities measuring approximately 0.6 cm each suggesting gallstones. No obvious gallbladder wall thickening or pericholecystic fluid. No obvious pancreatic mass or intrahepatic ductal dilatation. Common bile duct measures measures 1.7 cm in diameter which is significantly enlarged, this is not identified on the previous study. No gross evidence of dilated intrahepatic bile ducts. Significance of this finding is uncertain. Correlate clinically. Follow-up as needed. Right kidney appears grossly unremarkable measuring 9.0 x 3.8 x 3.6 cm in longitudinal, transverse and AP dimensions. Renal cortex appears unremarkable measuring 1.2 cm in thickness. No obvious right renal mass or evidence of obstructive uropathy. No obvious right renal calculus. US/US right upper quadrant IMPRESSION: Finding compatible diffuse hepatic metastatic disease likely similar to the prior study. Findings compatible with interval marked enlargement of the common bile duct without gross evidence of intrahepatic ductal dilatation. Significance of this finding is uncertain, correlate clinically. Follow-up as needed. Likely 2 adjacent gallstones or gallbladder without associated wall thickening. Electronically authenticated by: NELSY HAYDEN Date: 06/19/2024 09:58
[2024-06-19 09:14] LABS: Alanine Aminotransferase 119 U/L (16-63); Albumin Globulin Ratio 0.4; Albumin Level 2.2 g/dL (3.4-5.0); Alkaline Phosphatase 585 U/L (46-116); Anion Gap 14.4; Aspartate Amino Transferase 119 U/L (15-37); BUN Creatinine Ratio 20.7; Bilirubin Total 0.4 mg/dL (0.2-1.0); Calcium 9.2 mg/dL (8.5-10.1); Chloride 97 mmol/L (98-107); Estimated GFR (African America >60 (>=60); Estimated GFR (Non-African Ame >60 (>=60); Globulin 5.2 g/dL; Glucose 224 mg/dL (74-106); Potassium 4.4 mmol/L (3.5-5.1); Sodium 134 mmol/L (136-145); Total Protein 7.4 g/dL (6.4-8.2)
[2024-06-19 09:41] LABS: Glucometer 198 mg/dL (74-106)
[2024-06-19] MEDS: PIPERACILLIN SODIUM/TAZOBACTAM 3.375 GM in 0.9 % SODIUM CHLORIDE 50 ML IV ×2 (09:55→17:35)
[2024-06-19] MEDS: ENOXAPARIN SODIUM 40 MG/0.4 ML SYRINGE SUBQ (09:55)
--- NOTE | 2024-06-19 10:16 | SWNOTE1 ---
SW made a call to Evelia at [facility] to see if pt is still current with them. She is going to check in to this.
[2024-06-19 10:35] LABS: Ammonia 27 umol/L (11-32)
--- NOTE | 2024-06-19 11:06 | SWNOTE1 ---
Important Message from Medicare reviewed and discussed with patient. Pt. verbalized understanding and signed the form. Original given to patient and copy placed in patient?s chart.
[2024-06-19] MEDS: HYDRALAZINE HCL 20 MG/ML VIAL 10 MG IVP (11:12)
--- NOTE | 2024-06-19 11:14 | CM.NOTE ---
Rounds made with Dr. Treadwell. Dr. Treadwell discusses findings and plan of care with Mr. Rm. Mr. Rm very sleepy at this time. Dr. Treadwell to speak with Mrs. Rm when she arrives to hospital.
--- NOTE | 2024-06-19 11:45 | SWNOTE1 ---
SW came in to room while doctor was speaking to pt and pt's . Nurse and case management in room as well. SW did discuss various options with pt and . She did review code status, discuss his overall health, hospice and palliative care. Doctor recommended discussing everything with each other. SW offered support to pt and and let them know to reach out to SW with any questions. Pt's does the caregiving at home for . During his last stay he was walking with walker at discharge. Unsure of discharge plans at this time. SW to check back in later this afternoon.
[2024-06-19 11:51] LABS: Glucometer 206 mg/dL (74-106)
[2024-06-19 13:37] LABS: Bilirubin Urine NEGATIVE (NEGATIVE); Blood Urine NEGATIVE (NEGATIVE); Clarity Urine CLEAR (CLEAR); Color Urine LT. YELLOW (YELLOW); Glucose Urine UA NEGATIVE (NEGATIVE); Ketones Urine 40 mg/dL (NEGATIVE); Leukocyte Esterase Urine NEGATIVE (NEGATIVE); Nitrite Urine NEGATIVE (NEGATIVE); Protein Urine NEGATIVE (NEG/TRACE); Specific Gravity Urine 1.015 (1.005-1.025); Urine Microscopic Indicated NO; Urobilinogen Urine 0.2 EU/dL (0.2-1.0)
--- NOTE | 2024-06-19 13:37 | SWNOTE1 ---
SW did leave pamphlets of hospice and palliative care in room. Pt did want to know if he can get PEG tube with hospice. ROBSON called and spoke to Evelia at [facility]. She stated if he qualifies for hospice then that is all that matters, he can have PEG tube as long as he qualfiies for hospice care.
[2024-06-19 16:38] LABS: Glucometer 249 mg/dL (74-106)
[2024-06-19] MEDS: DICYCLOMINE HCL 10 MG CAPSULE 20 MG PO (17:22)
[2024-06-19] MEDS: PANTOPRAZOLE SODIUM 40 MG VIAL IV (17:22)
[2024-06-19 21:21] LABS: Glucometer 230 mg/dL (74-106)
--- NOTE | 2024-06-19 23:05 | DIETREC ---
Recommend for nutritional support: 237 mL Ensure High PRO BID, 30 mL PRO-stat BID. If enteral feeding is ordered, recommend Jevity 1.5 formula @ 55 mL/hour continuous (goal rate). Recommend water flushes of 100 mL q6 hours.
[2024-06-20] VITALS (10 sets, daily range): BP systolic 97–158; BP diastolic 60–90; PULSE 67–87; TEMP 36.4–36.7; O2SAT 87–99
[2024-06-20] MEDS: PIPERACILLIN SODIUM/TAZOBACTAM 3.375 GM in 0.9 % SODIUM CHLORIDE 50 ML IV ×3 (01:26→18:25)
[2024-06-20] MEDS: PANTOPRAZOLE SODIUM 40 MG VIAL IV ×2 (05:13→16:27)
[2024-06-20] MEDS: IPRATROPIUM/ALBUTEROL SULFATE 3 ML AMPUL.NEB 2.5 ML IH (05:15)
[2024-06-20 06:03] LABS: Hematocrit 30.7 % (42.0-54.0); Hemoglobin 9.7 g/dL (14.0-18.0); Immature Granulocytes Abs Auto 0.01 10^3/uL (0.00-0.03); Immature Granulocytes Pct Auto 0.2 % (0.0-0.5); Lymphocytes Absolute Auto 0.8 10^3/uL (1.2-3.8); Lymphocytes Percent Auto 14.5 % (20.5-60.0); Mean Corpuscular HGB Conc 31.6 g/dL (29.9-35.2); Mean Corpuscular Hemoglobin 28.1 pg (25.9-34.0); Mean Platelet Volume 9.2 fL (9.5-13.5); Monocytes Absolute Auto 0.4 10^3/uL (0.3-0.8); Neutrophils Absolute Auto 4.4 10^3/uL (1.4-6.5); Neutrophils Percent Auto 78.3 % (43.0-75.0); Platelet Count 185 10^3/uL (150-450); Red Blood Count 3.45 10^6/uL (4.70-6.10); Red Cell Distribution Width 16.3 % (11.0-15.0); White Blood Count 5.6 10^3/uL (4.0-11.0)
[2024-06-20 06:19] LABS: Alanine Aminotransferase 157 U/L (16-63); Albumin Globulin Ratio 0.5; Albumin Level 2.3 g/dL (3.4-5.0); Alkaline Phosphatase 548 U/L (46-116); Anion Gap 13.4; Aspartate Amino Transferase 159 U/L (15-37); BUN Creatinine Ratio 19.4; Bilirubin Total 0.4 mg/dL (0.2-1.0); Calcium 9.1 mg/dL (8.5-10.1); Carbon Dioxide 28.4 mmol/L (21.0-32.0); Chloride 101 mmol/L (98-107); Estimated GFR (African America >60 (>=60); Estimated GFR (Non-African Ame >60 (>=60); Globulin 4.9 g/dL; Glucose 172 mg/dL (74-106); Potassium 3.8 mmol/L (3.5-5.1); Sodium 139 mmol/L (136-145); Total Protein 7.2 g/dL (6.4-8.2)
[2024-06-20] MEDS: DICYCLOMINE HCL 10 MG CAPSULE 20 MG PO ×3 (08:20→16:27)
[2024-06-20] MEDS: ATORVASTATIN CALCIUM 40 MG TABLET PO (08:20)
[2024-06-20] MEDS: 0.9 % SODIUM CHLORIDE 1,000 ML 125 ML IV ×2 (08:21→16:28)
[2024-06-20] MEDS: ENOXAPARIN SODIUM 40 MG/0.4 ML SYRINGE SUBQ (08:21)
[2024-06-20] MEDS: INSULIN ASPART 300 UNIT/3 ML PEN SUBQ ×4 (08:22→21:08)
--- NOTE | 2024-06-20 08:30 | PM.PN ---
Progress Note: Subjective Subjective Interval history: Patient is sitting up in bed attempting to eat. He coughs with each bite of food. He says this is how it is at home. He denies fevers or chills. He is still requiring 3L of NC oxygen to maintain saturations >90%, patient dropped to 74% on Room Air with transfer from ICU to [facility] yesterday. He denies shortness of breath at this time. He again reiterates that he would like to move forward with the Liver biopsy and says he does not want palliative or hospice care at this time. I called and spoke with his oncology team and they agreed to follow up with him after hospitalization and hope to get him to outpatient liver biopsy scheduled on 06/24/24. Some concern about patient going home with his level of weakness and emaciation but patient refuses rehab or nursing facility, and wishes to return home when possible with home health. Exam Narrative Exam Narrative: General: Patient is alert, and answers questions appropriately today, cachexia, looks much older than stated age Skin: no visible rashes, or ulcers Head: atraumatic, acephalic Eyes: PERRLA, no nystagmus present, conjunctiva clear, no scleral icterus Ears: normal gross auditory acuity Heart: Normal rate and rhythm, no murmurs/rubs/gallops Lungs: audible wheezes and rhonchi, patient coughs with every bite, crackles lower lobes Abdomen: Normal audible bowel sounds, no distension, No palpable masses, no organomegaly, no rebound/guarding/ or rigidity Musculoskeletal: muscle atrophy noted, ROM is limited due to being in hospital bed, no swelling bilateral lower extremities Constitutional Vital Signs, click to edit/add: Last Vital Signs Temp 97.5 F L 06/20/24 04:05 Pulse 67 06/20/24 05:16 Resp 18 06/20/24 05:16 BP 158/84 H 06/20/24 04:05 Pulse Ox 96 06/20/24 05:51 O2 Del Method Nasal Cannula 06/20/24 05:51 O2 Flow Rate 3 06/20/24 05:51 Progress Note: Objective Labs Labs: Short CBC 06/20/24 Range/Units 05:46 WBC 5.6 (4.0-11.0) 10^3/uL Hgb 9.7 L (14.0-18.0) g/dL Hct 30.7 L (42.0-54.0) % Plt Count 185 (150-450) 10^3/uL BMP 06/19/24 06/20/24 08:46 05:46 Sodium 134 L 139 Potassium 4.4 3.8 Chloride 97 L 101 Carbon Dioxide 27.0 28.4 BUN 19.0 H 19.0 H Creatinine 0.92 0.98 Glucose 224 H 172 H Calcium 9.2 9.1 Liver Function 06/19/24 06/20/24 Range/Units 08:46 05:46 Total Bilirubin 0.4 0.4 (0.2-1.0) mg/dL AST 119 H 159 H (15-37) U/L ALT 119 H 157 H (16-63) U/L Alkaline Phosphatase 585 H 548 H (46-116) U/L Albumin 2.2 L 2.3 L (3.4-5.0) g/dL Urine 06/19/24 Range/Units 12:00 Urine Color Lt. yellow (YELLOW) Urine Clarity Clear (CLEAR) Urine pH 6.0 (5.0-9.0) Ur Specific [place] 1.015 (1.005-1.025) Urine Protein Negative (NEG/TRACE) mg/dL Urine Glucose (UA) Negative (NEGATIVE) mg/dL Progress Note: A&P Assessment and Plan (1) Aspiration pneumonia: Assessment and Plan: most likely source of pneumonia as patient with history of dysphagia, coughing and presence in RLL. continue Zosyn, awaiting blood, sputum and urine cultures. continue current recommended diet of puree and nectar thick liquids Qualifiers: Aspiration pneumonia type: due to gastric secretions Laterality: right Lung location: lower lobe of lung Qualified Code(s): J69.0 - Pneumonitis due to inhalation of food and vomit (2) Hypoxia: Assessment and Plan: from #1, lowest documented is 74% on room air, currently requiring 3L to maintain o2 sats >90%, patient would benefit from home oxygen. (3) Dysphagia: Assessment and Plan: causing #1 from prior tongue cancer surgery and espophagitis, IV protonix. Discussed PEG tube last visit but patient refused. Can discuss further with oncologist once prognosis and primary cancer diagnosis made. Qualifiers: Dysphagia type: oropharyngeal phase Qualified Code(s): R13.12 - Dysphagia, oropharyngeal phase (4) Transaminitis: Assessment and Plan: LFT's higher today, normal ammonia, US RUQ: compatible with diffuse hepatic metastatic disease similar to the prior study. Also 1.7 cm enlarged common bile duct. Patient scheduled for liver biopsy on 06/24/24, so this is currently being worked up by oncology. (5) Severe malnutrition: Assessment and Plan: low albumin, weight loss from cancer, dysphagia (6) Metastatic colon cancer to liver: Assessment and Plan: CT from 05/22/24: 3.Numerous bilateral pulmonary metastases are not significantly changed. 4. Mediastinal, no metastases are not substantially changed. 5. Numerous hepatic metastases are not substantially changed. 6. Probable primary colon cancer in the ascending colon. 7. 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 8. Possible lytic lesion in the right femoral head. 9. Dilated small bowel and cecum likely from mechanical obstruction at the ascending colonic lesion. (7) Type 2 diabetes mellitus with hyperglycemia: Assessment and Plan: SSI as needed. Qualifiers: Diabetes mellitus supervisor long goods insulin use: without supervisor long goods use Qualified Code(s): E11.65 - Type 2 diabetes mellitus with hyperglycemia (8) PVD (peripheral vascular disease): Assessment and Plan: continue aspirin and atorvastatin (9) Benign essential hypertension: Assessment and Plan: continue hydralazine as needed. (10) Asthma: Assessment and Plan: continue trelegy Qualifiers: Asthma complication type: uncomplicated Asthma persistence: intermittent Asthma severity: mild Qualified Code(s): J45.20 - Mild intermittent asthma, uncomplicated (11) Hyperlipidemia: Assessment and Plan: continue atorvastatin Qualifiers: Hyperlipidemia type: unspecified Qualified Code(s): E78.5 - Hyperlipidemia, unspecified (12) Hypothyroidism: Assessment and Plan: continue levothyroxine Qualifiers: Hypothyroidism type: unspecified Qualified Code(s): E03.9 - Hypothyroidism, unspecified (13) GERD with esophagitis: Assessment and Plan: continue omeprazole Qualifiers: Esophagitis bleeding: unspecified whether hemorrhage Qualified Code(s): K21.00 - Gastro-esophageal reflux disease with esophagitis, without bleeding Plan patient is a full code Lovenox for DVT prophylaxis
--- NOTE | 2024-06-20 09:54 | CM.NOTE ---
Rounds made with Dr. Treadwell. Dr. Treadwell discussed discussion she had with Mr. Rm's Oncologist and discussed his recommendation to do the liver biopsy. Sujey verbalizes understanding.
--- NOTE | 2024-06-20 09:56 | CM.NOTE ---
Spoke with Mrs. Rm in Mr. Rm's room regarding Dr. Treadwell's discussion with Oncology to do the Liver biopsy next week as scheduled. Also discussed potential need for oxygen. Mrs. Rm is fine with whatever oxygen company as long as in network. She also stated she is able to transport as she a transport wheelchair and a niece who will be able to help. Will continue to update.
[2024-06-20 12:21] LABS: Glucometer 177 mg/dL (74-106)
--- NOTE | 2024-06-20 14:26 | CM.NOTE ---
Called Evelia Olivo add[facility] regarding potential discharge tomorrow. Will send the DCS, Discharge med reqs tomorrow.
--- NOTE | 2024-06-20 14:29 | CM.NOTE ---
Spoke with Akua at [facility] and they are in-network with Mr. Rm's insurance. Will fax DME orders and walk test when discharged to home.
[2024-06-20] MEDS: IPRATROPIUM/ALBUTEROL SULFATE 3 ML AMPUL.NEB IH ×2 (16:32→22:02)
[2024-06-20 16:34] LABS: Glucometer 165 mg/dL (74-106)
[2024-06-20 21:01] LABS: Glucometer 295 mg/dL (74-106)
[2024-06-20 21:08] LABS: Glucometer 283 mg/dL (74-106)
[2024-06-20] MEDS: BUDESONIDE 0.5 MG/2 ML AMPULE NEB IH (22:02)
[2024-06-21] MEDS: 0.9 % SODIUM CHLORIDE 1,000 ML 125 ML IV ×2 (00:24→09:01)
[2024-06-21] MEDS: PIPERACILLIN SODIUM/TAZOBACTAM 3.375 GM in 0.9 % SODIUM CHLORIDE 50 ML IV ×2 (01:17→09:01)
[2024-06-21] MEDS: IPRATROPIUM/ALBUTEROL SULFATE 3 ML AMPUL.NEB IH (04:21)
[2024-06-21 04:25] VITALS: PULSE 81; O2SAT 94
[2024-06-21 04:36] VITALS: BP 120/71; PULSE 84; TEMP 36.8; O2SAT 92
[2024-06-21] MEDS: PANTOPRAZOLE SODIUM 40 MG VIAL IV (05:29)
[2024-06-21] MEDS: LEVOTHYROXINE SODIUM 75 MCG TABLET PO (05:33)
[2024-06-21 05:59] VITALS: O2SAT 88
[2024-06-21 06:00] VITALS: O2SAT 92
[2024-06-21 06:05] LABS: Eosinophils Percent Auto 0.9 % (0.9-7.0); Hematocrit 26.8 % (42.0-54.0); Hemoglobin 8.3 g/dL (14.0-18.0); Immature Granulocytes Abs Auto 0.01 10^3/uL (0.00-0.03); Immature Granulocytes Pct Auto 0.3 % (0.0-0.5); Lymphocytes Absolute Auto 0.6 10^3/uL (1.2-3.8); Lymphocytes Percent Auto 19.7 % (20.5-60.0); Mean Corpuscular Hemoglobin 27.5 pg (25.9-34.0); Mean Corpuscular Volume 88.7 fL (80.0-94.0); Mean Platelet Volume 9.5 fL (9.5-13.5); Monocytes Absolute Auto 0.3 10^3/uL (0.3-0.8); Monocytes Percent Auto 8.2 % (1.7-12.0); Neutrophils Absolute Auto 2.3 10^3/uL (1.4-6.5); Neutrophils Percent Auto 70.9 % (43.0-75.0); Platelet Count 169 10^3/uL (150-450); Red Blood Count 3.02 10^6/uL (4.70-6.10); Red Cell Distribution Width 16.5 % (11.0-15.0); White Blood Count 3.2 10^3/uL (4.0-11.0)
[2024-06-21 06:16] LABS: Alanine Aminotransferase 194 U/L (16-63); Albumin Globulin Ratio 0.5; Albumin Level 1.9 g/dL (3.4-5.0); Alkaline Phosphatase 448 U/L (46-116); Anion Gap 11.9; Aspartate Amino Transferase 161 U/L (15-37); BUN Creatinine Ratio 9.6; Bilirubin Total 0.3 mg/dL (0.2-1.0); Calcium 8.5 mg/dL (8.5-10.1); Carbon Dioxide 26.4 mmol/L (21.0-32.0); Chloride 106 mmol/L (98-107); Estimated GFR (African America >60 (>=60); Estimated GFR (Non-African Ame >60 (>=60); Globulin 4.1 g/dL; Glucose 160 mg/dL (74-106); Potassium 3.3 mmol/L (3.5-5.1); Sodium 141 mmol/L (136-145)
[2024-06-21 07:39] LABS: Glucometer 148 mg/dL (74-106)
[2024-06-21] MEDS: INSULIN ASPART 300 UNIT/3 ML PEN SUBQ (07:39)
[2024-06-21] MEDS: ENOXAPARIN SODIUM 40 MG/0.4 ML SYRINGE SUBQ (09:00)
[2024-06-21] MEDS: DICYCLOMINE HCL 10 MG CAPSULE 20 MG PO (09:00)
[2024-06-21] MEDS: ATORVASTATIN CALCIUM 40 MG TABLET PO (09:00)
[2024-06-21 09:43] VITALS: O2SAT 87; O2SAT 88; O2SAT 93
--- NOTE | 2024-06-21 09:47 | PM.DS1 ---
DS: Providers Provider Date of admission: 06/19/24 03:36 Primary care physician: NEO SINGH Admitting clinician: Debo Treadwell Consults: 06/19/24 Consult to Dietitian Routine Reason for consultation: weight loss, dysphagia 06/19/24 08:48 Occupational Therapy Eval and Treat Routine Reason for consultation: weakness Has provider been notified: No Physical Therapy Eval and Treat Routine Reason for consultation: weakness Has provider been notified: No Discharging clinician: Debo Treadwell DS: Diagnosis Discharge Diagnosis (1) Aspiration pneumonia: Qualifiers: Aspiration pneumonia type: due to gastric secretions Laterality: right Lung location: lower lobe of lung Qualified Code(s): J69.0 - Pneumonitis due to inhalation of food and vomit (2) Chronic respiratory failure: Qualifiers: Respiratory failure complication: hypoxia Qualified Code(s): J96.11 - Chronic respiratory failure with hypoxia (3) Hypoxia: (4) Dysphagia: Qualifiers: Dysphagia type: oropharyngeal phase Qualified Code(s): R13.12 - Dysphagia, oropharyngeal phase (5) Transaminitis: (6) Severe malnutrition: (7) Metastatic colon cancer to liver: (8) Type 2 diabetes mellitus with hyperglycemia: Qualifiers: Diabetes mellitus intermediate insulin use: without termite exterminator helper use Qualified Code(s): E11.65 - Type 2 diabetes mellitus with hyperglycemia (9) PVD (peripheral vascular disease): (10) Benign essential hypertension: (11) Asthma: Qualifiers: Asthma complication type: uncomplicated Asthma persistence: intermittent Asthma severity: mild Qualified Code(s): J45.20 - Mild intermittent asthma, uncomplicated (12) Hyperlipidemia: Qualifiers: Hyperlipidemia type: unspecified Qualified Code(s): E78.5 - Hyperlipidemia, unspecified (13) Hypothyroidism: Qualifiers: Hypothyroidism type: unspecified Qualified Code(s): E03.9 - Hypothyroidism, unspecified (14) GERD with esophagitis: Qualifiers: Esophagitis bleeding: unspecified whether hemorrhage Qualified Code(s): K21.00 - Gastro-esophageal reflux disease with esophagitis, without bleeding Plan DS: Summary Hospital Course Hospital Course: This is a 74-year-old male patient with a past medical history of colon cancer with metastatic disease to the liver, lungs, and abdominal lymph nodes, history of tongue cancer s/p partial tongue resection, dysphagia, Type II DM, GERD, hypothyroidism, HTN, and COPD; who presented to the ED with weakness and cough after doing a bowel prep for a colonoscopy.Patient was last admitted to our hospital 05/23-05/26/24 for aspiration pneumonia, colon cancer diagnosis with mets. There was discussion about PEG tube but patient ultimately refused. He was discharged home on pureed food with nectar thick liquids. Since that admission reports they have been following with Dr. Escobar, oncology who just did a PET scan at [facility] on 06/10/24. He was set to have a colonoscopy by Dr. Toya Marcus at [facility] () today. He has a liver biopsy scheduled on 06/24/24 with IR at [facility]. Patient has been offered on several occasions options for hospice or palliative care. He continues to lose weight, getting weaker and is becoming more reliant on his for at home care. She says things are getting difficult. They do have home health but he cannot sleep in their bed, he cannot ambulate well. ER findings: wbc's 4.3, hemoglobin 11.4, sodium 134, Cr 0.92, lactate 1.9, ALT 119, AST 119, alk phos 585, ammonia 57; normal trop and proBNP, albumin 2.2, CXR showed RLL pneumonia. Patient was given rocephin, clindamycin, and azithromycin for aspiration pneumonia, I stopped and placed on Zosyn. Patient also hypoxic, 87% on room air and with ambulation, Patient recovered to 93% on 1 L NC, so patient will need home oxygen at 1L NC and continuous at discharge. This will be provided at home by [facility]. He will be treated for Aspiration pneumonia with Augmentin 500/125mg BID x 7 days. He has liver biopsy scheduled 06/24/24 and is holding his aspirin until then. The issue of PEG tube did come up this admission but after discussion with patient and family, they are good with pursuing diagnosis and treatment plan by oncology and then discussing PEG tube if that is needed. LFT's elevated with US findings of liver masses, most likely metastatic disease, has biopsy scheduled. He has appropriate follow up's. Patient will resume home health services and has wheelchair for transport. He will be discharged home today. He may return to the ER with any worsening signs or symptoms. Time Spent with Patient Time attestation: Total time spent providing and/or coordinating discharge services: Exam Narrative Exam Narrative: General: Patient is alert, and answers questions appropriately today, cachexia, looks much older than stated age Skin: no visible rashes, or ulcers Head: atraumatic, acephalic Eyes: PERRLA, no nystagmus present, conjunctiva clear, no scleral icterus Ears: normal gross auditory acuity Heart: Normal rate and rhythm, no murmurs/rubs/gallops Lungs: audible wheezes and rhonchi, patient coughs with every bite, crackles lower lobes Abdomen: Normal audible bowel sounds, no distension, No palpable masses, no organomegaly, no rebound/guarding/ or rigidity Musculoskeletal: muscle atrophy noted, ROM is limited due to being in hospital bed, no swelling bilateral lower extremities Constitutional Vital Signs, click to edit/add: Last Vital Signs Temp 98.2 F 06/21/24 04:36 Pulse 84 06/21/24 04:36 Resp 16 06/21/24 08:00 BP 120/71 06/21/24 04:36 Pulse Ox 92 L 06/21/24 06:00 O2 Del Method Nasal Cannula 06/21/24 06:00 O2 Flow Rate 1 06/21/24 06:00 DS: Data Data Completed and Pending Labs on day of discharge: Labs from last 24 hours 06/21/24 06/21/24 06/20/24 07:38 05:44 21:07 WBC 3.2 L RBC 3.02 L Hgb 8.3 L Hct 26.8 L MCV 88.7 MCH 27.5 MCHC 31.0 RDW 16.5 H Plt Count 169 MPV 9.5 Neut % (Auto) 70.9 Lymph % (Auto) 19.7 L [place] % (Auto) 8.2 Eos % (Auto) 0.9 Baso % (Auto) 0.0 L Neut # (Auto) 2.3 Lymph # (Auto) 0.6 L [place] # (Auto) 0.3 Eos # (Auto) 0.0 Baso # (Auto) 0.0 Abs Immat Gran (auto) 0.01 Imm/Tot Granulo (auto) 0.3 Sodium 141 Potassium 3.3 L Chloride 106 Carbon Dioxide 26.4 Anion Gap 11.9 BUN 9.0 Creatinine 0.94 Est GFR ( Amer) >60 Est GFR (Non-Af Amer) >60 BUN/Creatinine Ratio 9.6 Glucose 160 H Calcium 8.5 Total Bilirubin 0.3 AST 161 H ALT 194 H Alkaline Phosphatase 448 H Total Protein 6.0 L Albumin 1.9 L Globulin 4.1 Albumin/Globulin Ratio 0.5 POC Glucose 148 H 283 H 06/20/24 06/20/24 06/20/24 20:59 16:27 12:15 WBC RBC Hgb Hct MCV MCH MCHC RDW Plt Count MPV Neut % (Auto) Lymph % (Auto) [place] % (Auto) Eos % (Auto) Baso % (Auto) Neut # (Auto) Lymph # (Auto) [place] # (Auto) Eos # (Auto) Baso # (Auto) Abs Immat Gran (auto) Imm/Tot Granulo (auto) Sodium Potassium Chloride Carbon Dioxide Anion Gap BUN Creatinine Est GFR ( Amer) Est GFR (Non-Af Amer) BUN/Creatinine Ratio Glucose Calcium Total Bilirubin AST ALT Alkaline Phosphatase Total Protein Albumin Globulin Albumin/Globulin Ratio POC Glucose 295 H 165 H 177 H Preliminary micro results at discharge 06/19/24 12:02 - Preliminary Sputum Spc Sputum Induction Discharge Plan Discharge Disposition: Home Health Service Condition: Fair Discharge Medications: New amoxicillin-pot clavulanate [Augmentin] 500-125 mg tablet 1 tab PO Q12H 7 Days Qty: 14 0RF Continued dicyclomine 20 mg tablet 20 mg PO TIDWM furosemide 20 mg tablet 20 mg PO DAILY hydralazine 10 mg tablet 10 mg PO Q6H PRN (Reason: hypertension) metformin 500 mg tablet 500 mg PO DAILY ondansetron HCl 4 mg tablet 4 mg PO Q6H PRN (Reason: nausea and vomiting) omeprazole 40 mg capsule,delayed release(DR/EC) 40 mg PO BID atorvastatin 40 mg tablet 40 mg PO .qd Trelegy Ellipta 100-62.5-25 mcg blister with device 1 inh INHALATION Q24H levothyroxine 75 mcg tablet 75 mcg PO .qd Held aspirin 81 mg tablet,chewable 1 tab PO .qd Hold Instructions: Resume on 06/25/24. Activity: ambulate only with your walker, increase activity as tolerated and wear oxygen at all times Activity Detail: 1 L oxygen via NC continuous Diet: other Diet Detail: puree diet with nectar thick liquids Print Language: Bahraini Forms: Portal Instructions Follow Up Appointments: June 24 for ultrasound biopsy (prescheduled) Jul.03 follow [address] appt[address] with Dr. Escobar - Oncology (prescheduled) Discharge location: Home with Home Health
--- NOTE | 2024-06-21 09:52 | PC.NURSE ---
patient on 1 Liter of O2 during this test when O2 was required
--- NOTE | 2024-06-21 10:03 | CM.NOTE ---
Rounds made with Dr. Treadwell. Walk test to be done to determine need for home oxygen. Plan for discharge today.
--- NOTE | 2024-06-21 10:39 | PT.DAILY ---
Physical Therapy Daily Note PT Daily Note/Assess Start: 06/21/24 10:32 Freq: Status: Active Protocol: Document 06/21/24 10:32 HEATH (Rec: 06/21/24 10:39 HEATH [id number]) Physical Therapy Daily Note/Assessment Time In/Time Out Time In 09:50 Time Out 10:05 Pain In Pain N/A Pain Out Pain N/A Subjective Subjective Pt supine upon arrival. Nursing reports dc this morning home with . Pt agreeable to PT prior to dc. Therapeutic Exercise Time Therapeutic Exercise Minutes (minutes) 5 Therapeutic Exercise Units 0 Therapeutic Exercise Treatment Therapeutic Exercise Treatment Pt performs bilat LE strengthening ex while sitting EOB unsupported 10x ea. No LOB noticed. Therapeutic Activity Time Therapeutic Activity Minutes (minutes) 6 Therapeutic Activity Units 1 Therapeutic Activity Treatment Bed Mobility Ability Minimum Assist Chair Transfer Ability Minimum Assist Therapeutic Activity Comments Supine>sit Florentin to advance upper body to sit at EOB. Pt sits EOB 5 min while completing seated ex without LOB. Sit>stand from EOB to RW Florentin due to posterior lean. Pt amb 20' around bed to BS chair with RW, CGA. Pt easily fatigued. Remains in BS chair with call light in reach and needs met. Total Physical Therapy Time Total Therapy Minutes 11 Total Physical Therapy Units 1 Summary Daily Note Summary Cont to require assistance for transfers. Posterior lean with standing initially but improved once up and walking. Would benefit from [facility] to improve strength and mobility while at home.
--- NOTE | 2024-06-21 11:13 | CM.NOTE ---
Walk test, H&P, DCS and order for oxygen sent to [facility] for oxygen 1L/NC continuous with portability. Spoke to Akua at [facility] and she instructed we can send home with a [facility] tank. Went home have Mrs. Rm call [facility] and they will set up time to deliver equipment. Spoke with Mrs. Rm and gave her number for [facility] and to call when home to set up appointment time. Understanding verbalized.
--- NOTE | 2024-06-21 11:15 | CM.NOTE ---
Discharge instructions (CRF) discharge summary, H&P, Progress notes and discharge medications faxed to [facility]. Spoke with Evelia feliciano [facility] to alert her to discharge and resumption of care.
[2024-06-21 11:17] VITALS: O2SAT 94
--- NOTE | 2024-06-24 14:05 | CM.DCFOLLOWU ---
Person spoke with: pt's How are you feeling? he is at [facility] getting his liver biopsy, but they are admitting him to the hospital How is your pain? unsure Did you understand your discharge instructions? yes Do you have any questions about your discharge instructions? no Were you given any prescriptions at discharge? unsure, being admitted to [facility] Were you able to get your prescriptions filled? unsure, being admitted to [facility] Do you understand how to take your medications as ordered? yes Do you have any questions about your follow up appointment and do you plan to keep your follow up appointment? unsure, being admitted to [facility] Is there anything else that you would like to discuss? no Questions/Comments/Concerns/Other: N/A
== END 2024-06-21 11:31 | disposition home health service (06) | DRG 177 ==
LOC: ER 03:04 → ICU 03:36 → MS 14:37
PROVIDERS: Registered Nurse; Admitting Provider Family Medicine; Emergency Provider Emergency Medicine; PCP Family Medicine; Visit Provider Family Medicine
DX: J69.0 Pneumonitis due to inhalation of food and vomit (principal); E43 Unspecified severe protein-calorie malnutrition; C18.9 Malignant neoplasm of colon, unspecified; C78.7 Secondary malignant neoplasm of liver and intrahepatic bile duct; C78.00 Secondary malignant neoplasm of unspecified lung; C77.2 Secondary and unspecified malignant neoplasm of intra-abdominal lymph nodes; R64 Cachexia; J96.11 Chronic respiratory failure with hypoxia; Z68.1 Body mass index [BMI] 19.9 or less, adult; Z85.810 Personal history of malignant neoplasm of tongue; I10 Essential (primary) hypertension; Z87.01 Personal history of pneumonia (recurrent); R13.12 Dysphagia, oropharyngeal phase; R74.01 Elevation of levels of liver transaminase levels; E11.65 Type 2 diabetes mellitus with hyperglycemia; J15.0 Pneumonia due to Klebsiella pneumoniae; E11.51 Type 2 diabetes mellitus with diabetic peripheral angiopathy without gangrene; J45.20 Mild intermittent asthma, uncomplicated; E78.5 Hyperlipidemia, unspecified; E03.9 Hypothyroidism, unspecified; K21.00 Gastro-esophageal reflux disease with esophagitis, without bleeding; J44.89 Other specified chronic obstructive pulmonary disease; Z99.81 Dependence on supplemental oxygen; Z79.890 Hormone replacement therapy; Z79.82 Long term (current) use of aspirin; Z79.84 Long term (current) use of oral hypoglycemic drugs
CPT/HCPCS: 36415; 71045; 76705; 80048; 80053; 80076; 81003; 82140; 82948; 83605; 84484; 85025; 87040; 87070; 87150; 87186; 87205; 93005; 94640; 94761; 96361; 96365; 96366; 96367; 96368; 96372; 96375; 96376; 97161; 97165; 97530; 99285; J0360; J0456; J0696; J0736; J1650; J2543